=== PATIENT | male | born 1955 | race Caucasian/White ===

== ENCOUNTER 2023-04-11 20:49 | Outpatient (OUT) | payer MEDICARE, OTHER, SELFPAY | END 2023-04-11 20:50 | disposition home or self-care (01) | LOC: SLEEP 20:51 | PROVIDERS: PCP Internal Medicine; Visit Provider Internal Medicine | DX: G47.33 Obstructive sleep apnea (adult) (pediatric) (principal); I11.0 Hypertensive heart disease with 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; I25.10 Atherosclerotic heart disease of native coronary artery without angina pectoris; I50.20 Unspecified systolic (congestive) 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; F41.1 Generalized anxiety disorder; E78.00 Pure hypercholesterolemia, unspecified; N40.1 Benign prostatic hyperplasia with lower urinary tract symptoms | CPT/HCPCS: 95810 ==

== ENCOUNTER 2023-04-20 10:43 | Outpatient (OUT) | payer MEDICARE, OTHER, SELFPAY ==
[2023-04-20 12:23] LABS: Anion Gap 11.8; BUN Creatinine Ratio 27.2; Calcium 9.3 mg/dL (8.5-10.1); Carbon Dioxide 27.6 mmol/L (21.0-32.0); Chloride 103 mmol/L (98-107); Estimated GFR (African America >60 (>=60); Estimated GFR (Non-African Ame >60 (>=60); Glucose 103 mg/dL (74-106); Potassium 4.4 mmol/L (3.5-5.1)
[2023-04-20 13:20] LABS: Sodium 138 mmol/L (136-145)
== END 2023-04-20 10:44 | disposition home or self-care (01) ==
LOC: LAB 10:45
PROVIDERS: PCP Internal Medicine; Visit Provider Internal Medicine Cardiovascular Disease
DX: I50.9 Heart failure, unspecified (principal); I42.8 Other cardiomyopathies; R06.02 Shortness of breath
CPT/HCPCS: 36415; 80048; 83880

== ENCOUNTER 2023-05-04 22:43 | Outpatient (OUT) | payer MEDICARE, OTHER, SELFPAY | END 2023-05-04 22:44 | disposition home or self-care (01) | LOC: SLEEP 22:43 | PROVIDERS: PCP Internal Medicine; Visit Provider Internal Medicine | DX: G47.33 Obstructive sleep apnea (adult) (pediatric) (principal) | CPT/HCPCS: 95811 ==

== ENCOUNTER 2023-06-20 09:36 | Outpatient (OUT) | payer MEDICARE, OTHER, SELFPAY ==
[2023-06-20 11:02] LABS: Anion Gap 9.4; BUN Creatinine Ratio 23.7; Calcium 9.2 mg/dL (8.5-10.1); Carbon Dioxide 28.9 mmol/L (21.0-32.0); Chloride 101 mmol/L (98-107); Estimated GFR (African America >60 (>=60); Estimated GFR (Non-African Ame >60 (>=60); Glucose 126 mg/dL (74-106); Potassium 4.3 mmol/L (3.5-5.1); Sodium 135 mmol/L (136-145)
== END 2023-06-20 09:37 | disposition home or self-care (01) ==
PROVIDERS: PCP Internal Medicine; Visit Provider Nurse Practitioner
DX: I42.8 Other cardiomyopathies (principal)
CPT/HCPCS: 36415; 80048

== ENCOUNTER 2023-09-21 12:18 | Outpatient (RCR) | payer MEDICARE, OTHER, SELFPAY | END 2023-09-30 15:45 | disposition home or self-care (01) | LOC: MM 12:18 | PROVIDERS: PCP Internal Medicine; Visit Provider Internal Medicine | DX: Z51.81 Encounter for therapeutic drug level monitoring (principal); Z79.01 Long term (current) use of 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s; I48.91 Unspecified atrial fibrillation | CPT/HCPCS: 85610; G0463 ==

== ENCOUNTER 2023-10-03 00:38 | Outpatient (RCR) | payer MEDICARE, OTHER, SELFPAY | END 2023-11-02 15:45 | disposition home or self-care (01) | LOC: MM 00:38 | PROVIDERS: PCP Internal Medicine; Visit Provider Internal Medicine | DX: Z51.81 Encounter for therapeutic drug level monitoring (principal); Z79.01 Long term (current) use of 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s; I48.91 Unspecified atrial fibrillation | CPT/HCPCS: 85610; G0463; J3430 ==

== ENCOUNTER 2023-11-03 01:28 | Outpatient (RCR) | payer MEDICARE, OTHER, SELFPAY | END 2023-12-01 17:08 | disposition home or self-care (01) | LOC: MM 01:28 | PROVIDERS: PCP Internal Medicine; Visit Provider Internal Medicine | DX: Z51.81 Encounter for therapeutic drug level monitoring (principal); Z79.01 Long term (current) use of 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s; I48.91 Unspecified atrial fibrillation | CPT/HCPCS: 85610; G0463 ==

== ENCOUNTER 2023-12-02 01:03 | Outpatient (RCR) | payer MEDICARE, OTHER, SELFPAY | END 2023-12-30 13:00 | disposition home or self-care (01) | LOC: MM 01:03 | PROVIDERS: PCP Internal Medicine; Visit Provider Internal Medicine | DX: Z51.81 Encounter for therapeutic drug level monitoring (principal); Z79.01 Long term (current) use of 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s; I48.91 Unspecified atrial fibrillation | CPT/HCPCS: 85610; G0463 ==

== ENCOUNTER 2024-01-02 03:12 | Outpatient (RCR) | payer MEDICARE, OTHER, SELFPAY | END 2024-01-31 17:45 | disposition home or self-care (01) | LOC: MM 03:12 | PROVIDERS: PCP Internal Medicine; Visit Provider Internal Medicine | DX: Z51.81 Encounter for therapeutic drug level monitoring (principal); Z79.01 Long term (current) use of 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s; I48.91 Unspecified atrial fibrillation | CPT/HCPCS: 85610; G0463 ==

== ENCOUNTER 2024-01-31 16:50 | Outpatient (OUT) | payer MEDICARE, OTHER, SELFPAY ==
[2024-01-31 17:12] LABS: Basophils Absolute Auto 0.1 10^3/uL (0.0-0.1); Basophils Percent Auto 0.5 % (0.2-2.0); Eosinophils Absolute Auto 0.4 10^3/uL (0.0-0.7); Eosinophils Percent Auto 3.5 % (0.9-7.0); Hematocrit 36.5 % (42.0-54.0); Hemoglobin 12.5 g/dL (14.0-18.0); Immature Granulocytes Abs Auto 0.09 10^3/uL (0.00-0.03); Immature Granulocytes Pct Auto 0.7 % (0.0-0.5); Lymphocytes Percent Auto 23.8 % (20.5-60.0); Mean Corpuscular HGB Conc 34.2 g/dL (29.9-35.2); Mean Corpuscular Hemoglobin 31.4 pg (25.9-34.0); Mean Corpuscular Volume 91.7 fL (80.0-94.0); Mean Platelet Volume 9.8 fL (9.5-13.5); Monocytes Absolute Auto 1.2 10^3/uL (0.3-0.8); Monocytes Percent Auto 9.2 % (1.7-12.0); Neutrophils Absolute Auto 7.8 10^3/uL (1.4-6.5); Neutrophils Percent Auto 62.3 % (43.0-75.0); Platelet Count 236 10^3/uL (150-450); Red Blood Count 3.98 10^6/uL (4.70-6.10); Red Cell Distribution Width 13.3 % (11.0-15.0); White Blood Count 12.6 10^3/uL (4.0-11.0)
[2024-01-31 17:46] LABS: Percent Iron Saturation 24.4 %
== END 2024-01-31 16:51 | disposition home or self-care (01) ==
LOC: LAB 16:52
PROVIDERS: PCP Internal Medicine; Visit Provider Internal Medicine
DX: K92.1 Melena (principal); I10 Essential (primary) hypertension; I48.0 Paroxysmal atrial fibrillation
CPT/HCPCS: 36415; 82728; 83540; 83550; 85025

== ENCOUNTER 2024-02-01 00:14 | Outpatient (RCR) | payer MEDICARE, OTHER, SELFPAY | END 2024-03-02 11:07 | disposition home or self-care (01) | LOC: MM 00:14 | PROVIDERS: PCP Internal Medicine; Visit Provider Internal Medicine | DX: Z51.81 Encounter for therapeutic drug level monitoring (principal); Z79.01 Long term (current) use of 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s; I48.91 Unspecified atrial fibrillation | CPT/HCPCS: 85610; G0463 ==

== ENCOUNTER 2024-03-05 00:13 | Outpatient (RCR) | payer MEDICARE, OTHER, SELFPAY | END 2024-03-30 09:55 | disposition home or self-care (01) | LOC: MM 00:13 | PROVIDERS: PCP Internal Medicine; Visit Provider Internal Medicine | DX: Z51.81 Encounter for therapeutic drug level monitoring (principal); Z79.01 Long term (current) use of 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s; I48.91 Unspecified atrial fibrillation | CPT/HCPCS: 85610; G0463 ==

== ENCOUNTER 2024-03-23 17:05 | Outpatient (OUT) | payer MEDICARE, OTHER, SELFPAY ==
--- OUTSIDE RECORDS SUMMARY | 2024-03-23 17:12 | XMS_ITS | CCD ---
Author Organization [facility] Care Team Providers Care Batch Trucker Name Role Phone Jairo Corbin Unavailable DO Jairo Corbin Primary Care Provider DO Shalom Germain Emergency Provider DinamoMD Jair Solo Admit Provider DO Brad Livingston Attending Provider KRISTEN Chong Other Provider Unavailable DO Papo Lucio Other Provider MD Kings Banegas Other Provider [phone] MD Jorge Burger Other Provider [phone] MD John Pena Other Provider MD Dano Anderson Other Provider DIANA Ken Other Provider [phone] MD Mary Neal Other Provider MD Danny Teresa Other Provider MD Kerline Thompson Other Provider Tory [facility]- Sravani Julian Other Provider [phone] MD Sparkle Joseph Other Provider DO Papo Lucio Attending Provider DR JAIRO CORBIN Admitting Unavailable BALL, DR BARRETT Attending Unavailable BALL, DR BARRETT Consulting Unavailable BALL, DR BARRETT Primary Care Unavailable UNLU, ZARIA Consulting Unavailable SHAQUILLE, DR BARRETT Attending Unavailable BALL, DR BARRETT Consulting Unavailable BALL, DR BARRETT Primary Care Unavailable BALL, DR BARRETT Admitting Unavailable MECHELLE, DR IVÁN Carter Consulting Unavailable SHAQUILLE, DR BARRETT Attending Unavailable SHAQUILLE, DR BARRETT Consulting Unavailable SHAQUILLE, DR BARRETT Primary Care Unavailable SHAQUILLE, DR BARRETT Admitting Unavailable MECHELLE, DR IVÁN Carter Consulting Unavailable Jairo Corbin E Unavailable Unavailable Unavailable Shaquille, Dr. Jairo Lo Primary Care Alli Lucio, Dr. Jorge Crystal Referring Unava ilable Naveed, Dr. Jorge Crystal Attending Dinava deshaun Corbin, Dr. Jairo Lo Primary Care Alli Corbin, Dr. Jairo Lo Primary Care Alli Aldrigde, MsBrandon Chandler Referring Alli Aldridge, MsBrandon Chandler Attending Alli Corbin, Dr. Jairo Lo Primary Care Alli Lucio, Dr. Jorge Crystal Referring Unava ilable Naveed, Dr. Jorge Crystal Attending Dinava ilarianna Lucio, Dr. Jorge Crystal Attending Dinava ilDO Jairo Whyte Primary Care Provider [phone] DO Jairo Wild Attending Provider [phone] Jairo Corbin DO Primary Care Provider Jairo Wild DO Unavailable Unavailable Primary Care Provider Unavailabl Jairo Sr DO Primary Care Provider Brad Livingston Attending Unavailable Jairo Corbin Primary Care Unavailable Bing Chong Consulting Unavailable Jair Harp Admitting Unavailable Papo Lucio Consulting Unavailable Macie, Kings Consulting Unavailable Jorge Burger Consulting Unavail able John Pena Consulting Unavailable Dano Anderson Consulting Unavailab Karlo Parrish Consulting Unavailable Mary Neal Consulting Unavailable Danny Teresa Consulting Unavailab Kerline Oliver Consulting Unavailable Sravani Spears Consulting Unavailable Sparkle Joseph Consulting Unavailable Jairo Wild Attending Unavailable Jairo Corbin Primary Care Unavailable Jairo Wild Admitting Unavailable Papo Lucio Attending Unavailable Jairo Corbin Primary Care Unavailable Papo Lucio Admitting Unavailable Jairo Wild Attending Unavailable Jairo Corbin Primary Care Unavailable Jairo Wild Admitting Unavailable Ball, Jairo Primary Care Unavailable Bing Chong Consulting Unavailable Bon Harman Admitting UnavailBon Carbajal Attending UnavailPapo Mclain Consulting Unavailable Kings Banegas Consulting Unavailable Jorge Burger Consulting Unavail able John Pena Consulting Unavailable Justin, Dano Consulting Unavailab Karlo Parrish Consulting Unavailable Mary Neal Consulting Unavailable Danny Teresa Consulting Unavailab Kerline Oliver Consulting Unavailable Sravani Spears Consulting Unavailable Sparkle Joseph Consulting Unavailable Ball DO, Jairo E Primary Care Provider KENNETH NEALA Referring Unavailable BALL, JAIRO E Primary Care Unavailable ALDRIDGE, KARLO K Referring Unavailable BALL, JAIRO E Primary Care Unavailable ALDRIDGE, KARLO K Referring Unavailable BALL, JAIRO E Primary Care Unavailable ALDRIDGE, KARLO K Referring Unavailable BALL, JAIRO E Primary Care Unavailable ALDRIDGE, KARLO K Referring Unavailable BALL, JAIRO E Primary Care Unavailable ALDRIDGE, KARLO K Attending Unavailable BALL, JAIRO E Primary Care Unavailable NEAL, MARY Attending Unavailable BALL, JAIRO E Primary Care Unavailable ALDRIDGE, KARLO K Referring Unavailable NEAL, MARY Attending Unavailable NEAL, MARY Referring Unavailable BALL, JAIRO E Primary Care Unavailable NEAL, MARY Attending Unavailable NEAL, MARY Referring Unavailable BALL, JAIRO E Primary Care Unavailable ALDRIDGE, KARLO K Attending Unavailable NEAL, MARY Referring Unavailable BALL, JAIRO E Primary Care Unavailable Allergies Allergy Classification Reported Allergen(s) Allergy Type Date of Onset Reaction(s) Facility (20 sources) Corticosteroids Propensity to adverse reactions sensitivty Sefaira Other (5 sources) Usbzczf-GAJ-ArC Reductase Inhibitor; Translations: [Dccbgdj-LBJ-SeU Reductase Inhibitor] Propensity to adverse reactions 02-26-20 Hives, muscle aches [facility] (5 sources) Hmg-Coa Reductase Inhibitors (Statins); Translations: [Statins] Allergy to drug (finding) Other -[facility] DO Work Phone: (8 sources) HMG-CoA reductase inhibitor; Translations: [MQCLPEG-FUD-YRA REDUCTASE INHIBITORS] Drug Allergy 07-05-20 23 Unknown, Other (See Comments) [facility] (7 sources) Non-steroidal anti-inflammatory agent; Translations: [NSAIDS (NON-STEROIDAL ANTI-INFLAMMATORY DRUG)] Drug Intolerance 01-03-20 08 Unknown, Other (See Comments) [facility] (3 sources) Corticosteroids; Translations: [Corticosteroids (Glucocorticoids)] Allergy to substance 11-01-19 24 sensitivty [facility] Medications Current Medications Medication Drug Class(es) Dates Sig (Normalized) Sig (Original) ascorbic acid 1000 mg oral tablet (20 sources) Vitamin C Start: 01-31-2024 Ascorbic Acid (Vitamin C) (Vitamin C With Gabbi Hips) 1,000 mg tablet Active 500 MG PO Daily January 31, 2024 3:50pm Start: 09-01-2023 End: 01-31-2024 take 1 tablet by mouth once daily Ascorbic Acid (Vitamin C) (Vitamin C With Gabbi Hips) 1,000 mg Tablet Discontinued 1000 MG PO Daily September 01, 2023 1:00am January 31, 2024 3:54pm Start: 02-24-2023 End: 10-21-2023 take 1 tablet by mouth once daily Ascorbic Acid (Vitamin C) (Vitamin C) 500 mg Tablet,Chewable Discontinued 500 MG PO Daily February 24, 2023 12:00am October 21, 2023 5:11pm take 1 capsule by mo [facility] once daily ascorbic acid, vitamin C, 500 mg capsule Take 1 capsule by mouth once daily. Active take 2 tablets by mo [facility] every twenty-four hours Vitamin C 500 MG 2 tablets Orally Once a day Active aspirin 81 mg delayed release oral tablet (20 sources) Platelet Aggregation Inhibitor, Nonsteroidal Anti-inflammatory Drug Start: 02-27-2023 End: 09-05-2023 take 1 tablet by mouth every twenty-four hours Aspirin 81 81 MG 1 tablet Orally Once a day January, Active Start: 02-27-2023 take 1 tablet by mouth once da lissette Aspirin 81 81 MG 1 tablet Orally Once a day for 30 days January, Active Start: 02-25-2023 take 1 tablet by mouth once da lissette Aspirin (Children's Aspirin) 81 mg Tablet,Chewable Active 81 MG PO Daily 90 90 February 25, 2023 12:00am carvedilol 12.5 mg oral tablet (20 sources) alpha-Adrenergic Fannie, beta-Adrenergic Fannie Start: 02-27-2023 End: 01-31-2024 take 1 tablet by mouth twice daily at mealtime carvedilol (Coreg) 12.5 mg tablet Take 1 tablet (12.5 mg) by mouth 2 times a day with meals. 10/24/2023 Active Start: 02-25-2023 End: 11-10-2023 take 6.25 mg by mouth twice daily at mealtime Carvedilol Discontinued 6.25 MG PO Twice daily with meals 60 February 25, 2023 12:00am October 24, 2023 2:28pm cetirizine hydrochloride 10 mg oral tablet (12 sources) Histamine-1 Receptor Antagonist Start: 09-01-2023 take 10 mg by mouth at bedtime Cetirizine Active 10 MG PO Bedtime September 01, 2023 1:00am take 1 capsule by mo ut once daily at bedtime cetirizine (ZYRTEC) 10 mg capsule Take 1 capsule (10 mg) by mouth once daily at bedtime. Active digoxin 0.125 mg oral tablet (7 sources) Cardiac Glycoside Start: 10-24-2023 digoxin (Lanoxin) 125 MCG tablet 1 tablet (125 mcg) once daily. 10/24/2023 Active doxycycline hyclate 100 mg oral capsule (7 sources) Tetracycline-cla ss Drug Start: 12-10-2022 take 1 capsule by mouth twice daily Doxycycline Hyclate 100 MG 1 capsule Orally twice daily for 7 days Dec, Active Fish Oils (20 sources) furosemide 20 mg oral tablet (20 sources) Loop Diuretic Start: 11-10-2023 End: 11-09-2024 take 1 tablet by mouth twice daily furosemide (Lasix) 20 mg tablet Indications: 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 congestive 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, NYHA class 2 (Multi) , Persistent atrial fibrillation (Multi) Take 1 tablet (20 mg) by mouth 2 times a day. 180 tablet 3 11/10/2023 11/09/2024 Active Start: 10-24-2023 End: 01-31-2024 take 2 tablets by mouth once daily Furosemide (Lasix) 20 mg tablet Discontinued 40 MG PO Daily 60 October 24, 2023 12:22pm January 31, 2024 3:54pm Start: 10-21-2023 End: 10-24-2023 take 10 mg by mouth once daily Furosemide (Lasix) 20 m g tablet Discontinued 10 MG PO Daily October 21, 2023 1:00am October 24, 2023 12:22pm Start: 09-29-2023 End: 11-10-2023 take 0.5 tablet by mouth once daily furosemide (Lasix) 20 mg tablet Indications: Non-ischemic cardiomyopathy (CMS/HCC) , 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 congestive 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, NYHA class 2 (CMS/HCC) Take 0.5 tablets (10 mg) by mouth once daily. 90 tablet 0 09/29/2023 11/10/2023 Discontinued (Dose adjustment) Start: 02-27-2023 take 1 tablet by [facility] every twenty-four hours Furosemide 40 MG 1 tablet Orally Once a day January, Active Start: 02-25-2023 End: 10-21-2023 take 1 tablet by mouth once daily Furosemide (Lasix) 20 mg tablet Discontinued 20 MG PO Daily February 25, 2023 12:00am October 21, 2023 5:18pm gabapentin 100 mg oral capsule (7 sources) Anti-epileptic Agent Gabapentin 100 MG Orally Active inositol 100 mg / niacin 400 mg oral capsule (8 sources) Nicotinic Acid Start: 09-01-2023 niacin, inositol niacinate, 400 mg niacin (500 mg) capsule 1 capsule if needed. 09/01/2023 Active Start: 09-01-2023 take 1 capsule by [facility] once daily at bedtime Niacin (Inositol Niacinate) (Niacin Flush Free) 400 mg niacin (500 mg) Capsule Active 1 CAP PO Daily at bedtime September 01, 2023 1:00am Magnesium Oxide (16 sources) Start: 01-31-2024 take 300 mg by mouth once daily Magnesium Oxide Active 300 MG PO Daily January 31, 2024 12:00am Start: 02-25-2023 End: 01-31-2024 take 400 mg by mouth once daily Magnesium Oxide Discontinued 400 MG PO Daily February 25, 2023 12:00am January 31, 2024 8:43am magnesium oxide 300 mg magnesium tablet (2 sources) magnesium oxide 300 mg magnesium tablet Take by mouth. Active meloxicam 15 mg oral tablet (20 sources) Nonsteroidal Anti-inflammatory Drug Start: 11-09-2022 End: 01-31-2024 take 15 mg by mouth once daily Meloxicam Active 15 MG PO Daily January 31, 2024 12:00am niacin 500 mg oral tablet (6 sources) Nicotinic Acid take 1 tablet by mouth every twenty-four hours Niacin 500 MG 1 tablet with food Orally Once a day Active End: 09-29-2023 take 2 tablets by mouth once daily niacin 500 mg tablet Take 2 tablets (1,000 mg) by mouth once daily. 0 09/29/2023 Discontinued (Therapy completed) sacubitril 24 mg / valsartan 26 mg oral tablet (20 sources) Angiotensin 2 Receptor Fannie Start: 12-23-2023 End: 03-22-2024 sacubitriL-valsartan (Entresto) 24-26 mg tablet Indications: Non-ischemic cardiomyopathy (Multi) , 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 congestive 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, NYHA class 2 (Multi) Take 1 tablet by mouth 2 times a day. 180 tablet 12/23/2023 03/22/2024 Active Start: 09-01-2023 End: 01-31-2024 take 1 tablet by mouth once daily Sacubitril-Valsartan (Entresto) 24-26 mg tablet Discontinued 1 TAB PO Daily September 01, 2023 10:20am January 31, 2024 3:52pm Start: 03-02-2023 End: 09-29-2023 take 1 tablet by mouth twice daily Sacubitril-Valsartan (Entresto) 24-26 mg tablet Discontinued 1 TAB PO Twice daily 60 March 02, 2023 12:00am September 01, 2023 10:20am Selenium (1 source) Start: 01-31-2024 take 50 ug by mouth once daily Selenium Active 50 MCG PO Daily January 31, 2024 12:00am selenium 50 mcg tablet (2 sources) take 1 tablet by mouth once daily selenium 50 mcg tablet Take 1 tablet (50 mcg) by mouth once daily. Active spironolactone 25 mg oral tablet (20 sources) Aldosterone Antagonist Start: 02-27-2023 Spironolactone 25 MG 1 tablet Orally January, Active Start: 02-25-2023 take 0.5 tablet by m outh once daily Spironolactone 25 MG 1/2 tablet Orally daily January, Active Start: 02-25-2023 take 12.5 mg by mout h once daily Spironolactone Active 12.5 MG PO Daily February 25, 2023 12:00am warfarin sodium 1 mg oral tablet (11 sources) Vitamin K Antagonist Start: 10-19-2023 warfarin (Coumadin) 1 mg tablet Take as directed by [facility] 10/19/2023 Active Start: 09-23-2023 End: 10-23-2023 take 1 tablet by mouth once daily in the evening warfarin (Coumadin) 5 mg tablet Indications: Paroxysmal atrial fibrillation (Multi) Take 1 tablet (5 mg) by mouth once daily in the evening. Take as directed. 30 tablet 09/23/2023 Active XyliMelts 500 MG (1 source) XyliMelts 500 MG as directed Mouth/Throat Active Xylitol (Xylimelts) 500 mg Muco-Adhesive Buccal Tablet (5 sources) Start: 09-01-2023 Xylitol (Xylim elts) 500 mg Muco-Adhesive Buccal Tablet Active 500 MG MUCOUS MEM Bedtime September 01, 2023 1:00am Start: 09-01-2023 Xylitol (Xylim elts) 500 mg Muco-Adhesive Buccal Tablet Active 500 MG MUCOUS MEM Bedtime September 01, 2023 12:00am Zinc (13 sources) Start: 02-24-2023 take 25 mg by mouth at bedtime Zinc Active 25 MG PO Bedtime February 23, 2023 11:00pm Start: 02-24-2023 take 25 mg by mouth at bedtime Zinc Active 25 MG PO Bedtime February 24, 2023 12:00am Zinc 25 MG TABS TAKE 1 TABLET DAILY. Quantity: 0 Refills: 0 Ordered: 03-Mar-2023 DO Active zinc acetate 25 mg oral capsule (5 sources) take 1 capsule by mo uth once daily zinc acetate 25 mg (zinc) capsule Take 1 capsule by mouth once daily. Active zinc gluconate 50 mg oral tablet (1 source) take 0.5 tablet by m outh once daily Zinc 50 MG 1/2 tablet Orally Once a day Active Completed/Discontinued Medications Medication Drug Class(es) Dates Sig (Normalized) Sig (Original) ALPRAZolam 0.5 mg oral tablet (20 sources) Benzodiazepine Start: 12-07-2023 End: 01-31-2024 take 0.5 mg by mouth three times daily Alprazolam Discontinued 0.5 MG PO Three times daily December 07, 2023 10:56pm January 31, 2024 3:54pm Start: 02-23-2023 End: 12-07-2023 take 0.75 mg by mouth once daily at bedtime Alprazolam Discontinued 0.75 MG PO Daily at bedtime February 23, 2023 12:00am December 07, 2023 10:58pm Start: 02-23-2023 take 0.75 mg by mout h twice daily Alprazolam Active 0.75 MG PO Twice daily February 23, 2023 12:00am Start: 12-15-2022 take 1-1.5 tablets b y mouth twice daily as needed Alprazolam Active 0.5 MG PO .COMPLEX January 31, 2024 3:49pm 0.5 mg orally 1 - 1.5 tablets BID PRN; take 1 tablet by alfonso th every eight hours Xanax 0.5 MG 1 tablet Orally Three times a day Active amoxicillin 500 mg / clavulanate 125 mg oral tablet (12 sources) Penicillin-class Antibacterial Start: 10-21-2023 End: 01-31-2024 take 1 tablet by mouth three times daily Amoxicillin-Pot Clavulanate (Augmentin) 500-125 mg tablet Discontinued 1 TAB PO Three times daily October 21, 2023 1:00am January 31, 2024 8:41am Start: 02-23-2023 End: 02-25-2023 take 1 tablet by mouth every twelve hours Amoxicillin-Pot Clavulanate (Augmentin) 875-125 mg Tablet Discontinued 1 TAB PO Q12H February 23, 2023 12:00am February 25, 2023 12:47pm Start: 02-09-2023 take 1 tablet by alfonso th every twelve hours Amoxicillin-Pot Clavulanate 875-125 MG 1 tablet Orally every 12 hrs for 14 days January, Active take 1 tablet by alfonso th every twelve hours Augmentin 500-125 MG 1 tablet Orally every 12 hrs Active atorvastatin 40 mg oral tablet (14 sources) HMG-CoA Reductase Inhibitor Start: 02-25-2023 End: 03-02-2023 take 40 mg by mouth once daily in the evening Atorvastatin Discontinued 40 MG PO Every evening February 25, 2023 12:00am March 02, 2023 12:31pm benazepril hydrochloride 10 mg oral tablet (9 sources) Angiotensin Converting Enzyme Inhibitor Start: 02-23-2023 End: 02-25-2023 take 10 mg by mouth once daily Benazepril Discontinued 10 MG PO Daily February 23, 2023 12:00am February 25, 2023 12:47pm take 1 tablet by mouth once bay y Benazepril HCl 10 mg TAKE 1 TABLET BY MOUTH DAILY Active cholecalciferol 0.05 mg oral capsule (9 sources) Vitamin D Start: 02-24-2023 End: 01-31-2024 take 1 capsule by mouth once daily Cholecalciferol (Vitamin D3) (Vitamin D3) 50 mcg (2,000 unit) Capsule Discontinued 50 MCG PO Daily February 24, 2023 12:00am January 31, 2024 3:50pm take 1 tablet by mouth once bay y Vitamin D3 50 MCG (2000 UT) Oral Tablet Take 1 tablet daily Quantity: 0 Refills: 0 Ordered: 03-Mar-2023 DO Active empagliflozin 10 mg oral tablet (4 sources) Sodium-Glucose Cotransporter 2 Inhibitor Start: 04-15-2023 take 1 tablet by mouth once daily Jardiance 10 MG Oral Tablet TAKE 1 TABLET BY MOUTH ONCE DAILY Quantity: 90 Refills: 3 Ordered: 15-Apr-2023 Jorge Lucio DO Start : 15-Apr-2023 Active losartan potassium 25 mg oral tablet (14 sources) Angiotensin 2 Receptor Fannie Start: 02-25-2023 End: 03-02-2023 take 25 mg by mouth once daily in the morning Losartan Discontinued 25 MG PO Every morning February 25, 2023 12:00am March 02, 2023 3:16pm Magnesium (14 sources) Start: 02-27-2023 Magnesium 400 MG as directed Orally January, Not-Taking/PRN Start: 02-27-2023 Magnesium 400 MG as directed Orally January, Active Magnesium Carb,Citrate,Oxide (Magnesium Complex) 300 mg magnesium Tablet (6 sources) Start: 02-24-2023 End: 02-25-2023 take 1 tablet by mouth at bedtime Magnesium Carb,Citrate,Oxide (Magnesium Complex) 300 mg magnesium Tablet Discontinued 300 MG PO Bedtime February 23, 2023 11:00pm February 25, 2023 11:47am Start: 02-24-2023 End: 02-25-2023 take 1 tablet by mouth at bedtime Magnesium Carb,Citrate,Oxide (Magnesium Complex) 300 mg magnesium Tablet Discontinued 300 MG PO Bedtime February 24, 2023 12:00am February 25, 2023 12:47pm melatonin 5 mg oral tablet (15 sources) Start: 02-24-2023 End: 01-31-2024 take 5 mg by mouth at bedtime Melatonin Discontinued 5 MG PO Bedtime February 24, 2023 12:00am January 31, 2024 3:51pm take 1 tablet by mouth at bedtim e Melatonin 300 MCG Oral Tablet TAKE 1 TABLET Bedtime Quantity: 0 Refills: 0 Ordered: 03-Mar-2023 DO Active niacinamide 500 mg oral tablet (6 sources) End: 09-05-2023 take 1 tablet by mouth once daily niacinamide 500 mg tablet Take 1 tablet (500 mg) by mouth once daily. 0 09/05/2023 Discontinued (Therapy completed) 24 hr nitroglycerin 0.2 mg/hr transdermal system (6 sources) Nitrate Vasodilator Start: 02-25-2023 End: 03-02-2023 Nitroglycerin Discontinued 1 EACH TRANSDERML DAILY@0600 30 February 25, 2023 12:00am March 02, 2023 12:33pm [place] 9-Wsd-Eqh-Fish Oil (Fish Oil) 60-90-500 mg capsule (1 source) Start: 01-31-2024 End: 01-31-2024 take 1 capsule by mouth once daily [place] 7-Rvz-Oax-Fish Oil (Fish Oil) 60-90-500 mg capsule Discontinued 1 CAP PO Daily January 31, 2024 12:00am January 31, 2024 3:51pm microencapsulated potassium chloride 10 meq extended release oral tablet (20 sources) Start: 02-27-2023 take 1 tablet by mouth every twelve hours Klor-Con M10 10 MEQ 1 tablet with food Orally Twice a day for 30 days January, Not-Taking/PRN Start: 02-25-2023 Potassium Chlo ride (Klor-Con 10) 10 mEq Tablet Extended Release Active 20 MEQ PO Daily 60 February 24, 2023 11:00pm Start: 02-24-2023 End: 02-25-2023 take 10 mEq by mouth once daily Potassium Chloride Dis continued 10 MEQ PO Daily February 24, 2023 12:00am February 25, 2023 12:47pm take 1 tablet by alfonso th once daily Potassium Chloride ER 20 MEQ Oral Tablet Extended Release Take 1 tablet daily Quantity: 90 Refills: 3 Ordered: 03-Mar-2023 DO Active Potassium Iodide (6 sources) End: 09-05-2023 take 1 tablet by mouth once daily POTASSIUM IODIDE ORAL Take 1 tablet by mouth once daily. 0 09/05/2023 Discontinued (Therapy completed) Potassium Iodide TABS 1 daily Quantity: 0 Refills: 0 Ordered: 15-Apr-2023 DO Active rivaroxaban 20 mg oral tablet (4 sources) Factor Xa Inhibitor Start: 09-16-2023 End: 09-29-2023 take 1 tablet by mouth once daily at mealtime rivaroxaban (Xarelto) 20 mg tablet Indications: Dilated cardiomyopathy (CMS/HCC) Take 1 tablet (20 mg) by mouth once daily in the evening. Take with meals. Take with food. 14 tablet 0 09/16/2023 09/29/2023 Discontinued (Therapy completed) Start: 09-05-2023 take 1 tablet by alfonso th once daily at mealtime rivaroxaban (Xarelto) 20 mg tablet Indications: Dilated cardiomyopathy (CMS/HCC) Take 1 tablet (20 mg) by mouth once daily in the evening. Take with meals. Take with food. 14 tablet 0 09/05/2023 Active traMADol hydrochloride 50 mg oral tablet (20 sources) Opioid Agonist Start: 11-27-2022 End: 01-02-2024 take 50 mg by mouth every six hours Tramadol Discontinued 50 MG PO Q6H February 23, 2023 12:00am January 02, 2024 5:48pm Problems Active Problems Problem Classification Problem Date Documented Da te Episodic/Chronic Acute bronchitis (1 source) Acute bronchitis due to other specified organisms Episodic Anxiety disorders (20 sources) Generalized anxiety disorder; Translations: [Generalized anxiety disorder] Chronic Cardiac dysrhythmias (20 sources) Paroxysmal atrial fibrillation; Translations: [Paroxysmal atrial fibrillation] Onset: 09-05-2023 09-05-2023 Chronic Cardiac dysrhythmias (6 sources) Tachycardia, unspecified; Translations: [Sinus bradycardia] Onset: 01-30-2024 Episodic Chronic obstructive pulmonary disease and bronchiectasis (1 source) Bronchitis, not specified as acute or chronic Episodic Congestive 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; nonhypertensive (20 sources) Acute systolic (congestive) 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; Translations: [Congestive 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] Onset: 02-24-2023 Resolved: 09-05-2023 Chronic Coronary atherosclerosis and other heart disease (20 sources) Coronary arteriosclerosis; Translations: [Atherosclerotic heart disease of [place] coronary artery without angina pectoris] Onset: 06-22-2023 Chronic Disorders of lipid metabolism (18 sources) Hypercholesterolemia ; Translations: [Pure hypercholesterolemia , unspecified] Chronic Disorders of teeth and jaw (8 sources) Dental caries; Translations: [Dental caries, unspecified] Onset: 10-21-2023 10-21-2023 Episodic Essential hypertension (20 sources) Essential hypertension; Translations: [Essential (primary) hypertension] Onset: 03-01-2023 Chronic Gastrointestinal hemorrhage (1 source) Melena; Translations: [Melena] 01-31-2024 Episodic Genitourinary symptoms and ill-defined conditions (1 source) Nocturia Episodic Hyperplasia of prostate (15 sources) Nocturia due to benign prostatic hypertrophy; Translations: [Benign prostatic hyperplasia with lower urinary tract symptoms] Chronic Hypertension with complications and secondary hypertension (1 source) Hypertensive heart disease with 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; Translations: [Hypertensive heart disease with 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] Onset: 03-02-2023 Chronic Nonmalignant breast conditions (3 sources) Hypertrophy of breast; Translations: [HYPERTROPHY OF BREAST] Onset: 03-02-2023 Episodic Nonspecific chest pain (7 sources) Chest pain; Translations: [Chest pain, unspecified] Episodic Osteoarthritis (12 sources) Bilateral primary osteoarthritis of hip; Translations: [Osteoarthritis of knee] Onset: 11-17-2017 Chronic Other aftercare (2 sources) terminal gauger (current) use of opiate analgesic; Translations: [terminal gauger (current) use of opiate analgesic] Episodic Other aftercare (4 sources) High risk drug monitoring status; Translations: [USP (current) use of opiate analgesic] Episodic Other gastrointestinal disorders (15 sources) Dysphagia; Translations: [Dysphagia] Episodic Other lower respiratory disease (6 sources) Orthopnea; Translations: [Orthopnea] 02-24-2023 Episodic Other lower respiratory disease (5 sources) Paroxysmal nocturnal dyspnea; Translations: [Dyspnea, unspecified] 02-23-2023 Episodic Other lower respiratory disease (2 sources) Dyspnea, unspecified; Translations: [Other respiratory abnormalities] Onset: 10-21-2023 02-25-2023 Episodic Other nervous system disorders (2 sources) Impaired cognition; Translations: [Other symptoms and signs involving cognitive functions and awareness] 10-21-2023 Episodic Other nervous system disorders (3 sources) Other symptoms and signs involving cognitive functions and awareness; Translations: [Unspecified persistent mental disorders due to conditions classified elsewhere] Onset: 10-21-2023 10-21-2023 Episodic Other nutritional; endocrine; and metabolic disorders (15 sources) Body mass index 30+ - obesity; Translations: [Body mass index (BMI) 30.0-30.9, adult] Onset: 01-30-2024 01-30-2024 Chronic Other nutritional; endocrine; and metabolic disorders (5 sources) Other obesity due to excess calories; Translations: [Other obesity due to excess calories] Onset: 06-22-2023 Chronic Other nutritional; endocrine; and metabolic disorders (4 sources) Body mass index (BMI) 30.0-30.9, adult; Translations: [Body mass index (BMI) 30.0-30.9, adult] Onset: 06-22-2023 Chronic Other nutritional; endocrine; and metabolic disorders (3 sources) Obesity caused by energy imbalance; Translations: [Other obesity due to excess calories] 09-05-2023 Chronic Other nutritional; endocrine; and metabolic disorders (3 sources) Body mass index (BMI) 31.0-31.9, adult; Translations: [Body mass index (BMI) 31.0-31.9, adult] Onset: 01-30-2024 Chronic Other nutritional; endocrine; and metabolic disorders (2 sources) Obesity, unspecified; Translations: [Obesity, unspecified] Onset: 09-29-2023 Chronic Other screening for suspected conditions (not mental disorders or infectious disease) (18 sources) Liver enzymes abnormal; Translations: [Elevated liver enzymes] Onset: 03-02-2023 Episodic Other upper respiratory infections (20 sources) Chronic maxillary sinusitis; Translations: [Chronic maxillary sinusitis] Onset: 02-19-2023 Chronic Other upper respiratory infections (1 source) Acute maxillary sinusitis, unspecified Episodic Huma-; endo-; and myocarditis; cardiomyopathy (except that caused by tuberculosis or sexually transmitted disease) (20 sources) Cardiomyopathy; Translations: [Other cardiomyopathies] Onset: 05-05-2023 Chronic Residual codes; unclassified (20 sources) Obstructive sleep apnea syndrome; Translations: [Obstructive sleep apnea (adult) (pediatric)] Onset: 06-22-2023 09-05-2023 Chronic Residual codes; unclassified (11 sources) Obstructive sleep apnea (adult) (pediatric); Translations: [Obstructive sleep apnea (adult)(pediatric)] Onset: 09-05-2023 Chronic Residual codes; unclassified (5 sources) Sleep apnea; Translations: [Sleep apnea, unspecified] 02-24-2023 Chronic Residual codes; unclassified (5 sources) Sleep apnea, unspecified; Translations: [Unspecified sleep apnea] Onset: 02-24-2023 02-25-2023 Chronic Residual codes; unclassified (5 sources) Obstructive sleep apnea of adult; Translations: [Obstructive sleep apnea (adult)(pediatric)] Chronic Residual codes; unclassified (2 sources) Other specified health status; Translations: [Statin intolerance] Episodic Spondylosis; intervertebral disc disorders; other back problems (20 sources) Lumbar spondylosis; Translations: [Spondylosis without myelopathy or radiculopathy, lumbar region] Chronic Substance-related disorders (6 sources) Tobacco user; Translations: [Nicotine dependence, cigarettes, in remission] Chronic Unclassified (1 source) Encounter for preprocedural laboratory examination; Translations: [Encounter for preprocedural laboratory examination] Onset: 09-01-2023 Unclassified (6 sources) Other persistent atrial fibrillation; Translations: [Other persistent atrial fibrillation (Multi)] Onset: 09-29-2023 Unclassified (1 source) Personal history of COVID-19; Translations: [Personal history of COVID-19] Onset: 09-29-2023 Past or Other Problems Problem Classification Problem Date Documented Da te Episodic/Chronic Hepatitis (20 sources) Viral hepatitis C; Translations: [Hepatitis C] Onset: 09-30-2015 Episodic Other aftercare (5 sources) Other terminal gauger (current) drug therapy; Translations: [[facility] CURRENT DRUG THERAPY] Onset: 03-02-2023 Episodic Other aftercare (8 sources) Long-term current use of 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; Translations: [USP (current) use of 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s] Onset: 09-07-2023 09-07-2023 Episodic Other aftercare (5 sources) Treatment changed; Translations: [Other [facility] (current) drug therapy] Onset: 09-29-2023 09-29-2023 Episodic Other aftercare (4 sources) Post-discharge follow-up; Translations: [Encounter for follow-up examination after completed treatment for conditions other than malignant neoplasm] Onset: 11-10-2023 11-10-2023 Episodic Other aftercare (2 sources) Encounter for follow-up examination after completed treatment for conditions other than malignant neoplasm; Translations: [Encounter for follow-up examination after completed treatment for conditions other than malignant neoplasm] Onset: 11-10-2023 Episodic Other aftercare (2 sources) terminal gauger (current) use of 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s; Translations: [terminal gauger (current) use of 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s] Onset: 09-07-2023 Episodic Other infections; including parasitic (5 sources) Personal history of other infectious and parasitic diseases; Translations: [Personal history of COVID-19] Onset: 09-29-2023 09-29-2023 Episodic Other lower respiratory disease (5 sources) Orthopnea; Translations: [Orthopnea] Onset: 02-24-2023 02-25-2023 Episodic Other lower respiratory disease (13 sources) Dyspnea; Translations: [Shortness of breath] Onset: 06-22-2023 06-22-2023 Episodic Other lower respiratory disease (2 sources) Shortness of breath; Translations: [Shortness of breath] Onset: 06-22-2023 Episodic Other nutritional; endocrine; and metabolic disorders (17 sources) Obesity; Translations: [Other obesity due to excess calories] Onset: 06-22-2023 Resolved: 09-29-2023 06-22-2023 Chronic Other nutritional; endocrine; and metabolic disorders (5 sources) Obese class I; Translations: [Obesity, unspecified] Onset: 09-29-2023 Resolved: 11-10-2023 09-29-2023 Chronic Other nutritional; endocrine; and metabolic disorders (10 sources) Overweight in adulthood with body mass index of 25 or more but less than 30; Translations: [Overweight] Onset: 06-22-2023 Resolved: 09-29-2023 06-22-2023 Episodic Other upper respiratory disease (2 sources) Hypertrophy of nasal turbinates; Translations: [Hypertrophy of nasal turbinates] Onset: 04-04-2018 Episodic Other upper respiratory disease (4 sources) Hypertrophy of nasal turbinates; Translations: [Hypertrophy of nasal turbinates] Onset: 04-04-2018 Episodic Residual codes; unclassified (4 sources) Other amnesia; Translations: [OTHER AMNESIA] Onset: 06-01-2022 Episodic Screening and history of mental health and substance abuse codes (15 sources) Ex-smoker; Translations: [Personal history of tobacco use] Onset: 06-22-2023 06-22-2023 Episodic Comment on above: quit 2007; Unclassified (5 sources) Onset: 09-05-2023 Resolved: 11-10-2023 09-05-2023 Unclassified (1 source) Personal history of COVID-19; Translations: [Personal history of COVID-19] Onset: 09-29-2023 Viral infection (1 source) COVID-19 Results Test Name Value Interpretation Reference Range Facility TRANSTHORACIC ECHO (TTE) [facility] PLETEon 02-11-2024 TRANSTHORACIC ECHO (TTE) COMPLETE [address], [address] [place] [address] TRANSTHORACIC ECHOCARDIOGRAM REPORT Patient Name: VICK Hsu Physician: [id number] John Pena MD Study Date: 02/11/2024 Ordering Provider: [id number] MARY NEAL MRN/PID: [id number] Fellow: Nurse: Date of /Age: 6 1955 / 68 years Booth Supervisor: Francie Martin RDCS, RDMS, RVT Gender: M Additional Staff: Height: 177.80 cm Admit Date: Weight: 99.79 kg Admission Status: Outpatient BSA / BMI: 2.17 m2 / 31.57 Department Location: [address] Blood Pressure: 132 /64 mmHg Study Type: TRANSTHORACIC ECHO (TTE) COMPLETE Diagnosis/ICD: Paroxysmal atrial fibrillation-I48.0; 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 (congestive) 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 (CHF)-I50.22; Other cardiomyopathies-I42.8 Indication: Afib, NICM, CHF, HTN, JANETTE CPT Codes: Echo Complete w Full Doppler-[id number] Study Detail: The following Echo studies were performed: 2D, M-Mode, Doppler and color flow. PHYSICIAN INTERPRETATION: Left Ventricle: Left ventricular systolic function is low normal, with an estimated ejection fraction of 50-55%. There are no regional wall motion abnormalities. The left ventricular cavity size is normal. Spectral Doppler shows a normal pattern of left ventricular diastolic filling. Left Atrium: The left atrium is normal in size. Right Ventricle: The right ventricle is normal in size. There is normal right ventricular global systolic function. Right Atrium: The right atrium is normal in size. Aortic Valve: The aortic valve appears structurally normal. There is no evidence of aortic valve regurgitation. The peak instantaneous gradient of the aortic valve is 10.5 mmHg. The mean gradient of the aortic valve is 6.0 mmHg. Mitral Valve: The mitral valve is normal in structure. There is trace mitral valve regurgitation. Tricuspid Valve: The tricuspid valve is structurally normal. There is trace tricuspid regurgitation. Pulmonic Valve: The pulmonic valve is structurally normal. There is no indication of pulmonic valve regurgitation. Pericardium: There is no pericardial effusion noted. Aorta: The aortic root is normal. CONCLUSIONS: 1. Left ventricular systolic function is low normal with a 50-55% estimated ejection fraction. 2. Trace mitral valve regurgitation. 3. Trace tricuspid regurgitation is visualized. 4. No previous study available for comparison. QUANTITATIVE DATA SUMMARY: 2D MEASUREMENTS: Normal Ranges: Ao Root d: 3.40 cm (2.0-3.7cm) LAs: 4.70 cm (2.7-4.0cm) RVIDd: 2.94 cm (0.9-3.6cm) IVSd: 1.36 cm (0.6-1.1cm) LVPWd: 1.36 cm (0.6-1.1cm) LVIDd: 4.79 cm (3.9-5.9cm) LVIDs: 3.75 cm LV Mass Index: 120.3 g/m2 LV % FS 21.7 % AORTA MEASUREMENTS: Normal Ranges: Asc Ao, d: 3.40 cm (2.1-3.4cm) LV SYSTOLIC FUNCTION BY 2D PLANIMETRY (MOD): Normal Ranges: EF-A4C View: 46.3 % (>=55%) EF-A2C View: 48.4 % EF-Biplane: 48.9 % LV DIASTOLIC FUNCTION: Normal Ranges: MV Peak E: 0.74 m/s (0.7-1.2 m/s) MV Peak A: 0.48 m/s (0.42-0.7 m/s) E/A Ratio: 1.53 (1.0-2.2) MV lateral e' 0.09 m/s MV medial e' 0.07 m/s E/e' Ratio: 8.40 (<8.0) AORTIC VALVE: Normal Ranges: AoV Vmax: 1.62 m/s (<=1.7m/s) AoV Peak P.5 mmHg (<20mmHg) AoV Mean P.0 mmHg (1.7-11.5mmHg) LVOT Max Lucius: 0.54 m/s (<=1.1m/s) AoV VTI: 35.00 cm (18-25cm) LVOT VTI: 11.80 cm LVOT Diameter: 2.20 cm (1.8-2.4cm) AoV Area, VTI: 1.28 cm2 (2.5-5.5cm2) AoV Area,Vmax: 1.27 cm2 (2.5-4.5cm2) AoV Dimensionless Index: 0.34 PULMONIC VALVE: Normal Ranges: PV Max Lucius: 0.7 m/s (0.6-0.9m/s) PV Max P.9 mmHg [id number] John Pena MD Electronically signed on 02/13/2024 at 1:00:52 PM Final Normal [facility] ECG 12 Leadon 01-31-2024 [facility] Work Phone: Basic Metabolic Panelon 10-04 Anion gap [Moles/Vol] 10.2 mmol/L Normal 6.0-15.0 Th e [facility] Comment on above: Performed By: #### C EVAN NEWTON, PT ####[facility] [id number] [place] [address] [facility] Calcium [Mass/Vol] 9.4 mg/dL Normal 8.6-10.3 [facility] Comment on above: Performed By: #### C EVAN NEWTON, PT ####[place] [id number] [address] Chloride [Moles/Vol] 102 mmol/L Normal 98-107 [facility] Comment on above: Performed By: #### C EVAN NEWTON, PT ####[address] CO2 [Moles/Vol] 28.8 mmol/L Normal 21.0-31.0 [facility] Comment on above: Performed By: #### C EVAN NEWTON, PT ####[place] [id number] [facility] Creatinine [Mass/Vol] 0.80 mg/dL Normal 0.70-1.30 [facility] Comment on above: Performed By: #### C EVAN NEWTON, PT ####[place] [address] [place] Creatinine Clr Calc Pharmacy 100.39 Normal [facility] Comment on above: Result Comment: PERF ORMED BY: [facility] [address] [place] [address] PATHOLOGIST COMPOUNDING ASSISTANT ION THOMPSON M.D. Performed By: #### C EVAN NEWTON, PT ####[address] GFR/1.73 sq M.predicted MDRD (S/P/Bld) [Vol rate/Area] mL/min/{1.73_m2} Normal [facility] Comment on above: Performed By: #### C EVAN NEWTON, PT ####[place] [id number] [facility] Glucose [Mass/Vol] 104 mg/dL High 70-100 [facility] Comment on above: Result Comment: [place] om Glucose Reference Range is dependent on time and content of last meal. Glucose of more than 200 mg/dL in a nonstressed, ambulatory subject supports the diagnosis of Diabetes Mellitus. ADA recommended reference range Performed By: #### C EVAN NEWTON, PT ####[place] [id number] [facility] Potassium [Moles/Vol] 4.0 mmol/L Normal 3.5-5.1 [facility] Comment on above: Performed By: #### C EVAN NEWTON, PT ####[address] Sodium [Moles/Vol] 137 mmol/L Normal 136-145 [facility] Comment on above: Performed By: #### C EVAN NEWTON, PT ####[address] Urea nitrogen [Mass/Vol] 18 mg/dL Normal 7-25 [facility] Comment on above: Performed By: #### C EVAN NEWTON, PT ####[address] Complete Blood Count Auto Di ffon 10-24-2023 Basophils (Bld) [#/Vol] 0.1 10*3/uL Normal 0.0-0.2 [facility] Comment on above: Result Comment: PERF ORMED BY: [facility] [address] [facility] [place] [address] PATHOLOGIST COMPOUNDING ASSISTANT ION THOMPSON M.D. Performed By: #### C EVAN NEWTON, PT ####[address] Basophils/100 WBC (Bld) 0.6 % Normal . [facility] Comment on above: Performed By: #### C EVAN NEWTON, PT ####[address] Eosinophils (Bld) [#/Vol] 0.4 10*3/uL Normal 0.0-0.45 [facility] Comment on above: Performed By: #### C EVAN NEWTON, PT ####[address] Eosinophils/100 WBC (Bld) 3.9 % Normal . [facility] Comment on above: Performed By: #### C EVAN NEWTON, PT ####[address] Erythrocyte distribution width (RBC) [Ratio] 12.3 % Normal 12.0-14.8 [facility] Comment on above: Performed By: #### C EVAN NEWTON, PT ####[address] Hematocrit (Bld) [Volume fraction] 40.6 % Normal 38.8-50.0 [facility] Comment on above: Performed By: #### C EVAN NEWTON, PT ####[address] Hemoglobin (Bld) [Mass/Vol] 14.0 g/dL Normal 13.0-17.0 [facility] Comment on above: Performed By: #### C EVAN NEWTON, PT ####[address] Lymphocytes (Bld) [#/Vol] 2.2 10*3/uL Normal 1.00-4.8 [facility] Comment on above: Performed By: #### C EVAN NEWTON, PT ####[address] Lymphocytes/100 WBC (Bld) 22.2 % Normal . [facility] Comment on above: Performed By: #### C EVAN NEWTON, PT ####[address] MCH (RBC) [Entitic mass] 31.2 pg Normal 27.5-35.2 [facility] Comment on above: Performed By: #### C EVAN NEWTON, PT ####[address] MCV (RBC) [Entitic vol] 90.3 fL Normal 83.5-101 [facility] Comment on above: Performed By: #### C EVAN NEWTON, PT ####[address] Mean Corpuscular HGB Conc 34.5 g/dL Normal 32.5-35.6 [facility] Comment on above: Performed By: #### C EVAN NEWTON, PT ####[address] Monocytes (Bld) [#/Vol] 1.1 10*3/uL High 0.0-0.8 [facility] Comment on above: Performed By: #### C EVAN NEWTON, PT ####[address] Monocytes/100 WBC (Bld) 11.6 % Normal . [facility] Comment on above: Performed By: #### C EVAN NEWTON, PT ####[address] Neutrophils (Bld) [#/Vol] 6.0 10*3/uL Normal 1.8-7.7 [facility] Comment on above: Performed By: #### C EVAN NEWTON, PT ####[address] Neutrophils/100 WBC (Bld) 61.7 % Normal . [facility] Comment on above: Performed By: #### C EVAN NEWTON, PT ####[address] NRBC% 0.1 /100{WBC} Normal 0-0.5 [facility] Comment on above: Performed By: #### C EVAN NEWTON, PT ####[address] Platelet mean volume (Bld) [Entitic vol] 8.1 fL Normal 6.6-10.1 [facility] Comment on above: Performed By: #### C EVAN NEWTON, PT ####[address] Platelets (Bld) [#/Vol] 213 10*3/uL Normal 150-450 [facility] Comment on above: Performed By: #### C EVAN NEWTON, PT ####[address] RBC (Bld) [#/Vol] 4.49 10*6/uL Normal 3.90-5.60 [facility] Comment on above: Performed By: #### EVAN WALLS, PT ####[facility] [place] [id number] [facility] WBC (Bld) [#/Vol] 9.8 10*3/uL Normal 4.1-10.5 [facility] Comment on above: Performed By: #### C AMAN, EVAN, PT ####[facility] [place] [id number] [facility] ECG 12 lead ECGon 10-24-2023 ECG 12 lead ECG [facility] Main [place] [id number] Electrocardiograph Report Signed Patient: Vick Mercado MR#: [id number] : 1955 Acct:[id number] Age/Sex: 68 / M ADM Date: 10/21/23 Loc: Room: [address] [place] [address] Type: DIS IN Attending Dr: Bon Harman DO Ordering Provider: John Pena MD Date of Service: 10/24/23 ECG/ECG 12 lead ECG: [facility] check before DC Copies to: Test Reason : Blood Pressure : / mmHG Vent. Rate : 076 BPM Atrial Rate : 076 BPM P-R Int : 198 ms QRS Dur : 096 ms QT Int : 414 ms P-R-T Axes : 045 -17 097 degrees QTc Int : 465 ms Normal sinus rhythm Nonspecific T wave abnormality Prolonged QT Abnormal ECG When compared with ECG of 24-OCT-2023 10:37, Nonspecific T wave abnormality, worse in Lateral leads Confirmed by JOHN PENA MD ([id number]) on 10/25/2023 3:09:25 PM Referred By: Electronically Signed By:JOHN PENA MD Transcribed By: MUS Signed By John Pena MD 0 10/25/23 1509 Normal [facility] ECG 12 lead ECG [place] [id number] Electrocardiograph Report Signed Patient: Vick Mercado MR#: [id number] : 1955 Acct:[id number] Age/Sex: 68 / M ADM Date: 10/21/23 Loc: Room: [address] [place] [address] Type: ADM IN Attending Dr: Bon Harman DO Ordering Provider: John Pena MD Date of Service: 10/24/23 ECG/ECG 12 lead ECG: Pre-cardioversion rhythm assessment Copies to: Test Reason : Blood Pressure : / mmHG Vent. Rate : 083 BPM Atrial Rate : 083 BPM P-R Int : 214 ms QRS Dur : 094 ms QT Int : 388 ms P-R-T Axes : 050 024 052 degrees QTc Int : 455 ms Sinus rhythm with 1st degree AV block Otherwise normal ECG When compared with ECG of 24-OCT-2023 07:14, (Unconfirmed) Sinus rhythm has replaced Atrial fibrillation Nonspecific T wave abnormality, improved in Lateral leads Confirmed by JOHN PENA MD ([facility]) on 10/24/2023 12:19:53 PM Referred By: BECKY Electronically Signed By:JOHN PENA MD Transcribed By: MUS Signed By John Pena MD 0 10/24/23 1219 Normal [facility] ECG 12 lead ECG [facility] [place] [address] Electrocardiograph Report Signed Patient: Vick Mercado MR#: [id number] : 1955 Acct:[id number] Age/Sex: 68 / M ADM Date: 10/21/23 Loc: Room: [address] [place] [address] Type: ADM IN Attending Dr: Bon Harman DO Ordering Provider: John Pena MD Date of Service: 10/24/23 ECG/ECG 12 lead ECG: Pre-cardioversion rhythm assessment Copies to: Test Reason : Blood Pressure : / mmHG Vent. Rate : 087 BPM Atrial Rate : 078 BPM P-R Int : 000 ms QRS Dur : 096 ms QT Int : 398 ms P-R-T Axes : 000 -25 082 degrees QTc Int : 478 ms Atrial fibrillation Nonspecific T wave abnormality Prolonged QT Abnormal ECG When compared with ECG of 23-OCT-2023 07:35, Nonspecific T wave abnormality no longer evident in Inferior leads Confirmed by JOHN PENA MD ([id number]) on 10/24/2023 12:19:47 PM Referred By: Electronically Signed By:JOHN PENA MD Transcribed By: HEATHER Signed By John Pena MD 0 10/24/23 1219 Normal [facility] ECG post procedureon 024 ECG post procedure [facility] [place] [address] Electrocardiograph Report Signed Patient: Vick Mercado MR#: [id number] : 1955 Acct:[id number] Age/Sex: 68 / M ADM Date: 10/21/23 Loc: Room: [address] [place] [address] Type: DIS IN Attending Dr: Bon Harman DO Ordering Provider: John Pena MD Date of Service: 10/24/23/ ECG/ECG post procedure: post cardioversion Copies to: Test Reason : Blood Pressure : / mmHG Vent. Rate : 083 BPM Atrial Rate : 083 BPM P-R Int : 214 ms QRS Dur : 094 ms QT Int : 388 ms P-R-T Axes : 050 024 052 degrees QTc Int : 455 ms Sinus rhythm with 1st degree AV block Otherwise normal ECG When compared with ECG of 24-OCT-2023 07:14, (Unconfirmed) Sinus rhythm has replaced Atrial fibrillation Nonspecific T wave abnormality, improved in Lateral leads Confirmed by JOHN PENA MD ([id number]) on 10/24/2023 12:19:53 PM Referred By: BECKY Electronically Signed By:JOHN PENA MD REVISED DOCUMENT/10/25/2023/erika (corrected order number) Transcribed By: HEATHER Signed By John Pena MD 0 10/25/23 1313 Normal [facility] Prothrombin Time INRon 10-24 INR Coag (PPP) [Relative time] 2.2 {INR} Normal [facility] Comment on above: Result Comment: INR Therapeutic Range A) Pre- and Peroperative OAT started two weeks before surgery. NOT HIP SURGERY: 1.5 - 2.5 HIP SURGERY: 2 - 3 B) Primary and secondary prevention of venous THROMBOSIS: 2 - 3 C) Active venous thrombosis, pulmonary embolism and prevention of recurrent venous thrombosis: 2 - 3 D) Prevention of arterial thromboembolism including patients with mechanical heart valves: 3 - 4.5 PERFORMED BY: [facility] [address] [place] [id number] PATHOLOGIST COMPOUNDING ASSISTANT ION THOMPSON M.D. Performed By: #### C BC, BMP, PT ####[place] [id number] [place] [address] [facility] PT Coag (PPP) [Time] 25.3 s High 9.0-12.9 [facility] Comment on above: Result Comment: A he matocrit value greater than 55% may lead to inaccurate results in coagulation testing. Patients having hematocrit values >55% require a special collection tube for coagulation studies. Please contact the laboratory at [phone] for redraw instructions. Performed By: #### C BC, BMP, PT ####[place] [id number] [place] [address] [facility] Basic Metabolic Panelon 10-04 Anion gap [Moles/Vol] 10.1 mmol/L Normal 6.0-15.0 Th e [facility] Comment on above: Performed By: #### B MP, PT, CBC ####[address] [address] [facility] Calcium [Mass/Vol] 9.2 mg/dL Normal 8.6-10.3 [facility] Comment on above: Performed By: #### B MP, PT, CBC ####[address] [address] [place] Chloride [Moles/Vol] 103 mmol/L Normal 98-107 [facility] Comment on above: Performed By: #### B MP, PT, CBC ####[address] [address] [facility] CO2 [Moles/Vol] 26.2 mmol/L Normal 21.0-31.0 [facility] Comment on above: Performed By: #### B MP, PT, CBC ####[place] [id number] [facility] Creatinine [Mass/Vol] 0.76 mg/dL Normal 0.70-1.30 [facility] Comment on above: Performed By: #### B MP, PT, CBC ####[place] [id number] [place] Creatinine Clr Calc Pharmacy 101.72 Normal [facility] Comment on above: Result Comment: PERF ORMED BY: [facility] [address] [place] [address] PATHOLOGIST COMPOUNDING ASSISTANT ION THOMPSON M.D. Performed By: #### B MP, PT, CBC ####[address] GFR/1.73 sq M.predicted MDRD (S/P/Bld) [Vol rate/Area] mL/min/{1.73_m2} Normal [facility] Comment on above: Performed By: #### B MP, PT, CBC ####[place] [id number] [facility] Glucose [Mass/Vol] 105 mg/dL High 70-100 [facility] Comment on above: Result Comment: [facility] Glucose Reference Range is dependent on time and content of last meal. Glucose of more than 200 mg/dL in a nonstressed, ambulatory subject supports the diagnosis of Diabetes Mellitus. ADA recommended reference range Performed By: #### B MP, PT, CBC ####[place] [id number] [facility] Potassium [Moles/Vol] 4.3 mmol/L Normal 3.5-5.1 [facility] Comment on above: Performed By: #### B MP, PT, CBC ####[place] [id number] [facility] Sodium [Moles/Vol] 135 mmol/L Low 136-145 [facility] Comment on above: Performed By: #### B MP, PT, CBC ####[address] [place] [address] [place] Urea nitrogen [Mass/Vol] 16 mg/dL Normal 7-25 [facility] Comment on above: Performed By: #### B MP, PT, CBC ####[address] Complete Blood Count Auto Di ffon 10-23-2023 Basophils (Bld) [#/Vol] 0.0 10*3/uL Normal 0.0-0.2 [facility] Comment on above: Result Comment: PERF ORMED BY: [facility] [address] [place] [address] PATHOLOGIST COMPOUNDING ASSISTANT ION THOMPSON M.D. Performed By: #### B MP, PT, CBC ####[address] Basophils/100 WBC (Bld) 0.4 % Normal . [facility] Comment on above: Performed By: #### B MP, PT, CBC ####[address] Eosinophils (Bld) [#/Vol] 0.4 10*3/uL Normal 0.0-0.45 [facility] Comment on above: Performed By: #### B MP, PT, CBC ####[address] Eosinophils/100 WBC (Bld) 2.9 % Normal . [facility] Comment on above: Performed By: #### B MP, PT, CBC ####[address] Erythrocyte distribution width (RBC) [Ratio] 12.6 % Normal 12.0-14.8 [facility] Comment on above: Performed By: #### B MP, PT, CBC ####[address] Hematocrit (Bld) [Volume fraction] 39.5 % Normal 38.8-50.0 [facility] Comment on above: Performed By: #### B MP, PT, CBC ####[address] Hemoglobin (Bld) [Mass/Vol] 13.5 g/dL Normal 13.0-17.0 [facility] Comment on above: Performed By: #### B MP, PT, CBC ####[address] Lymphocytes (Bld) [#/Vol] 2.4 10*3/uL Normal 1.00-4.8 [facility] Comment on above: Performed By: #### B MP, PT, CBC ####[address] Lymphocytes/100 WBC (Bld) 19.5 % Normal . [facility] Comment on above: Performed By: #### B MP, PT, CBC ####[address] MCH (RBC) [Entitic mass] 31.0 pg Normal 27.5-35.2 [facility] Comment on above: Performed By: #### B MP, PT, CBC ####[address] MCV (RBC) [Entitic vol] 91.0 fL Normal 83.5-101 [facility] Comment on above: Performed By: #### B MP, PT, CBC ####[address] Mean Corpuscular HGB Conc 34.1 g/dL Normal 32.5-35.6 [facility] Comment on above: Performed By: #### B MP, PT, CBC ####[address] Monocytes (Bld) [#/Vol] 1.3 10*3/uL High 0.0-0.8 [facility] Comment on above: Performed By: #### B MP, PT, CBC ####[address] Monocytes/100 WBC (Bld) 10.6 % Normal . [facility] Comment on above: Performed By: #### B MP, PT, CBC ####[address] Neutrophils (Bld) [#/Vol] 8.1 10*3/uL High 1.8-7.7 [facility] Comment on above: Performed By: #### B MP, PT, CBC ####[address] Neutrophils/100 WBC (Bld) 66.6 % Normal . [facility] Comment on above: Performed By: #### B MP, PT, CBC ####[address] NRBC% 0.1 /100{WBC} Normal 0-0.5 [facility] Comment on above: Performed By: #### B MP, PT, CBC ####[address] Platelet mean volume (Bld) [Entitic vol] 8.2 fL Normal 6.6-10.1 [facility] Comment on above: Performed By: #### B MP, PT, CBC ####[address] Platelets (Bld) [#/Vol] 217 10*3/uL Normal 150-450 [facility] Comment on above: Performed By: #### B MP, PT, CBC ####[address] RBC (Bld) [#/Vol] 4.34 10*6/uL Normal 3.90-5.60 [facility] Comment on above: Performed By: #### B MP, PT, CBC ####[address] WBC (Bld) [#/Vol] 12.1 10*3/uL High 4.1-10.5 [facility] Comment on above: Performed By: #### B MP, PT, CBC ####[address] ECG 12 lead ECGon 10-23-2023 ECG 12 lead ECG [facility] Main [place] [address] [place] [address] Electrocardiograph Report Signed Patient: Vick Mercado MR#: [id number] : 1955 Acct:[id number] Age/Sex: 68 / M ADM Date: 10/21/23 Loc: Room: [address] [place] [address] Type: ADM IN Attending Dr: Bon Harman DO Ordering Provider: Bon Harman DO Date of Service: 10/23/23 ECG/ECG 12 lead ECG: Follow up A-Fib with RVR Copies to: Test Reason : Blood Pressure : / mmHG Vent. Rate : 084 BPM Atrial Rate : 098 BPM P-R Int : 000 ms QRS Dur : 096 ms QT Int : 396 ms P-R-T Axes : 000 -07 195 degrees QTc Int : 467 ms Atrial fibrillation Nonspecific T wave abnormality Abnormal ECG When compared with ECG of 22-OCT-2023 07:50, Nonspecific T wave abnormality, worse in Inferior leads Confirmed by BECKY MATA, JOHN ([id number]), editor newspaper Matthew Lei ([id number]) on 10/24/2023 8:19:52 AM Referred By: Electronically Signed By:JOHN PENA MD Transcribed By: MUS Signed By John Pena MD 0 10/24/23 0819 Normal [facility] Electrolyteson 10-23-2023 Anion gap [Moles/Vol] 11.8 mmol/L Normal 6.0-15.0 [facility] Comment on above: Result Comment: PERF ORMED BY: [facility] [address] [facility] [place] [address] PATHOLOGIST COMPOUNDING ASSISTANT ION THOMPSON M.D. Performed By: #### L YTES ####[facility] [place] [address] [facility] Chloride [Moles/Vol] 100 mmol/L Normal 98-107 [facility] Comment on above: Performed By: #### L YTES ####[place] [id number] [place] [address] [facility] CO2 [Moles/Vol] 28.3 mmol/L Normal 21.0-31.0 [facility] Comment on above: Performed By: #### L YTMARIANN ####[place] [id number] [facility] Potassium [Moles/Vol] 4.1 mmol/L Normal 3.5-5.1 [facility] Comment on above: Performed By: #### L YTES ####[place] [id number] [facility] Sodium [Moles/Vol] 136 mmol/L Normal 136-145 [facility] Comment on above: Performed By: #### L YTMARIANN ####[place] [id number] [facility] Prothrombin Time INRon 10-23 INR Coag (PPP) [Relative time] 2.5 {INR} Normal [facility] Comment on above: Result Comment: INR Therapeutic Range A) Pre- and Peroperative OAT started two weeks before surgery. NOT HIP SURGERY: 1.5 - 2.5 HIP SURGERY: 2 - 3 B) Primary and secondary prevention of venous THROMBOSIS: 2 - 3 C) Active venous thrombosis, pulmonary embolism and prevention of recurrent venous thrombosis: 2 - 3 D) Prevention of arterial thromboembolism including patients with mechanical heart valves: 3 - 4.5 PERFORMED BY: [place] [id number] PATHOLOGIST COMPOUNDING ASSISTANT ION THOMPSON M.D. Performed By: #### B MP, PT, CBC ####[place] [id number] [facility] PT Coag (PPP) [Time] 28.1 s High 9.0-12.9 [facility] Comment on above: Result Comment: A he matocrit value greater than 55% may lead to inaccurate results in coagulation testing. Patients having hematocrit values >55% require a special collection tube for coagulation studies. Please contact the laboratory at [phone] for redraw instructions. Performed By: #### B MP, PT, CBC ####[facility] [address] A1C with Estimated Average Mya campos 10-22-2023 Glucose [Mass/Vol] 137 mg/dL Normal [facility] Comment on above: Result Comment: PERF ORMED BY: [facility] [place] [address] PATHOLOGIST COMPOUNDING ASSISTANT ION THOMPSON M.D. Performed By: #### B MP, [id number], A1C WTH eA, PT, MG, CBC ####[address]#### VITB1 ####[facility] , HbA1c (Bld) [Mass fraction] 6.4 % High 4.3-5.6 [facility] Comment on above: Result Comment: Incr eased risk for diabetes: 5.7 - 6.4 diabetes: >6.4 glycemic control for adults with diabetes: <7.0 Performed By: #### B MP, [id number], A1C WTH eA, PT, MG, CBC ####[address]#### VITB1 ####[facility] , Basic Metabolic Panelon 10-04 Anion gap [Moles/Vol] 10.6 mmol/L Normal 6.0-15.0 [facility] Comment on above: Performed By: #### B MP, [id number], A1C WTH eA, PT, MG, CBC ####[address]#### VITB1 ####[facility] , Calcium [Mass/Vol] 9.1 mg/dL Normal 8.6-10.3 [facility] Comment on above: Performed By: #### B MP, [id number], A1C WTH eA, PT, MG, CBC ####[address]#### VITB1 ####[facility] , Chloride [Moles/Vol] 104 mmol/L Normal 98-107 [facility] Comment on above: Performed By: #### B MP, [id number], A1C WTH eA, PT, MG, CBC ####[address]#### VITB1 ####[facility] , CO2 [Moles/Vol] 24.6 mmol/L Normal 21.0-31.0 [facility] Comment on above: Performed By: #### B MP, [id number], A1C WTH eA, PT, MG, CBC ####[address]#### VITB1 ####[facility] , Creatinine [Mass/Vol] 0.84 mg/dL Normal 0.70-1.30 [facility] Comment on above: Performed By: #### B MP, [id number], A1C WTH eA, PT, MG, CBC ####[address]#### VITB1 ####[facility] , Creatinine Clr Calc Pharmacy 97.01 Normal [facility] Comment on above: Performed By: #### B MP, [id number], A1C WTH eA, PT, MG, CBC ####[place] [address] [place]#### VITB1 ####[facility] , GFR/1.73 sq M.predicted MDRD (S/P/Bld) [Vol rate/Area] mL/min/{1.73_m2} Normal [facility] Comment on above: Performed By: #### B MP, [id number], A1C WTH eA, PT, MG, CBC ####[place] [address] [place]#### VITB1 ####[facility] , Glucose [Mass/Vol] 129 mg/dL High 70-100 [facility] Comment on above: Result Comment: [facility] Glucose Reference Range is dependent on time and content of last meal. Glucose of more than 200 mg/dL in a nonstressed, ambulatory subject supports the diagnosis of Diabetes Mellitus. ADA recommended reference range Performed By: #### B MP, [id number], A1C WTH eA, PT, MG, CBC ####[address]#### VITB1 ####[facility] , Potassium [Moles/Vol] 4.2 mmol/L Normal 3.5-5.1 [facility] Comment on above: Performed By: #### B MP, [id number], A1C WTH eA, PT, MG, CBC ####[address]#### VITB1 ####[facility] , Sodium [Moles/Vol] 135 mmol/L Low 136-145 [facility] Comment on above: Performed By: #### B MP, [id number], A1C WTH eA, PT, MG, CBC ####[address]#### VITB1 ####[facility] , Urea nitrogen [Mass/Vol] 20 mg/dL Normal 7-25 [facility] Comment on above: Performed By: #### B MP, [id number], A1C WTH eA, PT, MG, CBC ####[address]#### VITB1 ####[facility] , Complete Blood Count Auto Di ffon 10-22-2023 Basophils (Bld) [#/Vol] 0.1 10*3/uL Normal 0.0-0.2 [facility] Comment on above: Result Comment: PERF ORMED BY: [address] [place] [address] PATHOLOGIST COMPOUNDING ASSISTANT ION THOMPSON M.D. Performed By: #### B MP, [id number], A1C WTH eA, PT, MG, CBC ####[address]#### VITB1 ####[facility] , Basophils/100 WBC (Bld) 0.6 % Normal . [facility] Comment on above: Performed By: #### B MP, [id number], A1C WTH eA, PT, MG, CBC ####[address]#### VITB1 ####[facility] , Eosinophils (Bld) [#/Vol] 0.3 10*3/uL Normal 0.0-0.45 [facility] Comment on above: Performed By: #### B MP, [id number], A1C WTH eA, PT, MG, CBC ####[address]#### VITB1 ####[facility] , Eosinophils/100 WBC (Bld) 2.1 % Normal . [facility] Comment on above: Performed By: #### B MP, [id number], A1C WTH eA, PT, MG, CBC ####[address]#### VITB1 ####[facility] , Erythrocyte distribution width (RBC) [Ratio] 12.5 % Normal 12.0-14.8 [facility] Comment on above: Performed By: #### B MP, [id number], A1C WTH eA, PT, MG, CBC ####[place] [address] [place]#### VITB1 ####[facility] , Hematocrit (Bld) [Volume fraction] 38.9 % Normal 38.8-50.0 [facility] Comment on above: Performed By: #### B MP, [id number], A1C WTH eA, PT, MG, CBC ####[address]#### VITB1 ####[facility] , Hemoglobin (Bld) [Mass/Vol] 13.1 g/dL Normal 13.0-17.0 [facility] Comment on above: Performed By: #### B MP, [id number], A1C WTH eA, PT, MG, CBC ####[address]#### VITB1 ####[facility] , Lymphocytes (Bld) [#/Vol] 1.9 10*3/uL Normal 1.00-4.8 [facility] Comment on above: Performed By: #### B MP, [id number], A1C WTH eA, PT, MG, CBC ####[address]#### VITB1 ####[facility] , Lymphocytes/100 WBC (Bld) 15.1 % Normal . [facility] Comment on above: Performed By: #### B MP, [id number], A1C WTH eA, PT, MG, CBC ####[address]#### VITB1 ####[facility] , MCH (RBC) [Entitic mass] 30.6 pg Normal 27.5-35.2 [facility] Comment on above: Performed By: #### B MP, [id number], A1C WTH eA, PT, MG, CBC ####[place] [address] [place]#### VITB1 ####[facility] , MCV (RBC) [Entitic vol] 90.7 fL Normal 83.5-101 [facility] Comment on above: Performed By: #### B MP, [id number], A1C WTH eA, PT, MG, CBC ####[address]#### VITB1 ####[facility] , Mean Corpuscular HGB Conc 33.7 g/dL Normal 32.5-35.6 [facility] Comment on above: Performed By: #### B MP, [id number], A1C WTH eA, PT, MG, CBC ####[address]#### VITB1 ####[facility] , Monocytes (Bld) [#/Vol] 1.2 10*3/uL High 0.0-0.8 [facility] Comment on above: Performed By: #### B MP, [id number], A1C WTH eA, PT, MG, CBC ####[address]#### VITB1 ####[facility] , Monocytes/100 WBC (Bld) 9.8 % Normal . [facility] Comment on above: Performed By: #### B MP, [id number], A1C WTH eA, PT, MG, CBC ####[address]#### VITB1 ####[facility] , Neutrophils (Bld) [#/Vol] 8.9 10*3/uL High 1.8-7.7 [facility] Comment on above: Performed By: #### B MP, [id number], A1C WTH eA, PT, MG, CBC ####[address]#### VITB1 ####[facility] , Neutrophils/100 WBC (Bld) 72.4 % Normal . [facility] Comment on above: Performed By: #### B MP, [id number], A1C WTH eA, PT, MG, CBC ####[place] [address] [place]#### VITB1 ####[facility] , NRBC% 0.0 /100{WBC} Normal 0-0.5 [facility] Comment on above: Performed By: #### B MP, [id number], A1C WTH eA, PT, MG, CBC ####[address]#### VITB1 ####[facility] , Platelet mean volume (Bld) [Entitic vol] 7.9 fL Normal 6.6-10.1 [facility] Comment on above: Performed By: #### B MP, [id number], A1C WTH eA, PT, MG, CBC ####[address]#### VITB1 ####[facility] , Platelets (Bld) [#/Vol] 217 10*3/uL Normal 150-450 [facility] Comment on above: Performed By: #### B MP, [id number], A1C WTH eA, PT, MG, CBC ####[address]#### VITB1 ####[facility] , RBC (Bld) [#/Vol] 4.28 10*6/uL Normal 3.90-5.60 [facility] Comment on above: Performed By: #### B MP, [id number], A1C WTH eA, PT, MG, CBC ####[address]#### VITB1 ####[facility] , WBC (Bld) [#/Vol] 12.3 10*3/uL High 4.1-10.5 [facility] Comment on above: Performed By: #### B MP, [id number], A1C WTH eA, PT, MG, CBC ####[place] [address] [place]#### VITB1 ####[facility] , ECG 12 lead ECGon 10-22-2023 ECG 12 lead ECG [facility] Main [place] [id number] Electrocardiograph Report Signed Patient: Vick Mercado MR#: [id number] : 1955 Acct:[id number] Age/Sex: 68 / M ADM Date: 10/21/23 Loc: 3T Room: [address] [place] [address] Type: ADM IN Attending Dr: Bon Harman DO Ordering Provider: Bon Harman DO Date of Service: 10/22/23 ECG/ECG 12 lead ECG: Follow up A-Fib with RVR Copies to: Test Reason : Blood Pressure : / mmHG Vent. Rate : 084 BPM Atrial Rate : 090 BPM P-R Int : 000 ms QRS Dur : 110 ms QT Int : 422 ms P-R-T Axes : 000 -22 062 degrees QTc Int : 498 ms Atrial fibrillation T wave abnormality, consider lateral ischemia Abnormal ECG When compared with ECG of 21-OCT-2023 14:35, Vent. rate has decreased BY 47 BPM T wave inversion now evident in Anterior leads Confirmed by JOHN PENA MD ([facility]) on 10/22/2023 2:40:02 PM Referred By: Electronically Signed By:JOHN PENA MD Transcribed By: MUS Signed By John Pena MD 0 10/22/23 1440 Normal [facility] echo transthoracicon E[facility] echo transthoracic [facility] Main [address] [address] Echocardiogram Signed Patient: Vick Mercado MR#: [id number] : 1955 Acct:[id number] Age/Sex: 68 / M ADM Date: 10/21/23 Loc: 3T Room: [address] [place] [address] Type: ADM IN Attending Dr: Bon Harman DO Ordering Provider: Bon Harman DO Date of Service: 01/ [facility] echo transthoracic: A-Fib with RVR, weight gain, dyspnea Copies to: DO John Coates MD Ordering Physician: Bon Harman Height: 70 in Weight: 214 lb Performed By: PAIGE Dean BSA: 2.1 m2 BP: 134/89 mmHg HR: 96 Reason For Study: A-Fib with RVR, weight gain, dyspnea History: Non-Ischemic Cardiomyopathy, CHF, JANETTE, Hepatitis C, HLD, A-Fib., HTN, Alcohol Use, Family History: Father - heart valve replaced Interpretation Summary The left ventricular wall motion is normal. Mild concentric left ventricular hypertrophy. Ejection Fraction = 30-35%. The LV ejection fraction is moderately to severly decreased . There is mild mitral regurgitation. There is mild tricuspid regurgitation. The right ventricular systolic pressure is 60-65 mmHg. Right ventricular systolic pressure is consistent with severe pulmonary hypertension. The inferior vena cava is moderately dilated with a decrease in inspiratory collapse The patient was in atrial fibrillation through out the study. Compared to prior study, changes are noted. LV systolic function has worsened. And the pulmonary pressure is higher. Procedure/Quality: A two-dimensional transthoracic echocardiogram with color flow, Doppler and injection of contrast agent Definity was performed. A two- dimensional transthoracic echocardiogram with color flow and Doppler was performed. The study was technically good in quality. Left Ventricle: The left ventricular size is normal. Mild concentric left ventricular hypertrophy. Ejection Fraction = 30-35%. The LV ejection fraction is moderately to severly decreased . The left ventricular wall motion is normal. Left Atrium: The left atrium appears normal in size. Right Atrium: The right atrium appears normal in size. Right Ventricle: The right ventricular size, thickness and function are normal. Aortic Valve: The aortic valve is normal in structure and function. No aortic regurgitation is present. Mitral Valve: The mitral valve is normal in structure and function. There is mild mitral regurgitation. Tricuspid Valve: The tricuspid valve is normal in structure and function. There is mild tricuspid regurgitation. The right ventricular systolic pressure is 60-65 mmHg. Right ventricular systolic pressure is consistent with severe pulmonary hypertension. Pulmonic Valve: The pulmonic valve is normal in structure and function. Arteries: The aortic root is normal size. Pericardium/Pleura: No pericardial effusion seen. There is no pleural effusion. IVC/Hepatic Veins: The inferior vena cava is moderately dilated with a decrease in inspiratory collapse. Miscellaneous: The patient was in atrial fibrillation through out the study. Measurements with Normals IVSd: 1.2 cm (0.7-1.1 cm)LVIDd: 5.4 cm (3.7-5.4 cm) LVPWd: 1.1 cm (0.7-1.1 cm)LVIDs: 4.5 cm (2.3-3.6 cm) LA dimension: 3.9 cm (2.3-4.0 cm)Ao root diam: 3.5 cm(2.0-3.6 cm) asc Aorta Diam: 3.2 cm(2.1-3.4cm) Doppler with Normals RVSP(TR): 69.2 mmHg (18-35mmHg) LV V1 max: 88.7 cm/sec (0.7-1.7m/s)MV E max lucius: 105.0 cm/sec(0.8-1.3m/s) MV A max lucius: 51.4 cm/sec(0.0-0.0m/s) MV E/A: 2.0 (<1.5) MMode/2D Measurements Calculations RVDd: 2.5 cm FS: 16.2 % Ao root area: LVOT diam: 2.2 cm TAPSE: 2.0 cm EDV(Teich): 142.7 ml 9.7 cm2 LVOT area: 3.9 cm2 RV S Lucius: ESV(Teich): 94.6 ml 17.4 cm/sec EF(Teich): 33.7 % __ LVLd ap4: 9.6 cm SV(MOD-sp4): 78.0 ml LAV(MOD-sp4): LA A2 area: 18.0 cm2 EDV(MOD-sp4): 51.8 ml 241.0 ml LAV(MOD-sp2): LA A4 area: 19.7 cm2 LVLs ap4: 8.3 cm 54.4 ml LA length (vol): ESV(MOD-sp4): 6.0 cm 163.0 ml LA vol: 50.0 ml EF(MOD-sp4): LA vol index: 32.4 % 23.3 ml/m2 __ RA Volume: 47.7 ml RA Volume Index: 22.2 ml/m2 Doppler Measurements Calculations MV dec time: MV max PG: E/E' lat: 8.0 MV dec slope: 0.26 sec 66.0 mmHg E/E' med: 13.2 410.5 cm/sec2 __ Ao V2 max: LV V1 max PG: MR max lucius: TV max P.0 mmHg 154.4 cm/sec 3.1 mmHg 405.1 cm/sec Ao max P.5 mmHgLV V1 mean PG: MR max PG: Ao mean P.7 mmHg 65.9 mmHg 6.5 mmHg LV V1 mean: Ao V2 mean: 62.6 cm/sec 124.6 cm/sec LV V1 VTI: 18.3 cm Ao V2 VTI: 28.0 cm SILVESTRE(I,D): 2.6 cm2 SILVESTRE(V,D): 2.3 cm2 __ TR max lucius: 384.8 cm/sec TR max P.2 mmHg RAP systole: 10.0 mmHg Transcribed (more content not included)... Normal [facility] Magnesiumon 10-22-2023 Magnesium [Mass/Vol] 2.1 mg/dL Normal 1.9-2.7 [facility] Comment on above: Performed By: #### B MP, [id number], A1C WTH eA, PT, MG, CBC ####[facility] [id number] [place] [address] [facility]#### VITB1 ####[facility] , Prothrombin Time INRon 10-22 INR Coag (PPP) [Relative time] 2.6 {INR} Normal [facility] Comment on above: Result Comment: INR Therapeutic Range A) Pre- and Peroperative OAT started two weeks before surgery. NOT HIP SURGERY: 1.5 - 2.5 HIP SURGERY: 2 - 3 B) Primary and secondary prevention of venous THROMBOSIS: 2 - 3 C) Active venous thrombosis, pulmonary embolism and prevention of recurrent venous thrombosis: 2 - 3 D) Prevention of arterial thromboembolism including patients with mechanical heart valves: 3 - 4.5 PERFORMED BY: [address] [place] [address] PATHOLOGIST COMPOUNDING ASSISTANT ION THOMPSON M.D. Performed By: #### B MP, [id number], A1C WTH eA, PT, MG, CBC ####[address]#### VITB1 ####[facility] , PT Coag (PPP) [Time] 29.1 s High 9.0-12.9 [facility] Comment on above: Result Comment: A he matocrit value greater than 55% may lead to inaccurate results in coagulation testing. Patients having hematocrit values >55% require a special collection tube for coagulation studies. Please contact the laboratory at [phone] for redraw instructions. Performed By: #### B MP, [id number], A1C WTH eA, PT, MG, CBC ####[address]#### VITB1 ####[facility] , Vit. B12/Folate Profileon Cobalamin (Vitamin B12) [Mass/Vol] 436 pg/mL Normal 180-914 [facility] Comment on above: Performed By: #### B MP, [id number], A1C WTH eA, PT, MG, CBC ####[address]#### VITB1 ####[facility] , Folate 33.0 ng/mL Normal >5.9 [facility] Comment on above: Result Comment: Toya te reference range: >5.9 ng/ml The WHO technical consultation on folate and vitamin b12 deficiencies has determined that folate concentrations less than 4 ng/ml are considered deficient. PERFORMED BY: [place] [address] PATHOLOGIST COMPOUNDING ASSISTANT ION THOMPSON M.D. Performed By: #### B MP, [id number], A1C WTH eA, PT, MG, CBC ####[address]#### VITB1 ####[facility] , Vitamin B1 (Thiamine) Bloodo n 10-22-2023 Vitamin B1 (Thiamine) Blood 173.4 Normal 66.5-200.0 [facility] Comment on above: Result Comment: This test was developed and its performance characteristics determined by [employer]. It has not been cleared or approved by the Food and Drug Administration. Performed at: [address] [id number] Collar Folder Operator: Johnson Rene MD, Phone: [phone] PERFORMED BY: [place] [address] PATHOLOGIST COMPOUNDING ASSISTANT ION THOMPSON M.D. Performed By: #### B MP, [id number], A1C WTH eA, PT, MG, CBC ####[address]#### VITB1 ####[facility] , B-Type Natriuretic Peptideon 10-21-2023 Natriuretic peptide B (Bld) [Mass/Vol] 954.0 pg/mL High 5-100 [facility] Comment on above: Result Comment: PERF ORMED BY: [place] [address] PATHOLOGIST COMPOUNDING ASSISTANT ION THOMPSON M.D. Performed By: #### B BUSINESS INTELLIGENCE DIRECTOR, CMP, MG, HS TROP, PTT, PT, CK, CBC ####[address] Complete Blood Count Auto Di ffon 10-21-2023 Basophils (Bld) [#/Vol] 0.1 10*3/uL Normal 0.0-0.2 [facility] Comment on above: Result Comment: PERF ORMED BY: [address] [place] [address] PATHOLOGIST COMPOUNDING ASSISTANT ION THOMPSON M.D. Performed By: #### B BUSINESS INTELLIGENCE DIRECTOR, CMP, MG, HS TROP, PTT, PT, CK, CBC ####[address] Basophils/100 WBC (Bld) 0.9 % Normal . [facility] Comment on above: Performed By: #### B BUSINESS INTELLIGENCE DIRECTOR, CMP, MG, HS TROP, PTT, PT, CK, CBC ####[address] Eosinophils (Bld) [#/Vol] 0.3 10*3/uL Normal 0.0-0.45 [facility] Comment on above: Performed By: #### B BUSINESS INTELLIGENCE DIRECTOR, CMP, MG, HS TROP, PTT, PT, CK, CBC ####[address] Eosinophils/100 WBC (Bld) 1.9 % Normal . [facility] Comment on above: Performed By: #### B BUSINESS INTELLIGENCE DIRECTOR, CMP, MG, HS TROP, PTT, PT, CK, CBC ####[address] Erythrocyte distribution width (RBC) [Ratio] 12.5 % Normal 12.0-14.8 [facility] Comment on above: Performed By: #### B BUSINESS INTELLIGENCE DIRECTOR, CMP, MG, HS TROP, PTT, PT, CK, CBC ####[address] Hematocrit (Bld) [Volume fraction] 42.0 % Normal 38.8-50.0 [facility] Comment on above: Performed By: #### B BUSINESS INTELLIGENCE DIRECTOR, CMP, MG, HS TROP, PTT, PT, CK, CBC ####[address] Hemoglobin (Bld) [Mass/Vol] 14.4 g/dL Normal 13.0-17.0 [facility] Comment on above: Performed By: #### B BUSINESS INTELLIGENCE DIRECTOR, CMP, MG, HS TROP, PTT, PT, CK, CBC ####[address] Lymphocytes (Bld) [#/Vol] 2.5 10*3/uL Normal 1.00-4.8 [facility] Comment on above: Performed By: #### B BUSINESS INTELLIGENCE DIRECTOR, CMP, MG, HS TROP, PTT, PT, CK, CBC ####[address] Lymphocytes/100 WBC (Bld) 18.7 % Normal . [facility] Comment on above: Performed By: #### B BUSINESS INTELLIGENCE DIRECTOR, CMP, MG, HS TROP, PTT, PT, CK, CBC ####[address] MCH (RBC) [Entitic mass] 30.9 pg Normal 27.5-35.2 [facility] Comment on above: Performed By: #### B BUSINESS INTELLIGENCE DIRECTOR, CMP, MG, HS TROP, PTT, PT, CK, CBC ####[address] MCV (RBC) [Entitic vol] 90.4 fL Normal 83.5-101 [facility] Comment on above: Performed By: #### B BUSINESS INTELLIGENCE DIRECTOR, CMP, MG, HS TROP, PTT, PT, CK, CBC ####[address] Mean Corpuscular HGB Conc 34.2 g/dL Normal 32.5-35.6 [facility] Comment on above: Performed By: #### B BUSINESS INTELLIGENCE DIRECTOR, CMP, MG, HS TROP, PTT, PT, CK, CBC ####[address] Monocytes (Bld) [#/Vol] 1.3 10*3/uL High 0.0-0.8 [facility] Comment on above: Performed By: #### B BUSINESS INTELLIGENCE DIRECTOR, CMP, MG, HS TROP, PTT, PT, CK, CBC ####[address] Monocytes/100 WBC (Bld) 18.03 % Normal 0.00-20.00 [facility] Comment on above: Performed By: #### B BUSINESS INTELLIGENCE DIRECTOR, CMP, MG, HS TROP, PTT, PT, CK, CBC ####[address] Monocytes/100 WBC (Bld) 9.6 % Normal . [facility] Comment on above: Performed By: #### B BUSINESS INTELLIGENCE DIRECTOR, CMP, MG, HS TROP, PTT, PT, CK, CBC ####[address] Neutrophils (Bld) [#/Vol] 9.2 10*3/uL High 1.8-7.7 [facility] Comment on above: Performed By: #### B BUSINESS INTELLIGENCE DIRECTOR, CMP, MG, HS TROP, PTT, PT, CK, CBC ####[address] Neutrophils/100 WBC (Bld) 68.9 % Normal . [facility] Comment on above: Performed By: #### B BUSINESS INTELLIGENCE DIRECTOR, CMP, MG, HS TROP, PTT, PT, CK, CBC ####[address] NRBC% 0.1 /100{WBC} Normal 0-0.5 [facility] Comment on above: Performed By: #### B BUSINESS INTELLIGENCE DIRECTOR, CMP, MG, HS TROP, PTT, PT, CK, CBC ####[address] Platelet mean volume (Bld) [Entitic vol] 8.2 fL Normal 6.6-10.1 [facility] Comment on above: Performed By: #### B BUSINESS INTELLIGENCE DIRECTOR, CMP, MG, HS TROP, PTT, PT, CK, CBC ####[address] Platelets (Bld) [#/Vol] 252 10*3/uL Normal 150-450 [facility] Comment on above: Performed By: #### B BUSINESS INTELLIGENCE DIRECTOR, CMP, MG, HS TROP, PTT, PT, CK, CBC ####[address] RBC (Bld) [#/Vol] 4.65 10*6/uL Normal 3.90-5.60 [facility] Comment on above: Performed By: #### B BUSINESS INTELLIGENCE DIRECTOR, CMP, MG, HS TROP, PTT, PT, CK, CBC ####[address] WBC (Bld) [#/Vol] 13.4 10*3/uL High 4.1-10.5 [facility] Comment on above: Performed By: #### B BUSINESS INTELLIGENCE DIRECTOR, CMP, MG, HS TROP, PTT, PT, CK, CBC ####[address] Comprehensive Metabolic Pane kyrie 10-21-2023 Albumin [Mass/Vol] 4.6 g/dL Normal 3.5-5.7 [facility] Comment on above: Performed By: #### B BUSINESS INTELLIGENCE DIRECTOR, CMP, MG, HS TROP, PTT, PT, CK, CBC ####[address] Albumin/Globulin [Mass ratio] 1.4 {ratio} Normal [facility] Comment on above: Performed By: #### B BUSINESS INTELLIGENCE DIRECTOR, CMP, MG, HS TROP, PTT, PT, CK, CBC ####[address] ALP [Catalytic activity/Vol] 58 U/L Normal 34-104 [facility] Comment on above: Performed By: #### B BUSINESS INTELLIGENCE DIRECTOR, CMP, MG, HS TROP, PTT, PT, CK, CBC ####[address] ALT [Catalytic activity/Vol] 18 U/L Normal 7-52 [facility] Comment on above: Performed By: #### B BUSINESS INTELLIGENCE DIRECTOR, CMP, MG, HS TROP, PTT, PT, CK, CBC ####[address] Anion gap [Moles/Vol] 12.4 mmol/L Normal 6.0-15.0 [facility] Comment on above: Performed By: #### B BUSINESS INTELLIGENCE DIRECTOR, CMP, MG, HS TROP, PTT, PT, CK, CBC ####[address] AST [Catalytic activity/Vol] 22 U/L Normal 13-39 [facility] Comment on above: Performed By: #### B BUSINESS INTELLIGENCE DIRECTOR, CMP, MG, HS TROP, PTT, PT, CK, CBC ####[address] Bilirubin [Mass/Vol] 1.0 mg/dL Normal 0.3-1.0 [facility] Comment on above: Performed By: #### B BUSINESS INTELLIGENCE DIRECTOR, CMP, MG, HS TROP, PTT, PT, CK, CBC ####[address] Calcium [Mass/Vol] 9.8 mg/dL Normal 8.6-10.3 [facility] Comment on above: Performed By: #### B BUSINESS INTELLIGENCE DIRECTOR, CMP, MG, HS TROP, PTT, PT, CK, CBC ####[address] Chloride [Moles/Vol] 103 mmol/L Normal 98-107 [facility] Comment on above: Performed By: #### B BUSINESS INTELLIGENCE DIRECTOR, CMP, MG, HS TROP, PTT, PT, CK, CBC ####[address] CO2 [Moles/Vol] 25.8 mmol/L Normal 21.0-31.0 [facility] Comment on above: Performed By: #### B BUSINESS INTELLIGENCE DIRECTOR, CMP, MG, HS TROP, PTT, PT, CK, CBC ####[address] Creatinine [Mass/Vol] 0.91 mg/dL Normal 0.70-1.30 [facility] Comment on above: Performed By: #### B BUSINESS INTELLIGENCE DIRECTOR, CMP, MG, HS TROP, PTT, PT, CK, CBC ####[address] Creatinine Clr Calc Pharmacy 90.42 Normal [facility] Comment on above: Performed By: #### B BUSINESS INTELLIGENCE DIRECTOR, CMP, MG, HS TROP, PTT, PT, CK, CBC ####[address] GFR/1.73 sq M.predicted MDRD (S/P/Bld) [Vol rate/Area] mL/min/{1.73_m2} Normal [facility] Comment on above: Performed By: #### B BUSINESS INTELLIGENCE DIRECTOR, CMP, MG, HS TROP, PTT, PT, CK, CBC ####[address] Globulin (S) [Mass/Vol] 3.3 g/dL Normal [facility] Comment on above: Performed By: #### B BUSINESS INTELLIGENCE DIRECTOR, CMP, MG, HS TROP, PTT, PT, CK, CBC ####[address] Glucose [Mass/Vol] 116 mg/dL High 70-100 [facility] Comment on above: Result Comment: [facility] Glucose Reference Range is dependent on time and content of last meal. Glucose of more than 200 mg/dL in a nonstressed, ambulatory subject supports the diagnosis of Diabetes Mellitus. ADA recommended reference range Performed By: #### B BUSINESS INTELLIGENCE DIRECTOR, CMP, MG, HS TROP, PTT, PT, CK, CBC ####[address] Potassium [Moles/Vol] 4.2 mmol/L Normal 3.5-5.1 [facility] Comment on above: Performed By: #### B BUSINESS INTELLIGENCE DIRECTOR, CMP, MG, HS TROP, PTT, PT, CK, CBC ####[address] Protein [Mass/Vol] 7.9 g/dL Normal 6.4-8.9 [facility] Comment on above: Performed By: #### B BUSINESS INTELLIGENCE DIRECTOR, CMP, MG, HS TROP, PTT, PT, CK, CBC ####[address] Sodium [Moles/Vol] 137 mmol/L Normal 136-145 [facility] Comment on above: Performed By: #### B BUSINESS INTELLIGENCE DIRECTOR, CMP, MG, HS TROP, PTT, PT, CK, CBC ####[place] [id number] [address] Urea nitrogen [Mass/Vol] 17 mg/dL Normal 7-25 [facility] Comment on above: Performed By: #### B BUSINESS INTELLIGENCE DIRECTOR, CMP, MG, HS TROP, PTT, PT, CK, CBC ####[facility] [place] [id number] [facility] Creatine Kinaseon 10-21-2023 CK [Catalytic activity/Vol] 67 U/L Normal 30-223 [facility] Comment on above: Performed By: #### B BUSINESS INTELLIGENCE DIRECTOR, CMP, MG, HS TROP, PTT, PT, CK, CBC ####[place] [address] [place] [id number] [facility] ECG 12 lead ECGon 10-21-2023 ECG 12 lead ECG [facility] [place] [address] Electrocardiograph Report Signed Patient: Vick Mercado MR#: [id number] : 1955 Acct:[id number] Age/Sex: 68 / M ADM Date: 10/21/23 Loc: Room: [address] [place] [address] Type: ADM IN Attending Dr: Bon Harman DO Ordering Provider: Steven Aldridge MD Date of Service: 10/21/23 ECG/ECG 12 lead ECG: Shortness of Breath/Dyspnea Copies to: Test Reason : Blood Pressure : 172/101 mmHG Vent. Rate : 131 BPM Atrial Rate : 258 BPM P-R Int : 000 ms QRS Dur : 094 ms QT Int : 334 ms P-R-T Axes : 000 022 074 degrees QTc Int : 493 ms Atrial fibrillation with rapid ventricular response Nonspecific T wave abnormality Abnormal ECG When compared with ECG of 01-SEP-2023 08:31, No significant change was found Confirmed by STEVEN ALDRIDGE MD ([id number]) on 10/21/2023 7:30:18 PM Referred By: Electronically Signed By:STEVEN ALDRIDGE MD Transcribed By: MUS Signed By Steven Aldridge MD 10/21/23 1930 Normal [facility] Magnesiumon 10-21-2023 Magnesium [Mass/Vol] 2.3 mg/dL Normal 1.9-2.7 [facility] Comment on above: Result Comment: PERF ORMED BY: [facility] [address] [place] [id number] PATHOLOGIST COMPOUNDING ASSISTANT ION THOMPSON M.D. Performed By: #### B BUSINESS INTELLIGENCE DIRECTOR, CMP, MG, HS TROP, PTT, PT, CK, CBC ####[place] [address] [place] [address] [facility] Partial Thromboplastin Timeo n 10-21-2023 aPTT Coag (Bld) [Time] 45.0 s High 25.1-36.5 [facility] Comment on above: Result Comment: A he matocrit value greater than 55% may lead to inaccurate results in coagulation testing. Patients having hematocrit values >55% require a special collection tube for coagulation studies. Please contact the laboratory at [phone] for redraw instructions. PERFORMED BY: [facility] [address] [place] [id number] PATHOLOGIST COMPOUNDING ASSISTANT ION THOMPSON M.D. Performed By: #### B BUSINESS INTELLIGENCE DIRECTOR, CMP, MG, HS TROP, PTT, PT, CK, CBC ####[place] [address] [place] [address] [place] Prothrombin Time INRon 10-21 INR Coag (PPP) [Relative time] 3.2 {INR} Normal [facility] Comment on above: Result Comment: INR Therapeutic Range A) Pre- and Peroperative OAT started two weeks before surgery. NOT HIP SURGERY: 1.5 - 2.5 HIP SURGERY: 2 - 3 B) Primary and secondary prevention of venous THROMBOSIS: 2 - 3 C) Active venous thrombosis, pulmonary embolism and prevention of recurrent venous thrombosis: 2 - 3 D) Prevention of arterial thromboembolism including patients with mechanical heart valves: 3 - 4.5 Performed By: #### B BUSINESS INTELLIGENCE DIRECTOR, CMP, MG, HS TROP, PTT, PT, CK, CBC ####[place] [id number] [facility] PT Coag (PPP) [Time] 35.4 s High 9.0-12.9 [facility] Comment on above: Result Comment: A he matocrit value greater than 55% may lead to inaccurate results in coagulation testing. Patients having hematocrit values >55% require a special collection tube for coagulation studies. Please contact the laboratory at [phone] for redraw instructions. Performed By: #### B BUSINESS INTELLIGENCE DIRECTOR, CMP, MG, HS TROP, PTT, PT, CK, CBC ####[place] [id number] [facility] Troponin I High Sensitivityo n 10-21-2023 Troponin I High Sensitivity 9.4 pg/mL Normal 0.0-20.0 [facility] Comment on above: Result Comment: PERF ORMED BY: [place] [address] PATHOLOGIST COMPOUNDING ASSISTANT ION THOMPSON M.D. Performed By: #### B BUSINESS INTELLIGENCE DIRECTOR, CMP, MG, HS TROP, PTT, PT, CK, CBC ####[place] [id number] [facility] XR chest 1V portableon 10-21 XR chest 1V portable [facility] [address] [place] [address] [place] [address] XRay Report Signed Patient: Vick Mercado MR#: [id number] : 1955 Acct:[id number] Age/Sex: 68 / M ADM Date: 10/21/23 Loc: ER Room: Type: [facility] ER Attending Dr: Copies to: Steven Aldridge MD Ordering Provider: Steven Aldridge MD Date of Service: 10/21/23 XR/XR chest 1V portable: Shortness of Breath/Dyspnea Plain film chest Single view HISTORY: Shortness of breath for 3 days COMPARISON: 02/23/2023 FINDINGS: SUPPORT DEVICES: None POSTSURGICAL CHANGES: Cervical spine fixation hardware. [place] screw in the left humeral head. HEART: Within normal limits PULMONARY HIWOT: Within normal limits MEDIASTINUM: Unremarkable LUNGS AND PLEURA: No acute lung process, pleural effusion or pneumothorax identified. BONY STRUCTURES: Thoracic spondylosis ADDITIONAL FINDINGS None XR/XR chest 1V portable IMPRESSION: No acute process. Impression dictated by: Antoni Pizano M.D.10/21/2023 3:35 PM Dictation Location: [place] [address] Transcribed By: [facility] 10/21/23 1535 Dictated By: Antoni Pizano DO 10/21/231533 Signed By: 10/21/23 1535 Normal [facility] Basic Metabolic Panelon 11-3 Anion gap [Moles/Vol] 12.2 mmol/L Normal 6.0-15.0 [facility] Comment on above: Performed By: #### B LUIZ, CBC ####[place] [id number] [facility] Calcium [Mass/Vol] 9.5 mg/dL Normal 8.6-10.3 [facility] Comment on above: Result Comment: PERF ORMED BY: [facility] [address] [facility] [place] [id number] PATHOLOGIST COMPOUNDING ASSISTANT ION THOMPSON M.D. Performed By: #### B MP, CBC ####[address] [address] [facility] Chloride [Moles/Vol] 103 mmol/L Normal 98-107 [facility] Comment on above: Performed By: #### B MP, CBC ####[address] [address] [place] CO2 [Moles/Vol] 25.9 mmol/L Normal 21.0-31.0 [facility] Comment on above: Performed By: #### B MP, CBC ####[address] [address] [place] Creatinine [Mass/Vol] 0.78 mg/dL Normal 0.70-1.30 [facility] Comment on above: Performed By: #### B MP, CBC ####[address] [address] [place] GFR/1.73 sq M.predicted MDRD (S/P/Bld) [Vol rate/Area] mL/min/{1.73_m2} Normal [facility] Comment on above: Performed By: #### B MP, CBC ####[place] [id number] [facility] Glucose [Mass/Vol] 133 mg/dL High 70-100 [facility] Comment on above: Result Comment: [place] Glucose Reference Range is dependent on time and content of last meal. Glucose of more than 200 mg/dL in a nonstressed, ambulatory subject supports the diagnosis of Diabetes Mellitus. ADA recommended reference range Performed By: #### B MP, CBC ####[place] [address] [place] [id number] [facility] Potassium [Moles/Vol] 4.1 mmol/L Normal 3.5-5.1 [facility] Comment on above: Performed By: #### B MP, CBC ####[place] [id number] [facility] Sodium [Moles/Vol] 137 mmol/L Normal 136-145 [facility] Comment on above: Performed By: #### B MP, CBC ####[place] [id number] [place] [phone] [facility] Urea nitrogen [Mass/Vol] 22 mg/dL Normal 7-25 [facility] Comment on above: Performed By: #### B MP, CBC ####[place] [id number] [facility] Basophils Auto (Bld) [#/Vol] Ordered By: Jairo Wild on 09-01-2023 Basophils (Bld) [#/Vol] 0.1 10*3/uL 0.0-0.2 [facility] Basophils/100 WBC Auto (Bld) Ordered By: Jairo iWld on 09-01-2023 Basophils/100 WBC (Bld) 0.6 % . [facility] Calcium [Mass/volume] in Ser um or PlasmaOrdered By: Jairo Wild on 09-01-2023 Calcium [Mass/Vol] 9.5 mg/dL 8.6-10.3 [facility] Carbon dioxide, total [Moles /volume] in Serum or PlasmaOrdered By: Jairo Wild on 09-01-2023 CO2 [Moles/Vol] 25.9 mmol/L 21.0-31.0 [facility] Chloride [Moles/volume] in S zina or PlasmaOrdered By: Jairo Wild on 09-01-2023 Chloride [Moles/Vol] 103 mmol/L 98-107 [facility] Complete Blood Count Auto Di ffon 09-01-2023 Basophils (Bld) [#/Vol] 0.1 10*3/uL Normal 0.0-0.2 [facility] Comment on above: Result Comment: PERF ORMED BY: [facility] [address] [place] [address] PATHOLOGIST COMPOUNDING ASSISTANT ION THOMPSON M.D. Performed By: #### B MP, CBC ####[address] Basophils/100 WBC (Bld) 0.6 % Normal . [facility] Comment on above: Performed By: #### B MP, CBC ####[address] Eosinophils (Bld) [#/Vol] 0.4 10*3/uL Normal 0.0-0.45 [facility] Comment on above: Performed By: #### B MP, CBC ####[address] Eosinophils/100 WBC (Bld) 4.0 % Normal . [facility] Comment on above: Performed By: #### B MP, CBC ####[address] Erythrocyte distribution width (RBC) [Ratio] 12.5 % Normal 12.0-14.8 [facility] Comment on above: Performed By: #### B MP, CBC ####[address] Hematocrit (Bld) [Volume fraction] 43.5 % Normal 38.8-50.0 [facility] Comment on above: Performed By: #### B MP, CBC ####[place] [address] [place] Hemoglobin (Bld) [Mass/Vol] 14.9 g/dL Normal 13.0-17.0 [facility] Comment on above: Performed By: #### B MP, CBC ####[address] Lymphocytes (Bld) [#/Vol] 2.5 10*3/uL Normal 1.00-4.8 [facility] Comment on above: Performed By: #### B MP, CBC ####[address] Lymphocytes/100 WBC (Bld) 24.6 % Normal . [facility] Comment on above: Performed By: #### B MP, CBC ####[address] MCH (RBC) [Entitic mass] 31.5 pg Normal 27.5-35.2 [facility] Comment on above: Performed By: #### B MP, CBC ####[address] MCV (RBC) [Entitic vol] 92.2 fL Normal 83.5-101 [facility] Comment on above: Performed By: #### B MP, CBC ####[address] Mean Corpuscular HGB Conc 34.2 g/dL Normal 32.5-35.6 [facility] Comment on above: Performed By: #### B MP, CBC ####[address] Monocytes (Bld) [#/Vol] 1.0 10*3/uL High 0.0-0.8 [facility] Comment on above: Performed By: #### B MP, CBC ####[address] Monocytes/100 WBC (Bld) 9.7 % Normal . [facility] Comment on above: Performed By: #### B MP, CBC ####[address] [address] [place] Neutrophils (Bld) [#/Vol] 6.3 10*3/uL Normal 1.8-7.7 [facility] Comment on above: Performed By: #### B MP, CBC ####[address] Neutrophils/100 WBC (Bld) 61.1 % Normal . [facility] Comment on above: Performed By: #### B MP, CBC ####[address] NRBC% 0.1 /100{WBC} Normal 0-0.5 [facility] Comment on above: Performed By: #### B MP, CBC ####[address] Platelet mean volume (Bld) [Entitic vol] 8.0 fL Normal 6.6-10.1 [facility] Comment on above: Performed By: #### B MP, CBC ####[address] Platelets (Bld) [#/Vol] 235 10*3/uL Normal 150-450 [facility] Comment on above: Performed By: #### B MP, CBC ####[address] RBC (Bld) [#/Vol] 4.72 10*6/uL Normal 3.90-5.60 [facility] Comment on above: Performed By: #### B MP, CBC ####[address] WBC (Bld) [#/Vol] 10.4 10*3/uL Normal 4.1-10.5 [facility] Comment on above: Performed By: #### B MP, CBC ####[address] Creatinine [Mass/volume] in Serum or PlasmaOrdered By: Jairo Wild on 09-01-2023 Creatinine [Mass/Vol] 0.78 mg/dL 0.70-1.30 [facility] ECG 12 lead ECGon 09-01-2023 ECG 12 lead ECG [facility] [address] Electrocardiograph Report Signed Patient: Vick Mercado MR#: [id number] : 1955 Acct:[id number] Age/Sex: 68 / M ADM Date: 09/01/23 Loc: Room: Type: [facility] Attending Dr: Jairo Wild DO Ordering Provider: Jairo Wild DO Date of Service: 09/01/23 ECG/ECG 12 lead ECG: surgery 09/13/23 Copies to: Test Reason : Blood Pressure : / mmHG Vent. Rate : 104 BPM Atrial Rate : 441 BPM P-R Int : 000 ms QRS Dur : 090 ms QT Int : 376 ms P-R-T Axes : 000 -21 077 degrees QTc Int : 494 ms Atrial fibrillation with rapid ventricular response Nonspecific ST and T wave abnormality , probably digitalis effect Abnormal ECG When compared with ECG of 24-FEB-2023 07:30, Atrial fibrillation has replaced Sinus rhythm Confirmed by SARAH MATA [id number] on 09/01/2023 2:23:20 PM Referred By: SHAQUILLE WILD Electronically Signed By:DONATO BURGER MD [facility] Transcribed By: MUS Signed By Jorge Burger MD 09/01/23 1423 Normal [facility] Eosinophils Auto (Bld) [#/Vo l]Ordered By: Jairo Wild on 09-01-2023 Eosinophils (Bld) [#/Vol] 0.4 10*3/uL 0.0-0.45 [facility] Eosinophils/100 WBC Auto (Bl d)Ordered By: Jairo Wild on 09-01-2023 Eosinophils/100 WBC (Bld) 4.0 % . [facility] Erythrocyte distribution wid th Auto (RBC) [Ratio]Ordered By: Jairo Wild on 09-01-2023 Erythrocyte distribution width (RBC) [Ratio] 12.5 % 12.0-14.8 [facility] Glucose [Mass/volume] in Ser um or PlasmaOrdered By: Jairo Wild on 09-01-2023 Glucose [Mass/Vol] 133 mg/dL 70-100 [facility] Comment on above: ADA recommended refe rence rangeRandom Glucose Reference Range is dependent on time and content of last meal. Glucose of more than 200 mg/dL in a nonstressed, ambulatory subject supports the diagnosis of Diabetes Mellitus. Hematocrit Auto (Bld) [Volum e fraction]Ordered By: Jairo Wild on 09-01-2023 Hematocrit (Bld) [Volume fraction] 43.5 % 38.8-50.0 [facility] Hemoglobin [Mass/volume] in BloodOrdered By: Jairo Wild on 09-01-2023 Hemoglobin (Bld) [Mass/Vol] 14.9 g/dL 13.0-17.0 [facility] Leukocytes [#/volume] correc rehna for nucleated erythrocytes in Blood by Automated counOrdered By: Jairo Wild on 09-01-2023 WBC corrected for nucl RBC Auto (Bld) [#/Vol] 10.4 10*3/uL 4.1-10.5 [facility] Lymphocytes Auto (Bld) [#/Vo l]Ordered By: Jairo Wild on 09-01-2023 Lymphocytes (Bld) [#/Vol] 2.5 10*3/uL 1.00-4.8 [facility] Lymphocytes/100 WBC Auto (Bl d)Ordered By: Jairo Wild on 09-01-2023 Lymphocytes/100 WBC (Bld) 24.6 % . [facility] MCH Auto (RBC) [Entitic mass ]Ordered By: Jairo Wild on 09-01-2023 MCH (RBC) [Entitic mass] 31.5 pg 27.5-35.2 [facility] MCHC Auto (RBC) [Mass/Vol]Or dered By: Jairo Wild on 09-01-2023 MCHC (RBC) [Mass/Vol] 34.2 g/dL 32.5-35.6 [facility] MCV Auto (RBC) [Entitic vol] Ordered By: Jairo Wild on 09-01-2023 MCV (RBC) [Entitic vol] 92.2 fL 83.5-101 [facility] Monocytes Auto (Bld) [#/Vol] Ordered By: Jairo Wild on 09-01-2023 Monocytes (Bld) [#/Vol] 1.0 10*3/uL 0.0-0.8 [facility] Monocytes/100 WBC Auto (Bld) Ordered By: Jairo Wild on 09-01-2023 Monocytes/100 WBC (Bld) 9.7 % . [facility] Neutrophils Auto (Bld) [#/Vo l]Ordered By: Jairo Wild on 09-01-2023 Neutrophils (Bld) [#/Vol] 6.3 10*3/uL 1.8-7.7 [facility] Neutrophils/100 WBC Auto (Bl d)Ordered By: Jairo Wild on 09-01-2023 Neutrophils/100 WBC (Bld) 61.1 % . [facility] No Panel InformationOrdered By: Jairo Wild on 09-01-2023 Estimated GFR (CKD-EPI) > 60.0 mL/Min [facility] Creatinine Clearance (Chem N/A [facility] Nucleated erythrocytes [Pres ence] in Blood by Automated countOrdered By: Jairo Wild on 09-01-2023 Nucleated RBC Auto Ql (Bld) 0.1 /100{WBC} 0-0.5 [facility] Platelet mean volume Auto (B ld) [Entitic vol]Ordered By: Jairo Wild on 09-01-2023 Platelet mean volume (Bld) [Entitic vol] 8.0 fL 6.6-10.1 [facility] Platelets Auto (Bld) [#/Vol] Ordered By: Jairo Wild on 09-01-2023 Platelets (Bld) [#/Vol] 235 10*3/uL 150-450 [facility] Potassium [Moles/volume] in Serum or PlasmaOrdered By: Jairo Wild on 09-01-2023 Potassium [Moles/Vol] 4.1 mmol/L 3.5-5.1 [facility] RBC Auto (Bld) [#/Vol]Ordere d By: Jairo Wild on 09-01-2023 RBC (Bld) [#/Vol] 4.72 10*6/uL 3.90-5.60 [facility] Serum or plasma anion gap de terminationOrdered By: Jairo Wild on 09-01-2023 Anion gap [Moles/Vol] 12.2 mmol/L 6.0-15.0 [facility] Sodium [Moles/volume] in Ser um or PlasmaOrdered By: Jairo Wild on 09-01-2023 Sodium [Moles/Vol] 137 mmol/L 136-145 [facility] Urea nitrogen [Mass/volume] in Serum or PlasmaOrdered By: Jairo Wild on 09-01-2023 Urea nitrogen [Mass/Vol] 22 mg/dL 7-25 [facility] WBC Auto (Bld) [#/Vol]Ordere d By: Jairo Wild on 09-01-2023 WBC (Bld) [#/Vol] 10.4 10*3/uL 4.1-10.5 [facility] NM HEART BLOOD POOL EJECTION FRACTION WALL MOTION (MUGA)on 08-24-2023 NM HEART BLOOD POOL EJECTION FRACTION WALL MOTION (MUGA) Interpreted By: John Pena and Giannuzzi Michael STUDY: MUGA Performing facility: [facility], [address] [place] [address], [address], [address] Provider: Karlo Aldridge RN, CRUSHER LOADER EQUIPMENT OPERATOR PCP: Dr. Gabino Joseph Supervising provider: John Pena MD INDICATION: NICM HISTORY: Gender: M; Age: 68 y/o ; Height: HT 177.8 cm cm; Weight: WT 94.802 kg kg. CAD; HTN; CHF Quit smoking 15 years ago. Cardiac catheterization on 2022. COMPARISON: Previous nuclear testing completed [id number] Muga EF=33% at [facility]. Previous echo testing completed [id number] EF=40-45% at [facility]. ACCESSION NUMBER(S): [id number] ORDERING CLINICIAN: KARLO ALDRIDGE TECHNIQUE: The patient received an IV injection of 3 ml of stannous pyrophosphate (PYP) using the in-vivo method of labeling red blood cells. After 30 minutes the patient received another IV injection of 25.7 mCi of Technetium 99m pertechnetate. Planar images of the left ventricle were obtained in the AZERI 45, Lt Lateral and anterior projections. FINDINGS: The right ventricle was mildly hypokinetic and mildly dilated. The left ventricle was mildly dilated in size. Regional wall motion was globally hypokinetic. Global resting LVEF was moderately to severely reduced- at 31%. IMPRESSION: Mildly dilated and mildly hypokinetic right ventricle. Abnormalresting left ventricular function. Left ventricular ejection fraction is 31%. No previous study available for comparison Signed by: John Pena 08/24/2023 5:04 PM Dictation workstation: [id number] [facility] Falls Screening (Age 18+)on 06-13-2023 Fall risk assessment a) No falls within the last year [employer] 250 DO Work Phone: Falls Screening (Age 18+) Adult [employer] 250 DO Work Phone: Office Visit (Cardiology)on 06-13-2023 Follow-up visit Diagnoses/Problems Assessed Nonischemic cardiomyopathy (425.4) (I42.8) CAD (coronary artery disease) (414.00) (I25.10) Hypertension, benign (401.1) (I10) Obstructive sleep apnea, adult (327.23) (G47.33) compliant with Bipap Statin intolerance (995.27) (Z78.9) Class 1 obesity with body mass index (BMI) of 30.0 to 30.9 in adult (278.00,V85.30) (E66.9,Z68.30) Orders Nonischemic cardiomyopathy Changed: From Entresto 24-26 MG Oral Tablet Take 1 tablet daily To Entresto 24-26 MG Oral Tablet TAKE 1 TABLET BY MOUTH TWICE A DAY Basic Metabolic Panel; Status:Active; Requested for:[id number]; IO EKG Electrocardiogram- 12 Lead; Status:Complete; Done: [id number] IO MUGA (Nuclear Testing); Status:Hold For - Scheduling; Requested for:[id number]; Radiologist to Determine Optimal Study : Y What are the patient's signs and symptoms? : ISLAS, fatigue Overweight with body mass index (BMI) of 29 to 29.9 in adult Healthy Weight Tips; Status:Complete; Done: [id number] Patient Instructions PLAN: Through informed decision making process incorporating patients unique circumstances, the following treatment plan will be initiated: 1. Prescription drug management of cardiovascular medication for efficacy, adherence to treatment, side effect assessment and polypharmacy. Current treatment clinically warranted and to continue with following modifications: - Increase Entresto to 24/26mg twice daily 2. Chem6 in one week 3. MUGA mid Sep 2023 to f/u EF with ECG 4. Return for follow-up; in the interim, contact the office if new symptoms arise. Dr. Lucio after testing Chief Complaint Routine f/u: 'doing good' VICK MERCADO is being seen for a 3 month follow-up of cardiomyopathy. Patient presents to the office ambulatory with steady gait, is accompanied by his . Last evaluated in clinic by Dr. Lucio April 2023. At that time, Jardiance was added to medical regimen. Unfortunately patient reports being unable to tolerate. It is also noted that he is only taking Entresto once daily. Entresto patient assistance forms have been completed, he currently has a 3-month supply. Patient presents today reportedly doing 'okay'. He continues to do yard work, works out in his garden and rides his tricycle approximately 15 miles a day. He is active on a [employer] league. He denies any dyspnea on exertion, no evidence orthopnea or PND, no edema. Denies dizziness or lightheadedness. Remains compliant with BiPAP treatment. May 05, 2023 MUGA EF 33%. GDMT: Entresto 24/26mg once daily January. Coreg 6.25 AND aldactone 12.5 Plan today will be to optimize GDMT with correct dose of Entresto and repeat MUGA in September (NICM 6 months on treatment) Most recent potassium 4.4, creatinine 0.07 Feb 2023: Cath normal coronaries, LVEF 20% January 2023 echo: EF 40 to 45% with hypokinesis inferior lateral and basal apical May 2023 MUGA EF 33% History of Present Illness The patient presents with non-ischemic 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 with reduced ejection fraction. The patient's last LV ejection fraction was 33%. The patient is NYHA functional Class II. This is stage C 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. Symptoms: denies lower extremity edema, denies dyspnea on exertion, stable fatigue, denies exercise intolerance, denies orthopnea and denies paroxysmal nocturnal dyspnea. Associated symptoms include recent 3 pounds weight gain. Home Monitoring: The patient checks his weight regularly. Weight control has been good. Medications: the patient is adherent with his medication regimen. He denies medication side effects. Active Problems Problems Chest pain (786.50) (R07.9) CHF (NYHA class II, ACC/AHA stage C) (428.0) (I50.9) Former smoker (V15.82) (Z87.891) quit 2007 Nonischemic cardiomyopathy (425.4) (I42.8) Obstructive sleep apnea, adult (327.23) (G47.33) Overweight with body mass index (BMI) of 29 to 29.9 in adult (278.02,V85.25) (E66.3,Z68.29) Shortness of breath (786.05) (R06.02) Surgical History Problems History of Cholecystectomy History of Complete colonoscopy unsure of date History of Finger amputation History of Liver surgery History of Neck surgery History of Renal lithotripsy History of Rotator cuff repair History of Shoulder surgery Current Meds Medication NameInstruction ALPRAZolam 0.5 MG Oral TabletTAKE 1-1AND1/2 TABLETS TWICE DAILY Aspirin 81 MG Oral Tablet Delayed ReleaseTAKE 1 TABLET DAILY. Carvedilol 6.25 MG Oral TabletTAKE 1 TABLET BY MOUTH TWICE DAILY WITH MEALS Entresto 24-26 MG Oral TabletTake 1 tablet daily Furosemide 20 MG Oral TabletTAKE 1 TABLET BY MOUTH DAILY Magnesium Oxide 400 MG Oral TabletTAKE 1 TABLET DAILY. Melatonin 5 MG Oral TabletTake 1 tablet daily Meloxicam 15 MG Oral TabletTAKE 1 TABLET BY MOUTH EVERY MORNING Niacin 500 MG Oral TabletTAKE 2 TABLETS DAILY. Niacinamide 500 MG Oral TabletTAKE 1 TABLET DAILY DIRECTED. Potassium Iodide TABS1 daily Spironolactone 25 MG Oral TabletTAKE 0.5 TABLET Sherin (more content not included)... Normal [employer] [facility] MUGA SCAN INJECTIONon [facility] MUGA SCAN INJECTION Patient Name: VICK MERCADO STUDY: MUGA Performing facility: [facility], [address] [place] [address], [address], [place] [address] [facility] Provider: Balbir Lucio DO, FACC PCP: Dr. Gabino Corbin Supervising provider: John Pena MD INDICATION: CHF Non ischemic cardiomyopathy HISTORY: Gender: M; Age: 68 y/o ; Height: 0 cm; Weight: 0 kg. HTN; CHF Quit smoking 15 years ago. Cardiac catheterization on 2022. COMPARISON: No comparison. Previous echo testing completed [id number] EF=40-45% at [facility]. ACCESSION NUMBER(S): [id number]; [id number] ORDERING CLINICIAN: JORGE LUCIO TECHNIQUE: The patient received an IV injection of 3 ml of stannous pyrophosphate (PYP) using the in-vivo method of labeling red blood cells. After 15 minutes the patient received another IV injection of 26.5 mCi of Technetium 99m pertechnetate. Planar images of the left ventricle were obtained in the AZERI 45, Lt Lateral and anterior projections. FINDINGS: The right ventricle was normal. The left ventricle was enlarged in size. Regional wall motion was abnormal. With moderate to severe global hypokinesis Global resting LVEF was abnormal- at 33%. IMPRESSION: Normal resting right ventricular function. Abnormalresting left ventricular function. Left ventricular ejection fraction is 33%. No previous studies are available for comparison Electronically signed by: KINGS BANEGAS MD Normal [facility] No Panel Informationon 05-05 Normal [facility] [employer] DO Work Phone: Office Visit (Cardiology)on 04-15-2023 Follow-up visit Diagnoses/Problems Assessed Nonischemic cardiomyopathy (425.4) (I42.8) CHF (NYHA class II, ACC/AHA stage C) (428.0) (I50.9) Obstructive sleep apnea, adult (327.23) (G47.33) Overweight with body mass index (BMI) of 29 to 29.9 in adult (278.02,V85.25) (E66.3,Z68.29) Orders CHF (NYHA class II, ACC/AHA stage C), Nonischemic cardiomyopathy Start: Jardiance 10 MG Oral Tablet; TAKE 1 TABLET BY MOUTH ONCE DAILY NM Muga (Gated Cardiac Blood Pool); Status:Hold For - Scheduling,Retrospective By Protocol Authorization; Requested for:[id number]; Radiologist to Determine Optimal Study : Y What are the patient's signs and symptoms? : chf, non-ischemic cardiomyopathy Basic Metabolic Panel; Status:Active - Retrospective Authorization; Requested for:[id number]; Renew: Carvedilol 6.25 MG Oral Tablet; TAKE 1 TABLET BY MOUTH TWICE DAILY WITH MEALS Renew: Spironolactone 25 MG Oral Tablet; TAKE 0.5 TABLET Daily CHF (NYHA class II, ACC/AHA stage C), Nonischemic cardiomyopathy, Shortness of breath Brain Natriuretic Peptide BNP; Status:Active - Retrospective Authorization; Requested for:[id number]; Overweight with body mass index (BMI) of 29 to 29.9 in adult Healthy Weight Tips; Status:Complete - Retrospective Authorization; Done: [id number] Some eating tips that can help you lose weight.; Status:Complete - Retrospective Authorization; Done: [id number] Patient Instructions Please bring all medicines, vitamins, and herbal supplements with you when you come to the office. Prescriptions will not be filled unless you are compliant with your follow up appointments or have a follow up appointment scheduled as per instruction of your physician. Refills should be requested at the time of your visit. Follow up in 2 months Chief Complaint VICK MERCADO is being seen for follow-up of a hospitalization for. Patient is a 68-year-old gentleman who returns for follow-up following recent diagnosis of severe nonischemic cardiomyopathy, initiating appropriate guideline directed medical therapies and is tolerating these therapies well. Ejection fraction is 20%. He is lost approximately 10 pounds since discharge, feeling much better clinically with no shortness of breath and now essentially asymptomatic. He does have underlying obstructive sleep apnea, moderate obesity, no evidence of substantial coronary disease NYHA classification currently is class II/C. Recommendations, initiate Jardiance 10 mg daily, obtain a MUGA scan in the next 8 to 12 weeks, obtain Chem-6 and BNP we will follow-up in 12 weeks Surgical History Problems History of Cholecystectomy History of Complete colonoscopy unsure of date History of Finger amputation History of Liver surgery History of Neck surgery History of Renal lithotripsy History of Rotator cuff repair History of Shoulder surgery Current Meds Medication NameInstruction ALPRAZolam 0.5 MG Oral TabletTAKE 1-1AND1/2 TABLETS TWICE DAILY Aspirin 81 MG Oral Tablet Delayed ReleaseTAKE 1 TABLET DAILY. Carvedilol 6.25 MG Oral TabletTAKE 1 TABLET BY MOUTH TWICE DAILY WITH MEALS Entresto 24-26 MG Oral TabletTake 1 tablet daily Furosemide 20 MG Oral TabletTAKE 1 TABLET BY MOUTH DAILY Magnesium Oxide 400 MG Oral TabletTAKE 1 TABLET DAILY. Melatonin 5 MG Oral TabletTake 1 tablet daily Meloxicam 15 MG Oral TabletTAKE 1 TABLET BY MOUTH EVERY MORNING Niacinamide 500 MG Oral TabletTAKE 1 TABLET DAILY DIRECTED. Potassium Iodide TABS1 daily Spironolactone 25 MG Oral TabletTAKE 0.5 TABLET Daily traMADol HCl - 50 MG Oral TabletTAKE 1 TABLET BY MOUTH EVERY 6 HOURS NEEDED Vitamin C 500 MG Oral CapsuleTAKE 1 CAPSULE Daily Zinc 25 MG TABSTAKE 1 TABLET DAILY. Allergies Medication Statins unknown; Recorded By: Monique Flores; 04/15/2023 11:49:10 AM Social History Problems Alcohol ingestion (V69.8) (Z78.9) 10oz wine daily Daily caffeine consumption coffee 1 mug daily Former smoker (V15.82) (Z87.891) quit 2007 No illicit drug use Review of Systems Constitutional: not feeling tired. Cardiovascular: no intermittent leg claudication and as noted in HPI. Respiratory: no cough and no shortness of breath. Gastrointestinal: no change in bowel habits and no blood in stools. Integumentary: no skin rashes. Neurological: dizziness, but no seizures and no frequent falls. All other systems have been reviewed and are negative for complaint. Vitals Vital Signs Recorded: [id number] 11:53AM Heart Rate60, L Radial Fgxxreip950, LUE, Sitting Dbdqnxgut19, LUE, Sitting Height5 ft 10 in Zyvkzn838 lb BMI Ggkirefnaw88.99 kg/m2 BSA Calculated2.13 Tobacco Useb) No PHQ-2 #1. Over the last 2 weeks have you felt down, depressed or hopeless? (If yes, answer PHQ-9 below)No PHQ-2 #2. Over the last 2 weeks have you felt little interest or pleasure in doing things? (If yes, answer PHQ-9 below)No Falls Screening (Age 18+)a) No falls within the last year Physical Exam Constituti (more content not included)... Normal [employer] Tobacco Screening.on 023 Adult depression screening assessment [facility] 250 DO Work Phone: Fall risk assessment a) No falls within the last year [facility] [employer] 250 DO Work Phone: Tobacco use status [facility] b) No [facility] 250 DO Work Phone: Activated partial thrombopla stin time (aPTT) in platelet poor plasma by coagulation aOrdered By: Papo Lucio on 03-02-2023 aPTT Coag (PPP) [Time] 30.5 s 25.1-36.5 [facility] Cholesterol [Mass/volume] in Serum or PlasmaOrdered By: Papo Lucio on 03-02-2023 Cholesterol [Mass/Vol] 225 mg/dL 140-200 [facility] Comment on above: Chol less than 200 m g/dl low riskChol 201-239 mg/dl borderline riskChol 240 mg/dl and greater high risk Cholesterol in LDL Calc [Mas s/Vol]Ordered By: Papo Lucio on 03-02-2023 Cholesterol in LDL [Mass/Vol] 148 mg/dL 0-100 [facility] Comment on above: LDL ATP III CLASSIFI CATIONLDL less than 100 mg/dL OptimalLDL 100-129 mg/dL Near or above optimalLDL 130-159 mg/dL Borderline highLDL 160-189 mg/dL HighLDL greater than 189 mg/dL Very high Cholesterol in VLDL Calc [Ma ss/Vol]Ordered By: Papo Lucio on 03-02-2023 Cholesterol in VLDL [Mass/Vol] 34 mg/dL [facility] Coagulation Profileon 2022 aPTT Coag (Bld) [Time] 30.5 s Normal 25.1-36.5 [facility] Comment on above: Result Comment: PERF ORMED BY: [facility] [address] [place] [address] PATHOLOGIST COMPOUNDING ASSISTANT ION THOMPSON M.D. Performed By: #### P P, LIPID ####[facility] [id number] [place] [address] [facility] INR Coag (PPP) [Relative time] 1.0 {INR} Normal [facility] Comment on above: Result Comment: INR Therapeutic Range A) Pre- and Peroperative OAT started two weeks before surgery. NOT HIP SURGERY: 1.5 - 2.5 HIP SURGERY: 2 - 3 B) Primary and secondary prevention of venous THROMBOSIS: 2 - 3 C) Active venous thrombosis, pulmonary embolism and prevention of recurrent venous thrombosis: 2 - 3 D) Prevention of arterial thromboembolism including patients with mechanical heart valves: 3 - 4.5 Performed By: #### P P, LIPID ####[facility] [id number] [place] [address] [facility] PT Coag (PPP) [Time] 12.0 s Normal 9.0-12.9 [facility] Comment on above: Performed By: #### P P, LIPID ####[facility] [id number] [place] [id number] [facility] Laboratory - Chemistry and C hemistry - challengeon 03-02-2023 Cholesterol [Mass/Vol] 225\S\225 above hig h threshold 140-200 [facility] 250 DO Work Phone: Comment on above: Chol less than 200 m g/dl low risk Chol 201-239 mg/dl borderline risk Chol 240 mg/dl and greater high risk Cholesterol in LDL [Mass/Vol] 148\S\148 above high threshold 0-100 [facility] 250 DO Work Phone: Comment on above: LDL ATP III CLASSIFI CATION LDL less than 100 mg/dL Optimal LDL 100-129 mg/dL Near or above optimal LDL 130-159 mg/dL Borderline high LDL 160-189 mg/dL High LDL greater than 189 mg/dL Very high Laboratory - CoagulationOrde red By: Papo Lucio on 03-02-2023 PT Coag (PPP) [Time] 12.0 s 9.0-12.9 [facility] Lipid Panelon 03-02-2023 Cholesterol [Mass/Vol] 225 mg/dL High 140-200 [facility] Comment on above: Result Comment: Chol less than 200 mg/dl low risk Chol 201-239 mg/dl borderline risk Chol 240 mg/dl and greater high risk Performed By: #### P P, LIPID ####[facility] [id number] [place] [id number] [facility] Cholesterol in HDL [Mass/Vol] 43 mg/dL Normal 29-71 [facility] Comment on above: Result Comment: HDL CHOL ATP-III CLASSIFICATION Cardiovascular Risk HDL > or equal to 60 mg/dL LOW HDL < 40 mg/dL HIGH Performed By: #### P P, LIPID ####[address] Cholesterol.total/Chol esterol in HDL [Mass ratio] 5.2 {ratio} Normal <5.0 [facility] Comment on above: Result Comment: PERF ORMED BY: [facility] [address] [place] [id number] PATHOLOGIST COMPOUNDING ASSISTANT ION THOMPSON M.D. Performed By: #### P P, LIPID ####[place] [id number] [facility] LDL Cholesterol,Calculated 148 mg/dL High 0-100 [facility] Comment on above: Result Comment: LDL ATP III CLASSIFICATION LDL less than 100 mg/dL Optimal LDL 100-129 mg/dL Near or above optimal LDL 130-159 mg/dL Borderline high LDL 160-189 mg/dL High LDL greater than 189 mg/dL Very high Performed By: #### P P, LIPID ####[place] [id number] [facility] Triglyceride w/Reflex 171 mg/dL High 0-149 [facility] Comment on above: Result Comment: TRIG ATP III CLASSIFICATION TRIG less than 150 mg/dL Normal TRIG 150-199 mg/dL Borderline high TRIG 200-500 mg/dL High TRIG greater than 500 mg/dL Very high Standard traceable to the Center for Disease Conrtrol and Prevention (CDC) test method. Performed By: #### P P, LIPID ####[place] [id number] [facility] VLDL CHOLESTEROL 34 mg/dL Normal [facility] Comment on above: Performed By: #### P P, LIPID ####[place] [id number] [facility] No Panel Informationon 03-02 30.5\S\30.5 Normal 25.1-36.5 -[facility] 250 DO Work Phone: Comment on above: PERFORMED BY:[place] [id number] [place], [place] [phone] MEDICAL DIRECTORION THOMPSON M.D. 1.0\S\1.0 Normal [facility] 250 DO Work Phone: Comment on above: INR Therapeutic Rang e A) Pre- and Peroperative OAT started two weeks before surgery. NOT HIP SURGERY: 1.5 - 2.5 HIP SURGERY: 2 - 3 B) Primary and secondary prevention of venous THROMBOSIS: 2 - 3 C) Active venous thrombosis, pulmonary embolism and prevention of recurrent venous thrombosis: 2 - 3 D) Prevention of arterial thromboembolism including patients with mechanical heart valves: 3 - 4.5 12.0\S\12.0 Normal 9.0-12.9 [facility] 250 DO Work Phone: 5.2\S\5.2 Normal <5.0 [facility] erick 250 DO Work Phone: Comment on above: PERFORMED BY:[place] [address] [place] [place], [place] [phone] MEDICAL DIRECTORION THOMPSON M.D. 34\S\34 Normal [facility] DO Work Phone: 171\S\171 above high threshold 0-149 [facility] erick 250 DO Work Phone: Comment on above: TRIG ATP III CLASSIF ICATION TRIG less than 150 mg/dL Normal TRIG 150-199 mg/dL Borderline high TRIG 200-500 mg/dL High TRIG greater than 500 mg/dL Very high Standard traceable to the Center for Disease Conrtrol and Prevention (CDC) test method. 43\S\43 Normal 29-[address] [facility] [address] erick 250 DO Work Phone: Comment on above: HDL CHOL ATP-III CLA SSIFICATION Cardiovascular Risk HDL > or equal to 60 mg/dL LOW HDL < 40 mg/dL HIGH Platelet poor plasma interna tional normalized ratio (INR) by coagulation assay (relatOrdered By: Papo Lucio on 03-02-2023 INR Coag (PPP) [Relative time] 1.0 {INR} [facility] Comment on above: INR Therapeutic Rang e A) Pre- and Peroperative OAT started two weeks before surgery. NOT HIP SURGERY: 1.5 - 2.5 HIP SURGERY: 2 - 3B) Primary and secondary prevention of venous THROMBOSIS: 2 - 3C) Active venous thrombosis, pulmonary embolismand prevention of recurrent venous thrombosis: 2 - 3D) Prevention of arterial thromboembolismincluding patients with mechanical heart valves: 3 - 4.5 Serum or plasma high density lipoprotein (HDL) cholesterol measurementOrdered By: Papo Lucio on 03-02-2023 Cholesterol in HDL [Mass/Vol] 43 mg/dL 29- [facility] Comment on above: HDL CHOL ATP-III CLA SSIFICATION Cardiovascular RiskHDL > or equal to 60 mg/dL LOWHDL < 40 mg/dL HIGH Serum or plasma total choles terol/high density lipoprotein (HDL) cholesterol mass ratOrdered By: Papo Lucio on 03-02-2023 Cholesterol.total/Chol esterol in HDL [Mass ratio] 5.2 {ratio} <5.0 [facility] Triglyceride [Mass/volume] i n Serum or PlasmaOrdered By: Papo Lucio on 03-02-2023 Triglyceride [Mass/Vol] 171 mg/dL 0-149 [facility] Comment on above: TRIG ATP III CLASSIF ICATIONTRIG less than 150 mg/dL NormalTRIG 150-199 mg/dL Borderline highTRIG 200-500 mg/dL High TRIG greater than 500 mg/dL Very highStandard traceable to the Center for Disease Conrtrol and Prevention (CDC) test method. CBC AUTO DIFFon 03-01-2023 BASO # 0.1 103/ul Normal 0.0-0.1 [facility] Comment on above: Performed By: #### C BC #### [facility] [address] [address] [address] Will Bain Basophils/100 WBC (Bld) 0.6 % Normal 0.2-2.0 [facility] Comment on above: Performed By: #### C BC #### [facility] [address], [place] [address] Dr. Will Bain EO # 0.3 103/ul Normal 0.0-0.7 [facility] Comment on above: Performed By: #### C BC #### [facility] [address] [place] [address] Dr. Will Bain Eosinophils/100 WBC (Bld) 3.5 % Normal 0.9-7.0 [facility] Comment on above: Performed By: #### C BC #### [facility] [address] [place] [address] Dr. Will Bain Erythrocyte distribution width (RBC) [Ratio] 12.9 % Normal 11.0-15.0 [facility] Comment on above: Performed By: #### C BC #### [facility] [address] [place] [address] Dr. Will Bain Hematocrit (Bld) [Volume fraction] 40.4 % Critically low 42.0-54.0 [facility] Comment on above: Performed By: #### C BC #### [facility] [address] [place] [address] Dr. Will Bain Hemoglobin (Bld) [Mass/Vol] 13.5 g/dL Critically low 14.0-18.0 [facility] Comment on above: Performed By: #### C BC #### [facility] [address] [place] [address] Dr. Will Bain IG # 0.02 10e3/ul Normal 0.00-0.03 [facility] Comment on above: Performed By: #### C BC #### [facility] [address] [place] [address] Dr. Will Bain IG % 0.2 % Normal 0.0-0.5 [facility] Comment on above: Performed By: #### C BC #### [facility] [address] [place] [address] Dr. Will Bain LYMPH # 2.3 103/ul Normal 1.2-3.8 [facility] Comment on above: Performed By: #### C BC #### [facility] [address] [place] [address] Dr. Will Bain Lymphocytes/100 WBC (Bld) 27.8 % Normal 20.5-60.0 [facility] Comment on above: Performed By: #### C BC #### [facility] [address] [place] [address] Dr. Will Bain MANUAL DIFF REQ NO Normal [facility] Comment on above: Performed By: #### C BC #### [facility] [address] [place] [address] Dr. Will Bain MCH (RBC) [Entitic mass] 29.9 pg Normal 25.9-34.0 [facility] Comment on above: Performed By: #### C BC #### [facility] [address] [place] [address] Dr. Will Bain MCHC (RBC) [Mass/Vol] 33.4 g/dL Normal 29.9-35.2 [facility] Comment on above: Performed By: #### C BC #### [facility] [address] [place] [address] Dr. Will Bain MCV (RBC) [Entitic vol] 89.6 fL Normal 80.0-94.0 [facility] Comment on above: Performed By: #### C BC #### [facility] [address] [place] [address] Dr. Will Bain MONO # 0.9 103/ul Critically high 0.3-0.8 [facility] Comment on above: Performed By: #### C BC #### [facility] [address] [place] [address] Dr. Will Bain Monocytes/100 WBC (Bld) 10.3 % Normal 1.7-12.0 [facility] Comment on above: Performed By: #### C BC #### [facility] [address] [place] [address] Dr. iWll Bain NEUT # 4.7 103/ul Normal 1.4-6.5 [facility] Comment on above: Performed By: #### C BC #### [facility] [address] [place] [address] Dr. Will Bain Neutrophils/100 WBC (Bld) 57.6 % Normal 43.0-75.0 [facility] Comment on above: Performed By: #### C BC #### [facility] [address], [place] [address] Dr. Will Bain Platelet mean volume (Bld) [Entitic vol] 9.3 fL Critically low 9.5-13.5 [facility] Comment on above: Performed By: #### C BC #### [facility] [address], [place] [address] Dr. Will Bain PLT 273 103/ul Normal 150-450 [facility] Comment on above: Performed By: #### C BC #### [facility] [address], [place] [address] Dr. Will Bain RBC 4.51 106/ul Critically low 4.70-6.10 [facility] Comment on above: Performed By: #### C BC #### [facility] [address] [address] [address] Will Bain WBC 8.2 103/ul Normal 4.0-11.0 [facility] Comment on above: Performed By: #### C BC #### [facility] [address] [address] [address] Will Bain MG MAMM DIAGNOSTIC 3D RO CA Don 03-01-2023 MG MAMM DIAGNOSTIC 3D RO CAD Patient: VICK MERCADO Exam Date: 03/01/2023 : 1955 Gender:M Ordering : DR JAIRO CORBIN D.O. Admission #: [id number] Family : Order #: [id number] CLICK HERE TO VIEW EXAM RADIOLOGY REPORT PROCEDURE: MAMMOGRAM DIAGNOSTIC 3D BILATERAL CAD, 03/01/2023, 10:22 ULTRASOUND BREAST LEFT LIMITED, 03/01/2023, 11:05 COMPARISON: None. INDICATIONS: Hypertrophy of breast Calculator Name NCI Breast Cancer Risk Assessment Tool 5 Year Breast Cancer Risk Not Applicable. Lifetime Breast Cancer Risk Not Applicable. Personal Breast Cancer No Personal Ovarian Cancer No Treatments None Family Cancers None LOCATION: [facility] BREAST COMPOSITION: Almost entirely fatty. FINDINGS: DIAGNOSTIC CATEGORY 2--BENIGN FINDING: RIGHT BREAST: No significant suspicious finding. LEFT BREAST: Asymmetrically increased left retroareolar density having the appearance of normal fibroglandular tissue. Similar appearance identified ultrasound. No focal mass is observed. RECOMMENDATIONS: Findings consistent with unilateral left gynecomastia CLINICAL EVALUATION. PLEASE NOTE: A NORMAL MAMMOGRAM DOES NOT EXCLUDE THE POSSIBILITY OF BREAST CANCER. A CLINICALLY SUSPICIOUS PALPABLE LUMP SHOULD BE BIOPSIED. Dictated by: Iván Barba MD on 03/01/2023 at 12:11 Approved by: Iván Barba MD on 03/01/2023 at 12:13 Normal [facility] PROF CHEM 8 (BAS METB)on Anion gap [Moles/Vol] 13.8 mmol/L Normal [facility] Comment on above: Performed By: #### A LT, AST, BMP #### [facility] [address] [place] [address] Dr. Will Bain Calcium [Mass/Vol] 9.0 mg/dL Normal 8.5-10.1 [facility] Comment on above: Performed By: #### A LT, AST, BMP #### [facility] [address] [place] [address] Dr. Will Bain Chloride [Moles/Vol] 101 mmol/L Normal 98-107 [facility] Comment on above: Performed By: #### A LT, AST, BMP #### [facility] [address] [place] [address] Dr. Will Bain CO2 [Moles/Vol] 26.6 mmol/L Normal 21.0-32.0 [facility] Comment on above: Performed By: #### A LT, AST, BMP #### [facility] [address] [place] [address] Dr. Will Bain Creatinine [Mass/Vol] 0.92 mg/dL Normal 0.70-1.30 [facility] Comment on above: Performed By: #### A LT, AST, BMP #### [facility] [address] [place] [address] Dr. Will Bain EGFR-AF ERITREAN >60 Normal >=60 [facility] Comment on above: Performed By: #### A LT, AST, BMP #### [facility] [address] [place] [address] Dr. Will Bain EGFR-NON AF ERITREAN >60 Normal >=60 [facility] Comment on above: Performed By: #### A LT, AST, BMP #### [facility] [address] [address] [address] Will Bain Glucose [Mass/Vol] 121 mg/dL Critically high 74-106 [facility] Comment on above: Performed By: #### A LT, AST, BMP #### [facility] [address] [place] [address] Dr. Will Bain Potassium [Moles/Vol] 4.4 mmol/L Normal 3.5-5.1 [facility] Comment on above: Performed By: #### A LT, AST, BMP #### [facility] [address] [place] [address] Dr. Will Bain Sodium [Moles/Vol] 137 mmol/L Normal 136-145 [facility] Comment on above: Performed By: #### A LT, AST, BMP #### [facility] [address] [place] [address] Dr. Will Bain Urea nitrogen [Mass/Vol] 21.0 mg/dL Critically high 7.0-18.0 [facility] Comment on above: Performed By: #### A LT, AST, BMP #### [facility] [address] [place] [address] Dr. Will Bain Urea nitrogen/Creatinine [Mass ratio] 22.8 mg/mg Normal [facility] Comment on above: Performed By: #### A LT, AST, BMP #### [facility] [address] [place] [address] Dr. Will Bain SGOTon 03-01-2023 AST [Catalytic activity/Vol] 24 U/L Normal 15-37 [facility] Comment on above: Performed By: #### A LT, AST, BMP ####[facility] [address] [address]Dr[address] Will ALONSOPTon 03-01-2023 ALT [Catalytic activity/Vol] 31 U/L Normal 16-63 [facility] Comment on above: Performed By: #### A LT, AST, BMP #### [facility] [address] [place] [address] Dr. Will Bain US BREAST LEFT LIMITEDon US BREAST LEFT LIMITED Patient: VICK OLIVEIRA AM Exam Date: 03/01/2023 : 1955 Gender:M Ordering : DR JAIRO CORBIN D.O. Admission #: [id number] Family : Order #: [id number] CLICK HERE TO VIEW EXAM RADIOLOGY REPORT PROCEDURE: MAMMOGRAM DIAGNOSTIC 3D BILATERAL CAD, 03/01/2023, 10:22 ULTRASOUND BREAST LEFT LIMITED, 03/01/2023, 11:05 COMPARISON: None. INDICATIONS: Hypertrophy of breast Calculator Name NCI Breast Cancer Risk Assessment Tool 5 Year Breast Cancer Risk Not Applicable. Lifetime Breast Cancer Risk Not Applicable. Personal Breast Cancer No Personal Ovarian Cancer No Treatments None Family Cancers None LOCATION: [facility] BREAST COMPOSITION: Almost entirely fatty. FINDINGS: DIAGNOSTIC CATEGORY 2--BENIGN FINDING: RIGHT BREAST: No significant suspicious finding. LEFT BREAST: Asymmetrically increased left retroareolar density having the appearance of normal fibroglandular tissue. Similar appearance identified ultrasound. No focal mass is observed. RECOMMENDATIONS: Findings consistent with unilateral left gynecomastia CLINICAL EVALUATION. PLEASE NOTE: A NORMAL MAMMOGRAM DOES NOT EXCLUDE THE POSSIBILITY OF BREAST CANCER. A CLINICALLY SUSPICIOUS PALPABLE LUMP SHOULD BE BIOPSIED. Dictated by: Iván Barba MD on 03/01/2023 at 12:11 Approved by: Iván Barba MD on 03/01/2023 at 12:13 Normal [facility] Basic Metabolic Panelon 05-2 Anion gap [Moles/Vol] Not performed Normal 6.0-15.0 [facility] Comment on above: Performed By: #### B MP, MG ####[facility] Calcium [Mass/Vol] 9.3 mg/dL Normal 8.6-10.3 [facility] Comment on above: Performed By: #### B MP, MG ####[facility] [place] [id number] [facility] Chloride [Moles/Vol] 100 mmol/L Normal 98-107 [facility] Comment on above: Performed By: #### B MP, MG ####[facility] [id number] [facility] CO2 [Moles/Vol] 28.4 mmol/L Normal 21.0-31.0 [facility] Comment on above: Performed By: #### B MP, MG ####[address] Creatinine [Mass/Vol] 0.81 mg/dL Normal 0.70-1.30 [facility] Comment on above: Performed By: #### B MP, MG ####[address] Creatinine Clr Calc Pharmacy 90.12 Normal [facility] Comment on above: Performed By: #### B MP, MG ####[place] [id number] GFR/1.73 sq M.predicted MDRD (S/P/Bld) [Vol rate/Area] mL/min/{1.73_m2} Normal [facility] Comment on above: Performed By: #### B MP, MG ####[address] Glucose [Mass/Vol] 110 mg/dL High 70-100 [facility] Comment on above: Result Comment: [facility] Glucose Reference Range is dependent on time and content of last meal. Glucose of more than 200 mg/dL in a nonstressed, ambulatory subject supports the diagnosis of Diabetes Mellitus. ADA recommended reference range Performed By: #### B MP, MG ####[address] Potassium Normal 3.5-5.1 [facility] Comment on above: Result Comment: Spec imen hemolyzed, redraw requested Performed By: #### B MP, MG ####[address] Sodium Normal 136-145 [facility] Comment on above: Result Comment: Spec imen hemolyzed, redraw requested Performed By: #### B MP, MG ####[address] Urea nitrogen [Mass/Vol] 25 mg/dL Normal 7-25 [facility] Comment on above: Performed By: #### B MP, MG ####[facility] [place] [id number] [facility] Calcium [Mass/volume] in Ser um or PlasmaOrdered By: Brad Livingston on 02-25-2023 Calcium [Mass/Vol] 9.3 mg/dL 8.6-10.3 [facility] Carbon dioxide, total [Moles /volume] in Serum or PlasmaOrdered By: Brad Livingston on 02-25-2023 CO2 [Moles/Vol] 28.4 mmol/L 21.0-31.0 [facility] Chloride [Moles/volume] in S zina or PlasmaOrdered By: Brad Livingston on 02-25-2023 Chloride [Moles/Vol] 100 mmol/L 98-107 [facility] Creatinine [Mass/volume] in Serum or PlasmaOrdered By: Brad Livingston on 02-25-2023 Creatinine [Mass/Vol] 0.81 mg/dL 0.70-1.30 [facility] Glucose [Mass/volume] in Ser um or PlasmaOrdered By: Brad Livingston on 02-25-2023 Glucose [Mass/Vol] 110 mg/dL 70-100 [facility] Comment on above: ADA recommended refe rence rangeRandom Glucose Reference Range is dependent on time and content of last meal. Glucose of more than 200 mg/dL in a nonstressed, ambulatory subject supports the diagnosis of Diabetes Mellitus. Magnesiumon 02-25-2023 Magnesium Normal 1.9-2.7 [facility] Comment on above: Result Comment: Spec imen hemolyzed, redraw requested PERFORMED BY: [facility] [address] [place] [id number] PATHOLOGIST COMPOUNDING ASSISTANT ION THOMPSON M.D. Performed By: #### B MP, MG ####[facility] [address] [id number] [facility] Magnesium [Mass/volume] in S zina or PlasmaOrdered By: Brad Livingston on 02-25-2023 Magnesium [Mass/Vol] 2.3 mg/dL 1.9-2.7 [facility] No Panel InformationOrdered By: Brad Livingston on 02-25-2023 Estimated GFR (CKD-EPI) > 60.0 mL/Min [facility] Creatinine Clearance (Chem 90.12 [facility] Potassium [Moles/volume] in Serum or PlasmaOrdered By: Brad Livingston on 02-25-2023 Potassium [Moles/Vol] 4.3 mmol/L 3.5-5.1 [facility] Redraw Magnesiumon 3 Magnesium [Mass/Vol] 2.3 mg/dL Normal 1.9-2.7 [facility] Comment on above: Result Comment: PERF ORMED BY: [facility] [address] [place] [address] PATHOLOGIST COMPOUNDING ASSISTANT ION THOMPSON M.D. Performed By: #### R EDRAW MG, REDRAW K, REDRAW NA ####[address] Redraw Potassiumon 3 Potassium [Moles/Vol] 4.3 mmol/L Normal 3.5-5.1 [facility] Comment on above: Performed By: #### R EDRAW MG, REDRAW K, REDRAW NA ####[address] Redraw Sodiumon 02-25-2023 Sodium [Moles/Vol] 137 mmol/L Normal 136-145 [facility] Comment on above: Performed By: #### R EDRAW MG, REDRAW K, REDRAW NA ####[address] Serum or plasma anion gap de terminationOrdered By: Brad Livingston on 02-25-2023 Anion gap [Moles/Vol] TNP [facility] Comment on above: Test not performed Sodium [Moles/volume] in Ser um or PlasmaOrdered By: Brad Livingston on 02-25-2023 Sodium [Moles/Vol] 137 mmol/L 136-145 [facility] Urea nitrogen [Mass/volume] in Serum or PlasmaOrdered By: Brad Livingston on 02-25-2023 Urea nitrogen [Mass/Vol] 25 mg/dL 7 [facility] Basic Metabolic Panelon 02-01 Anion gap [Moles/Vol] 13.2 mmol/L Normal 6.0-15.0 [facility] Comment on above: Performed By: #### M G, CBC, HS TROP, BMP ####[address] Calcium [Mass/Vol] 9.5 mg/dL Normal 8.6-10.3 [facility] Comment on above: Performed By: #### M G, CBC, HS TROP, BMP ####[address] Chloride [Moles/Vol] 103 mmol/L Normal 98-107 [facility] Comment on above: Performed By: #### M G, CBC, HS TROP, BMP ####[address] CO2 [Moles/Vol] 27.5 mmol/L Normal 21.0-31.0 [facility] Comment on above: Performed By: #### M G, CBC, HS TROP, BMP ####[address] Creatinine [Mass/Vol] 0.79 mg/dL Normal 0.70-1.30 [facility] Comment on above: Performed By: #### M G, CBC, HS TROP, BMP ####[address] Creatinine Clr Calc Pharmacy 101.40 Normal [facility] Comment on above: Performed By: #### M G, CBC, HS TROP, BMP ####[place] [id number] [facility] GFR/1.73 sq M.predicted MDRD (S/P/Bld) [Vol rate/Area] mL/min/{1.73_m2} Normal [facility] Comment on above: Performed By: #### M G, CBC, HS TROP, BMP ####[place] [id number] Glucose [Mass/Vol] 117 mg/dL High 70-100 [facility] Comment on above: Result Comment: [place] Glucose Reference Range is dependent on time and content of last meal. Glucose of more than 200 mg/dL in a nonstressed, ambulatory subject supports the diagnosis of Diabetes Mellitus. ADA recommended reference range Performed By: #### M G, CBC, HS TROP, BMP ####[address] Potassium [Moles/Vol] 3.7 mmol/L Normal 3.5-5.1 [facility] Comment on above: Performed By: #### M G, CBC, HS TROP, BMP ####[place] [id number] Sodium [Moles/Vol] 140 mmol/L Normal 136-145 [facility] Comment on above: Performed By: #### M G, CBC, HS TROP, BMP ####[address] Urea nitrogen [Mass/Vol] 14 mg/dL Normal 7-25 [facility] Comment on above: Performed By: #### M G, CBC, HS TROP, BMP ####[address] Basophils Auto (Bld) [#/Vol] Ordered By: Mirna Aldridge on 02-24-2023 Basophils (Bld) [#/Vol] 0.1 10*3/uL 0.0-0.2 [facility] Basophils/100 WBC Auto (Bld) Ordered By: Mirna Aldridge on 02-24-2023 Basophils/100 WBC (Bld) 0.6 % . [facility] Complete Blood Count Auto Di ffon 02-24-2023 Basophils (Bld) [#/Vol] 0.1 10*3/uL Normal 0.0-0.2 [facility] Comment on above: Result Comment: PERF ORMED BY: [facility] [address] [place] [address] PATHOLOGIST COMPOUNDING ASSISTANT ION THOMPSON M.D. Performed By: #### M G, CBC, HS TROP, BMP ####[address] Basophils/100 WBC (Bld) 0.6 % Normal . [facility] Comment on above: Performed By: #### M G, CBC, HS TROP, BMP ####[address] Eosinophils (Bld) [#/Vol] 0.3 10*3/uL Normal 0.0-0.45 [facility] Comment on above: Performed By: #### M G, CBC, HS TROP, BMP ####[address] Eosinophils/100 WBC (Bld) 3.0 % Normal . [facility] Comment on above: Performed By: #### M G, CBC, HS TROP, BMP ####[address] Erythrocyte distribution width (RBC) [Ratio] 13.3 % Normal 12.0-14.8 [facility] Comment on above: Performed By: #### M G, CBC, HS TROP, BMP ####[address] Hematocrit (Bld) [Volume fraction] 39.3 % Normal 38.8-50.0 [facility] Comment on above: Performed By: #### M G, CBC, HS TROP, BMP ####[address] Hemoglobin (Bld) [Mass/Vol] 13.4 g/dL Normal 13.0-17.0 [facility] Comment on above: Performed By: #### M G, CBC, HS TROP, BMP ####[address] Lymphocytes (Bld) [#/Vol] 2.4 10*3/uL Normal 1.00-4.8 [facility] Comment on above: Performed By: #### M G, CBC, HS TROP, BMP ####[address] Lymphocytes/100 WBC (Bld) 20.9 % Normal . [facility] Comment on above: Performed By: #### M G, CBC, HS TROP, BMP ####[address] MCH (RBC) [Entitic mass] 30.2 pg Normal 27.5-35.2 [facility] Comment on above: Performed By: #### M G, CBC, HS TROP, BMP ####[address] MCV (RBC) [Entitic vol] 88.4 fL Normal 83.5-101 [facility] Comment on above: Performed By: #### M G, CBC, HS TROP, BMP ####[address] Mean Corpuscular HGB Conc 34.2 g/dL Normal 32.5-35.6 [facility] Comment on above: Performed By: #### M G, CBC, HS TROP, BMP ####[address] Monocytes (Bld) [#/Vol] 1.0 10*3/uL High 0.0-0.8 [facility] Comment on above: Performed By: #### M G, CBC, HS TROP, BMP ####[address] Monocytes/100 WBC (Bld) 9.1 % Normal . [facility] Comment on above: Performed By: #### M G, CBC, HS TROP, BMP ####[address] Neutrophils (Bld) [#/Vol] 7.6 10*3/uL Normal 1.8-7.7 [facility] Comment on above: Performed By: #### M G, CBC, HS TROP, BMP ####[place] [id number] [facility] Neutrophils/100 WBC (Bld) 66.4 % Normal . [facility] Comment on above: Performed By: #### M G, CBC, HS TROP, BMP ####[address] NRBC% 0.1 /100{WBC} Normal 0-0.5 [facility] Comment on above: Performed By: #### M G, CBC, HS TROP, BMP ####[place] [id number] [facility] Platelet mean volume (Bld) [Entitic vol] 7.7 fL Normal 6.6-10.1 [facility] Comment on above: Performed By: #### M G, CBC, HS TROP, BMP ####[place] [id number] [facility] Platelets (Bld) [#/Vol] 267 10*3/uL Normal 150-450 [facility] Comment on above: Performed By: #### M G, CBC, HS TROP, BMP ####[address] RBC (Bld) [#/Vol] 4.44 10*6/uL Normal 3.90-5.60 [facility] Comment on above: Performed By: #### M G, CBC, HS TROP, BMP ####[place] [id number] [facility] WBC (Bld) [#/Vol] 11.5 10*3/uL High 4.1-10.5 [facility] Comment on above: Performed By: #### M G, CBC, HS TROP, BMP ####[place] [id number] [facility] ECG 12 lead ECGon 02-24-2023 ECG 12 lead ECG [facility] [address] [place] [address] [place] [address] Electrocardiograph Report Signed Patient: Vick Mercado MR#: [id number] : 1955 Acct:[id number] Age/Sex: 67 / M ADM Date: 02/23/23 Loc: Room: [address] [place] [address] Type: ADM IN Attending Dr: Brad Livingston DO Ordering Provider: Mirna Aldridge APRN Date of Service: 02/24/23 ECG/ECG 12 lead ECG: congestive 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 Copies to: Test Reason : Blood Pressure : / mmHG Vent. Rate : 082 BPM Atrial Rate : 082 BPM P-R Int : 174 ms QRS Dur : 092 ms QT Int : 456 ms P-R-T Axes : 045 -13 085 degrees QTc Int : 532 ms Sinus rhythm with frequent premature ventricular complexes Nonspecific T wave abnormality Prolonged QT Abnormal ECG When compared with ECG of 23-FEB-2023 20:09, premature ventricular complexes are now present premature atrial complexes are no longer present QT remains prolonged Confirmed by MAIA DAVIS MD ([id number]) on 02/24/2023 8:42:39 AM Referred By: Electronically Signed By:MAIA DAVIS MD Transcribed By: MUS Signed By Maia Davis MD 0842 Normal [facility] echo transthoracicon [facility] echo transthoracic [facility] [place] [address] Echocardiogram Signed Patient: Vick Mercado MR#: [id number] : 1955 Acct:[id number] Age/Sex: 67 / M ADM Date: 02/23/23 Loc: Room: [address] [place] [address] Type: ADM IN Attending Dr: Brad Livingston DO Ordering Provider: Mirna Aldridge APRN Date of Service: 02/24/23 [facility] echo transthoracic: congestive 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 Copies to: Kings Banegas MD, FACC Mirna Aldridge, PEDIATRIC PHYSICIAN ASSISTANT Height: 70 in Weight: 206 lb Performed By: PAIGE Dean BSA: 2.1 m2 BP: 137/89 mmHg HR: 70 Reason For Study: congestive 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 History: Hypertension Interpretation Summary The left ventricular size and thickness are normal. There are regional wall motion abnormalities as specified. Moderate to severe hypokinesis involving the inferolateral and basal septal villar suggestive of coronary disease in the territory of the left circumflex and/or RCA Ejection Fraction = 40-45%. The left atrium appears mildly dilated. There is no prior echocardiogram noted for this patient. Procedure/Quality: A two-dimensional transthoracic echocardiogram with color flow, Doppler and injection of contrast agent Definity was performed. The study was technically good in quality. There is no prior echocardiogram noted for this patient. Left Ventricle: The left ventricular size and thickness are normal. Ejection Fraction = 40-45%. There are regional wall motion abnormalities as specified. Moderate to severe hypokinesis involving the inferolateral and basal septal villar suggestive of coronary disease in the territory of the left circumflex and/or RCA. Left Atrium: The left atrium appears mildly dilated. The atrial septum appears normal. Right Atrium: The right atrium appears normal in size. Right Ventricle: The right ventricular size, thickness and function are normal. Aortic Valve: The aortic valve is mildly sclerotic. Mitral Valve: The mitral valve is mildly sclerotic. Tricuspid Valve: The tricuspid valve is normal. There is trace tricuspid regurgitation. Pulmonic Valve: The pulmonic valve is not well seen, but is grossly normal. Arteries: The aortic root is normal size. Pericardium/Pleura: No pericardial effusion seen. There is no pleural effusion. IVC/Hepatic Viens: The inferior vena cava is normal in size, with a normal collapsibility index. Miscellaneous: No thrombus, vegetation or mass is seen. Measurements with Normals IVSd: 1.0 cm (0.7-1.1 cm)LVIDd: 4.9 cm (3.7-5.4 cm) LVPWd: 1.1 cm (0.7-1.1 cm)LVIDs: 4.0 cm (2.3-3.6 cm) LA dimension: 4.1 cm (2.3-4.0 cm)Ao root diam: 3.3 cm(2.0-3.6 cm) asc Aorta Diam: 3.2 cm(2.1-3.4cm) Doppler with Normals RVSP(TR): 26.8 mmHg (18-35mmHg) MV E max lucius: 122.0 cm/sec(0.8-1.3m/s) MV A max lucius: 27.6 cm/sec (0.0-0.0m/s) MV E/A: 4.4 (<1.5) MMode/2D Measurements Calculations RVDd: 2.7 cm FS: 18.1 % Ao root area: LVOT diam: 2.1 cm RV S Lucius: EDV(Teich): 8.4 cm2 LVOT area: 3.6 cm2 16.2 cm/sec 113.8 ml ESV(Teich): 71.2 ml EF(Teich): 37.4 % __ LVLd ap4: 9.4 cm SV(MOD-sp4): LAV(MOD-sp4): LA A2 area: 23.7 cm2 EDV(MOD-sp4): 100.0 ml 71.6 ml 250.0 ml LAV(MOD-sp2): LA A4 area: 26.3 cm2 LVLs ap4: 8.2 cm 66.7 ml LA length (vol): ESV(MOD-sp4): 7.7 cm 150.0 ml LA vol: 68.6 ml EF(MOD-sp4): 40.0 % LA vol index: 32.5 ml/m2 Doppler Measurements Calculations MV max P.0 mmHg E/E' lat: MR max lucius: TV max P.4 297.4 cm/sec 24.0 mmHg E/E' med: MR max P.8 mmHg 16.0 __ TR max lucius: 243.7 cm/sec TR max P.8 mmHg RAP systole: 3.0 mmHg Transcribed By: SCV Performed At: 02/24/23 1046 Signed By: Kings Banegas MD, [facility] 02/24/23 1546 Normal [facility] Eosinophils Auto (Bld) [#/Vo l]Ordered By: Mirna Aldridge on 02-24-2023 Eosinophils (Bld) [#/Vol] 0.3 10*3/uL 0.0-0.45 [facility] Eosinophils/100 WBC Auto (Bl d)Ordered By: Mirna Aldridge on 02-24-2023 Eosinophils/100 WBC (Bld) 3.0 % . [facility] Erythrocyte distribution wid th Auto (RBC) [Ratio]Ordered By: Mirna Aldirdge on 02-24-2023 Erythrocyte distribution width (RBC) [Ratio] 13.3 % 12.0-14.8 [facility] Hematocrit Auto (Bld) [Volum e fraction]Ordered By: Mirna Aldridge on 02-24-2023 Hematocrit (Bld) [Volume fraction] 39.3 % 38.8-50.0 [facility] Hemoglobin [Mass/volume] in BloodOrdered By: Mirna Aldridge on 02-24-2023 Hemoglobin (Bld) [Mass/Vol] 13.4 g/dL 13.0-17.0 [facility] Leukocytes [#/volume] correc rehan for nucleated erythrocytes in Blood by Automated counOrdered By: Mirna Aldridge on 02-24-2023 WBC corrected for nucl RBC Auto (Bld) [#/Vol] 11.5 10*3/uL 4.1-10.5 [facility] Lymphocytes Auto (Bld) [#/Vo l]Ordered By: Mirna Aldridge on 02-24-2023 Lymphocytes (Bld) [#/Vol] 2.4 10*3/uL 1.00-4.8 [facility] Lymphocytes/100 WBC Auto (Bl d)Ordered By: Mirna Aldridge on 02-24-2023 Lymphocytes/100 WBC (Bld) 20.9 % . [facility] MCH Auto (RBC) [Entitic mass ]Ordered By: Mirna Aldridge on 02-24-2023 MCH (RBC) [Entitic mass] 30.2 pg 27.5-35.2 [facility] MCHC Auto (RBC) [Mass/Vol]Or dered By: Mirna Aldridge on 02-24-2023 MCHC (RBC) [Mass/Vol] 34.2 g/dL 32.5-35.6 [facility] MCV Auto (RBC) [Entitic vol] Ordered By: Mirna Aldridge on 02-24-2023 MCV (RBC) [Entitic vol] 88.4 fL 83.5-101 [facility] Magnesiumon 02-24-2023 Magnesium [Mass/Vol] 2.2 mg/dL Normal 1.9-2.7 [facility] Comment on above: Result Comment: PERF ORMED BY: [facility] [address] [place] [id number] PATHOLOGIST COMPOUNDING ASSISTANT ION THOMPSON M.D. Performed By: #### M G, CBC, HS TROP, BMP ####[facility] [id number] [place] [address] [facility] Monocytes Auto (Bld) [#/Vol] Ordered By: Mirna Aldridge on 02-24-2023 Monocytes (Bld) [#/Vol] 1.0 10*3/uL 0.0-0.8 [facility] Monocytes/100 WBC Auto (Bld) Ordered By: Mirna Aldridge on 02-24-2023 Monocytes/100 WBC (Bld) 9.1 % . [facility] Neutrophils Auto (Bld) [#/Vo l]Ordered By: Mirna Aldridge on 02-24-2023 Neutrophils (Bld) [#/Vol] 7.6 10*3/uL 1.8-7.7 [facility] Neutrophils/100 WBC Auto (Bl d)Ordered By: Mirna Aldridge on 02-24-2023 Neutrophils/100 WBC (Bld) 66.4 % . [facility] Nucleated erythrocytes [Pres ence] in Blood by Automated countOrdered By: Mirna Aldridge on 02-24-2023 Nucleated RBC Auto Ql (Bld) 0.1 /100{WBC} 0-0.5 [facility] Platelet mean volume Auto (B ld) [Entitic vol]Ordered By: Mirna Aldridge on 02-24-2023 Platelet mean volume (Bld) [Entitic vol] 7.7 fL 6.6-10.1 [facility] Platelets Auto (Bld) [#/Vol] Ordered By: Mirna Aldridge on 02-24-2023 Platelets (Bld) [#/Vol] 267 10*3/uL 150-450 [facility] RBC Auto (Bld) [#/Vol]Ordere d By: Mirna Aldridge on 02-24-2023 RBC (Bld) [#/Vol] 4.44 10*6/uL 3.90-5.60 [facility] Troponin I High Sensitivityo n 02-24-2023 Troponin I High Sensitivity 27.8 pg/mL High 0.0-20.0 [facility] Comment on above: Result Comment: PERF ORMED BY: [facility] [address] [place] [address] PATHOLOGIST COMPOUNDING ASSISTANT ION THOMPSON M.D. Performed By: #### M G, CBC, HS TROP, BMP ####[facility] [id number] [place] [address] Troponin I High Sensitivity 25.9 pg/mL High 0.0-20.0 [facility] Comment on above: Result Comment: PERF ORMED BY: [facility] [address] [place] [address] PATHOLOGIST COMPOUNDING ASSISTANT ION THOMPSON M.D. Performed By: #### H S TROP #### [facility] [address] [place] [address] Troponin I High Sensitivity 27.4 pg/mL High 0.0-20.0 [facility] Comment on above: Result Comment: PERF ORMED BY: [facility] [address] [place] [address] PATHOLOGIST COMPOUNDING ASSISTANT ION THOMPSON M.D. Performed By: #### H S TROP ####[facility] [id number] [place] [address] Troponin I.cardiac [Mass/vol ume] in Serum or Plasma by Detection limit <= 0.01 ng/Ordered By: Mirna Aldridge on 02-24-2023 Troponin I.cardiac DL <= 0.01 ng/mL [Mass/Vol] 27.8 pg/mL 0.0-20.0 [facility] WBC Auto (Bld) [#/Vol]Ordere d By: Mirna Aldridge on 02-24-2023 WBC (Bld) [#/Vol] 11.5 10*3/uL 4.1-10.5 [facility] B-Type Natriuretic Peptideon 02-23-2023 Natriuretic peptide B (Bld) [Mass/Vol] 532.0 pg/mL High 5-100 [facility] Comment on above: Result Comment: PERF ORMED BY: [facility] [place] [address] PATHOLOGIST COMPOUNDING ASSISTANT ION THOMPSON M.D. Performed By: #### B MP, HS TROP, BNP ####[place] [id number] [facility] Basic Metabolic Panelon 052 Anion gap [Moles/Vol] 14.5 mmol/L Normal 6.0-15.0 [facility] Comment on above: Performed By: #### B MP, HS TROP, BNP ####[place] [id number] [facility] Calcium [Mass/Vol] 9.8 mg/dL Normal 8.6-10.3 [facility] Comment on above: Performed By: #### B MP, HS TROP, BNP ####[place] [id number] [facility] Chloride [Moles/Vol] 103 mmol/L Normal 98-107 [facility] Comment on above: Performed By: #### B MP, HS TROP, BNP ####[place] [id number] [facility] CO2 [Moles/Vol] 25.5 mmol/L Normal 21.0-31.0 [facility] Comment on above: Performed By: #### B MP, HS TROP, BNP ####[place] [id number] [facility] Creatinine [Mass/Vol] 0.78 mg/dL Normal 0.70-1.30 [facility] Comment on above: Performed By: #### B MP, HS TROP, BNP ####[place] [phone] [place] Creatinine Clr Cal[facility] 101.40 Normal [facility] Comment on above: Result Comment: PERF ORMED BY: [facility] [address] [place] [address] PATHOLOGIST COMPOUNDING ASSISTANT ION THOMPSON M.D. Performed By: #### B MP, HS TROP, BNP ####[place] [id number] [place] [phone] [facility] GFR/1.73 sq M.predicted MDRD (S/P/Bld) [Vol rate/Area] mL/min/{1.73_m2} Normal [facility] Comment on above: Performed By: #### B MP, HS TROP, BNP ####[place] [id number] [place] [phone] [facility] Glucose [Mass/Vol] 127 mg/dL High 70-100 [facility] Comment on above: Result Comment: [facility] Glucose Reference Range is dependent on time and content of last meal. Glucose of more than 200 mg/dL in a nonstressed, ambulatory subject supports the diagnosis of Diabetes Mellitus. ADA recommended reference range Performed By: #### B MP, HS TROP, BNP ####[place] [id number] [place] [phone] [facility] Potassium [Moles/Vol] 4.0 mmol/L Normal 3.5-5.1 [facility] Comment on above: Performed By: #### B MP, HS TROP, BNP ####[place] [phone] [facility] Sodium [Moles/Vol] 139 mmol/L Normal 136-145 [facility] Comment on above: Performed By: #### B MP, HS TROP, BNP ####[place] [id number] [facility] Urea nitrogen [Mass/Vol] 15 mg/dL Normal 7-25 [facility] Comment on above: Performed By: #### B MP, HS TROP, BNP ####[place] [id number] [facility] Complete Blood Count Auto Di ffon 02-23-2023 Basophils (Bld) [#/Vol] 0.1 10*3/uL Normal 0.0-0.2 [facility] Comment on above: Order Comment: Unacc eptable specimen due to CLOTTING. Redraw reordered. Result Comment: PERF ORMED BY: [facility] [address] [place] [id number] PATHOLOGIST COMPOUNDING ASSISTANT ION THOMPSON M.D. Performed By: #### C BC ####[address] Basophils/100 WBC (Bld) 0.6 % Normal . [facility] Comment on above: Order Comment: Unacc eptable specimen due to CLOTTING. Redraw reordered. Performed By: #### C BC ####[address] Eosinophils (Bld) [#/Vol] 0.2 10*3/uL Normal 0.0-0.45 [facility] Comment on above: Order Comment: Unacc eptable specimen due to CLOTTING. Redraw reordered. Performed By: #### C BC ####[address] Eosinophils/100 WBC (Bld) 1.6 % Normal . [facility] Comment on above: Order Comment: Unacc eptable specimen due to CLOTTING. Redraw reordered. Performed By: #### C BC ####[address] Erythrocyte distribution width (RBC) [Ratio] 13.5 % Normal 12.0-14.8 [facility] Comment on above: Order Comment: Unacc eptable specimen due to CLOTTING. Redraw reordered. Performed By: #### C BC ####[address] Hematocrit (Bld) [Volume fraction] 39.1 % Normal 38.8-50.0 [facility] Comment on above: Order Comment: Unacc eptable specimen due to CLOTTING. Redraw reordered. Performed By: #### C BC ####[address] Hemoglobin (Bld) [Mass/Vol] 13.3 g/dL Normal 13.0-17.0 [facility] Comment on above: Order Comment: Unacc eptable specimen due to CLOTTING. Redraw reordered. Performed By: #### C BC ####[address] [address] [place] Lymphocytes (Bld) [#/Vol] 1.8 10*3/uL Normal 1.00-4.8 [facility] Comment on above: Order Comment: Unacc eptable specimen due to CLOTTING. Redraw reordered. Performed By: #### C BC ####[address] Lymphocytes/100 WBC (Bld) 15.3 % Normal . [facility] Comment on above: Order Comment: Unacc eptable specimen due to CLOTTING. Redraw reordered. Performed By: #### C BC ####[address] MCH (RBC) [Entitic mass] 29.9 pg Normal 27.5-35.2 [facility] Comment on above: Order Comment: Unacc eptable specimen due to CLOTTING. Redraw reordered. Performed By: #### C BC ####[address] MCV (RBC) [Entitic vol] 87.9 fL Normal 83.5-101 [facility] Comment on above: Order Comment: Unacc eptable specimen due to CLOTTING. Redraw reordered. Performed By: #### C BC ####[address] Mean Corpuscular HGB Conc 34.0 g/dL Normal 32.5-35.6 [facility] Comment on above: Order Comment: Unacc eptable specimen due to CLOTTING. Redraw reordered. Performed By: #### C BC ####[address] Monocytes (Bld) [#/Vol] 0.9 10*3/uL High 0.0-0.8 [facility] Comment on above: Order Comment: Unacc eptable specimen due to CLOTTING. Redraw reordered. Performed By: #### C BC ####[address] Monocytes/100 WBC (Bld) 17.08 % Normal 0.00-20.00 [facility] Comment on above: Order Comment: Unacc eptable specimen due to CLOTTING. Redraw reordered. Performed By: #### C BC ####[address] Monocytes/100 WBC (Bld) 7.5 % Normal . [facility] Comment on above: Order Comment: Unacc eptable specimen due to CLOTTING. Redraw reordered. Performed By: #### C BC ####[address] Neutrophils (Bld) [#/Vol] 8.9 10*3/uL High 1.8-7.7 [facility] Comment on above: Order Comment: Unacc eptable specimen due to CLOTTING. Redraw reordered. Performed By: #### C BC ####[address] Neutrophils/100 WBC (Bld) 75.0 % Normal . [facility] Comment on above: Order Comment: Unacc eptable specimen due to CLOTTING. Redraw reordered. Performed By: #### C BC ####[address] NRBC% 0.1 /100{WBC} Normal 0-0.5 [facility] Comment on above: Order Comment: Unacc eptable specimen due to CLOTTING. Redraw reordered. Performed By: #### C BC ####[address] Platelet mean volume (Bld) [Entitic vol] 7.7 fL Normal 6.6-10.1 [facility] Comment on above: Order Comment: Unacc eptable specimen due to CLOTTING. Redraw reordered. Performed By: #### C BC ####[address] Platelets (Bld) [#/Vol] 277 10*3/uL Normal 150-450 [facility] Comment on above: Order Comment: Unacc eptable specimen due to CLOTTING. Redraw reordered. Performed By: #### C BC ####[address] RBC (Bld) [#/Vol] 4.46 10*6/uL Normal 3.90-5.60 [facility] Comment on above: Order Comment: Unacc eptable specimen due to CLOTTING. Redraw reordered. Performed By: #### C BC ####[place] [id number] [facility] WBC (Bld) [#/Vol] 11.8 10*3/uL High 4.1-10.5 [facility] Comment on above: Order Comment: Unacc eptable specimen due to CLOTTING. Redraw reordered. Performed By: #### C BC ####[address] ECG 12 lead ECGon 02-23-2023 ECG 12 lead ECG [facility] [place] [address] Electrocardiograph Report Signed Patient: Vick Mercado MR#: [id number] : 1955 Acct:[id number] Age/Sex: 67 / M ADM Date: 02/23/23 Loc: Room: [address] [place] [address] Type: ADM IN Attending Dr: Jair Harp MD Ordering Provider: Shalom Germain DO Date of Service: 02/23/23 ECG/ECG 12 lead ECG: Shortness of Breath/Dyspnea Copies to: Test Reason : Blood Pressure : / mmHG Vent. Rate : 107 BPM Atrial Rate : 107 BPM P-R Int : 170 ms QRS Dur : 092 ms QT Int : 366 ms P-R-T Axes : 061 -02 078 degrees QTc Int : 488 ms Sinus tachycardia with premature atrial complexes Confirmed by Shalom Germain DO ([id number]) on 02/24/2023 12:56:42 AM Referred By: Electronically Signed By:Shalom Germain DO Transcribed By: MUS Signed By Shalom Germain DO 0056 Normal [facility] Monocyte distribution width [Entitic volume] in Blood by AutomatedOrdered By: Shalom Germain on 02-23-2023 Monocyte distribution width Auto (Bld) [Entitic vol] 17.08 % 0.00-20.00 [facility] Natriuretic peptide B [Mass/ Vol]Ordered By: Shalom Germain on 02-23-2023 Natriuretic peptide B (Bld) [Mass/Vol] 532.0 pg/mL 5-100 [facility] Troponin I High Sensitivityo n 02-23-2023 Troponin I High Sensitivity 23.7 pg/mL High 0.0-20.0 [facility] Comment on above: Result Comment: PERF ORMED BY: [place] [address] PATHOLOGIST COMPOUNDING ASSISTANT ION THOMPSON M.D. Performed By: #### B MP, HS TROP, BNP ####[address] XR chest 1V portableon 02-23 XR chest 1V portable [facility] Main [place] [address] [place] [address] XRay Report Signed Patient: Vick Mercado MR#: [id number] : 1955 Acct:[id number] Age/Sex: 67 / M ADM Date: 02/23/23 Loc: ER Room: Type: [facility] ER Attending Dr: Copies to: Shalom Germain DO Ordering Provider: Shalom Germain DO Date of Service: 02/23/23 XR/XR chest 1V portable: Shortness of Breath/Dyspnea Plain film chest single view HISTORY: Shortness of breath COMPARISON: None FINDINGS: SUPPORT DEVICES: None POSTSURGICAL CHANGES: Lower cervical spine fixation and bilateral shoulder anchor screws in HEART: Within normal limits PULMONARY HIWOT: Hilar prominence present. MEDIASTINUM: Unremarkable LUNGS AND PLEURA: Perihilar predominant groundglass parenchymal densities. No large pleural effusion or pneumothorax. BONY STRUCTURES: Intact ADDITIONAL FINDINGS None XR/XR chest 1V portable IMPRESSION: Findings suggesting failure. Impression dictated by: Antoni Pizano M.D.02/23/2023 8:57 PM Dictation Location: [place] [address] Transcribed By: [facility] 02/23/232056 Dictated By: Antoni Pizano DO 02/23/232055 Signed By: 02/23/232056 Normal [facility] CT SINUSES WO CONon 02-20-20 CT SINUSES WO CON EXAMINATION: CT SINU SES WO CON HISTORY: Chronic sphenoidal sinusitis COMPARISON: MRI brain 05/22/2022. TECHNIQUE: Contiguous axial CT images of the sinuses obtained without contrast. Coronal and sagittal reconstructions performed. Dose reduction techniques were achieved by using automated exposure control and/or adjustment of mA and/or kV according to patient size and/or use of iterative reconstruction technique. FINDINGS: There is mild mucosal thickening and a 4 mm mucous retention cyst in the left maxillary sinus. Otherwise, the paranasal sinuses are well-aerated without mucosal thickening or air-fluid level There is mild rightward bony nasal septal deviation. There are no acute fracture, destructive lesion or sclerosis of bony structures. The visualized mastoid air cells are well aerated. There is no proptosis. The extraocular muscles are intact. IMPRESSION: No evidence of acute sinusitis. Mild mucoperiosteal thickening and a 4 mm mucous retention cyst in the left maxillary sinus. Otherwise, the paranasal sinuses are clear and well-aerated. Electronically authenticated by: ZARIA BRITT Date: 2023-02-19 18:32 Normal [facility] MRI BRAIN WO CONon 2 MRI BRAIN WO CON EXAMINATION: MRI BRA IN WO CON, 06/01/2022 10:41 AM EDT HISTORY: Amnesia COMPARISON: None. TECHNIQUE: MRI of the brain was performed without IV contrast. FINDINGS: CEREBRUM: No edema, hemorrhage, mass, acute infarction, or inappropriate atrophy. CEREBELLUM: No edema, hemorrhage, mass, acute infarction, or inappropriate atrophy. BRAINSTEM: No edema, hemorrhage, mass, acute infarction, or inappropriate atrophy. CSF SPACES: Ventricles, cisterns, and sulci are appropriate for age. No hydrocephalus, subarachnoid hemorrhage, or mass. SKULL: No mass or other significant visible lesion. SINUSES: Left maxillary mucoperiosteal thickening and 1 cm mucous retention cyst ORBITS: Limited views are unremarkable. OTHER: Negative. IMPRESSION: No acute abnormality. Electronically authenticated by: IVÁN BARBA Date: 2022-06-01 11:35 Normal [facility] TSHon 06-01-2022 TSH 2.078 uIU/mL Normal 0.358-3.74 0 [facility] Comment on above: Performed By: #### T SH #### [facility] [address] [address] [address] Will Bain VITAMIN B12on 06-01-2022 Cobalamin (Vitamin B12) [Mass/Vol] 514.0 pg/mL Normal 193.0-986. 0 [facility] Comment on above: Performed By: #### V ITB12 #### [facility] [address] [address] [address] Will Bain Vital Signs Date Time Vital Sign Value Performing Clinician Facility 01-31-2024 15:43-0400 Body height 177.8 cm [facility] 01-31-2024 15:43-0400 Body mass index (BMI) [Ratio] 31.1 kg/m2 [facility] 01-31-2024 15:43-0400 Body weight 98.48 kg [facility] 01-31-2024 15:43-0400 Diastolic blood pressure 91 mm[Hg] [facility] 01-31-2024 15:43-0400 Heart rate 73 /min [facility] 01-31-2024 15:43-0400 Respiratory rate 12 /min [facility] 01-31-2024 15:43-0400 Systolic blood pressure 161 mm[Hg] [facility] 01-30-2024 14:09-0400 Body height 177.8 cm Mary Neal MD Work Phone: [facility] 01-30-2024 14:09-0400 Body mass index (BMI) [Ratio] 31.57 kg/m2 Mary Neal MD Work Phone: [facility] 01-30-2024 14:09-0400 Body weight 99.79 kg Mary Neal MD Work Phone: [facility] 01-30-2024 14:09-0400 Diastolic blood pressure 62 mm[Hg] Mary Neal MD Work Phone: [facility] 01-30-2024 14:09-0400 Heart rate 58 /min Mary Neal MD Work Phone: [facility] 01-30-2024 14:09-0400 Systolic blood pressure 130 mm[Hg] Mary Neal MD Work Phone: [facility] 11-10-2023 13:53-0500 Body height 179.1 cm Mary Neal MD Work Phone: [facility] 11-10-2023 13:53-0500 Body mass index (BMI) [Ratio] 30.98 kg/m2 Mary Neal MD Work Phone: [facility] 11-10-2023 13:53-0500 Body weight 99.34 kg Mary Neal MD Work Phone: [facility] 11-10-2023 13:53-0500 Diastolic blood pressure 82 mm[Hg] Mary Neal MD Work Phone: [facility] 11-10-2023 13:53-0500 Heart rate 72 /min Mary Neal MD Work Phone: [facility] 11-10-2023 13:53-0500 Systolic blood pressure 120 mm[Hg] Mary Neal MD Work Phone: [facility] 11-01-2023 15:30-0500 Body height 177.8 cm DO Jairo Ball Work Phone: [facility] 11-01-2023 15:30-0500 Body weight 98.88 kg DO Jairo Ball Work Phone: [facility] 11-01-2023 15:30-0500 Diastolic blood pressure 77 mm[Hg] DO Jairo Ball Work Phone: [facility] 11-01-2023 15:30-0500 Systolic blood pressure 117 mm[Hg] DO Jairo Ball Work Phone: [facility] 10-24-2023 15:40-0500 Body temperature 97.6 [degF] DO Jairo Ball Work Phone: [facility] 10-24-2023 15:40-0500 Diastolic blood pressure 76 mm[Hg] DO Jairo Ball Work Phone: [facility] 10-24-2023 15:40-0500 Heart rate 65 /min DO Jairo Ball Work Phone: [facility] 10-24-2023 15:40-0500 Respiratory rate 18 /min DO Jairo Ball Work Phone: [facility] 10-24-2023 15:40-0500 SaO2% (BldA) [Mass fraction] 100 % DO Jairo Ball Work Phone: [facility] 10-24-2023 15:40-0500 Systolic blood pressure 135 mm[Hg] DO Jairo Ball Work Phone: [facility] 10-24-2023 06:00-0500 Body weight 94.1 kg DO Jairo Ball Work Phone: [facility] 10-24-2023 04:00-0500 Inhaled oxygen flow rate 2 L/min DO Jairo Ball Work Phone: [facility] 10-21-2023 18:32-0500 Body height 177.8 cm DO Jairo Ball Work Phone: [facility] 10-21-2023 17:16-0500 Diastolic blood pressure 98 mm[Hg] DO Jairo Ball Work Phone: [facility] 10-21-2023 17:16-0500 Heart rate 96 /min DO Jairo Ball Work Phone: [facility] 10-21-2023 17:16-0500 Respiratory rate 16 /min DO Jairo Ball Work Phone: [facility] 10-21-2023 17:16-0500 SaO2% (BldA) [Mass fraction] 94 % DO Jairo Ball Work Phone: [facility] 10-21-2023 17:16-0500 Systolic blood pressure 146 mm[Hg] DO Jairo Ball Work Phone: [facility] 10-21-2023 14:35-0500 Body temperature 98.6 [degF] DO Jairo Ball Work Phone: [facility] 10-21-2023 14:32-0500 Body height 177.8 cm DO Jairo Ball Work Phone: [facility] 10-21-2023 14:32-0500 Body weight 99.1 kg DO Jairo Ball Work Phone: [facility] 09-29-2023 14:04-0500 Body height 179.1 cm Mary Neal MD Work Phone: [facility] 09-29-2023 14:04-0500 Body mass index (BMI) [Ratio] 31.12 kg/m2 Mary Neal MD Work Phone: [facility] 09-29-2023 14:04-0500 Body weight 99.79 kg Mary Neal MD Work Phone: [facility] 09-29-2023 14:04-0500 Diastolic blood pressure 70 mm[Hg] Mary Neal MD Work Phone: [facility] 09-29-2023 14:04-0500 Heart rate 80 /min Mary Neal MD Work Phone: [facility] 09-29-2023 14:04-0500 Systolic blood pressure 120 mm[Hg] Mary Neal MD Work Phone: [facility] 09-13-2023 15:30-0500 Body height 177.8 cm Jairo Ball Other [facility] 09-13-2023 15:30-0500 Body mass index (BMI) [Ratio] 31.53 kg/m2 Jairo Ball Other [employer] Other 09-13-2023 15:30-0500 Body weight 99.7 kg Jairo Ball Other [facility] [employer] Other 09-13-2023 15:30-0500 Body weight 99.69 kg DO Jairo Ball Work Phone: [facility] 09-13-2023 15:30-0500 Diastolic blood pressure 84 mm[Hg] Jairo Ball Other [facility] 09-13-2023 15:30-0500 Respiratory rate 12 /min Jairo Ball Other [facility] [employer] Other 09-13-2023 15:30-0500 Systolic blood pressure 126 mm[Hg] Jairo Ball Other [facility] 09-05-2023 14:30-0500 Body height 177.8 cm Karlo Aldridge PEDIATRIC PHYSICIAN ASSISTANT-CRUSHER LOADER EQUIPMENT OPERATOR Work Phone: [facility] 09-05-2023 14:30-0500 Body mass index (BMI) [Ratio] 31.42 kg/m2 Karlo Aldridge PEDIATRIC PHYSICIAN ASSISTANT-CRUSHER LOADER EQUIPMENT OPERATOR Work Phone: [facility] 09-05-2023 14:30-0500 Body weight 99.34 kg Karlo Aldridge PEDIATRIC PHYSICIAN ASSISTANT-CRUSHER LOADER EQUIPMENT OPERATOR Work Phone: [facility] 09-05-2023 14:30-0500 Diastolic blood pressure 76 mm[Hg] Karlo Aldridge PEDIATRIC PHYSICIAN ASSISTANT-CRUSHER LOADER EQUIPMENT OPERATOR Work Phone: [facility] 09-05-2023 14:30-0500 Heart rate 97 /min Karlo Aldridge PEDIATRIC PHYSICIAN ASSISTANT-CRUSHER LOADER EQUIPMENT OPERATOR Work Phone: [facility] 09-05-2023 14:30-0500 Systolic blood pressure 124 mm[Hg] Karlo Aldridge PEDIATRIC PHYSICIAN ASSISTANT-CRUSHER LOADER EQUIPMENT OPERATOR Work Phone: [facility] 09-01-2023 08:17-0500 Body height 179.07 cm DO Jairo Ball Work Phone: [facility] 09-01-2023 08:17-0500 Body temperature 97.7 [degF] DO Jairo Ball Work Phone: [facility] 09-01-2023 08:17-0500 Body weight 100 kg DO Jairo Ball Work Phone: [facility] 09-01-2023 08:17-0500 Diastolic blood pressure 66 mm[Hg] DO Jairo Ball Work Phone: [facility] 09-01-2023 08:17-0500 Heart rate 109 /min DO Jairo Ball Work Phone: [facility] 09-01-2023 08:17-0500 SaO2% (BldA) [Mass fraction] 96 % DO Jairo Ball Work Phone: [facility] 09-01-2023 08:17-0500 Systolic blood pressure 114 mm[Hg] DO Jairo Ball Work Phone: [facility] 06-13-2023 14:47-0400 Body height 177.8 cm Jairo E Ball Work Phone: [facility]Oeeyultcoi-Dhiuazd y 250 DO Work Phone: 06-13-2023 14:47-0400 Body mass index (BMI) [Ratio] 30.44 kg/m2 Jairo E Ball Work Phone: YS-Eknrwclcyz-Abwtxmj y 250 DO Work Phone: 06-13-2023 14:47-0400 Body surface area Derived from formula 2.14 m2 Jairo E Ball Work Phone: DP-Iorhdlzopz-Jgirsan y 250 DO Work Phone: 06-13-2023 14:47-0400 Body weight 96.22 kg Jairo E Ball Work Phone: RG-Vstgguldim-Jbqjjvz y 250 DO Work Phone: 06-13-2023 14:47-0400 Diastolic blood pressure 78 mm[Hg] Jairo E Ball Work Phone: HI-Wrtswmkrjn-Trqbbib y 250 DO Work Phone: 06-13-2023 14:47-0400 Heart rate 56 /min Jairo E Ball Work Phone: OP-Iqyraicvva-Njebstu y 250 DO Work Phone: 06-13-2023 14:47-0400 Systolic blood pressure 138 mm[Hg] Jairo E Ball Work Phone: QA-Hitgffjmuw-Dvsaypi y 250 DO Work Phone: 05-11-2023 15:00-0400 Body height 177.8 cm Jairo Ball Other [employer] [facility] [employer] Other 05-11-2023 15:00-0400 Body mass index (BMI) [Ratio] 29.84 kg/m2 Jairo Ball Other [employer] [facility] [employer] Other 05-11-2023 15:00-0400 Body weight 94.35 kg Jairo Ball Other [employer] Other 05-11-2023 15:00-0400 Diastolic blood pressure 74 mm[Hg] Jairo Ball Other [facility] [employer] Other 05-11-2023 15:00-0400 Systolic blood pressure 136 mm[Hg] Jairo Ball Other [facility] [employer] Other 04-15-2023 11:53-0400 Body height 177.8 cm Jairo E Ball Work Phone: [facility] 250 DO Work Phone: 04-15-2023 11:53-0400 Body mass index (BMI) [Ratio] 29.99 kg/m2 Jairo E Ball Work Phone: [facility] 250 DO Work Phone: 04-15-2023 11:53-0400 Body surface area Derived from formula 2.13 m2 Jairo E Ball Work Phone: [facility] 250 DO Work Phone: 04-15-2023 11:53-0400 Body weight 94.8 kg Jairo E Ball Work Phone: [facility] 250 DO Work Phone: 04-15-2023 11:53-0400 Diastolic blood pressure 72 mm[Hg] Jairo E Ball Work Phone: [facility] 250 DO Work Phone: 04-15-2023 11:53-0400 Heart rate 60 /min Jairo E Ball Work Phone: [facility] 250 DO Work Phone: 04-15-2023 11:53-0400 Systolic blood pressure 124 mm[Hg] Jairo E Ball Work Phone: [facility] 250 DO Work Phone: 03-02-2023 18:36-0400 Body temperature 98.6 [degF] DO Jairo Ball Work Phone: [facility] 03-02-2023 18:36-0400 Diastolic blood pressure 72 mm[Hg] DO Jairo Ball Work Phone: [facility] 03-02-2023 18:36-0400 Heart rate 74 /min DO Jairo Ball Work Phone: [facility] 03-02-2023 18:36-0400 Respiratory rate 18 /min DO Jairo Ball Work Phone: [facility] 03-02-2023 18:36-0400 SaO2% (BldA) [Mass fraction] 96 % DO Jairo Ball Work Phone: [facility] 03-02-2023 18:36-0400 Systolic blood pressure 120 mm[Hg] DO Jairo Ball Work Phone: [facility] 03-02-2023 12:17-0400 Body height 177.8 cm DO Jairo Ball Work Phone: [facility] 03-02-2023 12:17-0400 Body weight 87.4 kg DO Jairo Ball Work Phone: [facility] 03-01-2023 15:15-0400 Body height 177.8 cm Jairo Ball Other [employer] [facility] [employer] Other 03-01-2023 15:15-0400 Body mass index (BMI) [Ratio] 29.21 kg/m2 Jairo Ball Other [facility] [employer] Other 03-01-2023 15:15-0400 Body weight 92.35 kg Jairo Ball Other [facility] [employer] Other 03-01-2023 15:15-0400 Diastolic blood pressure 67 mm[Hg] Jairo Ball Other [facility] [employer] Other 03-01-2023 15:15-0400 Respiratory rate 12 /min Jairo Ball Other [facility] [employer] Other 03-01-2023 15:15-0400 Systolic blood pressure 106 mm[Hg] Jairo Ball Other [facility] [employer] Other 02-25-2023 12:01-0400 Diastolic blood pressure 74 mm[Hg] DO Jairo Ball Work Phone: [facility] 02-25-2023 12:01-0400 Heart rate 80 /min DO Jairo Ball Work Phone: [facility] 02-25-2023 12:01-0400 Systolic blood pressure 125 mm[Hg] DO Jairo Ball Work Phone: [facility] 02-25-2023 12:00-0400 Respiratory rate 16 /min DO Jairo Ball Work Phone: [facility] 02-25-2023 12:00-0400 SaO2% (BldA) [Mass fraction] 96 % DO Jairo Ball Work Phone: [facility] 02-25-2023 08:00-0400 Body temperature 97.7 [degF] DO Jairo Ball Work Phone: [facility] 02-25-2023 06:10-0400 Body weight 87.4 kg DO Jairo Ball Work Phone: [facility] 02-25-2023 06:07-0400 Inhaled oxygen flow rate 2 L/min DO Jairo Ball Work Phone: [facility] 02-24-2023 13:01-0400 Body height 177.8 cm DO Jairo Ball Work Phone: [facility] 02-08-2023 16:30-0400 Body height 177.8 cm Jairo Ball Other [facility] [employer] Other 02-08-2023 16:30-0400 Body mass index (BMI) [Ratio] 30.19 kg/m2 Jairo Ball Other [facility] [employer] Other 02-08-2023 16:30-0400 Body weight 95.44 kg Jairo Ball Other [employer] Other 02-08-2023 16:30-0400 Diastolic blood pressure 75 mm[Hg] Jairo Ball Other [employer] Other 02-08-2023 16:30-0400 Respiratory rate 12 /min Jairo Ball Other [employer] Other 02-08-2023 16:30-0400 Systolic blood pressure 126 mm[Hg] Jairo Ball Other [employer] Other 02-08-2023 15:30-0400 Body height 177.8 cm Jairo Ball Other [employer] Other 02-08-2023 15:30-0400 Body mass index (BMI) [Ratio] 30.19 kg/m2 Jairo [employer] Other [employer] Other 02-08-2023 15:30-0400 Body weight 95.44 kg Jairo [employer] Other [employer] Other 02-08-2023 15:30-0400 Diastolic blood pressure 75 mm[Hg] Jairo [employer] Other [employer] Other 02-08-2023 15:30-0400 Respiratory rate 12 /min Jairo [employer] Other [employer] Other 02-08-2023 15:30-0400 Systolic blood pressure 126 mm[Hg] Jairo [employer] Other [employer] Other Encounters Encounter Date Encounter Type Care Provider Facility Start: 03-21-2024 End: 03-21-2024 ambulatory [facility] Ambulatory Start: 02-11-2024 End: 02-12-2024 ambulatory [facility] Start: 02-11-2024 End: 02-11-2024 Subsequent hospital visit by physician Ashli Castaneda Echo/Vasc Room 2 [facility] Comment on above: 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 con gestive 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, NYHA class 2 (Multi); Persistent atrial fibrillation (Multi); Non-ischemic cardiomyopathy (Multi) Start: 01-31-2024 End: 01-31-2024 ambulatory [facility] Work Phone: Start: 01-31-2024 End: 01-31-2024 Patient encounter procedure [facility] Work Phone: Start: 01-30-2024 Encounter for other preprocedural examination [facility] Ambulatory Start: 01-30-2024 End: 01-30-2024 Office outpatient visit 25 minutes Mary Neal MD Work Phone: [facility] Comment on above: 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 con gestive 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, NYHA class 2 (Multi); Persistent atrial fibrillation (Multi); Pre-operative examination; Former smoker; BMI 31.0-31.9,adult; Coronary artery disease involving prairie band coronary artery of prairie band heart without angina pectoris; Sinus bradycardia; Non-ischemic cardiomyopathy (Multi); Hypertension, benign Start: 01-30-2024 End: 01-30-2024 Preprocedural examination done Mary Neal MD Work Phone: [facility] Start: 01-30-2024 End: 01-30-2024 ambulatory [facility] Ambulatory Start: 01-30-2024 End: 01-30-2024 Encounter for other preprocedural examination 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 Amb[facility] Start: 11-01-2023 End: 11-01-2023 Patient encounter procedure DO Jairo Corbin Work Phone: [facility]- Start: 10-26-2023 End: 10-26-2023 ambulatory Jairo Corbin Other [employer] Other Start: 10-26-2023 Telephone encounter [facility] Start: 10-21-2023 End: 10-24-2023 Evaluation and management of inpatient Jairo Corbin Facility:[facility] Start: 10-21-2023 Non-patient / Non-visit DO Armaan Corbin Work Phone: [facility] Work Phone: Start: 10-12-2023 Chart abstracting Scanning Pro vider External [facility] Start: 09-29-2023 End: 09-29-2023 Office outpatient visit 25 minutes Mary Neal MD Work Phone: [facility] Comment on above: Persistent atrial fi brillation (CMS/HCC); Paroxysmal atrial fibrillation (CMS/HCC); Non-ischemic cardiomyopathy (CMS/HCC); 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 congestive 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, NYHA class 2 (CMS/HCC); Coronary artery disease involving prairie band coronary artery of prairie band heart without angina pectoris; SOB (shortness of breath); Hypertension, benign; 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; Obstructive sleep apnea syndrome; Former smoker; Obesity (BMI 30.0-34.9); Personal history of COVID-19; Dilated cardiomyopathy (CMS/HCC); Medication course changed Start: 09-29-2023 End: 09-29-2023 ambulatory [facility] Ambulatory Start: 09-13-2023 Office outpatient vi sit 25 minutes Jairo Corbin [facility] Start: 09-13-2023 End: 09-13-2023 ambulatory DO Jairo Corbin Work Phone: [employer] Other Start: 09-13-2023 End: 09-13-2023 Departed Referred DO Jairo Corbin Work Phone: [facility] [place] Start: 09-13-2023 End: 09-13-2023 Patient encounter procedure DO Jairo Corbin Work Phone: [facility] Work Phone: Start: 09-10-2023 End: 09-10-2023 ambulatory Jairo Corbin Other [employer] Other Start: 09-10-2023 Telephone encounter Jairo PATRICIA [facility] Start: 09-07-2023 End: 09-07-2023 ambulatory Jairo Shaquille Other [employer] Other Start: 09-07-2023 Telephone encounter Jairo PATRICIA [facility] Start: 09-05-2023 End: 09-05-2023 ambulatory [facility] Ambulatory Start: 09-05-2023 End: 09-05-2023 Office outpatient visit 25 minutes Karlo Aldridge PEDIATRIC PHYSICIAN ASSISTANT-CRUSHER LOADER EQUIPMENT OPERATOR Work Phone: [facility] Comment on above: Dilated cardiomyopat hy (CMS/HCC) (Primary Dx); Paroxysmal atrial fibrillation (CMS/HCC); Hypertension, benign; Obstructive sleep apnea syndrome; Class 1 obesity due to excess calories with serious comorbidity and body mass index (BMI) of 30.0 to 30.9 in adult; 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 Start: 09-01-2023 End: 09-01-2023 ambulatory Jairo Wild Facility:[facility] Start: 09-01-2023 End: 09-01-2023 ambulatory DO Jairo Corbin Work Phone: [facility] Work Phone: Start: 09-01-2023 End: 09-01-2023 Patient encounter procedure DO Jairo Corbin Work Phone: [facility] Work Phone: Start: 08-24-2023 End: 08-25-2023 ambulatory [facility] Start: 07-22-2023 End: 08-19-2023 ambulatory [facility] Ambulatory Start: 06-16-2023 End: 06-16-2023 ambulatory Jairo Corbin Other [facility] [employer] Other Start: 06-16-2023 Telephone encounter [facility] Start: 06-13-[address] Jairo Corbin Facility: Start: 06-13-2023 Office outpatient vi sit 15 minutes Jairo Corbin Work Phone: -[facility] 600 DO Work Phone: Start: 06-13-2023 Patient encounter procedure Jairo Corbin Work Phone: [facility] 250 DO Work Phone: Start: 05-12-2023 Chart Update Jairo julian Work Phone: [facility] 250 DO Work Phone: Start: 05-11-2023 End: 05-11-2023 ambulatory Jairo Corbin Other [facility] [employer] Other Start: 05-11-2023 Office outpatient vi sit 25 minutes Jairo VALADEZ [facility] Start: 05-05-[address] Jairo Corbin Facility:[id number] Start: 04-20-2023 Image Encounter Jairo julian Work Phone: [facility] 250 DO Work Phone: Start: 04-15-2023 Telephone encounter Jairo Roque [facility] Start: 04-15-2023 Office outpatient vi sit 40 minutes Jairo Corbin Work Phone: [facility] 250 DO Work Phone: Start: 04-15-2023 End: 04-15-[address] Jairo Corbin [facility] [employer] Other Start: 04-12-2023 End: 04-12-2023 ambulatory Jairo Corbin Other [facility] [employer] Other Start: 04-12-2023 Telephone encounter Jairo PATRICIA G [facility] Start: 03-22-2023 Telephone encounter Jorge jiménez DO Work Phone: [facility] 250 DO Work Phone: Start: 03-06-2023 End: 03-06-2023 ambulatory Jairo Corbin Other [facility] [employer] Other Start: 03-06-2023 Telephone encounter Jairo Roque [facility] Start: 03-02-2023 End: 03-02-2023 ambulatory Papo Lucio Facility:[facility] Start: 03-02-2023 Telephone encounter Jairo PATRICIA [facility] Start: 03-02-2023 End: 03-02-2023 Admission to same day surgery center DO Jairo Corbin Work Phone: [facility]-Drilling Superintendent Work Phone: Start: 03-02-2023 End: 03-02-2023 ambulatory DO Jairo Shaquille Work Phone: [facility] Work Phone: Start: 03-02-[address] Jorge Lucio Facility:[id number] Start: 03-01-2023 Transitional care tanisha díaz srvc 14 day discharge Jairo Corbin [facility] Start: 03-01-2023 End: 03-02-[address] JAIRO CORBIN [facility] [employer] Other Start: 02-25-2023 Message Jorge Lees n DO Work Phone: [facility] 250 DO Work Phone: Start: 02-25-[address] Jairo Corbin Facil ity:[facility] Start: 02-25-[address] Jairo Corbin Facil ity:[id number] Start: 02-24-[address] Jairo [place] Facility:[id number] Start: 02-24-2023 End: 02-25-2023 Evaluation and management of inpatient Brad Magallaneschagochristoph Facility:[facility] Start: 02-23-2023 End: 02-25-2023 Evaluation and management of inpatient DO Jairo Shaquille Work Phone: [facility] [place] [facility] Work Phone: Start: 02-19-2023 End: 02-20-[address] JAIRO CORBIN Facility:[id number] Start: 02-09-2023 End: 02-09-2023 ambulatory Jairo Corbin Other [employer] Other Start: 02-09-2023 Telephone encounter Jairo PATRICIA G [facility] Start: 02-08-2023 End: 02-08-2023 ambulatory Jairo Corbin Other [employer] Other Start: 02-08-2023 Patient encounter procedure Jairo Corbin [facility] Start: 02-01-2023 End: 02-01-2023 ambulatory Jairo Corbin Other [employer] Other Start: 02-01-2023 Telephone encounter Jairo Corbin BELEM G [facility] Start: 12-15-2022 End: 12-15-2022 ambulatory Jairo Corbin Other [employer] Other Start: 12-15-2022 Office outpatient vi sit 15 minutes Jairo Corbin [facility] Start: 12-15-2022 Telephone encounter Jairo Corbin BELEM [facility] Start: 12-10-2022 End: 12-10-2022 ambulatory Jairo Corbin Other [employer] Other Start: 12-10-2022 Office outpatient vi sit 15 minutes Jairo Corbin [facility] Start: 11-27-2022 End: 11-27-2022 ambulatory Jairo Corbin Other [employer] Other Start: 11-27-2022 Telephone encounter Jairo Corbin FP G [facility] Start: 06-01-2022 End: 06-02-[address] JAIRO CORBIN Facility: Procedures Date Procedure Procedure Detail Performing Clinician Start: 02-11-2024 TRANSTHORACIC ECHO ( TTE) CHRISTIANO NEAL Start: 01-30-2024 ECG 12-LEAD KARLO Sifuentes Start: 01-30-2024 FOLLOW UP IN CARDIOLOGY KARLO ALDRIDGE Start: 01-30-2024 Ecg routine ecg w/le ast 12 lds w/i&r Mary Neal MD Work Phone: Start: 11-10-2023 Basic metabolic 2000 panel - Serum or Plasma KARLO ALDRIDGE Start: 11-10-2023 FOLLOW UP IN CARDIOLOGY KARLO ALDRIDGE Start: 09-29-2023 FOLLOW UP IN CARDIOLOGY KARLO ALDRIDGE Start: 09-07-2023 Ecg routine ecg w/le ast 12 lds w/i&r Karlo Aldridge PEDIATRIC PHYSICIAN ASSISTANT-CRUSHER LOADER EQUIPMENT OPERATOR Work Phone: Start: 08-24-2023 NM HEART BLOOD POOL EJECTION FRACTION WALL MOTION (MUGA) MARY NEAL Start: 08-24-2023 NM HEART BLOOD POOL EJECTION FRACTION WALL MOTION (MUGA) MARY NEAL Start: 03-02-2023 CL [facility] Angio DO B enjamin Ball Work Phone: Start: 02-23-2023 Plain chest X-ray DO Be njamin Ball Work Phone: Amputation and disarticulation of finger Jairo E Ball Work Phone: Cholecystectomy Jairo E B all Work Phone: Operation on liver Jairo E Ball Work Phone: Procedure on neck Jairo E Ball Work Phone: Renal lithotripsy Jairo E Ball Work Phone: Repair of musculoten dinous cuff of shoulder Jairo E Ball Work Phone: Repair of shoulder Jairo E Ball Work Phone: Total colonoscopy Jairo E Ball Work Phone: Comment on above: unsure of date; Plan of Treatment Date Care Activity Detail Author Start: 06-27-2025 DTaP,Tdap and Td Vaccines (2 - Td or Tdap) DTaP,Tdap and Td Vaccines (2 - Td or Tdap) [facility] [employer] Start: 06-27-2025 DTaP/Tdap/Td Vaccines (2 - Td or Tdap) DTaP/Tdap/Td Vaccines (2 - Td or Tdap) [facility] Start: 10-21-2024 Echocardiography Echocardiogram [facility] Start: 06-03-2024 Influenza vaccination Influenza Vaccine (Season Ended) [facility] Start: 03-26-2024 End: 03-26-2024 Patient encounter procedure 03/26/2024 1:15 PM EDT Office Visit [facility] [address] [facility] [address] [place] [address] Mary Neal MD [address] [place] [address] [address] [place] [address] [facility] Start: 02-25-2024 Echocardiography Echocardiogram [facility] Start: 02-11-2024 End: 02-11-2024 Patient encounter procedure 02/11/2024 1:30 PM EDT Appointment [address] [place] [phone] [facility] Start: 02-02-2024 End: 02-02-2024 Patient encounter procedure 02/02/2024 12:30 PM EDT Office Visit [place] [address] [address] [place] [phone] Mary Neal MD [address] [place] [address] [facility] Start: 01-30-2024 End: 01-29-2026 [facility] Transthoracic Transthoracic Echo Complete Echocardiography Routine 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 congestive 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, NYHA class 2 (Multi) Persistent atrial fibrillation (Multi) Non-ischemic cardiomyopathy (Multi) Expected: 01/30/2024 (Approximate), Expires: 01/29/2026 [facility] Service Area Work Phone: Comment on above: Expected: 01/30/2024 (Approximate), Expi res: 01/29/2026 Start: 11-17-2023 End: 11-10-2024 Basic metabolic 2000 panel - Serum or Plasma Basic Metabolic Panel Lab Routine 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 congestive 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, NYHA class 2 (CMS/HCC) Persistent atrial fibrillation (CMS/HCC) Hypertension, benign Expected: 11/17/2023 (Approximate), Expires: 11/10/2024 [facility] Area Work Phone: Comment on above: Expected: 11/17/2023 (Approximate), Expi res: 11/10/2024 Start: 11-10-2023 End: 11-10-2023 Patient encounter procedure 11/10/2023 1:45 PM EST Office Visit [facility] [address] [place] [id number] Mary Neal MD [address] [place] [address] [facility] Start: 10-24-2023 End: 10-24-2023 [facility] Start: 10-23-2023 [facility] Start: 10-22-2023 Thiamine [Moles/volume] in Blood [facility] Start: 10-22-2023 [facility] Start: 10-21-2023 Hospital admission [facility] Start: 10-21-2023 Referral to radiotelegraph operator [facility] Start: 10-21-2023 [facility] Start: 10-19-2023 End: 10-19-2023 Patient encounter procedure 10/19/2023 9:00 AM EST Office Visit [facility] [address] [place] [address] Ceci Fuller MD [address] [place] [address] [facility] Start: 09-29-2023 End: 09-29-2023 Patient encounter procedure 09/29/2023 1:45 PM EST Office Visit [facility] [address] [facility] [address] [place] [address] Mary Neal MD [address] [place] [address] [facility] Start: 09-15-2023 MUGA, Provider: CAREN HHVI NUCLEAR 01,[id number], Status: Pen, Time: 2:30 PM MUGA, Provider: CAREN HHVI NUCLEAR 01,[id number], Status: Pen, Time: 2:30 PM EL-Hgjxgbjqoe-Zwhtr erick 250 DO Work Phone: Start: 09-15-2023 EKG, Provider: SARI SANTANA BLUEPRINT CLERK 1,[id number], Status: Pen, Time: 2:15 PM EKG, Provider: SARI SANTANA BLUEPRINT CLERK 1,[id number], Status: Pen, Time: 2:15 PM SH-Lbhuijzlwh-Hktoi erick 250 DO Work Phone: Start: 09-13-2023 Nasal septoplasty OR Nasal Septoplasty/Poss Turbinates (Bilateral) [facility] Start: 07-21-2023 FUV, Provider: Jorge Lucio, Status: Pen, Time: 11:10 AM FUV, Provider: Jorge Lucio, Status: Pen, Time: 11:10 AM -[facility] 250 DO Work Phone: Start: 06-03-2023 COVID-19 Vaccine ( season) COVID-19 Vaccine ( season) [facility] Start: 06-03-2023 Influenza vaccination [facility] Start: 05-05-2023 MUGA, Provider: CAREN HHVI NUCLEAR 01,[id number], Status: Pen, Time: 2:30 PM MUGA, Provider: CAREN HHVI NUCLEAR 01,[id number], Status: Pen, Time: 2:30 PM -[facility] 250 DO Work Phone: Start: 04-15-2023 FUV, Provider: Jorge Lucio, Status: Pen, Time: 11:00 AM FUV, Provider: Jorge Lucio, Status: Pen, Time: 11:00 AM -[facility] 250 DO Work Phone: Start: 03-02-2023 [facility] Start: 02-25-2023 [facility] Start: 02-24-2023 Referral to radiotelegraph operator [facility] Start: 02-24-2023 Sleep disorder assessment [facility] Start: 02-23-2023 Hospital admission [facility] Start: 03-03-2022 Pneumococcal Vaccine: 65+ Years (3 - PPSV23 or PCV20) Pneumococcal Vaccine: 65+ Years (3 - PPSV23 or PCV20) [facility] Start: 03-03-2022 Pneumococcal Vaccine: 65+ Years (3 of 3 - PPSV23 or PCV20) Pneumococcal Vaccine: 65+ Years (3 of 3 - PPSV23 or PCV20) [facility] Start: 2019 Abdominal aortic aneurysm screening Abdominal Aortic Aneurysm (AAA) Screening [facility] Start: 2019 Fall Risk Screening Fall Risk Screening [facility] Start: 2014 RSV patients and/or patients aged 60+ years (1 - 1-dose 60+ series) RSV patients and/or patients aged 60+ years (1 - 1-dose 60+ series) [facility] Start: 10-05-2013 Administration of varicella zoster vaccine Zoster (Shingles) Vaccine (2 of 3) [facility] Start: 10-05-2013 Zoster Vaccines (2 of 3) Zoster Vaccines (2 of 3) [facility] Start: 1972 Adult BMI Screening Adult BMI Screening [facility] Start: 1972 Diabetes mellitus screening Diabetes Screening [facility] Start: 1972 Hepatitis C screening Hepatitis C Screening [facility] Start: 1966 Depression Screening Depression Screening [facility] Start: 1966 Tobacco Screening Tobacco Screening [facility] Start: 1954 COVID-19 Vaccine (#1) COVID-19 Vaccine (#1) [facility] Start: 1954 Creatinine measurement Creatinine Level [facility] Start: 1954 Lipid panel Lipid Panel [facility] Start: 1954 Medicare Annual Wellness Visit [facility] Start: 1954 Potassium measurement Potassium Level [facility] Start: 1954 Screening for malignant neoplasm of colon [facility] ECG 12 Lead ECG 12 Lead ECG Routine Paroxysmal atrial fibrillation (CMS/HCC) 09/07/2023 10:29 AM EST [facility] Service Area Work Phone: Patient Education Carvedilol [place] Nitroglycerin Spironolactone [facility] Work Phone: Patient referral [facility] Work Phone: End: 02-11-2024 US Heart Transthoracic [facility] Service Area Work Phone: Comment on above: Once for 1 Occurrences starting 02/11/20 24 until 02/11/2024 [facility] Immunizations Immunization Date Immunization Notes Care Provider Neha cervantes 07-06-2019 Seasonal trivalent influenza vaccine, adjuvanted, preservative free Jorge Lucio DO Work Phone: [facility] [employer] 250 DO Work Phone: 07-06-2019 influenza virus vaccine, unspecified formulation Karlo Aldridge PEDIATRIC PHYSICIAN ASSISTANT-CRUSHER LOADER EQUIPMENT OPERATOR Work Phone: [facility] Work Phone: 08-09-2018 influenza, live, intranasal, quadrivalent Jorge Lucio DO Work Phone: [facility] [employer] 250 DO Work Phone: 09-01-2017 influenza, seasonal, injectable, preservative free Jorge Lucio DO Work Phone: [facility] [employer] 250 DO Work Phone: 03-03-2017 pneumococcal polysaccharide vaccine, 23 valent [employer] Other [employer] Other 06-27-2015 influenza, seasonal, injectable, preservative free Jorge Lucio DO Work Phone: [facility] [employer] 250 DO Work Phone: 06-27-2015 pneumococcal conjuga te vaccine, 13 valent Jorge Lucio DO Work Phone: [facility] 250 DO Work Phone: 06-27-2015 tetanus toxoid, redu parth diphtheria toxoid, and acellular pertussis vaccine, adsorbed Jorge Lucio DO Work Phone: [facility] [employer] 250 DO Work Phone: 08-10-2013 zoster vaccine, live Jorge Lucio DO Work Phone: [facility] 250 DO Work Phone: 08-10-2013 zoster vaccine, unspecified formulation [facility] 08-08-2013 influenza, seasonal, injectable Jorge Lucio DO Work Phone: [facility] 250 DO Work Phone: 01-21-2009 hepatitis A and hepatitis B vaccine Jorge Lucio DO Work Phone: [facility] 05-21-2008 hepatitis A and hepatitis B vaccine Jorge Lucio DO Work Phone: [facility] 04-03-2008 hepatitis A and hepatitis B vaccine Jorge Lucio DO Work Phone: [facility] Payers Date Payer Category Payer Self-pay [id number] 2020 Unknown [id number] 2020 Unknown [id number] 2020 Medicare MEDICARE MEDICAR E PART A AND B [id number] 2020-Present [address] [place] [address] [id number] 1959 Medicare [id number] 1959 Unknown [id number] 2.16.840.1.998851.19 1954 Unknown [id number] 2.16.840.1.889014.3.579.2.59 3 1954 Unknown [id number] 2.16.840.1.739362.3.579.2.59 3 1954 Unknown [id number] 2.16.840.1.426994.3.579.2.59 3 1954 Unknown [id number] 2.16.840.1.689499.3.579.2.10 68 1954 Unknown [id number] 2.16.840.1.743352.3.579.2.35 6 1954 Unknown [id number] 2.16.840.1.112575.3.579.2.35 6 1954 Unknown [id number] 2.16.840.1.728095.3.579.2.35 6 1954 Unknown [id number] 2.16.840.1.855393.3.579.2.35 6 1954 Unknown [id number] 2.16.840.1.271453.3.579.2.35 6 1954 Unknown [id number] 2.16.840.1.066780.3.579.2.12 46 1954 Unknown [id number] 2.16.840.1.588006.3.579.2.12 46 1954 Unknown [id number] 2.16.840.1.326481.3.579.2.12 46 1954 Unknown [id number] 2.16.840.1.745507.3.579.2.12 46 1954 Unknown [id number] 2.16.840.1.510218.3.579.2.12 46 1954 Unknown [id number] 2.16.840.1.044226.3.579.2.12 44 1954 Unknown [id number] 2.16.840.1.496335.3.579.2.12 44 1954 Unknown [id number] 2.16.840.1.356332.3.579.2.12 44 1954 Unknown [id number] 2.16.840.1.516155.3.579.2.12 44 1954 Unknown [id number] 2.16.840.1.349958.3.579.2.12 44 1954 Unknown [id number] 2.16.840.1.517745.3.579.2.12 44 Unknown [facility] [id number] Unknown [id number] 2.16.840.1.371917.3.579.2.53 1 Unknown [id number] 2.16.840.1.060781.3.579.2.53 1 Unknown [id number] 2.16.840.1.969500.3.579.2.53 1 Unknown [id number] 2.16.840.1.712291.3.579.2.53 1 Unknown [id number] 2.16.840.1.439414.3.579.2.53 1 Social History Date Type Detail Facility Start: 09-05-2023 End: 01-30-2024 Sex Assigned At [facility] [employer] Other Start: 03-02-2023 End: 01-30-2024 Tobacco smoking status NHIS Ex-smoker (finding) [facility] Start: 1955 Sex Assigned At Male F [facility] Start: 09-05-2023 End: 01-30-2024 Alcohol ingestion Alcohol ingestion -[facility] 250 DO Work Phone: Comment on above: 10oz wine daily; coffee 1 mug daily; quit 2007; Start: 11-01-2023 End: 11-01-2023 History of tobacco use Current smoker [facility] Work Phone: End: 10-03-1999 History of tobacco use Cigarette Smoker [facility] Work Phone: Start: 09-05-2023 End: 01-30-2024 Tobacco use and exposure Smokeless tobacco non-user [facility] Work Phone: Start: 09-05-2023 End: 01-30-2024 Alcohol intake Current drinker of alcohol (finding) [facility] Work Phone: Start: 1955 Sex Assigned At Not on file [facility] Work Phone: Start: 08-26-2023 End: 02-11-2024 Exposure to SARS-CoV-2 (event) Not sure [facility] Tobacco smoking stat [facility] Tobacco smoking consumption unknown [facility] Housing Instability Unknown [facility] Start: 10-22-2023 Tobacco smoking stat [facility] Never smoked tobacco (finding) [facility] Goals Date Patient Goal Desired Activity /State Functional Status Date Assessment Result Facility 03-02-2023 Functional status Patient at Baseline [facility] Work Phone: 02-25-2023 Functional status Patient at Baseline [facility] Work Phone: 02-24-2023 Functional status Disability Sta tus Patient at Baseline [facility] Work Phone: Mental Status Date Assessment Result Facility 03-02-2023 Cognitive function Cognitive Sta tus Patient at Baseline [facility] Work Phone: 02-25-2023 Cognitive function Cognitive Sta tus Patient at Baseline [facility] Work Phone: Clinical Notes 11-27-2022 to 01-30-2024 Mary Neal MD - 01/30/2024 2:00 PM EDTPatient InstructionsMary Neal MD - 11/10/2023 1:45 PM ESTPatient InstructionsMary Neal MD - 09/29/2023 1:45 PM ESTPatient Instructions Note Date & Type Note Facility 01-30-2024 History of Present illness Narrative This is a follow-up from November 2023.Patient was most recently seen by me in September 2023 for shortness of breath, was noted to be in atrial fibrillation, this patient has history of dilated nonischemic cardiomyopathy with LVEF as low as 20% in 2022, subsequently 31% by MUGA scan August 2023 in the setting of atrial fibrillation. He was off anticoagulation because of prohibitive cost, and was started on warfarin. Does not report any bleeding diathesis. We were planning outpatient electrical cardioversion, however he became progressively more short of breath, was evaluated in the emergency department, he was in decompensated 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 and atrial fibrillation with rapid ventricular rate, was placed on IV diltiazem, subsequently electrically cardioverted. Did not see a NABOR was done. At the time of discharge his Lasix dose was increased from 20 mg daily to 40 mg daily. Echo during hospital stay suggested severe pulmonary hypertension. Subjective : Accompanied by to the office Did not bring in medication bottles or list Tells me that he takes furosemide 20 mg daily 20 mg p.o. twice daily Does not report shortness of breath with routine activities orthopnea PND or lower extremity edema denies palpitations or bleeding diathesis. Wants full mouth dental extraction. Other surgical procedures also planned. Wants POC. NOACs are prohibitively expensive, hence on warfarin. Reviewed PT/INR results, not always therapeutic probably therapeutic 65% of the time. This is not inconsistent with therapeutic levels on warfarin therapy in general History so Far : COVID infection with respiratory symptoms December 2022 Systolic congestive 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 January 2023 class IV January 2023 presented to [facility] Cardiac cath: LVEF 20% LVEDP was 25, minimal coronary artery disease January 2023 TTE LVEF 40 to 45% with hypokinesis of inferior lateral and basal apical MUGA scan August 2023 LVEF 31%, in the setting of atrial fibrillation As of 09/29/2023 visit functional class II, not volume overloaded Echocardiogram October 2023-LVEF 30 to 35% mild tricuspid regurgitation RVSP 60 to 65 mmHg, left atrial diameter 3.9 cm, RVSP 69 mmHg, LV end-systolic diameter 4.5 cm Primary hypertension optimal in office No orthostatic symptoms Dilated cardiomyopathy (CMS/HCC), nonischemic Initial diagnosis January 2023 NICM HFrEF 31% Aug 2023 MUGA (January 2023 cath EF 20%: January 2023 TTE EF 40-45%: May 2023 MUGA EF 33%) ? Viral FC II Stage C Narrow QRS of 94 ms based on EKG of 09/05/2023 Paroxysmal atrial fibrillation (CMS/HCC) Reports Apple[employer] reporting afib starting Jun 29, 2023. Jul 22, 2023 holter afib through out. He was instructed to start Eliquis, reports that cost was prohibitive, currently on warfarin, also likes to see the effects of his medications being measured enrolled in Coumadin clinic at [place]. Most recent INR 3.0, warfarin dose will be reduced slightly. Echocardiogram January 2023-LVEF 40 to 45% moderate to severe hypokinesis inferolateral and basal septal villar aortic sclerosis trace tricuspid regurgitation left atrial diameter 4.1 cm LV end-systolic diameter 4 cm RV systolic pressure 27 mmHg left atrial volume index 32.5 mL/m Class 1 obesity with body mass index (BMI) of 30.0 to 30.9 in adult Reviewed the merits of healthy lifestyle choices on overall cardiovascular health. USP current use of 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 therapy CHADS VASc 3 Understands importance of anticoagulation, currently on warfarin DOACs are prohibitively expensive for him Acute on chronic systolic left 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, precipitated by atrial fibrillation with rapid ventricular rate, hospitalized October 2023, electrically cardioverted to sinus rhythm. Currently functional class II Obstructive sleep apnea syndrome Remains compliant with BiPAP Objective Wt Readings from Last 3 Encounters: 01/30/24 99.8 kg (220 lb) 11/10/23 99.3 kg (219 lb) 09/29/23 99.8 kg (220 lb) Vitals: 01/30/24 1409 BP: 130/62 BP Location: Left arm Patient Position: Sitting Pulse: 58 Weight: 99.8 kg (220 lb) Height: 1.778 m (5' 10 ) Physical Exam: GENERAL APPEARANCE: in no acute distress. CHEST: Symmetric and non-tender. INTEGUMENT: Skin warm and dry HEENT: No gross abnormalities identified.No pallor or scleral icterus. NECK: Supple, no JVD, no bruit. NEURO/PSHCY: Alert and oriented x3; appropriate behavior and responses and responses LUNGS: Clear to auscultation bilaterally; normal respiratory effort. HEART: Rate and rhythm regular with no evident murmur; no gallop appreciated. ABDOMEN: Soft, non tender. MUSCULOSKELETAL: No gross deformities. EXTREMITIES: Warm There is no edema noted. Meds: Current Outpatient Medications Medication Instructions ALPRAZolam (Xanax) 0.5 mg tablet oral, 2 times daily, Take 1 - 1.5 tablets ascorbic acid, vitamin C, 500 mg capsule 1 capsule, oral, Daily aspirin 81 mg, oral, Daily carvedilol (COREG) 12.5 mg, oral, 2 times daily with meals cetirizine (ZYRTEC) 10 mg, oral, Nightly digoxin (LANOXIN) 125 mcg, Daily furosemide (LASIX) 20 mg, oral, 2 times daily magnesium oxide 300 mg magnesium tablet oral meloxicam (MOBIC) 15 mg, oral, As needed niacin, inositol niacinate, 400 mg niacin (500 mg) capsule 1 capsule, As needed sacubitriL-valsartan (Entresto) 24-26 mg tablet 1 tablet, oral, 2 times daily selenium 50 mcg, oral, Daily spironolactone (Aldactone) 25 mg tablet 0.5 tablets, oral, Daily traMADol (Ultram) 50 mg tablet 1 tablet, oral, Every 6 hours PRN warfarin (Coumadin) 1 mg tablet Take as directed by [facility] warfarin (COUMADIN) 5 mg, oral, Every evening, Take as directed. zinc acetate 25 mg (zinc) capsule 1 capsule, oral, Daily Allergies Allergen Reactions Nsaids (Non-Steroidal Anti-Inflammatory Drug) Unknown Gfqcmhs-Lqv-Fwa Reductase Inhibitors Unknown LABS: Reviewed PT and INR results CBC from October 2023. INR results have been labile. Patient Active Problem List Diagnosis Date Noted Pre-operative examination 01/30/2024 BMI 31.0-31.9,adult 01/30/2024 Sinus bradycardia 01/30/2024 Hospital discharge follow-up 11/10/2023 Personal history of COVID-19 09/29/2023 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 congestive 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, NYHA class 2 (Multi) 09/29/2023 Medication course changed 09/29/2023 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 congestive 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, NYHA class 2 (Multi) Follow Up In Cardiology Transthoracic Echo Complete 2. Persistent atrial fibrillation (Multi) Follow Up In Cardiology ECG 12 Lead Follow Up In Cardiology Transthoracic Echo Complete 3. Pre-operative examination 4. Former smoker 5. BMI 31.0-31.9,adult 6. Coronary artery disease involving prairie band coronary artery of prairie band heart without angina pectoris 7. Sinus bradycardia 8. Non-ischemic cardiomyopathy (Multi) Transthoracic Echo Complete 9. Hypertension, benign Clinical decision making: Patient with left 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 in the setting of atrial fibrillation, underwent electrical cardioversion more than 6 weeks ago, and is maintained on anticoagulation with levels that are not consistently therapeutic. We have not maximized his 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 therapy. Patient would like full mouth dental extraction. His functional class is 2. Farxiga and Jardiance are prohibitively expensive, otherwise they would be on his medical regimen I recommended increasing Entresto, but patient is suggesting that we reevaluate his LV function and then make the recommendation. I am okay with this. He has been in sinus rhythm now for over 6 weeks, and we will order an echocardiogram Cardiac risk for upcoming procedure is considered acceptable, may proceed as planned, risk-benefit favors holding warfarin for 5 days prior to procedure and please resume as soon as feasible after procedure. Follow up : after testing Provider Attestation - Scribe documentation All medical record entries made by the Scribe were at my direction and personally dictated by me. I have reviewed the chart and agree that the record accurately reflects my personal performance of the history, physical exam, discussion and plan. Scribe Attestation By signing my name below, I, Marlo Bedolla LPN attest that this documentation has been prepared under the direction and in the presence of Mary Neal MD. documented in this encounter [facility] Work Phone: 01-30-2024 Instructions Chioma Sewell LPN - 01/30/2024 2:00 PM EDT Please bring all medicines, vitamins, and herbal supplements with you when you come to the office. Prescriptions will not be filled unless you are compliant with your follow up appointments or have a follow up appointment scheduled as per instruction of your physician. Refills should be requested at the time of your visit. Patient is cleared from a cardiac standpoint for dental procedure. documented in this encounter [facility] Work Phone: 11-10-2023 History of Present illness Narrative Patient was most recently seen by me in September 2023 for shortness of breath, was noted to be in atrial fibrillation, this patient has history of dilated nonischemic cardiomyopathy with LVEF as low as 20% in 2022, subsequently 31% by MUGA scan August 2023 in the setting of atrial fibrillation. He was off anticoagulation because of prohibitive cost, and was started on warfarin. Does not report any bleeding diathesis. We were planning outpatient electrical cardioversion, however he became progressively more short of breath, was evaluated in the emergency department, he was in decompensated 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 and atrial fibrillation with rapid ventricular rate, was placed on IV diltiazem, subsequently electrically cardioverted. Did not see a ANBOR was done. At the time of discharge his Lasix dose was increased from 20 mg daily to 40 mg daily. Echo during hospital stay suggested severe pulmonary hypertension. Subjective : Since last visit patient was hospitalized with discharge diagnosis of acute on chronic systolic congestive 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, atrial fibrillation with rapid ventricular rate, dental caries, cognitive decline, sleep apnea treated with nocturnal bilevel positive airway pressure or BPAP and hypertension. His LVEF was reported to be 30 to 35% with severe pulmonary hypertension. Carvedilol dose was increased, and electrical cardioversion was performed on 10/24/2023. Since discharge the has felt better overall, but is tired, on several occasions in the morning he is lightheaded and his blood pressures are in the 80s and low 90s systolic. He has not felt any palpitations, he was totally asymptomatic with respect to atrial fibrillation. His 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 symptoms that cardiac. History so Far : COVID infection with respiratory symptoms December 2022 Systolic congestive 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 January 2023 class IV January 2023 presented to [facility] Cardiac cath: LVEF 20% LVEDP was 25, minimal coronary artery disease January 2023 TTE LVEF 40 to 45% with hypokinesis of inferior lateral and basal apical MUGA scan August 2023 LVEF 31%, in the setting of atrial fibrillation As of 09/29/2023 visit functional class II, not volume overloaded Primary hypertension optimal in office No orthostatic symptoms Dilated cardiomyopathy (CMS/HCC), nonischemic Initial diagnosis January 2023 NICM HFrEF 31% Aug 2023 MUGA (January 2023 cath EF 20%: January 2023 TTE EF 40-45%: May 2023 MUGA EF 33%) ? Viral FC II Stage C Narrow QRS of 94 ms based on EKG of 09/05/2023 Paroxysmal atrial fibrillation (CMS/HCC) Reports [facility] Power[employer] reporting afib starting Jun 29, 2023. Jul 22, 2023 holter afib through out. He was instructed to start Eliquis, reports that cost was prohibitive, currently on warfarin, also likes to see the effects of his medications being measured enrolled in Coumadin clinic at [place]. Most recent INR 3.0, warfarin dose will be reduced slightly. Echocardiogram January 2023-LVEF 40 to 45% moderate to severe hypokinesis inferolateral and basal septal villar aortic sclerosis trace tricuspid regurgitation left atrial diameter 4.1 cm LV end-systolic diameter 4 cm RV systolic pressure 27 mmHg left atrial volume index 32.5 mL/m Class 1 obesity with body mass index (BMI) of 30.0 to 30.9 in adult Reviewed the merits of healthy lifestyle choices on overall cardiovascular health. USP current use of 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 therapy CHADS VASc 3 Understands importance of anticoagulation, currently on warfarin DOACs are prohibitively expensive for him Acute on chronic systolic left 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, precipitated by atrial fibrillation with rapid ventricular rate, hospitalized October 2023, electrically cardioverted to sinus rhythm. Currently functional class II Obstructive sleep apnea syndrome Remains compliant with BiPAP Objective Failed to redirect to the Timeline version of the [employer] SmartLink. Wt Readings from Last 3 Encounters: 11/10/23 99.3 kg (219 lb) 09/29/23 99.8 kg (220 lb) 09/05/23 99.3 kg (219 lb) Visit Vitals BP 120/82 (BP Location: Left arm, Patient Position: Sitting) Pulse 72 Ht 1.791 m (5' 10.5 ) Wt 99.3 kg (219 lb) BMI 30.98 kg/m Smoking Status Former BSA 2.22 m Physical Exam: GENERAL APPEARANCE: in no acute distress. CHEST: Symmetric and non-tender. INTEGUMENT: Skin warm and dry HEENT: No gross abnormalities identified.No pallor or scleral icterus. NECK: Supple, no JVD, no bruit. NEURO/PSHCY: Alert and oriented x3; appropriate behavior and responses and responses LUNGS: Clear to auscultation bilaterally; normal respiratory effort. HEART: Rate and rhythm regular with no evident murmur; no gallop appreciated. ABDOMEN: Soft, non tender. MUSCULOSKELETAL: No gross deformities. EXTREMITIES: Warm There is no edema noted. Meds: Current Outpatient Medications Medication Instructions ALPRAZolam (Xanax) 0.5 mg tablet oral, 2 times daily, Take 1 - 1.5 tablets ascorbic acid, vitamin C, 500 mg capsule 1 capsule, oral, Daily aspirin 81 mg, oral, Daily carvedilol (COREG) 12.5 mg, oral, 2 times daily with meals cetirizine (ZYRTEC) 10 mg, oral, Nightly digoxin (LANOXIN) 125 mcg, Daily meloxicam (MOBIC) 15 mg, oral, As needed niacin, inositol niacinate, 400 mg niacin (500 mg) capsule 1 capsule, As needed sacubitriL-valsartan (Entresto) 24-26 mg tablet 1 tablet, oral, 2 times daily spironolactone (Aldactone) 25 mg tablet 0.5 tablets, oral, Daily traMADol (Ultram) 50 mg tablet 1 tablet, oral, Every 6 hours PRN warfarin (Coumadin) 1 mg tablet Take as directed by [place] [facility] warfarin (COUMADIN) 5 mg, oral, Every evening, Take as directed. zinc acetate 25 mg (zinc) capsule 1 capsule, oral, Daily Allergies Allergen Reactions Nsaids (Non-Steroidal Anti-Inflammatory Drug) Unknown Qjxgman-Ipk-Caq Reductase Inhibitors Unknown LABS: Reviewed comprehensive profile and CBC pertaining to hospital stay. 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 Hospital discharge follow-up 2. Persistent atrial fibrillation (CMS/HCC) 3. USP current use of 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 therapy 4. Non-ischemic cardiomyopathy (CMS/HCC) Follow Up In Cardiology 5. 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 congestive 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, NYHA class 2 (CMS/HCC) Follow Up In Cardiology 6. Coronary artery disease involving prairie band coronary artery of prairie band heart without angina pectoris 7. Hypertension, benign 8. Former smoker 9. First-degree AV block Clinical discussion: Patient developed acute on chronic systolic left 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 and hypoxemic respiratory failure related to that, due to atrial fibrillation with rapid ventricular rate. Sustaining normal sinus rhythm and first-degree AV block IA interval today 226 ms Abnormal R wave progression possibly due to lead placement Arterial hypotension and dizziness with up titration of medications during hospital stay Recommendations: 1. Decrease Lasix to 20 mg daily- 2. Basic metabolic profile next week 3. Titration of Lasix may allow better blood pressure to continue 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 therapy 4. If systolic blood pressure is at or below 95-100, patient may skip an occasional Entresto dose. 5. Follow-up in 3 months or sooner if interval issues arise. If patient develops recurrence of atrial fibrillation, will need antiarrhythmic therapy Follow up : 3 months Scribe Attestation By signing my name below, Monique Dorman LPN, Scribjourdan attest that this documentation has been prepared under the direction and in the presence of Mary Neal MD. Provider Attestation - Scribe documentation All medical record entries made by the Scribe were at my direction and personally dictated by me. I have reviewed the chart and agree that the record accurately reflects my personal performance of the history, physical exam, discussion and plan. documented in this encounter [facility] Work Phone: 11-10-2023 Instructions Nunu Graves CMA - 11/10/2023 1:45 PM EST Please bring all medicines, vitamins, and herbal supplements with you when you come to the office. Prescriptions will not be filled unless you are compliant with your follow up appointments or have a follow up appointment scheduled as per instruction of your physician. Refills should be requested at the time of your visit. EKG done in office today documented in this encounter [facility] Work Phone: 09-29-2023 History of Present illness Narrative Patient is new to this provider. Previously seen by Dr. Lucio subsequently by Karlo Aldridge. Accompanied by to the office. is very helpful in coordination of care. Hard of hearing, however I was able to communicate quite well. 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 Previously had some perceived medication noncompliance issues, but patient says the medications were prohibitively expensive for him. His Entresto has just been approved. He is currently taking half a tablet of twice a day so that he can have the medications last longer. Entresto was just approved today. Previously was prescribed Farxiga, which was prohibitively expensive newer anticoagulation agents were also prohibitively expensive. Now on warfarin, and PT/INR today with Coumadin clinic in [place]. Denies any bleeding diathesis. Subjective : Patient has class II symptoms of shortness of breath tries to stay quite active no orthopnea PND, remains on Lasix 20 mg daily, does not report any lower extremity edema. Home blood pressure readings reviewed frequently in the low 100s systolic no lightheadedness presyncope or syncope. No palpitations Compliant with CPAP therapy Objective Wt Readings from Last 3 Encounters: 09/05/23 99.3 kg (219 lb) 06/13/23 96.2 kg (212 lb 2 oz) 04/15/23 94.8 kg (209 lb) Physical Exam: GENERAL APPEARANCE: in no acute distress. CHEST: Symmetric and non-tender. INTEGUMENT: Skin warm and dry HEENT: No gross abnormalities identified.No pallor or scleral icterus. NECK: Supple, no JVD, no bruit. NEURO/PSHCY: Alert and oriented x3; appropriate behavior and responses and responses LUNGS: Clear to auscultation bilaterally; normal respiratory effort. HEART: Rate and rhythm irregular with no evident murmur; no gallop appreciated. ABDOMEN: Soft, non tender. MUSCULOSKELETAL: No gross deformities. EXTREMITIES: Warm There is no edema noted. Meds: Current Outpatient Medications Medication Instructions ALPRAZolam (Xanax) 0.5 mg tablet oral, 2 times daily, Take 1 - 1.5 tablets ascorbic acid, vitamin C, 500 mg capsule 1 capsule, oral, Daily carvedilol (Coreg) 6.25 mg tablet 1 tablet, oral, 2 times daily with meals cetirizine (ZYRTEC) 10 mg, oral, Nightly furosemide (Lasix) 20 mg tablet 1 tablet, oral, Daily niacin 500 mg tablet 2 tablets, oral, Daily rivaroxaban (XARELTO) 20 mg, oral, Daily with evening meal, Take with food. sacubitriL-valsartan (Entresto) 24-26 mg tablet 1 tablet, oral, 2 times daily spironolactone (Aldactone) 25 mg tablet 0.5 tablets, oral, Daily traMADol (Ultram) 50 mg tablet 1 tablet, oral, Every 6 hours PRN warfarin (COUMADIN) 5 mg, oral, Every evening, Take as directed. zinc acetate 25 mg (zinc) capsule 1 capsule, oral, Daily Allergies Allergen Reactions Nsaids (Non-Steroidal Anti-Inflammatory Drug) Unknown Hmvofvg-Jqv-Apv Reductase Inhibitors Unknown LABS: Sodium 137 potassium 4.1 creatinine 0.78 GFR greater than 60 glucose 133 hemoglobin 14.4 hematocrit 44 platelets 235 Problem List: Patient Active Problem List Diagnosis Date Noted USP current use of 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 therapy 09/07/2023 Paroxysmal atrial fibrillation (CMS/HCC) 09/05/2023 CAD (coronary artery disease) 06/22/2023 Class 1 obesity with body mass index (BMI) of 30.0 to 30.9 in adult 06/22/2023 Former smoker 06/22/2023 Hypertension, benign 06/22/2023 Dilated cardiomyopathy (CMS/HCC) 06/22/2023 Obstructive sleep apnea syndrome 06/22/2023 Overweight with body mass index (BMI) of 29 to 29.9 in adult 06/22/2023 SOB (shortness of breath) 06/22/2023 Assessment: COVID infection with respiratory symptoms December 2022 Systolic congestive 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 January 2023 class IV January 2023 presented to [facility] Cardiac cath: LVEF 20% LVEDP was 25, minimal coronary artery disease January 2023 TTE LVEF 40 to 45% with hypokinesis of inferior lateral and basal apical MUGA scan August 2023 LVEF 31%, in the setting of atrial fibrillation As of 09/29/2023 visit functional class II, not volume overloaded Primary hypertension optimal in office No orthostatic symptoms Dilated cardiomyopathy (CMS/HCC), nonischemic Initial diagnosis January 2023 NICM HFrEF 31% Aug 2023 MUGA (January 2023 cath EF 20%: January 2023 TTE EF 40-45%: May 2023 MUGA EF 33%) ? Viral FC II Stage C Narrow QRS of 94 ms based on EKG of 09/05/2023 Paroxysmal atrial fibrillation ([facility]) Reports Applewatch reporting afib starting Jun 29, 2023. Jul 22, 2023 holter afib through out. He was instructed to start Eliquis, reports that cost was prohibitive, currently on warfarin, also likes to see the effects of his medications being measured enrolled in Coumadin clinic at [place]. Most recent INR 3.0, warfarin dose will be reduced slightly. Echocardiogram January 2023-LVEF 40 to 45% moderate to severe hypokinesis inferolateral and basal septal villar aortic sclerosis trace tricuspid regurgitation left atrial diameter 4.1 cm LV end-systolic diameter 4 cm RV systolic pressure 27 mmHg left atrial volume index 32.5 mL/m Class 1 obesity with body mass index (BMI) of 30.0 to 30.9 in adult Reviewed the merits of healthy lifestyle choices on overall cardiovascular health. 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 Patient was informed that the patient has an irregularly irregular heart rate, and it is called atrial fibrillation. The pathophysiology of atrial fibrillation, some of the precipitating factors, and the risk of stroke with atrial fibrillation was discussed. Patient was informed that there are different modalities for creaking atrial fibrillation, and the plan of treatment would be individualized to the patient's needs and response. The downside of warfarin is in need for frequent blood draws, the interaction of food with INR level, and variability of INR level based on other medications such as antibiotic usage. The downside of warfarin also include erratic anticoagulation and the need for frequent blood monitoring. Patient was also told that if there is any evidence of bleeding such as black stool or blood in the stool or traumatic falls, prompt medical attention should be sought. Also discussed the fact that atrial fibrillation management includes controlling the rate and establishing normal rhythm. Different medications will be trialed based on patient's characteristics for either approach. Patient may need electrical cardioversion with or without transesophageal echocardiogram, and further discussion will ensue if either procedure needs to be done. Fall risk was also assessed. There was discussion about fall prevention, and in the event of a fall, patient the need to be evaluated to assess injuries, particularly bleeding issues. Patient shouldl report promptly in the event of any noticeable bleeding such as blood in the stool or black stool bleeding from the nose etc. 2. Guideline directed medical therapy for nonischemic cardiomyopathy and systolic congestive 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 class II-Entresto has been approved, so he will start Entresto, we will change dose to 24/ p.o. twice daily unable to increase dose further because of borderline blood pressure I will decrease his Lasix from 20 mg daily to 10 mg daily. If no evidence of fluid retention with this down titration we will discontinue Lasix altogether. Farxiga remains prohibitively expensive. At next visit we will see if Jardiance is an option. Hesitate to start Jardiance now given up titration of Entresto, I am concerned that blood pressure will drop too much. 3. As far as electrical cardioversion of atrial fibrillation-I think he should be given a chance, it might help his cardiomyopathy. Talked about NABOR guided electrical cardioversion and electrical cardioversion after 4 to 6 weeks of anticoagulation-patient at that time expresses concern for intermittent dysphagia, food gets stuck in the center of his chest, and sometimes he throws up. He also has had cervical spine fusion, however his neck movements are not limited. Given that he is clinically doing well, we will continue anticoagulation guided electrical cardioversion. 4. Patient is recommended to have PT and INR drawn every week for the next 6 weeks, follow-up after that, and if INRs have been consistently within range, we will plan electrical cardioversion. Follow up : 6 weeks 1. Persistent atrial fibrillation (CMS/HCC) 2. Paroxysmal atrial fibrillation (CMS/HCC) Follow Up In Cardiology 3. Non-ischemic cardiomyopathy (CMS/HCC) 4. 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 congestive 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, NYHA class 2 (CMS/HCC) 5. Coronary artery disease involving prairie band coronary artery of prairie band heart without angina pectoris 6. SOB (shortness of breath) 7. Hypertension, benign 8. 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 Obstructive sleep apnea syndrome 10. Former smoker 11. Obesity (BMI 30.0-34.9) 12. Personal history of COVID-19 13. Dilated cardiomyopathy (CMS/HCC) 14. Medication course changed I spent close to 45 minutes in coordinating care for this patient. This has included chart review, patient discussion addressing high risk medications and coordinating future care. Scribe Attestation By signing my name below, I, Katty Linda KEENE , Scribe attest that this documentation has been prepared under the direction and in the presence of Mary Neal MD. Provider Attestation - Scribe documentation All medical record entries made by the Scribe were at my direction and personally dictated by me. I have reviewed the chart and agree that the record accurately reflects my personal performance of the history, physical exam, discussion and plan. Mary Neal MD FACC documented in this encounter [facility] Work Phone: 09-29-2023 Instructions Katty Best LPN - 09/29/2023 1:45 PM EST Please bring all medicines, vitamins, and herbal supplements with you when you come to the office. Prescriptions will not be filled unless you are compliant with your follow up appointments or have a follow up appointment scheduled as per instruction of your physician. Refills should be requested at the time of your visit. glass of red wine daily Patient will need weekly INR's for possible DCC, notify [facility] documented in this encounter [facility] Work Phone: 09-13-2023 Evaluation note Encounter Date Diagnosis Assessment Notes Sep, Chronic HFrEF (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 with reduced ejection fraction) (ICD-10 - I50.22) [facility]: LVEF 20%, mild CAD - 01/2023 Instructed on low salt diet, exercise and daily weights. Instructed to notify office for any unexpected weight gain > 3lbs and/or increased dyspnea, difficulty breathing during sleep, worsening lower extremity swelling, chest pain or lightheadedness. Reviewed GDMT w/ beta blockers, MATT/ARB/ARNI, MRA and SGLT-2 Spent a great deal of time explaining the rationale for GDMT and improved mortality benefits. Sep, Nonischemic cardiomyopathy (ICD-10 - I42.8) Healthy, low salt diet. Low level exercise as tolerated. Maintain ideal BMI. f/u Cardiology appt scheduled Sep, Paroxysmal atrial fibrillation (ICD-10 - I48.0) This patient is rate controlled. This patient is anticoagulated to prevent thromboembolic events. 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 Discussed cardioversion following 4 wks of AC therapy to prevent thromboembolic events. Discussed repeat Echo/MUGA to assess LVEF Sep, JANETTE (obstructive sleep apnea) (ICD-10 - G47.33) AHI 39, Psat 83% This patient is aware of the benefits associated with JANETTE: With continued use, the patient reduces the risk for [place], CVA, HTN, cardiac dysrhythmias and sudden cardiac deaths.The patient is also aware of the association between JANETTE and morning headaches, daytime somnolence, fatigue and obesity, which also has been improved with continued use.The patient is compliant with treatment, wearing the equipment every night for greater than 4 hours.The patient is instructed to continue use of the CPAP for JANETTE treatment. Sep, Lumbar spondylosis (ICD-10 - M47.816) The patient is instructed to avoid bending, twisting or lifting. They are to use intermittent heat and ice as needed. They may schedule a massage or gentle manipulation. They may safely use Tylenol as needed. Sep, Other obesity due to excess calories (ICD-10 - E66.09) This patient has been instructed on a low-fat, high-fiber diet. They are instructed to reduce calories, portion sizes and snacks. It is recommended that they exercise for 30 minutes, 3-5 times weekly. Sep, Body mass index [BMI] 31.0-31.9, adult (ICD-10 - Z68.31) [facility] Other 12-09-2023 Evaluation note* Encounter Date Diagnosis Assessment Notes Treatment Notes Treatment Clinical Notes Sep, Lumbar spondylosis (ICD-10 - M47.816) [facility] Other 12-06-2023 Evaluation note* Encounter Date Diagnosis Assessment Notes Treatment Notes Treatment Clinical Notes Sep, Paroxysmal atrial fibrillation (ICD-10 - I48.0) [facility] Other 12-06-2023 Evaluation + Plan note* Assessment & Plan Note - FREDIS Flowers - 09/07/2023 9:51 AM ESTAssociated Problem(s): Obstructive sleep apnea syndrome Remains compliant with BiPAP [facility] [facility] Work Phone: 1([phone]) 471-601912-06-2023 Miscellaneous Notes* Assessment & Plan Note - FREDIS Flowers - 09/07/2023 9:51 AM ESTAssociated Problem(s): Obstructive sleep apnea syndrome Remains compliant with BiPAP * Assessment & Plan Note - FREDIS Flowers - 09/07/2023 9:50 AM EST Associated Problem(s): USP current use of 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 therapy CHADS VASc 3 After lengthy discussion regarding the importance of cardioembolic protection he agrees to begin treatment with Xarelto 20 mg daily. CRCL: 116 Provided with samples today and patient assistance forms * Assessment & Plan Note - FREDIS Flowers - 09/07/2023 9:47 AM EST Associated Problem(s): Class 1 obesity with body mass index (BMI) of 30.0 to 30.9 in adult Reviewed the merits of healthy lifestyle choices on overall cardiovascular health. * Assessment & Plan Note - FREDIS Flowers - 09/07/2023 9:47 AM EST Associated Problem(s): Paroxysmal atrial fibrillation (CMS/HCC) Reports Applewatch reporting afib starting Jun 29, 2023. Jul 22, 2023 holter afib through out. He was instructed to start Eliquis but 'did not like what was seeing on TV' so did not start. Cost concerns. ECG in office today afib at 97 bpm * Assessment & Plan Note - FREDIS Flowers - 09/07/2023 9:45 AM EST Associated Problem(s): Dilated cardiomyopathy (CMS/HCC) Initial diagnosis January 2023 NICM HFrEF 31% Aug 2023 MUGA (January 2023 cath EF 20%: January 2023 TTE EF 40-45%: May 2023 MUGA EF 33%) FC II Stage C GDMT: Coreg 6.25 BID: March 02, 2023 Aldactone 12.5mg: March 02, 2023 Entresto 24/26mg (patient only taking once daily): March 02, 2023. At Jun 2023 OV I increased Entresto to BID dosing but patient reduced back to once daily Jardiance: added April 2023 but reports intolerance Narrow QRS * Assessment & Plan Note - FREDIS Flowers - 09/07/2023 9:26 AM EST Associated Problem(s): Hypertension, benign optimal in office * Assessment & Plan Note - FREDIS Flowers - 09/07/2023 9:26 AM EST Associated Problem(s): Cardiac and Vasculature January 2023 presented to [facility] Cardiac cath: Normal coronaries, LVEF 20% January 2023 TTE LVEF 40 to 45% with hypokinesis of inferior lateral and basal apical documented in this [facility] Work Phone: [phone] 102-227712-06-2023 Evaluation + Plan note* Assessment & Plan Note - FREDIS Flowers - 09/07/2023 9:50 AM ESTAssociated Problem(s): 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 CHADS VASc 3 After lengthy discussion regarding the importance of cardioembolic protection he agrees to begin treatment with Xarelto 20 mg daily. CRCL: 116 Provided with samples today and patient assistance forms [facility] Work Phone: [phone]) 569-899812-06-2023 Evaluation + Plan note* Assessment & Plan Note - FREDIS Flowers - 09/07/2023 9:47 AM ESTAssociated Problem(s): Class 1 obesity with body mass index (BMI) of 30.0 to 30.9 in adult Reviewed the merits of healthy lifestyle choices on overall cardiovascular health. [facility] Work Phone: [phone]) 504-996012-06-2023 Evaluation + Plan note* Assessment & Plan Note - FREDIS Flowers - 09/07/2023 9:47 AM ESTAssociated Problem(s): Paroxysmal atrial fibrillation (CMS/HCC) Reports Applewatch reporting afib starting Jun 29, 2023. Jul 22, 2023 holter afib through out. He was instructed to start Eliquis but 'did not like what was seeing on TV' so did not start. Cost concerns. ECG in office today afib at 97 bpm [facility] Work Phone: [phone] Evaluation + Plan note* Assessment & Plan Note - FREDIS Flowers - 09/07/2023 9:45 AM ESTAssociated Problem(s): Dilated cardiomyopathy (CMS/HCC) Initial diagnosis January 2023 NICM HFrEF 31% Aug 2023 MUGA (January 2023 cath EF 20%: January 2023 TTE EF 40-45%: May 2023 MUGA EF 33%) FC II Stage C GDMT: Coreg 6.25 BID: March 02, 2023 Aldactone 12.5mg: March 02, 2023 Entresto 24/26mg (patient only taking once daily): March 02, 2023. At Jun 2023 OV I increased Entresto to BID dosing but patient reduced back to once daily Jardiance: added April 2023 but reports intolerance Narrow QRS [facility] Work Phone: [phone] Evaluation + Plan note* Assessment & Plan Note - FREDIS Flowers - 09/07/2023 9:26 AM ESTAssociated Problem(s): Hypertension, benign optimal in office [facility] Work Phone: [phone] Evaluation + Plan note* Assessment & Plan Note - FREDIS Flowers - 09/07/2023 9:26 AM ESTAssociated Problem(s): Cardiac and Vasculature January 2023 presented to [facility] Cardiac cath: Normal coronaries, LVEF 20% January 2023 TTE LVEF 40 to 45% with hypokinesis of inferior lateral and basal apical [facility] Work Phone: [phone] 533-988212-04-2023 History of Present illness Narrative* FREDIS Flowers - 09/05/2023 2:00 PM EST Chief Complaint I am good Reason for Visit 8 week follow up: medication change and testing results. Patient presents to the office today for outpatient follow-up for NICM. Last evaluated in clinic by myself Jun 2023. At time, Entresto was increased to twice daily dosing. Repeat MUGA was scheduled after 6 weeks of highest tolerated GDMT. Patient reports that after a couple days of twice daily dosing his Apple Watch notified him of irregular heart rate. He subsequently reduced Entresto to once daily. He called into the office reporting irregularity noted on Apple Watch, a subsequent 24-hour Holter showed A-fib throughout. He was instructed to begin Eliquis 5 mg twice daily. For a multitude of reasons including being afraid of what I see on TV and also cost he did not start Eliquis. There is multiple communications between Dr. Lucio regarding need for anticoagulation and GDMT. Continue to request for cardiac risk stratification and clearance for deviated septum repair was denied by Dr. Lucio until appropriate treatment of atrial fibrillation. Presents today ambulatory with steady gait. Accompanied by spouse Patient denies any hospitalizations or significant changes to interval medical history since last office follow-up. History of Present Illness Patient presents to the office with no voiced cardiovascular complaints. Ambulated in from the parking lot without complaints. Reportedly remains active installing a faucet, up and down ladder to fixhis TV antenna and polishing the floor. He denies any type of palpitations, no dyspnea on exertion.Denies any orthopnea or PND. Today his primary focus is deviated septum surgical procedure and obtaining cardiovascular clearance. In layman's terms, discussed cardiomyopathy and atrial fibrillation, need for cardioembolic protection to reduce stroke risk. Patient & spouse remains with tangential conversation. At this time, no cardiac clearance for deviated septum repair as per Dr. Lucio's recommendation. After approximately 30 minutes, there is agreement to begin Xarelto 20 mg daily and reinstitute appropriate dosing of Entresto. We reviewed MUGA scan showing continued decline in LVEF. EKG in office atrial fibrillation at 97 bpm. Lifestyle modifications for PAF reviewed includin. Limit alcohol intake: 1 glass of wine 2. Limit caffeine intake: limited 3. Discussed importance of optimal weight control and impact on PAF. Encourage to obtain optimal BMI. 4. Obstructive Sleep Apnea: compliant with Bipap Patient reports that overall has no complaint(s) of chest pain, dyspnea, exertional chest pressure/discomfort, fatigue, near-syncope, orthopnea, and syncope At this time: Atrial fib: needs to start xarelto, will change coreg to toprol for better rate control. Prior NSR 60's on coreg 6.25mg BID. NICM: GDMT needs optimized - Entresto to BID dosing. Recent MUGA does not document rhythm at time of testing. Will repeat once duration of normal sinus rhythm and correct Entresto dosing -determination regarding ICD at that time. Transfer Cardiology management to Dr. Neal for afib management Review of Systems Cardiovascular: Negative for chest pain, dyspnea on exertion, irregular heartbeat, leg swelling, near-syncope, orthopnea, palpitations, paroxysmal nocturnal dyspnea and syncope. Visit Vitals BP 124/76 (BP Location: Left arm, Patient Position: Sitting) Pulse 97 Ht 1.778 m (5' 10 ) Wt 99.3 kg (219 lb) BMI 31.42 kg/m Smoking Status Former BSA 2.21 m Physical Exam Vitals and nursing note reviewed. Constitutional: Appearance: Normal appearance. Cardiovascular: Rate and Rhythm: Normal rate. Rhythm irregularly irregular. Heart sounds: Normal heart sounds. Pulmonary: Effort: Pulmonary effort is normal. Breath sounds: Normal breath sounds. Musculoskeletal: Cervical back: Full passive range of motion without pain. Right lower leg: No edema. Left lower leg: No edema. Skin: General: Skin is cool. Neurological: Mental Status: He is alert and oriented to person, place, and time. Psychiatric: Attention and Perception: Attention normal. Mood and Affect: Mood normal. Behavior: Behavior is cooperative. Allergies Allergen Reactions Nuluwbh-Ltf-Lhm Reductase Inhibitors Unknown Current Outpatient Medications Medication Instructions ALPRAZolam (Xanax) 0.5 mg tablet oral, 2 times daily, Take 1 - 1.5 tablets ascorbic acid, vitamin C, 500 mg capsule 1 capsule, oral, Daily carvedilol (Coreg) 6.25 mg tablet 1 tablet, oral, 2 times daily with meals cetirizine (ZYRTEC) 10 mg, oral, Nightly furosemide (Lasix) 20 mg tablet 1 tablet, oral, Daily niacin 500 mg tablet 2 tablets, oral, Daily rivaroxaban (XARELTO) 20 mg, oral, Daily with evening meal, Take with food. sacubitriL-valsartan (Entresto) 24-26 mg tablet 1 tablet, oral, 2 times daily spironolactone (Aldactone) 25 mg tablet 0.5 tablets, oral, Daily traMADol (Ultram) 50 mg tablet 1 tablet, oral, Every 6 hours PRN zinc acetate 25 mg (zinc) capsule 1 capsule, oral, Daily Assessment: Cardiac and Vasculature January 2023 presented to [facility] Cardiac cath: Normal coronaries, LVEF 20% January 2023 TTE LVEF 40 to 45% with hypokinesis of inferior lateral and basal apical Hypertension, benign optimal in office Dilated cardiomyopathy (CMS/HCC) Initial diagnosis January 2023 NICM HFrEF 31% Aug 2023 MUGA (January 2023 cath EF 20%: January 2023 TTE EF 40-45%: May 2023 MUGA EF 33%) FC II Stage C GDMT: Coreg 6.25 BID: March 02, 2023 Aldactone 12.5mg: March 02, 2023 Entresto 24/26mg (patient only taking once daily): March 02, 2023. At Jun 2023 OV I increased Entresto to BID dosing but patient reduced back to once daily Jardiance: added April 2023 but reports intolerance Narrow QRS Paroxysmal atrial fibrillation (CMS/HCC) Reports Applewatch reporting afib starting Jun 29, 2023. Jul 22, 2023 holter afib through out. He was instructed to start Eliquis but 'did not like what was seeing on TV' so did not start. Cost concerns. ECG in office today afib at 97 bpm Class 1 obesity with body mass index (BMI) of 30.0 to 30.9 in adult Reviewed the merits of healthy lifestyle choices on overall cardiovascular health. USP current use of 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 therapy CHADS VASc 3 After lengthy discussion regarding the importance of cardioembolic protection he agrees to begin treatment with Xarelto 20 mg daily. CRCL: 116 Provided with samples today and patient assistance forms Obstructive sleep apnea syndrome Remains compliant with BiPAP Plan: Through informed decision making process incorporating patients unique circumstances, the followingtreatment plan will be initiated: 1. Prescription drug management of cardiovascular medication for efficacy, adherence to treatment, side effect assessment and polypharmacy. Current treatment clinically warranted and to continue withfollowing modifications: - Begin Xarelto 20mg daily to reduce risk of stroke - Entresto needs to be taken twice daily 2. Please complete patient assistance forms for xarelto and entresto 3. Return for follow-up; in the interim, contact the office if new symptoms arise. Dr. Neal in 3 weeks (make sure you have been taking Xarelto daily, Dr. Neal may consider cardioversion) Karlo Aldridge MSN, PEDIATRIC PHYSICIAN ASSISTANT-CRUSHER LOADER EQUIPMENT OPERATOR, [facility] Please excuse any errors in grammar or translation related to this dictation. Voice recognition software was utilized to prepare this document. [facility] Work Phone: [phone]) 807-273612-04-2023 Instructions* Patient Instructions* FREDIS Flowers - 09/05/2023 2:00 PM EST Please bring all medicines, vitamins, and herbal supplements with you when you come to the office. Prescriptions will not be filled unless you are compliant with your follow up appointments or have a follow up appointment scheduled as per instruction of your physician. Refills should be requested at the time of your visit. EKG done in office today PLAN: Through informed decision making process incorporating patients unique circumstances, the followingtreatment plan will be initiated: 1. Prescription drug management of cardiovascular medication for efficacy, adherence to treatment, side effect assessment and polypharmacy. Current treatment clinically warranted and to continue withfollowing modifications: - Begin Xarelto 20mg daily to reduce risk of stroke - Entresto needs to be taken twice daily 2. Please complete patient assistance forms for xarelto and entresto 3. Return for follow-up; in the interim, contact the office if new symptoms arise. Dr. Neal in 3 weeks [facility] Work Phone: 1(112) [phone] Evaluation note* Encounter Date Diagnosis Assessment Notes Treatment Notes Treatment Clinical Notes May, ASHD (arteriosclerot ic heart disease) (ICD-10 - I25.10) This patient is stable without activity related CP, dyspnea or lightheadedness. They are instructed to continue exercise and AHA diet plan. May, Chronic HFrEF (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 with reduced ejection fraction) (ICD-10 - I50.22) [facility]: LVEF 20%, mild CAD - 01/2023 Instructed on low salt diet, exercise and daily weights. Instructed to notify office for any unexpected weight gain > 3lbs and/or increased dyspnea, difficulty breathing during sleep, worsening lower extremity swelling, chest pain or lightheadedness. Reviewed GDMT w/ beta blockers, MATT/ARB/ARNI, MRA and SGLT-2 May, JANETTE (obstructive sle ep apnea) (ICD-10 - G47.33) AHI 39, Psat 83% This patient is aware of the benefits associated with JANETTE: With continued use, the patient reduces the risk for [place], CVA, HTN, cardiac dysrhythmias and sudden cardiac deaths.The patient is also aware of the association between JANETTE and morning headaches, daytime somnolence, fatigue and obesity, which also has been improved with continued use.The patient is compliant with treatment, wearing the equipment every night for greater than 4 hours.The patient is instructed to continue use of the CPAP for JANETTE treatment. May, Primary hypertension (ICD-10 - I10) This patient is instructed to consume a healthy, low-fat, low-salt diet. They are also encouraged to continue exercise to achieve/maintain a normal BMI. May, Hypercholesterolemia (ICD-10 - E78.00) Instructed on diet and exercise with continued statin therapy.Discussed the beneficial effects of lowering cholesterol in reducing the risk for cerebrovascular and cardiovascular disease. May, HALEY (generalized anx iety disorder) (ICD-10 - F41.1) Healthy diet, exercise and keep active May, Cervical spondylosis (ICD-10 - M47.812) ROM exercises, heat/ice and massage. Tramadol for severe pain. May, Lumbar spondylosis (ICD-10 - M47.816) The patient is instructed to avoid bending, twisting or lifting. They are to use intermittent heat and ice as needed. They may schedule a massage or gentle manipulation. They may safely use Tylenol as needed. [facility] Other 07-14-2023 Evaluation note* Encounter Date Diagnosis Assessment Notes Treatment Notes Treatment Clinical Notes Apr, Chronic HFrEF (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 with reduced ejection fraction) (ICD-10 - I50.22) LHC: LVEF 20%, mild CAD - 01/2023 [facility] Other 07-11-2023 Evaluation note* Encounter Date Diagnosis Assessment Notes Treatment Notes Treatment Clinical Notes Apr, JANETTE (obstructive sleep apnea) (ICD-10 - G47.33) AHI 39, Psat 83% [facility] Other 06-04-2023 Evaluation note* Encounter Date Diagnosis Assessment Notes Treatment Notes Treatment Clinical Notes Mar, Primary hypertension (ICD-10 - I10) Mar, Cervical spondylosis (ICD-10 - M47.812) [facility] Other 06-04-2023 Evaluation note* Encounter Date Diagnosis Assessment Notes Treatment Notes Treatment Clinical Notes Mar, Cervical spondylosis (ICD-10 - M47.812) [facility] Other 05-31-2023 Discharge summary Author Papo Lucio [facility] March 02, 2023 3:18pm Note Date/Time March 02, 2023 3:16p m [facility] [address] [place] [address] Discharge Summary Signed Patient: Vick Mercado MR#: [id number] : 1955 Acct:[id number] Age/Sex: 67 / M Adm Date: 3 Loc: Room: Attending Dr: Papo Lucio DO Copies to: DO Papo Crandall DO~ Providers Date of Discharge: 03/02/23 Discharging Provider: Papo Lucio Primary Care Provider: Jairo Corbin Discharge Diagnosis (1) CHF (congestive 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): (2) Hypertension: (3) Sleep apnea treated with nocturnal bilevel positive airway pressure (BPAP): Final Diagnosis Final Discharge Diagnosis: 1. Severe nonischemic cardiomyopathy 2. Minimal coronary artery disease 3. Essential hypertension 4. Sleep apnea Summary Hospital Course Hospital course: 67-year-old gentleman recently hospitalized for new onset left ventricular systolic 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 (no evidence of acute coronary syndrome), and here today for outpatient evaluation for coronary artery disease. Left heart catheterization revealed mild CAD, severe LV dysfunction, with ejection fraction of 20% Medical therapy is warranted, Entresto will be initiated in addition to other GDMT which is already on board, eventual LV functional assessment will be reassessed for consideration of AICD or advanced therapies Condition Condition at Discharge: Stable Status at Discharge Functional status at discharge: independent ambulation Overall status at discharge: patient is back to baseline Time Spent with Patient Time spent providing/coordinating discharge services (# min): 15 Surgeries and Procedures Operation Date: 03/02/23 14:15 Actual Procedures p CL LHC & COR Angio - W Bonilla Lucio DO Complications Complications: None Diagnostic Studies Completed and Pending Studies Labs on day of discharge: 03/02/23 12:25: Triglycerides 171 H, Cholesterol 225 H, LDL Cholesterol, Calc 148 H, VLDL Cholesterol 34, HDL Cholesterol 43, Cholesterol/HDL Ratio 5.2 03/02/23 12:25: PT 12.0, INR 1.0, APTT 30.5 Exam Physical Exam Vital Signs: Temp Pulse Resp BP Pulse Ox O2 Del Method 97.1 F L 84 14 141/95 H 100 Room Air 03/02/23 12:17 03/02/23 12:17 03/02/23 12:17 03/02/23 12:17 03/02/23 12:17 03/02/23 12:17 Discharge Plan Discharge Plan Patient Disposition: Home Diet: Low-Sodium and Low-Cholesterol Additional Instructions: DISCHARGE INSTRUCTIONS FOR CARDIAC PERMIT AGENT PHONE NUMBER OF YOUR PHYSICIAN: [phone] PROCEDURE: Heart Cath The following instructions have been prepared to help you care for yourself, or be cared for upon your return home. 1. You were given conscious sedation. Do not operate a vehicle, power tools, make important decisions, or drink alcohol for 24 hours. You might be drowsy orlight headed. Return to the Emergency Room if you have trouble breathing, walking or nausea and vomiting. 2. FOR BLEEDING: Apply continuous pressure to the site and call 911. 3. Operative Site Care: Keep the dressing clean and dry. You may change the dressing only if soiled or wet. You may remove the dressing the following morning. You may wash over the puncture site in the shower. If the puncture site is at the wrist no soaking for 3 days. Some bruising or slight swelling may be present. -Signs of infection are redness, warmth, swelling, getting more sore, colored drainage, fever or chills. -Should the arm or leg become cold, numb, blue or white, call the radiotelegraph operator immediately. 4. ACTIVITY: You are advised to go directly home from the hospital. Restrict your activities for the rest of the day. Resume light or normal activities tomorrow. Do not engage in any activity that will stress the puncture site. Avoid heavy lifting (over 15 lbs.), straining or bending at the catheter site for 48 hours after discharge. If the puncture site is at the wrist do not manipulate wrist for 24 hours and no lifting more than 3 lbs for 3 days. 5. DIET:You may eat your regular diet when you desire. 6. MEDICATIONS: Resume your daily prescription schedule. Prescriptions may be sent with you if needed. Use as directed. When taking pain medications, you may experience dizziness or drowsiness. Do not drink alcohol or drive when taking pain medications. 7. If you should experience episodes of angina e.g. chest discomfort, heaviness, tightness, pressure, burning, with or without radiation to the neck, jaws, arms, or back- Use 1 Nitrostat under your tongue every 5-10 minutes, and up to 3 tablets. If no relief- Call 911 and go to the nearest Emergency Room. -Notify the office for recurrent angina, chest pain or other concerns. You may NOT drive yourself home! Follow the medication instructions provided on your discharge. If the dosages and instructions on this sheet differ from the dosage and instructions on the bottle, follow the instructions on the bottle. [facility] is not responsible for incorrect prescription information provided by thepatient during their visit. Do not stop your medications without consulting your health care provider. Please take the list with you to your next doctor's appointment. Prescriptions: New Entresto 24-26 mg tablet 1 tab PO BID Qty: 60 3RF Continued tramadol 50 mg Tablet 50 mg PO Q6H PRN (Reason: Pain) alprazolam 0.5 mg Tablet 0.75 mg PO BID melatonin 5 mg Tablet 5 mg PO HS PRN (Reason: Sleep) zinc 25 mg Tablet 25 mg PO HS ascorbic acid (vitamin C) [Vitamin C] 500 mg Tablet,Chewable 500 mg PO DAILY cholecalciferol (vitamin D3) [Vitamin D3] 50 mcg (2,000 unit) Capsule 50 mcg PO DAILY carvedilol 6.25 mg Tablet 6.25 mg PO BID.WITH.MEALS 30 Days Qty: 60 12RF potassium chloride [Klor-Con 10] 10 mEq Tablet Extended Release 20 meq PO DAILY 30 Days Qty: 60 12RF spironolactone 25 mg Tablet 12.5 mg PO DAILY 30 Days Qty: 15 12RF magnesium oxide 400 mg (241.3 mg magnesium) Tablet 400 mg PO DAILY 30 Days Qty: 30 12RF aspirin [Children's Aspirin] 81 mg Tablet,Chewable 81 mg PO DAILY 90 Days Qty: 90 3RF furosemide [Lasix] 20 mg tablet 20 mg PO DAILY 30 Days Qty: 30 12RF Discontinued losartan 25 mg Tablet 25 mg PO QAM 30 Days Qty: 30 12RF Follow Up: Papo Lucio DO [Active Staff - D.O.] - Jairo Corbin DO [Primary Care Provider] - Documented By: Papo Lucio DO 03/02/231513 Signed By: <Electronically signed by Papo Lucio DO> 03/02/231517 [facility] Work Phone: 1(253) 184-307105-31-2023 [facility] Evaluation note* Encounter Date Diagnosis Assessment Notes Treatment Notes Treatment Clinical Notes January, Nonischemic cardiomyopathy (ICD-10 - I42.8) January, Chronic HFrEF (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 with reduced ejection fraction) (ICD-10 - I50.22) [facility]: LVEF 20%, mild CAD - 01/2023 [facility] Other 05-30-2023 Evaluation note* Encounter Date Diagnosis Assessment Notes Treatment Notes Treatment Clinical Notes January, ASHD (arteriosclerot ic heart disease) (ICD-10 - I25.10) This patient is stable without activity related CP, dyspnea or lightheadedness. They are instructed to continue exercise and AHA diet plan. January, Acute HFrEF (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 with reduced ejection fraction) (ICD-10 - I50.21) Instructed on low salt diet, exercise and daily weights. Instructed to notify office for any unexpected weight gain > 3lbs and/or increased dyspnea, difficulty breathing during sleep, worsening lower extremity swelling, chest pain or lightheadedness. Reviewed GDMT w/ beta blockers, MTAT/ARB/ARNI, MRA and SGLT-2 January, JANETTE (obstructive sle ep apnea) (ICD-10 - G47.33) This patient is aware of the benefits associated with JANETTE: With continued use, the patient reduces the risk for [place], CVA, HTN, cardiac dysrhythmias and sudden cardiac deaths.The patient is also aware of the association between JANETTE and morning headaches, daytime somnolence, fatigue and obesity, which also has been improved with continued use.The patient is compliant with treatment, wearing the equipment every night for greater than 4 hours.The patient is instructed to continue use of the CPAP for JANETTE treatment. Requesting re titration study January, Primary hypertension (ICD-10 - I10) This patient is instructed to consume a healthy, low-fat, low-salt diet. They are also encouraged to continue exercise to achieve/maintain a normal BMI. January, HALEY (generalized anx iety disorder) (ICD-10 - F41.1) Healthy diet, keep active w/o change in medications. January, Hypercholesterolemia (ICD-10 - E78.00) Instructed on diet and exercise with continued statin therapy.Discussed the beneficial effects of lowering cholesterol in reducing the risk for cerebrovascular and cardiovascular disease. January, Nocturia (ICD-10 - R35.1) January, Benign prostatic hyperplasia with lower urinary tract symptoms (ICD-10 - N40.1) Hydrate, avoid decongestants. Trial of Flonase has failed to improve symptoms. Unfortunately, he has several more pressing medical condtions. His symptoms should be tolerable No dysuria, hematuria, abdominal pain or fever. Call if any of these develop Sefaira Other 05-10-2023 Evaluation note* Encounter Date Diagnosis Assessment Notes Treatment Notes Treatment Clinical Notes January, Subacute maxillary sinusitis (ICD-10 - J01.00) Sefaira Other 05-09-2023 Evaluation note* Encounter Date Diagnosis Assessment Notes Treatment Notes Treatment Clinical Notes January, Medicare annual wellness visit, subsequent (ICD-10 - Z00.00) Personalized health advice was given to the beneficiary including a written plan for screenings discussed and provided. Advanced care planning reviewed and/or information given as requested. Additional counseling was provided here today in regards to, [ ]. The above visit was performed by [ ], under direct supervision of [ ]. Document reviewed and amended by provider signed below. Healthy diet and exercise. Reviewed age-appropriate preventive testing recommended. January, Primary hypertension (ICD-10 - I10) This patient is instructed to consume a healthy, low-fat, low-salt diet. They are also encouraged to continue exercise to achieve/maintain a normal BMI. January, JANETTE (obstructive sleep apnea) (ICD-10 - G47.33) This patient is aware of the benefits associated with JANETTE: With continued use, the patient reduces the risk for [place], CVA, HTN, cardiac dysrhythmias and sudden cardiac deaths.The patient is also aware of the association between JANETTE and morning headaches, daytime somnolence, fatigue and obesity, which also has been improved with continued use.The patient is compliant with treatment, wearing the equipment every night for greater than 4 hours.The patient is instructed to continue use of the CPAP for JANETTE treatment. January, Gynecomastia, male (ICD-10 - N62) Recommend dx mammogram January, HALEY (generalized anxiety disorder) (ICD-10 - F41.1) Healthy diet, exercise and keep active January, Chronic maxillary sinusitis (ICD-10 - J32.0) Saline lavage, Flonase, Jazmyne and broad spectrum antibiotics. No improvement, CT sinus and ENT referral January, Cervical spondylosis (ICD-10 - M47.812) ROM exercises, heat/ice and Tylenol. Tramadol for severe pain January, Lumbar spondylosis (ICD-10 - M47.816) The patient is instructed to avoid bending, twisting or lifting. They are to use intermittent heat and ice as needed. They may schedule a massage or gentle manipulation. They may safely use Tylenol as needed. January, Other obesity due to excess calories (ICD-10 - E66.09) January, Body mass index [BMI] 30.0-30.9, adult (ICD-10 - Z68.30) This patient has been instructed on a low-fat, high-fiber diet. They are instructed to reduce calories, portion sizes and snacks. It is recommended that they exercise for 30 minutes, 3-5 times weekly. January, High risk medication use (ICD-10 - Z79.899) January, Screening PSA (prostate specific antigen) (ICD-10 - Z12.5) Sefaira Other 03-15-2023 Evaluation note* Encounter Date Diagnosis Assessment Notes Treatment Notes Treatment Clinical Notes Dec, COVID-19 (ICD-10 - U07.1) Continue rest, Tylenol and finish antibiotics. Monitor for secondary infection. Self isolate at home. - Cannot work - avoid contact with others - avoid pets - wipe counters, door knobs if touched - if can't avoid leaving home, must wear mask to protect others - need to stay isolated for 10 days from onset of symptoms or contact with COVID positive individual - to discontinue isolation must be 10 days AND must be without fever for 24 hours AND symptoms must be improving. Always wear a mask in public places. Dec, Bronchitis, not specified as acute or chronic (ICD-10 - J40) Instructed to use Robitussin or Mucinex for cough, saline or Flonase NS for congestion, Tylenol for pain and fever. Sefaira Other 03-10-2023 Evaluation note* Encounter Date Diagnosis Assessment Notes Treatment Notes Treatment Clinical Notes Dec, Acute bronchitis due to other specified organisms (ICD-10 - J20.8) Instructed to use Robitussin or Mucinex for cough, saline or Flonase NS for congestion, Tylenol for pain and fever. Dec, Tachycardia (ICD-10 - R00.0) Avoid stimulants, caffiene and sudafed/ Hydrate Recommend ER evaluation w/ sustained tachycardia Sefaira Other 02-25-2023 Evaluation note* Encounter Date Diagnosis Assessment Notes Treatment Notes Treatment Clinical Notes Nov, Lumbar spondylosis (ICD-10 - M47.816) Sefaira Other chief complaint+Reason for visit Narrative* Chief Complaint Deviated Septum, Sle ep Apnea New Referral sob Reason for Visit Acute on chronic sys tolic (congestive) 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 Atrial fibrillation with rapid ventricular response CHF (congestive 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) Cognitive decline Dental caries Hypertension Orthopnea Sleep apnea treated with nocturnal bilevel positive airway pressure (BPAP) [facility] Work Phone: Chirc complaint+Reason for visit Narrative* Chief Complaint Deviated Septum, Sle ep Apnea New Referral Deviated Septum, Sleep Apnea sob [facility] Reason for Visit CHF (congestive hear t failure) Dental caries Hypertension Sleep apnea treated with nocturnal bilevel positive airway pressure (BPAP) Acute on chronic systolic (congestive) 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 Atrial fibrillation with rapid ventricular response Orthopnea [facility] Work Phone: Evaluation noteNo Information[employer] Other Evaluation note* Diagnosis Onset Date Resolution Status CHF (congestive 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) acute Dyspnea, paroxysmal nocturnal acute Orthopnea acute Sleep apnea treated with noc turnal bilevel positive airway pressure (BPAP) acute [facility] Work Phone: Evaluation noteNo assessment information available [facility] Work Phone: Evaluation note* Diagnosis Dilated cardiomyopathy (CMS/HCC)- Primary Other primary cardiomyopathies Paroxysmal atrial fibrillation (CMS/HCC) Atrial fibrillation Hypertension, benign Essential hypertension, benign Obstructive sleep apnea syndrome Obstructive sleep apnea (adult) (pediatric) Class 1 obesity due to excess calories with serious comorbidity and body mass index (BMI) of 30.0 to 30.9 in adult USP current use of 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 therapy documented in this encounter [facility] Work Phone: Evaluation note* Diagnosis Persistent atrial fibrillation (CMS/HCC) Atrial fibrillation Paroxysmal atrial fibrillation (CMS/HCC) Atrial fibrillation Non-ischemic cardiomyopathy (CMS/HCC) Other primary cardiomyopathies 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 congestive 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, NYHA class 2 (CMS/HCC) Coronary artery disease involving prairie band coronary artery of prairie band heart without angina pectoris SOB (shortness of breath) Shortness of breath Hypertension, benign Essential hypertension, benign 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 Obstructive sleep apnea syndrome Obstructive sleep apnea (adult) (pediatric) Former smoker Personal history of tobacco use, presenting hazards to health Obesity (BMI 30.0-34.9) Personal history of COVID-19 Dilated cardiomyopathy (CMS/HCC) Other primary cardiomyopathies Medication course changed documented in this encounter [facility] Work Phone: Evaluation note* Diagnosis Onset Date Resolution Status Acute on chronic systolic (congestive) 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 acute Atrial fibrillation with rapid ventricular response acute CHF (congestive 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) acute Cognitive decline acute Dental caries acute Hypertension acute Orthopnea acute Sleep apnea treated with noc turnal bilevel positive airway pressure (BPAP) acute 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 Non-ischemic cardiomyopathy (CMS/HCC) Other primary cardiomyopathies 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 congestive 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, NYHA class 2 (CMS/HCC) Coronary artery disease involving prairie band coronary artery of prairie band heart without angina pectoris Hypertension, benign Essential hypertension, benign Former smoker Personal history of tobacco use, presenting hazards to health documented in this encounter [facility] Work Phone: Evaluation note* Diagnosis Onset Date Resolution Status CHF (congestive 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) acute Dental caries acute Hypertension acute Sleep apnea treated with noc turnal bilevel positive airway pressure (BPAP) acute Acute on chronic systolic (congestive) 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 resolved Atrial fibrillation with rapid ventricular response resolved Orthopnea resolved [facility] Work Phone: Evaluation note* Diagnosis 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 congestive 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, NYHA class 2 (Multi) Persistent atrial fibrillation (Multi) Atrial fibrillation Pre-operative examination Unspecified pre-operative examination Former smoker Personal history of tobacco use, presenting hazards to health BMI 31.0-31.9,adult Coronary artery disease involving prairie band coronary artery of prairie band heart without angina pectoris Sinus bradycardia Other specified cardiac dysrhythmias Non-ischemic cardiomyopathy (Multi) Other primary cardiomyopathies Hypertension, benign Essential hypertension, benign documented in this encounter [facility] Work Phone: Evaluation note* Diagnosis Onset Date Resolution Status ASHD (arteriosclerotic heart disease) acute Atrial fibrillation acute Chronic HFrEF (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 with reduced ejection fraction) acute Elevated cholesterol acute Hypertension acute Nonischemic cardiomyopathy a cute JANETTE (obstructive sleep apnea) acute [facility] Work Phone: Evaluation note* Diagnosis 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 congestive 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, NYHA class 2 (Multi) Persistent atrial fibrillation (Multi) Atrial fibrillation Non-ischemic cardiomyopathy (Multi) Other primary cardiomyopathies documented in this encounter [facility] Work Phone: History general Narrative - Reported* Type Description Date Medical History fusion c4 5 6 7 Medical History ruptured liver/ hep c Medical History gall bladder Medical History kidney stones Surgical History rotator cuff repair Surgical History broken jaw Surgical History amputated fingers Hospitalization History see above Sefaira Other Hisrdvn general Narrative - Reported* Type Description Date Medical History fusion c4 5 6 7 Medical History ruptured liver/ hep c Medical History gall bladder Medical History kidney stones Medical History Nonischemic Cardiomyopathy Medical History HFrEF Surgical History rotator cuff repair Surgical History broken jaw Surgical History amputated fingers Surgical History [facility] 01/2023 Hospitalization History see above Sefaira Other Hisrhhw general Narrative - Reported* Type Description Date Medical History fusion c4 5 6 7 Medical History ruptured liver/ hep c Medical History gall bladder Medical History kidney stones Medical History Nonischemic Cardiomyopathy Medical History HFrEF Medical History JANETTE Surgical History rotator cuff repair Surgical History broken jaw Surgical History amputated fingers Surgical History [facility] 01/2023 Hospitalization History see above Sefaira Other Hisfexw general Narrative - Reported* Type Description Date Medical History fusion c4 5 6 7 Medical History ruptured liver/ hep c Medical History gall bladder Medical History kidney stones Medical History Nonischemic Cardiomyopathy Medical History HFrEF Medical History JANETTE Surgical History rotator cuff repair Surgical History broken jaw Surgical History amputated fingers Surgical History [facility] 01/2023 Surgical History CHF 01/2023 Hospitalization History see above Sefaira Other Hismrqc general Narrative - Reported* Type Description Date Medical History fusion c4 5 6 7 Medical History ruptured liver/ hep c Medical History gall bladder Medical History kidney stones Medical History Nonischemic Cardiomyopathy Medical History HFrEF Medical History JANETTE Medical History Atrial fibrillation Surgical History rotator cuff repair Surgical History broken jaw Surgical History amputated fingers Surgical History [facility] 01/2023 Surgical History CHF 01/2023 Hospitalization History see above Sefaira Other History of Present illness Narrative* The patient presents with non-ischemic 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 with reduced ejection fraction. The patient's last LV ejection fraction was 33%. The patient is NYHA functional Class II. This is stage C 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. * Symptoms: denies lower extremity edema, denies dyspnea on exertion, stable fatigue, denies exerciseintolerance, denies orthopnea and denies paroxysmal nocturnal dyspnea. Associated symptoms include recent 3 pounds weight gain. * Home Monitoring: The patient checks his weight regularly. Weight control has been good. * Medications: the patient is adherent with his medication regimen. He denies medication side effects. [id number] DO Work Phone: History of Present illness Narrative* The patient presents with non-ischemic 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 with reduced ejection fraction. The patient's last LV ejection fraction was 33%. The patient is NYHA functional Class II. This is stage C 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. * Symptoms: denies lower extremity edema, denies dyspnea on exertion, stable fatigue, denies exerciseintolerance, denies orthopnea and denies paroxysmal nocturnal dyspnea. Associated symptoms include recent 3 pounds weight gain. * Home Monitoring: The patient checks his weight regularly. Weight control has been good. * Medications: the patient is adherent with his medication regimen. He denies medication side effects. -[facility] 600 DO Work Phone: Hospital Discharge instructions Additional Instructions DISCHARGE INSTRUCTIONS FOR CARDIAC PERMIT AGENT PHONE NUMBER OF YOUR PHYSICIAN: [phone] PROCEDURE: Heart Cath The following instructions have been prepared to help you care for yourself, or be cared for upon your return home. 1. You were given conscious sedation. Do not operate a vehicle, power tools, make important decisions, or drink alcohol for 24 hours. You might be drowsy or light headed. Return to the Emergency Room if you have trouble breathing, walking or nausea and vomiting. 2. FOR BLEEDING: Apply continuous pressure to the site and call 911. 3. Operative Site Care: Keep the dressing clean and dry. You may change the dressing only if soiled or wet. You may remove the dressing the following morning. You may wash over the puncture site in the shower. If the puncture site is at the wrist no soaking for 3 days. Some bruising or slight swelling may be present. -Signs of infection are redness, warmth, swelling, getting more sore, colored drainage, fever or chills. -Should the arm or leg become cold, numb, blue or white, call the radiotelegraph operator immediately. 4. ACTIVITY: You are advised to go directly home from the hospital. Restrict your activities for the rest of the day. Resume light or normal activities tomorrow. Do not engage in any activity that will stress the puncture site. Avoid heavy lifting (over 15 lbs.), straining or bending at the catheter site for 48 hours after discharge. If the puncture site is at the wrist do not manipulate wrist for 24 hours and no lifting more than 3 lbs for 3 days. 5. DIET:You may eat your regular diet when you desire. 6. MEDICATIONS: Resume your daily prescription schedule. Prescriptions may be sent with you if needed. Use as directed. When taking pain medications, you may experience dizziness or drowsiness. Do not drink alcohol or drive when taking pain medications. 7. If you should experience episodes of angina e.g. chest discomfort, heaviness, tightness, pressure, burning, with or without radiation to the neck, jaws, arms, or back- Use 1 Nitrostat under your tongue every 5-10 minutes, and up to 3 tablets. If no relief- Call 911 and go to the nearest Emergency Room. -Notify the office for recurrent angina, chest pain or other concerns. You may NOT drive yourself home! Follow the medication instructions provided on your discharge. If the dosages and instructions on this sheet differ from the dosage and instructions on the bottle, follow the instructions on the bottle. [facility] is not responsible for incorrect prescription information provided by the patient during their visit. Do not stop your medications without consulting your health care provider. Please take the list with you to your next doctor's appointment.[facility] Work Phone: InstructionsNot on filedocumented in this encounter [facility] for [facility] Consultation (Routine) - Authorized Specialty Diagnoses / Procedures Referred By Contac t Referred To Contact Cardiology Diagnoses Non-ischemic cardiomyopathy (CMS/HCC) 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 congestive 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, NYHA class 2 (CMS/HCC) Procedures Follow Up In Cardiology Mary Neal MD [address] [facility] [address] [place] [id number] Mary Neal MD [address] [employer] [address] [place] [address] Referral ID Status Reason Start Date Expiration Date V isits Requested Visits Authorized [id number] Authorized 09/29/2023 09/28/2024 1 1 [facility] Work Phone: Reason for referral (narrative)* Consultation (Routine) - Authorized Specialty Diagnoses / Procedures Referred By Contac t Referred To Contact Cardiology Diagnoses 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 congestive 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, NYHA class 2 (CMS/HCC) Persistent atrial fibrillation (CMS/HCC) Procedures Follow Up In Cardiology Mary Neal MD [address] [place] [address] Mary Neal MD [address] [place] [address] Referral ID Status Reason Start Date Expiration Date V isits Requested Visits Authorized [id number] Authorized 11/10/2023 11/09/2024 1 1 [facility] Work Phone: Chief Complaint and Reason for Visit Chief Complaint Trouble Breathing Congestive Heart Failure Reason for Visit CHF (congestive hear t failure) Dyspnea, paroxysmal nocturnal Orthopnea Sleep apnea treated with nocturnal bilevel positive airway pressure (BPAP) Chief Complaint Deviated Septum, Sle ep Apnea Chief Complaint 3 MONTH CHECK UP Reason for Visit ASHD (arteriosclerot ic heart disease) Atrial fibrillation Chronic HFrEF (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 with reduced ejection fraction) Elevated cholesterol Hypertension Nonischemic cardiomyopathy JANETTE (obstructive sleep apnea) Family History No Family History Records Found Relationship Condition Age at Onset Recorded Date/T marielena father History of heart brad ve replacement with porcine valve Unknown Diabetes mellitus Unknown Not Specified Multiple myeloma Unknown grandparent Myocardial infarction Unknown Unknown Family Member Name Dates Details Family history of malignant melanoma: Mother(V16.8, Z80.8) Status:Active Heart valve replaced: Father (V43.3, Z95.2) Status:Active Unknown Family Member Name Dates Details Family history of malignant melanoma: Mother(V16.8, Z80.8) Status:Active Heart valve replaced: Father (V43.3, Z95.2) Status:Active Unknown Family Member Name Dates Details Family history of malignant melanoma: Mother(V16.8, Z80.8) Status:Active Heart valve replaced: Father (V43.3, Z95.2) Status:Active Unknown Family Member Name Dates Details Family history of malignant melanoma: Mother(V16.8, Z80.8) Status:Active Heart valve replaced: Father (V43.3, Z95.2) Status:Active Unknown Family Member Name Dates Details Family history of malignant melanoma: Mother(V16.8, Z80.8) Status:Active Heart valve replaced: Father (V43.3, Z95.2) Status:Active Relationship Condition Age at Onset Recorded Date/T marielena father History of heart brad ve replacement with porcine valve Unknown Diabetes mellitus Unknown Not Specified Multiple myeloma Unknown grandparent Myocardial infarction Unknown grandparent Leukemia Unknown Relationship Condition Age at Onset Recorded Date/T marielena father History of heart brad ve replacement with porcine valve Unknown Diabetes mellitus Unknown Not Specified Multiple myeloma Unknown grandparent Myocardial infarction Unknown grandparent Leukemia Unknown father Diabetes mellitus Unknown Not Specified Unknown Malignant neoplasm Unknown Advance Directives No Advanced Directives Records Found Advance Directive Response Recorded Date/ Time Advance Directives No June 12:53pm Advance Directive Response Recorded Date/ Time Advance Directives No June 11:53am Summary Purpose Chief Complaint * VICK MERCADO is being seen for follow-up of a hospitalization for. * Patient is a 68-year-old gentleman who returns for follow-up following recent diagnosis of severe nonischemic cardiomyopathy, initiating appropriate guideline directed medical therapies and is tolerating these therapies well. Ejection fraction is 20%. He is lost approximately 10 pounds since discharge, feeling much better clinically with no shortness of breath and now essentially asymptomatic. * He does have underlying obstructive sleep apnea, moderate obesity, no evidence of substantial coronary disease * NYHA classification currently is class II/C. * Recommendations, initiate Jardiance 10 mg daily, obtain a MUGA scan in the next 8 to 12 weeks, obtain Chem-6 and BNP we will follow-up in 12 weeks * Routine f/u: 'doing good' * VICK MERCADO is being seen for a 3 month follow-up of cardiomyopathy. * Routine f/u: 'doing good' * VICK MERCADO is being seen for a 3 month follow-up of cardiomyopathy. * Patient presents to the office ambulatory with steady gait, is accompanied by his . Last evaluated in clinic by Dr. Lucio April 2023. At that time, Jardiance was added to medical regimen. Unfortunately patient reports being unable to tolerate. It is also noted that he is only taking Entresto once daily. * Entresto patient assistance forms have been completed, he currently has a 3- month supply. * Patient presents today reportedly doing 'okay'. He continues to do yard work, works out in his garden and rides his tricycle approximately 15 miles a day. 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 He denies any dyspnea on exertion, no evidence orthopnea or PND, no edema. Denies dizziness or lightheadedness. Remains compliant with BiPAP treatment. * May 05, 2023 MUGA EF 33%. * GDMT: Entresto 24/26mg once daily January. * Coreg 6.25 & aldactone 12.5 * Plan today will be to optimize GDMT with correct dose of Entresto and repeat MUGA in September (NICM6 months on treatment) * Most recent potassium 4.4, creatinine 0.8 * January 2023: * Cath normal coronaries, LVEF 20% * January 2023 echo: * EF 40 to 45% with hypokinesis inferior lateral and basal apical * May 2023 MUGA * EF 33% Reason for Referral Specialty Diagnoses / Procedures Referred By Brandee silver Referred To Contact Cardiology Diagnoses 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 congestive 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, NYHA class 2 (Multi) Persistent atrial fibrillation (Multi) Non-ischemic cardiomyopathy (Multi) Procedures Transthoracic Echo Complete IA ECHO TTHRC R-T 2D W/WOM-MODE COMPL SPEC&COLR D Mary Neal MD [address] [place] [id number] Referral ID Status Reason Start Date Expiration Date Visits Requested Visits Authorized [id number] Pending Review Perform Procedure 01/30/2024 01/29/2025 1 1 Specialty Diagnoses / Procedures Referred By Brandee silver Referred To Contact Cardiology Diagnoses Persistent atrial fibrillation (Multi) Procedures Follow Up In Cardiology Mary Neal MD [address] [place] [id number] Mary Neal MD [address] [place] [id number] Referral ID Status Reason Start Date Expiration Date V isits Requested Visits Authorized [id number] Authorized 01/30/2024 01/29/2025 1 1 Specialty Diagnoses / Procedures Referred By Contac t Referred To Contact Diagnoses Persistent atrial fibrillation (Multi) Procedures ECG 12 Lead Mary Neal MD [address] [place] [address] Referral ID Status Reason Start Date Expiration Date V isits Requested Visits Authorized [id number] Authorized 01/30/2024 01/29/2025 1 1 Specialty Diagnoses / Procedures Referred By Contac t Referred To Contact Diagnoses Paroxysmal atrial fibrillation (CMS/HCC) Procedures ECG 12 Lead Karlo Aldridge, PEDIATRIC PHYSICIAN ASSISTANT-CRUSHER LOADER EQUIPMENT OPERATOR [address] [place] [address] Referral ID Status Reason Start Date Expiration Date V isits Requested Visits Authorized [id number] Pending Review 09/07/2023 09/06/2024 1 1 Specialty Diagnoses / Procedures Referred By Contac t Referred To Contact Cardiology Diagnoses Paroxysmal atrial fibrillation (CMS/HCC) Procedures Follow Up In Cardiology Karlo Aldridge PEDIATRIC PHYSICIAN ASSISTANT-CRUSHER LOADER EQUIPMENT OPERATOR [address] [place] [address] Mary Neal MD [address] [facility] [address] [place] [address] Referral ID Status Reason Start Date Expiration Date V isits Requested Visits Authorized [id number] Authorized 09/05/2023 09/04/2024 1 1 Additional Source Comments REASON FOR VISIT (unrecogniz ed section and content) Reason Comments Pre-op Clearance Dental Work 02/03 Specialty Diagnoses / Procedures Referred By Contac t Referred To Contact Cardiology Diagnoses 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 congestive 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, NYHA class 2 (Multi) Persistent atrial fibrillation (Multi) Procedures Follow Up In Cardiology Mary Neal MD [address] [facility] [address] [place] [address] Mary Neal MD [address] [facility] [address] [place] [address] Referral ID Status Reason Start Date Expiration Date V isits Requested Visits Authorized [id number] Authorized 11/10/2023 11/09/2024 1 1 Reason Comments Follow-up 6 weeks [facility] dischar ge 1-22 inpatient [facility] Specialty Diagnoses / Procedures Referred By Contac t Referred To Contact Cardiology Diagnoses Non-ischemic cardiomyopathy (CMS/HCC) 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 congestive 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, NYHA class 2 (CMS/HCC) Procedures Follow Up In Cardiology Mary Neal MD [address] [facility] [address] [place] [address] Mary Neal MD [address] [facility] [address] [place] [address] Referral ID Status Reason Start Date Expiration Date V isits Requested Visits Authorized [id number] Authorized 09/29/2023 09/28/2024 1 1 TCM Reason Comments Follow-up 2wk Specialty Diagnoses / Procedures Referred By Contac t Referred To Contact Cardiology Diagnoses Paroxysmal atrial fibrillation (CMS/HCC) Procedures Follow Up In Cardiology Karlo Aldridge, PEDIATRIC PHYSICIAN ASSISTANT-CRUSHER LOADER EQUIPMENT OPERATOR [address] [facility] [address] [place] [address] Mary Neal MD [address] [facility] [address] [place] [address] Referral ID Status Reason Start Date Expiration Date V isits Requested Visits Authorized [id number] Authorized 09/05/2023 09/04/2024 1 1 new referral Reason Comments Pre-op Clearance Follow-up Test results 3 month Follow upWellnessFRMCsinusesEye Issues/ Swelling on [id number] COVID +COVIDSick- [phone] Care Teams (unrecognized sec tion and content) Team Status: Active Member Role Status Dates Jairo Corbin , DO Primary Care Provider Active Team Status: Inactive Member Role Status Dates Jairo Corbin , DO Primary Care Provider Active Shalom Germain , DO Emergency Provider Active Jair Harp MD Admit Provider Active Brad Livingston , DO Attending Provider Active Bing Chong RN Other Provider Active W Bonilla Lucio , DO Other Provider Active Kings Banegas MD Other Provider Active Jorge Burger MD Other Provider Active John Pena MD Other Provider Active Dano Anderson MD Other Provider Active Karlo Aldridge , PEDIATRIC PHYSICIAN ASSISTANT Other Provider Active Mary Neal MD Other Provider Active Danny Teresa MD Other Provider Active Kerline Thompson MD Other Provider Active Sravani Spears , [facility] Other Provider Active Sparkle Joseph MD Other Provider Active Team Status: Inactive Member Role Status Dates Jairo Corbin , DO Primary Care Provider Active W Bonilla Lucio , DO Attending Provider Active Team Status: Inactive Member Role Status Dates Jairo Corbin , DO Primary Care Provider Active Jairo Wild , DO Attending Provider Active Batch Trucker Relationship Specialty Start Date End Date ShaquilleJairo Wally, DO [address] [facility] [place] [address] PCP - General Internal Medicine 08/23/23 Jairo Wild DO [address] [place] [address] Referring Physician Otolaryngology 09/05/23 Batch Trucker Relationship Specialty Start Date End Date ShaquilleJaior Edmarly, DO [address] [facility] [place] [address] PCP - General Internal Medicine 08/23/23 Jairo Wild DO [address] [place] [place] [address] Referring Physician Otolaryngology 09/05/23 Team Status: Inactive Member Role Status Dates Jairo Corbin DO Primary Care Provider Active Start: September 01, 2023 End: September 01, 2023 Jairo Wild DO Attending Provider Active S tart: September 01, 2023 End: September 01, 2023 Team Status: Inactive Member Role Status Dates Jairo Corbin DO Attending Provider Active Sta rt: September 13, 2023 End: September 13, 2023 Team Status: Active Member Role Status Dates Jairo Corbin DO Primary Care Provider Active Start: October 21, 2023 Marco A Salinas DO RES Active Start: October 21, 2023 Steven Aldridge MD Emergency Provider Active Star t: October 21, 2023 Bon Harman DO Admit Provider , Attending Provider, Other Provider Active Start: October 21, 2023 Batch Trucker Relationship Specialty Start Date End Date Jairo Corbin DO [address] [facility] [place] [address] [place] [address] PCP - General Internal Medicine 08/23/23 Jairo Wild DO [address] [place] [address] Referring Physician Otolaryngology 09/05/23 Team Status: Inactive Member Role Status Dates Jairo Corbin DO Primary Care Provider Active Start: September 13, 2023 End: September 13, 2023 Jairo Wild DO Attending Provider Active S tart: September 13, 2023 End: September 13, 2023 Team Status: Inactive Member Role Status Dates Jairo Corbin DO Attending Provider Active Sta rt: November 01, 2023 End: November 01, 2023 Batch Trucker Relationship Specialty Start Date End Date Jairo Corbin DO [address] [place] [address] PCP - General Internal Medicine 01/30/24 Jairo Wild DO [address] [place] [address] Referring Physician Otolaryngology 09/05/23 Team Status: Inactive Member Role Status Dates Jairo Corbin DO Primary Care Provide r, Attending Provider Active Start: January 31, 2024 End: January 31, 2024 Batch Trucker Relationship Specialty Start Date End Date Jairo Corbin DO [address] [place] [address] PCP - General Internal Medicine 01/30/24 Jairo Wild DO [address] [place] [address] Referring Physician Otolaryngology 09/05/23 (unrecognized sect ion and content) No Status Records FoundNo Status Records FoundNo Status Records FoundNo Status Records FoundNo Status Records FoundNo Status Records FoundNo Status Records Found INFORMATION SOURCE (unrecogn ized section and content) DATE CREATED AUTHOR 03/14/2023 [facility] DATE CREATED AUTHOR AUTHOR'S ORGANIZ ATION 05/11/2023 [facility] DATE CREATED AUTHOR AUTHOR'S ORGANIZ ATION 06/18/2023 [employer] DATE CREATED AUTHOR AUTHOR'S ORGANIZ ATION 07/13/2023 [facility] DATE CREATED AUTHOR AUTHOR'S ORGANIZ ATION 01/14/[address] [facility] DATE CREATED AUTHOR AUTHOR'S ORGANIZ ATION 02/17/2024 [facility] DATE CREATED AUTHOR AUTHOR'S ORGANIZ ATION 03/23/2024 [facility] Ambulatory Goals (unrecognized section and content) Goals may be documented in a n alternate section FOR RECORDS PERTAINING TO PATIENTS WHO ARE OR HAVE BEEN ENROLLED IN A CHEMICAL DEPENDENCY/SUBSTANCEABUSE PROGRAM, SOME INFORMATION MAY BE OMITTED. This clinical summary was aggregated from multiple sources. Caution should be exercised in using it in the provision of clinical care. This summary normalizes information from multiple sources, and as a consequence, information in this document may materially change the coding, format and clinical context of patient data. In addition, data may be omitted in some cases. CLINICAL DECISIONS SHOULD BE BASED ON THE PRIMARY CLINICAL RECORDS. [facility] [employer] provides no warranty or guarantee of the accuracy or completeness of information in this document.
[2024-03-23 20:17] LABS: Anion Gap 10.8; BUN Creatinine Ratio 22.9; Calcium 8.9 mg/dL (8.5-10.1); Carbon Dioxide 27.6 mmol/L (21.0-32.0); Chloride 102 mmol/L (98-107); Estimated GFR (African America >60 (>=60); Estimated GFR (Non-African Ame >60 (>=60); Glucose 143 mg/dL (74-106); Potassium 4.4 mmol/L (3.5-5.1); Sodium 136 mmol/L (136-145)
== END 2024-03-23 17:06 | disposition home or self-care (01) ==
LOC: LAB 17:08
PROVIDERS: PCP Internal Medicine; Visit Provider Nurse Practitioner
DX: I42.8 Other cardiomyopathies (principal)
CPT/HCPCS: 36415; 80048

== ENCOUNTER 2024-04-02 00:34 | Outpatient (RCR) | payer MEDICARE, OTHER, SELFPAY | END 2024-05-02 09:34 | disposition home or self-care (01) | LOC: MM 00:34 | PROVIDERS: PCP Internal Medicine; Visit Provider Internal Medicine | DX: Z51.81 Encounter for therapeutic drug level monitoring (principal); Z79.01 Long term (current) use of 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s; I48.91 Unspecified atrial fibrillation | CPT/HCPCS: 85610; G0463 ==

== ENCOUNTER 2024-05-03 00:15 | Outpatient (RCR) | payer MEDICARE, OTHER, SELFPAY | END 2024-06-01 09:14 | disposition home or self-care (01) | LOC: MM 00:15 | PROVIDERS: PCP Internal Medicine; Visit Provider Internal Medicine | DX: Z51.81 Encounter for therapeutic drug level monitoring (principal); Z79.01 Long term (current) use of 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s; I48.91 Unspecified atrial fibrillation | CPT/HCPCS: 85610; G0463 ==

== ENCOUNTER 2024-05-10 09:25 | Outpatient (OUT) | payer MEDICARE, OTHER, SELFPAY ==
--- OUTSIDE RECORDS SUMMARY | 2024-05-10 09:32 | XMS_ITS | CCD ---
Author Organization [facility] Care Team Providers Care Uniform Designer Name Role Phone Jairo Corbin Unavailable DO Jairo Corbin Primary Care Provider DO Shalom Germain Emergency Provider [facility] MD Jair Fuller Admit Provider DO Brad Livingston Attending Provider KRISTEN Chong Other Provider Unavailable DO Papo Lucio Other Provider [phone] MD Kings Banegas Other Provider [phone] MD Jorge Burger Other Provider [phone] MD John Pena Other Provider [phone] MD Dano Anderson Other Provider DIANA Ken Other Provider [phone] MD Mary Neal Other Provider MD Danny Teresa Other Provider MD Kerline Thompson Other Provider Tory [facility]- Sravani Julian Other Provider [phone] MD Sparkle Joseph Other Provider [phone] DO Papo Lucio Attending Provider DR JAIRO CORBIN Admitting Unavailable BALL, DR BARRETT Attending Unavailable BALL, DR BARRETT Consulting Unavailable BALL, DR BARRETT Primary Care Unavailable UNLU, ZARIA Consulting Unavailable BALL, DR BARRETT Attending Unavailable BALL, DR BARRETT Consulting Unavailable SHAQUILLE, DR BARRETT Primary Care Unavailable BALL, DR BARRETT Admitting Unavailable WOODGATE, DR IVÁN Carter Consulting Unavailable BALL, DR BARRETT Attending Unavailable BALL, DR BARRETT Consulting Unavailable SHAQUILLE, DR BARRETT Primary Care Unavailable SHAQUILLE, DR BARRETT Admitting Unavailable WEST, DR IVÁN Carter Consulting Unavailable Jairo Corbin E Unavailable Unavailable Unavailable Shaquille, Dr. Jairo Lo Primary Care Alli Lucio, Dr. Jorge Crystal Referring Unava ilarianna Lucio, Dr. Jorge Crystal Attending Gage Corbin, Dr. Jairo Lo Primary Care Alli Corbin, Dr. Jairo Lo Primary Care Alli Aldridge, . Karlo Arabella Chandler Referring Alli Aldridge, Brandon Chandler Attending Alli Corbin, Dr. Jairo Lo Primary Care Alli Lucio, Dr. Jorge Crystal Referring Unava ilable Naveed, Dr. Jorge Crystal Attending Dinava ilarianna Lucio, Dr. Jorge Crystal Attending Dinava ilDO Jairo Whyte Primary Care Provider [phone] DO Jairo Wild Attending Provider Jairo Corbin DO Primary Care Provider Jairo Wild DO Unavailable [phone] Unavailable Primary Care Provider Unavailabl Jairo Sr DO Primary Care Provider Brad Livingston Attending Unavailable Jairo Corbin Primary Care Unavailable Bing Chong Consulting Unavailable Jair Harp Admitting Unavailable Papo Lucio Consulting Unavailable Kings Banegas Consulting Unavailable Jorge Burger Consulting Unavail able John Pena Consulting Unavailable Dano Anderson Consulting Unavailab Karlo Parrish Consulting Unavailable Mary Neal Consulting Unavailable Malick, Danny Citlalyjeeb Consulting Unavailab ramona Thompson, Tarek Consulting Unavailable Sravani Spears Consulting Unavailable Sparkle Joseph Consulting Unavailable Jairo Wild Attending Unavailable Jairo Corbin Primary Care Unavailable Jairo Wild Admitting Unavailable Papo Lucio Attending Unavailable Jairo Corbin Primary Care Unavailable Papo Lucio Admitting Unavailable Jairo Wild Attending Unavailable Jairo Corbin Primary Care Unavailable Jairo Wild Admitting Unavailable Jairo Corbin Primary Care Unavailable Bing Chong Consulting Unavailable Bon Harman Admitting Unavailabl Bon Tolbert Attending Unavailabl e Papo Lucio Consulting Unavailable Kings Banegas Consulting Unavailable Jorge Burger Consulting Unavail able John Pena Consulting Unavailable Dano Anderson Consulting Unavailab Karlo Parrish Consulting Unavailable Mary Neal Consulting Unavailable Danny Teresa Consulting Unavailab Kerline Oliver Consulting Unavailable Sravani Spears Consulting Unavailable Sparkle Joseph Consulting Unavailable Ball DO, Jairo E Primary Care Provider ANDRÉS MARY Referring Unavailable BALL, JAIRO E Primary Care Unavailable ALDRIDGE, KARLO K Referring Unavailable BALL, JAIRO E Primary Care Unavailable ALDRIDGE, KARLO K Referring Unavailable BALL, JAIRO E Primary Care Unavailable ALDRIDGE, KARLO K Referring Unavailable BALL, JAIRO E Primary Care Unavailable ALDRIDGE, KARLO K Referring Unavailable BALL, JAIRO E Primary Care Unavailable RAMSEY, KARLO K Attending Unavailable BALL, JAIRO E Primary Care Unavailable ANDRÉS, MARY Attending Unavailable BALL, JAIRO E Primary Care Unavailable RAMSEY, KARLO K Referring Unavailable NEAL, MARY Attending Unavailable NEAL, MARY Referring Unavailable BALL, JAIRO E Primary Care Unavailable ANDRÉS, MARY Attending Unavailable NEAL, MARY Referring Unavailable BALL, JAIRO E Primary Care Unavailable RAMSEY, KARLO K Attending Unavailable NEAL, MARY Referring Unavailable BALL, JAIRO E Primary Care Unavailable Allergies Allergy Classification Reported Allergen(s) Allergy Type Date of Onset Reaction(s) Facility (20 sources) Corticosteroids Propensity to adverse reactions sensitivty [employer] | 3pay [facility] [employer] Other (6 sources) Fscmndy-JXW-TiX Reductase Inhibitor; Translations: [Lubwuoh-XCA-WmX Reductase Inhibitor] Propensity to adverse reactions 02-26-20 Hives, muscle aches [facility] (5 sources) Hmg-Coa Reductase Inhibitors (Statins); Translations: [Statins] Allergy to drug (finding) Other -[facility] [facility] DO Work Phone: (8 sources) HMG-CoA reductase inhibitor; Translations: [KQURIMV-NIX-UPU REDUCTASE INHIBITORS] Drug Allergy 04-06-20 Unknown, Other (See Comments) [facility] (7 sources) Non-steroidal anti-inflammatory agent; Translations: [NSAIDS (NON-STEROIDAL ANTI-INFLAMMATORY DRUG)] Drug Intolerance 01-03-20 08 Unknown, Other (See Comments) [facility] (4 sources) Corticosteroids; Translations: [Corticosteroids (Glucocorticoids)] Allergy to substance 11-01-19 24 sensitivty [facility] Medications Current Medications Medication Drug Class(es) Dates [...] 2023 5:11pm take 1 capsule by mo ut once daily ascorbic acid, vitamin C, 500 mg capsule Take 1 capsule by mouth once daily. Active take 2 tablets by mo uth every twenty-four hours Vitamin C 500 MG [...] Tablet,Chewable Active 81 MG PO Daily 90 February 25, 2023 12:00am cetirizine hydrochloride 10 mg oral tablet (13 sources) Histamine-1 Receptor Antagonist Start: 09-01-2023 take 10 mg by mouth at bedtime Cetirizine Active 10 MG PO Bedtime September 01, 2023 1:00am take 1 capsule by mo uth once daily at bedtime cetirizine (ZYRTEC) 10 mg capsule Take 1 capsule (10 mg) by mouth once daily at bedtime. Active digoxin 0.125 mg oral tablet (8 sources) Cardiac Glycoside Start: 10-24-2023 take 1 tablet by mouth once daily Digoxin (Digox) 125 mcg (0.125 mg) tablet Active 125 MCG PO Daily October 24, 2023 1:00am doxycycline hyclate 100 mg oral capsule (7 sources) Tetracycline-clas s Drug Start: 12-10-2022 take 1 capsule by mouth twice daily Doxycycline Hyclate 100 MG 1 capsule Orally twice daily for 7 days Dec, Active Fish Oils (20 sources) furosemide 20 mg oral tablet (20 sources) Loop Diuretic Start: 11-10-2023 End: 11-09-2024 take 1 tablet by mouth twice daily Furosemide (Lasix) 20 mg tablet Active 20 MG PO Twice daily January 31, 2024 3:51pm Start: 10-24-2023 End: 01-31-2024 take 2 tablets [...] adjustment) Start: 02-27-2023 take 1 tablet by alfonso th every twenty-four hours Furosemide 40 MG 1 tablet Orally Once a day January, Active Start: 02-25-2023 End: 01-19-2024 take 1 tablet by mouth once daily Furosemide (Lasix) 20 mg tablet Discontinued 20 MG PO Daily February 25, 2023 12:00am October 21, 2023 5:18pm gabapentin 100 mg oral capsule (7 sources) Anti-epileptic Agent Gabapentin 100 MG Orally Active inositol 100 mg / niacin 400 mg oral capsule (9 sources) Nicotinic Acid Start: 09-01-2023 niacin, inositol niacinate, 400 mg niacin (500 mg) capsule 1 capsule if needed. 09/01/2023 Active Start: 09-01-2023 take 1 capsule by [facility] once daily at bedtime Niacin (Inositol Niacinate) (Niacin Flush Free) 400 mg niacin (500 mg) Capsule Active 1 CAP PO Daily at bedtime September 01, 2023 1:00am Magnesium Oxide (18 sources) Start: 01-31-2024 take 300 mg by [...] mg magnesium tablet Take by mouth. Active niacin 500 mg oral tablet (6 sources) Nicotinic Acid take 1 tablet by mouth every twenty-four hours Niacin 500 MG 1 tablet with food Orally Once a day Active End: 09-29-2023 take 2 tablets by mouth once daily niacin 500 mg tablet Take 2 tablets (1,000 mg) by mouth once daily. 0 09/29/2023 Discontinued (Therapy completed) pantoprazole 40 mg delayed release oral tablet (1 source) Proton Pump Inhibitor Start: 01-31-2024 take 40 mg by mouth once daily Pantoprazole Active 40 MG PO Daily January 31, 2024 12:00am sacubitril 24 mg / valsartan 26 mg oral tablet (20 sources) Angiotensin 2 Receptor Fannie Start: 12-23-2023 End: 03-22-2024 take 1 tablet by mouth twice daily Sacubitril-Valsart an (Entresto) 24-26 mg tablet Active 1 TAB PO Twice daily January 31, 2024 12:00am Start: 09-01-2023 End: 01-31-2024 take 1 tablet by mouth once daily Sacubitril-Valsartan (Entresto) 24-26 mg tablet Discontinued 1 TAB PO Daily September 01, 2023 10:20am January 31, 2024 3:52pm Start: 03-02-2023 End: 09-29-2023 take 1 tablet by mouth twice daily Sacubitril-Valsartan (Entresto) 24-26 mg tablet Discontinued 1 TAB PO Twice daily March 02, 2023 12:00am September 01, 2023 10:20am Selenium (2 sources) Start: 01-31-2024 take 50 ug by mouth [...] 12:00am warfarin sodium 1 mg oral tablet (12 sources) Vitamin K Antagonist Start: 10-19-2023 take 1 mg by mouth once daily Warfarin Active 1 MG PO Daily October 21, 2023 1:00am Start: 09-23-2023 End: 10-23-2023 take 1 tablet by mouth once daily in the evening warfarin (Coumadin) 5 mg tablet Indications: Paroxysmal atrial fibrillation (Multi) Take 1 tablet (5 mg) by mouth once daily in the evening. Take as directed. 30 tablet 09/23/2023 Active XyliMelts 500 MG (1 source) XyliMelts 500 MG as directed Mouth/Throat Active Xylitol (Xylimelts) 500 mg Muco-Adhesive Buccal Tablet (6 sources) Start: 09-01-2023 Xylitol (Xylim elts) 500 mg Muco-Adhesive Buccal Tablet Active 500 MG MUCOUS MEM Bedtime September 01, 2023 1:00am Start: 09-01-2023 Xylitol (Xylim elts) 500 mg Muco-Adhesive Buccal Tablet Active 500 MG MUCOUS MEM Bedtime September 01, 2023 12:00am Zinc (14 sources) Start: 02-24-2023 take 25 mg by [...] mg / clavulanate 125 mg oral tablet (14 sources) Penicillin-class Antibacterial Start: 10-21-2023 End: 01-31-2024 [...] hrs Active atorvastatin 40 mg oral tablet (15 sources) HMG-CoA Reductase Inhibitor Start: 02-25-2023 End: 03-02-2023 take 40 mg by mouth once daily in the evening Atorvastatin Discontinued 40 MG PO Every evening February 25, 2023 12:00am March 02, 2023 12:31pm benazepril hydrochloride 10 mg oral tablet (10 sources) Angiotensin Converting Enzyme Inhibitor Start: 02-23-2023 End: 02-25-2023 take 10 mg by mouth once daily Benazepril Discontinued 10 MG PO Daily February 23, 2023 12:00am February 25, 2023 12:47pm take 1 tablet by mouth once bay y Benazepril HCl 10 mg TAKE 1 TABLET BY MOUTH DAILY Active carvedilol 12.5 mg oral tablet (20 sources) alpha-Adrenergic Fannie, beta-Adrenergic Fannie Start: 02-27-2023 End: 01-31-2024 take 12.5 mg by mouth twice daily at mealtime Carvedilol Discontinued 12.5 MG PO Twice daily with meals 60 October 24, 2023 1:00am January 31, 2024 3:54pm Start: 02-25-2023 End: 11-10-2023 take 6.25 mg by mouth twice daily at mealtime Carvedilol Discontinued 6.25 MG PO Twice daily with meals 60 February 25, 2023 12:00am October 24, 2023 2:28pm cholecalciferol 0.05 mg oral capsule (10 sources) Vitamin D Start: 02-24-2023 End: 01-31-2024 [...] Active losartan potassium 25 mg oral tablet (15 sources) Angiotensin 2 Receptor Fannie Start: 02-25-2023 [...] Carb,Citrate,Oxide (Magnesium Complex) 300 mg magnesium Tablet (7 sources) Start: 02-24-2023 End: 02-25-2023 take 1 [...] 2023 12:47pm melatonin 5 mg oral tablet (16 sources) Start: 02-24-2023 End: 01-31-2024 take 5 mg by mouth at bedtime Melatonin Discontinued 5 MG PO Bedtime February 24, 2023 12:00am January 31, 2024 3:51pm take 1 tablet by mouth at bedtim e Melatonin 300 MCG Oral Tablet TAKE 1 TABLET Bedtime Quantity: 0 Refills: 0 Ordered: 03-Mar-2023 DO Active meloxicam 15 mg oral tablet (20 sources) Nonsteroidal Anti-inflammatory Drug Start: 11-09-2022 End: 01-31-2024 take 15 mg by mouth once daily Meloxicam Discontinued 15 MG PO Daily September 01, 2023 1:00am January 31, 2024 8:44am niacinamide 500 mg oral tablet (6 sources) End: 09-05-2023 take 1 tablet by mouth once daily niacinamide 500 mg tablet Take 1 tablet (500 mg) by mouth once daily. 0 09/05/2023 Discontinued (Therapy completed) 24 hr nitroglycerin 0.2 mg/hr transdermal system (7 sources) Nitrate Vasodilator Start: 02-25-2023 End: 03-02-2023 Nitroglycerin Discontinued 1 EACH TRANSDERML DAILY@0600 30 February 25, 2023 12:00am March 02, 2023 12:33pm [place] 1-Iyb-Ejq-Fish Oil (Fish Oil) 60-90-500 mg capsule (2 sources) Start: 01-31-2024 End: 01-31-2024 take 1 capsule by mouth once daily [place] 2-Vzb-Sgi-Fish Oil (Fish Oil) 60-90-500 mg capsule Discontinued [...] (20 sources) Opioid Agonist Start: 11-27-2022 End: 04-06-2024 take 50 mg by mouth every six [...] Coronary arteriosclerosis; Translations: [Atherosclerotic heart disease of [place] coronary artery without angina pectoris] Onset: 06-22-2023 Chronic Disorders of lipid metabolism (20 sources) Hypercholesterolemia ; Translations: [Pure hypercholesterolemia , unspecified] Chronic Disorders of teeth and jaw (9 sources) Dental caries; Translations: [Dental caries, unspecified] Onset: 10-21-2023 10-21-2023 Episodic Essential hypertension (20 sources) Essential hypertension; Translations: [Essential (primary) hypertension] Onset: 03-01-2023 Chronic Gastrointestinal hemorrhage (2 sources) Melena; Translations: [Melena] 01-31-2024 Episodic Genitourinary symptoms [...] Onset: 11-17-2017 Chronic Other aftercare (2 sources) senior care (current) use of opiate analgesic; Translations: [superintendent terminal (current) use of opiate analgesic] Episodic Other aftercare (4 sources) High risk drug monitoring status; Translations: [senior care (current) use of opiate analgesic] Episodic Other gastrointestinal disorders (15 sources) Dysphagia; Translations: [Dysphagia] Episodic Other lower respiratory disease (7 sources) Orthopnea; Translations: [Orthopnea] 02-24-2023 Episodic Other lower respiratory disease (5 sources) Paroxysmal nocturnal dyspnea; Translations: [Dyspnea, unspecified] 05-24-2023 Episodic Other lower respiratory disease (2 sources) [...] conditions (not mental disorders or infectious disease) (20 sources) Liver enzymes abnormal; Translations: [Elevated liver [...] Onset: 06-22-2023 09-05-2023 Chronic Residual codes; unclassified (12 sources) Obstructive sleep apnea (adult) (pediatric); Translations: [...] 09-30-2015 Episodic Other aftercare (5 sources) Other nursing home (current) drug therapy; Translations: [OTH PHYSICIAN CODER CURRENT DRUG THERAPY] Onset: 03-02-2023 Episodic Other aftercare (8 sources) Long-term current use of 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; Translations: [superintendent terminal (current) use of 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s] Onset: 09-07-2023 3 Episodic Other aftercare (5 sources) Treatment changed; Translations: [Other nursing home (current) drug therapy] Onset: 09-29-2023 09-29-2023 Episodic [...] Onset: 11-10-2023 Episodic Other aftercare (2 sources) superintendent terminal (current) use of 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s; Translations: [superintendent terminal (current) use of 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s] Onset: 09-07-2023 Episodic [...] Test Name Value Interpretation Reference Range Facility Estimated glomerular filtrat ion rate (GFR) non- Americanon 03-23-2024 GFR/1.73 sq M.predicted among non-blacks MDRD (S/P/Bld) [Vol rate/Area] mL/min/{1.73_m2} >=60 [facility] Laboratory - Chemistry and C hemistry - challengeon 03-23-2024 Calcium [Mass/Vol] 8.9 mg/dL 8.5-10.1 [facility] Chloride [Moles/Vol] 102 mmol/L 98-107 [facility] CO2 [Moles/Vol] 27.6 mmol/L 21.0-32.0 [facility] Creatinine [Mass/Vol] 0.96 mg/dL 0.70-1.30 [facility] GFR/1.73 sq M.predicted MDRD (S/P/Bld) [Vol rate/Area] mL/min/{1.73_m2} >=60 [facility] Glucose [Mass/Vol] 143 mg/dL High 74-106 [facility] Potassium [Moles/Vol] 4.4 mmol/L 3.5-5.1 [facility] Sodium [Moles/Vol] 136 mmol/L 136-145 [facility] Urea nitrogen [Mass/Vol] 22.0 mg/dL High 7.0-18.0 [facility] Urea nitrogen/Creatinine [Mass ratio] 22.9 mg/mg [facility] Serum or plasma anion gap de terminationon 03-23-2024 Anion gap [Moles/Vol] 10.8 mmol/L [facility] TRANSTHORACIC ECHO (TTE) COM PLETEon 02-11-2024 TRANSTHORACIC ECHO (TTE) COMPLETE [address], [address], [place] [address] TRANSTHORACIC ECHOCARDIOGRAM REPORT Patient Name: VICK MERCADO Reading Physician: [id number] John Pena MD Study Date: 02/11/2024 Ordering Provider: [id number] MARY NEAL MRN/PID: [id number] Fellow: Nurse: Date of /Age: 6 1955 / 68 years Soap Mixer: Francie Martin RDCS, RDMS, RVT Gender: M Additional Staff: Height: 177.80 cm Admit Date: Weight: 99.79 kg Admission Status: Outpatient BSA / BMI: 2.17 m2 / 31.57 Department Location: [address] Blood Pressure: 132 /64 mmHg Study Type: TRANSTHORACIC ECHO (TTE) COMPLETE Diagnosis/ICD: Paroxysmal atrial fibrillation-I48.0; 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 (congestive) 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 (CHF)-I50.22; Other cardiomyopathies-I42.8 Indication: Afib, NICM, CHF, HTN, JANETTE CPT Codes: Echo Complete w Full Doppler-[id number] Study Detail: The following Echo studies were [...] 0.7 m/s (0.6-0.9m/s) PV Max P.9 mmHg [id number] John Pena MD Electronically signed on 02/13/2024 at 1:00:52 PM Final Normal [facility] ECG 12 Leadon 01-31-2024 [facility] Work Phone: Basic Metabolic Panelon 10-04 Anion gap [Moles/Vol] 10.2 mmol/L Normal 6.0-15.0 [facility] Comment on above: Performed By: #### C EVAN NEWTON, PT ####[facility] [place] [id number] [facility] Calcium [Mass/Vol] 9.4 mg/dL Normal 8.6-10.3 [facility] Comment on above: Performed By: #### C EVAN NEWTON, PT ####[facility] [place] [address] [facility] Chloride [Moles/Vol] 102 mmol/L Normal 98-107 [facility] Comment on above: Performed By: #### C EVAN NEWTON, PT ####[facility] [place] [address] [facility] CO2 [Moles/Vol] 28.8 mmol/L Normal 21.0-31.0 [facility] Comment on above: Performed By: #### C EVAN NEWTON, PT ####[address] Creatinine [Mass/Vol] 0.80 mg/dL Normal 0.70-1.30 [facility] Comment on above: Performed By: #### C EVAN NEWTON, PT ####[address] Creatinine Clr Calc Pharmacy 100.39 Normal [facility] Comment on above: Result Comment: PERF ORMED BY: [facility] [address] [place] [address] PATHOLOGIST INFORMATION SYSTEMS TECHNICIAN ION THOMPSON M.D. Performed By: #### C EVAN NEWTON, PT ####[address] GFR/1.73 sq M.predicted MDRD (S/P/Bld) [Vol rate/Area] mL/min/{1.73_m2} Normal [facility] Comment on above: Performed By: #### C EVAN NEWTON, PT ####[address] Glucose [Mass/Vol] 104 mg/dL High 70-100 [facility] Comment on above: Result Comment: [facility] Glucose Reference Range is dependent on time and content of last meal. Glucose of more than 200 mg/dL in a nonstressed, ambulatory subject supports the diagnosis of Diabetes Mellitus. ADA recommended reference range Performed By: #### C EVAN NEWTON, PT ####[address] Potassium [Moles/Vol] 4.0 mmol/L Normal 3.5-5.1 [facility] Comment on above: Performed By: #### C EVAN NEWTON, PT ####[address] Sodium [Moles/Vol] 137 mmol/L Normal 136-145 [facility] Comment on above: Performed By: #### C EVAN NEWTON, PT ####[address] Urea nitrogen [Mass/Vol] 18 mg/dL Normal 7-25 [facility] Comment on above: Performed By: #### C EVAN NEWTON, PT ####[address] Complete Blood Count Auto Di ffon 10-24-2023 Basophils (Bld) [#/Vol] 0.1 10*3/uL Normal 0.0-0.2 [facility] Comment on above: Result Comment: PERF ORMED BY: [facility] [address] [place] [address] PATHOLOGIST INFORMATION SYSTEMS TECHNICIAN ION THOMPSON M.D. Performed By: #### C EVAN NEWTON, PT ####[address] Basophils/100 WBC (Bld) 0.6 % Normal . [facility] Comment on above: Performed By: #### C EVAN NEWTON, PT ####[address] Eosinophils (Bld) [#/Vol] 0.4 10*3/uL Normal 0.0-0.45 [facility] Comment on above: Performed By: #### C EVAN NEWTON, PT ####[address] Eosinophils/100 WBC (Bld) 3.9 % Normal . [facility] Comment on above: Performed By: #### C EVAN NEWTON, PT ####[address] Erythrocyte distribution width (RBC) [Ratio] 12.3 % Normal 12.0-14.8 [facility] Comment on above: Performed By: #### C EVAN NEWTON, PT ####[address] Hematocrit (Bld) [Volume fraction] 40.6 % Normal 38.8-50.0 [facility] Comment on above: Performed By: #### C EVAN NEWTON, PT ####[address] Hemoglobin (Bld) [Mass/Vol] 14.0 g/dL Normal 13.0-17.0 [facility] Comment on above: Performed By: #### C EVAN NEWTON, PT ####[address] Lymphocytes (Bld) [#/Vol] 2.2 10*3/uL Normal 1.00-4.8 [facility] Comment on above: Performed By: #### C EVAN NEWTON, PT ####[address] Lymphocytes/100 WBC (Bld) 22.2 % Normal . [facility] Comment on above: Performed By: #### C EVAN NEWTON, PT ####[address] MCH (RBC) [Entitic mass] 31.2 pg Normal 27.5-35.2 [facility] Comment on above: Performed By: #### C EVAN NEWTON, PT ####[address] MCV (RBC) [Entitic vol] 90.3 fL Normal 83.5-101 [facility] Comment on above: Performed By: #### C EVAN NEWTON, PT ####[address] Mean Corpuscular HGB Conc 34.5 g/dL Normal 32.5-35.6 [facility] Comment on above: Performed By: #### C EVAN NEWTON, PT ####[address] Monocytes (Bld) [#/Vol] 1.1 10*3/uL High 0.0-0.8 [facility] Comment on above: Performed By: #### C EVAN NEWTON, PT ####[address] Monocytes/100 WBC (Bld) 11.6 % Normal . [facility] Comment on above: Performed By: #### C EVAN NEWTON, PT ####[address] Neutrophils (Bld) [#/Vol] 6.0 10*3/uL Normal 1.8-7.7 [facility] Comment on above: Performed By: #### C EVAN NEWTON, PT ####[address] Neutrophils/100 WBC (Bld) 61.7 % Normal . [facility] Comment on above: Performed By: #### C EVAN NEWTON, PT ####[address] NRBC% 0.1 /100{WBC} Normal 0-0.5 [facility] Comment on above: Performed By: #### C EVAN NEWTON, PT ####[address] Platelet mean volume (Bld) [Entitic vol] 8.1 fL Normal 6.6-10.1 [facility] Comment on above: Performed By: #### C EVAN NEWTON, PT ####[address] Platelets (Bld) [#/Vol] 213 10*3/uL Normal 150-450 [facility] Comment on above: Performed By: #### C EVAN NEWTON, PT ####[address] RBC (Bld) [#/Vol] 4.49 10*6/uL Normal 3.90-5.60 [facility] Comment on above: Performed By: #### C EVAN NEWTON, PT ####[address] WBC (Bld) [#/Vol] 9.8 10*3/uL Normal 4.1-10.5 The [facility] Comment on above: Performed By: #### EVAN WALLS, PT ####[address] ECG 12 lead ECGon 10-24-[address] [facility] Main [place] [address] [place] [address] Electrocardiograph Report Signed Patient: Vick Mercado MR#: [id number] : 1955 Acct:[id number] Age/Sex: 68 / M ADM Date: 10/21/23 Loc: 3T Room: [address] [place] [address] Type: DIS IN Attending Dr: Bon Harman DO Ordering Provider: John Pena MD Date of Service: 10/24/23 ECG/ECG 12 lead ECG: Rym check before DC Copies to: Test Reason [...] Pena MD 0 10/25/23 1509 Normal [facility] ECG [address] [facility] Main [address] [address] Electrocardiograph Report Signed Patient: Vick Mercado MR#: [id number] : 1955 Acct:[id number] Age/Sex: 68 / M ADM Date: 10/21/23 Loc: Room: [address] [place] [address] Type: ADM IN Attending Dr: Bon Harman [...] John Pena MD 0 10/24/23 1219 Normal [facility] ECG 12 [place] [address] Electrocardiograph Report Signed Patient: Vick Mercado MR#: [id number] : 1955 Acct:[id number] Age/Sex: 68 / M ADM Date: 10/21/23 Loc: Room: [address] [place] [address] Type: ADM IN Attending Dr: Bon Harman [...] Pena MD 0 10/24/23 1219 Normal [facility] ECG post procedureon 024 ECG post procedure [facility] [place] [id number] Electrocardiograph Report Signed Patient: Vick Mercado MR#: [id number] : 1955 Acct:[id number] Age/Sex: 68 / M ADM Date: 10/21/23 Loc: Room: [address] [place] [address] Type: DIS IN Attending Dr: Bon Harman [...] BECKY Electronically Signed By:JOHN PENA MD REVISED DOCUMENT/10/25/2023/ (corrected order number) Transcribed By: MUS Signed By John Pena MD 0 10/25/23 1313 Normal [facility] Prothrombin Time INRon 10-24 INR Coag (PPP) [Relative time] 2.2 {INR} Normal The [facility] Comment on above: Result Comment: [...] heart valves: 3 - 4.5 PERFORMED BY: [place] [id number] PATHOLOGIST INFORMATION SYSTEMS TECHNICIAN JIANLAN SUN M.D. Performed By: #### C BC, BMP, PT ####[address] [address] [facility] PT Coag (PPP) [Time] 25.3 s High 9.0-12.9 [facility] Comment on above: Result Comment: A he matocrit value greater than 55% may lead to inaccurate results in coagulation testing. Patients having hematocrit values >55% require a special collection tube for coagulation studies. Please contact the laboratory at [phone] for redraw instructions. Performed By: #### C BC, BMP, PT ####[place] [id number] [facility] Basic Metabolic Panelon 10-04 Anion gap [Moles/Vol] 10.1 mmol/L Normal 6.0-15.0 e [facility] Comment on above: Performed By: #### B MP, PT, CBC ####[address] Calcium [Mass/Vol] 9.2 mg/dL Normal 8.6-10.3 The [facility] Comment on above: Performed By: #### B MP, PT, CBC ####[place] [id number] [facility] Chloride [Moles/Vol] 103 mmol/L Normal 98-107 The [facility] Comment on above: Performed By: #### B MP, PT, CBC ####[place] [id number] [facility] CO2 [Moles/Vol] 26.2 mmol/L Normal 21.0-31.0 The [facility] Comment on above: Performed By: #### B MP, PT, CBC ####[place] [id number] [facility] Creatinine [Mass/Vol] 0.76 mg/dL Normal 0.70-1.30 The [facility] Comment on above: Performed By: #### B MP, PT, CBC ####[place] [id number] [facility] Creatinine Clr Calc Pharmacy 101.72 Normal The [facility] Comment on above: Result Comment: PERF ORMED BY: [facility] [address] [place] [id number] PATHOLOGIST INFORMATION SYSTEMS TECHNICIAN ION THOMPSON M.D. Performed By: #### B MP, PT, CBC ####[place] [id number] [place] GFR/1.73 sq M.predicted MDRD (S/P/Bld) [Vol rate/Area] mL/min/{1.73_m2} Normal The [facility] Comment on above: Performed By: #### B MP, PT, CBC ####[address] Glucose [Mass/Vol] 105 mg/dL High 70-100 The [facility] Comment on above: Result Comment: [place] Glucose Reference Range is dependent on time and content of last meal. Glucose of more than 200 mg/dL in a nonstressed, ambulatory subject supports the diagnosis of Diabetes Mellitus. ADA recommended reference range Performed By: #### B MP, PT, CBC ####[place] [id number] [facility] Potassium [Moles/Vol] 4.3 mmol/L Normal 3.5-5.1 The [facility] Comment on above: Performed By: #### B MP, PT, CBC ####[address] Sodium [Moles/Vol] 135 mmol/L Low 136-145 The [facility] Comment on above: Performed By: #### B MP, PT, CBC ####[place] [id number] [facility] Urea nitrogen [Mass/Vol] 16 mg/dL Normal 7-25 The [facility] Comment on above: Performed By: #### B MP, PT, CBC ####[place] [id number] [facility] Complete Blood Count Auto Di ffon 10-23-2023 Basophils (Bld) [#/Vol] 0.0 10*3/uL Normal 0.0-0.2 The [facility] Comment on above: Result Comment: PERF ORMED BY: [facility] [place] [place] [address] PATHOLOGIST INFORMATION SYSTEMS TECHNICIAN ION THOMPSON M.D. Performed By: #### B MP, PT, CBC ####[address] Basophils/100 WBC (Bld) 0.4 % Normal . [facility] Comment on above: Performed By: #### B MP, PT, CBC ####[address] Eosinophils (Bld) [#/Vol] 0.4 10*3/uL Normal 0.0-0.45 The [facility] Comment on above: Performed By: #### B MP, PT, CBC ####[address] Eosinophils/100 WBC (Bld) 2.9 % Normal . [facility] Comment on above: Performed By: #### B MP, PT, CBC ####[address] Erythrocyte distribution width (RBC) [Ratio] 12.6 % Normal 12.0-14.8 The [facility] Comment on above: Performed By: #### B MP, PT, CBC ####[address] Hematocrit (Bld) [Volume fraction] 39.5 % Normal 38.8-50.0 The [facility] Comment on above: Performed By: #### B MP, PT, CBC ####[address] Hemoglobin (Bld) [Mass/Vol] 13.5 g/dL Normal 13.0-17.0 The [facility] Comment on above: Performed By: #### B MP, PT, CBC ####[address] Lymphocytes (Bld) [#/Vol] 2.4 10*3/uL Normal 1.00-4.8 The [facility] Comment on above: Performed By: #### B MP, PT, CBC ####[address] Lymphocytes/100 WBC (Bld) 19.5 % Normal . [facility] Comment on above: Performed By: #### B MP, PT, CBC ####[address] MCH (RBC) [Entitic mass] 31.0 pg Normal 27.5-35.2 The [facility] Comment on above: Performed By: #### B MP, PT, CBC ####[address] MCV (RBC) [Entitic vol] 91.0 fL Normal 83.5-101 The [facility] Comment on above: Performed By: #### B MP, PT, CBC ####[address] Mean Corpuscular HGB Conc 34.1 g/dL Normal 32.5-35.6 The [facility] Comment on above: Performed By: #### B MP, PT, CBC ####[address] Monocytes (Bld) [#/Vol] 1.3 10*3/uL High 0.0-0.8 The [facility] Comment on above: Performed By: #### B MP, PT, CBC ####[address] Monocytes/100 WBC (Bld) 10.6 % Normal . The [facility] Comment on above: Performed By: #### B MP, PT, CBC ####[address] Neutrophils (Bld) [#/Vol] 8.1 10*3/uL High 1.8-7.7 The [facility] Comment on above: Performed By: #### B MP, PT, CBC ####[address] Neutrophils/100 WBC (Bld) 66.6 % Normal . The [facility] Comment on above: Performed By: #### B MP, PT, CBC ####[place] [id number] [facility] NRBC% 0.1 /100{WBC} Normal 0-0.5 The [facility] Comment on above: Performed By: #### B MP, PT, CBC ####[place] [id number] [facility] Platelet mean volume (Bld) [Entitic vol] 8.2 fL Normal 6.6-10.1 The [facility] Comment on above: Performed By: #### B MP, PT, CBC ####[address] [address] [facility] Platelets (Bld) [#/Vol] 217 10*3/uL Normal 150-450 The [facility] Comment on above: Performed By: #### B MP, PT, CBC ####[place] [id number] [facility] RBC (Bld) [#/Vol] 4.34 10*6/uL Normal 3.90-5.60 The [facility] Comment on above: Performed By: #### B MP, PT, CBC ####[place] [id number] [facility] WBC (Bld) [#/Vol] 12.1 10*3/uL High 4.1-10.5 The [facility] Comment on above: Performed By: #### B MP, PT, CBC ####[place] [id number] [facility] ECG 12 lead ECGon 10-23-2023 [address] [facility] Main [place] [address] [place] [address] Electrocardiograph Report Signed Patient: Vick Mercado MR#: [id number] : 1955 Acct:[id number] Age/Sex: 68 / M ADM Date: 10/21/23 Loc: Room: [address] [place] [address] Type: ADM IN Attending Dr: Bon Harman [...] leads Confirmed by BECKY MATA, JOHN ([id number]), assistant film editor Matthew Lei ([id number]) on 10/24/2023 8:19:52 AM Referred By: Electronically Signed By:JOHN PENA MD Transcribed By: MUS Signed By John Pena MD 0 10/24/23 0819 Normal [facility] Electrolyteson 10-23-2023 Anion gap [Moles/Vol] 11.8 mmol/L Normal 6.0-15.0 Th e [facility] Comment on above: Result Comment: PERF ORMED BY: [facility] [address] [place] [address] PATHOLOGIST INFORMATION SYSTEMS TECHNICIAN ION THOMPSON M.D. Performed By: #### L YTES ####[place] [id number] [facility] Chloride [Moles/Vol] 100 mmol/L Normal 98-107 [facility] Comment on above: Performed By: #### L YTES ####[place] [id number] [facility] CO2 [Moles/Vol] 28.3 mmol/L Normal 21.0-31.0 The [facility] Comment on above: Performed By: #### L YTES ####[place] [id number] [facility] Potassium [Moles/Vol] 4.1 mmol/L Normal 3.5-5.1 The [facility] Comment on above: Performed By: #### L YTES ####[address] [place] [address] [facility] Sodium [Moles/Vol] 136 mmol/L Normal 136-145 The [facility] Comment on above: Performed By: #### L ORA ####[place] [id number] [facility] Prothrombin Time INRon 10-23 INR Coag (PPP) [Relative time] 2.5 {INR} Normal The [facility] Comment on above: Result Comment: [...] heart valves: 3 - 4.5 PERFORMED BY: [place] [address] PATHOLOGIST INFORMATION SYSTEMS TECHNICIAN ION THOMPSON M.D. Performed By: #### B MP, PT, CBC ####[place] [id number] [facility] PT Coag (PPP) [Time] 28.1 s High 9.0-12.9 The [facility] Comment on above: Result Comment: A he matocrit value greater than 55% may lead to inaccurate results in coagulation testing. Patients having hematocrit values >55% require a special collection tube for coagulation studies. Please contact the laboratory at [phone] for redraw instructions. Performed By: #### B MP, PT, CBC ####[place] [id number] [facility] A1C with Estimated Average G luon 10-22-2023 Glucose [Mass/Vol] 137 mg/dL Normal The [facility] Comment on above: Result Comment: PERF ORMED BY: [address] [place] [id number] PATHOLOGIST INFORMATION SYSTEMS TECHNICIAN ION THOMPSON M.D. Performed By: #### B MP, [id number], A1C WTH eA, PT, MG, CBC ####[address] [address] [place]#### VITB1 ####[facility] , HbA1c (Bld) [Mass fraction] 6.4 % High 4.3-5.6 The [facility] Comment on above: Result Comment: Incr eased risk for diabetes: 5.7 - 6.4 diabetes: >6.4 glycemic control for adults with diabetes: <7.0 Performed By: #### B MP, [id number], A1C WTH eA, PT, MG, CBC ####[address]#### VITB1 ####[facility] , Basic Metabolic Panelon 10-04 Anion gap [Moles/Vol] 10.6 mmol/L Normal 6.0-15.0 e [facility] Comment on above: Performed By: #### B MP, [id number], A1C WTH eA, PT, MG, CBC ####[address]#### VITB1 ####[facility] , Calcium [Mass/Vol] 9.1 mg/dL Normal 8.6-10.3 The [facility] Comment on above: Performed By: #### B MP, [id number], A1C WTH eA, PT, MG, CBC ####[address]#### VITB1 ####[facility] , Chloride [Moles/Vol] 104 mmol/L Normal 98-107 The [facility] Comment on above: Performed By: #### B MP, [id number], A1C WTH eA, PT, MG, CBC ####[address]#### VITB1 ####[facility] , CO2 [Moles/Vol] 24.6 mmol/L Normal 21.0-31.0 The [facility] Comment on above: Performed By: #### B MP, [id number], A1C WTH eA, PT, MG, CBC ####[address]#### VITB1 ####[facility] , Creatinine [Mass/Vol] 0.84 mg/dL Normal 0.70-1.30 The [facility] Comment on above: Performed By: #### B MP, [id number], A1C WTH eA, PT, MG, CBC ####[address]#### VITB1 ####[facility] , Creatinine Clr Calc Pharmacy 97.01 Normal The [facility] Comment on above: Performed By: #### B MP, [id number], A1C WTH eA, PT, MG, CBC ####[address]#### VITB1 ####[facility] , GFR/1.73 sq M.predicted MDRD (S/P/Bld) [Vol rate/Area] mL/min/{1.73_m2} Normal The [facility] Comment on above: Performed By: #### B MP, [id number], A1C WTH eA, PT, MG, CBC ####[address]#### VITB1 ####[facility] , Glucose [Mass/Vol] 129 mg/dL High 70-100 The [facility] Comment on above: Result Comment: [place] Glucose Reference Range is dependent on time and content of last meal. Glucose of more than 200 mg/dL in a nonstressed, ambulatory subject supports the diagnosis of Diabetes Mellitus. ADA recommended reference range Performed By: #### B MP, [id number], A1C WTH eA, PT, MG, CBC ####[place] [address] [place]#### VITB1 ####[facility] , Potassium [Moles/Vol] 4.2 mmol/L Normal 3.5-5.1 [facility] Comment on above: Performed By: #### B MP, [id number], A1C WTH eA, PT, MG, CBC ####[address]#### VITB1 ####[facility] , Sodium [Moles/Vol] 135 mmol/L Low 136-145 [facility] Comment on above: Performed By: #### B MP, [id number], A1C WTH eA, PT, MG, CBC ####[address]#### VITB1 ####[facility] , Urea nitrogen [Mass/Vol] 20 mg/dL Normal 7-25 [facility] Comment on above: Performed By: #### B MP, [id number], A1C WTH eA, PT, MG, CBC ####[address]#### VITB1 ####[facility] , Complete Blood Count Auto Di ffon 10-22-2023 Basophils (Bld) [#/Vol] 0.1 10*3/uL Normal 0.0-0.2 [facility] Comment on above: Result Comment: PERF ORMED BY: [facility] [address] [place] [address] PATHOLOGIST INFORMATION SYSTEMS TECHNICIAN ION THOMPSON M.D. Performed By: #### B MP, [id number], A1C WTH eA, PT, MG, CBC ####[address]#### VITB1 ####[facility] , Basophils/100 WBC (Bld) 0.6 % Normal . The [facility] Comment on above: Performed By: #### B MP, [id number], A1C WTH eA, PT, MG, CBC ####[address]#### VITB1 ####[facility] , Eosinophils (Bld) [#/Vol] 0.3 10*3/uL Normal 0.0-0.45 [facility] Comment on above: Performed By: #### B MP, [id number], A1C WTH eA, PT, MG, CBC ####[address]#### VITB1 ####[facility] , Eosinophils/100 WBC (Bld) 2.1 % Normal . [facility] Comment on above: Performed By: #### B MP, [id number], A1C WTH eA, PT, MG, CBC ####[address]#### VITB1 ####[facility] , Erythrocyte distribution width (RBC) [Ratio] 12.5 % Normal 12.0-14.8 The [facility] Comment on above: Performed By: #### B MP, [id number], A1C WTH eA, PT, MG, CBC ####[address]#### VITB1 ####[facility] , Hematocrit (Bld) [Volume fraction] 38.9 % Normal 38.8-50.0 [facility] Comment on above: Performed By: #### B MP, [id number], A1C WTH eA, PT, MG, CBC ####[address]#### VITB1 ####[facility] , Hemoglobin (Bld) [Mass/Vol] 13.1 g/dL Normal 13.0-17.0 [facility] Comment on above: Performed By: #### B MP, [id number], A1C WTH eA, PT, MG, CBC ####[place] [address] [place]#### VITB1 ####[facility] , Lymphocytes (Bld) [#/Vol] 1.9 10*3/uL Normal 1.00-4.8 [facility] Comment on above: Performed By: #### B MP, [id number], A1C WTH eA, PT, MG, CBC ####[address]#### VITB1 ####[facility] , Lymphocytes/100 WBC (Bld) 15.1 % Normal . [facility] Comment on above: Performed By: #### B MP, [id number], A1C WTH eA, PT, MG, CBC ####[address]#### VITB1 ####[facility] , MCH (RBC) [Entitic mass] 30.6 pg Normal 27.5-35.2 [facility] Comment on above: Performed By: #### B MP, [id number], A1C WTH eA, PT, MG, CBC ####[address]#### VITB1 ####[facility] , MCV (RBC) [Entitic vol] 90.7 fL Normal 83.5-101 [facility] Comment on above: Performed By: #### B MP, [id number], A1C WTH eA, PT, MG, CBC ####[address]#### VITB1 ####[facility] , Mean Corpuscular HGB Conc 33.7 g/dL Normal 32.5-35.6 [facility] Comment on above: Performed By: #### B MP, [id number], A1C WTH eA, PT, MG, CBC ####[place] [address] [place]#### VITB1 ####[facility] , Monocytes (Bld) [#/Vol] 1.2 10*3/uL High 0.0-0.8 [facility] Comment on above: Performed By: #### B MP, [id number], A1C WTH eA, PT, MG, CBC ####[address]#### VITB1 ####[facility] , Monocytes/100 WBC (Bld) 9.8 % Normal . [facility] Comment on above: Performed By: #### B MP, [id number], A1C WTH eA, PT, MG, CBC ####[address]#### VITB1 ####[facility] , Neutrophils (Bld) [#/Vol] 8.9 10*3/uL High 1.8-7.7 [facility] Comment on above: Performed By: #### B MP, [id number], A1C WTH eA, PT, MG, CBC ####[address]#### VITB1 ####[facility] , Neutrophils/100 WBC (Bld) 72.4 % Normal . [facility] Comment on above: Performed By: #### B MP, [id number], A1C WTH eA, PT, MG, CBC ####[address]#### VITB1 ####[facility] , NRBC% 0.0 /100{WBC} Normal 0-0.5 [facility] Comment on above: Performed By: #### B MP, [id number], A1C WTH eA, PT, MG, CBC ####[address]#### VITB1 ####[facility] , Platelet mean volume (Bld) [Entitic vol] 7.9 fL Normal 6.6-10.1 [facility] Comment on above: Performed By: #### B MP, [id number], A1C WTH eA, PT, MG, CBC ####[address]#### VITB1 ####[facility] , Platelets (Bld) [#/Vol] 217 10*3/uL Normal 150-450 [facility] Comment on above: Performed By: #### B MP, [id number], A1C WTH eA, PT, MG, CBC ####[address]#### VITB1 ####[facility] , RBC (Bld) [#/Vol] 4.28 10*6/uL Normal 3.90-5.60 [facility] Comment on above: Performed By: #### B MP, [id number], A1C WTH eA, PT, MG, CBC ####[address]#### VITB1 ####[facility] , WBC (Bld) [#/Vol] 12.3 10*3/uL High 4.1-10.5 [facility] Comment on above: Performed By: #### B MP, [id number], A1C WTH eA, PT, MG, CBC ####[address]#### VITB1 ####[facility] , ECG 12 lead ECGon 10-22-[address] [facility] Main [place] [address] [place] [address] Electrocardiograph Report Signed Patient: Vick Mercado MR#: [id number] : 1955 Acct:[id number] Age/Sex: 68 / M ADM Date: 10/21/23 Loc: Room: [address] [place] [address] Type: ADM IN Attending Dr: Bonalia Harman DO Ordering Provider: Bon Harman DO [...] Anterior leads Confirmed by JOHN PENA MD ([id number]) on 10/22/2023 2:40:02 PM Referred By: Electronically Signed By:JOHN PENA MD Transcribed By: MUS Signed By John Pena MD 0 10/22/23 1440 Normal [facility] ECH echo transthoracicon [facility] echo transthoracic [facility] Main [place] [address] [place] [address] Echocardiogram Signed Patient: Vick Mercado MR#: [id number] : 1955 Acct:[id number] Age/Sex: 68 / M ADM Date: 10/21/23 Loc: Room: [address] [place] [address] Type: ADM IN Attending Dr: Bon Harman DO Ordering Provider: Bon Harman DO Date of Service: 10/21/23 [facility] echo transthoracic: A-Fib with RVR, weight [...] Transcribed (more content not included)... Normal [facility] Magnesiumon 10-22-2023 Magnesium [Mass/Vol] 2.1 mg/dL Normal 1.9-2.7 [facility] Comment on above: Performed By: #### B MP, [id number], A1C WTH eA, PT, MG, CBC ####[facility]#### VITB1 ####[facility] , Prothrombin Time INRon 10-22 INR Coag (PPP) [Relative time] 2.6 {INR} Normal [facility] Comment on above: Result Comment: [...] heart valves: 3 - 4.5 PERFORMED BY: [facility] [address] [place] [address] PATHOLOGIST INFORMATION SYSTEMS TECHNICIAN ION THOMPSON M.D. Performed By: #### B MP, [id number], A1C WTH eA, PT, MG, CBC ####[address]#### VITB1 ####[facility] , PT Coag (PPP) [Time] 29.1 s High 9.0-12.9 [facility] Comment on above: Result Comment: A he matocrit value greater than 55% may lead to inaccurate results in coagulation testing. Patients having hematocrit values >55% require a special collection tube for coagulation studies. Please contact the laboratory at [phone] for redraw instructions. Performed By: #### B MP, [id number], A1C WTH eA, PT, MG, CBC ####[address]#### VITB1 ####[facility] , Vit. B12/Folate Profileon Cobalamin (Vitamin B12) [Mass/Vol] 436 pg/mL Normal 180-914 [facility] Comment on above: Performed By: #### B MP, [id number], A1C WTH eA, PT, MG, CBC ####[address]#### VITB1 ####[facility] , Folate 33.0 ng/mL Normal >5.9 [facility] Comment on above: Result Comment: Toya te reference range: >5.9 ng/ml The WHO technical consultation on folate and vitamin b12 deficiencies has determined that folate concentrations less than 4 ng/ml are considered deficient. PERFORMED BY: [facility] [address] [place] [address] PATHOLOGIST INFORMATION SYSTEMS TECHNICIAN ION THOMPSON M.D. Performed By: #### B MP, [id number], A1C WTH eA, PT, MG, CBC ####[address]#### VITB1 ####[facility] , Vitamin B1 (Thiamine) Bloodo n 10-22-2023 Vitamin B1 (Thiamine) Blood 173.4 Normal 66.5-200.0 [facility] Comment on above: Result Comment: This test was developed and its performance characteristics determined by [facility]. It has not been cleared or approved by the Food and Drug Administration. Performed at: - [facility] [id number] Dental Ceramist Helper: Johnson Rene MD, Phone: [phone] PERFORMED BY: [address] [address] PATHOLOGIST INFORMATION SYSTEMS TECHNICIAN ION THOMPSON M.D. Performed By: #### B MP, [id number], A1C WTH eA, PT, MG, CBC ####[address]#### VITB1 ####[facility] , B-Type Natriuretic Peptideon 10-21-2023 Natriuretic peptide B (Bld) [Mass/Vol] 954.0 pg/mL High 5-100 [facility] Comment on above: Result Comment: PERF ORMED BY: [place] [address] PATHOLOGIST INFORMATION SYSTEMS TECHNICIAN ION THOMPSON M.D. Performed By: #### B [employer]OUSING [employer] ANALYST, CMP, MG, HS TROP, PTT, PT, CK, CBC ####[address] Complete Blood Count Auto Di ffon 10-21-2023 Basophils (Bld) [#/Vol] 0.1 10*3/uL Normal 0.0-0.2 [facility] Comment on above: Result Comment: PERF ORMED BY: [place] [address] PATHOLOGIST INFORMATION SYSTEMS TECHNICIAN ION THOMPSON M.D. Performed By: #### B HOUSING [employer] ANALYST, CMP, MG, HS TROP, PTT, PT, CK, CBC ####[address] Basophils/100 WBC (Bld) 0.9 % Normal . [facility] Comment on above: Performed By: #### B [employer] ANALYST, CMP, MG, HS TROP, PTT, PT, CK, CBC ####[address] Eosinophils (Bld) [#/Vol] 0.3 10*3/uL Normal 0.0-0.45 [facility] Comment on above: Performed By: #### B [employer] ANALYST, CMP, MG, HS TROP, PTT, PT, CK, CBC ####[address] Eosinophils/100 WBC (Bld) 1.9 % Normal . [facility] Comment on above: Performed By: #### B [employer] ANALYST, CMP, MG, HS TROP, PTT, PT, CK, CBC ####[address] Erythrocyte distribution width (RBC) [Ratio] 12.5 % Normal 12.0-14.8 [facility] Comment on above: Performed By: #### B [employer] ANALYST, CMP, MG, HS TROP, PTT, PT, CK, CBC ####[address] Hematocrit (Bld) [Volume fraction] 42.0 % Normal 38.8-50.0 [facility] Comment on above: Performed By: #### B [employer] ANALYST, CMP, MG, HS TROP, PTT, PT, CK, CBC ####[address] Hemoglobin (Bld) [Mass/Vol] 14.4 g/dL Normal 13.0-17.0 [facility] Comment on above: Performed By: #### B [employer] ANALYST, CMP, MG, HS TROP, PTT, PT, CK, CBC ####[address] Lymphocytes (Bld) [#/Vol] 2.5 10*3/uL Normal 1.00-4.8 [facility] Comment on above: Performed By: #### B [employer]ING [employer] ANALYST, CMP, MG, HS TROP, PTT, PT, CK, CBC ####[address] Lymphocytes/100 WBC (Bld) 18.7 % Normal . [facility] Comment on above: Performed By: #### B [employer]ING [employer] ANALYST, CMP, MG, HS TROP, PTT, PT, CK, CBC ####[address] MCH (RBC) [Entitic mass] 30.9 pg Normal 27.5-35.2 [facility] Comment on above: Performed By: #### B [employer] ANALYST, CMP, MG, HS TROP, PTT, PT, CK, CBC ####[address] MCV (RBC) [Entitic vol] 90.4 fL Normal 83.5-101 [facility] Comment on above: Performed By: #### B [employer] ANALYST, CMP, MG, HS TROP, PTT, PT, CK, CBC ####[address] Mean Corpuscular HGB Conc 34.2 g/dL Normal 32.5-35.6 [facility] Comment on above: Performed By: #### B [employer] ANALYST, CMP, MG, HS TROP, PTT, PT, CK, CBC ####[address] Monocytes (Bld) [#/Vol] 1.3 10*3/uL High 0.0-0.8 [facility] Comment on above: Performed By: #### B [employer] ANALYST, CMP, MG, HS TROP, PTT, PT, CK, CBC ####[address] Monocytes/100 WBC (Bld) 18.03 % Normal 0.00-20.00 [facility] Comment on above: Performed By: #### B [employer] ANALYST, CMP, MG, HS TROP, PTT, PT, CK, CBC ####[address] Monocytes/100 WBC (Bld) 9.6 % Normal . [facility] Comment on above: Performed By: #### B [employer] ANALYST, CMP, MG, HS TROP, PTT, PT, CK, CBC ####[address] Neutrophils (Bld) [#/Vol] 9.2 10*3/uL High 1.8-7.7 [facility] Comment on above: Performed By: #### B [employer] ANALYST, CMP, MG, HS TROP, PTT, PT, CK, CBC ####[address] Neutrophils/100 WBC (Bld) 68.9 % Normal . [facility] Comment on above: Performed By: #### B [employer] ANALYST, CMP, MG, HS TROP, PTT, PT, CK, CBC ####[address] NRBC% 0.1 /100{WBC} Normal 0-0.5 [facility] Comment on above: Performed By: #### B H[employer]ING [employer] ANALYST, CMP, MG, HS TROP, PTT, PT, CK, CBC ####[address] Platelet mean volume (Bld) [Entitic vol] 8.2 fL Normal 6.6-10.1 [facility] Comment on above: Performed By: #### B H[employer]ING [employer] ANALYST, CMP, MG, HS TROP, PTT, PT, CK, CBC ####[address] Platelets (Bld) [#/Vol] 252 10*3/uL Normal 150-450 [facility] Comment on above: Performed By: #### B H[employer]ING [employer] ANALYST, CMP, MG, HS TROP, PTT, PT, CK, CBC ####[address] RBC (Bld) [#/Vol] 4.65 10*6/uL Normal 3.90-5.60 [facility] Comment on above: Performed By: #### B [employer] ANALYST, CMP, MG, HS TROP, PTT, PT, CK, CBC ####[address] WBC (Bld) [#/Vol] 13.4 10*3/uL High 4.1-10.5 [facility] Comment on above: Performed By: #### B H[employer]ING [employer] ANALYST, CMP, MG, HS TROP, PTT, PT, CK, CBC ####[address] Comprehensive Metabolic Pane kyrie 10-21-2023 Albumin [Mass/Vol] 4.6 g/dL Normal 3.5-5.7 [facility] Comment on above: Performed By: #### B H[employer]ING [employer] ANALYST, CMP, MG, HS TROP, PTT, PT, CK, CBC ####[address] Albumin/Globulin [Mass ratio] 1.4 {ratio} Normal [facility] Comment on above: Performed By: #### B [employer] ANALYST, CMP, MG, HS TROP, PTT, PT, CK, CBC ####[address] ALP [Catalytic activity/Vol] 58 U/L Normal 34-104 [facility] Comment on above: Performed By: #### B H[employer]ING [employer] ANALYST, CMP, MG, HS TROP, PTT, PT, CK, CBC ####[address] ALT [Catalytic activity/Vol] 18 U/L Normal 7-52 [facility] Comment on above: Performed By: #### B [employer]ING [employer] ANALYST, CMP, MG, HS TROP, PTT, PT, CK, CBC ####[address] Anion gap [Moles/Vol] 12.4 mmol/L Normal 6.0-15.0 [facility] Comment on above: Performed By: #### B H[employer]ING [employer] ANALYST, CMP, MG, HS TROP, PTT, PT, CK, CBC ####[address] AST [Catalytic activity/Vol] 22 U/L Normal 13-39 [facility] Comment on above: Performed By: #### B [employer] ANALYST, CMP, MG, HS TROP, PTT, PT, CK, CBC ####[address] Bilirubin [Mass/Vol] 1.0 mg/dL Normal 0.3-1.0 [facility] Comment on above: Performed By: #### B [employer]ING [employer] ANALYST, CMP, MG, HS TROP, PTT, PT, CK, CBC ####[address] Calcium [Mass/Vol] 9.8 mg/dL Normal 8.6-10.3 [facility] Comment on above: Performed By: #### B H[employer]ING [employer] ANALYST, CMP, MG, HS TROP, PTT, PT, CK, CBC ####[address] Chloride [Moles/Vol] 103 mmol/L Normal 98-107 [facility] Comment on above: Performed By: #### B [employer] ANALYST, CMP, MG, HS TROP, PTT, PT, CK, CBC ####[address] CO2 [Moles/Vol] 25.8 mmol/L Normal 21.0-31.0 [facility] Comment on above: Performed By: #### B [employer]ING [employer] ANALYST, CMP, MG, HS TROP, PTT, PT, CK, CBC ####[address] Creatinine [Mass/Vol] 0.91 mg/dL Normal 0.70-1.30 [facility] Comment on above: Performed By: #### B HOUSING [employer] ANALYST, CMP, MG, HS TROP, PTT, PT, CK, CBC ####[address] Creatinine Clr Calc Pharmacy 90.42 Normal [facility] Comment on above: Performed By: #### B [employer]ING [employer] ANALYST, CMP, MG, HS TROP, PTT, PT, CK, CBC ####[address] GFR/1.73 sq M.predicted MDRD (S/P/Bld) [Vol rate/Area] mL/min/{1.73_m2} Normal [facility] Comment on above: Performed By: #### B [employer] ANALYST, CMP, MG, HS TROP, PTT, PT, CK, CBC ####[address] Globulin (S) [Mass/Vol] 3.3 g/dL Normal [facility] Comment on above: Performed By: #### B [employer]ING [employer] ANALYST, CMP, MG, HS TROP, PTT, PT, CK, CBC ####[address] Glucose [Mass/Vol] 116 mg/dL High 70-100 [facility] Comment on above: Result Comment: [facility] Glucose Reference Range is dependent on time and content of last meal. Glucose of more than 200 mg/dL in a nonstressed, ambulatory subject supports the diagnosis of Diabetes Mellitus. ADA recommended reference range Performed By: #### B H[employer]ING [employer] ANALYST, CMP, MG, HS TROP, PTT, PT, CK, CBC ####[address] Potassium [Moles/Vol] 4.2 mmol/L Normal 3.5-5.1 [facility] Comment on above: Performed By: #### B H[employer]ING [employer] ANALYST, CMP, MG, HS TROP, PTT, PT, CK, CBC ####[address] Protein [Mass/Vol] 7.9 g/dL Normal 6.4-8.9 [facility] Comment on above: Performed By: #### B H[employer]ING [employer] ANALYST, CMP, MG, HS TROP, PTT, PT, CK, CBC ####[address] Sodium [Moles/Vol] 137 mmol/L Normal 136-145 [facility] Comment on above: Performed By: #### B H[employer]ING [employer] ANALYST, CMP, MG, HS TROP, PTT, PT, CK, CBC ####[address] Urea nitrogen [Mass/Vol] 17 mg/dL Normal 7-25 [facility] Comment on above: Performed By: #### B H[employer]ING GRANT ANALYST, CMP, MG, HS TROP, PTT, PT, CK, CBC ####[place] [id number] [place] [id number] [facility] Creatine Kinaseon 10-21-2023 CK [Catalytic activity/Vol] 67 U/L Normal 30-223 [facility] Comment on above: Performed By: #### B HOUSING [employer] ANALYST, CMP, MG, HS TROP, PTT, PT, CK, CBC ####[place] [address] [place] [address] [facility] ECG 12 lead ECGon 10-21-2023 [address] [place] [address] Electrocardiograph Report Signed Patient: Vick Mercado MR#: [id number] : 1955 Acct:[id number] Age/Sex: 68 / M ADM Date: 10/21/23 Loc: Room: [address] [place] [address] Type: ADM IN Attending Dr: Bon Harman [...] Steven Aldridge MD 10/21/23 1930 Normal [facility] Magnesiumon 10-21-2023 Magnesium [Mass/Vol] 2.3 mg/dL Normal 1.9-2.7 [facility] Comment on above: Result Comment: PERF ORMED BY: [place] [address] PATHOLOGIST INFORMATION SYSTEMS TECHNICIAN ION THOMPSON M.D. Performed By: #### B HOUSING [employer] ANALYST, CMP, MG, HS TROP, PTT, PT, CK, CBC ####[facility] [place] [address] [facility] Partial Thromboplastin Timeo n 10-21-2023 aPTT Coag (Bld) [Time] 45.0 s High 25.1-36.5 Th e [facility] Comment on above: Result Comment: A he matocrit value greater than 55% may lead to inaccurate results in coagulation testing. Patients having hematocrit values >55% require a special collection tube for coagulation studies. Please contact the laboratory at [phone] for redraw instructions. PERFORMED BY: [facility] [address] [place] [address] PATHOLOGIST INFORMATION SYSTEMS TECHNICIAN ION THOMPSON M.D. Performed By: #### B H[employer]ING [employer] ANALYST, CMP, MG, HS TROP, PTT, PT, CK, CBC ####[place] [address] [place] [address] [facility] Prothrombin Time INRon 10-21 INR Coag (PPP) [Relative time] 3.2 {INR} Normal [facility] Comment on above: Result Comment: [...] 3 - 4.5 Performed By: #### B H[employer]ING [employer] ANALYST, CMP, MG, HS TROP, PTT, PT, CK, CBC ####[place] [address] [place] [address] [facility] PT Coag (PPP) [Time] 35.4 s High 9.0-12.9 [facility] Comment on above: Result Comment: A he matocrit value greater than 55% may lead to inaccurate results in coagulation testing. Patients having hematocrit values >55% require a special collection tube for coagulation studies. Please contact the laboratory at [phone] for redraw instructions. Performed By: #### B HOUSING GRANT ANALYST, CMP, MG, HS TROP, PTT, PT, CK, CBC ####[address] [place] [address] [facility] Troponin I High Sensitivityo n 10-21-2023 Troponin I High Sensitivity 9.4 pg/mL Normal 0.0-20.0 [facility] Comment on above: Result Comment: PERF ORMED BY: [place] [id number] PATHOLOGIST INFORMATION SYSTEMS TECHNICIAN ION THOMPSON M.D. Performed By: #### B HOUSING GRANT ANALYST, CMP, MG, HS TROP, PTT, PT, CK, CBC ####[facility] [address] [place] [address] [facility] XR chest 1V portableon 10-21 XR chest 1V portable [facility] [address] [place] [address] [place] [address] XRay Report Signed Patient: Vick Mercado MR#: [id number] : 1955 Acct:[id number] Age/Sex: 68 / M ADM Date: 10/21/23 Loc: ER Room: Type: [facility] ER Attending Dr: Copies to: Steven Aldridge MD Ordering Provider: Steven Aldridge MD Date of Service: 10/21/23 XR/XR chest 1V portable: Shortness of Breath/Dyspnea Plain film chest Single view HISTORY: Shortness of breath for 3 days COMPARISON: 02/23/2023 FINDINGS: SUPPORT DEVICES: None POSTSURGICAL CHANGES: Cervical spine fixation hardware. Eek screw in the left humeral head. HEART: Within normal limits PULMONARY HIWOT: Within normal limits MEDIASTINUM: Unremarkable LUNGS AND PLEURA: No acute lung process, pleural effusion or pneumothorax identified. BONY STRUCTURES: Thoracic spondylosis ADDITIONAL FINDINGS None XR/XR chest 1V portable IMPRESSION: No acute process. Impression dictated by: Antoni Pizano M.D.10/21/2023 3:35 PM Dictation Location: [place] [address] Transcribed By: [facility] 10/21/23 153 Dictated By: Antoni Pizano DO 10/21/231533 Signed By: 10/21/23 153 Normal [facility] Basic Metabolic Panelon 11-3 Anion gap [Moles/Vol] 12.2 mmol/L Normal 6.0-15.0 [facility] e [facility] Comment on above: Performed By: #### B MP, CBC ####[place] [id number] [facility] Calcium [Mass/Vol] 9.5 mg/dL Normal 8.6-10.3 [facility] Comment on above: Result Comment: PERF ORMED BY: [facility] [address] [place] [address] PATHOLOGIST INFORMATION SYSTEMS TECHNICIAN ION THOMPSON M.D. Performed By: #### B MP, CBC ####[place] [id number] [place] Chloride [Moles/Vol] 103 mmol/L Normal 98-107 [facility] Comment on above: Performed By: #### B MP, CBC ####[place] [id number] [facility] CO2 [Moles/Vol] 25.9 mmol/L Normal 21.0-31.0 [facility] Comment on above: Performed By: #### B MP, CBC ####[place] [id number] [facility] Creatinine [Mass/Vol] 0.78 mg/dL Normal 0.70-1.30 [facility] Comment on above: Performed By: #### B MP, CBC ####[place] [id number] [place] GFR/1.73 sq M.predicted MDRD (S/P/Bld) [Vol rate/Area] mL/min/{1.73_m2} Normal [facility] Comment on above: Performed By: #### B MP, CBC ####[place] [id number] [facility] Glucose [Mass/Vol] 133 mg/dL High 70-100 [facility] Comment on above: Result Comment: [place] Glucose Reference Range is dependent on time and content of last meal. Glucose of more than 200 mg/dL in a nonstressed, ambulatory subject supports the diagnosis of Diabetes Mellitus. ADA recommended reference range Performed By: #### B MP, CBC ####[facility] [address] Potassium [Moles/Vol] 4.1 mmol/L Normal 3.5-5.1 [facility] Comment on above: Performed By: #### B MP, CBC ####[facility] Sodium [Moles/Vol] 137 mmol/L Normal 136-145 [facility] Comment on above: Performed By: #### B MP, CBC ####[facility] [place] [id number] [facility] Urea nitrogen [Mass/Vol] 22 mg/dL Normal 7-25 [facility] Comment on above: Performed By: #### B MP, CBC ####[facility] Basophils Auto (Bld) [#/Vol] Ordered By: Jairo Wild on 09-01-2023 Basophils (Bld) [#/Vol] 0.1 10*3/uL 0.0-0.2 [facility] Basophils/100 WBC Auto (Bld) Ordered By: Jairo Wild on 09-01-2023 Basophils/100 WBC (Bld) 0.6 % . [facility] Calcium [Mass/volume] in Ser um or PlasmaOrdered By: Jairo Wild on 09-01-2023 Calcium [Mass/Vol] 9.5 mg/dL 8.6-10.3 [facility] Carbon dioxide, total [Moles /volume] in Serum or PlasmaOrdered By: Jairo Wild on 09-01-2023 CO2 [Moles/Vol] 25.9 mmol/L 21.0-31.0 [facility] Chloride [Moles/volume] in S zina or PlasmaOrdered By: Jairo Wild on 09-01-2023 Chloride [Moles/Vol] 103 mmol/L 98-107 [facility] Complete Blood Count Auto Di ffon 09-01-2023 Basophils (Bld) [#/Vol] 0.1 10*3/uL Normal 0.0-0.2 [facility] Comment on above: Result Comment: PERF ORMED BY: [facility] [place] [address] PATHOLOGIST INFORMATION SYSTEMS TECHNICIAN ION THOMPSON M.D. Performed By: #### B MP, CBC ####[address] Basophils/100 WBC (Bld) 0.6 % Normal . [facility] Comment on above: Performed By: #### B MP, CBC ####[address] Eosinophils (Bld) [#/Vol] 0.4 10*3/uL Normal 0.0-0.45 [facility] Comment on above: Performed By: #### B MP, CBC ####[address] Eosinophils/100 WBC (Bld) 4.0 % Normal . [facility] Comment on above: Performed By: #### B MP, CBC ####[address] Erythrocyte distribution width (RBC) [Ratio] 12.5 % Normal 12.0-14.8 [facility] Comment on above: Performed By: #### B MP, CBC ####[address] Hematocrit (Bld) [Volume fraction] 43.5 % Normal 38.8-50.0 [facility] Comment on above: Performed By: #### B MP, CBC ####[address] Hemoglobin (Bld) [Mass/Vol] 14.9 g/dL Normal 13.0-17.0 [facility] Comment on above: Performed By: #### B MP, CBC ####[address] Lymphocytes (Bld) [#/Vol] 2.5 10*3/uL Normal 1.00-4.8 [facility] Comment on above: Performed By: #### B MP, CBC ####[address] Lymphocytes/100 WBC (Bld) 24.6 % Normal . [facility] Comment on above: Performed By: #### B MP, CBC ####[address] MCH (RBC) [Entitic mass] 31.5 pg Normal 27.5-35.2 [facility] Comment on above: Performed By: #### B MP, CBC ####[address] MCV (RBC) [Entitic vol] 92.2 fL Normal 83.5-101 [facility] Comment on above: Performed By: #### B MP, CBC ####[address] Mean Corpuscular HGB Conc 34.2 g/dL Normal 32.5-35.6 [facility] Comment on above: Performed By: #### B MP, CBC ####[address] Monocytes (Bld) [#/Vol] 1.0 10*3/uL High 0.0-0.8 [facility] Comment on above: Performed By: #### B MP, CBC ####[address] Monocytes/100 WBC (Bld) 9.7 % Normal . [facility] Comment on above: Performed By: #### B MP, CBC ####[address] Neutrophils (Bld) [#/Vol] 6.3 10*3/uL Normal 1.8-7.7 [facility] Comment on above: Performed By: #### B MP, CBC ####[address] Neutrophils/100 WBC (Bld) 61.1 % Normal . [facility] Comment on above: Performed By: #### B MP, CBC ####[address] NRBC% 0.1 /100{WBC} Normal 0-0.5 [facility] Comment on above: Performed By: #### B MP, CBC ####[address] Platelet mean volume (Bld) [Entitic vol] 8.0 fL Normal 6.6-10.1 [facility] Comment on above: Performed By: #### B MP, CBC ####[address] Platelets (Bld) [#/Vol] 235 10*3/uL Normal 150-450 [facility] Comment on above: Performed By: #### B MP, CBC ####[address] RBC (Bld) [#/Vol] 4.72 10*6/uL Normal 3.90-5.60 [facility] Comment on above: Performed By: #### B MP, CBC ####[address] WBC (Bld) [#/Vol] 10.4 10*3/uL Normal 4.1-10.5 [facility] Comment on above: Performed By: #### B LUIZ, CBC ####[address] Creatinine [Mass/volume] in Serum or PlasmaOrdered By: Jairo Wild on 09-01-2023 Creatinine [Mass/Vol] 0.78 mg/dL 0.70-1.30 [facility] ECG 12 lead ECGon 09-01-[address]23 [address] [facility] Main [place] [address] [place] [address] Electrocardiograph Report Signed Patient: Vick Mercado MR#: [id number] : 1955 Acct:[id number] Age/Sex: 68 / M ADM Date: 09/01/23 Loc: Room: Type: [facility] Attending Dr: Jairo Wild DO Ordering Provider: [...] replaced Sinus rhythm Confirmed by SARAH MATA [facility] ([id number][facility] on 09/01/2023 2:23:20 PM Referred By: SHAQUILLE WILD Electronically Signed By:DONATO BURGER MD [facility] Transcribed By: MUS Signed By Jorge Burger MD 09/01/23 1423 Normal [facility] Eosinophils Auto (Bld) [#/Vo l]Ordered By: Jairo Wild on 09-01-2023 Eosinophils (Bld) [#/Vol] 0.4 10*3/uL 0.0-0.45 [facility] Eosinophils/100 WBC Auto (Bl d)Ordered By: Jairo Wild on 09-01-2023 Eosinophils/100 WBC (Bld) 4.0 % . [facility] Erythrocyte distribution wid th Auto (RBC) [Ratio]Ordered By: Jairo Wild on 09-01-2023 Erythrocyte distribution width (RBC) [Ratio] 12.5 % 12.0-14.8 [facility] Glucose [Mass/volume] in Ser um or PlasmaOrdered By: Jairo Wild on 09-01-2023 Glucose [Mass/Vol] 133 mg/dL 70-100 [facility] Comment on above: ADA recommended refe rence rangeRandom Glucose Reference Range is dependent on time and content of last meal. Glucose of more than 200 mg/dL in a nonstressed, ambulatory subject supports the diagnosis of Diabetes Mellitus. Hematocrit Auto (Bld) [Volum e fraction]Ordered By: Jairo Wild on 09-01-2023 Hematocrit (Bld) [Volume fraction] 43.5 % 38.8-50.0 [facility] Hemoglobin [Mass/volume] in BloodOrdered By: Jairo Wild on 09-01-2023 Hemoglobin (Bld) [Mass/Vol] 14.9 g/dL 13.0-17.0 [facility] Leukocytes [#/volume] correc rehan for nucleated erythrocytes in Blood by Automated counOrdered By: Jairo Wild on 09-01-2023 WBC corrected for nucl RBC Auto (Bld) [#/Vol] 10.4 10*3/uL 4.1-10.5 [facility] Lymphocytes Auto (Bld) [#/Vo l]Ordered By: Jairo Wild on 09-01-2023 Lymphocytes (Bld) [#/Vol] 2.5 10*3/uL 1.00-4.8 [facility] Lymphocytes/100 WBC Auto (Bl d)Ordered By: Jairo Wild on 09-01-2023 Lymphocytes/100 WBC (Bld) 24.6 % . [facility] MCH Auto (RBC) [Entitic mass ]Ordered By: Jairo Wild on 09-01-2023 MCH (RBC) [Entitic mass] 31.5 pg 27.5-35.2 [facility] MCHC Auto (RBC) [Mass/Vol]Or dered By: Jairo Wild on 09-01-2023 MCHC (RBC) [Mass/Vol] 34.2 g/dL 32.5-35.6 [facility] MCV Auto (RBC) [Entitic vol] Ordered By: Jairo Wild on 09-01-2023 MCV (RBC) [Entitic vol] 92.2 fL 83.5-101 [facility] Monocytes Auto (Bld) [#/Vol] Ordered By: Jairo Wild on 09-01-2023 Monocytes (Bld) [#/Vol] 1.0 10*3/uL 0.0-0.8 [facility] Monocytes/100 WBC Auto (Bld) Ordered By: Jairo Wild on 09-01-2023 Monocytes/100 WBC (Bld) 9.7 % . [facility] Neutrophils Auto (Bld) [#/Vo l]Ordered By: Jairo Wild on 09-01-2023 Neutrophils (Bld) [#/Vol] 6.3 10*3/uL 1.8-7.7 [facility] Neutrophils/100 WBC Auto (Bl d)Ordered By: Jairo Wild on 09-01-2023 Neutrophils/100 WBC (Bld) 61.1 % . [facility] No Panel InformationOrdered By: Jairo Wild on 09-01-2023 Estimated GFR (CKD-EPI) > 60.0 mL/Min [facility] Creatinine Clearance (Chem N/A [facility] Nucleated erythrocytes [Pres ence] in Blood by Automated countOrdered By: Jairo Wild on 09-01-2023 Nucleated RBC Auto Ql (Bld) 0.1 /100{WBC} 0-0.5 [facility] Platelet mean volume Auto (B ld) [Entitic vol]Ordered By: Jairo Wild on 09-01-2023 Platelet mean volume (Bld) [Entitic vol] 8.0 fL 6.6-10.1 [facility] Platelets Auto (Bld) [#/Vol] Ordered By: Jairo Wild on 09-01-2023 Platelets (Bld) [#/Vol] 235 10*3/uL 150-450 [facility] Potassium [Moles/volume] in Serum or PlasmaOrdered By: Jairo Wild on 09-01-2023 Potassium [Moles/Vol] 4.1 mmol/L 3.5-5.1 [facility] RBC Auto (Bld) [#/Vol]Ordere d By: Jairo Wild on 09-01-2023 RBC (Bld) [#/Vol] 4.72 10*6/uL 3.90-5.60 [facility] Serum or plasma anion gap de terminationOrdered By: Jairo Wild on 09-01-2023 Anion gap [Moles/Vol] 12.2 mmol/L 6.0-15.0 [facility] Sodium [Moles/volume] in Ser um or PlasmaOrdered By: Jairo Wild on 09-01-2023 Sodium [Moles/Vol] 137 mmol/L 136-145 [facility] Urea nitrogen [Mass/volume] in Serum or PlasmaOrdered By: Jairo Wild on 09-01-2023 Urea nitrogen [Mass/Vol] 22 mg/dL 7-25 [facility] WBC Auto (Bld) [#/Vol]Ordere d By: Jairo Wild on 09-01-2023 WBC (Bld) [#/Vol] 10.4 10*3/uL 4.1-10.5 [facility] NM HEART BLOOD POOL EJECTION FRACTION WALL MOTION (MUGA)on 08-24-2023 NM HEART BLOOD POOL EJECTION FRACTION WALL MOTION (MUGA) Interpreted By: John Pena and Giannuzzi Michael STUDY: MUGA Performing facility: [facility], [address] [place] [address], [address], [address] Provider: Karlo Aldridge RN, TOPPER PRESS OPERATOR PCP: Dr. Gabino Joseph Supervising provider: John Pena MD INDICATION: NICM HISTORY: Gender: M; Age: 68 y/o ; Height: HT 177.8 cm cm; Weight: WT 94.802 kg kg. CAD; HTN; CHF Quit smoking 15 years ago. Cardiac catheterization on 2022. COMPARISON: Previous nuclear testing completed [id number] Muga EF=33% at [facility]. Previous echo testing completed [id number] EF=40-45% at [facility]. ACCESSION NUMBER(S): [id number] ORDERING CLINICIAN: KARLO ALDRIDGE TECHNIQUE: The patient received an IV injection of 3 ml of stannous pyrophosphate (PYP) using the in-vivo method of labeling red blood cells. After 30 minutes the patient received another IV injection of 25.7 mCi of Technetium 99m pertechnetate. Planar images of the left ventricle were obtained in the RWANDAN 45, Lt Lateral and anterior projections. FINDINGS: [...] John Pena 08/24/2023 5:04 PM Dictation workstation: [id number] [facility] Falls Screening (Age 18+)on 06-13-2023 Fall risk assessment a) No falls within the last year Michael Hardwick DO Work Phone: Falls Screening (Age 18+) Adult Michael Sutherland 250 DO Work Phone: Office Visit (Cardiology)on [...] A DAY Basic Metabolic Panel; Status:Active; Requested for:[id number]; IO EKG Electrocardiogram- 12 Lead; Status:Complete; Done: [id number] IO MUGA (Nuclear Testing); Status:Hold For - Scheduling; Requested for:[id number]; Radiologist to Determine Optimal Study : Y What are the patient's signs and symptoms? : ISLAS, fatigue Overweight with body mass index (BMI) of 29 to 29.9 in adult Healthy Weight Tips; Status:Complete; Done: [id number] Patient Instructions PLAN: Through informed decision making [...] a day. 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 He denies any dyspnea on exertion, [...] Sherin (more content not included)... Normal [employer] [facility] MUGA SCAN INJECTIONon [facility] MUGA SCAN INJECTION Patient Name: VICK MERCADO STUDY: MUGA Performing facility: [facility], [address] [place] [address], [address], [address] Provider: Balbir Lucio DO, [facility] PCP: Dr. Gabino Corbin Supervising provider: John Pena MD INDICATION: CHF Non ischemic cardiomyopathy HISTORY: Gender: M; Age: 68 y/o ; Height: 0 cm; Weight: 0 kg. HTN; CHF Quit smoking 15 years ago. Cardiac catheterization on 2022. COMPARISON: No comparison. Previous echo testing completed [id number] EF=40-45% [place] [facility] ACCESSION NUMBER(S): [id number]; [id number] ORDERING CLINICIAN: JORGE LUCIO TECHNIQUE: The patient received an IV injection of 3 ml of stannous pyrophosphate (PYP) using the in-vivo method of labeling red blood cells. After 15 minutes the patient received another IV injection of 26.5 mCi of Technetium 99m pertechnetate. Planar images of the left ventricle were obtained in the RWANDAN 45, Lt Lateral and anterior projections. FINDINGS: [...] Electronically signed by: KINGS BANEGAS MD Normal [facility] No Panel Informationon 05-05 Normal [facility] Heart-Sand[facility] erick 250 DO Work Phone: Office Visit (Cardiology)on 04-15-2023 [...] For - Scheduling,Retrospective By Protocol Authorization; Requested for:[id number]; Radiologist to Determine Optimal Study : Y What are the patient's signs and symptoms? : chf, non-ischemic cardiomyopathy Basic Metabolic Panel; Status:Active - Retrospective Authorization; Requested for:[id number]; Renew: Carvedilol 6.25 MG Oral Tablet; TAKE 1 TABLET BY MOUTH TWICE DAILY WITH MEALS Renew: Spironolactone 25 MG Oral Tablet; TAKE 0.5 TABLET Daily CHF (NYHA class II, ACC/AHA stage C), Nonischemic cardiomyopathy, Shortness of breath Brain Natriuretic Peptide BNP; Status:Active - Retrospective Authorization; Requested for:[id number]; Overweight with body mass index (BMI) of 29 to 29.9 in adult Healthy Weight Tips; Status:Complete - Retrospective Authorization; Done: [id number] Some eating tips that can help you lose weight.; Status:Complete - Retrospective Authorization; Done: [id number] Patient Instructions Please bring all medicines, vitamins, [...] negative for complaint. Vitals Vital Signs Recorded: [id number] 11:53AM Heart Rate60, L Radial Hfuzbdeq592, LUE, Sitting Ggexrtvtr82, LUE, Sitting Height5 ft 10 in Jbfzaz227 lb BMI Lpzueevzmt52.99 kg/m2 BSA Calculated2.13 Tobacco Useb) No PHQ-2 [...] Exam Constituti (more content not included)... Normal [employer] Tobacco Screening.on 023 Adult depression screening assessment No [facility] 250 DO Work Phone: Fall risk assessment a) No falls within the last year [facility] 250 DO Work Phone: Tobacco use status CPHS b) No [facility] 250 DO Work Phone: Activated partial thrombopla stin time (aPTT) in platelet poor plasma by coagulation aOrdered By: Papo Lucio on 03-02-2023 aPTT Coag (PPP) [Time] 30.5 s 25.1-36.5 [facility] Cholesterol [Mass/volume] in Serum or PlasmaOrdered By: Papo Lucio on 03-02-2023 Cholesterol [Mass/Vol] 225 mg/dL 140-200 [facility] Comment on above: Chol less than 200 m g/dl low riskChol 201-239 mg/dl borderline riskChol 240 mg/dl and greater high risk Cholesterol in LDL Calc [Mas s/Vol]Ordered By: Papo Lucio on 03-02-2023 Cholesterol in LDL [Mass/Vol] 148 mg/dL 0-100 [facility] Comment on above: LDL ATP III CLASSIFI CATIONLDL less than 100 mg/dL OptimalLDL 100-129 mg/dL Near or above optimalLDL 130-159 mg/dL Borderline highLDL 160-189 mg/dL HighLDL greater than 189 mg/dL Very high Cholesterol in VLDL Calc [Ma ss/Vol]Ordered By: Papo Lucio on 03-02-2023 Cholesterol in VLDL [Mass/Vol] 34 mg/dL [facility] Coagulation Profileon 2022 aPTT Coag (Bld) [Time] 30.5 s Normal 25.1-36.5 Th e [facility] Comment on above: Result Comment: PERF ORMED BY: [facility] [address] [place] [id number] PATHOLOGIST INFORMATION SYSTEMS TECHNICIAN ION THOMPSON M.D. Performed By: #### P P, LIPID ####[place] [id number] [facility] INR Coag (PPP) [Relative time] 1.0 {INR} Normal [facility] Comment on above: Result Comment: [...] 4.5 Performed By: #### P P, LIPID ####[place] [id number] [facility] PT Coag (PPP) [Time] 12.0 s Normal 9.0-12.9 [facility] Comment on above: Performed By: #### P P, LIPID ####[place] [id number] [facility] Laboratory - Chemistry and C hemistry - challengeon 03-02-2023 Cholesterol [Mass/Vol] 225\\S\\225 above hig h threshold 140-200 [facility] 250 DO Work Phone: Comment on above: Chol less than 200 m g/dl low risk Chol 201-239 mg/dl borderline risk Chol 240 mg/dl and greater high risk Cholesterol in LDL [Mass/Vol] 148\\S\\148 above high threshold 0-100 [facility] 250 DO Work Phone: Comment on above: LDL ATP III CLASSIFI CATION LDL less than 100 mg/dL Optimal LDL 100-129 mg/dL Near or above optimal LDL 130-159 mg/dL Borderline high LDL 160-189 mg/dL High LDL greater than 189 mg/dL Very high Laboratory - CoagulationOrde red By: Papo Lucio on 03-02-2023 PT Coag (PPP) [Time] 12.0 s 9.0-12.9 [facility] Lipid Panelon 03-02-2023 Cholesterol [Mass/Vol] 225 mg/dL High 140-200 Th e [facility] Comment on above: Result Comment: Chol less than 200 mg/dl low risk Chol 201-239 mg/dl borderline risk Chol 240 mg/dl and greater high risk Performed By: #### P P, LIPID ####[facility] [address] [place] [address] [facility] Cholesterol in HDL [Mass/Vol] 43 mg/dL Normal 29-71 [facility] Comment on above: Result Comment: HDL CHOL ATP-III CLASSIFICATION Cardiovascular Risk HDL > or equal to 60 mg/dL LOW HDL < 40 mg/dL HIGH Performed By: #### P P, LIPID ####[facility] [address] [place] [address] [facility] Cholesterol.total/Chol esterol in HDL [Mass ratio] 5.2 {ratio} Normal <5.0 [facility] Comment on above: Result Comment: PERF ORMED BY: [facility] [address] [facility] [place] [id number] PATHOLOGIST INFORMATION SYSTEMS TECHNICIAN ION THOMPSON M.D. Performed By: #### P P, LIPID ####[address] LDL Cholesterol,Calculated 148 mg/dL High 0-100 [facility] Comment on above: Result Comment: LDL ATP III CLASSIFICATION LDL less than 100 mg/dL Optimal LDL 100-129 mg/dL Near or above optimal LDL 130-159 mg/dL Borderline high LDL 160-189 mg/dL High LDL greater than 189 mg/dL Very high Performed By: #### P P, LIPID ####[address] Triglyceride w/Reflex 171 mg/dL High 0-149 [facility] Comment on above: Result Comment: TRIG ATP III CLASSIFICATION TRIG less than 150 mg/dL Normal TRIG 150-199 mg/dL Borderline high TRIG 200-500 mg/dL High TRIG greater than 500 mg/dL Very high Standard traceable to the Center for Disease Conrtrol and Prevention (CDC) test method. Performed By: #### P P, LIPID ####[address] VLDL CHOLESTEROL 34 mg/dL Normal [facility] Comment on above: Performed By: #### P P, LIPID ####[address] No Panel Informationon 03-02 30.5\\S\\30.5 Normal 25.1-36.[address] [facility] STACK MediaCavalier County Memorial HospitalFoodzai 250 DO Work Phone: Comment on above: PERFORMED BY:[address] [place], [place] [phone] MEDICAL DIRECTORION THOMPSON M.D. 1.0\\S\\1.[address] [facility] ClinicRedstone LogisticsCavalier County Memorial HospitalFoodzai 250 DO Work Phone: Comment on above: [...] with mechanical heart valves: 3 - 4.5 12.0\\S\\12.0 Normal 9.0-12.[address] [facility] [employer] erick 250 DO Work Phone: 5.2\\S\\5.2 Normal <5.0 [facility] erick 250 DO Work Phone: Comment on above: PERFORMED BY:[facility] [place], [place] [phone] MEDICAL DIRECTORION THOMPSON M.D. 34\\S\\[address] [facility] STACK MediaSan[facility] erick 250 DO Work Phone: 171\\S\\171 above high threshold 0-149 [facility] 250 DO Work Phone: Comment on above: TRIG ATP III CLASSIF ICATION TRIG less than 150 mg/dL Normal TRIG 150-199 mg/dL Borderline high TRIG 200-500 mg/dL High TRIG greater than 500 mg/dL Very high Standard traceable to the Center for Disease Conrtrol and Prevention (CDC) test method. 43\\S\\43 Normal 29-71 [facility] 250 DO Work Phone: Comment on above: HDL CHOL ATP-III CLA SSIFICATION Cardiovascular Risk HDL > or equal to 60 mg/dL LOW HDL < 40 mg/dL HIGH Platelet poor plasma interna tional normalized ratio (INR) by coagulation assay (relatOrdered By: Papo Lucio on 03-02-2023 INR Coag (PPP) [Relative time] 1.0 {INR} [facility] Comment on above: INR Therapeutic Rang e [...] 03-02-2023 Cholesterol in HDL [Mass/Vol] 43 mg/dL 29-71 [facility] Comment on above: HDL CHOL ATP-III CLA SSIFICATION Cardiovascular RiskHDL > or equal to 60 mg/dL LOWHDL < 40 mg/dL HIGH Serum or plasma total choles terol/high density lipoprotein (HDL) cholesterol mass ratOrdered By: Papo Lucio on 03-02-2023 Cholesterol.total/Chol esterol in HDL [Mass ratio] 5.2 {ratio} <5.0 [facility] Triglyceride [Mass/volume] i n Serum or PlasmaOrdered By: Papo Lucio on 03-02-2023 Triglyceride [Mass/Vol] 171 mg/dL 0-149 [facility] Comment on above: TRIG ATP III CLASSIF ICATIONTRIG less than 150 mg/dL NormalTRIG 150-199 mg/dL Borderline highTRIG 200-500 mg/dL High TRIG greater than 500 mg/dL Very highStandard traceable to the Center for Disease Conrtrol and Prevention (CDC) test method. CBC AUTO DIFFon 03-01-2023 BASO # 0.1 103/ul Normal 0.0-0.1 [facility] Comment on above: Performed By: #### C BC #### [facility] [address] [address] [address] Will Bain Basophils/100 WBC (Bld) 0.6 % Normal 0.2-2.0 [facility] Comment on above: Performed By: #### C BC #### [facility] [address] [address] [address] Will Bain EO # 0.3 103/ul Normal 0.0-0.7 [facility] Comment on above: Performed By: #### C BC #### [facility] [address] [address] [address] Will Bain Eosinophils/100 WBC (Bld) 3.5 % Normal 0.9-7.0 [facility] Comment on above: Performed By: #### C BC #### [facility] [address] [address] [address] Will Bain Erythrocyte distribution width (RBC) [Ratio] 12.9 % Normal 11.0-15.0 [facility] Comment on above: Performed By: #### C BC #### [facility] [address] [address] [address] Will Bain Hematocrit (Bld) [Volume fraction] 40.4 % Critically low 42.0-54.0 [facility] Comment on above: Performed By: #### C BC #### [facility] [address] [place] [address] Dr. Will Bain Hemoglobin (Bld) [Mass/Vol] 13.5 g/dL Critically low 14.0-18.0 [facility] Comment on above: Performed By: #### C BC #### [facility] [address] [place] [address] Dr. Will Bain IG # 0.02 10e3/ul Normal 0.00-0.03 [facility] Comment on above: Performed By: #### C BC #### [facility] [address] [place] [address] Dr. Will Bain IG % 0.2 % Normal 0.0-0.5 [facility] Comment on above: Performed By: #### C BC #### [facility] [address] [place] [address] Dr. Will Bain LYMPH # 2.3 103/ul Normal 1.2-3.8 [facility] Comment on above: Performed By: #### C BC #### [facility] [address] [place] [address] Dr. Will Bain Lymphocytes/100 WBC (Bld) 27.8 % Normal 20.5-60.0 [facility] Comment on above: Performed By: #### C BC #### [facility] [address] [place] [address] Dr. Will Bain MANUAL DIFF REQ NO Normal [facility] Comment on above: Performed By: #### C BC #### [facility] [address] [place] [address] Dr. Will Bain MCH (RBC) [Entitic mass] 29.9 pg Normal 25.9-34.0 [facility] Comment on above: Performed By: #### C BC #### [facility] [address] [address] [address] Will Bain MCHC (RBC) [Mass/Vol] 33.4 g/dL Normal 29.9-35.2 [facility] Comment on above: Performed By: #### C BC #### [facility] [address] [address] [address] Will Bain MCV (RBC) [Entitic vol] 89.6 fL Normal 80.0-94.0 [facility] Comment on above: Performed By: #### C BC #### [facility] [address] [address] [address] Will Bain MONO # 0.9 103/ul Critically high 0.3-0.8 [facility] Comment on above: Performed By: #### C BC #### [facility] [address] [place] [address] Dr. Will Bain Monocytes/100 WBC (Bld) 10.3 % Normal 1.7-12.0 [facility] Comment on above: Performed By: #### C BC #### [facility] [address] [address] [address] Will Bain NEUT # 4.7 103/ul Normal 1.4-6.5 [facility] Comment on above: Performed By: #### C BC #### [facility] [address] [place] [address] Dr. Will Bain Neutrophils/100 WBC (Bld) 57.6 % Normal 43.0-75.0 [facility] Comment on above: Performed By: #### C BC #### [facility] [address] [address] [address] Will Bain Platelet mean volume (Bld) [Entitic vol] 9.3 fL Critically low 9.5-13.5 [facility] Comment on above: Performed By: #### C BC #### [facility] [address] [address] [address] Will Bain PLT 273 103/ul Normal 150-450 [facility] Comment on above: Performed By: #### C BC #### [facility] [address] [address] [address] Will Bain RBC 4.51 106/ul Critically low 4.70-6.10 [facility] Comment on above: Performed By: #### C BC #### [facility] [id number] Will Bain WBC 8.2 103/ul Normal 4.0-11.0 [facility] Comment on above: Performed By: #### C BC #### [facility] [id number] Will Bain MG MAMM DIAGNOSTIC 3D RO CA Don 03-01-2023 MG MAMM DIAGNOSTIC 3D RO CAD Patient: VICK MERCADO Exam Date: 03/01/2023 : 1955 Gender:M Ordering : DR JAIRO CORBIN D.O. Admission #: [id number] Family : Order #: [id number] CLICK HERE TO VIEW EXAM RADIOLOGY REPORT PROCEDURE: MAMMOGRAM DIAGNOSTIC 3D BILATERAL CAD, 03/01/2023, 10:22 ULTRASOUND BREAST LEFT LIMITED, 03/01/2023, 11:05 COMPARISON: None. INDICATIONS: Hypertrophy of breast Calculator Name NCI Breast Cancer Risk Assessment Tool 5 Year Breast Cancer Risk Not Applicable. Lifetime Breast Cancer Risk Not Applicable. Personal Breast Cancer No Personal Ovarian Cancer No Treatments None Family Cancers None LOCATION: [facility] BREAST COMPOSITION: Almost entirely fatty. FINDINGS: DIAGNOSTIC [...] Barba MD on 03/01/2023 at 12:13 Normal [facility] PROF CHEM 8 (BAS METB)on Anion gap [Moles/Vol] 13.8 mmol/L Normal [facility] Comment on above: Performed By: #### A LT, AST, BMP #### [facility] [address] [address] [address] Will Bain Calcium [Mass/Vol] 9.0 mg/dL Normal 8.5-10.1 [facility] Comment on above: Performed By: #### A LT, AST, BMP #### [facility] [address] [place] [address] Dr. Will Bain Chloride [Moles/Vol] 101 mmol/L Normal 98-107 [facility] Comment on above: Performed By: #### A LT, AST, BMP #### [facility] [address] [place] [address] Dr. Will Bain CO2 [Moles/Vol] 26.6 mmol/L Normal 21.0-32.0 [facility] Comment on above: Performed By: #### A LT, AST, BMP #### [facility] [address] [place] [address] Dr. Will Bain Creatinine [Mass/Vol] 0.92 mg/dL Normal 0.70-1.30 [facility] Comment on above: Performed By: #### A LT, AST, BMP #### [facility] [address] [place] [address] Dr. Will Bain EGFR-AF GREENLANDIC >60 Normal >=60 [facility] Comment on above: Performed By: #### A LT, AST, BMP #### [facility] [address] [place] [address] Dr. Will Bain EGFR-NON AF GREENLANDIC >60 Normal >=60 [facility] Comment on above: Performed By: #### A LT, AST, BMP #### [facility] [address] [place] [address] Dr. Will Bain Glucose [Mass/Vol] 121 mg/dL Critically high 74-[address] [facility] Comment on above: Performed By: #### A LT, AST, BMP #### [facility] [address] [place] [address] Dr. Will Bain Potassium [Moles/Vol] 4.4 mmol/L Normal 3.5-5.1 [facility] Comment on above: Performed By: #### A LT, AST, BMP #### [facility] [address] [address] [address] Will Bain Sodium [Moles/Vol] 137 mmol/L Normal 136-145 [facility] Comment on above: Performed By: #### A LT, AST, BMP #### [facility] [address] [address] [address] Will Bain Urea nitrogen [Mass/Vol] 21.0 mg/dL Critically high 7.0-18.0 [facility] Comment on above: Performed By: #### A LT, AST, BMP #### [facility] [address] [address] [address] Will Bain Urea nitrogen/Creatinine [Mass ratio] 22.8 mg/mg Normal [facility] Comment on above: Performed By: #### A LT, AST, BMP #### [facility] [address] [address] [address] Will Bain SGOTon 03-01-2023 AST [Catalytic activity/Vol] 24 U/L Normal 15-37 [facility] Comment on above: Performed By: #### A LT, AST, BMP ####[facility] [id number] [address]Dr. Will Bain [facility] 03-01-2023 ALT [Catalytic activity/Vol] 31 U/L Normal 16-63 [facility] Comment on above: Performed By: #### A LT, AST, BMP #### [facility] [address] [address] [address] Will Bain US BREAST LEFT LIMITEDon US BREAST LEFT LIMITED Patient: VICK OLIVEIRA AM Exam Date: 03/01/2023 : 1955 Gender:M Ordering : DR JAIRO CORBIN D.O. Admission #: [id number] Family : Order #: [id number] CLICK HERE TO VIEW EXAM RADIOLOGY REPORT PROCEDURE: MAMMOGRAM DIAGNOSTIC 3D BILATERAL CAD, 03/01/2023, 10:22 ULTRASOUND BREAST LEFT LIMITED, 03/01/2023, 11:05 COMPARISON: None. INDICATIONS: Hypertrophy of breast Calculator Name NCI Breast Cancer Risk Assessment Tool 5 Year Breast Cancer Risk Not Applicable. Lifetime Breast Cancer Risk Not Applicable. Personal Breast Cancer No Personal Ovarian Cancer No Treatments None Family Cancers None LOCATION: [facility] BREAST COMPOSITION: Almost entirely fatty. FINDINGS: DIAGNOSTIC [...] MD on 03/01/2023 at 12:13 Normal [facility] [facility] Basic Metabolic Panelon 05-2 Anion gap [Moles/Vol] Not performed Normal 6.0-15.0 [facility] Comment on above: Performed By: #### B MP, MG ####[address] Calcium [Mass/Vol] 9.3 mg/dL Normal 8.6-10.3 [facility] Comment on above: Performed By: #### B MP, MG ####[place] [id number] [facility] Chloride [Moles/Vol] 100 mmol/L Normal 98-107 [facility] Comment on above: Performed By: #### B MP, MG ####[place] [id number] [facility] CO2 [Moles/Vol] 28.4 mmol/L Normal 21.0-31.0 [facility] Comment on above: Performed By: #### B MP, MG ####[place] [id number] [facility] Creatinine [Mass/Vol] 0.81 mg/dL Normal 0.70-1.30 [facility] Comment on above: Performed By: #### B MP, MG ####[place] [id number] [facility] Creatinine Clr Calc Pharmacy 90.12 Normal [facility] Comment on above: Performed By: #### B MP, MG ####[place] [id number] GFR/1.73 sq M.predicted MDRD (S/P/Bld) [Vol rate/Area] mL/min/{1.73_m2} Normal [facility] Comment on above: Performed By: #### B MP, MG ####[address] Glucose [Mass/Vol] 110 mg/dL High 70-100 [facility] Comment on above: Result Comment: [facility] Glucose Reference Range is dependent on time and content of last meal. Glucose of more than 200 mg/dL in a nonstressed, ambulatory subject supports the diagnosis of Diabetes Mellitus. ADA recommended reference range Performed By: #### B MP, MG ####[address] Potassium Normal 3.5-5.1 [facility] Comment on above: Result Comment: Spec imen hemolyzed, redraw requested Performed By: #### B MP, MG ####[address] Sodium Normal 136-145 [facility] Comment on above: Result Comment: Spec imen hemolyzed, redraw requested Performed By: #### B MP, MG ####[address] Urea nitrogen [Mass/Vol] 25 mg/dL Normal 7-25 [facility] Comment on above: Performed By: #### B MP, MG ####[address] Calcium [Mass/volume] in Ser um or PlasmaOrdered By: Brad Livingston on 02-25-2023 Calcium [Mass/Vol] 9.3 mg/dL 8.6-10.3 [facility] Carbon dioxide, total [Moles /volume] in Serum or PlasmaOrdered By: Brad Livingston on 02-25-2023 CO2 [Moles/Vol] 28.4 mmol/L 21.0-31.0 [facility] Chloride [Moles/volume] in S zina or PlasmaOrdered By: Brad Livingston on 02-25-2023 Chloride [Moles/Vol] 100 mmol/L 98-107 [facility] Creatinine [Mass/volume] in Serum or PlasmaOrdered By: Brad Livingston on 02-25-2023 Creatinine [Mass/Vol] 0.81 mg/dL 0.70-1.30 [facility] Glucose [Mass/volume] in Ser um or PlasmaOrdered By: Brad Livingston on 02-25-2023 Glucose [Mass/Vol] 110 mg/dL 70-100 [facility] Comment on above: ADA recommended refe rence rangeRandom Glucose Reference Range is dependent on time and content of last meal. Glucose of more than 200 mg/dL in a nonstressed, ambulatory subject supports the diagnosis of Diabetes Mellitus. Magnesiumon 02-25-2023 Magnesium Normal 1.9-2.7 [facility] Comment on above: Result Comment: Spec imen hemolyzed, redraw requested PERFORMED BY: [facility] [address] [facility] [place] [address] PATHOLOGIST INFORMATION SYSTEMS TECHNICIAN ION THOMPSON M.D. Performed By: #### B MP MG ####[facility] [address] [place] [address] [facility] Magnesium [Mass/volume] in S zina or PlasmaOrdered By: Brad Livingston on 02-25-2023 Magnesium [Mass/Vol] 2.3 mg/dL 1.9-2.7 [facility] No Panel InformationOrdered By: Brad Livingston on 02-25-2023 Estimated GFR (CKD-EPI) > 60.0 mL/Min [facility] Creatinine Clearance (Chem 90.12 [facility] Potassium [Moles/volume] in Serum or PlasmaOrdered By: Brad Livingston on 02-25-2023 Potassium [Moles/Vol] 4.3 mmol/L 3.5-5.1 [facility] Redraw Magnesiumon Magnesium [Mass/Vol] 2.3 mg/dL Normal 1.9-2.7 [facility] Comment on above: Result Comment: PERF ORMED BY: [facility] [address] [address] PATHOLOGIST INFORMATION SYSTEMS TECHNICIAN ION THOMPSON M.D. Performed By: #### R EDRAW MG, REDRAW K, REDRAW NA ####[place] [id number] Redraw Potassiumon 3 Potassium [Moles/Vol] 4.3 mmol/L Normal 3.5-5.1 [facility] Comment on above: Performed By: #### R EDRAW MG, REDRAW K, REDRAW NA ####[place] [id number] Redraw Sodiumon 02-25-2023 Sodium [Moles/Vol] 137 mmol/L Normal 136-145 [facility] Comment on above: Performed By: #### R EDRAW MG, REDRAW K, REDRAW NA ####[address] Serum or plasma anion gap de terminationOrdered By: Brad Livingston on 02-25-2023 Anion gap [Moles/Vol] TNP [facility] Comment on above: Test not performed Sodium [Moles/volume] in Ser um or PlasmaOrdered By: Brad Livingston on 02-25-2023 Sodium [Moles/Vol] 137 mmol/L 136-145 [facility] Urea nitrogen [Mass/volume] in Serum or PlasmaOrdered By: Brad Livingston on 02-25-2023 Urea nitrogen [Mass/Vol] 25 mg/dL 7-25 [facility] Basic Metabolic Panelon 02-01 Anion gap [Moles/Vol] 13.2 mmol/L Normal 6.0-15.0 Th e [facility] Comment on above: Performed By: #### M G, CBC, HS TROP, BMP ####[address] Calcium [Mass/Vol] 9.5 mg/dL Normal 8.6-10.3 [facility] Comment on above: Performed By: #### M G, CBC, HS TROP, BMP ####[address] Chloride [Moles/Vol] 103 mmol/L Normal 98-107 [facility] Comment on above: Performed By: #### M G, CBC, HS TROP, BMP ####[address] CO2 [Moles/Vol] 27.5 mmol/L Normal 21.0-31.0 [facility] Comment on above: Performed By: #### M G, CBC, HS TROP, BMP ####[address] Creatinine [Mass/Vol] 0.79 mg/dL Normal 0.70-1.30 [facility] Comment on above: Performed By: #### M G, CBC, HS TROP, BMP ####[address] Creatinine Clr Calc Pharmacy 101.40 Normal [facility] Comment on above: Performed By: #### M G, CBC, HS TROP, BMP ####[address] GFR/1.73 sq M.predicted MDRD (S/P/Bld) [Vol rate/Area] mL/min/{1.73_m2} Normal [facility] Comment on above: Performed By: #### M G, CBC, HS TROP, BMP ####[address] Glucose [Mass/Vol] 117 mg/dL High 70-100 [facility] Comment on above: Result Comment: [place] Glucose Reference Range is dependent on time and content of last meal. Glucose of more than 200 mg/dL in a nonstressed, ambulatory subject supports the diagnosis of Diabetes Mellitus. ADA recommended reference range Performed By: #### M G, CBC, HS TROP, BMP ####[place] [id number] [facility] Potassium [Moles/Vol] 3.7 mmol/L Normal 3.5-5.1 [facility] Comment on above: Performed By: #### M G, CBC, HS TROP, BMP ####[address] Sodium [Moles/Vol] 140 mmol/L Normal 136-145 [facility] Comment on above: Performed By: #### M G, CBC, HS TROP, BMP ####[address] Urea nitrogen [Mass/Vol] 14 mg/dL Normal 7-25 [facility] Comment on above: Performed By: #### M G, CBC, HS TROP, BMP ####[address] Basophils Auto (Bld) [#/Vol] Ordered By: Mirna Aldridge on 02-24-2023 Basophils (Bld) [#/Vol] 0.1 10*3/uL 0.0-0.2 [facility] Basophils/100 WBC Auto (Bld) Ordered By: Mirna Aldridge on 02-24-2023 Basophils/100 WBC (Bld) 0.6 % . [facility] Complete Blood Count Auto Di ffon 02-24-2023 Basophils (Bld) [#/Vol] 0.1 10*3/uL Normal 0.0-0.2 [facility] Comment on above: Result Comment: PERF ORMED BY: [facility] [address] [place] [address] PATHOLOGIST INFORMATION SYSTEMS TECHNICIAN ION THOMPSON M.D. Performed By: #### M G, CBC, HS TROP, BMP ####[address] Basophils/100 WBC (Bld) 0.6 % Normal . [facility] Comment on above: Performed By: #### M G, CBC, HS TROP, BMP ####[address] Eosinophils (Bld) [#/Vol] 0.3 10*3/uL Normal 0.0-0.45 [facility] Comment on above: Performed By: #### M G, CBC, HS TROP, BMP ####[address] Eosinophils/100 WBC (Bld) 3.0 % Normal . [facility] Comment on above: Performed By: #### M G, CBC, HS TROP, BMP ####[address] Erythrocyte distribution width (RBC) [Ratio] 13.3 % Normal 12.0-14.8 [facility] Comment on above: Performed By: #### M G, CBC, HS TROP, BMP ####[address] Hematocrit (Bld) [Volume fraction] 39.3 % Normal 38.8-50.0 [facility] Comment on above: Performed By: #### M G, CBC, HS TROP, BMP ####[address] Hemoglobin (Bld) [Mass/Vol] 13.4 g/dL Normal 13.0-17.0 [facility] Comment on above: Performed By: #### M G, CBC, HS TROP, BMP ####[address] Lymphocytes (Bld) [#/Vol] 2.4 10*3/uL Normal 1.00-4.8 [facility] Comment on above: Performed By: #### M G, CBC, HS TROP, BMP ####[address] Lymphocytes/100 WBC (Bld) 20.9 % Normal . [facility] Comment on above: Performed By: #### M G, CBC, HS TROP, BMP ####[address] MCH (RBC) [Entitic mass] 30.2 pg Normal 27.5-35.2 [facility] Comment on above: Performed By: #### M G, CBC, HS TROP, BMP ####[address] MCV (RBC) [Entitic vol] 88.4 fL Normal 83.5-101 [facility] Comment on above: Performed By: #### M G, CBC, HS TROP, BMP ####[address] Mean Corpuscular HGB Conc 34.2 g/dL Normal 32.5-35.6 [facility] Comment on above: Performed By: #### M G, CBC, HS TROP, BMP ####[address] Monocytes (Bld) [#/Vol] 1.0 10*3/uL High 0.0-0.8 [facility] Comment on above: Performed By: #### M G, CBC, HS TROP, BMP ####[address] Monocytes/100 WBC (Bld) 9.1 % Normal . [facility] Comment on above: Performed By: #### M G, CBC, HS TROP, BMP ####[address] Neutrophils (Bld) [#/Vol] 7.6 10*3/uL Normal 1.8-7.7 [facility] Comment on above: Performed By: #### M G, CBC, HS TROP, BMP ####[address] Neutrophils/100 WBC (Bld) 66.4 % Normal . [facility] Comment on above: Performed By: #### M G, CBC, HS TROP, BMP ####[address] NRBC% 0.1 /100{WBC} Normal 0-0.5 [facility] Comment on above: Performed By: #### M G, CBC, HS TROP, BMP ####[address] Platelet mean volume (Bld) [Entitic vol] 7.7 fL Normal 6.6-10.1 [facility] Comment on above: Performed By: #### M G, CBC, HS TROP, BMP ####[place] [id number] [place] [id number] [facility] Platelets (Bld) [#/Vol] 267 10*3/uL Normal 150-450 [facility] Comment on above: Performed By: #### M G, CBC, HS TROP, BMP ####[place] [id number] [place] [id number] [facility] RBC (Bld) [#/Vol] 4.44 10*6/uL Normal 3.90-5.60 [facility] Comment on above: Performed By: #### M G, CBC, HS TROP, BMP ####[place] [id number] [place] [id number] [facility] WBC (Bld) [#/Vol] 11.5 10*3/uL High 4.1-10.5 [facility] Comment on above: Performed By: #### M G, CBC, HS TROP, BMP ####[place] [id number] [facility] ECG 12 lead ECGon 02-24-2023 [address] [place] [address] Electrocardiograph Report Signed Patient: Vick Mercado MR#: [id number] : 1955 Acct:[id number] Age/Sex: 67 / M ADM Date: 02/23/23 Loc: Room: [address] [place] [address] Type: ADM IN Attending Dr: Brad Livingston [...] By Maia Davis MD 0842 Normal [facility] echo transthoracicon [facility] echo transthoracic [facility] Main [place] [address] [place] [address] Echocardiogram Signed Patient: Vick Mercado MR#: [id number] : 1955 Acct:[id number] Age/Sex: 67 / M ADM Date: 02/23/23 Loc: Room: [address] [place] [address] Type: ADM IN Attending Dr: Brad Livingston DO Ordering Provider: Mirna Aldridge APRN Date of Service: 02/24/23 [facility] echo transthoracic: congestive 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 Copies to: Kings Banegas MD, FACC Mirna Aldridge, POULTRY SCIENTIST Height: 70 in Weight: 206 lb Performed [...] 02/24/23 1046 Signed By: Kings Banegas MD, [facility] 02/24/23 1546 Normal [facility] Eosinophils Auto (Bld) [#/Vo l]Ordered By: Mirna Aldridge on 02-24-2023 Eosinophils (Bld) [#/Vol] 0.3 10*3/uL 0.0-0.45 [facility] Eosinophils/100 WBC Auto (Bl d)Ordered By: Mirna Aldridge on 02-24-2023 Eosinophils/100 WBC (Bld) 3.0 % . [facility] Erythrocyte distribution wid th Auto (RBC) [Ratio]Ordered By: Mirna Aldridge on 02-24-2023 Erythrocyte distribution width (RBC) [Ratio] 13.3 % 12.0-14.8 [facility] Hematocrit Auto (Bld) [Volum e fraction]Ordered By: Mirna Aldridge on 02-24-2023 Hematocrit (Bld) [Volume fraction] 39.3 % 38.8-50.0 [facility] Hemoglobin [Mass/volume] in BloodOrdered By: Mirna Aldridge on 02-24-2023 Hemoglobin (Bld) [Mass/Vol] 13.4 g/dL 13.0-17.0 [facility] Leukocytes [#/volume] correc rehan for nucleated erythrocytes in Blood by Automated counOrdered By: Mirna Aldridge on 02-24-2023 WBC corrected for nucl RBC Auto (Bld) [#/Vol] 11.5 10*3/uL 4.1-10.5 [facility] Lymphocytes Auto (Bld) [#/Vo l]Ordered By: Mirna Aldridge on 02-24-2023 Lymphocytes (Bld) [#/Vol] 2.4 10*3/uL 1.00-4.8 [facility] Lymphocytes/100 WBC Auto (Bl d)Ordered By: Mirna Aldridge on 02-24-2023 Lymphocytes/100 WBC (Bld) 20.9 % . [facility] MCH Auto (RBC) [Entitic mass ]Ordered By: Mirna Aldridge on 02-24-2023 MCH (RBC) [Entitic mass] 30.2 pg 27.5-35.2 [facility] MCHC Auto (RBC) [Mass/Vol]Or dered By: Mirna Aldridge on 02-24-2023 MCHC (RBC) [Mass/Vol] 34.2 g/dL 32.5-35.6 [facility] MCV Auto (RBC) [Entitic vol] Ordered By: Mirna Aldridge on 02-24-2023 MCV (RBC) [Entitic vol] 88.4 fL 83.5-101 [facility] Magnesiumon 02-24-2023 Magnesium [Mass/Vol] 2.2 mg/dL Normal 1.9-2.7 [facility] Comment on above: Result Comment: PERF ORMED BY: [facility] [address] [place] [address] PATHOLOGIST INFORMATION SYSTEMS TECHNICIAN ION THOMPSON M.D. Performed By: #### M G, CBC, HS TROP, BMP ####[facility] [place] [address] [facility] Monocytes Auto (Bld) [#/Vol] Ordered By: Mirna Aldridge on 02-24-2023 Monocytes (Bld) [#/Vol] 1.0 10*3/uL 0.0-0.8 [facility] Monocytes/100 WBC Auto (Bld) Ordered By: Mirna Aldridge on 02-24-2023 Monocytes/100 WBC (Bld) 9.1 % . [facility] Neutrophils Auto (Bld) [#/Vo l]Ordered By: Mirna Aldridge on 02-24-2023 Neutrophils (Bld) [#/Vol] 7.6 10*3/uL 1.8-7.7 [facility] Neutrophils/100 WBC Auto (Bl d)Ordered By: Mirna Aldridge on 02-24-2023 Neutrophils/100 WBC (Bld) 66.4 % . [facility] Nucleated erythrocytes [Pres ence] in Blood by Automated countOrdered By: Mirna Aldridge on 02-24-2023 Nucleated RBC Auto Ql (Bld) 0.1 /100{WBC} 0-0.5 [facility] Platelet mean volume Auto (B ld) [Entitic vol]Ordered By: Mirna Aldridge on 02-24-2023 Platelet mean volume (Bld) [Entitic vol] 7.7 fL 6.6-10.1 [facility] Platelets Auto (Bld) [#/Vol] Ordered By: Mirna Aldridge on 02-24-2023 Platelets (Bld) [#/Vol] 267 10*3/uL 150-450 [facility] RBC Auto (Bld) [#/Vol]Ordere d By: Mirna Aldridge on 02-24-2023 RBC (Bld) [#/Vol] 4.44 10*6/uL 3.90-5.60 [facility] Troponin I High Sensitivityo n 02-24-2023 Troponin I High Sensitivity 27.8 pg/mL High 0.0-20.0 [facility] Comment on above: Result Comment: PERF ORMED BY: [facility] [address] [place] [address] PATHOLOGIST INFORMATION SYSTEMS TECHNICIAN ION THOMPSON M.D. Performed By: #### M G, CBC, HS TROP, BMP ####[facility] [address] [place] [address] [facility] Troponin I High Sensitivity 25.9 pg/mL High 0.0-20.0 [facility] Comment on above: Result Comment: PERF ORMED BY: [facility] [address] [facility] [place] [address] PATHOLOGIST INFORMATION SYSTEMS TECHNICIAN ION THOMPSON M.D. Performed By: #### H S TROP #### [facility] [address] Troponin I High Sensitivity 27.4 pg/mL High 0.0-20.0 [facility] Comment on above: Result Comment: PERF ORMED BY: [facility] [address] [place] [address] PATHOLOGIST INFORMATION SYSTEMS TECHNICIAN ION THMOPSON M.D. Performed By: #### H S TROP ####[facility] [address] [place] [address] [facility] Troponin I.cardiac [Mass/vol ume] in Serum or Plasma by Detection limit <= 0.01 ng/Ordered By: Mirna Aldridge on 02-24-2023 Troponin I.cardiac DL <= 0.01 ng/mL [Mass/Vol] 27.8 pg/mL 0.0-20.0 [facility] WBC Auto (Bld) [#/Vol]Ordere d By: Mirna Aldridge on 02-24-2023 WBC (Bld) [#/Vol] 11.5 10*3/uL 4.1-10.5 [facility] B-Type Natriuretic Peptideon 02-23-2023 Natriuretic peptide B (Bld) [Mass/Vol] 532.0 pg/mL High 5-100 [facility] Comment on above: Result Comment: PERF ORMED BY: [facility] [address] [place] [address] PATHOLOGIST INFORMATION SYSTEMS TECHNICIAN ION THOMPSON M.D. Performed By: #### B MP, HS TROP, BNP ####[facility] [address] [place] [address] [facility] Basic Metabolic Panelon 02-01 Anion gap [Moles/Vol] 14.5 mmol/L Normal 6.0-15.0 Th e [facility] Comment on above: Performed By: #### B MP, HS TROP, BNP ####[address] [address] [place] Calcium [Mass/Vol] 9.8 mg/dL Normal 8.6-10.3 [facility] Comment on above: Performed By: #### B MP, HS TROP, BNP ####[place] [address] [place] [id number] [place] Chloride [Moles/Vol] 103 mmol/L Normal 98-107 [facility] Comment on above: Performed By: #### B MP, HS TROP, BNP ####[place] [id number] [place] CO2 [Moles/Vol] 25.5 mmol/L Normal 21.0-31.0 [facility] Comment on above: Performed By: #### B MP, HS TROP, BNP ####[place] [id number] [place] Creatinine [Mass/Vol] 0.78 mg/dL Normal 0.70-1.30 [facility] Comment on above: Performed By: #### B MP, HS TROP, BNP ####[place] [phone] [place] Creatinine Clr Calc Pharmacy 101.40 Normal [facility] Comment on above: Result Comment: PERF ORMED BY: [facility] [address] [place] [address] PATHOLOGIST INFORMATION SYSTEMS TECHNICIAN ION THOMPSON M.D. Performed By: #### B MP, HS TROP, BNP ####[place] [id number] [place] GFR/1.73 sq M.predicted MDRD (S/P/Bld) [Vol rate/Area] mL/min/{1.73_m2} Normal [facility] Comment on above: Performed By: #### B MP, HS TROP, BNP ####[address] [address] [facility] Glucose [Mass/Vol] 127 mg/dL High 70-100 [facility] Comment on above: Result Comment: [place] Glucose Reference Range is dependent on time and content of last meal. Glucose of more than 200 mg/dL in a nonstressed, ambulatory subject supports the diagnosis of Diabetes Mellitus. ADA recommended reference range Performed By: #### B MP, HS TROP, BNP ####[place] [id number] [place] [id number] [facility] Potassium [Moles/Vol] 4.0 mmol/L Normal 3.5-5.1 [facility] Comment on above: Performed By: #### B MP, HS TROP, BNP ####[address] Sodium [Moles/Vol] 139 mmol/L Normal 136-145 [facility] Comment on above: Performed By: #### B MP, HS TROP, BNP ####[address] Urea nitrogen [Mass/Vol] 15 mg/dL Normal 7-25 [facility] Comment on above: Performed By: #### B MP, HS TROP, BNP ####[place] [id number] [facility] Complete Blood Count Auto Di ffon 02-23-2023 Basophils (Bld) [#/Vol] 0.1 10*3/uL Normal 0.0-0.2 [facility] Comment on above: Order Comment: Unacc eptable specimen due to CLOTTING. Redraw reordered. Result Comment: PERF ORMED BY: [facility] [address] [place] [id number] PATHOLOGIST INFORMATION SYSTEMS TECHNICIAN ION THOMPSON M.D. Performed By: #### C BC ####[address] Basophils/100 WBC (Bld) 0.6 % Normal . [facility] Comment on above: Order Comment: Unacc eptable specimen due to CLOTTING. Redraw reordered. Performed By: #### C BC ####[address] Eosinophils (Bld) [#/Vol] 0.2 10*3/uL Normal 0.0-0.45 [facility] Comment on above: Order Comment: Unacc eptable specimen due to CLOTTING. Redraw reordered. Performed By: #### C BC ####[address] Eosinophils/100 WBC (Bld) 1.6 % Normal . [facility] Comment on above: Order Comment: Unacc eptable specimen due to CLOTTING. Redraw reordered. Performed By: #### C BC ####[address] Erythrocyte distribution width (RBC) [Ratio] 13.5 % Normal 12.0-14.8 [facility] Comment on above: Order Comment: Unacc eptable specimen due to CLOTTING. Redraw reordered. Performed By: #### C BC ####[address] Hematocrit (Bld) [Volume fraction] 39.1 % Normal 38.8-50.0 [facility] Comment on above: Order Comment: Unacc eptable specimen due to CLOTTING. Redraw reordered. Performed By: #### C BC ####[address] Hemoglobin (Bld) [Mass/Vol] 13.3 g/dL Normal 13.0-17.0 [facility] Comment on above: Order Comment: Unacc eptable specimen due to CLOTTING. Redraw reordered. Performed By: #### C BC ####[address] Lymphocytes (Bld) [#/Vol] 1.8 10*3/uL Normal 1.00-4.8 [facility] Comment on above: Order Comment: Unacc eptable specimen due to CLOTTING. Redraw reordered. Performed By: #### C BC ####[address] Lymphocytes/100 WBC (Bld) 15.3 % Normal . [facility] [facility] Comment on above: Order Comment: Unacc eptable specimen due to CLOTTING. Redraw reordered. Performed By: #### C BC ####[address] MCH (RBC) [Entitic mass] 29.9 pg Normal 27.5-35.2 [facility] Comment on above: Order Comment: Unacc eptable specimen due to CLOTTING. Redraw reordered. Performed By: #### C BC ####[address] MCV (RBC) [Entitic vol] 87.9 fL Normal 83.5-101 [facility] Comment on above: Order Comment: Unacc eptable specimen due to CLOTTING. Redraw reordered. Performed By: #### C BC ####[address] Mean Corpuscular HGB Conc 34.0 g/dL Normal 32.5-35.6 [facility] Comment on above: Order Comment: Unacc eptable specimen due to CLOTTING. Redraw reordered. Performed By: #### C BC ####[address] Monocytes (Bld) [#/Vol] 0.9 10*3/uL High 0.0-0.8 [facility] Comment on above: Order Comment: Unacc eptable specimen due to CLOTTING. Redraw reordered. Performed By: #### C BC ####[address] Monocytes/100 WBC (Bld) 17.08 % Normal 0.00-20.00 [facility] Comment on above: Order Comment: Unacc eptable specimen due to CLOTTING. Redraw reordered. Performed By: #### C BC ####[address] Monocytes/100 WBC (Bld) 7.5 % Normal . [facility] Comment on above: Order Comment: Unacc eptable specimen due to CLOTTING. Redraw reordered. Performed By: #### C BC ####[address] Neutrophils (Bld) [#/Vol] 8.9 10*3/uL High 1.8-7.7 [facility] Comment on above: Order Comment: Unacc eptable specimen due to CLOTTING. Redraw reordered. Performed By: #### C BC ####[address] Neutrophils/100 WBC (Bld) 75.0 % Normal . [facility] Comment on above: Order Comment: Unacc eptable specimen due to CLOTTING. Redraw reordered. Performed By: #### C BC ####[address] NRBC% 0.1 /100{WBC} Normal 0-0.5 [facility] Comment on above: Order Comment: Unacc eptable specimen due to CLOTTING. Redraw reordered. Performed By: #### C BC ####[address] Platelet mean volume (Bld) [Entitic vol] 7.7 fL Normal 6.6-10.1 [facility] Comment on above: Order Comment: Unacc eptable specimen due to CLOTTING. Redraw reordered. Performed By: #### C BC ####[address] Platelets (Bld) [#/Vol] 277 10*3/uL Normal 150-450 [facility] Comment on above: Order Comment: Unacc eptable specimen due to CLOTTING. Redraw reordered. Performed By: #### C BC ####[address] RBC (Bld) [#/Vol] 4.46 10*6/uL Normal 3.90-5.60 [facility] Comment on above: Order Comment: Unacc eptable specimen due to CLOTTING. Redraw reordered. Performed By: #### C BC ####[place] [address] [place] WBC (Bld) [#/Vol] 11.8 10*3/uL High 4.1-10.5 [facility] Comment on above: Order Comment: Unacc eptable specimen due to CLOTTING. Redraw reordered. Performed By: #### C BC ####[facility] [id number] [place] [id number] [facility] ECG 12 lead ECGon 02-23-[address] [facility] [address] [place] [address] [place] [address] Electrocardiograph Report Signed Patient: Vick Mercado MR#: [id number] : 1955 Acct:[id number] Age/Sex: 67 / M ADM Date: 02/23/23 Loc: Room: [address] [place] [address] Type: ADM IN Attending Dr: Jair Harp [...] atrial complexes Confirmed by Shalom Germain DO ([id number]) on 02/24/2023 12:56:42 AM Referred By: Electronically Signed By:Shalom Germain DO Transcribed By: MUS Signed By Shalom Germain DO [id number] Normal [facility] Monocyte distribution width [Entitic volume] in Blood by AutomatedOrdered By: Shalom Germain on 02-23-2023 Monocyte distribution width Auto (Bld) [Entitic vol] 17.08 % 0.00-20.00 [facility] Natriuretic peptide B [Mass/ Vol]Ordered By: Shalom Germain on 02-23-2023 Natriuretic peptide B (Bld) [Mass/Vol] 532.0 pg/mL 5-100 [facility] Troponin I High Sensitivityo n 02-23-2023 Troponin I High Sensitivity 23.7 pg/mL High 0.0-20.0 [facility] Comment on above: Result Comment: PERF ORMED BY: [place] [address] PATHOLOGIST INFORMATION SYSTEMS TECHNICIAN ION THOMPSON M.D. Performed By: #### B MP, HS TROP, BNP ####[facility] [id number] [id number] [facility] XR chest 1V portableon 02-23 XR chest 1V portable [facility] [address] [place] [address] XRay Report Signed Patient: Vick Mercado MR#: [id number] : 1955 Acct:[id number] Age/Sex: 67 / M ADM Date: 02/23/23 Loc: ER Room: Type: [facility] ER Attending Dr: Copies to: Shalom Germain [...] Antoni Pizano M.D.02/23/2023 8:57 PM Dictation Location: [place] [address] Transcribed By: [facility] 02/23/232056 Dictated By: Antoni Pizano DO 02/23/232055 Signed By: 02/23/232056 Normal [facility] CT SINUSES WO CONon 02-20-20 [...] clear and well-aerated. Electronically authenticated by: ZARIA [facility] Date: 2023-02-19 18:32 Normal [facility] MRI BRAIN WO CONon 2 MRI BRAIN [...] by: IVÁN BARBA Date: 2022-06-01 11:35 Normal [facility] TSHon 06-01-2022 TSH 2.078 uIU/mL Normal 0.358-3.74 0 [facility] Comment on above: Performed By: #### T SH #### [facility] [address] [place] [address] Dr. Will Bain VITAMIN B12on 06-01-2022 Cobalamin (Vitamin B12) [Mass/Vol] 514.0 pg/mL Normal 193.0-986. 0 [facility] Comment on above: Performed By: #### V ITB12 #### [facility] [address] [address] [address] Will Bain Vital Signs Date Time Vital Sign Value Performing Clinician Facility 05-01-2024 14:20-0400 Body height 177.8 cm [facility] 05-01-2024 14:20-0400 Body mass index (BMI) [Ratio] 31.7 kg/m2 [facility] 05-01-2024 14:20-0400 Body weight 100.35 kg [facility] 05-01-2024 14:20-0400 Diastolic blood pressure 81 mm[Hg] [facility] 05-01-2024 14:20-0400 Heart rate 68 /min [facility] 05-01-2024 14:20-0400 Respiratory rate 12 /min [facility] 05-01-2024 14:20-0400 Systolic blood pressure 144 mm[Hg] [facility] 01-31-2024 15:43-0400 Body height 177.8 cm [facility] 01-31-2024 15:43-0400 Body mass index (BMI) [Ratio] 31.1 kg/m2 [facility] 01-31-2024 15:43-0400 Body weight 98.48 kg [facility] 01-31-2024 15:43-0400 Diastolic blood pressure 91 mm[Hg] [facility] 01-31-2024 15:43-0400 Heart rate 73 /min [facility] 01-31-2024 15:43-0400 Respiratory rate 12 /min [facility] 01-31-2024 15:43-0400 Systolic blood pressure 161 mm[Hg] [facility] 01-30-2024 14:09-0400 Body height 177.8 cm Mary Neal MD Work Phone: [facility] 01-30-2024 14:09-0400 Body mass index (BMI) [Ratio] 31.57 kg/m2 Mary Neal MD Work Phone: [facility] 01-30-2024 14:09-0400 Body weight 99.79 kg Mary Neal MD Work Phone: [facility] 01-30-2024 14:09-0400 Diastolic blood pressure 62 mm[Hg] Mary Neal MD Work Phone: [facility] 01-30-2024 14:09-0400 Heart rate 58 /min Mary Neal MD Work Phone: [facility] 01-30-2024 14:09-0400 Systolic blood pressure 130 mm[Hg] Mary Neal MD Work Phone: [facility] 11-10-2023 13:53-0500 Body height 179.1 cm Mary Neal MD Work Phone: [facility] 11-10-2023 13:53-0500 Body mass index (BMI) [Ratio] 30.98 kg/m2 Mary Neal MD Work Phone: [facility] 11-10-2023 13:53-0500 Body weight 99.34 kg Mary Neal MD Work Phone: [facility] 11-10-2023 13:53-0500 Diastolic blood pressure 82 mm[Hg] Mary Neal MD Work Phone: [facility] 11-10-2023 13:53-0500 Heart rate 72 /min Mary Neal MD Work Phone: [facility] 11-10-2023 13:53-0500 Systolic blood pressure 120 mm[Hg] Mary Neal MD Work Phone: [facility] 11-01-2023 15:30-0500 Body height 177.8 cm DO Jairo Ball Work Phone: [facility] 11-01-2023 15:30-0500 Body weight 98.88 kg DO Jairo Ball Work Phone: [facility] 11-01-2023 15:30-0500 Diastolic blood pressure 77 mm[Hg] DO Jairo Ball Work Phone: [facility] 11-01-2023 15:30-0500 Systolic blood pressure 117 mm[Hg] DO Jairo Ball Work Phone: [facility] 10-24-2023 15:40-0500 Body temperature 97.6 [degF] DO Jairo Ball Work Phone: [facility] 10-24-2023 15:40-0500 Diastolic blood pressure 76 mm[Hg] DO Jairo Ball Work Phone: [facility] 10-24-2023 15:40-0500 Heart rate 65 /min DO Jairo Ball Work Phone: [facility] 10-24-2023 15:40-0500 Respiratory rate 18 /min DO Jairo Ball Work Phone: [facility] 10-24-2023 15:40-0500 SaO2% (BldA) [Mass fraction] 100 % DO Jairo Ball Work Phone: [facility] 10-24-2023 15:40-0500 Systolic blood pressure 135 mm[Hg] DO Jairo Ball Work Phone: [facility] 10-24-2023 06:00-0500 Body weight 94.1 kg DO Jairo Ball Work Phone: [facility] 10-24-2023 04:00-0500 Inhaled oxygen flow rate 2 L/min DO Jairo Ball Work Phone: [facility] 10-21-2023 18:32-0500 Body height 177.8 cm DO Jairo Ball Work Phone: [facility] 10-21-2023 17:16-0500 Diastolic blood pressure 98 mm[Hg] DO Jairo Ball Work Phone: [facility] 10-21-2023 17:16-0500 Heart rate 96 /min DO Jairo Ball Work Phone: [facility] 10-21-2023 17:16-0500 Respiratory rate 16 /min DO Jairo Ball Work Phone: [facility] 10-21-2023 17:16-0500 SaO2% (BldA) [Mass fraction] 94 % DO Jairo Ball Work Phone: [facility] 10-21-2023 17:16-0500 Systolic blood pressure 146 mm[Hg] DO Jairo Ball Work Phone: [facility] 10-21-2023 14:35-0500 Body temperature 98.6 [degF] DO Jairo Ball Work Phone: [facility] 10-21-2023 14:32-0500 Body height 177.8 cm DO Jairo Ball Work Phone: [facility] 10-21-2023 14:32-0500 Body weight 99.1 kg DO Jairo Ball Work Phone: [facility] 09-29-2023 14:04-0500 Body height 179.1 cm Mary Neal MD Work Phone: [facility] 09-29-2023 14:04-0500 Body mass index (BMI) [Ratio] 31.12 kg/m2 Mary Neal MD Work Phone: [facility] 09-29-2023 14:04-0500 Body weight 99.79 kg Mary Neal MD Work Phone: [facility] 09-29-2023 14:04-0500 Diastolic blood pressure 70 mm[Hg] Mary Neal MD Work Phone: [facility] 09-29-2023 14:04-0500 Heart rate 80 /min Mary Neal MD Work Phone: [facility] 09-29-2023 14:04-0500 Systolic blood pressure 120 mm[Hg] Mary Neal MD Work Phone: [facility] 09-13-2023 15:30-0500 Body height 177.8 cm Jairo Ball Other [facility] 09-13-2023 15:30-0500 Body mass index (BMI) [Ratio] 31.53 kg/m2 Jairo Ball Other [facility] [employer] Other 09-13-2023 15:30-0500 Body weight 99.7 kg Jairo Ball Other [facility] [employer] Other 09-13-2023 15:30-0500 Body weight 99.69 kg DO Jairo Ball Work Phone: [facility] 09-13-2023 15:30-0500 Diastolic blood pressure 84 mm[Hg] Jairo Ball Other [facility] 09-13-2023 15:30-0500 Respiratory rate 12 /min Jairo Ball Other [facility] [employer] Other 09-13-2023 15:30-0500 Systolic blood pressure 126 mm[Hg] Jairo Ball Other [facility] 09-05-2023 14:30-0500 Body height 177.8 cm Karlo Aldridge POULTRY SCIENTIST-TOPPER PRESS OPERATOR Work Phone: [facility] 09-05-2023 14:30-0500 Body mass index (BMI) [Ratio] 31.42 kg/m2 Karlo Aldridge POULTRY SCIENTIST-TOPPER PRESS OPERATOR Work Phone: [facility] 09-05-2023 14:30-0500 Body weight 99.34 kg Karlo Aldridge POULTRY SCIENTIST-TOPPER PRESS OPERATOR Work Phone: [facility] 09-05-2023 14:30-0500 Diastolic blood pressure 76 mm[Hg] Karlo Aldridge POULTRY SCIENTIST-TOPPER PRESS OPERATOR Work Phone: [facility] 09-05-2023 14:30-0500 Heart rate 97 /min Karlo Aldridge POULTRY SCIENTIST-TOPPER PRESS OPERATOR Work Phone: [facility] 09-05-2023 14:30-0500 Systolic blood pressure 124 mm[Hg] Karlo Aldridge POULTRY SCIENTIST-TOPPER PRESS OPERATOR Work Phone: [facility] 09-01-2023 08:17-0500 Body height 179.07 cm DO Jairo Ball Work Phone: [facility] 09-01-2023 08:17-0500 Body temperature 97.7 [degF] DO Jairo Ball Work Phone: [facility] 09-01-2023 08:17-0500 Body weight 100 kg DO Jairo Ball Work Phone: [facility] 09-01-2023 08:17-0500 Diastolic blood pressure 66 mm[Hg] DO Jairo Ball Work Phone: [facility] 09-01-2023 08:17-0500 Heart rate 109 /min DO Jairo Ball Work Phone: [facility] 09-01-2023 08:17-0500 SaO2% (BldA) [Mass fraction] 96 % DO Jairo Ball Work Phone: [facility] 09-01-2023 08:17-0500 Systolic blood pressure 114 mm[Hg] DO Jairo Ball Work Phone: [facility] 06-13-2023 14:47-0400 Body height 177.8 cm Jairo E Ball Work Phone: RQ-Iavdbvusud-Jybyfii y 250 DO Work Phone: 06-13-2023 14:47-0400 Body mass index (BMI) [Ratio] 30.44 kg/m2 Jairo E Ball Work Phone: IX-Wfpfyptagk-Qrlndwk y 250 DO Work Phone: 06-13-2023 14:47-0400 Body surface area Derived from formula 2.14 m2 Jairo E Ball Work Phone: FK-Rfeavsarnx-Valkraq y 250 DO Work Phone: 06-13-2023 14:47-0400 Body weight 96.22 kg Jairo E Ball Work Phone: OP-Qismyvhkww-Zmdaguf y 250 DO Work Phone: 06-13-2023 14:47-0400 Diastolic blood pressure 78 mm[Hg] Jairo E Ball Work Phone: PX-Zhjhvljryn-Osjjyyr y 250 DO Work Phone: 06-13-2023 14:47-0400 Heart rate 56 /min Jairo E Ball Work Phone: VY-Dzgqvgzjnx-Evuujhe y 250 DO Work Phone: 06-13-2023 14:47-0400 Systolic blood pressure 138 mm[Hg] Jairo E Ball Work Phone: GA-Ywkazjzoau-Xuttlmi y 250 DO Work Phone: 05-11-2023 15:00-0400 Body height 177.8 cm Jairo Ball Other [employer] Other 05-11-2023 15:00-0400 Body mass index (BMI) [Ratio] 29.84 kg/m2 Jairo Ball Other [employer] Other 05-11-2023 15:00-0400 Body weight 94.35 kg Jairo Ball Other [employer] Other 05-11-2023 15:00-0400 Diastolic blood pressure 74 mm[Hg] Jairo Ball Other [employer] Other 05-11-2023 15:00-0400 Systolic blood pressure 136 mm[Hg] Jairo Ball Other [employer] Other 04-15-2023 11:53-0400 Body height 177.8 cm Jairo E Ball Work Phone: [facility] 250 DO Work Phone: 04-15-2023 11:53-0400 Body mass index (BMI) [Ratio] 29.99 kg/m2 Jairo E Ball Work Phone: [facility] 250 DO Work Phone: 04-15-2023 11:53-0400 Body surface area Derived from formula 2.13 m2 Jairo E Ball Work Phone: [facility] 250 DO Work Phone: 04-15-2023 11:53-0400 Body weight 94.8 kg Jairo E Ball Work Phone: [facility] 250 DO Work Phone: 04-15-2023 11:53-0400 Diastolic blood pressure 72 mm[Hg] Jairo E Ball Work Phone: [facility] 250 DO Work Phone: 04-15-2023 11:53-0400 Heart rate 60 /min Jairo E Ball Work Phone: [facility] 250 DO Work Phone: 04-15-2023 11:53-0400 Systolic blood pressure 124 mm[Hg] Jairo E Ball Work Phone: [facility] 250 DO Work Phone: 03-02-2023 18:36-0400 Body temperature 98.6 [degF] DO Jairo Ball Work Phone: [facility] 03-02-2023 18:36-0400 Diastolic blood pressure 72 mm[Hg] DO Jairo Ball Work Phone: [facility] 03-02-2023 18:36-0400 Heart rate 74 /min DO Jairo Ball Work Phone: [facility] 03-02-2023 18:36-0400 Respiratory rate 18 /min DO Jairo Ball Work Phone: [facility] 03-02-2023 18:36-0400 SaO2% (BldA) [Mass fraction] 96 % DO Jairo Ball Work Phone: [facility] 03-02-2023 18:36-0400 Systolic blood pressure 120 mm[Hg] DO Jairo Ball Work Phone: [facility] 03-02-2023 12:17-0400 Body height 177.8 cm DO Jairo Ball Work Phone: [facility] 03-02-2023 12:17-0400 Body weight 87.4 kg DO Jairo Ball Work Phone: [facility] 03-01-2023 15:15-0400 Body height 177.8 cm Jairo Ball Other [facility] [employer] Other 03-01-2023 15:15-0400 Body mass index (BMI) [Ratio] 29.21 kg/m2 Jairo Ball Other [facility] [employer] Other 03-01-2023 15:15-0400 Body weight 92.35 kg Jairo Ball Other [facility] [employer] Other 03-01-2023 15:15-0400 Diastolic blood pressure 67 mm[Hg] Jairo Ball Other [facility] [employer] Other 03-01-2023 15:15-0400 Respiratory rate 12 /min Jairo Ball Other [facility] [employer] Other 03-01-2023 15:15-0400 Systolic blood pressure 106 mm[Hg] Jairo Ball Other [facility] [employer] Other 02-25-2023 12:01-0400 Diastolic blood pressure 74 mm[Hg] DO Jairo Ball Work Phone: [facility] 02-25-2023 12:01-0400 Heart rate 80 /min DO Jairo Ball Work Phone: [facility] 02-25-2023 12:01-0400 Systolic blood pressure 125 mm[Hg] DO Jairo Ball Work Phone: [facility] 05-26-2023 12:00-0400 Respiratory rate 16 /min DO Jairo Ball Work Phone: [facility] 02-25-2023 12:00-0400 SaO2% (BldA) [Mass fraction] 96 % DO Jairo Ball Work Phone: [facility] 02-25-2023 08:00-0400 Body temperature 97.7 [degF] DO Jairo Ball Work Phone: [facility] 02-25-2023 06:10-0400 Body weight 87.4 kg DO Jairo Ball Work Phone: [facility] 02-25-2023 06:07-0400 Inhaled oxygen flow rate 2 L/min DO Jairo Ball Work Phone: [facility] 02-24-2023 13:01-0400 Body height 177.8 cm DO Jairo Ball Work Phone: [facility] 02-08-2023 16:30-0400 Body height 177.8 cm Jairo Ball Other [facility] [employer] Other 02-08-2023 16:30-0400 Body mass index (BMI) [Ratio] 30.19 kg/m2 Jairo Ball Other [employer] Other 02-08-2023 16:30-0400 Body weight 95.44 kg Jairo Ball Other [employer] Other 02-08-2023 16:30-0400 Diastolic blood pressure 75 mm[Hg] Jairo Ball Other [employer] Other 02-08-2023 16:30-0400 Respiratory rate 12 /min Jairo Ball Other [employer] Other 02-08-2023 16:30-0400 Systolic blood pressure 126 mm[Hg] Jairo Ball Other [employer] Other 02-08-2023 15:30-0400 Body height 177.8 cm Jairo [employer] Other [employer] Other 02-08-2023 15:30-0400 Body mass index (BMI) [Ratio] 30.19 kg/m2 Jairo [employer] Other [employer] Other 02-08-2023 15:30-0400 Body weight 95.44 kg Jairo [employer] Other [employer] Other 02-08-2023 15:30-0400 Diastolic blood pressure 75 mm[Hg] [employer] Other [employer] Other 02-08-2023 15:30-0400 Respiratory rate 12 /min [employer] Other [employer] Other 02-08-2023 15:30-0400 Systolic blood pressure 126 mm[Hg] [employer] Other [employer] Other Encounters Encounter Date Encounter Type Care Provider Facility Start: 05-01-2024 End: 05-01-2024 ambulatory [facility] Work Phone: Start: 05-01-2024 End: 05-01-2024 Patient encounter procedure [facility] Work Phone: Start: 03-23-2024 Non-patient / Non-visit [facility] [employer] Work Phone: Start: 03-21-2024 End: 03-21-2024 ambulatory [facility] Start: 02-11-2024 End: 02-12-2024 ambulatory [facility] Start: 02-11-2024 End: 02-11-2024 Subsequent hospital visit by physician Ashli Fabian Echo/Vasc [facility] Comment on above: 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 con gestive 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, NYHA class 2 (Multi); Persistent atrial fibrillation (Multi); Non-ischemic cardiomyopathy (Multi) Start: 01-31-2024 End: 01-31-2024 ambulatory [facility] Work Phone: Start: 01-31-2024 End: 01-31-2024 Patient encounter procedure [facility] Work Phone: Start: 01-30-2024 Encounter for other preprocedural examination [facility] Start: 01-30-2024 End: 01-30-2024 Office outpatient visit 25 minutes Mary Neal MD Work Phone: [facility] Comment on above: 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 con gestive 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, NYHA class 2 (Multi); Persistent atrial fibrillation (Multi); Pre-operative examination; Former smoker; BMI 31.0-31.9,adult; Coronary artery disease involving [place] coronary artery of [place] heart without angina pectoris; Sinus bradycardia; Non-ischemic cardiomyopathy (Multi); Hypertension, benign Start: 01-30-2024 End: 01-30-2024 Preprocedural examination done Mary Neal MD Work Phone: [facility] Start: 01-30-2024 End: 01-30-2024 ambulatory [facility] Start: 01-30-2024 End: 01-30-2024 Encounter for other preprocedural examination [facility] Start: 11-10-2023 End: 11-10-2023 Office outpatient visit 25 minutes Mary Neal MD Work Phone: [facility] Comment on above: Hospital discharge f ollow-up; Persistent atrial fibrillation (CMS/HCC); senior care current use of 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 therapy; Non-ischemic cardiomyopathy (CMS/HCC); 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 congestive 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, NYHA class 2 (CMS/HCC); Coronary artery disease involving [place] coronary artery of [place] heart without angina pectoris; Hypertension, benign; Former smoker Start: 11-10-2023 End: 11-10-2023 ambulatory [facility] Start: 11-01-2023 End: 11-01-2023 Patient encounter procedure DO Jairo Corbin Work Phone: [facility]- Start: 10-26-2023 End: 10-26-2023 ambulatory Jairo Corbin Other [employer] Other Start: 10-26-2023 Telephone encounter Jairo Corbin BELEM [facility] Start: 10-21-2023 End: 10-24-2023 Evaluation and management of inpatient Jairo Corbin Facility:[facility] Start: 10-21-2023 Non-patient / Non-visit DO Armaan Corbin Work Phone: [facility] Med OutPt Work Phone: Start: 10-12-2023 Chart abstracting Scanning Pro vider External [facility] Start: 09-29-2023 End: 09-29-2023 Office outpatient visit 25 minutes Mary Neal MD Work Phone: [facility] Comment on above: Persistent atrial fi brillation (CMS/HCC); Paroxysmal atrial fibrillation (CMS/HCC); Non-ischemic cardiomyopathy (CMS/HCC); 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 congestive 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, NYHA class 2 (CMS/HCC); Coronary artery disease involving [place] coronary artery of [place] heart without angina pectoris; SOB (shortness of breath); Hypertension, benign; senior care current use of 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 therapy; Obstructive sleep apnea syndrome; Former smoker; Obesity (BMI 30.0-34.9); Personal history of COVID-19; Dilated cardiomyopathy (CMS/HCC); Medication course changed Start: 09-29-2023 End: 09-29-2023 ambulatory [facility] Ambulatory Start: 09-13-2023 Office outpatient vi sit 25 minutes Jairo Corbin ALLYSON [facility] Start: 09-13-2023 End: 09-13-2023 ambulatory DO Jairo Corbin Work Phone: [employer] Other Start: 09-13-2023 End: 09-13-2023 Departed Referred DO Jairo Corbin Work Phone: [facility] [place] Start: 09-13-2023 End: 09-13-2023 Patient encounter procedure DO Jairo Corbin Work Phone: [facility] Work Phone: Start: 09-10-2023 End: 09-10-2023 ambulatory Jairo Corbin Other [employer] Other Start: 09-10-2023 Telephone encounter Jairo Corbin FP [facility] Start: 09-07-2023 End: 09-07-2023 ambulatory Jairo Corbin Other [employer] Other Start: 09-07-2023 Telephone encounter Jairo PATRICIA [facility] Start: 09-05-2023 End: 09-05-2023 ambulatory [facility] Ambulatory Start: 09-05-2023 End: 09-05-2023 Office outpatient visit 25 minutes Karlo [facility] POULTRY SCIENTIST-TOPPER PRESS OPERATOR Work Phone: [facility] Comment on above: Dilated cardiomyopat hy (CMS/HCC) (Primary Dx); Paroxysmal atrial fibrillation (CMS/HCC); Hypertension, benign; Obstructive sleep apnea syndrome; Class 1 obesity due to excess calories with serious comorbidity and body mass index (BMI) of 30.0 to 30.9 in adult; senior care current use of 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 therapy Start: 09-01-2023 End: 09-01-2023 ambulatory Jairo Wild Facility:[facility] Start: 09-01-2023 End: 09-01-2023 ambulatory DO Jairo Corbin Work Phone: [facility] Work Phone: Start: 09-01-2023 End: 09-01-2023 Patient encounter procedure DO Jairo Corbin Work Phone: [facility] [employer] Work Phone: Start: 08-24-2023 End: 08-25-2023 ambulatory [facility] Start: 07-22-2023 End: 08-19-2023 ambulatory [facility] Ambulatory Start: 06-16-2023 End: 06-16-2023 ambulatory Jairo Corbin Other [facility] [employer] Other Start: 06-16-2023 Telephone encounter [facility] Start: 06-13-[address] Jairo Corbin Facility:[id number] Start: 06-13-2023 Office outpatient vi sit 15 minutes Jairo Corbin Work Phone: [facility] 600 DO Work Phone: Start: 06-13-2023 Patient encounter procedure Jairo Corbin Work Phone: [facility]J-Rfnqqnrzsh-Ccxjjsgk 250 DO Work Phone: Start: 05-12-2023 Chart Update Jairo julian Work Phone: [facility]-[place] 250 DO Work Phone: Start: 05-11-2023 End: 05-11-2023 ambulatory Jairo Corbin Other [facility] [employer] Other Start: 05-11-2023 Office outpatient vi sit 25 minutes Jairo VALADEZ [facility] Start: 05-05-[address] Jairo Corbin Facility:[id number] Start: 04-20-2023 Image Encounter Jairo julian Work Phone: [facility] 250 DO Work Phone: Start: 04-15-2023 Telephone encounter Jairo Roque [facility] Start: 04-15-2023 Office outpatient vi sit 40 minutes Jairo Corbin Work Phone: [facility] 250 DO Work Phone: Start: 04-15-2023 End: 04-15-[address] Jairo Corbin [facility] [employer] Other Start: 04-12-2023 End: 04-12-2023 ambulatory Jairo Corbin Other [facility] [employer] Other Start: 04-12-2023 Telephone encounter Jairo Roque [facility] Start: 03-22-2023 Telephone encounter Jorge jiménez DO Work Phone: [facility] 250 DO Work Phone: Start: 03-06-2023 End: 03-06-2023 ambulatory Jairo Corbin Other [facility] [employer] Other Start: 03-06-2023 Telephone encounter Jairo PATRICIA [facility] Start: 03-02-2023 End: 03-02-2023 ambulatory Papo Lucio Facility:[facility] Start: 03-02-2023 Telephone encounter Jairo PATRICIA [facility] Start: 03-02-2023 End: 03-02-2023 Admission to same day surgery center DO Jairo Corbin Work Phone: [facility] Human Resources Manager Work Phone: Start: 03-02-2023 End: 03-02-2023 ambulatory DO Jairo Corbin Work Phone: [facility] Work Phone: Start: 03-02-[address] Jorge Lucio Facility:[id number] Start: 03-01-2023 Transitional care tanisha díaz srvc 14 day discharge Jairo Corbin [facility] Start: 03-01-2023 End: 03-02-[address] JAIRO CORBIN [facility] [employer] Other Start: 02-25-2023 Message Jorge mcadams DO Work Phone: [facility] 250 DO Work Phone: Start: 02-25-[address] Jairo Corbin Facil ity:[facility] Start: 02-25-[address] Jairo Corbin Facil ity:[id number] Start: 02-24-[address] Jario Corbin Facility:[id number] Start: 02-24-2023 End: 02-25-2023 Evaluation and management of inpatient Brad Livingston Facility:[facility] Start: 02-23-2023 End: 02-25-2023 Evaluation and management of inpatient DO Jairo Corbin Work Phone: [facility] Work Phone: Start: 02-19-2023 End: 02-20-[address] JAIRO CORBIN Facility:[id number] Start: 02-09-2023 End: 02-09-2023 ambulatory Jairo Corbin Other [employer] Other Start: 02-09-2023 Telephone encounter Jairo Corbin FP [facility] Start: 02-08-2023 End: 02-08-2023 ambulatory Jairo [place] Other [employer] Other Start: 02-08-2023 Patient encounter procedure Jairo Corbin [facility] Start: 02-01-2023 End: 02-01-2023 ambulatory Jairo Corbin Other [employer] Other Start: 02-01-2023 Telephone encounter Jairo Corbin FP [facility] Start: 12-15-2022 End: 12-15-2022 ambulatory Jairo [place]qu[place] Other [employer] Other Start: 12-15-2022 Office outpatient vi sit 15 minutes Jairo Corbin [facility] Start: 12-15-2022 Telephone encounter Jairo Corbin FP [facility] Start: 12-10-2022 End: 12-10-2022 ambulatory Jairo Corbin Other [employer] Other Start: 12-10-2022 Office outpatient vi sit 15 minutes Jairo Corbin [facility] Start: 11-27-2022 End: 11-27-2022 ambulatory Jairo Corbin Other [employer] Other Start: 11-27-2022 Telephone encounter Jairo [facility]qu[place] [facility] Start: 06-01-2022 End: 06-02-[address] JAIRO CORBIN Facility:H1 Procedures Date Procedure Procedure Detail Performing Clinician Start: 02-11-2024 TRANSTHORACIC ECHO ( TTE) COMPLETE MARY NEAL Start: 01-30-2024 ECG 12-LEAD KARLO Sifuentes [...] w/le ast 12 lds w/i&r Karlo Aldridge POULTRY SCIENTIST-TOPPER PRESS OPERATOR Work Phone: Start: 08-24-2023 NM HEART [...] Td Vaccines (2 - Td or Tdap) [facility] [email or web address] [facility] Start: 06-27-2025 DTaP/Tdap/Td Vaccines (2 - Td or Tdap) DTaP/Tdap/Td Vaccines (2 - Td or Tdap) [facility] Start: 10-21-2024 Echocardiography Echocardiogram [facility] Start: 06-03-2024 Influenza vaccination Influenza Vaccine (Season Ended) [facility] Start: 03-26-2024 End: 03-26-2024 Patient encounter procedure 03/26/2024 1:15 PM EDT Office Visit [place] [id number] [place] [address] Mary Neal MD [address] [place] [address] [facility] Start: 02-25-2024 Echocardiography Echocardiogram [facility] Start: 02-11-2024 End: 02-11-2024 Patient encounter procedure 02/11/2024 1:30 PM EDT Appointment [place] [address] [place] [address] [facility] Start: 02-02-2024 End: 02-02-2024 Patient encounter procedure 02/02/2024 12:30 PM EDT Office Visit [address] [place] [address] Mary Neal MD [address] [facility] [address] [place] [address] [facility] Start: 01-30-2024 End: 01-29-2026 [facility] Transthoracic Transthoracic Echo Complete Echocardiography Routine 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 congestive 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, NYHA class 2 (Multi) Persistent atrial fibrillation (Multi) Non-ischemic cardiomyopathy (Multi) Expected: 01/30/2024 (Approximate), Expires: 01/29/2026 [facility] Service Area Work Phone: Comment on above: Expected: 01/30/2024 (Approximate), Expi res: 01/29/2026 Start: 11-17-2023 End: 11-10-2024 Basic metabolic 2000 panel - Serum or Plasma Basic Metabolic Panel Lab Routine 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 congestive 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, NYHA class 2 (CMS/HCC) Persistent atrial fibrillation (CMS/HCC) Hypertension, benign Expected: 11/17/2023 (Approximate), Expires: 11/10/2024 [facility] Service Area Work Phone: Comment on above: Expected: 11/17/2023 (Approximate), Expi res: 11/10/2024 Start: 11-10-2023 End: 11-10-2023 Patient encounter procedure 11/10/2023 1:45 PM EST Office Visit [address] [place] [address] Mary Neal MD [address] [facility] [address] [place] [address] [facility] Start: 10-24-2023 End: 10-24-2023 [facility] Start: 10-23-2023 [facility] Start: 10-22-2023 Thiamine [Moles/volume] in Blood [facility] Start: 10-22-2023 [facility] Start: 10-21-2023 Hospital admission [facility] Start: 10-21-2023 Referral to social contact worker [facility] Start: 10-21-2023 [facility] Start: 10-19-2023 End: 10-19-2023 Patient encounter procedure 10/19/2023 9:00 AM EST Office Visit [facility] [address] [facility] [address] [place] [address] Ceci Fuller MD [address] [place] [address] [facility] Start: 09-29-2023 End: 09-29-2023 Patient encounter procedure 09/29/2023 1:45 PM EST Office Visit [address] [place] [address] Mary Neal MD [address] [facility] [address] [place] [address] [facility] Start: 09-15-2023 FERN, Provider: [facility] 01,[id number], Status: Pen, Time: 2:30 PM MUGA, Provider: CAREN HHVI NUCLEAR 01,[id number], Status: Pen, Time: 2:30 PM LQ-Jtvhriiwkw-Yvolx erick 250 DO Work Phone: Start: 09-15-2023 EKG, Provider: SARI SANTANA BUTADIENE COMPRESSOR OPERATOR 1,[id number], Status: Pen, Time: 2:15 PM EKG, Provider: SARI SANTANA BUTADIENE COMPRESSOR OPERATOR 1,[id number], Status: Pen, Time: 2:15 PM IR-Rhiasuprac-Cpdxb erick 250 DO Work Phone: Start: 09-13-2023 Nasal septoplasty OR Nasal Septoplasty/Poss Turbinates (Bilateral) [facility] Start: 07-21-2023 FUV, Provider: Jorge Lucio, Status: Pen, Time: 11:10 AM FUV, Provider: Jorge Lucio, Status: Pen, Time: 11:[address] [facility] 250 DO Work Phone: Start: 06-03-2023 COVID-19 Vaccine ( season) COVID-19 Vaccine ( season) [facility] Start: 06-03-2023 Influenza vaccination [facility] Start: 05-05-2023 MUGA, Provider: CAREN LALOI NUCLEAR 01,[id number], Status: Pen, Time: 2:30 PM MUGA, Provider: CAREN HHVI NUCLEAR 01,[id number], Status: Pen, Time: 2:30 PM -[facility] 250 DO Work Phone: Start: 04-15-2023 FUV, Provider: Jorge Lucio, Status: Pen, Time: 11:00 AM FUV, Provider: Jorge Lucio, Status: Pen, Time: 11:00 AM -[facility] 250 DO Work Phone: Start: 03-02-2023 [facility] Start: 02-25-2023 [facility] Start: 02-24-2023 Referral to social contact worker [facility] Start: 02-24-2023 Sleep disorder assessment [facility] Start: 02-23-2023 Hospital admission [facility] Start: 03-03-2022 Pneumococcal Vaccine: 65+ Years (3 - PPSV23 or PCV20) Pneumococcal Vaccine: 65+ Years (3 - PPSV23 or PCV20) [facility] Start: 03-03-2022 Pneumococcal Vaccine: 65+ Years (3 of 3 - PPSV23 or PCV20) Pneumococcal Vaccine: 65+ Years (3 of 3 - PPSV23 or PCV20) [facility] Start: 2019 Abdominal aortic aneurysm screening Abdominal Aortic Aneurysm (AAA) Screening [facility] Start: 2019 Fall Risk Screening Fall Risk Screening [facility] Start: 2014 RSV patients and/or patients aged 60+ years (1 - 1-dose 60+ series) RSV patients and/or patients aged 60+ years (1 - 1-dose 60+ series) [facility] Start: 10-05-2013 Administration of varicella zoster vaccine Zoster (Shingles) Vaccine (2 of 3) [facility] Start: 10-05-2013 Zoster Vaccines (2 of 3) Zoster Vaccines (2 of 3) [facility] Start: 1972 Adult BMI Screening Adult BMI Screening [facility] Start: 1972 Diabetes mellitus screening Diabetes Screening [facility] Start: 1972 Hepatitis C screening Hepatitis C Screening [facility] Start: 1966 Depression Screening Depression Screening [facility] Start: 1966 Tobacco Screening Tobacco Screening [facility] Start: 1954 COVID-19 Vaccine (#1) COVID-19 Vaccine (#1) [facility] Start: 1954 Creatinine measurement Creatinine Level [facility] Start: 1954 Lipid panel Lipid Panel [facility] Start: 1954 Medicare Annual Wellness Visit [facility] Start: 1954 Potassium measurement Potassium Level [facility] Start: 1954 Screening for malignant neoplasm of colon [facility] Comprehensive metabo lic 2000 panel - Serum or Plasma [facility] ECG 12 Lead ECG 12 Lead ECG Routine Paroxysmal atrial fibrillation (CMS/HCC) 09/07/2023 10:29 AM EST [facility] Service Area Work Phone: Patient Education Carvedilol Alex fenton Nitroglycerin Spironolactone [facility] Work Phone: Patient referral [facility] Work Phone: End: 02-11-2024 US Heart Transthoracic [facility] Service Area Work Phone: Comment on above: Once for 1 Occurrences starting 02/11/20 24 until 02/11/2024 [facility] Immunizations Immunization Date Immunization Notes Care Provider Neha cervantes 07-06-2019 Seasonal trivalent influenza vaccine, adjuvanted, preservative free Jorge Lucio DO Work Phone: [facility] Chef Surfing DO Work Phone: 07-06-2019 influenza virus vaccine, unspecified formulation Karlo Aldridge POULTRY SCIENTIST-TOPPER PRESS OPERATOR Work Phone: [facility] Work Phone: 08-09-2018 influenza, live, intranasal, quadrivalent Jorge [facility] DO [facility] Work Phone: 09-01-2017 influenza, seasonal, injectable, preservative free Jorge [facility] DO Work Phone: [facility] Work Phone: 03-03-2017 pneumococcal polysaccharide vaccine, 23 valent Jairo Corbin Other [employer] Other 06-27-2015 influenza, seasonal, injectable, preservative free Jorge Lucio DO Work Phone: [facility] Work Phone: 06-27-2015 pneumococcal conjuga te vaccine, 13 valent Jorge Lucio DO Work Phone: [facility] Work Phone: 06-27-2015 tetanus toxoid, redu parth diphtheria toxoid, and acellular pertussis vaccine, adsorbed Jorge Lucio DO Work Phone[facility] Work Phone: 08-10-2013 zoster vaccine, live Jorge Lucio DO Work Phone: [facility] 250 DO Work Phone: 08-10-2013 zoster vaccine, unspecified formulation [facility] 08-08-2013 influenza, seasonal, injectable Jorge Lucio DO Work Phone: [facility] 250 DO Work Phone: 01-21-2009 hepatitis A and hepatitis B vaccine Jorge Lucio DO Work Phone: [facility] 05-21-2008 hepatitis A and hepatitis B vaccine Jorge Lucio DO Work Phone: [facility] 04-03-2008 hepatitis A and hepatitis B vaccine Jorge Lucio DO Work Phone: [facility] Payers Date Payer Category Payer Self-pay [id number] 2020 Unknown [id number] 2020 Unknown [id number] 2020 Medicare MEDICARE MEDICAR E PART A AND B [id number] 2020-Present [address] [place] [address] [id number] 1959 Medicare [id number] [id number] 1959 Unknown [id number] 2.16.840.1.251131.19 1954 Unknown [id number] 2.16.840.1.268985.3.579.2.59 3 1954 Unknown [id number] 2.16.840.1.072603.3.579.2.59 3 1954 Unknown [id number] 2.16.840.1.463613.3.579.2.59 3 1954 Unknown [id number] 2.16.840.1.995394.3.579.2.10 68 1954 Unknown [id number] 2.16.840.1.989448.3.579.2.35 6 1954 Unknown [id number] 2.16.840.1.701723.3.579.2.35 6 1954 Unknown [id number] 2.16.840.1.012381.3.579.2.35 6 1954 Unknown [id number] 2.16.840.1.051236.3.579.2.35 6 1954 Unknown [id number] 2.16.840.1.199119.3.579.2.35 6 1954 Unknown [id number] 2.16.840.1.384919.3.579.2.12 46 1954 Unknown [id number] 2.16.840.1.639494.3.579.2.12 46 1954 Unknown [id number] 2.16.840.1.542923.3.579.2.12 46 1954 Unknown [id number] 2.16.840.1.794663.3.579.2.12 46 1954 Unknown [id number] 2.16.840.1.027096.3.579.2.12 46 1954 Unknown [id number] 2.16.840.1.225361.3.579.2.12 44 1954 Unknown [id number] 2.16.840.1.817636.3.579.2.12 44 1954 Unknown [id number] 2.16.840.1.440264.3.579.2.12 44 1954 Unknown [id number] 2.16.840.1.389290.3.579.2.12 44 1954 Unknown [id number] 2.16.840.1.062173.3.579.2.12 44 1954 Unknown [id number] 2.16.840.1.578920.3.579.2.12 44 Unknown [facility] [id number] Unknown [id number] 2.16.840.1.120537.3.579.2.53 1 Unknown [id number] 2.16.840.1.309362.3.579.2.53 1 Unknown [id number] 2.16.840.1.709677.3.579.2.53 1 Unknown [id number] 2.16.840.1.935638.3.579.2.53 1 Unknown [id number] 2.16.840.1.727788.3.579.2.53 1 Social History Date Type Detail Facility Start: 09-05-2023 End: 01-30-2024 Sex Assigned At [employer] Other Start: 03-02-2023 End: 01-30-2024 Tobacco smoking status NDIS Ex-smoker (finding) [facility] Start: 1955 Sex Assigned At Male [facility] Start: 09-05-2023 End: 01-30-2024 Alcohol ingestion Alcohol ingestion -[facility] 250 DO Work Phone: Comment on above: 10oz wine daily; coffee 1 mug daily; quit 2007; Start: 11-01-2023 End: 11-01-2023 History of tobacco use Current smoker [facility] Work Phone: End: 10-03-1999 History of tobacco use Cigarette Smoker [facility] Work Phone: Start: 09-05-2023 End: 01-30-2024 Tobacco use and exposure Smokeless tobacco non-user [facility] Work Phone: Start: 09-05-2023 End: 01-30-2024 Alcohol intake Current drinker of alcohol (finding) [facility] Work Phone: Start: 1955 Sex Assigned At Not on file [facility] Work Phone: Start: 08-26-2023 End: 02-11-2024 Exposure to SARS-CoV-2 (event) Not sure [facility] Tobacco smoking stat [facility] Tobacco smoking consumption unknown [facility] Housing Instability Unknown [facility] Start: 10-22-2023 Tobacco smoking stat [facility] Never smoked tobacco (finding) [facility] Goals Date Patient Goal Desired Activity /State Functional Status Date Assessment Result Facility 03-02-2023 Functional status Patient at Baseline [facility] Work Phone: 02-25-2023 Functional status Patient at Baseline [facility] Work Phone: 02-24-2023 Functional status Disability Sta tus Patient at Baseline [facility] Work Phone: Mental Status Date Assessment Result Facility 03-02-2023 Cognitive function Cognitive Sta tus Patient at Baseline [facility] Work Phone: 02-25-2023 Cognitive function Cognitive Sta tus Patient at Baseline [facility] Work Phone: Clinical Notes 11-27-2022 to 01-30-2024 Mary Neal MD - 01/30/2024 2:00 PM EDTPatient Francesca Neal MD - 11/10/2023 1:45 PM ESTPatient Francesca Neal MD - 09/29/2023 1:45 PM ESTPatient [...] 2023 class IV January 2023 presented to [facility] Cardiac cath: LVEF 20% LVEDP was [...] being measured enrolled in Coumadin clinic at [place]. Most recent INR 3.0, warfarin dose will [...] healthy lifestyle choices on overall cardiovascular health. 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 zinc acetate 25 mg (zinc) capsule 1 capsule, oral, Daily Allergies Allergen Reactions Nsaids (Non-Steroidal Anti-Inflammatory Drug) Unknown Zyvfios-Xgw-Wex Reductase Inhibitors Unknown LABS: Reviewed PT and INR results CBC from October 2023. INR results have been labile. Patient Active Problem List Diagnosis Date Noted Pre-operative examination 01/30/2024 BMI 31.0-31.9,adult 01/30/2024 Sinus bradycardia 01/30/2024 Hospital discharge follow-up 11/10/2023 Personal history of COVID-19 09/29/2023 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 congestive 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, NYHA class 2 (Multi) 09/29/2023 Medication course changed 09/29/2023 senior care current use of 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 therapy 09/07/2023 Persistent [...] BMI 31.0-31.9,adult 6. Coronary artery disease involving [place] coronary artery of [place] heart without angina pectoris 7. Sinus bradycardia [...] Mary Neal MD. documented in this encounter [facility] Work Phone: 01-30-2024 Instructions Chioma Sewell [...] for dental procedure. documented in this encounter [facility] Work Phone: 11-10-2023 History of Present [...] 2023 class IV January 2023 presented to [facility] Cardiac cath: LVEF 20% LVEDP was [...] being measured enrolled in Coumadin clinic at [place]. Most recent INR 3.0, warfarin dose will [...] healthy lifestyle choices on overall cardiovascular health. senior care current use of 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 therapy CHADS VASc [...] redirect to the Timeline version of the REVFS SmartLink. Wt Readings from Last 3 Encounters: [...] 1 mg tablet Take as directed by [facility] warfarin (COUMADIN) 5 mg, oral, Every evening, Take as directed. zinc acetate 25 mg (zinc) capsule 1 capsule, oral, Daily Allergies Allergen Reactions Nsaids (Non-Steroidal Anti-Inflammatory Drug) Unknown Pijpsxa-Fgo-Yve Reductase Inhibitors Unknown LABS: Reviewed comprehensive profile and CBC pertaining to hospital stay. Patient Active Problem List Diagnosis Date Noted Hospital discharge follow-up 11/10/2023 Personal history of COVID-19 09/29/2023 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 congestive 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, NYHA class 2 (CMS/HCC) 09/29/2023 Medication course changed 09/29/2023 senior care current use of 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 therapy 09/07/2023 Persistent atrial fibrillation (CMS/HCC) 09/05/2023 CAD (coronary artery disease) 06/22/2023 Former smoker 06/22/2023 Hypertension, benign 06/22/2023 Non-ischemic cardiomyopathy (CMS/HCC) 06/22/2023 Obstructive sleep apnea syndrome 06/22/2023 SOB (shortness of breath) 06/22/2023 Assessment: 1. Hospital discharge follow-up 2. Persistent atrial fibrillation (CMS/HCC) 3. 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 Non-ischemic cardiomyopathy (CMS/HCC) Follow Up In Cardiology 5. 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 congestive 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, NYHA class 2 (CMS/HCC) Follow Up In Cardiology 6. Coronary artery disease involving [place] coronary artery of [place] heart without angina pectoris 7. Hypertension, benign 8. Former smoker 9. First-degree AV block Clinical discussion: Patient developed acute on chronic systolic left 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 and hypoxemic respiratory failure related to that, due to atrial fibrillation with rapid ventricular rate. Sustaining normal sinus rhythm and first-degree AV block AR interval today 226 ms Abnormal R wave [...] signing my name below, Monique Dorman LPN, Scribe attest that this documentation has been [...] discussion and plan. documented in this encounter [facility] Work Phone: 11-10-2023 Instructions Nunu Graves [...] in office today documented in this encounter [facility] Work Phone: 09-29-2023 History of Present illness Narrative Patient is new to this provider. Previously seen by Dr. Lucio subsequently by Karlo Aldridge. Accompanied by to the office. is very helpful in coordination of care. Hard of hearing, however I was able to communicate quite well. 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 Previously had some perceived medication [...] and PT/INR today with Coumadin clinic in [place]. Denies any bleeding diathesis. Subjective : Patient [...] Allergen Reactions Nsaids (Non-Steroidal Anti-Inflammatory Drug) Unknown Qpnzqlb-Ssw-Blk Reductase Inhibitors Unknown LABS: Sodium 137 potassium 4.1 creatinine 0.78 GFR greater than 60 glucose 133 hemoglobin 14.4 hematocrit 44 platelets 235 Problem List: Patient Active Problem List Diagnosis Date Noted senior care current use of 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 therapy 09/07/2023 Paroxysmal [...] 2023 class IV January 2023 presented to [facility] Cardiac cath: LVEF 20% LVEDP was [...] being measured enrolled in Coumadin clinic at [place]. Most recent INR 3.0, warfarin dose will [...] healthy lifestyle choices on overall cardiovascular health. 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 twice daily unable to increase dose [...] 2 (CMS/HCC) 5. Coronary artery disease involving [place] coronary artery of [place] heart without angina pectoris 6. SOB (shortness of breath) 7. Hypertension, benign 8. 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 Obstructive [...] By signing my name below, I, Katty Mckeon LPN , Marlo attest that this documentation has been prepared [...] exam, discussion and plan. Mary Neal MD [facility] documented in this encounter [facility] Work Phone: 09-29-2023 Instructions Katty Best [...] need weekly INR's for possible DCC, notify [place] [facility] documented in this encounter [facility] Work Phone: 09-13-2023 Evaluation note Encounter Date Diagnosis Assessment Notes Sep, Chronic HFrEF (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 with reduced ejection fraction) (ICD-10 - I50.22) [facility]: LVEF 20%, mild CAD - 01/2023 [...] are maintaining regular scheduled appts with their social contact worker. Discussed cardioversion following 4 wks of AC therapy to prevent thromboembolic events. Discussed repeat Echo/MUGA to assess LVEF Sep, JANETTE (obstructive sleep apnea) (ICD-10 - G47.33) AHI 39, Psat 83% This patient is aware of the benefits associated with JANETTE: With continued use, the patient reduces the risk for AL, CVA, HTN, cardiac dysrhythmias and sudden cardiac [...] index [BMI] 31.0-31.9, adult (ICD-10 - Z68.31) [employer] Other 12-09-2023 Evaluation note* Encounter Date Diagnosis Assessment Notes Treatment Notes Treatment Clinical Notes Sep, Lumbar spondylosis (ICD-10 - M47.816) [employer] Other 12-06-2023 Evaluation note* Encounter Date Diagnosis Assessment Notes Treatment Notes Treatment Clinical Notes Sep, Paroxysmal atrial fibrillation (ICD-10 - I48.0) [employer] Other 12-06-2023 Evaluation + Plan note* Assessment & Plan Note - FREDIS Flowers - 09/07/2023 9:51 AM ESTAssociated Problem(s): Obstructive sleep apnea syndrome Remains compliant with BiPAP [facility] Work Phone: [phone] 753-286212-06-2023 Miscellaneous Notes* Assessment & Plan Note - FREDIS Flowers - 09/07/2023 9:51 AM ESTAssociated Problem(s): Obstructive sleep apnea syndrome Remains compliant with BiPAP * Assessment & Plan Note - FREDIS Flowers - 09/07/2023 9:50 AM EST 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: Normal coronaries, LVEF 20% January 2023 TTE LVEF 40 to 45% with hypokinesis of inferior lateral and basal apical [facility]: [phone] 443-650912-06-2023 Evaluation + Plan note* Assessment & Plan Note - FREDIS Flowers - 09/07/2023 9:50 AM ESTAssociated Problem(s): senior care current use of 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 therapy CHADS VASc 3 After lengthy discussion regarding the importance of cardioembolic protection he agrees to begin treatment with Xarelto 20 mg daily. CRCL: 116 Provided with samples today and patient assistance forms [facility] Work Phone: [phone] Evaluation + Plan note* Assessment & Plan Note - FREDIS Flowers - 09/07/2023 9:47 AM ESTAssociated Problem(s): Class 1 obesity with body mass index (BMI) of 30.0 to 30.9 in adult Reviewed the merits of healthy lifestyle choices on overall cardiovascular health. [facility] Work Phone: [phone]) 791-524112-06-2023 Evaluation + Plan note* Assessment & Plan [...] in office today afib at 97 bpm [facility] Work Phone: [phone]) 616-958712-06-2023 Evaluation + Plan note* Assessment & Plan [...] April 2023 but reports intolerance Narrow QRS [facility] Work Phone: [phone]) 775-266612-06-2023 Evaluation + Plan note* Assessment & Plan Note - FREDIS Flowers - 09/07/2023 9:26 AM ESTAssociated Problem(s): Hypertension, benign optimal in office [facility] Work Phone: [phone] 454-213712-06-2023 Evaluation + Plan note* Assessment & Plan Note - FREDIS Flowers - 09/07/2023 9:26 AM ESTAssociated Problem(s): Cardiac and Vasculature January [address] [facility]: Normal coronaries, LVEF 20% January 2023 TTE LVEF 40 to 45% with hypokinesis of inferior lateral and basal apical [facility] Work Phone: [phone] 309-179012-04-2023 History of Present illness Narrative* FREDIS Flowers [...] Behavior: Behavior is cooperative. Allergies Allergen Reactions Lmilfad-Ghq-Gqa Reductase Inhibitors Unknown Current Outpatient Medications Medication [...] Cardiac and Vasculature January 2023 presented to [facility] Cardiac cath: Normal coronaries, LVEF 20% [...] healthy lifestyle choices on overall cardiovascular health. senior care current use of 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 therapy CHADS VASc [...] Neal may consider cardioversion) Karlo Aldridge MSN, POULTRY SCIENTIST-KELLIE, PMHNP-[facility] Please excuse any errors in grammar or translation related to this dictation. Voice recognition software was utilized to prepare this document. documented in this [facility] Work Phone: [phone] Instructions* Patient Instructions* FREDIS Flowers - 09/05/2023 [...] Neal in 3 weeks [facility]: [phone] Evaluation note* Encounter Date Diagnosis Assessment Notes Treatment Notes Treatment Clinical Notes May, ASHD (arteriosclerot ic heart disease) (ICD-10 - I25.10) This patient is stable without activity related CP, dyspnea or lightheadedness. They are instructed to continue exercise and AHA diet plan. May, Chronic HFrEF (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 with reduced ejection fraction) (ICD-10 - I50.22) [facility]: LVEF 20%, mild CAD - 01/2023 [...] use, the patient reduces the risk for AL, CVA, HTN, cardiac dysrhythmias and sudden cardiac [...] They may safely use Tylenol as needed. [employer] Other 07-14-2023 Evaluation note* Encounter Date Diagnosis Assessment Notes Treatment Notes Treatment Clinical Notes Apr, Chronic HFrEF (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 with reduced ejection fraction) (ICD-10 - I50.22) [facility]: LVEF 20%, mild CAD - 01/2023 [employer] Other 07-11-2023 Evaluation note* Encounter Date Diagnosis Assessment Notes Treatment Notes Treatment Clinical Notes Apr, JANETTE (obstructive sleep apnea) (ICD-10 - G47.33) AHI 39, Psat 83% [employer] Other 06-04-2023 Evaluation note* Encounter Date Diagnosis Assessment Notes Treatment Notes Treatment Clinical Notes Mar, Primary hypertension (ICD-10 - I10) Mar, Cervical spondylosis (ICD-10 - M47.812) [employer] Other 06-04-2023 Evaluation note* Encounter Date Diagnosis Assessment Notes Treatment Notes Treatment Clinical Notes Mar, Cervical spondylosis (ICD-10 - M47.812) [employer] Other 05-31-2023 Discharge summary Author Papo Lucio [facility] March 02, 2023 3:18pm Note Date/Time March 02, 2023 3:16p m [facility] [address] [place] [address] Discharge Summary Signed Patient: Vick Mercado MR#: [id number] : 1955 Acct:[id number] Age/Sex: 67 / M Adm Date: 3 [...] Low-Cholesterol Additional Instructions: DISCHARGE INSTRUCTIONS FOR CARDIAC FARM EQUIPMENT ENGINE MECHANIC PHONE NUMBER OF YOUR PHYSICIAN: [phone] PROCEDURE: Heart Cath The following instructions have [...] cold, numb, blue or white, call the social contact worker immediately. 4. ACTIVITY: You are advised to [...] bottle, follow the instructions on the bottle. [facility] is not responsible for incorrect prescription information [...] <Electronically signed by Papo Lucio DO> 03/02/231517 [facility] Work Phone: [phone]) [phone] [facility]-31-[facility] Evaluation note* Encounter Date Diagnosis Assessment Notes Treatment Notes Treatment Clinical Notes January, Nonischemic cardiomyopathy (ICD-10 - I42.8) January, Chronic HFrEF (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 with reduced ejection fraction) (ICD-10 - I50.22) [facility]: LVEF 20%, mild CAD - 01/2023 [employer] Other 05-30-2023 Evaluation note* Encounter Date Diagnosis [...] w/ beta blockers, MATT/ARB/ARNI, MRA and SGLT-2 January, JANETTE (obstructive sle ep apnea) (ICD-10 - G47.33) This patient is aware of the benefits associated with JANETTE: With continued use, the patient reduces the risk for AL, CVA, HTN, cardiac dysrhythmias and sudden cardiac [...] fever. Call if any of these develop [employer] Other 05-10-2023 Evaluation note* Encounter Date Diagnosis Assessment Notes Treatment Notes Treatment Clinical Notes January, Subacute maxillary sinusitis (ICD-10 - J01.00) [facility] [employer] Other 05-09-2023 Evaluation note* Encounter Date Diagnosis [...] use, the patient reduces the risk for AL, CVA, HTN, cardiac dysrhythmias and sudden cardiac [...] PSA (prostate specific antigen) (ICD-10 - Z12.5) [employer] Other 03-15-2023 Evaluation note* Encounter Date Diagnosis [...] for congestion, Tylenol for pain and fever. [employer] Other 03-10-2023 Evaluation note* Encounter Date Diagnosis Assessment Notes Treatment Notes Treatment Clinical Notes Dec, Acute bronchitis due to other specified organisms (ICD-10 - J20.8) Instructed to use Robitussin or Mucinex for cough, saline or Flonase NS for congestion, Tylenol for pain and fever. Dec, Tachycardia (ICD-10 - R00.0) Avoid stimulants, caffiene and sudafed/ Hydrate Recommend ER evaluation w/ sustained tachycardia [employer] [facility] [employer] Other 02-25-2023 Evaluation note* Encounter Date Diagnosis Assessment Notes Treatment Notes Treatment Clinical Notes Nov, Lumbar spondylosis (ICD-10 - M47.816) [employer] Other chief complaint+Reason for visit Narrative* Chief Complaint Deviated Septum, Sle ep Apnea New Referral sob Reason for Visit Acute on chronic sys tolic (congestive) 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 Atrial fibrillation with rapid ventricular response CHF (congestive 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) Cognitive decline Dental caries Hypertension Orthopnea Sleep apnea treated with nocturnal bilevel positive airway pressure (BPAP) [facility] Work Phone: Chiux complaint+Reason for visit Narrative* Chief Complaint Deviated Septum, Sle ep Apnea New Referral Deviated Septum, Sleep Apnea sob [facility] Reason for Visit CHF (congestive hear t failure) Dental caries Hypertension Sleep apnea treated with nocturnal bilevel positive airway pressure (BPAP) Acute on chronic systolic (congestive) 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 Atrial fibrillation with rapid ventricular response Orthopnea [facility] Work Phone: Evaluation noteNo InformationNortEncompass Health [facility] [employer] Other Evaluation note* Diagnosis Onset Date Resolution Status CHF (congestive 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) acute Dyspnea, paroxysmal nocturnal acute Orthopnea acute Sleep apnea treated with noc turnal bilevel positive airway pressure (BPAP) acute [facility] Work Phone: Evaluation noteNo assessment information available [facility] Work Phone: Evaluation note* Diagnosis Dilated cardiomyopathy (CMS/HCC)- Primary Other primary cardiomyopathies Paroxysmal atrial fibrillation (CMS/HCC) Atrial fibrillation Hypertension, benign Essential hypertension, benign Obstructive sleep apnea syndrome Obstructive sleep apnea (adult) (pediatric) Class 1 obesity due to excess calories with serious comorbidity and body mass index (BMI) of 30.0 to 30.9 in adult 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 documented in this encounter [facility] Work Phone: Evaluation note* Diagnosis Persistent atrial fibrillation (CMS/HCC) Atrial fibrillation Paroxysmal atrial fibrillation (CMS/HCC) Atrial fibrillation Non-ischemic cardiomyopathy (CMS/HCC) Other primary cardiomyopathies 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 congestive 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, NYHA class 2 (CMS/HCC) Coronary artery disease involving [place] coronary artery of [place] heart without angina pectoris SOB (shortness of breath) Shortness of breath Hypertension, benign Essential hypertension, benign senior care current use of 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 therapy Obstructive sleep apnea syndrome Obstructive sleep apnea (adult) (pediatric) Former smoker Personal history of tobacco use, presenting hazards to health Obesity (BMI 30.0-34.9) Personal history of COVID-19 Dilated cardiomyopathy (CMS/HCC) Other primary cardiomyopathies Medication course changed documented in this encounter [facility] Work Phone: Evaluation note* Diagnosis Onset Date Resolution Status Acute on chronic systolic (congestive) 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 acute Atrial fibrillation with rapid ventricular response acute CHF (congestive 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) acute Cognitive decline acute Dental caries acute Hypertension acute Orthopnea acute Sleep apnea treated with noc turnal bilevel positive airway pressure (BPAP) acute [facility] Work Phone: Evaluation note* Diagnosis Hospital discharge follow-up Other follow-up examination Persistent atrial fibrillation (CMS/HCC) Atrial fibrillation 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 Non-ischemic cardiomyopathy (CMS/HCC) Other primary cardiomyopathies 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 congestive 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, NYHA class 2 (CMS/HCC) Coronary artery disease involving [place] coronary artery of [place] heart without angina pectoris Hypertension, benign Essential hypertension, benign Former smoker Personal history of tobacco use, presenting hazards to health documented in this encounter [facility] Work Phone: Evaluation note* Diagnosis Onset Date Resolution Status CHF (congestive 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) acute Dental caries acute Hypertension acute Sleep apnea treated with noc turnal bilevel positive airway pressure (BPAP) acute Acute on chronic systolic (congestive) 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 resolved Atrial fibrillation with rapid ventricular response resolved Orthopnea resolved [facility] Work Phone: Evaluation note* Diagnosis 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 congestive 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, NYHA class 2 (Multi) Persistent atrial fibrillation (Multi) Atrial fibrillation Pre-operative examination Unspecified pre-operative examination Former smoker Personal history of tobacco use, presenting hazards to health BMI 31.0-31.9,adult Coronary artery disease involving [place] coronary artery of [place] heart without angina pectoris Sinus bradycardia Other specified cardiac dysrhythmias Non-ischemic cardiomyopathy (Multi) Other primary cardiomyopathies Hypertension, benign Essential hypertension, benign documented in this encounter [facility] Work Phone: Evaluation note* Diagnosis Onset Date Resolution Status ASHD (arteriosclerotic heart disease) acute Atrial fibrillation acute Chronic HFrEF (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 with reduced ejection fraction) acute Elevated cholesterol acute Hypertension acute Nonischemic cardiomyopathy a cute JANETTE (obstructive sleep apnea) acute [facility] Work Phone: Evaluation note* Diagnosis 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 congestive 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, NYHA class 2 (Multi) Persistent atrial fibrillation (Multi) Atrial fibrillation Non-ischemic cardiomyopathy (Multi) Other primary cardiomyopathies documented in this encounter [facility] Work Phone: Evaluation note* Diagnosis Onset Date Resolution Status Atrial fibrillation acute Elevated cholesterol acute HALEY (generalized anxiety disorder) acute Heart failure with improved ejection fraction (HFimpEF) acute Hypertension acute Nonischemic cardiomyopathy a cute JANETTE (obstructive sleep apnea) acute Medicare annual wellness visit, subsequent noneactive Screening PSA (prostate specific antigen) noneactive Screening for colon cancer n oneactive [facility] Work Phone: History general Narrative - Reported* Type Description Date Medical History fusion c4 5 6 7 Medical History ruptured liver/ hep c Medical History gall bladder Medical History kidney stones Surgical History rotator cuff repair Surgical History broken jaw Surgical History amputated fingers Hospitalization History see above [employer] Other Histhxr general Narrative - Reported* Type Description Date Medical History fusion c4 5 6 7 Medical History ruptured liver/ hep c Medical History gall bladder Medical History kidney stones Medical History Nonischemic Cardiomyopathy Medical History HFrEF Surgical History rotator cuff repair Surgical History broken jaw Surgical History amputated fingers Surgical History [facility] 01/2023 Hospitalization History see above [employer] Other Hiszwpb general Narrative - Reported* Type Description Date Medical History fusion c4 5 6 7 Medical History ruptured liver/ hep c Medical History gall bladder Medical History kidney stones Medical History Nonischemic Cardiomyopathy Medical History HFrEF Medical History JANETTE Surgical History rotator cuff repair Surgical History broken jaw Surgical History amputated fingers Surgical History [facility] 01/2023 Hospitalization History see above [employer] Other History general Narrative - Reported* Type Description Date Medical History fusion c4 5 6 7 Medical History ruptured liver/ hep c Medical History gall bladder Medical History kidney stones Medical History Nonischemic Cardiomyopathy Medical History HFrEF Medical History JANETTE Surgical History rotator cuff repair Surgical History broken jaw Surgical History amputated fingers Surgical History C 01/2023 Surgical History CHF 01/2023 Hospitalization History see above [employer] Other Hisngcs general Narrative - Reported* Type Description Date Medical History fusion c4 5 6 7 Medical History ruptured liver/ hep c Medical History gall bladder Medical History kidney stones Medical History Nonischemic Cardiomyopathy Medical History HFrEF Medical History JANETTE Medical History Atrial fibrillation Surgical History rotator cuff repair Surgical History broken jaw Surgical History amputated fingers Surgical History C 01/2023 Surgical History CHF 01/2023 Hospitalization History see above [employer] Other History of Present illness Narrative* The [...] medication regimen. He denies medication side effects. [facility]Itgrp[facility] 250 DO Work Phone: History of Present [...] medication regimen. He denies medication side effects. [facility] 600 DO Work Phone: Hospital Discharge instructions Additional Instructions DISCHARGE INSTRUCTIONS FOR CARDIAC FARM EQUIPMENT ENGINE MECHANIC PHONE NUMBER OF YOUR PHYSICIAN: [phone] PROCEDURE: Heart Cath The following instructions have [...] cold, numb, blue or white, call the social contact worker immediately. 4. ACTIVITY: You are advised to [...] bottle, follow the instructions on the bottle. [facility] is not responsible for incorrect prescription information provided by the patient during their visit. Do not stop your medications without consulting your health care provider. Please take the list with you to your next doctor's appointment.[facility] Work Phone: InstructionsNot on filedocumented in this encounter [facility] SystemReason for referral (narrative)* Consultation (Routine) - Authorized Specialty Diagnoses / Procedures Referred By Contac t Referred To Contact Cardiology Diagnoses Non-ischemic cardiomyopathy (CMS/HCC) 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 congestive 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, NYHA class 2 (CMS/HCC) Procedures Follow Up In Cardiology Mary Neal MD [address] [address] Mary Neal MD [address] [address] Referral ID Status Reason Start Date Expiration Date V isits Requested Visits Authorized [id number] Authorized 09/29/2023 09/28/2024 1 1 [facility] Work Phone: Reason for referral (narrative)* Consultation (Routine) - Authorized Specialty Diagnoses / Procedures Referred By Contac t Referred To Contact Cardiology Diagnoses 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 congestive 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, NYHA class 2 (CMS/HCC) Persistent atrial fibrillation (CMS/HCC) Procedures Follow Up In Cardiology Mary Neal MD [address] [address] Mary Neal MD [address] [address] Referral ID Status Reason Start Date Expiration Date V isits Requested Visits Authorized [id number] Authorized 11/10/2023 11/09/2024 1 1 [facility] Work Phone: Chief Complaint and Reason for [...] Hypertension Nonischemic cardiomyopathy JANETTE (obstructive sleep apnea) Chief Complaint 3 month follow up Reason for Visit Atrial fibrillation Elevated cholesterol HALEY (generalized anxiety disorder) Heart failure with improved ejection fraction (HFimpEF) Hypertension Nonischemic cardiomyopathy JANETTE (obstructive sleep apnea) Medicare annual wellness visit, subsequent Screening PSA (prostate specific antigen) Screening for colon cancer Family History Relationship Condition Age at Onset Recorded Date/T [...] Unknown Not Specified Unknown Malignant neoplasm Unknown Relationship Condition Age at Onset Recorded Date/T marielena father History of heart brad ve replacement with porcine valve Unknown Diabetes mellitus Unknown mother Multiple myeloma Unknown grandparent Myocardial infarction Unknown grandparent Leukemia Unknown father Diabetes mellitus Unknown mother Unknown Malignant neoplasm Unknown Advance Directives Advance Directive Response Recorded Date/ Time Advance [...] Referral Specialty Diagnoses / Procedures Referred By Contac t Referred To Contact Cardiology Diagnoses 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 congestive 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, NYHA class 2 (Multi) Persistent atrial fibrillation (Multi) Non-ischemic cardiomyopathy (Multi) Procedures Transthoracic Echo Complete AR ECHO TTHRC R-T 2D W/WOM-MODE COMPL SPEC&COLR D Mary Neal MD [address] [address] Referral ID Status Reason Start Date Expiration Date Visits Requested Visits Authorized [id number] Pending Review Perform Procedure 01/30/2024 01/29/2025 1 1 Specialty Diagnoses / Procedures Referred By Contac t Referred To Contact Cardiology Diagnoses Persistent atrial fibrillation (Multi) Procedures Follow Up In Cardiology Mary Neal MD [address] [address] Mary Neal MD [address] [place], [place] [address] [address] [address] Referral ID Status Reason Start Date Expiration Date V isits Requested Visits Authorized [id number] Authorized 01/30/2024 01/29/2025 1 1 Specialty Diagnoses / Procedures Referred By Contac t Referred To Contact Diagnoses Persistent atrial fibrillation (Multi) Procedures ECG 12 Lead Mary Neal MD [address] [place], [place] [address] [facility] [address] [place] [address] Referral ID Status Reason Start Date Expiration Date V isits Requested Visits Authorized [id number] Authorized 01/30/2024 01/29/2025 1 1 Specialty Diagnoses / Procedures Referred By Contac t Referred To Contact Diagnoses Paroxysmal atrial fibrillation (CMS/HCC) Procedures ECG 12 Lead Karlo Aldridge, POULTRY SCIENTIST-TOPPER PRESS OPERATOR [address] [facility] [address] [place] [address] Referral ID Status Reason Start Date Expiration Date V isits Requested Visits Authorized [id number] Pending Review 09/07/2023 09/06/2024 1 1 Specialty Diagnoses / Procedures Referred By Contac t Referred To Contact Cardiology Diagnoses Paroxysmal atrial fibrillation (CMS/HCC) Procedures Follow Up In Cardiology Karlo Aldridge, POULTRY SCIENTIST-TOPPER PRESS OPERATOR [address] [place] [address] Mary Neal MD [address] [place] [address] Referral ID Status Reason Start Date Expiration Date V isits Requested Visits Authorized [id number] Authorized 09/05/2023 09/04/2024 1 1 Additional Source Comments REASON FOR VISIT (unrecogniz ed section and content) Reason Comments Pre-op Clearance Dental Work 02/03 Specialty Diagnoses / Procedures Referred By Contac t Referred To Contact Cardiology Diagnoses 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 congestive 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, NYHA class 2 (Multi) Persistent atrial fibrillation (Multi) Procedures Follow Up In Cardiology Mary eNal MD [address] [place] [address] Mary Neal MD [address] [place] [address] Referral ID Status Reason Start Date Expiration Date V isits Requested Visits Authorized [id number] Authorized 11/10/2023 11/09/2024 1 1 Reason Comments Follow-[place] 6 [place] [facility] [place] [place] [facility] Specialty Diagnoses / Procedures Referred By Contac t Referred To Contact Cardiology Diagnoses Non-ischemic cardiomyopathy (CMS/HCC) 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 congestive 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, NYHA class 2 (CMS/HCC) Procedures Follow Up In Cardiology Mary Neal MD [address] [place] [address] Mary Neal MD 254 [facility] [address] [place] [address] Referral ID Status Reason Start Date Expiration Date V isits Requested Visits Authorized [id number] Authorized 09/29/2023 09/28/2024 1 1 TCM Reason Comments Follow-up 2wk Specialty Diagnoses / Procedures Referred By Contac t Referred To Contact Cardiology Diagnoses Paroxysmal atrial fibrillation (CMS/HCC) Procedures Follow Up In Cardiology Karlo Aldridge APRN-TOPPER PRESS OPERATOR [address] [facility] [address], [address] [place] [address] Mary Neal MD 254 [facility] [address] [place] [address] Referral ID Status Reason Start Date Expiration Date V isits Requested Visits Authorized [id number] Authorized 09/05/2023 09/04/2024 1 1 new referral Reason Comments Pre-op Clearance Follow-up Test results 3 month Follow upWellnessFRMCsinusesEye Issues/ Swelling on [id number] COVID +COVIDSick- [phone] Care Teams (unrecognized sec tion and content) Team Status: Active Member Role Status Dates Jairo Corbin DO Primary Care Provider Active Team Status: Active Member Role Status Dates Jairo Corbin DO Primary Care Provider Active Start: March 23, 2024 Karlo Aldridge APRN Attending Provider Active S tart: March 23, 2024 Team Status: Inactive Member Role Status Dates Jairo Corbin DO Primary Care Provide r, Attending Provider Active Start: May 01, 2024 End: May 01, 2024 Team Status: Active Member Role Status Dates Jairo Corbin DO Primary Care Provider Active Team Status: Inactive Member Role Status Dates Jairo Corbin DO Primary Care Provider Active Shalom Germain , DO Emergency Provider Active Jair Harp MD Admit Provider Active Brad Livingston , DO Attending Provider Active Bing Chong RN Other Provider Active Papo Lucio , DO Other Provider Active Kings Banegas MD Other Provider Active Jorge Burger MD Other Provider Active John Pena MD Other Provider Active Dano Anderson MD Other Provider Active Karlo Aldridge APRN Other Provider Active Mary Neal MD Other Provider Active Danny Teresa MD Other Provider Active Kerline Thompson MD Other Provider Active Sravani Spears , [facility] Other Provider Active Sparkle Joseph MD Other Provider Active Team Status: Inactive Member Role Status Dates Jairo Corbin , Primary Care Provider Active Papo Lucio , Attending Provider Active Team Status: Inactive Member Role Status Dates Jairo Corbin , DO Primary Care Provider Active Jairo Wild , Attending Provider Active Uniform Designer Relationship Specialty Start Date End Date Jairo Corbin DO [address] [place] [address] [place] [address] PCP - General Internal Medicine 08/23/23 Jairo Wild DO [address] [place] [address] Referring Physician Otolaryngology 09/05/23 Uniform Designer Relationship Specialty Start Date End Date Jairo Corbin, [address] [place] [address] [facility] [place] [address] PCP - General Internal Medicine 08/23/23 Jairo Wild DO [address] [place] [address] Referring Physician Otolaryngology 09/05/23 Team Status: Inactive [...] Other Provider Active Start: October 21, 2023 Uniform Designer Relationship Specialty [place] [address] [place] [address] [place] [address] PCP - General Internal Medicine 08/23/23 Jario Wild DO [address] [place] [address] Referring Physician Otolaryngology 09/05/23 Team Status: Inactive Member Role Status Dates Jairo Corbin DO Primary Care Provider Active Start: September 13, 2023 End: September 13, 2023 Jairo Wild DO Attending Provider Active S tart: September 13, 2023 End: September 13, 2023 Team Status: Inactive Member Role Status Dates Jairo Corbin DO Attending Provider Active Sta rt: November 01, 2023 End: November 01, 2023 Uniform Designer Relationship Specialty Start Date End Date Jairo Corbin DO [address] [place] [address] PCP - General Internal Medicine 01/30/24 Jairo Wild DO [address] [place] [address] Referring Physician Otolaryngology 09/05/23 Team Status: Inactive Member Role Status Dates Jairo Corbin DO Primary Care Provide r, Attending Provider Active Start: January 31, 2024 End: January 31, 2024 Uniform Designer Relationship Specialty Start Date End Date Jairo Corbin DO [address] [place] [address] PCP - General Internal Medicine 01/30/24 Jairo Wild DO [address] [place] [address] Referring Physician Otolaryngology 09/05/23 Team Status: Active Member Role Status Dates Jairo Corbin DO Primary Care Provider Active Start: March 23, 2024 Karlo Aldridge APRN Attending Provider Active S tart: March 23, 2024 Team Status: Inactive Member Role Status Dates Jairo Corbin DO Primary Care Provide r, Attending Provider Active Start: May 01, 2024 End: May 01, 2024 (unrecognized sect ion and content) No Status Records FoundNo Status Records FoundNo Status Records FoundNo Status Records FoundNo Status Records FoundNo Status Records FoundNo Status Records Found INFORMATION SOURCE (unrecogn ized section and content) DATE CREATED AUTHOR 03/14/2023 [facility] DATE CREATED AUTHOR AUTHOR'S ORGANIZ ATION 05/11/2023 [facility] DATE CREATED AUTHOR AUTHOR'S ORGANIZ ATION 06/18/2023 [employer] DATE CREATED AUTHOR AUTHOR'S ORGANIZ ATION 07/13/2023 [facility] DATE CREATED AUTHOR AUTHOR'S ORGANIZ ATION 01/14/2024 [facility] DATE CREATED AUTHOR AUTHOR'S ORGANIZ ATION 02/17/2024 [facility] DATE CREATED AUTHOR AUTHOR'S ORGANIZ ATION 03/23/2024 [facility] Ambulatory Goals (unrecognized section and content) Goals [...] BE BASED ON THE PRIMARY CLINICAL RECORDS. [facility] [employer] [facility]. provides no warranty or guarantee of the accuracy or completeness of information in this document."
[2024-05-10 09:47] LABS: Basophils Absolute Auto 0.1 10^3/uL (0.0-0.1); Basophils Percent Auto 0.8 % (0.2-2.0); Eosinophils Absolute Auto 0.3 10^3/uL (0.0-0.7); Eosinophils Percent Auto 3.3 % (0.9-7.0); Hematocrit 39.7 % (42.0-54.0); Hemoglobin 13.4 g/dL (14.0-18.0); Immature Granulocytes Abs Auto 0.07 10^3/uL (0.00-0.03); Immature Granulocytes Pct Auto 0.7 % (0.0-0.5); Lymphocytes Absolute Auto 2.5 10^3/uL (1.2-3.8); Lymphocytes Percent Auto 25.5 % (20.5-60.0); Mean Corpuscular HGB Conc 33.8 g/dL (29.9-35.2); Mean Corpuscular Hemoglobin 31.6 pg (25.9-34.0); Mean Corpuscular Volume 93.6 fL (80.0-94.0); Mean Platelet Volume 9.5 fL (9.5-13.5); Monocytes Absolute Auto 0.9 10^3/uL (0.3-0.8); Monocytes Percent Auto 9.6 % (1.7-12.0); Neutrophils Absolute Auto 5.9 10^3/uL (1.4-6.5); Neutrophils Percent Auto 60.1 % (43.0-75.0); Platelet Count 206 10^3/uL (150-450); Red Blood Count 4.24 10^6/uL (4.70-6.10); Red Cell Distribution Width 12.1 % (11.0-15.0); White Blood Count 9.8 10^3/uL (4.0-11.0)
[2024-05-10 10:53] LABS: Alanine Aminotransferase 44 U/L (16-63); Albumin Globulin Ratio 1.1; Albumin Level 3.8 g/dL (3.4-5.0); Alkaline Phosphatase 53 U/L (46-116); Anion Gap 12.4; Aspartate Amino Transferase 28 U/L (15-37); BUN Creatinine Ratio 16.3; Bilirubin Total 0.4 mg/dL (0.2-1.0); Calcium 8.9 mg/dL (8.5-10.1); Carbon Dioxide 28.9 mmol/L (21.0-32.0); Chloride 99 mmol/L (98-107); Chol HDL Ratio 7.7; Cholesterol 306 mg/dL (<=200); Estimated GFR (African America >60 (>=60); Estimated GFR (Non-African Ame >60 (>=60); Globulin 3.6 g/dL; Glucose 154 mg/dL (74-106); HDL Cholesterol 40 mg/dL (40-60); Potassium 4.3 mmol/L (3.5-5.1); Sodium 136 mmol/L (136-145); Total Protein 7.4 g/dL (6.4-8.2); Triglycerides 439 mg/dL (<=150); VLDL CHOLESTEROL 87.8 mg/dL
[2024-05-10 11:03] LABS: Prostate Specific Antigen Scrn 2.47 ng/mL (<=4.00)
[2024-05-11 14:35] LABS: LDL Cholesterol Direct 180 mg/dL
== END 2024-05-10 09:26 | disposition home or self-care (01) ==
LOC: LAB 09:25
PROVIDERS: PCP Internal Medicine; Visit Provider Internal Medicine
DX: E78.00 Pure hypercholesterolemia, unspecified (principal); I48.91 Unspecified atrial fibrillation; I50.32 Chronic diastolic (congestive) 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; Z12.5 Encounter for screening for malignant neoplasm of prostate; I11.0 Hypertensive heart disease with 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
CPT/HCPCS: 36415; 80053; 80061; 83721; 85025; G0103

== ENCOUNTER 2024-06-04 00:49 | Outpatient (RCR) | payer MEDICARE, OTHER, SELFPAY | END 2024-07-02 23:50 | disposition home or self-care (01) | LOC: MM 00:49 | PROVIDERS: Visit Provider Internal Medicine | DX: Z51.81 Encounter for therapeutic drug level monitoring (principal); Z79.01 Long term (current) use of 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s; I48.91 Unspecified atrial fibrillation | CPT/HCPCS: 85610; G0463 ==

== ENCOUNTER 2024-07-03 01:21 | Outpatient (RCR) | payer MEDICARE, OTHER, SELFPAY | END 2024-08-02 23:28 | disposition home or self-care (01) | LOC: MM 01:21 | PROVIDERS: Visit Provider Internal Medicine | DX: Z51.81 Encounter for therapeutic drug level monitoring (principal); Z79.01 Long term (current) use of 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s; I48.91 Unspecified atrial fibrillation ==

== ENCOUNTER 2024-08-03 10:21 | Outpatient (RCR) | payer MEDICARE, OTHER, SELFPAY | END 2024-09-01 23:59 | disposition home or self-care (01) | LOC: MM 10:21 | PROVIDERS: Visit Provider Internal Medicine | DX: Z51.81 Encounter for therapeutic drug level monitoring (principal); Z79.01 Long term (current) use of 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s; I48.91 Unspecified atrial fibrillation ==

== ENCOUNTER 2024-09-02 10:37 | Outpatient (RCR) | payer MEDICARE, OTHER, SELFPAY | END 2024-10-02 09:56 | disposition home or self-care (01) | LOC: MM 10:37 | PROVIDERS: Visit Provider Internal Medicine | DX: Z51.81 Encounter for therapeutic drug level monitoring (principal); Z79.01 Long term (current) use of 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s; I48.91 Unspecified atrial fibrillation ==

== ENCOUNTER 2024-10-04 00:14 | Outpatient (RCR) | payer MEDICARE, OTHER, SELFPAY | END 2024-11-02 15:03 | disposition home or self-care (01) | LOC: MM 00:14 | PROVIDERS: Visit Provider Internal Medicine | DX: Z51.81 Encounter for therapeutic drug level monitoring (principal); Z79.01 Long term (current) use of 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s; I48.91 Unspecified atrial fibrillation ==

== ENCOUNTER 2024-11-05 00:47 | Outpatient (RCR) | payer MEDICARE, OTHER, SELFPAY | END 2024-11-30 10:37 | disposition home or self-care (01) | LOC: MM 00:47 | PROVIDERS: Visit Provider Internal Medicine | DX: Z51.81 Encounter for therapeutic drug level monitoring (principal); Z79.01 Long term (current) use of 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s; I48.91 Unspecified atrial fibrillation ==

== ENCOUNTER 2024-12-01 07:19 | Outpatient (RCR) | payer MEDICARE, OTHER, SELFPAY | END 2024-12-28 10:09 | disposition home or self-care (01) | LOC: MM 07:19 | PROVIDERS: Visit Provider Internal Medicine | DX: Z51.81 Encounter for therapeutic drug level monitoring (principal); Z79.01 Long term (current) use of 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s; I48.91 Unspecified atrial fibrillation ==

== ENCOUNTER 2024-12-24 16:46 | Emergency (ER) | payer MEDICARE, OTHER, SELFPAY ==
[2024-12-24] VITALS (29 sets, daily range): BP systolic 148–181; BP diastolic 89–97; PULSE 79–103; TEMP 36.8; O2SAT 95–97; BMI 32.3
--- NOTE | 2024-12-24 17:12 | ECG_ITS ---
[facility] Test Date: 2024-12-24 Pat Name: VICK MERCADO Department: Room: - Gender: Male [employer]: : 1955 Requested By: [id number] Order Number: [id number] Reading MD: KENDRA TIERNEY M.D. Measurements Intervals [place] Rate: 88 P: 48 PA: 182 QRS: 43 QRSD: 110 T: -6 QT: 390 QTc: 435 Interpretive Statements 1100 Sinus rhythm 1570 with occasional ventricular premature complexes Nonspecific T wave changes Abnormal ECG Compared to ECG 04/26/2019 10:16:04 Ventricular premature complex(es) now present Left-axis deviation no longer present Nonspecific T wave changes are now present Electronically Signed On 12-24-2024 19:47:11 EDT by KENDRA TIERNEY M.D.
--- OUTSIDE RECORDS SUMMARY | 2024-12-24 17:13 | XMS_ITS | CCD ---
Author Organization [facility] Care Team Providers Care Family Independence Case Manager Name Role Phone Jairo Corbin Unavailable DO Jairo Corbin Primary Care Provider DO Shalom Azar Emergency Provider [facility] MD Jair Fuller Admit Provider DO Brad Livingston Attending Provider [phone] KRISTEN Chong Other Provider Unavailable DO Papo Lucio Other Provider MD Kings Banegas Other Provider MD Jorge Burger Other Provider MD John Pena Other Provider MD Dano Anderson Other Provider DIANA Ken Other Provider MD Mary Neal Other Provider MD Danny Teresa Other Provider MD Kerline Thompson Other Provider Tory [facility] Srvaani Julian Other Provider MD Sparkle Joseph Other Provider DO Papo Lucio Attending Provider [phone] JAIRO CORBIN Admitting Unavailable SHAQUILLE, DR BARRETT Attending Unavailable SHAQUILLE, DR BARRETT Consulting Unavailable SHAQUILLE, DR BARRETT Primary Care Unavailable UNLU, ZARIA Consulting Unavailable SHAQUILLE, DR BARRETT Attending Unavailable BALL, DR BARRETT Consulting Unavailable SHAQUILLE, DR BARRETT Primary Care Unavailable BALL, DR BARRETT Admitting Unavailable WEST, DR IVÁN Carter Consulting Unavailable SHAQUILLE, DR BARRETT Attending Unavailable SHAQUILLE, DR BARRETT Consulting Unavailable BALL, DR BARRETT Primary Care Unavailable BALL, DR BARRETT Admitting Unavailable WEST, DR IVÁN Carter Consulting Unavailable Jairo Corbin E Unavailable Unavailable Unavailable Shaquille, Dr. Jairo Lo Primary Care Alli Lucio, Dr. Jorge Crystal Referring Unava ilable Naveed, Dr. Jorge Crystal Attending Unava ilable Shaquille, Dr. Jairo Lo Primary Care Dinavai sabiha Corbin, Dr. Jairo Lo Primary Care Alli Aldridge, MsBrandon Chandler Referring Unavai sabiha Aldridge, MsBrandon Chandler Attending Unavai sabiha Corbin, Dr. Jairo oL Primary Care Dinavamaria m Lucio, Dr. Jorge Crystal Referring Unava ilable Naveed, Dr. Jorge Crystal Attending Unava ilable Naveed, Dr. Jorge Crystal Attending Unava ilable DO Jairo Corbin Primary Care Provider DO Jairo Wild Attending Provider [phone] Jairo Corbin DO Primary Care Provider Jairo Wild DO Unavailable [phone] Jairo Corbin DO Primary Care Provider Jairo Corbin DO Primary Care Provider MARY NEAL Referring Unavailable JAIRO CORBIN Primary Care Unavailable RAMSEY KARLO K Referring Unavailable JAIRO CORBIN Primary Care Unavailable ALDRIDGE, KARLO K Referring Unavailable BALL, JAIRO Soliman Primary Care Unavailable ALDRIDGE, KARLO K Referring Unavailable SHAQUILLE, JAIRO Soliman Primary Care Unavailable Shaquille, DO Jairo Primary Care Provider [phone] MD Praveen Song Attending Provider Jairo Corbin MD Primary Care Provider Praveen Song Admitting Unavailable Praveen Song Attending Unavailable Jairo Corbin Primary Care Unavailable Mary Neal Attending Unavailable Jairo Corbin Primary Care Unavailable Mary Neal Admitting Unavailable Bing Chong Consulting Unavailable Lindbloom, Bon Admitting Unavailabl e Mileym, Bon Attending Unavailabl e Ball, Jairo Primary Care Unavailable Papo Lucio Consulting Unavailable Kings Banegas Consulting Unavailable Jorge Burger Consulting Unavail able John Pena Consulting Unavailable Justin, Dano Consulting Unavailab ramona Aldridge, Karlo Travis Consulting Unavailable Mary Neal Consulting Unavailable Danny Teresa Consulting Unavailab Kerline Oliver Consulting Unavailable Sravani Spears Consulting Unavailable Fidone, Sparkle Linares Consulting Unavailable Unavailable Primary Care Provider Unavailabl e NEAL, MARY Attending Unavailable NEAL, MARY Referring Unavailable BALL, JAIRO E Primary Care Unavailable KARLO ALDRIDGE Attending Unavailable NEAL, MARY Referring Unavailable BALL, JAIRO E Primary Care Unavailable NELA MARY Attending Unavailable KARLO ALDRIDGE Referring Unavailable BALL, JAIRO E Primary Care Unavailable NEAL, MARY Referring Unavailable BALL, JAIRO E Primary Care Unavailable NEAL MARY Attending Unavailable BALL, JAIRO E Primary Care Unavailable BLACKSTON, MAO T Attending Unavailable BALL, JAIRO E Referring Unavailable BLACKSTON, MAO T Attending Unavailable BALL, JAIRO E Referring Unavailable BLACKSTON, MAO T Attending Unavailable BALL, JAIRO E Referring Unavailable BRINK, EDWIN Attending Unavailable BALL, JAIRO E Referring Unavailable BRINK, EDWIN Attending Unavailable BALL, JAIRO E Referring Unavailable BLACKSTON, MAO T Attending Unavailable BALL, JAIRO E Referring Unavailable BRINK, EDWIN Attending Unavailable BALL, JAIRO E Referring Unavailable BRINK, EDWIN Attending Unavailable BALL, JAIRO E Referring Unavailable BLACKSTON, MAO T Attending Unavailable BALL, JAIRO E Referring Unavailable BRINK, EDWIN Attending Unavailable BALL, JAIRO E Referring Unavailable BRINK, EDWIN Attending Unavailable BALL, JAIRO E Referring Unavailable BLACKSTON, MAO T Attending Unavailable BALL, JAIRO E Referring Unavailable BRINK, EDWIN Attending Unavailable BALL, JAIRO E Referring Unavailable BLACKSTON, MAO T Attending Unavailable BALL, JAIRO E Referring Unavailable BRINK, EDWIN Attending Unavailable BALL, JAIRO E Referring Unavailable BRINK, EDWIN Attending Unavailable BALL, JAIRO E Referring Unavailable BLACKSTON, MAO T Attending Unavailable BALL, JAIRO E Referring Unavailable ALIA BACK Attending Unavailable BALL, JAIRO E Referring Unavailable BRINK, EDWIN Attending Unavailable BALL, JAIRO E Referring Unavailable BRINK, EDWIN Attending Unavailable BALL, JAIRO E Referring Unavailable Allergies Allergy Classification Reported Allergen(s) Allergy Type Date of Onset Reaction(s) Facility (20 sources) Corticosteroids [facility] adverse [facility] Other (9 sources) Hvvtorr-FRO-AeY Reductase Inhibitor; Translations: [Ohpochi-KJB-LqX Reductase Inhibitor] Propensity to adverse reactions 02-26-20 23 Hives, muscle aches [facility] (5 sources) Hmg-Coa Reductase Inhibitors (Statins); Translations: [Statins] Allergy to drug (finding) Other -[facility] [facility] DO Work Phone: (10 sources) HMG-CoA reductase inhibitor; Translations: [IIMEDXU-ESY-CGT REDUCTASE INHIBITORS] Drug Allergy 04-06-20 23 Unknown, Other (See Comments) [facility] (9 sources) Non-steroidal anti-inflammatory agent; Translations: [NSAIDS (NON-STEROIDAL ANTI-INFLAMMATORY DRUG)] Drug Intolerance 01-03-20 08 Unknown, Other (See Comments) [facility] (7 sources) Corticosteroids; Translations: [Corticosteroids (Glucocorticoids)] Allergy to substance 11-01-19 24 sensitivty [facility] (20 sources) HMG-CoA reductase inhibitor Drug Allergy 04-06-20 23 Unknown [facility] (20 sources) Other Propensity to adverse reactions 01-03-20 08 [facility] Work Phone: (2 sources) Spironolactone; Translations: [SPIRONOLACTONE] Drug Allergy 11-30-19 25 Other [facility] Work Phone: Medications Current Medications Medication Drug Class(es) Dates Sig (Normalized) Sig (Original) ALPRAZolam 0.5 mg oral tablet (20 sources) Benzodiazepine Start: 06-18-2024 take 0.5 mg by mouth three times daily Alprazolam Active 0.5 MG PO Three times daily 270 June 18, 2024 1:28pm Start: 12-07-2023 End: 01-31-2024 take 0.5 mg [...] daily February 23, 2023 12:00am Start: 12-15-2022 End: 06-18-2024 take 1-1.5 tablets by mouth twice daily as needed Alprazolam Discontinued 0.5 MG PO .COMPLEX January 31, 2024 3:49pm June 18, 2024 1:29pm 0.5 mg orally 1 - 1.5 tablets BID PRN; ALPRAZolam (Xana x) 0.5 MG tablet every 12 (twelve) hours. Active take 1 tablet by [facility] every eight hours Xanax 0.5 MG 1 tablet Orally Three times a day Active ascorbic acid 1000 mg oral tablet (20 [...] 21, 2023 5:11pm take 1 capsule by [facility] once daily ascorbic acid, vitamin C, 500 mg capsule Take 1 capsule by mouth once daily. Active take 2 tablets by [facility] every twenty-four hours Vitamin C 500 MG [...] 90 90 February 25, 2023 12:00am carvedilol 6.25 mg oral tablet (20 sources) alpha-Adrenergic Fannie, beta-Adrenergic Fannie Start: 02-27-2023 End: 07-30-2025 take 1 tablet by mouth twice daily carvedilol (Coreg) 12.5 mg tablet Indications: Hypertension, benign , 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 congestive 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, NYHA class 2 Take 1 tablet (12.5 mg) by mouth 2 times daily (morning and late afternoon). 180 tablet 3 07/30/2024 11/30/2024 Discontinued (Dose adjustment) Start: 02-25-2023 End: 11-30-2025 take 1 tablet by mouth twice daily carvedilol (Coreg) 6.25 mg tablet Indications: Non-ischemic cardiomyopathy (Multi) Take 1 tablet (6.25 mg) by mouth 2 times daily (morning and late afternoon). 180 tablet 3 11/30/2024 11/30/2025 Active cetirizine hydrochloride 10 mg oral tablet (17 sources) Histamine-1 Receptor Antagonist Start: 09-01-2023 take 10 mg by mouth at bedtime Cetirizine Active 10 MG PO Bedtime September 01, 2023 1:00am take 1 capsule by [facility] once daily at bedtime cetirizine (ZYRTEC) 10 mg capsule Take 1 capsule (10 mg) by mouth once daily at bedtime. Active doxycycline hyclate 100 mg oral capsule (7 sources) Tetracycline-class Drug Start: 12-10-2022 take 1 capsule by mouth twice daily Doxycycline Hyclate 100 MG 1 capsule Orally twice daily for 7 days Dec, Active Fish Oils (20 sources) gabapentin 100 mg oral capsule (7 sources) Anti-epileptic Agent Gabapentin 100 MG Orally Active losartan potassium 25 mg oral tablet (20 sources) Angiotensin 2 Receptor Fannie Start: 02-25-2023 End: 03-02-2023 take 1 tablet by mouth in the morning losartan (Cozaar) 25 MG tablet Take 25 mg by mouth in the morning. 02/25/2023 Active Magnesium Oxide (20 sources) Start: 01-31-2024 take 300 mg by mouth at bedtime Magnesium Oxide Active 300 MG PO Bedtime January 31, 2024 12:00am Start: 01-31-2024 take 300 mg by mouth once daily Magnesium Oxide Active 300 MG PO Daily January 31, 2024 12:00am Start: 02-25-2023 End: 01-31-2024 take 400 mg by mouth once daily Magnesium Oxide Discontinued 400 MG PO Daily February 25, 2023 12:00am January 31, 2024 8:43am magnesium oxide 300 mg magnesium tablet (4 sources) take 1 tablet by alfonso th once daily at bedtime magnesium oxide 300 mg magnesium tablet Take 1 tablet by mouth once daily at bedtime. Active magnesium oxide 300 mg magnesium tablet Take by mouth. Active niacin 500 mg oral tablet (20 sources) Nicotinic Acid niacin 500 MG ta blet 1 (one) time each day at the same time. Active End: 09-29-2023 take 2 tablets by mouth once daily niacin 500 mg tablet Take 2 tablets (1,000 mg) by mouth once daily. 0 09/29/2023 Discontinued (Therapy completed) pantoprazole 40 mg delayed release oral tablet (6 sources) Proton Pump Inhibitor Start: 06-22-2024 pantoprazole (ProtoNix) 40 mg EC tablet Take 1 tablet (40 mg) by mouth if needed. 06/22/2024 Active Start: 01-31-2024 End: 06-08-2024 take 40 mg by mouth once daily Pantoprazole Discontinu ed 40 MG PO Daily January 31, 2024 12:00am June 08, 2024 10:06am Selenium (4 sources) Start: 01-31-2024 take 50 ug by mouth once daily Selenium Active 50 MCG PO Daily January 31, 2024 12:00am selenium 50 mcg tablet (4 sources) take 1 tablet by mouth once daily selenium 50 mcg tablet Take 1 tablet (50 mcg) by mouth once daily. Active Sod Picosulf-Mag Ox-Citric Ac (2 sources) Start: 05-10-2024 take 1 mL by mouth once daily Sod Picosulf-Mag Ox-Citric Ac (Clenpiq) 10 mg-3.5 gram- 12 gram/175 mL solution Active 175 ML PO Daily 10 03May 10, 2024 12:00am please follow instructions provided by Dr. Song's office. traMADol hydrochloride 50 mg oral tablet (20 sources) Opioid Agonist Start: 11-27-2022 End: 04-06-2024 take 1 tablet by mouth every six hours as needed traMADol (Ultram) 50 MG tablet Take 50 mg by mouth every 6 (six) hours if needed. 11/28/2022 Active TRAMADOL & DIETARY MANAGE PROD PO (20 sources) TRAMADOL & DIETA RY MANAGE PROD PO as directed Orally Active valsartan 80 mg oral tablet (1 source) Angiotensin 2 Receptor Fannie Start: 11-30-2024 End: 11-30-2025 take 1 tablet by mouth once daily valsartan (Diovan) 80 mg tablet Indications: Non-ischemic cardiomyopathy (Multi) Take 1 tablet (80 mg) by mouth once daily. 90 tablet 3 11/30/2024 11/30/2025 Active warfarin sodium 1 mg oral tablet (16 sources) Vitamin K Antagonist Start: 10-19-2023 warfarin (Coumadin) 1 mg tablet Take as directed by [facility] 10/19/2023 Active Start: 09-23-2023 End: [...] Xylitol (Xylimelts) 500 mg Muco-Adhesive Buccal Tablet (8 sources) Start: 09-01-2023 Xylitol (Xylim elts) 500 mg Muco-Adhesive Buccal Tablet Active 500 MG MUCOUS MEM Bedtime September 01, 2023 1:00am Start: 09-01-2023 Xylitol (Xylim elts) 500 mg Muco-Adhesive Buccal Tablet Active 500 MG MUCOUS MEM Bedtime September 01, 2023 12:00am Zinc (16 sources) Start: 02-24-2023 take 25 mg by mouth at bedtime Zinc Active 25 MG PO Bedtime February 23, 2023 11:00pm Start: 02-24-2023 take 25 mg by mouth at bedtime Zinc Active 25 MG PO Bedtime February 24, 2023 12:00am Zinc 25 MG TABS TAKE 1 TABLET DAILY. Quantity: 0 Refills: 0 Ordered: 03-Mar-2023 DO Active zinc acetate 25 mg oral capsule (7 sources) take 1 capsule by mouth once daily zinc acetate 25 mg (zinc) capsule Take 1 capsule by mouth once daily. Active zinc gluconate 50 mg oral tablet (1 source) take 0.5 tablet by mouth once daily Zinc 50 MG 1/2 tablet Orally Once a day Active zolpidem tartrate 5 mg oral tablet (20 sources) gamma-Aminobutyric Acid-ergic Agonist Start: 04-21-2023 zolpidem (Ambien) 5 MG tablet Take 5 mg by mouth as needed at bedtime. 04/21/2023 Active Completed/Discontinued Medications Medication Drug Class(es) Dates Sig (Normalized) Sig (Original) amoxicillin 500 mg / clavulanate 125 mg oral tablet (20 sources) Penicillin-class Antibacterial Start: 10-21-2023 End: 01-31-2024 [...] 2023 12:00am February 25, 2023 12:47pm Start: 02-10-2023 take 1 tablet by alfonso th every twelve hours amoxicillin-clavulanate (Augmentin) 875-125 MG tablet Take 1 tablet by mouth every 12 (twelve) hours. 02/10/2023 Active Start: 02-09-2023 take 1 tablet by alfonso th every twelve hours Amoxicillin-Pot Clavulanate 875-125 MG 1 tablet Orally every 12 hrs for 14 days January, Active take 1 tablet by alfonso th every twelve hours Augmentin 500-125 MG 1 tablet Orally every 12 hrs Active atorvastatin 40 mg oral tablet (17 sources) HMG-CoA Reductase Inhibitor Start: 02-25-2023 End: 03-02-2023 take 40 mg by mouth once daily in the evening Atorvastatin Discontinued 40 MG PO Every evening February 25, 2023 12:00am March 02, 2023 12:31pm benazepril hydrochloride 10 mg oral tablet (12 sources) Angiotensin Converting Enzyme Inhibitor Start: 02-23-2023 End: 02-25-2023 take 10 mg by mouth once daily Benazepril Discontinued 10 MG PO Daily February 23, 2023 12:00am February 25, 2023 12:47pm take 1 tablet by mouth once bay y Benazepril HCl 10 mg TAKE 1 TABLET BY MOUTH DAILY Active cholecalciferol 0.05 mg oral capsule (12 sources) Vitamin D Start: 02-24-2023 End: 01-31-2024 [...] 0 Refills: 0 Ordered: 03-Mar-2023 DO Active digoxin 0.125 mg oral tablet (13 sources) Cardiac Glycoside Start: 10-24-2023 End: 07-30-2025 take 1 tablet by mouth once daily digoxin (Lanoxin) 125 MCG tablet Indications: Persistent atrial fibrillation (Multi) Take 1 tablet (125 mcg) by mouth once daily. 90 tablet 3 07/30/2024 11/30/2024 Discontinued (Side effects) empagliflozin 10 mg oral tablet (4 sources) Sodium-Glucose Cotransporter 2 Inhibitor Start: 04-15-2023 take 1 tablet by mouth once daily Jardiance 10 MG Oral Tablet TAKE 1 TABLET BY MOUTH ONCE DAILY Quantity: 90 Refills: 3 Ordered: 15-Apr-2023 Jorge Lucio DO Start : 15-Apr-2023 Active furosemide 20 mg oral tablet (20 sources) Loop Diuretic Start: 10-24-2023 End: 01-31-2024 take 2 tablets by mouth once daily Furosemide (Lasix) 20 mg tablet Discontinued 40 MG PO Daily October 24, 2023 12:22pm January 31, 2024 [...] a day January, Active Start: 02-25-2023 End: 11-09-2024 take 1 tablet by mouth in the morning furosemide (Lasix) 20 MG tablet Take 20 mg by mouth in the morning. 02/25/2023 Active Start: 02-25-2023 End: 10-21-2023 take 1 tablet by mouth once daily Furosemide (Lasix) 20 mg tablet Discontinued 20 MG PO Daily February 25, 2023 12:00am October 21, 2023 5:18pm inositol 100 mg / niacin 400 mg oral capsule (12 sources) Nicotinic Acid Start: 09-01-2023 niacin, inosit ol niacinate, 400 mg niacin (500 mg) capsule 1 capsule if needed. 09/01/2023 Active Start: 09-01-2023 End: 07-30-2024 niacin, inositol niacinate, 400 mg niacin (500 mg) capsule 1 capsule once daily at bedtime. 09/01/2023 07/30/2024 Discontinued (Therapy completed) Magnesium (14 sources) Start: 02-27-2023 Magnesium 400 MG as directed Orally January, Not-Taking/PRN Start: 02-27-2023 Magnesium 400 MG as directed Orally January, Active Magnesium Carb,Citrate,Oxide (Magnesium Complex) 300 mg magnesium Tablet (9 sources) Start: 02-24-2023 End: 02-25-2023 take 1 [...] 2023 12:47pm melatonin 5 mg oral tablet (18 sources) Start: 02-24-2023 End: 01-31-2024 take 5 [...] sources) Nonsteroidal Anti-inflammatory Drug Start: 11-09-2022 End: 07-30-2024 take 15 mg by mouth once daily Meloxicam Discontinued 15 MG PO Daily January 31, 2024 12:00am May 15, 2024 4:59pm niacinamide 500 mg oral tablet (6 sources) End: 09-05-2023 take 1 tablet by mouth once daily niacinamide 500 mg tablet Take 1 tablet (500 mg) by mouth once daily. 0 09/05/2023 Discontinued (Therapy completed) 24 hr nitroglycerin 0.2 mg/hr transdermal system (9 sources) Nitrate Vasodilator Start: 02-25-2023 End: 03-02-2023 Nitroglycerin Discontinued 1 EACH TRANSDERML DAILY@0600 30 February 25, 2023 12:00am March 02, 2023 12:33pm [place] 4-Ocv-Peb-Fish Oil (Fish Oil) 60-90-500 mg capsule (4 sources) Start: 01-31-2024 End: 01-31-2024 take 1 capsule by mouth once daily [place] 5-Vof-Pcw-Fish Oil (Fish Oil) 60-90-500 mg capsule Discontinued [...] with food. 14 tablet 0 09/05/2023 Active rosuvastatin calcium 5 mg oral tablet (2 sources) HMG-CoA Reductase Inhibitor Start: 05-15-2024 End: 06-08-2024 take 5 mg by mouth once daily Rosuvastatin Discontinued 5 MG PO Daily May 15, 2024 12:00am June 08, 2024 10:07am sacubitril 24 mg / valsartan 26 mg oral tablet (20 sources) Angiotensin 2 Receptor Fannie Start: 12-23-2023 End: 11-30-2025 sacubitriL-valsartan (Entresto) 24-26 mg tablet Indications: Non-ischemic cardiomyopathy (Multi) , 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 congestive 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, NYHA class 2 Take 1 tablet by mouth 2 times a day. 180 tablet 11/07/2024 11/30/2024 Discontinued (Duplicate order) Start: 09-01-2023 End: 01-31-2024 take 1 tablet by mouth once daily Sacubitril-Valsartan (Entresto) 24-26 mg tablet Discontinued 1 TAB PO Daily September 01, 2023 10:20am January 31, 2024 3:52pm Start: 03-02-2023 End: 09-29-2023 take 1 tablet by mouth twice daily Sacubitril-Valsartan (Entresto) 24-26 mg tablet Discontinued 1 TAB PO Twice daily March 02, 2023 12:00am September 01, 2023 10:20am Sacubitril-Valsa rtan (ENTRESTO PO) Take by mouth. Active spironolactone 25 mg oral tablet (20 sources) Aldosterone Antagonist Start: 02-27-2023 Spironolactone 25 MG 1 tablet Orally January, Active Start: 02-25-2023 End: 07-30-2025 take 0.5 tablet by mouth once daily spironolactone (Aldactone) 25 MG tablet TAKE 1/2 (ONE-HALF) OF A TABLET BY MOUTH DAILY 02/25/2023 Active Start: 02-25-2023 take 12.5 mg by mout h once daily Spironolactone Active 12.5 MG PO Daily February 25, 2023 12:00am Problems Active Problems Problem Classification Problem Date Documented Da te Episodic/Chronic Acute bronchitis (1 source) Acute bronchitis due to other specified organisms Episodic Anxiety disorders (20 sources) Generalized anxiety disorder; Translations: [Generalized anxiety disorder] Chronic Cardiac dysrhythmias (20 sources) Paroxysmal atrial fibrillation; Translations: [Paroxysmal atrial fibrillation] Onset: 09-05-2023 09-05-2023 Chronic Chronic obstructive pulmonary disease and bronchiectasis (1 source) Bronchitis, not specified as acute or chronic Episodic Congestive 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; nonhypertensive (20 sources) Acute systolic (congestive) 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; Translations: [Congestive 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] Onset: 05-05-2023 Resolved: 09-05-2023 Chronic Coronary atherosclerosis and other heart disease (20 sources) Coronary arteriosclerosis; Translations: [Atherosclerotic heart disease of [place] coronary artery without angina pectoris] Onset: 06-22-2023 Chronic Deficiency and other anemia (1 source) Anemia; Translations: [Anemia, unspecified] 05-30-2024 Episodic Disorders of lipid metabolism (20 sources) Hypercholesterolemia ; Translations: [Pure hypercholesterolemia , unspecified] Chronic Essential hypertension (20 sources) Essential hypertension; Translations: [Essential (primary) hypertension] Onset: 03-01-2023 Chronic Gastrointestinal hemorrhage (4 sources) Melena; Translations: [Melena] 01-31-2024 Episodic Genitourinary symptoms and ill-defined conditions (1 source) Nocturia Episodic Hyperplasia of prostate (15 sources) Nocturia due to benign prostatic hypertrophy; Translations: [Benign prostatic hyperplasia with lower urinary tract symptoms] Chronic Nonmalignant breast conditions (3 sources) Hypertrophy of breast; Translations: [HYPERTROPHY OF BREAST] Onset: 03-02-2023 Episodic Nonspecific chest pain (7 sources) Chest pain; Translations: [Chest pain, unspecified] Episodic Osteoarthritis (20 sources) Bilateral primary osteoarthritis of hip; Translations: [Osteoarthritis of knee] Onset: 11-17-2017 04-05-2023 Chronic Other aftercare (5 sources) Other parts counterman (current) drug therapy; Translations: [OTH RESIDENTIAL CURRENT DRUG THERAPY] Onset: 03-02-2023 Episodic Other aftercare (2 sources) longterm (current) use of opiate analgesic; Translations: [longterm (current) use of opiate analgesic] Episodic Other aftercare (4 sources) High risk drug monitoring status; Translations: [longterm (current) use of opiate analgesic] Episodic Other aftercare (12 sources) Long-term current use of 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; Translations: [longterm (current) use of 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s] Onset: 09-07-2023 09-07-2023 Episodic Other aftercare (8 sources) Treatment changed; Translations: [Other parts counterman (current) drug therapy] Onset: 09-29-2023 09-29-2023 Episodic Other circulatory disease (2 sources) H/O: atrial fibrillation; Translations: [Personal history of other diseases of the circulatory system] Onset: 11-30-2024 11-30-2024 Episodic Other circulatory disease (2 sources) Personal history of other diseases of the circulatory system; Translations: [Personal history of other diseases of the circulatory system] Onset: 11-30-2024 Episodic Other connective tissue disease (19 sources) Spasm of cervical paraspinous muscle; Translations: [Other muscle spasm] 09-11-2024 Episodic Other gastrointestinal disorders (15 sources) Dysphagia; Translations: [Dysphagia] Episodic Other lower respiratory disease (9 sources) Orthopnea; Translations: [Orthopnea] 02-24-2023 Episodic Other lower respiratory disease (5 sources) Paroxysmal nocturnal dyspnea; Translations: [Dyspnea, unspecified] 02-23-2023 Episodic Other nervous system disorders (2 sources) Impaired cognition; Translations: [Other symptoms and signs involving cognitive functions and awareness] 10-21-2023 Episodic Other non-traumatic joint disorders (20 sources) Derangement of left shoulder joint; Translations: [Other specific joint derangements of left shoulder, not elsewhere classified] Onset: 04-05-2023 04-05-2023 Chronic Other nutritional; endocrine; and metabolic disorders (19 sources) Body mass index 30+ - obesity; Translations: [Body mass index (BMI) 30.0-30.9, adult] Onset: 01-30-2024 01-30-2024 Chronic Other nutritional; endocrine; and metabolic disorders (3 sources) Other obesity due to excess calories Chronic Other nutritional; endocrine; and metabolic disorders (4 sources) Body mass index (BMI) 30.0-30.9, adult; Translations: [Body mass index (BMI) 30.0-30.9, adult] Onset: 11-30-2024 Chronic Other nutritional; endocrine; and metabolic disorders (3 sources) Obesity caused by energy imbalance; Translations: [Other obesity due to excess calories] 09-05-2023 Chronic Other nutritional; endocrine; and metabolic disorders (3 sources) Body mass index (BMI) 31.0-31.9, adult; Translations: [Body mass index (BMI) 31.0-31.9, adult] Onset: 01-30-2024 Chronic Other screening for suspected conditions (not [...] Translations: [Obstructive sleep apnea (adult) (pediatric)] Onset: 04-05-2023 09-05-2023 Chronic Residual codes; unclassified (14 sources) Obstructive sleep apnea (adult) (pediatric); Translations: [Obstructive sleep apnea (adult)(pediatric)] Onset: 09-05-2023 Chronic Residual codes; unclassified (5 sources) Sleep apnea; Translations: [Sleep apnea, unspecified] 02-24-2023 Chronic Residual codes; unclassified (5 sources) Sleep apnea, unspecified; Translations: [Unspecified sleep apnea] Onset: 10-21-2023 02-25-2023 Chronic Residual codes; unclassified (5 sources) Obstructive sleep apnea of adult; Translations: [Obstructive sleep apnea (adult)(pediatric)] Chronic Residual codes; unclassified (2 sources) Other specified health status; Translations: [Statin intolerance] Episodic Residual codes; unclassified (2 sources) Patient noncompliance - general; Translations: [Medically noncompliant] Onset: 11-30-2024 11-30-2024 Episodic Spondylosis; intervertebral disc disorders; other back problems (20 sources) Lumbar spondylosis; Translations: [Spondylosis without myelopathy or radiculopathy, lumbar region] Chronic Substance-related disorders (6 sources) Tobacco user; Translations: [Nicotine dependence, cigarettes, in remission] Chronic Unclassified (6 sources) Other persistent atrial fibrillation; Translations: [Other persistent atrial fibrillation (Multi)] Onset: 09-29-2023 Unclassified (1 source) Preprocedural examination done 11-30-2024 Unclassified (1 source) Patient's noncompliance with other medical treatment and regimen due to unspecified reason; Translations: [Patient's noncompliance with other medical treatment and regimen due to unspecified reason] Onset: 11-30-2024 Past or Other Problems Problem Classification Problem Date Documented Date Episodic/Chronic Cardiac dysrhythmias (8 sources) Tachycardia, unspecified; Translations: [Sinus bradycardia] Onset: 01-30-2024 Episodic Deficiency and other anemia (2 sources) Anemia, unspecified; Translations: [Anemia, unspecified] Onset: 06-22-2024 05-30-2024 Episodic Disorders of teeth and jaw (11 sources) Dental caries; Translations: [Dental caries, unspecified] Onset: 10-21-2023 10-21-2023 Episodic Hepatitis (20 sources) Viral hepatitis C; Translations: [Hepatitis C] Onset: 09-30-2015 Episodic Other aftercare (6 sources) Post-discharge follow-up; Translations: [Encounter for follow-up examination after completed treatment for conditions other than malignant neoplasm] Onset: 11-10-2023 11-10-2023 Episodic Other aftercare (2 sources) 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; Translations: [longterm (current) use of 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s] Onset: 09-07-2023 Episodic Other connective tissue disease (20 sources) Non-traumatic partial tear of left rotator cuff; Translations: [Incomplete rotator cuff tear or rupture of left shoulder, not specified as traumatic] Onset: 04-05-2023 04-05-2023 Episodic Other infections; including parasitic (7 sources) Personal history of other infectious and parasitic diseases; Translations: [Personal history of COVID-19] Onset: 09-29-2023 09-29-2023 Episodic Other lower respiratory disease (2 sources) Dyspnea, unspecified; Translations: [Other respiratory abnormalities] Onset: 10-21-2023 02-25-2023 Episodic Other lower respiratory disease (5 sources) Orthopnea; Translations: [Orthopnea] Onset: 10-21-2023 02-25-2023 Episodic Other lower respiratory disease (14 sources) Dyspnea; Translations: [Shortness of breath] Onset: 06-22-2023 06-22-2023 Episodic Other lower respiratory disease (1 source) Shortness of breath; Translations: [Shortness of breath] Onset: 06-22-2023 Episodic Other nervous system disorders (3 sources) Other symptoms and signs involving cognitive functions and awareness; Translations: [Unspecified persistent mental disorders due to conditions classified elsewhere] Onset: 10-21-2023 10-21-2023 Episodic Other nutritional; endocrine; and metabolic disorders (19 sources) Obesity; Translations: [Other obesity due to excess calories] Onset: 06-22-2023 Resolved: 09-29-2023 06-22-2023 Chronic Other nutritional; endocrine; and metabolic disorders (7 sources) Obese class I; Translations: [Obesity, unspecified] Onset: 09-29-2023 Resolved: 11-10-2023 09-29-2023 Chronic Other nutritional; endocrine; and metabolic disorders (12 sources) Overweight in adulthood with body mass [...] of mental health and substance abuse codes (19 sources) Ex-smoker; Translations: [Personal history of tobacco use] Onset: 06-22-2023 06-22-2023 Episodic Comment on above: quit 2007; Unclassified (7 sources) Onset: 09-05-2023 Resolved: 03-21-2024 09-05-2023 Unclassified (1 source) Patient's noncompliance with other medical treatment and regimen due to unspecified reason; Translations: [Patient's noncompliance with other medical treatment and regimen due to unspecified reason] Onset: 11-30-2024 Viral infection (1 source) COVID-19 Results Test Name Value Interpretation Reference Range Facility ECG 12 Leadon 11-30-2024 Normal sinus rhythm at 66 bpm, first-degree AV block WV interval 206 ms, inferior lateral ST-T abnormality cannot exclude inferior myocardial infarction compared to the EKG from January 31, 2024, heart rate has increased from 58 bpm to 66 bpm otherwise there are no new findings . [facility] Work Phone: Basic Metabolic Panelon 12-2 Anion gap [Moles/Vol] Not performed Normal 6.0-15.0 [facility] Comment on above: Performed By: #### B MP ####[place] [id number] [facility] Calcium [Mass/Vol] 9.5 mg/dL Normal 8.6-10.3 [facility] Comment on above: Result Comment: PERF ORMED BY: [facility] [address] [place] [id number] PATHOLOGIST SUGAR MIXER TAMICA SÁNCHEZ M.D. Performed By: #### B MP ####[address] Chloride [Moles/Vol] 97 mmol/L Low 98-107 [facility] Comment on above: Performed By: #### B MP ####[place] [id number] [facility] CO2 [Moles/Vol] 30.4 mmol/L Normal 21.0-31.0 [facility] Comment on above: Performed By: #### B MP ####[place] [id number] [facility] Creatinine [Mass/Vol] 0.78 mg/dL Normal 0.70-1.30 [facility] Comment on above: Performed By: #### B MP ####[place] [id number] [facility] GFR/1.73 sq M.predicted MDRD (S/P/Bld) [Vol rate/Area] mL/min/{1.73_m2} Normal [facility] Comment on above: Performed By: #### B MP ####[place] [id number] [facility] Glucose [Mass/Vol] 157 mg/dL High 70-100 [facility] Comment on above: Result Comment: [place] Glucose Reference Range is dependent on time and content of last meal. Glucose of more than 200 mg/dL in a nonstressed, ambulatory subject supports the diagnosis of Diabetes Mellitus. ADA recommended reference range Performed By: #### B MP ####[address] Potassium Normal 3.5-5.1 [facility] Comment on above: Result Comment: Hemo lysis is present at a level that could interfere with the result. --- 09/21/24 1400 --- K previously reported as: 5.5 H mmol/L Hemolysis is present at a level that could interfere with the result. Performed By: #### B MP ####[address] Sodium Normal 136-145 [facility] Comment on above: Result Comment: Spec imen hemolyzed, redraw requested Performed By: #### B MP ####[address] Urea nitrogen [Mass/Vol] 13 mg/dL Normal 7-25 [facility] Comment on above: Performed By: #### B MP ####[address] Activated partial thrombopla stin time (aPTT) in platelet poor plasma by coagulation aOrdered By: Praveen Song on 06-22-2024 aPTT Coag (PPP) [Time] 31.3 s 25.1-36.5 [facility] Comment on above: A hematocrit value g reater than 55% may lead to inaccurate results in coagulation testing. Patients having hematocrit values >55% require a special collection tube for coagulation studies. Please contact the laboratory at [phone] for redraw instructions. Automated basophil %Ordered By: Praveen Song on 06-22-2024 Basophils/100 WBC (Bld) 0.6 % Normal . [facility] Comment on above: Performed By: #### P T, CBC, PTT ####[address] Automated basophil countOrde red By: Praveen Song on 06-22-2024 Basophils (Bld) [#/Vol] 0.1 10*3/uL Normal 0.0-0.2 [facility] Comment on above: Result Comment: PERF ORMED BY: [facility] [address] [place] [address] PATHOLOGIST SUGAR MIXER ION THOMPSON M.D. Performed By: #### P T, CBC, PTT ####[address] Automated blood monocyte cou ntOrdered By: Praveen Song on 06-22-2024 Monocytes (Bld) [#/Vol] 1.3 10*3/uL High 0.0-0.8 [facility] Comment on above: Performed By: #### P T, CBC, PTT ####[address] Automated eosinophil %Ordere d By: Praveen Song on 06-22-2024 Eosinophils/100 WBC (Bld) 2.4 % Normal . [facility] Comment on above: Performed By: #### P T, CBC, PTT ####[address] Automated eosinophil countOr dered By: Praveen Song on 06-22-2024 Eosinophils (Bld) [#/Vol] 0.3 10*3/uL Normal 0.0-0.45 [facility] Comment on above: Performed By: #### P T, CBC, PTT ####[address] Automated monocyte %Ordered By: Praveen Song on 06-22-2024 Monocytes/100 WBC (Bld) 9.8 % Normal . [facility] Comment on above: Performed By: #### P T, CBC, PTT ####[place] [id number] [facility] Automated neutrophil %Ordere d By: Praveen Song on 06-22-2024 Neutrophils/100 WBC (Bld) 68.2 % Normal . [facility] Comment on above: Performed By: #### P T, CBC, PTT ####[address] Complete Blood Count Auto Di ffon 06-22-2024 Mean Corpuscular HGB Conc 34.3 g/dL Normal 32.5-35.6 [facility] Comment on above: Performed By: #### P T, CBC, PTT ####[address] NRBC% 0.0 /100{WBC} Normal 0-0.5 [facility] Comment on above: Performed By: #### P T, CBC, PTT ####[address] Erythrocyte distribution wid th [Ratio] by Automated countOrdered By: Praveen Song on 06-22-2024 Erythrocyte distribution width (RBC) [Ratio] 12.7 % Normal 12.0-14.8 [facility] Comment on above: Performed By: #### P T, CBC, PTT ####[address] Erythrocytes [#/volume] in B lood by Automated countOrdered By: Praveen Song on 06-22-2024 RBC (Bld) [#/Vol] 4.52 10*6/uL Normal 3.90-5.60 [facility] Comment on above: Performed By: #### P T, CBC, PTT ####[address] Hematocrit [Volume Fraction] of Blood by Automated countOrdered By: Praveen Song on 06-22-2024 Hematocrit (Bld) [Volume fraction] 41.1 % Normal 38.8-50.0 [facility] Comment on above: Performed By: #### P T, CBC, PTT ####[address] Hemoglobin [Mass/volume] in BloodOrdered By: Praveen Song on 06-22-2024 Hemoglobin (Bld) [Mass/Vol] 14.1 g/dL Normal 13.0-17.0 [facility] Comment on above: Performed By: #### P T, CBC, PTT ####[address] INR in Platelet poor plasma by Coagulation assayOrdered By: Praveen Song on 06-22-2024 INR Coag (PPP) [Relative time] 1.2 {INR} Normal [facility] Comment on above: INR Therapeutic Rang [...] with mechanical heart valves: 3 - 4.5 Result Comment: INR Therapeutic Range A) Pre- [...] 3 - 4.5 Performed By: #### P T, CBC, PTT ####[facility] [id number] [place] [address] [facility] 06-22-2024 L Specimen: [id number] Received: 06/22/24 Status: JENIFER Rosado Num: [id number] Spec Type: Surgical Subm Dr: Praveen Song MD Tissues: A Small Intestine - Biopsy/Polyp (SMALL BOWEL R/O CELIAC) B GASTRIC FOR HP (GASTRIC R/O H PYLORI) C Colon Biopsy (DESCENDING POLYP) Procedures: HE/6, Gross/Micro L4/3, H PYLORI Age/ Patient Sex Location Account Attending Physician Vick Mercado 69/M [id number] Praveen Song MD SPEC NUM: [id number] RECD: 06/22/24 STATUS: JENIFER ROSADO NUM: [id number] MISSAEL: 06/22/24- SUBM DR: Praveen Song MD ENTERED: 06/22/[address] [facility] DR: SPEC TYPE: Surgical DEPT: S ENTERED BY: [id number] RECV BY: [id number] ORDERED: HE/6, Gross/Micro L4/3, H PYLORI ORDERED: HE/6, Gross/Micro L4/3, H PYLORI Pathological Diagnosis A. Biopsy of small bowel. Chronic inflammation, mild with the lamina propria with vascular congestion and focal edema. B. 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 IHC stains are negative for Helicobacter pylori. Appropriate reactive controls on reviewed. C. Polyp from descending colon: Hyperplastic polyp. Clinical Information Screen anemia Gross Description Part a received in formalin with the patient's name and small bowel and consists of 2 sanders portions of soft tissue both measuring 0.3 cm in greatest dimension. The specimen is entirely submitted in cassette A1. Part B received in formalin with the patient's name and gastric and consists of 2 sanders portions of soft tissue measuring 0.2 cm each. Specimen is entirely submitted cassette B1. Part C received in formalin with the patient's name and descending polyp and consists of 2 Specimen: [id number] Received: 06/22/24 Status: JENIFER Judgeabhi Num: [id number] Spec Type: Surgical Subm Dr: Praveen Song MD Tissues: A Small Intestine - Biopsy/Polyp (SMALL BOWEL R/O CELIAC) B GASTRIC FOR HP (GASTRIC R/O H PYLORI) C Colon Biopsy (DESCENDING POLYP) Procedures: HE/6, Gross/Micro L4/3, H PYLORI Patient: Vick Mercado [id number] ([facility]ly [facility]) Specimen: [id number] Received: 06/22/24 (Continued) Gross Description (Continued) Signed (signature on file) Niko Lopez MD 06/27/24 1503 Specimen: [id number] Received: 06/22/24 Status: JENIFER Rosado Num: [id number] Spec Type: Surgical Subm Dr: Praveen Song MD Tissues: A Small Intestine - Biopsy/Polyp (SMALL BOWEL R/O CELIAC) B GASTRIC FOR HP (GASTRIC R/O H PYLORI) C Colon Biopsy (DESCENDING POLYP) Procedures: HE/6, Gross/Micro L4/3, H PYLORI Patient: Vick Mercado [id number] (Continued) Specimen: [id number] Received: 06/22/24 (Continued) Gross Description (Continued) sanders portions of soft tissue measuring 0.2 and 0.3 cm in greatest dimension. The specimen is entirely submitted in cassette C1. CPT Codes 88 305 x [phone] x 1 Specimen: [id number] Received: 06/22/24 Status: JENIFER Rosado Num: [id number] Spec Type: Surgical Subm Dr: Praveen Song MD Tissues: A Small Intestine - Biopsy/Polyp (SMALL BOWEL R/O CELIAC) B GASTRIC FOR HP (GASTRIC R/O H PYLORI) C Colon Biopsy (DESCENDING POLYP) Procedures: HE/6, Gross/Micro L4/3, H PYLORI Patient: Vick Mercado [id number] (Continued) Signed (signature on file) Niko Lopez MD 06/27/24 1503 Normal [facility] Leukocytes [#/volume] correc rehan for nucleated erythrocytes in Blood by Automated counOrdered By: Praveen Song on 06-22-2024 WBC corrected for nucl RBC Auto (Bld) [#/Vol] 12.9 10*3/uL High 4.1-10.5 [facility] Leukocytes [#/volume] in Blo od by Automated countOrdered By: Praveen Song on 06-22-2024 WBC (Bld) [#/Vol] 12.9 10*3/uL High 4.1-10.5 [facility] Comment on above: Performed By: #### P T, CBC, PTT ####[address] Lymphocytes [#/volume] in Bl ood by Automated countOrdered By: Praveen Song on 06-22-2024 Lymphocytes (Bld) [#/Vol] 2.4 10*3/uL Normal 1.00-4.8 [facility] Comment on above: Performed By: #### P T, CBC, PTT ####[place] [id number] [facility] Lymphocytes/100 leukocytes i n Blood by Automated countOrdered By: Praveen Song on 06-22-2024 Lymphocytes/100 WBC (Bld) 19.0 % Normal . [facility] Comment on above: Performed By: #### P T, CBC, PTT ####[place] [id number] [place] MCH [Entitic mass] by Automa rehan countOrdered By: Praveen Song on 06-22-2024 MCH (RBC) [Entitic mass] 31.2 pg Normal 27.5-35.2 [facility] Comment on above: Performed By: #### P T, CBC, PTT ####[place] [id number] [place] [id number] [facility] MCHC Auto (RBC) [Mass/Vol]Or dered By: Praveen Song on 06-22-2024 MCHC (RBC) [Mass/Vol] 34.3 g/dL 32.5-35.6 [facility] MCV [Entitic volume] by Auto mated countOrdered By: Praveen Song on 06-22-2024 MCV (RBC) [Entitic vol] 90.9 fL Normal 83.5-101 [facility] Comment on above: Performed By: #### P T, CBC, PTT ####[place] [id number] [address] Neutrophils [#/volume] in Bl ood by Automated countOrdered By: Praveen Song on 06-22-2024 Neutrophils (Bld) [#/Vol] 8.8 10*3/uL High 1.8-7.7 [facility] Comment on above: Performed By: #### P T, CBC, PTT ####[address] Nucleated erythrocytes [Pres ence] in Blood by Automated countOrdered By: Praveen Song on 06-22-2024 Nucleated RBC Auto Ql (Bld) 0.0 /100{WBC} 0-0.5 [facility] Partial Thromboplastin Timeo n 06-22-2024 aPTT Coag (Bld) [Time] 31.3 s Normal 25.1-36.5 [facility] Comment on above: Result Comment: A he matocrit value greater than 55% may lead to inaccurate results in coagulation testing. Patients having hematocrit values >55% require a special collection tube for coagulation studies. Please contact the laboratory at [phone] for redraw instructions. PERFORMED BY: [facility] [address] [place] [address] PATHOLOGIST SUGAR MIXER ION THOMPSON M.D. Performed By: #### P T, CBC, PTT ####[place] [id number] [place] [id number] [facility] Platelet mean volume [Entiti c volume] in Blood by Automated countOrdered By: Praveen Song on 06-22-2024 Platelet mean volume (Bld) [Entitic vol] 7.6 fL Normal 6.6-10.1 [facility] Comment on above: Performed By: #### P T, CBC, PTT ####[address] Platelets [#/volume] in Bloo d by Automated countOrdered By: Praveen Song on 06-22-2024 Platelets (Bld) [#/Vol] 290 10*3/uL Normal 150-450 [facility] Comment on above: Performed By: #### P T, CBC, PTT ####[address] Prothrombin time (PT)Ordered By: Praveen Song on 06-22-2024 PT Coag (PPP) [Time] 13.7 s High 9.0-12.9 [facility] Comment on above: A hematocrit value g reater than 55% may lead to inaccurate results in coagulation testing. Patients having hematocrit values >55% require a special collection tube for coagulation studies. Please contact the laboratory at [phone] for redraw instructions. Result Comment: A he matocrit value greater than 55% may lead to inaccurate results in coagulation testing. Patients having hematocrit values >55% require a special collection tube for coagulation studies. Please contact the laboratory at [phone] for redraw instructions. Performed By: #### P T, CBC, PTT ####[place] [id number] [facility] Basophils Auto (Bld) [#/Vol] on 05-10-2024 Basophils (Bld) [#/Vol] 0.1 10 3/uL 0.0-0.1 [facility] Basophils/100 WBC Auto (Bld) on 05-10-2024 Basophils/100 WBC (Bld) 0.8 % 0.2-2.0 [facility] Cholesterol in VLDL Calc [Ma ss/Vol]on 05-10-2024 Cholesterol in VLDL [Mass/Vol] 87.8 mg/dL [facility] Eosinophils/100 WBC Auto (Bl d)on 05-10-2024 Eosinophils/100 WBC (Bld) 3.3 % 0.9-7.0 [facility] Erythrocyte distribution wid th Auto (RBC) [Ratio]on 05-10-2024 Erythrocyte distribution width (RBC) [Ratio] 12.1 % 11.0-15.0 [facility] Estimated glomerular filtrat ion rate (GFR) non- Americanon 05-10-2024 GFR/1.73 sq M.predicted among non-blacks MDRD (S/P/Bld) [Vol rate/Area] mL/min/{1.73_m2} >=60 [facility] Globulin Calc (S) [Mass/Vol] on 05-10-2024 Globulin (S) [Mass/Vol] 3.6 g/dL [facility] Hematocrit Auto (Bld) [Volum e fraction]on 05-10-2024 Hematocrit (Bld) [Volume fraction] 39.7 % Low 42.0-54.0 [facility] Hemoglobin [Mass/volume] in Bloodon 05-10-2024 Hemoglobin (Bld) [Mass/Vol] 13.4 g/dL Low 14.0-18.0 [facility] Laboratory - Chemistry and C hemistry - challengeon 05-10-2024 Albumin [Mass/Vol] 3.8 g/dL 3.4-5.0 [facility] ALP [Catalytic activity/Vol] 53 U/L 46-116 [facility] ALT [Catalytic activity/Vol] 44 U/L 16-63 [facility] AST [Catalytic activity/Vol] 28 U/L 15-37 [facility] Bilirubin [Mass/Vol] 0.4 mg/dL 0.2-1.0 [facility] Calcium [Mass/Vol] 8.9 mg/dL 8.5-10.1 [facility] Chloride [Moles/Vol] 99 mmol/L 98-107 [facility] Cholesterol [Mass/Vol] 306 mg/dL High <=200 [facility] Cholesterol in HDL [Mass/Vol] 40 mg/dL 40-60 [facility] Comment on above: > or =60 mg/dl - LOW CARDIOVASCULAR RISK<40 mg/dl - HIGH CARDIOVASCULAR RISK Cholesterol in LDL [Mass/Vol] 180 mg/dL [facility] Comment on above: <100 mg/dl [id number] 0-129 mg/dl NEAR OR ABOVE [id number] mg/dl BORDERLINE [id number] mg/dl HIGH>190 mg/dl VERY HIGH CO2 [Moles/Vol] 28.9 mmol/L 21.0-32.0 [facility] Creatinine [Mass/Vol] 0.86 mg/dL 0.70-1.30 [facility] GFR/1.73 sq M.predicted MDRD (S/P/Bld) [Vol rate/Area] mL/min/{1.73_m2} >=60 [facility] Glucose [Mass/Vol] 154 mg/dL High 74-106 [facility] Potassium [Moles/Vol] 4.3 mmol/L 3.5-5.1 [facility] Protein [Mass/Vol] 7.4 g/dL 6.4-8.2 [facility] Sodium [Moles/Vol] 136 mmol/L 136-145 [facility] Triglyceride [Mass/Vol] 439 mg/dL High <=150 [facility] Urea nitrogen [Mass/Vol] 14.0 mg/dL 7.0-18.0 [facility] Urea nitrogen/Creatinine [Mass ratio] 16.3 mg/mg [facility] Laboratory - Hematology and Cell countson 05-10-2024 Immature granulocytes/100 WBC (Bld) 0.7 % High 0.0-0.5 [facility] Leukocytes [#/volume] correc rehan for nucleated erythrocytes in Blood by Automated counon 05-10-2024 WBC corrected for nucl RBC Auto (Bld) [#/Vol] 9.8 10 3/uL 4.0-11.0 [facility] Lymphocytes Auto (Bld) [#/Vo l]on 05-10-2024 Lymphocytes (Bld) [#/Vol] 2.5 10 3/uL 1.2-3.8 [facility] Lymphocytes/100 WBC Auto (Bl d)on 05-10-2024 Lymphocytes/100 WBC (Bld) 25.5 % 20.5-60.0 [facility] MCH Auto (RBC) [Entitic mass ]on 05-10-2024 MCH (RBC) [Entitic mass] 31.6 pg 25.9-34.0 [facility] MCHC Auto (RBC) [Mass/Vol]on 05-10-2024 MCHC (RBC) [Mass/Vol] 33.8 g/dL 29.9-35.2 [facility] MCV Auto (RBC) [Entitic vol] on 05-10-2024 MCV (RBC) [Entitic vol] 93.6 fL 80.0-94.0 [facility] Monocytes Auto (Bld) [#/Vol] on 05-10-2024 Monocytes (Bld) [#/Vol] 0.9 10 3/uL High 0.3-0.8 [facility] Monocytes/100 WBC Auto (Bld) on 05-10-2024 Monocytes/100 WBC (Bld) 9.6 % 1.7-12.0 [facility] Neutrophils Auto (Bld) [#/Vo l]on 05-10-2024 Neutrophils (Bld) [#/Vol] 5.9 10 3/uL 1.4-6.5 [facility] Neutrophils/100 WBC Auto (Bl d)on 05-10-2024 Neutrophils/100 WBC (Bld) 60.1 % 43.0-75.0 [facility] No Panel Informationon 05-10 Eosinophils # (Auto) 0.3 10 3/uL 0.0-0.7 [facility] Immature Granulocyte # (Auto) 0.07 10 3/uL High 0.00-0.03 [facility] Prostate Specific Antigen Screen 2.47 ng/mL <=4.00 [facility] Platelet mean volume Auto (B ld) [Entitic vol]on 05-10-2024 Platelet mean volume (Bld) [Entitic vol] 9.5 fL 9.5-13.5 [facility] Platelets Auto (Bld) [#/Vol] on 05-10-2024 Platelets (Bld) [#/Vol] 206 10 3/uL 150-450 [facility] RBC Auto (Bld) [#/Vol]on RBC (Bld) [#/Vol] 4.24 10 6/uL Low 4.70-6.10 [facility] Serum or plasma albumin/glob ulin mass ratioon 05-10-2024 Albumin/Globulin [Mass ratio] 1.1 {ratio} [facility] Serum or plasma anion gap de terminationon 05-10-2024 Anion gap [Moles/Vol] 12.4 mmol/L [facility] Serum or plasma total choles terol/high density lipoprotein (HDL) cholesterol mass meliton 05-10-2024 Cholesterol.total/Chol esterol in HDL [Mass ratio] 7.7 {ratio} [facility] Comment on above: 3.3 - 4.4 LOW RISK4. 4 - 7.1 AVERAGE RISK7.1 - 11.0 MODERATE RISK>11.0 HIGH RISK Estimated glomerular filtrat ion rate (GFR) non- Americanon 03-23-2024 GFR/1.73 sq M.predicted among non-blacks MDRD (S/P/Bld) [Vol rate/Area] mL/min/{1.73_m2} >=60 [facility] Laboratory - Chemistry and C hemistry - challengeon 03-23-2024 Calcium [Mass/Vol] 8.9 mg/dL 8.5-10.1 [facility] Chloride [Moles/Vol] 102 mmol/L 98-107 [facility] CO2 [Moles/Vol] 27.6 mmol/L 21.0-32.0 [facility] Creatinine [Mass/Vol] 0.96 mg/dL 0.70-1.30 [facility] GFR/1.73 sq M.predicted MDRD (S/P/Bld) [Vol rate/Area] mL/min/{1.73_m2} >=60 [facility] Glucose [Mass/Vol] 143 mg/dL High 74-106 [facility] Potassium [Moles/Vol] 4.4 mmol/L 3.5-5.1 [facility] Sodium [Moles/Vol] 136 mmol/L 136-145 [facility] Urea nitrogen [Mass/Vol] 22.0 mg/dL High 7.0-18.0 [facility] Urea nitrogen/Creatinine [Mass ratio] 22.9 mg/mg [facility] Serum or plasma anion gap de terminationon 03-23-2024 Anion gap [Moles/Vol] 10.8 mmol/L [facility] TRANSTHORACIC ECHO (TTE) COM PLETEon 02-11-2024 TRANSTHORACIC ECHO (TTE) COMPLETE [address], [address], [place] [address] TRANSTHORACIC ECHOCARDIOGRAM REPORT Patient Name: VICK JESS Hsu Physician: [id number] John Pena MD Study Date: 02/11/2024 Ordering Provider: [id number] MARY NEAL MRN/PID: [id number] Fellow: Nurse: Date of /Age: 6 1955 / 68 years 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 Evaporation Operator: Francie Martin RDCS, RDMS, RVT Gender: M Additional Staff: Height: 177.80 cm Admit Date: Weight: 99.79 kg Admission Status: Outpatient BSA / BMI: 2.17 m2 / 31.57 Department Location: [facility] kg/m2 [place] Blood Pressure: 132 /64 mmHg Study Type: TRANSTHORACIC ECHO (TTE) COMPLETE Diagnosis/ICD: Paroxysmal atrial fibrillation-I48.0; 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 (congestive) 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 (CHF)-I50.22; Other cardiomyopathies-I42.8 Indication: Afib, NICM, CHF, HTN, JANETTE CPT Codes: Echo Complete w Full Doppler-[id number] Study Detail: The following Echo studies were [...] 0.7 m/s (0.6-0.9m/s) PV Max P.9 mmHg [id number] John Pena MD Electronically signed on 02/13/2024 at 1:00:52 PM Final Normal [facility] ECG 12 Leadon 01-31-2024 [facility] Work Phone: Basic Metabolic Panelon 10-04 Anion gap [Moles/Vol] 10.2 mmol/L Normal 6.0-15.0 [facility] Comment on above: Performed By: #### B MP, CBC, PT ####[place] [address] [place] [address] [facility] Calcium [Mass/Vol] 9.4 mg/dL Normal 8.6-10.3 [facility] Comment on above: Performed By: #### B MP, CBC, PT ####[facility] [place] [address] [place] Chloride [Moles/Vol] 102 mmol/L Normal 98-107 [facility] Comment on above: Performed By: #### B MP, CBC, PT ####[facility] [place] [address] [facility] CO2 [Moles/Vol] 28.8 mmol/L Normal 21.0-31.0 [facility] Comment on above: Performed By: #### B MP, CBC, PT ####[place] [id number] [facility] Creatinine [Mass/Vol] 0.80 mg/dL Normal 0.70-1.30 [facility] Comment on above: Performed By: #### B MP, CBC, PT ####[place] [address] [facility] Creatinine Clr Calc Pharmacy 100.39 Normal [facility] Comment on above: Result Comment: PERF ORMED BY: [facility] [address] [place] [address] PATHOLOGIST SUGAR MIXER ION THOMPSON M.D. Performed By: #### B MP, CBC, PT ####[address] GFR/1.73 sq M.predicted MDRD (S/P/Bld) [Vol rate/Area] mL/min/{1.73_m2} Normal [facility] Comment on above: Performed By: #### B MP, CBC, PT ####[place] [id number] [facility] Glucose [Mass/Vol] 104 mg/dL High 70-100 [facility] Comment on above: Result Comment: [place] Glucose Reference Range is dependent on time and content of last meal. Glucose of more than 200 mg/dL in a nonstressed, ambulatory subject supports the diagnosis of Diabetes Mellitus. ADA recommended reference range Performed By: #### B MP, CBC, PT ####[place] [id number] [facility] Potassium [Moles/Vol] 4.0 mmol/L Normal 3.5-5.1 [facility] Comment on above: Performed By: #### B MP, CBC, PT ####[address] Sodium [Moles/Vol] 137 mmol/L Normal 136-145 [facility] Comment on above: Performed By: #### B MP, CBC, PT ####[place] [id number] [facility] Urea nitrogen [Mass/Vol] 18 mg/dL Normal 7-25 [facility] Comment on above: Performed By: #### B MP, CBC, PT ####[address] Complete Blood Count Auto Di ffon 10-24-2023 Basophils (Bld) [#/Vol] 0.1 10*3/uL Normal 0.0-0.2 [facility] Comment on above: Result Comment: PERF ORMED BY: [facility] [address] [place] [address] PATHOLOGIST SUGAR MIXER ION THOMPSON M.D. Performed By: #### B MP, CBC, PT ####[address] Basophils/100 WBC (Bld) 0.6 % Normal . [facility] Comment on above: Performed By: #### B MP, CBC, PT ####[address] Eosinophils (Bld) [#/Vol] 0.4 10*3/uL Normal 0.0-0.45 [facility] Comment on above: Performed By: #### B MP, CBC, PT ####[address] Eosinophils/100 WBC (Bld) 3.9 % Normal . [facility] Comment on above: Performed By: #### B MP, CBC, PT ####[address] Erythrocyte distribution width (RBC) [Ratio] 12.3 % Normal 12.0-14.8 [facility] Comment on above: Performed By: #### B MP, CBC, PT ####[address] Hematocrit (Bld) [Volume fraction] 40.6 % Normal 38.8-50.0 [facility] Comment on above: Performed By: #### B MP, CBC, PT ####[place] [address] [place] Hemoglobin (Bld) [Mass/Vol] 14.0 g/dL Normal 13.0-17.0 [facility] Comment on above: Performed By: #### B MP, CBC, PT ####[address] Lymphocytes (Bld) [#/Vol] 2.2 10*3/uL Normal 1.00-4.8 [facility] Comment on above: Performed By: #### B MP, CBC, PT ####[address] Lymphocytes/100 WBC (Bld) 22.2 % Normal . [facility] Comment on above: Performed By: #### B MP, CBC, PT ####[address] MCH (RBC) [Entitic mass] 31.2 pg Normal 27.5-35.2 [facility] Comment on above: Performed By: #### B MP, CBC, PT ####[address] MCV (RBC) [Entitic vol] 90.3 fL Normal 83.5-101 [facility] Comment on above: Performed By: #### B MP, CBC, PT ####[address] Mean Corpuscular HGB Conc 34.5 g/dL Normal 32.5-35.6 [facility] Comment on above: Performed By: #### B MP, CBC, PT ####[address] Monocytes (Bld) [#/Vol] 1.1 10*3/uL High 0.0-0.8 [facility] Comment on above: Performed By: #### B MP, CBC, PT ####[address] Monocytes/100 WBC (Bld) 11.6 % Normal . [facility] Comment on above: Performed By: #### B MP, CBC, PT ####[address] Neutrophils (Bld) [#/Vol] 6.0 10*3/uL Normal 1.8-7.7 [facility] Comment on above: Performed By: #### B MP, CBC, PT ####[place] [id number] [facility] Neutrophils/100 WBC (Bld) 61.7 % Normal . [facility] Comment on above: Performed By: #### B MP, CBC, PT ####[address] NRBC% 0.1 /100{WBC} Normal 0-0.5 [facility] Comment on above: Performed By: #### B MP, CBC, PT ####[address] Platelet mean volume (Bld) [Entitic vol] 8.1 fL Normal 6.6-10.1 [facility] Comment on above: Performed By: #### B MP, CBC, PT ####[place] [id number] [facility] Platelets (Bld) [#/Vol] 213 10*3/uL Normal 150-450 [facility] Comment on above: Performed By: #### B MP, CBC, PT ####[place] [id number] [facility] RBC (Bld) [#/Vol] 4.49 10*6/uL Normal 3.90-5.60 [facility] Comment on above: Performed By: #### B MP, CBC, PT ####[place] [address] [facility] WBC (Bld) [#/Vol] 9.8 10*3/uL Normal 4.1-10.5 [facility] Comment on above: Performed By: #### B MP, CBC, PT ####[place] [id number] [facility] ECG 12 lead ECGon 10-24-2023 ECG 12 lead ECG [facility] Main [address] [address] Electrocardiograph Report Signed Patient: Vick Mercado MR#: [id number] : 1955 Acct:[id number] Age/Sex: 68 / M ADM Date: 10/21/23 Loc: 3T Room: [address] [place] [address] Type: DIS IN Attending Dr: Bon Harman DO Ordering Provider: John Pena MD Date of Service: 10/24/23 ECG/ECG 12 lead ECG: Rythm check before DC Copies to: Test Reason [...] Pena MD 0 10/25/23 1509 Normal [facility] ECG 12 lead ECG [facility] Main [address] [address] Electrocardiograph Report Signed Patient: Vick Mercado MR#: [id number] : 1955 Acct:[id number] Age/Sex: 68 / M ADM Date: 10/21/23 Loc: Room: [address] [place] [address] Type: ADM IN Attending Dr: Bon Harman [...] Pena MD 0 10/24/23 1219 Normal [facility] ECG 12 lead ECG [facility] [place] [address] Electrocardiograph Report Signed Patient: Vick Mercado MR#: [id number] : 1955 Acct:[id number] Age/Sex: 68 / M ADM Date: 10/21/23 Loc: Room: [address] [place] [address] Type: ADM IN Attending Dr: Bon Harman [...] Pena MD 0 10/24/23 1219 Normal [facility] ECG post procedureon 024 ECG post procedure [facility] Main [place] [address] [place] [address] Electrocardiograph Report Signed Patient: Vick Mercado MR#: [id number] : 1955 Acct:[id number] Age/Sex: 68 / M ADM Date: 10/21/23 Loc: Room: [address] [place] [address] Type: DIS IN Attending Dr: Bon Harman [...] Pena MD 0 10/25/23 1313 Normal [facility] Prothrombin Time INRon 10-24 INR Coag (PPP) [Relative time] 2.2 {INR} Normal [facility] Comment on above: Result Comment: [...] heart valves: 3 - 4.5 PERFORMED BY: [address] [address] PATHOLOGIST SUGAR MIXER ION THOMPSON M.D. Performed By: #### B MP, CBC, PT ####[address] PT Coag (PPP) [Time] 25.3 s High 9.0-12.9 [facility] Comment on above: Result Comment: A he matocrit value greater than 55% may lead to inaccurate results in coagulation testing. Patients having hematocrit values >55% require a special collection tube for coagulation studies. Please contact the laboratory at [phone] for redraw instructions. Performed By: #### B MP, CBC, PT ####[address] Basic Metabolic Panelon 10-04 Anion gap [Moles/Vol] 10.1 mmol/L Normal 6.0-15.0 [facility] Comment on above: Performed By: #### P T, BMP, CBC ####[address] Calcium [Mass/Vol] 9.2 mg/dL Normal 8.6-10.3 [facility] Comment on above: Performed By: #### P T, BMP, CBC ####[address] Chloride [Moles/Vol] 103 mmol/L Normal 98-107 [facility] Comment on above: Performed By: #### P T, BMP, CBC ####[address] CO2 [Moles/Vol] 26.2 mmol/L Normal 21.0-31.0 [facility] Comment on above: Performed By: #### P T, BMP, CBC ####[address] Creatinine [Mass/Vol] 0.76 mg/dL Normal 0.70-1.30 [facility] Comment on above: Performed By: #### P T, BMP, CBC ####[address] Creatinine Clr Calc Pharmacy 101.72 Normal [facility] Comment on above: Result Comment: PERF ORMED BY: [facility] [address] [place] [address] PATHOLOGIST SUGAR MIXER ION THOMPSON M.D. Performed By: #### P T, BMP, CBC ####[place] [address] GFR/1.73 sq M.predicted MDRD (S/P/Bld) [Vol rate/Area] mL/min/{1.73_m2} Normal [facility] Comment on above: Performed By: #### P T, BMP, CBC ####[place] [address] Glucose [Mass/Vol] 105 mg/dL High 70-100 [facility] Comment on above: Result Comment: [place] Glucose Reference Range is dependent on time and content of last meal. Glucose of more than 200 mg/dL in a nonstressed, ambulatory subject supports the diagnosis of Diabetes Mellitus. ADA recommended reference range Performed By: #### P T, BMP, CBC ####[address] Potassium [Moles/Vol] 4.3 mmol/L Normal 3.5-5.1 [facility] Comment on above: Performed By: #### P T, BMP, CBC ####[address] Sodium [Moles/Vol] 135 mmol/L Low 136-145 [facility] Comment on above: Performed By: #### P T, BMP, CBC ####[place] [id number] [facility] Urea nitrogen [Mass/Vol] 16 mg/dL Normal 7-25 [facility] Comment on above: Performed By: #### P T, BMP, CBC ####[address] Complete Blood Count Auto Di ffon 10-23-2023 Basophils (Bld) [#/Vol] 0.0 10*3/uL Normal 0.0-0.2 [facility] Comment on above: Result Comment: PERF ORMED BY: [facility] [place] [address] PATHOLOGIST SUGAR MIXER ION THOMPSON M.D. Performed By: #### P T, BMP, CBC ####[address] Basophils/100 WBC (Bld) 0.4 % Normal . [facility] Comment on above: Performed By: #### P T, BMP, CBC ####[address] Eosinophils (Bld) [#/Vol] 0.4 10*3/uL Normal 0.0-0.45 [facility] Comment on above: Performed By: #### P T, BMP, CBC ####[address] Eosinophils/100 WBC (Bld) 2.9 % Normal . [facility] Comment on above: Performed By: #### P T, BMP, CBC ####[address] Erythrocyte distribution width (RBC) [Ratio] 12.6 % Normal 12.0-14.8 [facility] Comment on above: Performed By: #### P T, BMP, CBC ####[address] Hematocrit (Bld) [Volume fraction] 39.5 % Normal 38.8-50.0 [facility] Comment on above: Performed By: #### P T, BMP, CBC ####[address] Hemoglobin (Bld) [Mass/Vol] 13.5 g/dL Normal 13.0-17.0 [facility] Comment on above: Performed By: #### P T, BMP, CBC ####[address] Lymphocytes (Bld) [#/Vol] 2.4 10*3/uL Normal 1.00-4.8 [facility] Comment on above: Performed By: #### P T, BMP, CBC ####[address] Lymphocytes/100 WBC (Bld) 19.5 % Normal . [facility] Comment on above: Performed By: #### P T, BMP, CBC ####[address] MCH (RBC) [Entitic mass] 31.0 pg Normal 27.5-35.2 [facility] Comment on above: Performed By: #### P T, BMP, CBC ####[address] MCV (RBC) [Entitic vol] 91.0 fL Normal 83.5-101 [facility] Comment on above: Performed By: #### P T, BMP, CBC ####[address] Mean Corpuscular HGB Conc 34.1 g/dL Normal 32.5-35.6 [facility] Comment on above: Performed By: #### P T, BMP, CBC ####[address] Monocytes (Bld) [#/Vol] 1.3 10*3/uL High 0.0-0.8 [facility] Comment on above: Performed By: #### P T, BMP, CBC ####[address] Monocytes/100 WBC (Bld) 10.6 % Normal . [facility] Comment on above: Performed By: #### P T, BMP, CBC ####[address] Neutrophils (Bld) [#/Vol] 8.1 10*3/uL High 1.8-7.7 [facility] Comment on above: Performed By: #### P T, BMP, CBC ####[address] Neutrophils/100 WBC (Bld) 66.6 % Normal . [facility] Comment on above: Performed By: #### P T, BMP, CBC ####[address] NRBC% 0.1 /100{WBC} Normal 0-0.5 [facility] Comment on above: Performed By: #### P T, BMP, CBC ####[address] Platelet mean volume (Bld) [Entitic vol] 8.2 fL Normal 6.6-10.1 [facility] Comment on above: Performed By: #### P T, BMP, CBC ####[address] Platelets (Bld) [#/Vol] 217 10*3/uL Normal 150-450 [facility] Comment on above: Performed By: #### P T, BMP, CBC ####[address] RBC (Bld) [#/Vol] 4.34 10*6/uL Normal 3.90-5.60 [facility] Comment on above: Performed By: #### P T, BMP, CBC ####[address] WBC (Bld) [#/Vol] 12.1 10*3/uL High 4.1-10.5 [facility] Comment on above: Performed By: #### P T, BMP, CBC ####[address] ECG 12 lead ECGon 10-23-2023 ECG 12 lead ECG [facility] Main [place] [address] [place] [address] Electrocardiograph Report Signed Patient: Vick Mercado MR#: [id number] : 1955 Acct:[id number] Age/Sex: 68 / M ADM Date: 10/21/23 Loc: Room: [address] [place] [address] Type: ADM IN Attending Dr: Bon Harman [...] leads Confirmed by BECKY MATA, JOHN ([id number]), offline editor Matthew Lei ([id number]) on 10/24/2023 8:19:52 AM Referred By: Electronically Signed By:JOHN PENA MD Transcribed By: MUS Signed By John Pena MD 0 10/24/23 0819 Normal [facility] Electrolyteson 10-23-2023 Anion gap [Moles/Vol] 11.8 mmol/L Normal 6.0-15.0 [facility] Comment on above: Result Comment: PERF ORMED BY: [facility] [address] [place] [id number] PATHOLOGIST SUGAR MIXER ION THOMPSON M.D. Performed By: #### L YTES ####[place] [address] [place] [id number] [facility] Chloride [Moles/Vol] 100 mmol/L Normal 98-107 [facility] Comment on above: Performed By: #### L YTES ####[place] [address] [place] [id number] [facility] CO2 [Moles/Vol] 28.3 mmol/L Normal 21.0-31.0 [facility] Comment on above: Performed By: #### L YTES ####[place] [address] [place] [id number] [facility] Potassium [Moles/Vol] 4.1 mmol/L Normal 3.5-5.1 [facility] Comment on above: Performed By: #### L YTES ####[place] [id number] [facility] Sodium [Moles/Vol] 136 mmol/L Normal 136-145 [facility] Comment on above: Performed By: #### L YTES ####[place] [id number] [facility] Prothrombin Time INRon 10-23 INR Coag (PPP) [Relative time] 2.5 {INR} Normal [facility] Comment on above: Result Comment: [...] heart valves: 3 - 4.5 PERFORMED BY: [address] [place] [address] PATHOLOGIST SUGAR MIXER ION THOMPSON M.D. Performed By: #### P T, BMP, CBC ####[place] [id number] [facility] PT Coag (PPP) [Time] 28.1 s High 9.0-12.9 [facility] Comment on above: Result Comment: A he matocrit value greater than 55% may lead to inaccurate results in coagulation testing. Patients having hematocrit values >55% require a special collection tube for coagulation studies. Please contact the laboratory at [phone] for redraw instructions. Performed By: #### P T, BMP, CBC ####[place] [id number] [facility] A1C with Estimated Average G luon 10-22-2023 Glucose [Mass/Vol] 137 mg/dL Normal [facility] Comment on above: Result Comment: PERF ORMED BY: [address] [place] [id number] PATHOLOGIST SUGAR MIXER ION THOMPSON M.D. Performed By: #### M G, PT, A1C WTH eA, BMP, CBC, [id number] ####[address]#### VITB1 ####[facility] , HbA1c (Bld) [Mass fraction] 6.4 % High 4.3-5.6 [facility] Comment on above: Result Comment: Incr eased risk for diabetes: 5.7 - 6.4 diabetes: >6.4 glycemic control for adults with diabetes: <7.0 Performed By: #### M G, PT, A1C WTH eA, BMP, CBC, [id number] ####[address]#### VITB1 ####[facility] , Basic Metabolic Panelon 10-04 Anion gap [Moles/Vol] 10.6 mmol/L Normal 6.0-15.0 [facility] Comment on above: Performed By: #### M G, PT, A1C WTH eA, BMP, CBC, [id number] ####[address]#### VITB1 ####[facility] , Calcium [Mass/Vol] 9.1 mg/dL Normal 8.6-10.3 [facility] Comment on above: Performed By: #### M G, PT, A1C WTH eA, BMP, CBC, [id number] ####[address]#### VITB1 ####[facility] , Chloride [Moles/Vol] 104 mmol/L Normal 98-107 [facility] Comment on above: Performed By: #### M G, PT, A1C WTH eA, BMP, CBC, [id number] ####[address]#### VITB1 ####[facility] , CO2 [Moles/Vol] 24.6 mmol/L Normal 21.0-31.0 [facility] Comment on above: Performed By: #### M G, PT, A1C WTH eA, BMP, CBC, [id number] ####[address]#### VITB1 ####[facility] , Creatinine [Mass/Vol] 0.84 mg/dL Normal 0.70-1.30 [facility] Comment on above: Performed By: #### M G, PT, A1C WTH eA, BMP, CBC, [id number] ####[address]#### VITB1 ####[facility] , Creatinine Clr Calc Pharmacy 97.01 Normal [facility] Comment on above: Performed By: #### M G, PT, A1C WTH eA, BMP, CBC, [id number] ####[address]#### VITB1 ####[facility] , GFR/1.73 sq M.predicted MDRD (S/P/Bld) [Vol rate/Area] mL/min/{1.73_m2} Normal [facility] Comment on above: Performed By: #### M G, PT, A1C WTH eA, BMP, CBC, [id number] ####[address]#### VITB1 ####[facility] , Glucose [Mass/Vol] 129 mg/dL High 70-100 [facility] Comment on above: Result Comment: [place] om Glucose Reference Range is dependent on time and content of last meal. Glucose of more than 200 mg/dL in a nonstressed, ambulatory subject supports the diagnosis of Diabetes Mellitus. ADA recommended reference range Performed By: #### M G, PT, A1C WTH eA, BMP, CBC, [id number] ####[place] [address] [place]#### VITB1 ####[facility] , Potassium [Moles/Vol] 4.2 mmol/L Normal 3.5-5.1 [facility] Comment on above: Performed By: #### M G, PT, A1C WTH eA, BMP, CBC, [id number] ####[address]#### VITB1 ####[facility] , Sodium [Moles/Vol] 135 mmol/L Low 136-145 [facility] Comment on above: Performed By: #### M G, PT, A1C WTH eA, BMP, CBC, [id number] ####[address]#### VITB1 ####[facility] , Urea nitrogen [Mass/Vol] 20 mg/dL Normal 7-25 [facility] Comment on above: Performed By: #### M G, PT, A1C WTH eA, BMP, CBC, [id number] ####[address]#### VITB1 ####[facility] , Complete Blood Count Auto Di ffon 10-22-2023 Basophils (Bld) [#/Vol] 0.1 10*3/uL Normal 0.0-0.2 [facility] Comment on above: Result Comment: PERF ORMED BY: [facility] [address] [place] [address] PATHOLOGIST SUGAR MIXER ION THOMPSON M.D. Performed By: #### M G, PT, A1C WTH eA, BMP, CBC, [id number] ####[address]#### VITB1 ####[facility] , Basophils/100 WBC (Bld) 0.6 % Normal . [facility] Comment on above: Performed By: #### M G, PT, A1C WTH eA, BMP, CBC, [id number] ####[address]#### VITB1 ####[facility] , Eosinophils (Bld) [#/Vol] 0.3 10*3/uL Normal 0.0-0.45 [facility] Comment on above: Performed By: #### M G, PT, A1C WTH eA, BMP, CBC, [id number] ####[address]#### VITB1 ####[facility] , Eosinophils/100 WBC (Bld) 2.1 % Normal . [facility] Comment on above: Performed By: #### M G, PT, A1C WTH eA, BMP, CBC, [id number] ####[address]#### VITB1 ####[facility] , Erythrocyte distribution width (RBC) [Ratio] 12.5 % Normal 12.0-14.8 [facility] Comment on above: Performed By: #### M G, PT, A1C WTH eA, BMP, CBC, [id number] ####[address]#### VITB1 ####[facility] , Hematocrit (Bld) [Volume fraction] 38.9 % Normal 38.8-50.0 [facility] Comment on above: Performed By: #### M G, PT, A1C WTH eA, BMP, CBC, [id number] ####[place] [address] [place]#### VITB1 ####[facility] , Hemoglobin (Bld) [Mass/Vol] 13.1 g/dL Normal 13.0-17.0 [facility] Comment on above: Performed By: #### M G, PT, A1C WTH eA, BMP, CBC, [id number] ####[address]#### VITB1 ####[facility] , Lymphocytes (Bld) [#/Vol] 1.9 10*3/uL Normal 1.00-4.8 [facility] Comment on above: Performed By: #### M G, PT, A1C WTH eA, BMP, CBC, [id number] ####[address]#### VITB1 ####[facility] , Lymphocytes/100 WBC (Bld) 15.1 % Normal . [facility] Comment on above: Performed By: #### M G, PT, A1C WTH eA, BMP, CBC, [id number] ####[address]#### VITB1 ####[facility] , MCH (RBC) [Entitic mass] 30.6 pg Normal 27.5-35.2 [facility] Comment on above: Performed By: #### M G, PT, A1C WTH eA, BMP, CBC, [id number] ####[address]#### VITB1 ####[facility] , MCV (RBC) [Entitic vol] 90.7 fL Normal 83.5-101 [facility] Comment on above: Performed By: #### M G, PT, A1C WTH eA, BMP, CBC, [id number] ####[address]#### VITB1 ####[facility] , Mean Corpuscular HGB Conc 33.7 g/dL Normal 32.5-35.6 [facility] Comment on above: Performed By: #### M G, PT, A1C WTH eA, BMP, CBC, [id number] ####[place] [id number] [place]#### VITB1 ####[facility] , Monocytes (Bld) [#/Vol] 1.2 10*3/uL High 0.0-0.8 [facility] Comment on above: Performed By: #### M G, PT, A1C WTH eA, BMP, CBC, [id number] ####[place] [address] [place]#### VITB1 ####[facility] , Monocytes/100 WBC (Bld) 9.8 % Normal . [facility] Comment on above: Performed By: #### M G, PT, A1C WTH eA, BMP, CBC, [id number] ####[address]#### VITB1 ####[facility] , Neutrophils (Bld) [#/Vol] 8.9 10*3/uL High 1.8-7.7 [facility] Comment on above: Performed By: #### M G, PT, A1C WTH eA, BMP, CBC, [id number] ####[address]#### VITB1 ####[facility] , Neutrophils/100 WBC (Bld) 72.4 % Normal . [facility] Comment on above: Performed By: #### M G, PT, A1C WTH eA, BMP, CBC, [id number] ####[address]#### VITB1 ####[facility] , NRBC% 0.0 /100{WBC} Normal 0-0.5 [facility] Comment on above: Performed By: #### M G, PT, A1C WTH eA, BMP, CBC, [id number] ####[place] [address] [place]#### VITB1 ####[facility] , Platelet mean volume (Bld) [Entitic vol] 7.9 fL Normal 6.6-10.1 [facility] Comment on above: Performed By: #### M G, PT, A1C WTH eA, BMP, CBC, [id number] ####[address]#### VITB1 ####[facility] , Platelets (Bld) [#/Vol] 217 10*3/uL Normal 150-450 [facility] Comment on above: Performed By: #### M G, PT, A1C WTH eA, BMP, CBC, [id number] ####[address]#### VITB1 ####[facility] , RBC (Bld) [#/Vol] 4.28 10*6/uL Normal 3.90-5.60 [facility] Comment on above: Performed By: #### M G, PT, A1C WTH eA, BMP, CBC, [id number] ####[address]#### VITB1 ####[facility] , WBC (Bld) [#/Vol] 12.3 10*3/uL High 4.1-10.5 [facility] Comment on above: Performed By: #### M G, PT, A1C WTH eA, BMP, CBC, [id number] ####[address]#### VITB1 ####[facility] , ECG 12 lead ECGon 10-22-2023 ECG 12 lead [address] [facility] [place] [address] Electrocardiograph Report Signed Patient: Vick Mercado MR#: [id number] : 1955 Acct:[id number] Age/Sex: 68 / M ADM Date: 10/21/23 Loc: 3T Room: [address] [place] [address] Type: ADM IN Attending Dr: Bon Harman [...] Pena MD 0 10/22/23 1440 Normal [facility] ECH echo transthoracicon ECH echo transthoracic [facility] [address] Echocardiogram Signed Patient: Vick Mercado MR#: [id number] : 1955 Acct:[id number] Age/Sex: 68 / M ADM Date: 10/21/23 Loc: Room: [address] [place] [address] Type: ADM IN Attending Dr: Bon Harman DO Ordering Provider: Bon Harman DO Date of Service: 10/21/23 ECH/ECH echo transthoracic: A-Fib with RVR, weight gain, [...] Transcribed (more content not included)... Normal [facility] Magnesiumon 10-22-2023 Magnesium [Mass/Vol] 2.1 mg/dL Normal 1.9-2.7 [facility] Comment on above: Performed By: #### M G, PT, A1C WTH eA, BMP, CBC, [id number] ####[facility]#### VITB1 ####[facility] , Prothrombin Time INRon 10-22 INR Coag (PPP) [Relative time] 2.6 {INR} Normal [facility] Comment on above: Result Comment: [...] heart valves: 3 - 4.5 PERFORMED BY: [facility] [address] [place] [address] PATHOLOGIST SUGAR MIXER ION THOMPSON M.D. Performed By: #### M G, PT, A1C WTH eA, BMP, CBC, [id number] ####[address]#### VITB1 ####[facility] , PT Coag (PPP) [Time] 29.1 s High 9.0-12.9 [facility] Comment on above: Result Comment: A he matocrit value greater than 55% may lead to inaccurate results in coagulation testing. Patients having hematocrit values >55% require a special collection tube for coagulation studies. Please contact the laboratory at [phone] for redraw instructions. Performed By: #### M G, PT, A1C WTH eA, BMP, CBC, [id number] ####[address]#### VITB1 ####[facility] , Vit. B12/Folate Profileon Cobalamin (Vitamin B12) [Mass/Vol] 436 pg/mL Normal 180-914 [facility] Comment on above: Performed By: #### M G, PT, A1C WTH eA, BMP, CBC, [id number] ####[address]#### VITB1 ####[facility] , Folate 33.0 ng/mL Normal >5.9 [facility] Comment on above: Result Comment: Toya te reference range: >5.9 ng/ml The WHO technical consultation on folate and vitamin b12 deficiencies has determined that folate concentrations less than 4 ng/ml are considered deficient. PERFORMED BY: [address] [place] [id number] PATHOLOGIST SUGAR MIXER ION THOMPSON M.D. Performed By: #### M G, PT, A1C WTH eA, BMP, CBC, [id number] ####[address]#### VITB1 ####[facility] , Vitamin B1 (Thiamine) Bloodo n 10-22-2023 Vitamin B1 (Thiamine) Blood 173.4 Normal 66.5-200.0 [facility] Comment on above: Result Comment: This test was developed and its performance characteristics determined by [facility]. It has not been cleared or approved by the Food and Drug Administration. Performed at: [facility] Lab[address] [id number] Junior Oracle Dba: Johnson Rene MD, Phone: [phone] PERFORMED BY: [place] [address] PATHOLOGIST SUGAR MIXER ION THOMPSON M.D. Performed By: #### M G, PT, A1C WTH eA, BMP, CBC, [id number] ####[address]#### VITB1 ####[facility] , B-Type Natriuretic Peptideon 10-21-2023 Natriuretic peptide B (Bld) [Mass/Vol] 954.0 pg/mL High 5-100 [facility] Comment on above: Result Comment: PERF ORMED BY: [place] [address] PATHOLOGIST SUGAR MIXER ION THOMPSON M.D. Performed By: #### P T, HS TROP, CBC, CK, MG, CMP, BNP, PTT ####[address] Complete Blood Count Auto Di ffon 10-21-2023 Basophils (Bld) [#/Vol] 0.1 10*3/uL Normal 0.0-0.2 [facility] Comment on above: Result Comment: PERF ORMED BY: [place] [address] PATHOLOGIST SUGAR MIXER ION THOMPSON M.D. Performed By: #### P T, HS TROP, CBC, CK, MG, CMP, BNP, PTT #### [address] Basophils/100 WBC (Bld) 0.9 % Normal . [facility] Comment on above: Performed By: #### P T, HS TROP, CBC, CK, MG, CMP, BNP, PTT #### [address] Eosinophils (Bld) [#/Vol] 0.3 10*3/uL Normal 0.0-0.45 [facility] Comment on above: Performed By: #### P T, HS TROP, CBC, CK, MG, CMP, BNP, PTT #### [address] Eosinophils/100 WBC (Bld) 1.9 % Normal . [facility] Comment on above: Performed By: #### P T, HS TROP, CBC, CK, MG, CMP, BNP, PTT #### [address] Erythrocyte distribution width (RBC) [Ratio] 12.5 % Normal 12.0-14.8 [facility] Comment on above: Performed By: #### P T, HS TROP, CBC, CK, MG, CMP, BNP, PTT #### [address] Hematocrit (Bld) [Volume fraction] 42.0 % Normal 38.8-50.0 [facility] Comment on above: Performed By: #### P T, HS TROP, CBC, CK, MG, CMP, BNP, PTT #### [address] Hemoglobin (Bld) [Mass/Vol] 14.4 g/dL Normal 13.0-17.0 [facility] Comment on above: Performed By: #### P T, HS TROP, CBC, CK, MG, CMP, BNP, PTT #### [address] Lymphocytes (Bld) [#/Vol] 2.5 10*3/uL Normal 1.00-4.8 [facility] Comment on above: Performed By: #### P T, HS TROP, CBC, CK, MG, CMP, BNP, PTT #### [address] Lymphocytes/100 WBC (Bld) 18.7 % Normal . [facility] Comment on above: Performed By: #### P T, HS TROP, CBC, CK, MG, CMP, BNP, PTT #### [address] MCH (RBC) [Entitic mass] 30.9 pg Normal 27.5-35.2 [facility] Comment on above: Performed By: #### P T, HS TROP, CBC, CK, MG, CMP, BNP, PTT #### [address] MCV (RBC) [Entitic vol] 90.4 fL Normal 83.5-101 [facility] Comment on above: Performed By: #### P T, HS TROP, CBC, CK, MG, CMP, BNP, PTT #### [address] Mean Corpuscular HGB Conc 34.2 g/dL Normal 32.5-35.6 [facility] Comment on above: Performed By: #### P T, HS TROP, CBC, CK, MG, CMP, BNP, PTT #### [address] Monocytes (Bld) [#/Vol] 1.3 10*3/uL High 0.0-0.8 [facility] Comment on above: Performed By: #### P T, HS TROP, CBC, CK, MG, CMP, BNP, PTT #### [address] Monocytes/100 WBC (Bld) 18.03 % Normal 0.00-20.00 [facility] Comment on above: Performed By: #### P T, HS TROP, CBC, CK, MG, CMP, BNP, PTT #### [address] Monocytes/100 WBC (Bld) 9.6 % Normal . [facility] Comment on above: Performed By: #### P T, HS TROP, CBC, CK, MG, CMP, BNP, PTT #### [address] Neutrophils (Bld) [#/Vol] 9.2 10*3/uL High 1.8-7.7 [facility] Comment on above: Performed By: #### P T, HS TROP, CBC, CK, MG, CMP, BNP, PTT #### [address] Neutrophils/100 WBC (Bld) 68.9 % Normal . [facility] Comment on above: Performed By: #### P T, HS TROP, CBC, CK, MG, CMP, BNP, PTT #### [address] NRBC% 0.1 /100{WBC} Normal 0-0.5 [facility] Comment on above: Performed By: #### P T, HS TROP, CBC, CK, MG, CMP, BNP, PTT #### [address] Platelet mean volume (Bld) [Entitic vol] 8.2 fL Normal 6.6-10.1 [facility] Comment on above: Performed By: #### P T, HS TROP, CBC, CK, MG, CMP, BNP, PTT #### [address] Platelets (Bld) [#/Vol] 252 10*3/uL Normal 150-450 [facility] Comment on above: Performed By: #### P T, HS TROP, CBC, CK, MG, CMP, BNP, PTT #### [address] RBC (Bld) [#/Vol] 4.65 10*6/uL Normal 3.90-5.60 [facility] Comment on above: Performed By: #### P T, HS TROP, CBC, CK, MG, CMP, BNP, PTT #### [address] WBC (Bld) [#/Vol] 13.4 10*3/uL High 4.1-10.5 [facility] Comment on above: Performed By: #### P T, HS TROP, CBC, CK, MG, CMP, BNP, PTT #### [address] Comprehensive Metabolic Pane kyrie 10-21-2023 Albumin [Mass/Vol] 4.6 g/dL Normal 3.5-5.7 [facility] Comment on above: Performed By: #### P T, HS TROP, CBC, CK, MG, CMP, BNP, PTT #### [address] Albumin/Globulin [Mass ratio] 1.4 {ratio} Normal [facility] Comment on above: Performed By: #### P T, HS TROP, CBC, CK, MG, CMP, BNP, PTT #### [address] ALP [Catalytic activity/Vol] 58 U/L Normal 34-104 [facility] Comment on above: Performed By: #### P T, HS TROP, CBC, CK, MG, CMP, BNP, PTT #### [address] ALT [Catalytic activity/Vol] 18 U/L Normal 7-52 [facility] Comment on above: Performed By: #### P T, HS TROP, CBC, CK, MG, CMP, BNP, PTT #### [address] Anion gap [Moles/Vol] 12.4 mmol/L Normal 6.0-15.0 [facility] Comment on above: Performed By: #### P T, HS TROP, CBC, CK, MG, CMP, BNP, PTT #### [address] AST [Catalytic activity/Vol] 22 U/L Normal 13-39 [facility] Comment on above: Performed By: #### P T, HS TROP, CBC, CK, MG, CMP, BNP, PTT #### [place] [address] Bilirubin [Mass/Vol] 1.0 mg/dL Normal 0.3-1.0 [facility] Comment on above: Performed By: #### P T, HS TROP, CBC, CK, MG, CMP, BNP, PTT #### [address] Calcium [Mass/Vol] 9.8 mg/dL Normal 8.6-10.3 [facility] Comment on above: Performed By: #### P T, HS TROP, CBC, CK, MG, CMP, BNP, PTT #### [address] Chloride [Moles/Vol] 103 mmol/L Normal 98-107 [facility] Comment on above: Performed By: #### P T, HS TROP, CBC, CK, MG, CMP, BNP, PTT #### [address] CO2 [Moles/Vol] 25.8 mmol/L Normal 21.0-31.0 [facility] Comment on above: Performed By: #### P T, HS TROP, CBC, CK, MG, CMP, BNP, PTT #### [address] Creatinine [Mass/Vol] 0.91 mg/dL Normal 0.70-1.30 [facility] Comment on above: Performed By: #### P T, HS TROP, CBC, CK, MG, CMP, BNP, PTT #### [address] Creatinine Clr Calc Pharmacy 90.42 Normal [facility] Comment on above: Performed By: #### P T, HS TROP, CBC, CK, MG, CMP, BNP, PTT #### [address] GFR/1.73 sq M.predicted MDRD (S/P/Bld) [Vol rate/Area] mL/min/{1.73_m2} Normal [facility] Comment on above: Performed By: #### P T, HS TROP, CBC, CK, MG, CMP, BNP, PTT #### [address] Globulin (S) [Mass/Vol] 3.3 g/dL Normal [facility] Comment on above: Performed By: #### P T, HS TROP, CBC, CK, MG, CMP, BNP, PTT #### [address] Glucose [Mass/Vol] 116 mg/dL High 70-100 [facility] Comment on above: Result Comment: [facility][note 3] Glucose Reference Range is dependent on time and content of last meal. Glucose of more than 200 mg/dL in a nonstressed, ambulatory subject supports the diagnosis of Diabetes Mellitus. ADA recommended reference range Performed By: #### P T, HS TROP, CBC, CK, MG, CMP, BNP, PTT #### [address] Potassium [Moles/Vol] 4.2 mmol/L Normal 3.5-5.1 [facility] Comment on above: Performed By: #### P T, HS TROP, CBC, CK, MG, CMP, BNP, PTT #### [address] Protein [Mass/Vol] 7.9 g/dL Normal 6.4-8.9 [facility] Comment on above: Performed By: #### P T, HS TROP, CBC, CK, MG, CMP, BNP, PTT #### [address] Sodium [Moles/Vol] 137 mmol/L Normal 136-145 [facility] Comment on above: Performed By: #### P T, HS TROP, CBC, CK, MG, CMP, BNP, PTT #### [address] Urea nitrogen [Mass/Vol] 17 mg/dL Normal 7-25 [facility] Comment on above: Performed By: #### P T, HS TROP, CBC, CK, MG, CMP, BNP, PTT #### [place] [address] [place] Creatine Kinaseon 01-19-2024 CK [Catalytic activity/Vol] 67 U/L Normal 30-223 [facility] Comment on above: Performed By: #### P T, HS TROP, CBC, CK, MG, CMP, BNP, PTT ####[facility] [place] [id number] [facility] ECG 12 lead ECGon 10-21-2023 ECG 12 lead ECG [facility] [place] [address] Electrocardiograph Report Signed Patient: Vick Mercado MR#: [id number] : 1955 Acct:[id number] Age/Sex: 68 / M ADM Date: 10/21/23 Loc: Room: [address] [place] [address] Type: ADM IN Attending Dr: Bon Harman [...] Steven Aldridge MD 10/21/23 1930 Normal [facility] Magnesiumon 10-21-2023 Magnesium [Mass/Vol] 2.3 mg/dL Normal 1.9-2.7 [facility] Comment on above: Result Comment: PERF ORMED BY: [place] [address] PATHOLOGIST SUGAR MIXER ION THOMPSON M.D. Performed By: #### P T, HS TROP, CBC, CK, MG, CMP, BNP, PTT ####[facility] [place] [id number] [place] Partial Thromboplastin Timeo n 10-21-2023 aPTT Coag (Bld) [Time] 45.0 s High 25.1-36.5 [facility] Comment on above: Result Comment: A he matocrit value greater than 55% may lead to inaccurate results in coagulation testing. Patients having hematocrit values >55% require a special collection tube for coagulation studies. Please contact the laboratory at [phone] for redraw instructions. PERFORMED BY: [place] [id number] PATHOLOGIST SUGAR MIXER ION THOMPSON M.D. Performed By: #### P T, HS TROP, CBC, CK, MG, CMP, BNP, PTT #### [place] [id number] [facility] Prothrombin Time INRon 10-21 INR Coag (PPP) [Relative time] 3.2 {INR} Normal [facility] Comment on above: Result Comment: [...] 3 - 4.5 Performed By: #### P T, HS TROP, CBC, CK, MG, CMP, BNP, PTT #### [place] [id number] [facility] PT Coag (PPP) [Time] 35.4 s High 9.0-12.9 [facility] Comment on above: Result Comment: A he matocrit value greater than 55% may lead to inaccurate results in coagulation testing. Patients having hematocrit values >55% require a special collection tube for coagulation studies. Please contact the laboratory at [phone] for redraw instructions. Performed By: #### P T, HS TROP, CBC, CK, MG, CMP, BNP, PTT #### [place] [id number] [facility] Troponin I High Sensitivityo n 10-21-2023 Troponin I High Sensitivity 9.4 pg/mL Normal 0.0-20.0 [facility] Comment on above: Result Comment: PERF ORMED BY: [place] [id number] PATHOLOGIST SUGAR MIXER ION THOMPSON M.D. Performed By: #### P T, HS TROP, CBC, CK, MG, CMP, BNP, PTT ####[facility] [id number] [place] [id number] [facility] XR chest 1V portableon 10-21 XR chest 1V portable [facility] Main [place] [address] [place] [address] XRay Report Signed Patient: Vick Mercado MR#: [id number] : 1955 Acct:[id number] Age/Sex: 68 / M ADM Date: 10/21/23 Loc: ER Room: Type: [facility] ER Attending Dr: Copies to: Steven Aldridge MD Ordering Provider: Steven Aldridge MD Date of Service: 10/21/23 XR/XR chest 1V portable: Shortness of Breath/Dyspnea Plain film chest Single view HISTORY: Shortness of breath for 3 days COMPARISON: 02/23/2023 FINDINGS: SUPPORT DEVICES: None POSTSURGICAL CHANGES: Cervical spine fixation hardware. Wayne screw in the left humeral head. HEART: Within normal limits PULMONARY HIWOT: Within normal limits MEDIASTINUM: Unremarkable LUNGS AND PLEURA: No acute lung process, pleural effusion or pneumothorax identified. BONY STRUCTURES: Thoracic spondylosis ADDITIONAL FINDINGS None XR/XR chest 1V portable IMPRESSION: No acute process. Impression dictated by: Antoni Pizano M.D.10/21/2023 3:35 PM Dictation Location: [place] [address] Transcribed By: [facility] 10/21/231534 Dictated By: Antoni Pizano DO 10/21/231533 Signed By: 10/21/23 153 Normal [facility] Basophils Auto (Bld) [#/Vol] Ordered By: Jairo Wild on 09-01-2023 Basophils (Bld) [#/Vol] 0.1 10*3/uL 0.0-0.2 [facility] Basophils/100 WBC Auto (Bld) Ordered By: Jairo Wild on 09-01-2023 Basophils/100 WBC (Bld) 0.6 % . [facility] Calcium [Mass/volume] in Ser um or PlasmaOrdered By: Jairo Wild on 09-01-2023 Calcium [Mass/Vol] 9.5 mg/dL 8.6-10.3 [facility] Carbon dioxide, total [Moles /volume] in Serum or PlasmaOrdered By: Jairo Wild on 09-01-2023 CO2 [Moles/Vol] 25.9 mmol/L 21.0-31.0 [facility] Chloride [Moles/volume] in S zina or PlasmaOrdered By: Jairo Wild on 09-01-2023 Chloride [Moles/Vol] 103 mmol/L 98-107 [facility] Creatinine [Mass/volume] in Serum or PlasmaOrdered By: Jairo Wild on 09-01-2023 Creatinine [Mass/Vol] 0.78 mg/dL 0.70-1.30 [facility] Eosinophils Auto (Bld) [#/Vo l]Ordered By: Jairo Wild on 09-01-2023 Eosinophils (Bld) [#/Vol] 0.4 10*3/uL 0.0-0.45 [facility] Eosinophils/100 WBC Auto (Bl d)Ordered By: Jairo Wild on 09-01-2023 Eosinophils/100 WBC (Bld) 4.0 % . [facility] Erythrocyte distribution wid th Auto (RBC) [Ratio]Ordered By: Jairo Wild on 09-01-2023 Erythrocyte distribution width (RBC) [Ratio] 12.5 % 12.0-14.8 [facility] Glucose [Mass/volume] in Ser um or PlasmaOrdered By: Jairo Wild on 09-01-2023 Glucose [Mass/Vol] 133 mg/dL 70-100 [facility] Comment on above: ADA recommended refe rence rangeRandom Glucose Reference Range is dependent on time and content of last meal. Glucose of more than 200 mg/dL in a nonstressed, ambulatory subject supports the diagnosis of Diabetes Mellitus. Hematocrit Auto (Bld) [Volum e fraction]Ordered By: Jairo Wild on 09-01-2023 Hematocrit (Bld) [Volume fraction] 43.5 % 38.8-50.0 [facility] Hemoglobin [Mass/volume] in BloodOrdered By: Jairo Wild on 09-01-2023 Hemoglobin (Bld) [Mass/Vol] 14.9 g/dL 13.0-17.0 [facility] Leukocytes [#/volume] correc rehan for nucleated erythrocytes in Blood by Automated counOrdered By: Jairo Wild on 09-01-2023 WBC corrected for nucl RBC Auto (Bld) [#/Vol] 10.4 10*3/uL 4.1-10.5 [facility] Lymphocytes Auto (Bld) [#/Vo l]Ordered By: Jairo Wild on 09-01-2023 Lymphocytes (Bld) [#/Vol] 2.5 10*3/uL 1.00-4.8 [facility] Lymphocytes/100 WBC Auto (Bl d)Ordered By: Jairo Wild on 09-01-2023 Lymphocytes/100 WBC (Bld) 24.6 % . [facility] MCH Auto (RBC) [Entitic mass ]Ordered By: Jairo Wild on 09-01-2023 MCH (RBC) [Entitic mass] 31.5 pg 27.5-35.2 [facility] MCHC Auto (RBC) [Mass/Vol]Or dered By: Jairo Wild on 09-01-2023 MCHC (RBC) [Mass/Vol] 34.2 g/dL 32.5-35.6 [facility] MCV Auto (RBC) [Entitic vol] Ordered By: Jairo Wild on 09-01-2023 MCV (RBC) [Entitic vol] 92.2 fL 83.5-101 [facility] Monocytes Auto (Bld) [#/Vol] Ordered By: Jairo Wild on 09-01-2023 Monocytes (Bld) [#/Vol] 1.0 10*3/uL 0.0-0.8 [facility] Monocytes/100 WBC Auto (Bld) Ordered By: Jairo Wild on 09-01-2023 Monocytes/100 WBC (Bld) 9.7 % . [facility] Neutrophils Auto (Bld) [#/Vo l]Ordered By: Jairo Wild on 09-01-2023 Neutrophils (Bld) [#/Vol] 6.3 10*3/uL 1.8-7.7 [facility] Neutrophils/100 WBC Auto (Bl d)Ordered By: Jairo Wild on 09-01-2023 Neutrophils/100 WBC (Bld) 61.1 % . [facility] No Panel InformationOrdered By: Jairo Wild on 09-01-2023 Estimated GFR (CKD-EPI) > 60.0 mL/Min [facility] Creatinine Clearance (Chem N/A [facility] Nucleated erythrocytes [Pres ence] in Blood by Automated countOrdered By: Jairo Wild on 09-01-2023 Nucleated RBC Auto Ql (Bld) 0.1 /100{WBC} 0-0.5 [facility] Platelet mean volume Auto (B ld) [Entitic vol]Ordered By: Jairo Wild on 09-01-2023 Platelet mean volume (Bld) [Entitic vol] 8.0 fL 6.6-10.1 [facility] Platelets Auto (Bld) [#/Vol] Ordered By: Jairo Wild on 09-01-2023 Platelets (Bld) [#/Vol] 235 10*3/uL 150-450 [facility] Potassium [Moles/volume] in Serum or PlasmaOrdered By: Jairo Wild on 09-01-2023 Potassium [Moles/Vol] 4.1 mmol/L 3.5-5.1 [facility] RBC Auto (Bld) [#/Vol]Ordere d By: Jairo Wild on 09-01-2023 RBC (Bld) [#/Vol] 4.72 10*6/uL 3.90-5.60 [facility] Serum or plasma anion gap de terminationOrdered By: Jairo Wild on 09-01-2023 Anion gap [Moles/Vol] 12.2 mmol/L 6.0-15.0 [facility] Sodium [Moles/volume] in Ser um or PlasmaOrdered By: Jairo Wild on 09-01-2023 Sodium [Moles/Vol] 137 mmol/L 136-145 [facility] Urea nitrogen [Mass/volume] in Serum or PlasmaOrdered By: Jairo Ordazcarlos on 09-01-2023 Urea nitrogen [Mass/Vol] 22 mg/dL 7-25 [facility] WBC Auto (Bld) [#/Vol]Ordere d By: Jairo Robbinsjake on 09-01-2023 WBC (Bld) [#/Vol] 10.4 10*3/uL 4.1-10.5 [facility] HEART BLOOD POOL EJECTION FRACTION WALL MOTION (MUGA)on 08-24-2023 [place] HEART BLOOD POOL EJECTION FRACTION WALL MOTION (MUGA) Interpreted By: John Pena and Giannuzzi Michael STUDY: MUGA Performing facility: [facility], [address] [place] [address], [address], [address] Provider: Karlo Aldridge RN, MANAGER DEVELOPMENT PCP: Dr. Gabino Joseph Supervising provider: John Pena MD INDICATION: NICM HISTORY: Gender: M; Age: 68 y/o ; Height: HT 177.8 cm cm; Weight: WT 94.802 kg kg. CAD; HTN; CHF Quit smoking 15 years ago. Cardiac catheterization on 2022. COMPARISON: Previous nuclear testing completed [id number] Muga EF=33% at [facility]. Previous echo testing completed [id number] EF=40-45% at [facility]. ACCESSION NUMBER(S): [id number] ORDERING CLINICIAN: KARLO ALDRIDGE TECHNIQUE: The patient received an IV injection of 3 ml of stannous pyrophosphate (PYP) using the in-vivo method of labeling red blood cells. After 30 minutes the patient received another IV injection of 25.7 mCi of Technetium 99m pertechnetate. Planar images of the left ventricle were obtained in the MAORI 45, Lt Lateral and anterior projections. FINDINGS: [...] John Pena 08/24/2023 5:04 PM Dictation workstation: [id number] [facility] Falls Screening (Age 18+)on 06-13-2023 Fall risk assessment a) No falls within the last year LUIZ-Mariza Sutherland 250 DO Work Phone: Falls Screening (Age 18+) Adult LUIZ-Mariza Sutherland 250 DO Work Phone: Office Visit [...] A DAY Basic Metabolic Panel; Status:Active; Requested for:[id number]; IO EKG Electrocardiogram- 12 Lead; Status:Complete; Done: [id number] IO MUGA (Nuclear Testing); Status:Hold For - Scheduling; Requested for:[id number]; Radiologist to Determine Optimal Study : Y What are the patient's signs and symptoms? : ISLAS, fatigue Overweight with body mass index (BMI) of 29 to 29.9 in adult Healthy Weight Tips; Status:Complete; Done: [id number] Patient Instructions PLAN: Through informed decision making [...] a day. 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 He denies any dyspnea on exertion, [...] TABLET Sherin (more content not included)... Normal [facility] MUGA SCAN INJECTIONon [facility] MUGA SCAN INJECTION Patient Name: VICK MERCADO STUDY: MUGA Performing facility: [facility], [address] [place] [address], [address], [place] [address] [facility] Provider: Balbir Lucio DO, [facility] PCP: Dr. Gabino Corbin Supervising provider: John Pena MD INDICATION: CHF Non ischemic cardiomyopathy HISTORY: Gender: M; Age: 68 y/o ; Height: 0 cm; Weight: 0 kg. HTN; CHF Quit smoking 15 years ago. Cardiac catheterization on 2022. COMPARISON: No comparison. Previous echo testing [place] [id number] [place]40-45[place] [facility] ACCESSION NUMBER(S): [id number]; [id number] ORDERING CLINICIAN: JORGE LUCIO TECHNIQUE: The patient received an IV injection of 3 ml of stannous pyrophosphate (PYP) using the in-vivo method of labeling red blood cells. After 15 minutes the patient received another IV injection of 26.5 mCi of Technetium 99m pertechnetate. Planar images of the left ventricle were obtained in the MAORI 45, Lt Lateral and anterior projections. FINDINGS: [...] Electronically signed by: KINGS BANEGAS MD Normal [facility] No Panel Informationon 05-05 Normal -[facility] erick 250 DO Work Phone: Office Visit [...] For - Scheduling,Retrospective By Protocol Authorization; Requested for:[id number]; Radiologist to Determine Optimal Study : Y What are the patient's signs and symptoms? : chf, non-ischemic cardiomyopathy Basic Metabolic Panel; Status:Active - Retrospective Authorization; Requested for:[id number]; Renew: Carvedilol 6.25 MG Oral Tablet; TAKE 1 TABLET BY MOUTH TWICE DAILY WITH MEALS Renew: Spironolactone 25 MG Oral Tablet; TAKE 0.5 TABLET Daily CHF (NYHA class II, ACC/AHA stage C), Nonischemic cardiomyopathy, Shortness of breath Brain Natriuretic Peptide BNP; Status:Active - Retrospective Authorization; Requested for:[id number]; Overweight with body mass index (BMI) of 29 to 29.9 in adult Healthy Weight Tips; Status:Complete - Retrospective Authorization; Done: [id number] Some eating tips that can help you lose weight.; Status:Complete - Retrospective Authorization; Done: [id number] Patient Instructions Please bring all medicines, vitamins, [...] negative for complaint. Vitals Vital Signs Recorded: 15Apr2023 11:53AM Heart Rate60, L Radial Dlkvioyb434, LUE, Sitting Lpzkwxvlj73, LUE, Sitting Height5 ft 10 in Kvcpna206 lb BMI Qfadgrpzrh17.99 kg/m2 BSA Calculated2.13 Tobacco Useb) No PHQ-2 [...] Exam Constituti (more content not included)... Normal [facility].on 023 Adult depression screening assessment No [facility] [employer] 250 DO Work Phone: Fall risk assessment a) No falls within the last year [facility] [employer] 250 DO Work Phone: Tobacco use status CP b) No [facility] [employer] 250 DO Work Phone: Activated partial thrombopla stin time (aPTT) in platelet poor plasma by coagulation aOrdered By: Papo Lucio on 03-02-2023 aPTT Coag (PPP) [Time] 30.5 s 25.1-36.5 [facility] Cholesterol [Mass/volume] in Serum or PlasmaOrdered By: Papo Lucio on 03-02-2023 Cholesterol [Mass/Vol] 225 mg/dL 140-200 [facility] Comment on above: Chol less than 200 m g/dl low riskChol 201-239 mg/dl borderline riskChol 240 mg/dl and greater high risk Cholesterol in LDL Calc [Mas s/Vol]Ordered By: Papo Lucio on 03-02-2023 Cholesterol in LDL [Mass/Vol] 148 mg/dL 0-100 [facility] Comment on above: LDL ATP III CLASSIFI CATIONLDL less than 100 mg/dL OptimalLDL 100-129 mg/dL Near or above optimalLDL 130-159 mg/dL Borderline highLDL 160-189 mg/dL HighLDL greater than 189 mg/dL Very high Cholesterol in VLDL Calc [Ma ss/Vol]Ordered By: Papo Lucio on 03-02-2023 Cholesterol in VLDL [Mass/Vol] 34 mg/dL [facility] Laboratory - Chemistry and C hemistry - challengeon 03-02-2023 Cholesterol [Mass/Vol] 225\S\225 above hig h threshold 140-200 [facility] [employer] 250 DO Work Phone: Comment on above: Chol less than 200 m g/dl low risk Chol 201-239 mg/dl borderline risk Chol 240 mg/dl and greater high risk Cholesterol in LDL [Mass/Vol] 148\S\148 above high threshold 0-100 [facility] [employer] 250 DO Work Phone: Comment on above: LDL ATP III CLASSIFI CATION LDL less than 100 mg/dL Optimal LDL 100-129 mg/dL Near or above optimal LDL 130-159 mg/dL Borderline high LDL 160-189 mg/dL High LDL greater than 189 mg/dL Very high Laboratory - CoagulationOrde red By: Papo Lucio on 03-02-2023 PT Coag (PPP) [Time] 12.0 s 9.0-12.9 [facility] No Panel Informationon 03-02 30.5\S\30.5 Normal 25.1-36.5 [facility] [employer] 250 DO Work Phone: Comment on above: PERFORMED BY:[facility] [place] [id number] MEDICAL DIRECTORION THOMPSON M.D. 1.0\S\1.0 Normal [facility] erick 250 DO Work Phone: Comment on [...] valves: 3 - 4.5 12.0\S\12.0 Normal 9.0-12.9 [facility] erick 250 DO Work Phone: 5.2\S\5.2 Normal <5.0 [facility] 250 DO Work Phone: Comment on above: PERFORMED BY:[facility] [place], [place] [phone] MEDICAL DIRECTORION THOMPSON M.D. 34\S\[address] [facility] 250 DO Work Phone: 171\S\171 above high threshold 0-149 [facility] 250 DO Work Phone: Comment on above: TRIG ATP III CLASSIF ICATION TRIG less than 150 mg/dL Normal TRIG 150-199 mg/dL Borderline high TRIG 200-500 mg/dL High TRIG greater than 500 mg/dL Very high Standard traceable to the Center for Disease Conrtrol and Prevention (CDC) test method. 43\S\43 Normal 29-71 [facility] erick 250 DO Work Phone: Comment on above: HDL CHOL ATP-III CLA SSIFICATION Cardiovascular Risk HDL > or equal to 60 mg/dL LOW HDL < 40 mg/dL HIGH Platelet poor plasma interna tional normalized ratio (INR) by coagulation assay (relatOrdered By: Papo Lucio on 03-02-2023 INR Coag (PPP) [Relative time] 1.0 {INR} [facility] Comment on above: INR Therapeutic Rang [...] Cholesterol in HDL [Mass/Vol] 43 mg/dL 29-71 [facility] Comment on above: HDL CHOL ATP-III CLA SSIFICATION Cardiovascular RiskHDL > or equal to 60 mg/dL LOWHDL < 40 mg/dL HIGH Serum or plasma total choles terol/high density lipoprotein (HDL) cholesterol mass ratOrdered By: Papo Lucio on 03-02-2023 Cholesterol.total/Chol esterol in HDL [Mass ratio] 5.2 {ratio} <5.0 [facility] Triglyceride [Mass/volume] i n Serum or PlasmaOrdered By: Papo Lucio on 03-02-2023 Triglyceride [Mass/Vol] 171 mg/dL 0-149 [facility] Comment on above: TRIG ATP III CLASSIF ICATIONTRIG less than 150 mg/dL NormalTRIG 150-199 mg/dL Borderline highTRIG 200-500 mg/dL High TRIG greater than 500 mg/dL Very highStandard traceable to the Center for Disease Conrtrol and Prevention (CDC) test method. CBC AUTO DIFFon 03-01-2023 BASO # 0.1 103/ul Normal 0.0-0.1 [facility] Comment on above: Performed By: #### C BC #### [facility] [address] [address] [address] Will Bain Basophils/100 WBC (Bld) 0.6 % Normal 0.2-2.0 [facility] Comment on above: Performed By: #### C BC #### [facility] [address] [address] [address] Will Bain EO # 0.3 103/ul Normal 0.0-0.7 [facility] Comment on above: Performed By: #### C BC #### [facility] [address] [place] [address] Dr. Will Bain Eosinophils/100 WBC (Bld) 3.5 % Normal 0.9-7.0 [facility] Comment on above: Performed By: #### C BC #### [facility] [address] [place] [address] Dr. Will Bain Erythrocyte distribution width (RBC) [Ratio] 12.9 % Normal 11.0-15.0 [facility] Comment on above: Performed By: #### C BC #### [facility] [address] [place] [address] Dr. Will Bain Hematocrit (Bld) [Volume fraction] 40.4 % Critically low 42.0-54.0 [facility] Comment on above: Performed By: #### C BC #### [facility] [address] [place] [address] Dr. Will Bain Hemoglobin (Bld) [Mass/Vol] 13.5 g/dL Critically low 14.0-18.0 [facility] Comment on above: Performed By: #### C BC #### [facility] [address] [place] [address] Dr. Will Bain IG # 0.02 10e3/ul Normal 0.00-0.03 [facility] Comment on above: Performed By: #### C BC #### [facility] [address] [place] [address] Dr. Will Bain IG % 0.2 % Normal 0.0-0.5 [facility] Comment on above: Performed By: #### C BC #### [facility] [address] [place] [address] Dr. Will Bain LYMPH # 2.3 103/ul Normal 1.2-3.8 [facility] Comment on above: Performed By: #### C BC #### [facility] [address] [place] [address] Dr. Will Bain Lymphocytes/100 WBC (Bld) 27.8 % Normal 20.5-60.0 [facility] Comment on above: Performed By: #### C BC #### [facility] [address] [place] [address] Dr. Will Bain MANUAL DIFF REQ NO Normal [facility] Comment on above: Performed By: #### C BC #### [facility] [address] [place] [address] Dr. Will Bain MCH (RBC) [Entitic mass] 29.9 pg Normal 25.9-34.0 [facility] Comment on above: Performed By: #### C BC #### [facility] [address] [place] [address] Dr. Will Bain MCHC (RBC) [Mass/Vol] 33.4 g/dL Normal 29.9-35.2 [facility] Comment on above: Performed By: #### C BC #### [facility] [address] [place] [address] Dr. Will Bain MCV (RBC) [Entitic vol] 89.6 fL Normal 80.0-94.0 [facility] Comment on above: Performed By: #### C BC #### [facility] [address] [place] [address] Dr. Will Bain MONO # 0.9 103/ul Critically high 0.3-0.8 [facility] Comment on above: Performed By: #### C BC #### [facility] [address] [place] [address] Dr. Will Bain Monocytes/100 WBC (Bld) 10.3 % Normal 1.7-12.0 [facility] Comment on above: Performed By: #### C BC #### [facility] [address] [place] [address] Dr. Will Bain NEUT # 4.7 103/ul Normal 1.4-6.5 [facility] Comment on above: Performed By: #### C BC #### [facility] [address] [place] [address] Dr. Will Bain Neutrophils/100 WBC (Bld) 57.6 % Normal 43.0-75.0 [facility] Comment on above: Performed By: #### C BC #### [facility] [address] [address] [address] Will Bain Platelet mean volume (Bld) [Entitic vol] 9.3 fL Critically low 9.5-13.5 [facility] Comment on above: Performed By: #### C BC #### [facility] [address] [address] [address] Will Bain PLT 273 103/ul Normal 150-450 [facility] Comment on above: Performed By: #### C BC #### [facility] [address] [address] [address] Will Bain RBC 4.51 106/ul Critically low 4.70-6.10 [facility] Comment on above: Performed By: #### C BC #### [facility] [address] [place] [address] Dr. Will Bain WBC 8.2 103/ul Normal 4.0-11.0 [facility] Comment on above: Performed By: #### C BC #### [facility] [address] [place] [address] Dr. Will Bain MG MAMM DIAGNOSTIC 3D RO CA Don 03-01-2023 MG MAMM DIAGNOSTIC 3D RO CAD Patient: VICK MERCADO Exam Date: 03/01/2023 : 1955 Gender:M Ordering : DR JAIRO CORBIN D.O. Admission #: [id number] Family : Order #: [id number] CLICK HERE TO VIEW EXAM RADIOLOGY REPORT PROCEDURE: MAMMOGRAM DIAGNOSTIC 3D BILATERAL CAD, 03/01/2023, 10:22 ULTRASOUND BREAST LEFT LIMITED, 03/01/2023, 11:05 COMPARISON: None. INDICATIONS: Hypertrophy of breast Calculator Name NCI Breast Cancer Risk Assessment Tool 5 Year Breast Cancer Risk Not Applicable. Lifetime Breast Cancer Risk Not Applicable. Personal Breast Cancer No Personal Ovarian Cancer No Treatments None Family Cancers None LOCATION: [facility] BREAST COMPOSITION: Almost entirely fatty. FINDINGS: DIAGNOSTIC [...] MD on 03/01/2023 at 12:13 Normal [facility] PROF CHEM 8 (BAS METB)on Anion gap [Moles/Vol] 13.8 mmol/L Normal [facility] Comment on above: Performed By: #### A LT, AST, BMP #### [facility] [address] [place] [address] Dr. Will Bain Calcium [Mass/Vol] 9.0 mg/dL Normal 8.5-10.1 [facility] Comment on above: Performed By: #### A LT, AST, BMP #### [facility] [address] [place] [address] Dr. Will Bain Chloride [Moles/Vol] 101 mmol/L Normal 98-107 [facility] Comment on above: Performed By: #### A LT, AST, BMP #### [facility] [address] [place] [address] Dr. Will Bain CO2 [Moles/Vol] 26.6 mmol/L Normal 21.0-32.0 [facility] Comment on above: Performed By: #### A LT, AST, BMP #### [facility] [address] [place] [address] Dr. Will Bain Creatinine [Mass/Vol] 0.92 mg/dL Normal 0.70-1.30 [facility] Comment on above: Performed By: #### A LT, AST, BMP #### [facility] [address] [place] [address] Dr. Will Bain EGFR-AF COMORAN >60 Normal >=60 [facility] Comment on above: Performed By: #### A LT, AST, BMP #### [facility] [address] [place] [address] Dr. Will Bain EGFR-NON AF COMORAN >60 Normal >=60 [facility] Comment on above: Performed By: #### A LT, AST, BMP #### [facility] [address] [address] [address] Will Bain Glucose [Mass/Vol] 121 mg/dL Critically high 74-106 T [facility] Comment on above: Performed By: #### A LT, AST, BMP #### [facility] [address] [address] [address] Will Bain Potassium [Moles/Vol] 4.4 mmol/L Normal 3.5-5.1 [facility] Comment on above: Performed By: #### A LT, AST, BMP #### [facility] [address] [place] [address] Dr. Will Bain Sodium [Moles/Vol] 137 mmol/L Normal 136-145 [facility] Comment on above: Performed By: #### A LT, AST, BMP #### [facility] [address] [place] [address] Dr. Will Bain Urea nitrogen [Mass/Vol] 21.0 mg/dL Critically high 7.0-18.0 [facility] Comment on above: Performed By: #### A LT, AST, BMP #### [facility] [address] [place] [address] Dr. Will Bain Urea nitrogen/Creatinine [Mass ratio] 22.8 mg/mg Normal [facility] Comment on above: Performed By: #### A LT, AST, BMP #### [facility] [address] [place] [address] Dr. Will Bain SGOTon 03-01-2023 AST [Catalytic activity/Vol] 24 U/L Normal 15-37 [facility] Comment on above: Performed By: #### A LT, AST, BMP ####[facility] [id number] [address]Dr. Will Bain SGPTon 03-01-2023 ALT [Catalytic activity/Vol] 31 U/L Normal 16-63 [facility] Comment on above: Performed By: #### A LT, AST, BMP #### [facility] [address] [place], [place] [address] Dr. Will Bain US BREAST LEFT LIMITEDon US BREAST LEFT LIMITED Patient: VICK OLIVEIRA AM Exam Date: 03/01/2023 : 1955 Gender:M Ordering : DR JAIRO CORBIN D.O. Admission #: [id number] Family : Order #: [id number] CLICK HERE TO VIEW EXAM RADIOLOGY REPORT PROCEDURE: MAMMOGRAM DIAGNOSTIC 3D BILATERAL CAD, 03/01/2023, 10:22 ULTRASOUND BREAST LEFT LIMITED, 03/01/2023, 11:05 COMPARISON: None. INDICATIONS: Hypertrophy of breast Calculator Name NCI Breast Cancer Risk Assessment Tool 5 Year Breast Cancer Risk Not Applicable. Lifetime Breast Cancer Risk Not Applicable. Personal Breast Cancer No Personal Ovarian Cancer No Treatments None Family Cancers None LOCATION: [facility] BREAST COMPOSITION: Almost entirely fatty. FINDINGS: DIAGNOSTIC [...] MD on 03/01/2023 at 12:13 Normal [facility] Calcium [Mass/volume] in Ser um or PlasmaOrdered By: Brad Livingston on 02-25-2023 Calcium [Mass/Vol] 9.3 mg/dL 8.6-10.3 [facility] Carbon dioxide, total [Moles /volume] in Serum or PlasmaOrdered By: Brad Livingston on 02-25-2023 CO2 [Moles/Vol] 28.4 mmol/L 21.0-31.0 [facility] Chloride [Moles/volume] in S zina or PlasmaOrdered By: Brad Livingston on 02-25-2023 Chloride [Moles/Vol] 100 mmol/L 98-107 [facility] Creatinine [Mass/volume] in Serum or PlasmaOrdered By: Brad Livingston on 02-25-2023 Creatinine [Mass/Vol] 0.81 mg/dL 0.70-1.30 [facility] Glucose [Mass/volume] in Ser um or PlasmaOrdered By: Brad Livingston on 02-25-2023 Glucose [Mass/Vol] 110 mg/dL 70-100 [facility] Comment on above: ADA recommended refe rence rangeRandom Glucose Reference Range is dependent on time and content of last meal. Glucose of more than 200 mg/dL in a nonstressed, ambulatory subject supports the diagnosis of Diabetes Mellitus. Magnesium [Mass/volume] in S zina or PlasmaOrdered By: Brad Livingston on 02-25-2023 Magnesium [Mass/Vol] 2.3 mg/dL 1.9-2.7 [facility] No Panel InformationOrdered By: Brad Livingston on 02-25-2023 Estimated GFR (CKD-EPI) > 60.0 mL/Min [facility] Creatinine Clearance (Chem 90.12 [facility] Potassium [Moles/volume] in Serum or PlasmaOrdered By: Brad Livingston on 02-25-2023 Potassium [Moles/Vol] 4.3 mmol/L 3.5-5.1 [facility] Serum or plasma anion gap de terminationOrdered By: Brad Livingston on 02-25-2023 Anion gap [Moles/Vol] TNP [facility] Comment on above: Test not performed Sodium [Moles/volume] in Ser um or PlasmaOrdered By: Brad Livingston on 02-25-2023 Sodium [Moles/Vol] 137 mmol/L 136-145 [facility] Urea nitrogen [Mass/volume] in Serum or PlasmaOrdered By: Brad Livingston on 02-25-2023 Urea nitrogen [Mass/Vol] 25 mg/dL 7-25 [facility] Basophils Auto (Bld) [#/Vol] Ordered By: Mirna Aldridge on 02-24-2023 Basophils (Bld) [#/Vol] 0.1 10*3/uL 0.0-0.2 [facility] Basophils/100 WBC Auto (Bld) Ordered By: Mirna Aldridge on 02-24-2023 Basophils/100 WBC (Bld) 0.6 % . [facility] Eosinophils Auto (Bld) [#/Vo l]Ordered By: Mirna Aldridge on 02-24-2023 Eosinophils (Bld) [#/Vol] 0.3 10*3/uL 0.0-0.45 [facility] Eosinophils/100 WBC Auto (Bl d)Ordered By: Mirna Aldridge on 02-24-2023 Eosinophils/100 WBC (Bld) 3.0 % . [facility] Erythrocyte distribution wid th Auto (RBC) [Ratio]Ordered By: Mirna Aldridge on 02-24-2023 Erythrocyte distribution width (RBC) [Ratio] 13.3 % 12.0-14.8 [facility] Hematocrit Auto (Bld) [Volum e fraction]Ordered By: Mirna Aldridge on 02-24-2023 Hematocrit (Bld) [Volume fraction] 39.3 % 38.8-50.0 [facility] Hemoglobin [Mass/volume] in BloodOrdered By: Mirna Aldridge on 02-24-2023 Hemoglobin (Bld) [Mass/Vol] 13.4 g/dL 13.0-17.0 [facility] Leukocytes [#/volume] correc rehan for nucleated erythrocytes in Blood by Automated counOrdered By: Mirna Aldridge on 02-24-2023 WBC corrected for nucl RBC Auto (Bld) [#/Vol] 11.5 10*3/uL 4.1-10.5 [facility] Lymphocytes Auto (Bld) [#/Vo l]Ordered By: Mirna Aldridge on 02-24-2023 Lymphocytes (Bld) [#/Vol] 2.4 10*3/uL 1.00-4.8 [facility] Lymphocytes/100 WBC Auto (Bl d)Ordered By: Mirna Aldridge on 02-24-2023 Lymphocytes/100 WBC (Bld) 20.9 % . [facility] MCH Auto (RBC) [Entitic mass ]Ordered By: Mirna Aldridge on 02-24-2023 MCH (RBC) [Entitic mass] 30.2 pg 27.5-35.2 [facility] MCHC Auto (RBC) [Mass/Vol]Or dered By: Mirna Aldridge on 02-24-2023 MCHC (RBC) [Mass/Vol] 34.2 g/dL 32.5-35.6 [facility] MCV Auto (RBC) [Entitic vol] Ordered By: Mirna Aldridge on 02-24-2023 MCV (RBC) [Entitic vol] 88.4 fL 83.5-101 [facility] Monocytes Auto (Bld) [#/Vol] Ordered By: Mirna Aldridge on 02-24-2023 Monocytes (Bld) [#/Vol] 1.0 10*3/uL 0.0-0.8 [facility] Monocytes/100 WBC Auto (Bld) Ordered By: Mirna Aldridge on 02-24-2023 Monocytes/100 WBC (Bld) 9.1 % . [facility] Neutrophils Auto (Bld) [#/Vo l]Ordered By: Mirna Aldridge on 02-24-2023 Neutrophils (Bld) [#/Vol] 7.6 10*3/uL 1.8-7.7 [facility] Neutrophils/100 WBC Auto (Bl d)Ordered By: Mirna Aldridge on 02-24-2023 Neutrophils/100 WBC (Bld) 66.4 % . [facility] Nucleated erythrocytes [Pres ence] in Blood by Automated countOrdered By: Mirna Aldridge on 02-24-2023 Nucleated RBC Auto Ql (Bld) 0.1 /100{WBC} 0-0.5 [facility] Platelet mean volume Auto (B ld) [Entitic vol]Ordered By: Mirna Aldridge on 02-24-2023 Platelet mean volume (Bld) [Entitic vol] 7.7 fL 6.6-10.1 [facility] Platelets Auto (Bld) [#/Vol] Ordered By: Mirna Aldridge on 02-24-2023 Platelets (Bld) [#/Vol] 267 10*3/uL 150-450 [facility] RBC Auto (Bld) [#/Vol]Ordere d By: Mirna Aldridge on 02-24-2023 RBC (Bld) [#/Vol] 4.44 10*6/uL 3.90-5.60 [facility] Troponin I.cardiac [Mass/vol ume] in Serum or Plasma by Detection limit <= 0.01 ng/Ordered By: Mirna Aldridge on 02-24-2023 Troponin I.cardiac DL <= 0.01 ng/mL [Mass/Vol] 27.8 pg/mL 0.0-20.0 [facility] WBC Auto (Bld) [#/Vol]Ordere d By: Mirna Aldridge on 02-24-2023 WBC (Bld) [#/Vol] 11.5 10*3/uL 4.1-10.5 [facility] Monocyte distribution width [Entitic volume] in Blood by AutomatedOrdered By: Shalom Azar on 02-23-2023 Monocyte distribution width Auto (Bld) [Entitic vol] 17.08 % 0.00-20.00 [facility] Natriuretic peptide B [Mass/ Vol]Ordered By: Shalom Azar on 02-23-2023 Natriuretic peptide B (Bld) [Mass/Vol] 532.0 pg/mL 5-[address] [facility] [address] SINUSES WO CONon 02-20-[address] SINUSES WO CON EXAMINATION: CT SINU [...] clear and well-aerated. Electronically authenticated by: ZARIA UNLU Date: 2023-02-19 18:32 Normal [facility] MRI BRAIN WO CONon MRI BRAIN WO CON EXAMINATION: MRI BRA [...] by: IVÁN BARBA Date: 2022-06-01 11:35 Normal [facility] TSHon 06-01-2022 TSH 2.078 uIU/mL Normal 0.358-3.74 0 [facility] Comment on above: Performed By: #### T SH #### [facility] [address] [place] [address] Dr. Will Bain VITAMIN B12on 06-01-2022 Cobalamin (Vitamin B12) [Mass/Vol] 514.0 pg/mL Normal 193.0-986. 0 [facility] Comment on above: Performed By: #### V ITB12 #### [facility] [address] [place] [address] Dr. Will Bain Vital Signs Date Time Vital Sign Value Performing Clinician Facility 11-30-2024 [id number] Body height 179.1 cm Mary Neal MD Work Phone: [facility] 11-30-2024 10:22-0500 Body mass index (BMI) [Ratio] 30.67 kg/m2 Mary Neal MD Work Phone: [facility] 11-30-2024 10:22-050 Body weight 98.34 kg Mary Neal MD Work Phone: [facility] 11-30-2024 10:22-0500 Diastolic blood pressure 90 mm[Hg] Mary Neal MD Work Phone: [facility] 11-30-2024 10:22-0500 Heart rate 66 /min Mary Neal MD Work Phone: [facility] 11-30-2024 10:22-0500 Systolic blood pressure 148 mm[Hg] Mary Neal MD Work Phone: [facility] 07-30-2024 11:51-0400 Body height 179.1 cm Mary Neal MD Work Phone: [facility] 07-30-2024 11:51-0400 Body mass index (BMI) [Ratio] 31.32 kg/m2 Mary Neal MD Work Phone: [facility] 07-30-2024 11:51-0400 Body weight 100.43 kg Mary Neal MD Work Phone: [facility] 07-30-2024 11:51-0400 Diastolic blood pressure 70 mm[Hg] Mary Neal MD Work Phone: [facility] 07-30-2024 11:51-0400 Heart rate 78 /min Mary Neal MD Work Phone: [facility] 07-30-2024 11:51-0400 Systolic blood pressure 126 mm[Hg] Mary Neal MD Work Phone: [facility] 06-22-2024 11:45-0400 Diastolic blood pressure 81 mm[Hg] DO Jairo Ball Work Phone: [facility] 06-22-2024 11:45-0400 Heart rate 62 /min DO Jairo Ball Work Phone: [facility] 06-22-2024 11:45-0400 Respiratory rate 16 /min DO Jairo Ball Work Phone: [facility] 06-22-2024 11:45-0400 SaO2% (BldA) [Mass fraction] 97 % DO Jairo Ball Work Phone: [facility] 06-22-2024 11:45-0400 Systolic blood pressure 120 mm[Hg] DO Jairo Ball Work Phone: [facility] 06-22-2024 10:10-0400 Body height 177.8 cm DO Jairo Ball Work Phone: [facility] 06-22-2024 10:10-0400 Body weight 97.97 kg DO Jairo Ball Work Phone: [facility] 05-30-2024 09:07-0400 Body height 177.8 cm [facility] 05-30-2024 09:07-0400 Body mass index (BMI) [Ratio] 31.4 kg/m2 [facility] 05-30-2024 09:07-0400 Body weight 99.5 kg [facility] 05-30-2024 09:07-0400 Diastolic blood pressure 83 mm[Hg] [facility] 05-30-2024 09:07-0400 Heart rate 60 /min [facility] 05-30-2024 09:07-0400 Respiratory rate 12 /min [facility] 05-30-2024 09:07-0400 Systolic blood pressure 169 mm[Hg] [facility] 05-01-2024 14:20-0400 Body height 177.8 cm [facility] 05-01-2024 14:20-0400 Body mass index (BMI) [Ratio] 31.7 kg/m2 [facility] 05-01-2024 14:20-0400 Body weight 100.35 kg [facility] 05-01-2024 14:20-0400 Diastolic blood pressure 81 mm[Hg] [facility] 05-01-2024 14:20-0400 Heart rate 68 /min [facility] 05-01-2024 14:20-0400 Respiratory rate 12 /min [facility] 05-01-2024 14:20-0400 Systolic blood pressure 144 mm[Hg] [facility] 01-31-2024 15:43-0400 Body height 177.8 cm [facility] 01-31-2024 15:43-0400 Body mass index (BMI) [Ratio] 31.1 kg/m2 [facility] 01-31-2024 15:43-0400 Body weight 98.48 kg [facility] 01-31-2024 15:43-0400 Diastolic blood pressure 91 mm[Hg] [facility] 01-31-2024 15:43-0400 Heart rate 73 /min [facility] 01-31-2024 15:43-0400 Respiratory rate 12 /min [facility] 01-31-2024 15:43-0400 Systolic blood pressure 161 mm[Hg] [facility] 01-30-2024 14:09-0400 Body height 177.8 cm Mary Neal MD Work Phone: [facility] 01-30-2024 14:09-0400 Body mass index (BMI) [Ratio] 31.57 kg/m2 Mary Neal MD Work Phone: [facility] 01-30-2024 14:09-0400 Body weight 99.79 kg Mary Neal MD Work Phone: [facility] 01-30-2024 14:09-0400 Diastolic blood pressure 62 mm[Hg] Mary Neal MD Work Phone: [facility] 01-30-2024 14:09-0400 Heart rate 58 /min Mary eNal MD Work Phone: [facility] 01-30-2024 14:09-0400 Systolic blood pressure 130 mm[Hg] Mary Neal MD Work Phone: [facility] 11-10-2023 13:53-0500 Body height 179.1 cm Mary Neal MD Work Phone: [facility] 11-10-2023 13:53-0500 Body mass index (BMI) [Ratio] 30.98 kg/m2 Mary Neal MD Work Phone: [facility] 11-10-2023 13:53-0500 Body weight 99.34 kg Mary Neal MD Work Phone: [facility] 11-10-2023 13:53-0500 Diastolic blood pressure 82 mm[Hg] Mary Neal MD Work Phone: [facility] 11-10-2023 13:53-0500 Heart rate 72 /min Mary Neal MD Work Phone: [facility] 11-10-2023 13:53-0500 Systolic blood pressure 120 mm[Hg] Mary Neal MD Work Phone: [facility] 11-01-2023 15:30-0500 Body height 177.8 cm DO Jairo Ball Work Phone: [facility] 11-01-2023 15:30-0500 Body weight 98.88 kg DO Jairo Ball Work Phone: [facility] 11-01-2023 15:30-0500 Diastolic blood pressure 77 mm[Hg] DO Jairo Ball Work Phone: [facility] 11-01-2023 15:30-0500 Systolic blood pressure 117 mm[Hg] DO Jairo Ball Work Phone: [facility] 10-24-2023 15:40-0500 Body temperature 97.6 [degF] DO Jairo Ball Work Phone: [facility] 10-24-2023 15:40-0500 Diastolic blood pressure 76 mm[Hg] DO Jairo Ball Work Phone: [facility] 10-24-2023 15:40-0500 Heart rate 65 /min DO Jairo Ball Work Phone: [facility] 10-24-2023 15:40-0500 Respiratory rate 18 /min DO Jairo Ball Work Phone: [facility] 10-24-2023 15:40-0500 SaO2% (BldA) [Mass fraction] 100 % DO Jairo Ball Work Phone: [facility] 10-24-2023 15:40-0500 Systolic blood pressure 135 mm[Hg] DO Jairo Ball Work Phone: [facility] 10-24-2023 06:00-0500 Body weight 94.1 kg DO Jairo Ball Work Phone: [facility] 10-24-2023 04:00-0500 Inhaled oxygen flow rate 2 L/min DO Jairo Ball Work Phone: [facility] 10-21-2023 18:32-0500 Body height 177.8 cm DO Jairo Ball Work Phone: [facility] 10-21-2023 17:16-0500 Diastolic blood pressure 98 mm[Hg] DO Jairo Ball Work Phone: [facility] 10-21-2023 17:16-0500 Heart rate 96 /min DO Jairo Ball Work Phone: [facility] 10-21-2023 17:16-0500 Respiratory rate 16 /min DO Jairo Ball Work Phone: [facility] 10-21-2023 17:16-0500 SaO2% (BldA) [Mass fraction] 94 % DO Jairo Ball Work Phone: [facility] 10-21-2023 17:16-0500 Systolic blood pressure 146 mm[Hg] DO Jairo Ball Work Phone: [facility] 10-21-2023 14:35-0500 Body temperature 98.6 [degF] DO Jairo Ball Work Phone: [facility] 10-21-2023 14:32-0500 Body height 177.8 cm DO Jairo Ball Work Phone: [facility] 10-21-2023 14:32-0500 Body weight 99.1 kg DO Jairo Ball Work Phone: [facility] 09-29-2023 14:04-0500 Body height 179.1 cm Mary Neal MD Work Phone: [facility] 09-29-2023 14:04-0500 Body mass index (BMI) [Ratio] 31.12 kg/m2 Mary Neal MD Work Phone: [facility] 09-29-2023 14:04-0500 Body weight 99.79 kg Mary Neal MD Work Phone: [facility] 09-29-2023 14:04-0500 Diastolic blood pressure 70 mm[Hg] Mary Neal MD Work Phone: [facility] 09-29-2023 14:04-0500 Heart rate 80 /min Mary Neal MD Work Phone: [facility] 09-29-2023 14:04-0500 Systolic blood pressure 120 mm[Hg] Mary Neal MD Work Phone: [facility] 09-13-2023 15:30-0500 Body height 177.8 cm Jairo Ball Other [facility] 09-13-2023 15:30-0500 Body mass index (BMI) [Ratio] 31.53 kg/m2 Jairo Ball Other [facility] [employer] Other 09-13-2023 15:30-0500 Body weight 99.7 kg Jairo Ball Other [facility] [employer] Other 09-13-2023 15:30-0500 Body weight 99.69 kg DO Jairo Ball Work Phone: [facility] 09-13-2023 15:30-0500 Diastolic blood pressure 84 mm[Hg] Jairo Ball Other [facility] 09-13-2023 15:30-0500 Respiratory rate 12 /min Jairo Ball Other [facility] [employer] [facility] Other 09-13-2023 15:30-0500 Systolic blood pressure 126 mm[Hg] Jairo Ball Other [facility] 09-05-2023 14:30-0500 Body height 177.8 cm Karlo Aldridge APRN-MANAGER DEVELOPMENT Work Phone: [facility] 09-05-2023 14:30-0500 Body mass index (BMI) [Ratio] 31.42 kg/m2 Karlo Aldridge [employer]IDENTIAL [employer]LECTIONS-MANAGER DEVELOPMENT Work Phone: [facility] 09-05-2023 14:30-0500 Body weight 99.34 kg Karlo Aldridge RESIDENTIAL [employer]LECTIONS-MANAGER DEVELOPMENT Work Phone: [facility] 09-05-2023 14:30-0500 Diastolic blood pressure 76 mm[Hg] Karlo Aldridge RESIDENTIAL COLLECTIONS-MANAGER DEVELOPMENT Work Phone: [facility] 09-05-2023 14:30-0500 Heart rate 97 /min Karlo Aldridge RESIDENTIAL COLLECTIONS-MANAGER DEVELOPMENT Work Phone: [facility] 09-05-2023 14:30-0500 Systolic blood pressure 124 mm[Hg] Karlo Aldridge RESIDENTIAL COLLECTIONS-MANAGER DEVELOPMENT Work Phone: [facility] 09-01-2023 08:17-0500 Body height 179.07 cm DO Jairo Ball Work Phone: [facility] 09-01-2023 08:17-0500 Body temperature 97.7 [degF] DO Jairo Ball Work Phone: [facility] 09-01-2023 08:17-0500 Body weight 100 kg DO Jairo Ball Work Phone: [facility] 09-01-2023 08:17-0500 Diastolic blood pressure 66 mm[Hg] DO Jairo Ball Work Phone: [facility] 09-01-2023 08:17-0500 Heart rate 109 /min DO Jairo Ball Work Phone: [facility] 09-01-2023 08:17-0500 SaO2% (BldA) [Mass fraction] 96 % DO Jairo Ball Work Phone: [facility] 09-01-2023 08:17-0500 Systolic blood pressure 114 mm[Hg] DO Jairo Ball Work Phone: [facility] 06-13-2023 14:47-0400 Body height 177.8 cm Jairo E Ball Work Phone: MR-Yvxlcyczoc-Znpqlth y 250 DO Work Phone: 06-13-2023 14:47-0400 Body mass index (BMI) [Ratio] 30.44 kg/m2 Jairo E Ball Work Phone: SP-Cwmjybaqgm-Hyjdjkv y 250 DO Work Phone: 06-13-2023 14:47-0400 Body surface area Derived from formula 2.14 m2 Jairo E Ball Work Phone: RN-Mmtxearqis-Srzhlos y 250 DO Work Phone: 06-13-2023 14:47-0400 Body weight 96.22 kg Jairo E Ball Work Phone: EN-Tjnpkwuxqa-Zsyzpgy y 250 DO Work Phone: 06-13-2023 14:47-0400 Diastolic blood pressure 78 mm[Hg] Jairo E Ball Work Phone: XE-Lgqwagmpkw-Wpdlpzu y 250 DO Work Phone: 06-13-2023 14:47-0400 Heart rate 56 /min Jairo E Ball Work Phone: KI-Utkdjkrmxn-Zwputum y 250 DO Work Phone: 06-13-2023 14:47-0400 Systolic blood pressure 138 mm[Hg] Jairo E Ball Work Phone: EW-Lgrqfwiisw-Fgptyeh y 250 DO Work Phone: 05-11-2023 15:00-0400 Body height 177.8 cm Jairo Ball Other [employer] Other 05-11-2023 15:00-0400 Body mass index (BMI) [Ratio] 29.84 kg/m2 Jairo Ball Other [employer] Other 05-11-2023 15:00-0400 Body weight 94.35 kg Jairo Ball Other [facility] [employer] [facility] Other 05-11-2023 15:00-0400 Diastolic blood pressure 74 mm[Hg] Jairo Ball Other [facility] Other 05-11-2023 15:00-0400 Systolic blood pressure 136 mm[Hg] Jairo Ball Other [facility] Other 04-15-2023 11:53-0400 Body height 177.8 cm Jairo E Ball Work Phone: [facility] [employer] 250 DO Work Phone: 04-15-2023 11:53-0400 Body mass index (BMI) [Ratio] 29.99 kg/m2 Jairo E Ball Work Phone: [facility] [employer] 250 DO Work Phone: 04-15-2023 11:53-0400 Body surface area Derived from formula 2.13 m2 Jairo E Ball Work Phone: [facility] [employer] 250 DO Work Phone: 04-15-2023 11:53-0400 Body weight 94.8 kg Jairo E Ball Work Phone: [facility] [employer] 250 DO Work Phone: 04-15-2023 11:53-0400 Diastolic blood pressure 72 mm[Hg] Jairo E Ball Work Phone: [facility] [employer] 250 DO Work Phone: 04-15-2023 11:53-0400 Heart rate 60 /min Jairo E Ball Work Phone: [facility] [employer] 250 DO Work Phone: 04-15-2023 11:53-0400 Systolic blood pressure 124 mm[Hg] Jairo E Ball Work Phone: [facility] [employer] 250 DO Work Phone: 03-02-2023 18:36-0400 Body temperature 98.6 [degF] DO Jairo Ball Work Phone: [facility] 03-02-2023 18:36-0400 Diastolic blood pressure 72 mm[Hg] DO Ajiro Ball Work Phone: [facility] 03-02-2023 18:36-0400 Heart rate 74 /min DO Jairo Ball Work Phone: [facility] 03-02-2023 18:36-0400 Respiratory rate 18 /min DO Jairo Ball Work Phone: [facility] 03-02-2023 18:36-0400 SaO2% (BldA) [Mass fraction] 96 % DO Jairo Ball Work Phone: [facility] 03-02-2023 18:36-0400 Systolic blood pressure 120 mm[Hg] DO Jairo Ball Work Phone: [facility] 03-02-2023 12:17-0400 Body height 177.8 cm DO Jairo Ball Work Phone: [facility] 03-02-2023 12:17-0400 Body weight 87.4 kg DO Jairo Ball Work Phone: [facility] 03-01-2023 15:15-0400 Body height 177.8 cm Jairo Ball Other [facility] [employer] [facility] Other 03-01-2023 15:15-0400 Body mass index (BMI) [Ratio] 29.21 kg/m2 Jairo Ball Other [facility] Other 03-01-2023 15:15-0400 Body weight 92.35 kg Jairo Ball Other [facility] [employer] [facility] Other 03-01-2023 15:15-0400 Diastolic blood pressure 67 mm[Hg] Jairo Ball Other [facility] [employer] Other 03-01-2023 15:15-0400 Respiratory rate 12 /min Jairo Ball Other [facility] [employer] [facility] Other 03-01-2023 15:15-0400 Systolic blood pressure 106 mm[Hg] Jairo Ball Other [facility] [employer] [facility] Other 02-25-2023 12:01-0400 Diastolic blood pressure 74 mm[Hg] DO Jairo Ball Work Phone: [facility] 02-25-2023 12:01-0400 Heart rate 80 /min DO Jairo Ball Work Phone: [facility] 02-25-2023 12:01-0400 Systolic blood pressure 125 mm[Hg] DO Jairo Ball Work Phone: [facility] 02-25-2023 12:00-0400 Respiratory rate 16 /min DO Jairo Ball Work Phone: [facility] 02-25-2023 12:00-0400 SaO2% (BldA) [Mass fraction] 96 % DO Jairo Ball Work Phone: [facility] 02-25-2023 08:00-0400 Body temperature 97.7 [degF] DO Jairo Ball Work Phone: [facility] 02-25-2023 06:10-0400 Body weight 87.4 kg DO Jairo Ball Work Phone: [facility] 02-25-2023 06:07-0400 Inhaled oxygen flow rate 2 L/min DO Jairo Ball Work Phone: [facility] 02-24-2023 13:01-0400 Body height 177.8 cm DO Jairo Ball Work Phone: [facility] 02-08-2023 16:30-0400 Body height 177.8 cm Jairo Ball Other [facility] [employer] Other 02-08-2023 16:30-0400 Body mass index (BMI) [Ratio] 30.19 kg/m2 Jairo Ball Other [employer] Other 02-08-2023 16:30-0400 Body weight 95.44 kg Jairo Ball Other [employer] Other 02-08-2023 16:30-0400 Diastolic blood pressure 75 mm[Hg] Jairo Ball Other [employer] Other 02-08-2023 16:30-0400 Respiratory rate 12 /min Jairo Ball Other [employer] Other 02-08-2023 16:30-0400 Systolic blood pressure 126 mm[Hg] Jairo Ball Other [employer] Other 02-08-2023 15:30-0400 Body height 177.8 cm Jairo Ball Other [employer] Other 02-08-2023 15:30-0400 Body mass index (BMI) [Ratio] 30.19 kg/m2 Jairo Ball Other [employer] Other 02-08-2023 15:30-0400 Body weight 95.44 kg Jairo Ball Other [employer] Other 02-08-2023 15:30-0400 Diastolic blood pressure 75 mm[Hg] Jairo Ball Other [employer] Other 02-08-2023 15:30-0400 Respiratory rate 12 /min Jairo Ball Other [employer] Other 02-08-2023 15:30-0400 Systolic blood pressure 126 mm[Hg] Jairo Ball Other [employer] Other Encounters Encounter Date Encounter Type Care Provider Facility Start: 12-10-2024 End: 12-10-2024 ambulatory EDWIN SY Not Available Start: 11-30-2024 End: 11-30-2024 Office outpatient visit 25 minutes Mary Neal MD Work Phone: [facility] Comment on above: Pre-operative examin ation; Medically noncompliant; Medication course changed; 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 congestive 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, NYHA class 2; Atrial fibrillation, currently in sinus rhythm; Abnormal EKG; White coat syndrome with diagnosis of hypertension; longterm current use of 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 therapy; Obstructive sleep apnea syndrome; Non-ischemic cardiomyopathy (Multi); Former smoker; Body mass index (BMI) 30.0-30.9, adult Start: 11-30-2024 End: 11-30-2024 Preprocedural examination done Mary Neal MD Work Phone: [facility] Start: 11-30-2024 End: 11-30-2024 ambulatory [facility] Start: 11-28-2024 End: 12-03-2024 Telephone encounter Edwin Sy [facility] Comment on above: Missed PT; FU Start: 11-22-2024 End: 11-22-2024 Bamboo flowsheet Edwin Alivia [facility] Start: 11-22-2024 End: 11-22-2024 Bamboo flowsheet Edwin Sy [facility] Start: 11-22-2024 End: 11-22-2024 ambulatory Edwin Alivia [facility] Comment on above: Cervical paraspinal muscle spasm (Primary Dx) Start: 11-20-2024 End: 11-20-2024 Bamboo flowsheet Mao Jesus PT Work Phone: [facility] Start: 11-20-2024 End: 11-20-2024 Bamboo flowsheet Mao Jesus PT Work Phone: [facility] Start: 11-20-2024 End: 11-20-2024 ambulatory Mao Jesus PT Work Phone: [facility] Comment on above: Cervical paraspinal muscle spasm (Primary Dx) Start: 11-15-2024 End: 11-15-2024 Bamboo flowsheet Edwin Brink [facility] Start: 11-15-2024 End: 11-15-2024 Bamboo flowsheet Edwin Brink [facility] Start: 11-15-2024 End: 11-15-2024 ambulatory Edwin Brink [facility] Comment on above: Cervical paraspinal muscle spasm (Primary Dx) Start: 11-13-2024 End: 11-13-2024 Bamboo flowsheet Edwin Brink [facility] Start: 11-13-2024 End: 11-13-2024 Bamboo flowsheet Edwin Brink [facility] Start: 11-13-2024 End: 11-13-2024 ambulatory Edwin Brink [facility] Comment on above: Cervical paraspinal muscle spasm (Primary Dx) Start: 11-08-2024 End: 11-08-2024 Bamboo flowsheet Mao Jesus PT Work Phone: [facility] Start: 11-08-2024 End: 11-08-2024 Bamboo flowsheet Mao Jesus PT Work Phone: [facility] Start: 11-08-2024 End: 11-08-2024 ambulatory Mao Jesus PT Work Phone: [facility] Comment on above: Cervical paraspinal muscle spasm (Primary Dx) Start: 11-06-2024 End: 11-06-2024 Bamboo flowsheet Edwin Brink [facility] Start: 11-06-2024 End: 11-06-2024 Bamboo flowsheet Edwin Brink [facility] Start: 11-06-2024 End: 11-06-2024 ambulatory Edwin Brink [facility] Comment on above: Cervical paraspinal muscle spasm (Primary Dx) Start: 11-01-2024 End: 11-01-2024 Bamboo flowsheet Edwin Brink [facility] Start: 11-01-2024 End: 11-01-2024 Bamboo flowsheet Edwin Sy [facility] Start: 11-01-2024 End: 11-01-2024 ambulatory Edwin Sy [facility] Comment on above: Cervical paraspinal muscle spasm (Primary Dx) Start: 10-30-2024 End: 10-30-2024 Bamboo flowsheet Mao Krupa Blackston PT Work Phone: [facility] Start: 10-30-2024 End: 10-30-2024 Bamboo flowsheet Mao T Blackston PT Work Phone: [facility] Start: 10-30-2024 End: 10-30-2024 ambulatory Mao Krupa Blackston PT Work Phone: [facility] Comment on above: Cervical paraspinal muscle spasm (Primary Dx) Start: 10-25-2024 End: 10-25-2024 Bamboo flowsheet Mao Krupa Blackston PT Work Phone: [facility] Start: 10-25-2024 End: 10-25-2024 Bamboo flowsheet Mao T Blackston PT Work Phone: [facility] Start: 10-25-2024 End: 10-25-2024 ambulatory Mao Krupa Blackston PT Work Phone: [facility] Comment on above: Cervical paraspinal muscle spasm (Primary Dx) Start: 10-23-2024 End: 10-23-2024 Bamboo flowsheet Mao T Blackston PT Work Phone: [facility] Start: 10-23-2024 End: 10-23-2024 Bamboo flowsheet Mao T Blackston PT Work Phone: [facility] Start: 10-23-2024 End: 10-23-2024 ambulatory Mao Krupa Blackston PT Work Phone: [facility] Comment on above: Cervical paraspinal muscle spasm (Primary Dx) Start: 10-18-2024 End: 10-18-2024 Bamboo flowsheet Edwin Brink [facility] Start: 10-18-2024 End: 10-18-2024 Bamboo flowsheet Edwin Brink [facility] Start: 10-18-2024 End: 10-18-2024 ambulatory Edwin Brink [facility] Comment on above: Cervical paraspinal muscle spasm (Primary Dx) Start: 10-15-2024 End: 10-15-2024 Bamboo flowsheet Edwin Brink [facility] Start: 10-15-2024 End: 10-15-2024 Bamboo flowsheet Edwin Brink [facility] Start: 10-15-2024 End: 10-15-2024 ambulatory Edwin Brink [facility] Comment on above: Cervical paraspinal muscle spasm (Primary Dx) Start: 10-09-2024 End: 10-09-2024 Bamboo flowsheet Alia Back [facility] Start: 10-09-2024 End: 10-09-2024 Bamboo flowsheet Alia Back [facility] Start: 10-09-2024 End: 10-09-2024 ambulatory Alia Back [facility] Comment on above: Cervical paraspinal muscle spasm (Primary Dx) Start: 10-01-2024 End: 10-01-2024 Bamboo flowsheet Mao Jesus PT Work Phone: [facility] Start: 10-01-2024 End: 10-01-2024 Bamboo flowsheet Mao Jesus PT Work Phone: [facility] Start: 10-01-2024 End: 10-01-2024 ambulatory Mao Jesus PT Work Phone: [facility] Comment on above: Cervical paraspinal muscle spasm (Primary Dx) Start: 09-27-2024 End: 09-27-2024 Bamboo flowsheet Edwin Brink [facility] Start: 09-27-2024 End: 09-27-2024 Bamboo flowsheet Edwin Brink [facility] Start: 09-27-2024 End: 09-27-2024 ambulatory Edwin Brink [facility] Comment on above: Cervical paraspinal muscle spasm (Primary Dx) Start: 09-21-2024 End: 09-21-2024 ambulatory Mary Neal Facility:[facility] Start: 09-20-2024 End: 09-20-2024 Bamboo flowsheet Edwin Brink [facility] Start: 09-20-2024 End: 09-20-2024 Bamboo flowsheet Edwin Brink [facility] Start: 09-20-2024 End: 09-20-2024 ambulatory Edwin Orozcoink [facility] Comment on above: Cervical paraspinal muscle spasm (Primary Dx) Start: 09-17-2024 End: 09-17-2024 Bamboo flowsheet Mao Jesus PT Work Phone: [facility] Start: 09-17-2024 End: 09-17-2024 Bamboo flowsheet Mao Matoston PT Work Phone: [facility] Start: 09-17-2024 End: 09-17-2024 ambulatory Mao Jesus PT Work Phone: [facility] Comment on above: Cervical paraspinal muscle spasm (Primary Dx) Start: 09-13-2024 End: 09-13-2024 Bamboo flowsheet Edwin Brink [facility] Start: 09-13-2024 End: 09-13-2024 Bamboo flowsheet Edwin Brink [facility] Start: 09-13-2024 End: 09-13-2024 ambulatory Edwin Orozcoink [facility] Comment on above: Cervical paraspinal muscle spasm (Primary Dx) Start: 09-11-2024 End: 09-11-2024 Bamboo flowsheet Mao Matoston PT Work Phone: [facility] Start: 09-11-2024 End: 09-11-2024 Bamboo flowsheet Mao Matoston PT Work Phone: [facility] Start: 09-11-2024 End: 09-11-2024 ambulatory Mao Krupa Edin PT Work Phone: [facility] Comment on above: Cervical paraspinal muscle spasm (Primary Dx) Start: 08-08-2024 End: 08-08-2024 ambulatory [facility] Start: 07-30-2024 End: 07-30-2024 Office outpatient visit 25 minutes Mary Neal MD Work Phone: [facility] Comment on above: Non-ischemic cardiom yopathy (Multi); Persistent atrial fibrillation (Multi); Hypertension, benign; 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 congestive 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, NYHA class 2; 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; BMI 31.0-31.9,adult; Former smoker; Lipid screening Start: 07-30-2024 End: 07-30-2024 ambulatory [facility] Start: 06-22-2024 Non-patient / Non-visit DO Armaan Corbin Work Phone: [facility] Gastroenterology Work Phone: Start: 06-22-2024 End: 06-22-2024 Admission to same day surgery center DO Jairo Shaquille Work Phone: [facility] Work Phone: Start: 06-22-2024 End: 06-22-2024 ambulatory DO Jairo Shaquille Work Phone: [facility] Work Phone: Start: 05-30-2024 End: 05-30-2024 ambulatory [facility] Work Phone: Start: 05-30-2024 End: 05-30-2024 Patient encounter procedure [facility] Work Phone: Start: 05-10-2024 Non-patient / Non-visit [facility] Work Phone: Start: 05-01-2024 End: 05-01-2024 ambulatory [facility] Work Phone: Start: 05-01-2024 End: 05-01-2024 Patient encounter procedure [facility] Work Phone: Start: 03-23-2024 Non-patient / Non-visit [facility] Work Phone: Start: 03-21-2024 End: 03-21-2024 ambulatory [facility] Start: 02-11-2024 End: 02-12-2024 ambulatory [facility] Start: 02-11-2024 End: 02-11-2024 Subsequent hospital visit by physician Ashli Fabian Echo/Vasc Room 2 [facility] Comment on above: 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 con gestive 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, NYHA class 2 (Multi); Persistent atrial fibrillation (Multi); Non-ischemic cardiomyopathy (Multi) Start: 01-31-2024 End: 01-31-2024 ambulatory [facility] Work Phone: Start: 01-31-2024 End: 01-31-2024 Patient encounter procedure [facility] Work Phone: Start: 01-30-2024 Encounter for other preprocedural examination [facility] Start: 01-30-2024 End: 01-30-2024 Office outpatient visit 25 minutes Mary Neal MD Work Phone: [facility] Comment on above: 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 con gestive 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, NYHA class 2 (Multi); Persistent atrial fibrillation (Multi); Pre-operative examination; Former smoker; BMI 31.0-31.9,adult; Coronary artery disease involving assiniboine and gros ventre tribes coronary artery of assiniboine and gros ventre tribes heart without angina pectoris; Sinus bradycardia; Non-ischemic cardiomyopathy (Multi); Hypertension, benign Start: 01-30-2024 End: 01-30-2024 Preprocedural examination done Mary Neal MD Work Phone: [facility] Start: 01-30-2024 End: 01-30-2024 ambulatory [facility] Start: 01-30-2024 End: 01-30-2024 Encounter for other preprocedural examination [facility] Start: 11-10-2023 End: 11-10-2023 Office outpatient visit 25 minutes Mary Neal MD Work Phone: [facility] Comment on above: Hospital discharge f ollow-up; Persistent atrial fibrillation (CMS/HCC); longterm current use of 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 therapy; Non-ischemic cardiomyopathy (CMS/HCC); 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 congestive 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, NYHA class 2 (CMS/HCC); Coronary artery disease involving assiniboine and gros [place]re tribes coronary artery of assiniboine and gros ventre tribes heart without angina pectoris; Hypertension, benign; Former smoker Start: 11-01-2023 End: 11-01-2023 Patient encounter procedure DO Jairo Corbin Work Phone: [facility]- Start: 10-26-2023 End: 10-26-2023 ambulatory Jairo Corbin Other [employer] Other Start: 10-26-2023 Telephone encounter [facility] Start: 10-21-2023 End: 10-24-2023 Evaluation and management of inpatient [facility] Facility:[facility] Start: 10-21-2023 Non-patient / Non-visit DO Armaan Corbin Work Phone: [facility] Work Phone: Start: 10-12-2023 Chart abstracting Scanning Pro vider External [facility] Start: 09-29-2023 End: 09-29-2023 Office outpatient visit 25 minutes Mary Neal MD Work Phone: [facility] Comment on above: Persistent atrial fi brillation (CMS/HCC); Paroxysmal atrial fibrillation (CMS/HCC); Non-ischemic cardiomyopathy (CMS/HCC); 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 congestive 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, NYHA class 2 (CMS/HCC); Coronary artery disease involving assiniboine and gros ventre tribes coronary artery of assiniboine and gros ventre tribes heart without angina pectoris; SOB (shortness of breath); Hypertension, benign; 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; Obstructive sleep apnea syndrome; Former smoker; Obesity (BMI 30.0-34.9); Personal history of COVID-19; Dilated cardiomyopathy (CMS/HCC); Medication course changed Start: 09-13-2023 Office outpatient vi sit 25 minutes Jairo Corbin [facility] Start: 09-13-2023 End: 09-13-2023 ambulatory DO Jairo Corbin Work Phone: [employer] Other Start: 09-13-2023 End: 09-13-2023 Departed Referred DO Jairo Corbin Work Phone: [facility] [place] Start: 09-13-2023 End: 09-13-2023 Patient encounter procedure DO Jairo Corbin Work Phone: [facility] Work Phone: Start: 09-10-2023 End: 09-10-2023 ambulatory Jairo Corbin Other [employer] Other Start: 09-10-2023 Telephone encounter [facility] Start: 09-07-2023 End: 09-07-2023 ambulatory Jairo Corbin Other [employer] Other Start: 09-07-2023 Telephone encounter [facility] Start: 09-05-2023 End: 09-05-2023 Office outpatient visit 25 minutes Karlo Aldridge RESIDENTIAL COLLECTIONS-MANAGER DEVELOPMENT Work Phone: [facility] Comment on above: Dilated cardiomyopat hy (CMS/HCC) (Primary Dx); Paroxysmal atrial fibrillation (CMS/HCC); Hypertension, benign; Obstructive sleep apnea syndrome; Class 1 obesity due to excess calories with serious comorbidity and body mass index (BMI) of 30.0 to 30.9 in adult; longterm current use of 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 therapy Start: 09-01-2023 End: 09-01-2023 ambulatory DO Jairo Corbin Work Phone: [facility] Work Phone: Start: 09-01-2023 End: 09-01-2023 Patient encounter procedure DO Jairo Corbin Work Phone: [facility] Work Phone: Start: 08-24-2023 End: 08-25-2023 ambulatory [facility] Start: 06-16-2023 End: 06-16-2023 ambulatory Jairo Corbin Other [employer] Other Start: 06-16-2023 Telephone encounter Jairo Corbin [facility] Start: 06-13-[address] Jairo Corbin Facility: Start: 06-13-2023 Office outpatient vi sit 15 minutes Jairo Corbin Work Phone: [facility] 600 DO Work Phone: Start: 06-13-2023 Patient encounter procedure Jairo Corbin Work Phone: [facility] 250 DO Work Phone: Start: 05-12-2023 Chart Update Jairo julian Work Phone: [facility] 250 DO Work Phone: Start: 05-11-2023 End: 05-11-2023 ambulatory Jairo Corbni Other [facility] [employer] Other Start: 05-11-2023 Office outpatient vi sit 25 minutes Jairo Corbin [facility] Start: 05-05-[address] Jairo Corbin Facility:[id number] Start: 04-20-2023 Image Encounter Jairo julian Work Phone: [facility] 250 DO Work Phone: Start: 04-15-2023 Telephone encounter Jairo Corbin [facility] Start: 04-15-2023 Office outpatient vi sit 40 minutes Jairo Corbin Work Phone: [facility] 250 DO Work Phone: Start: 04-15-2023 End: 04-15-[address] Jairo Corbin [facility] [employer] Other Start: 04-12-2023 End: 04-12-2023 ambulatory Jairo Corbin Other [facility] [employer] Other Start: 04-12-2023 Telephone encounter Jairo Corbin [facility] Start: 03-22-2023 Telephone encounter Jorge jiménez DO Work Phone: [facility] 250 DO Work Phone: Start: 03-06-2023 End: 03-06-2023 ambulatory Jairo Corbin Other [facility] [employer] Other Start: 03-06-2023 Telephone encounter Jairo [facility]bin [facility] Start: 03-02-2023 Telephone encounter J[facility]bin [facility] Start: 03-02-2023 End: 03-02-2023 Admission to same day surgery center DO Jairo Shaquille Work Phone: [facility] Work Phone: Start: 03-02-2023 End: 03-02-2023 ambulatory DO Jairo Shaquille Work Phone: [facility] Work Phone: Start: 03-02-[address] Jorge Lucio Facility:[id number] Start: 03-01-2023 Transitional care tanisha díaz [facility] 14 day discharge Jairo Corbin [facility] Start: 03-01-2023 End: 03-02-[address] JAIRO CORBIN [facility] [employer] Other Start: 02-25-2023 Message Jorge mcadams DO Work Phone: [facility] 250 DO Work Phone: Start: 02-25-[address] Jairo Corbin Facil ity:[facility] Start: 02-25-[address] Jairo Corbin Facil ity:[id number] Start: 02-24-[address] Jairo Corbin Facility:[id number] Start: 02-23-2023 End: 02-25-2023 Evaluation and management of inpatient DO Jairo Corbin Work Phone: [facility] [place] [facility] Work Phone: Start: 02-19-2023 End: 02-20-[address] JAIRO CORBIN Facility:[id number] Start: 02-09-2023 End: 02-09-2023 ambulatory Jairo Shaquille Other [employer] Other Start: 02-09-2023 Telephone encounter Jairo Corbin [facility] Start: 02-08-2023 End: 02-08-2023 ambulatory Jairo Corbin Other [employer] Other Start: 02-08-2023 Patient encounter procedure Jairo Corbin [facility] Start: 02-01-2023 End: 02-01-2023 ambulatory Jairo Corbin Other [employer] Other Start: 02-01-2023 Telephone encounter Jairo Corbin [facility] Start: 12-15-2022 End: 12-15-2022 ambulatory Jairo Corbin Other [employer] Other Start: 12-15-2022 Office outpatient vi sit 15 minutes Jairo Ball [facility] Start: 12-15-2022 Telephone encounter Jairo Corbin [facility] Start: 12-10-2022 End: 12-10-2022 ambulatory Jairo Corbin Other [employer] Other Start: 12-10-2022 Office outpatient vi sit 15 minutes Jairo [facility] Start: 11-27-2022 End: 11-27-2022 ambulatory Jairo Corbin Other [employer] Other Start: 11-27-2022 Telephone encounter Jairo Corbin FP [facility] Start: 06-01-2022 End: 06-02-[address] JAIRO CORBIN Facility:[id number] Procedures Date Procedure Procedure Detail Performing Clinician Start: 11-30-2024 Ecg routine ecg w/least 12 lds w/i&r Mary Neal MD Work Phone: Start: 06-22-2024 Esophagogastroduodenoscopy DO Jairo B all Work Phone: Start: 02-11-2024 TRANSTHORACIC ECHO (TTE) COMPLETE MARY NEAL Start: 01-30-2024 ECG 12-LEAD MARY NEAL Start: 01-30-2024 FOLLOW UP IN CARDIOLOGY MARY NEAL Start: 01-30-2024 Ecg routine ecg w/least 12 lds w/i&r aMry Neal MD Work Phone: Start: 09-07-2023 Ecg routine ecg w/least 12 lds w/i&r Karlo Aldridge RESIDENTIAL COLLECTIONS-MANAGER DEVELOPMENT Work Phone: Start: 08-24-2023 NM HEART BLOOD POOL EJECTION FRACTION WALL MOTION (MUGA) MARY NEAL Start: 08-24-2023 NM HEART BLOOD POOL EJECTION FRACTION WALL MOTION (MUGA) MARY NEAL Start: 03-02-2023 CL [facility] Angio DO Jairo Ball Work Phone: Start: 02-23-2023 Plain chest X-ray DO Jairo Ball Work Phone: Amputation and disar ticulation of finger Jairo E Ball Work Phone: [...] Td Vaccines (2 - Td or Tdap) [facility] Start: 06-27-2025 DTaP/Tdap/Td Vaccines (2 - Td or Tdap) DTaP/Tdap/Td Vaccines (2 - Td or Tdap) [facility] Start: 02-10-2025 Echocardiography Echocardiogram [facility] Start: 01-31-2025 End: 01-31-2025 Patient encounter procedure 01/31/2025 1:00 PM EDT Office Visit [facility] [address] [facility] [address] [place] [address] Mary Neal MD [address] [facility] [address] [place] [address] [facility] Start: 12-10-2024 End: 12-10-2024 ambulatory 12/10/2024 10:00 AM EDT Treatment [facility] [address] [facility] [address] [place] [address] Edwin Sy, MURAL PAINTER [facility] Start: 11-28-2024 End: 11-28-2024 ambulatory 11/28/2024 10:00 AM EST Treatment [facility] [address] [facility] [address] [place] [address] Edwin Sy, MURAL PAINTER [facility] Start: 11-22-2024 End: 11-22-2024 ambulatory [facility] Comment on above: Arrived Start: 11-20-2024 End: 11-20-2024 ambulatory [facility] Comment on above: Arrived Start: 11-15-2024 End: 11-15-2024 ambulatory 11/15/2024 11:30 AM EST Treatment [facility] [address] [facility] [address] [place] [address] Edwin Sy, MURAL PAINTER [facility] Start: 11-13-2024 End: 11-13-2024 ambulatory [facility] Comment on above: Arrived Start: 11-08-2024 End: 11-08-2024 ambulatory 11/08/2024 9:00 AM EST Treatment [facility] [address] [facility] [address] [place] [address] Mao Jesus, PT [address] [place] [address] [facility] Start: 11-06-2024 End: 11-06-2024 ambulatory [facility] Comment on above: Arrived Start: 11-01-2024 End: 11-01-2024 ambulatory [facility] Comment on above: Arrived Start: 10-30-2024 End: 10-30-2024 ambulatory [facility] Comment on above: Arrived Start: 10-25-2024 End: 10-25-2024 ambulatory 10/25/2024 9:00 AM EST Treatment [facility] [address] [place] [address] Mao Jesus, PT [address] [place] [address] [facility] Start: 10-23-2024 End: 10-23-2024 ambulatory 10/23/2024 9:00 AM EST Treatment [facility] [address] [facility] [address] [place] [address] Mao Jesus, PT [address] [place] [address] [facility] Start: 10-21-2024 Echocardiography [facility] Start: 10-18-2024 End: 10-18-2024 ambulatory [facility] Comment on above: Arrived Start: 10-15-2024 End: 10-15-2024 ambulatory [facility] Comment on above: Arrived Start: 10-11-2024 End: 10-11-2024 ambulatory 10/11/2024 9:30 AM EST Treatment [facility] [address] [place] [address] Alia Back PTA [facility] Start: 10-09-2024 End: 10-09-2024 ambulatory [facility] Comment on above: Arrived Start: 10-01-2024 End: 10-01-2024 ambulatory [facility] Comment on above: Arrived Start: 09-27-2024 End: 09-27-2024 ambulatory 09/27/2024 9:00 AM EST Treatment [facility] [address] [place] [address] Edwin Sy PTA [facility] Start: 09-24-2024 End: 09-24-2024 ambulatory 09/24/2024 8:30 AM EST Treatment [facility] [address] [place] [address] Mao Jesus, PT [address] [place] [address] [facility] Start: 09-20-2024 End: 09-20-2024 ambulatory [facility] Comment on above: Arrived Start: 09-17-2024 End: 09-17-2024 ambulatory 09/17/2024 8:00 AM EST Treatment [facility] [address] [place] [address] Mao Jesus, PT [address] [place] [address] [facility] Start: 09-13-2024 End: 09-13-2024 ambulatory [facility] Comment on above: Arrived Start: 09-11-2024 End: 09-11-2024 ambulatory 09/11/2024 8:30 AM EST Evaluation [facility] [address] [place] [address] Mao Jesus, PT [address] [place] [address] Arrived [facility] Comment on above: Arrived Start: 08-08-2024 End: 08-08-2024 Professional / ancillary services management 08/08/2024 1:00 PM EST Ancillary Procedure [facility] [address] [facility] [address] [place] [address] [facility] Start: 07-30-2024 End: 07-30-2025 CBC panel - Blood by Automated count CBC Lab Routine Non-ischemic cardiomyopathy (Multi) Expected: 07/30/2024, Expires: 07/30/2025 [facility] Work Phone: Comment on above: Expected: 07/30/2024, Expires: Start: 07-30-2024 End: 07-30-2025 Comprehensive metabolic 2000 panel - Serum or Plasma Comprehensive Metabolic Panel Lab Routine Non-ischemic cardiomyopathy (Multi) Expected: 07/30/2024, Expires: 07/30/2025 [facility] [[email or web address] Service Area Work Phone: Comment on above: Expected: 07/30/2024, Expires: Start: 07-30-2024 End: 07-30-2025 Holter monitor study Holter Or Event Physical Education Teacher Cardiac Services Routine Persistent atrial fibrillation (Multi) Expected: 07/30/2024 (Approximate), Expires: 07/30/2025 [facility] Work Phone: Comment on above: Expected: 07/30/2024 (Approximate), Expi res: 07/30/2025 Start: 06-22-2024 End: 06-22-2024 [facility] Start: 06-03-2024 COVID-19 Vaccine ( season) COVID-19 Vaccine ( season) [facility] Start: 06-03-2024 Influenza vaccination [facility] Start: 05-01-2024 Patient referral [facility] Work Phone: Start: 03-26-2024 End: 03-26-2024 Patient encounter procedure 03/26/2024 1:15 PM EDT Office Visit [facility] [address] [place] [address] Mary Neal MD [address] [place] [address] [address] [place] [address] [facility] Start: 02-25-2024 Echocardiography Echocardiogram [facility] Start: 02-11-2024 End: 02-11-2024 Patient encounter procedure 02/11/2024 1:30 PM EDT Appointment [address] [place] [address] [facility] Start: 02-02-2024 End: 02-02-2024 Patient encounter procedure 02/02/2024 12:30 PM EDT Office Visit [address] [place] [address] Mary Neal MD [address] [place], [place] [phone] [facility] Start: 01-30-2024 End: 01-29-2026 Heart Transthoracic Transthoracic Echo Complete Echocardiography Routine 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 congestive 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, NYHA class 2 (Multi) Persistent atrial fibrillation (Multi) Non-ischemic cardiomyopathy (Multi) Expected: 01/30/2024 (Approximate), Expires: 01/29/2026 [facility] [[email or web address] Service Area Work Phone: Comment on above: Expected: 01/30/2024 (Approximate), Expi res: 01/29/2026 Start: 11-17-2023 End: 11-10-2024 Basic metabolic 2000 panel - Serum or Plasma Basic Metabolic Panel Lab Routine 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 congestive 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, NYHA class 2 (CMS/HCC) Persistent atrial fibrillation (CMS/HCC) Hypertension, benign Expected: 11/17/2023 (Approximate), Expires: 11/10/2024 [facility] [[email or web address] Service Area Work Phone: Comment on above: Expected: 11/17/2023 (Approximate), Expi res: 11/10/2024 Start: 11-10-2023 End: 11-10-2023 Patient encounter procedure 11/10/2023 1:45 PM EST Office Visit [place] [address] [place] [address] Mary Neal MD [address] [place] [address] [facility] Start: 10-24-2023 End: 10-24-2023 [facility] Start: 10-23-2023 [facility] Start: 10-22-2023 Thiamine [Moles/volume] in Blood [facility] Start: 10-22-2023 [facility] Start: 10-21-2023 Hospital admission [facility] Start: 10-21-2023 Referral to dietetic aide [facility] Start: 10-21-2023 [facility] Start: 10-19-2023 End: 10-19-2023 Patient encounter procedure 10/19/2023 9:00 AM EST Office Visit [facility] [address] [place] [address] Ceci Fuller MD [address] [place] [address] [facility] Start: 09-29-2023 End: 09-29-2023 Patient encounter procedure 09/29/2023 1:45 PM EST Office Visit [facility] [address] [facility] [address] [place] [address] Mary Neal MD [address] [place] [address] [facility] Start: 09-15-2023 MUGA, Provider: CAREN HHVI NUCLEAR 01,[id number], Status: Pen, Time: 2:30 PM MUGA, Provider: CAREN HHVI NUCLEAR 01,[id number], Status: Pen, Time: 2:30 PM CH-Tudqiiyour-Ilkfe erick 250 DO Work Phone: Start: 09-15-2023 EKG, Provider: SARI SANTANA WEB DEVELOPER 1,[id number], Status: Pen, Time: 2:15 PM EKG, Provider: SARI SANTANA WEB DEVELOPER 1,[id number], Status: Pen, Time: 2:15 PM JR-Nvuawroylj-Jziuq erick 250 DO Work Phone: Start: 09-13-2023 Nasal septoplasty OR Nasal Septoplasty/Poss Turbinates (Bilateral) [facility] Start: 07-21-2023 FUV, Provider: Jorge Lucio, Status: Pen, Time: 11:10 AM FUV, Provider: Jorge Lucio, Status: Pen, Time: 11:10 AM [facility] 250 DO Work Phone: Start: 06-03-2023 COVID-19 Vaccine ( season) COVID-19 Vaccine ( season) [facility] Start: 06-03-2023 Influenza vaccination [facility] Start: 05-05-2023 MUGA, Provider: CAREN HHVI NUCLEAR 01,[id number], Status: Pen, Time: 2:30 PM MUGA, Provider: CAREN HHVI NUCLEAR 01,[id number], Status: Pen, Time: 2:30 PM [facility] 250 DO Work Phone: Start: 04-15-2023 FUV, Provider: Jorge Lucio, Status: Pen, Time: 11:00 AM FUV, Provider: Jorge Lucio, Status: Pen, Time: 11:00 AM [facility] 250 DO Work Phone: Start: 03-02-2023 [facility] Start: 02-25-2023 [facility] Start: 02-24-2023 Referral to dietetic aide [facility] Start: 02-24-2023 Sleep disorder assessment [facility] Start: 02-23-2023 Hospital admission [facility] Start: 03-03-2022 Pneumococcal vaccination Pneumococcal Vaccine (3 of 3 - PCV20 or PCV21) [facility] Start: 03-03-2022 Pneumococcal Vaccine: 65+ Years (3 - PPSV23 or PCV20) Pneumococcal Vaccine: 65+ Years (3 - PPSV23 or PCV20) [facility] Start: 03-03-2022 Pneumococcal Vaccine: 65+ Years (3 of 3 - PPSV23 or PCV20) Pneumococcal Vaccine: 65+ Years (3 of 3 - PPSV23 or PCV20) [facility] Start: 2019 Abdominal aortic aneurysm screening Abdominal Aortic Aneurysm (AAA) Screening [facility] Start: 2019 Fall Risk Screening Fall Risk Screening [facility] Start: 2014 RSV High Risk: (Elderly (60+) or Population) (1 - Risk 60-74 years 1-dose series) RSV High Risk: (Elderly (60+) or Population) (1 - Risk 60-74 years 1-dose series) [facility] Start: 2014 RSV patients and/or patients aged 60+ years (1 - 1-dose 60+ series) RSV patients and/or patients aged 60+ years (1 - 1-dose 60+ series) [facility] Start: 10-05-2013 Administration of varicella zoster vaccine Zoster (Shingles) Vaccine (2 of 3) [facility] Start: 10-05-2013 Zoster Vaccines (2 of 3) Zoster Vaccines (2 of 3) [facility] Start: 1972 Adult BMI Screening Adult BMI Screening [facility] Start: 1972 Diabetes mellitus screening Diabetes Screening [facility] Start: 1972 Hepatitis C screening Hepatitis C Screening [facility] Start: 1966 Depression Screening Depression Screening [facility] Start: 1966 Tobacco Screening Tobacco Screening [facility] Start: 1954 COVID-19 Vaccine (#1) COVID-19 Vaccine (#1) [facility] Start: 1954 Creatinine measurement Creatinine Level [facility] Start: 1954 Lipid panel Lipid Panel [facility] Start: 1955 Medicare Annual Wellness Visit [facility] Start: 1955 Potassium measurement Potassium Level [facility] Start: 1955 Screening for malignant neoplasm of colon [facility] aPTT in Platelet poo r plasma by Coagulation assay [facility] Comprehensive metabo lic 2000 panel - Serum or Plasma [facility] ECG 12 Lead ECG 12 Lead ECG Routine Paroxysmal atrial fibrillation (CMS/HCC) 09/07/2023 10:29 AM EST [facility] [[email or web address]] Service Area Work Phone: INR in Platelet poor plasma by Coagulation assay [facility] Patient Education [facility] Work Phone: Patient referral [facility] Work Phone: Prothrombin time (PT) [facility] End: 02-11-2024 US Heart Transthoracic [facility] [[email or web address]] Service Area Work Phone: Comment on above: Once for 1 Occurrences starting 02/11/20 24 until 02/11/2024 [facility] Immunizations Immunization Date Immunization Notes Care Provider Neha cervantes 07-06-2019 Seasonal trivalent influenza vaccine, adjuvanted, preservative free Jorge Lucio DO [facility] Work Phone: 07-06-2019 influenza virus vaccine, unspecified formulation Karlo Aldridge RESIDENTIAL COLLECTIONS-MANAGER DEVELOPMENT Work Phone: [facility] Work Phone: 08-09-2018 influenza, live, intranasal, quadrivalent Jorge Naveed DO Work Phone: [facility] [employer] 250 DO Work Phone: 09-01-2017 influenza, seasonal, injectable, preservative free Jorge Lucio DO Work Phone: [facility] Work Phone: 03-03-2017 pneumococcal polysaccharide vaccine, 23 valent Jairo Corbin Other [employer] Other 06-27-2015 influenza, seasonal, injectable, preservative free Jorge Naveed DO Work Phone[facility] Work Phone: 06-27-2015 pneumococcal conjuga te vaccine, 13 valent Jorge Naveed DO Work Phone: [facility] Work Phone: 06-27-2015 tetanus toxoid, redu parth diphtheria toxoid, and acellular pertussis vaccine, adsorbed Jorge Lucio DO Work Phone: [facility] Work Phone: 08-10-2013 zoster vaccine, live Jorge Lucio DO Work Phone: [facility] 250 DO Work Phone: 08-10-2013 zoster vaccine, unspecified formulation [facility] 08-08-2013 influenza, seasonal, injectable Jorge Lucio DO Work Phone: [facility] Work Phone: 01-21-2009 hepatitis A and hepatitis B vaccine Jorge Lucio DO Work Phone: [facility] 05-21-2008 hepatitis A and hepatitis B vaccine Jorge Lucio DO Work Phone: [facility] 04-03-2008 hepatitis A and hepatitis B vaccine Jorge Lucio DO Work Phone: [facility] Payers Date Payer Category Payer Self-pay [id number] 2023 Private Health Insurance [facility] [place] COS[place] [id number] 5 2020 Miscellaneous or Other [facility] [id number] 5 2020 Unknown [id number] 2020 Unknown [id number] 2020 Medicare [id number] .[id number] 1959 Medicare [id number] 2.16.840.1.373427.19 1959 Unknown [id number] 2.16.840.1.043647.19 1954 Unknown [id number] 2.16.840.1.457299.3.579 .2.593 1954 Unknown [id number] 2.16.840.1.942686.3.579 .2.593 1954 Unknown [id number] 2.16.840.1.954753.3.579 .2.593 1954 Unknown [id number] 2.16.840.1.056240.3.579 .2.1068 1954 Unknown [id number] 2.16.840.1.544933.3.579 .2.356 1954 Unknown [id number] 2.16.840.1.094831.3.579 .2.356 1954 Unknown [id number] 2.16.840.1.721853.3.579 .2.356 1954 Unknown [id number] 2.16.840.1.855380.3.579 .2.356 1954 Unknown [id number] 2.16.840.1.164720.3.579 .2.356 1954 Unknown [id number] 2.16.840.1.140819.3.579 .2.1246 1954 Unknown [id number] 2.16.840.1.123052.3.579 .2.1246 1954 Unknown [id number] 2.16.840.1.081151.3.579 .2.1246 1954 Unknown [id number] 2.16.840.1.093628.3.579 .2.1245 1954 Unknown [id number] 2.16.840.1.987128.3.579 .2.6 1954 Unknown [id number] 2.16840.1.002278.3.579 .2.1243 1954 Unknown [id number] 2.16.840.1.054945.3.579 .2.1244 1954 Unknown [id number] 2.16840.1.657266.3.579 .2.4 1954 Unknown [id number] 2.16.840.1.263857.3.579 .2.1244 1954 Unknown [id number] 2.16840.1.218420.3.579 .2.1244 1954 Unknown [id number] 2.16.840.1.131568.3.579 .2.1259 1954 Unknown [id number] 2.16.840.1.418734.3.579 .2.1259 1954 Unknown [id number] 2.16.840.1.609389.3.579 .2.1259 1954 Unknown [id number] 2.16.840.1.714186.3.579 .2.1259 1954 Unknown [id number] 2.16.840.1.690355.3.579 .2.1258 1954 Unknown [id number] 2.16.840.1.335786.3.579 .2.1258 1954 Unknown [id number] 2.16.840.1.841789.3.579 .2.1258 1954 Unknown [id number] 2.16840.1.566452.3.579 .2.1258 1954 Unknown [id number] 2.16.840.1.084414.3.579 .2.1258 1954 Unknown [id number] 2.16840.1.554699.3.579 .2.1258 1954 Unknown [id number] 2.840.1.128824.3.579 .2.1258 1954 Unknown [id number] 2.840.1.008231.3.579 .2.1258 1954 Unknown [id number] 2.840.1.933345.3.579 .2.1258 1954 Unknown [id number] 2.16840.1.564580.3.579 .2.1258 1954 Unknown [id number] 2.16840.1.128204.3.579 .2.1258 1954 Unknown [id number] 2.16840.1.824824.3.579 .2.1258 1954 Unknown [id number] 2.16.840.1.657380.3.579 .2.1258 1954 Unknown [id number] 2.16.840.1.043697.3.579 .2.1258 1954 Unknown [id number] 2.16.840.1.338914.3.579 .2.1258 1954 Unknown [id number] 2.16840.1.037793.3.579 .2.1259 Unknown [facility] [id number] Unknown [id number] 2.16.840.1.116185.3.579 .2.531 Unknown [id number] 2.16.840.1.378442.3.579 .2.531 Unknown [id number] 2.16.840.1.884243.3.579 .2.531 Social History Date Type Detail Facility Start: 08-09-2023 End: 09-05-2023 Sex Assigned At [facility] [address] Other Start: 03-02-2023 End: 04-06-2023 Tobacco smoking status NHIS Ex-smoker (finding) [facility] Start: 1955 Sex Assigned At Male [facility] Start: 08-09-2023 End: 09-05-2023 Alcohol ingestion Alcohol ingestion [facility] 250 DO Work Phone: Comment on above: 10oz wine daily; coffee 1 mug daily; quit 2007; Start: 11-01-2023 End: 11-01-2023 History of tobacco use Current smoker [facility] Work Phone: End: 10-03-2003 History of tobacco use Cigarette Smoker [facility] Work Phone: Start: 09-05-2023 End: 01-30-2024 Tobacco use and exposure Smokeless tobacco non-user [facility] Work Phone: Start: 08-09-2023 End: 09-05-2023 Alcohol intake Current drinker of alcohol (finding) [facility] Work Phone: Start: 1955 Sex Assigned At Not on file [facility] Work Phone: Start: 08-26-2023 End: 11-30-2024 Exposure to SARS-CoV-2 (event) Not sure [facility] Start: 10-22-2023 Tobacco smoking stat us NEIS Never smoked tobacco (finding) [facility] Start: 04-06-2023 Tobacco Comment Last smoked : > 10 years [facility] Start: 04-06-2023 Alcohol Comment caffeine intak e : 1-2 cups per day [facility] Tobacco smoking stat us NEIS Tobacco smoking consumption unknown [facility] Housing Instability Unknown [facility] Goals Date Patient Goal Desired Activity /State Functional Status Date Assessment Result Facility 03-02-2023 Functional status Patient at Baseline [facility] Work Phone: 02-25-2023 Functional status Patient at Baseline [facility] Work Phone: 02-24-2023 Functional status Disability Sta tus Patient at Baseline [facility] Work Phone: Mental Status Date Assessment Result Facility 03-02-2023 Cognitive function Cognitive Sta tus Patient at Baseline [facility] Work Phone: 02-25-2023 Cognitive function Cognitive Sta tus Patient at Baseline [facility] Work Phone: Clinical Notes 2019 to 12-03-2024 Telephone Encounter - Oma Dixon - 12/03/2024 12:40 PM ESTTelephone Encounter - Oma Dixon - 12/03/2024 12:40 PM ESTTelephone Encounter - Oma Dixon - 11/28/2024 10:14 AM ESTPatient Instructions Note Date & Type Note Facility 12-03-2024 Telephone encounter Note Called him back to offer rs. With his schedule filling up he requested a week out and he will have PT 12/10/24 w/ Edwin Sy MURAL PAINTER. [facility] 12-03-2024 Miscellaneous Notes Called him back to offer rs. With his schedule filling up he requested a week out and he will have PT 12/10/24 w/ Edwin Sy, MURAL PAINTER. Contacted regarding missed PT @ 10 today. He said he was heading to [place] for appt in assisted living for father; he noted he had attempted to cx. I noted today was last scheduled and offered tomorrow; but he said post appt for father he'll contact to rs. documented in this encounter [facility] 11-30-2024 History of Presen t illness Narrative Patient was last seen by me July 2024. The patient has history of systolic left 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, diastolic 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, paroxysmal atrial fibrillation, nonischemic cardiomyopathy, long-term anticoagulation, obstructive sleep apnea and a BMI of 30.6 today. He is here for preoperative cardiac risk assessment prior to surgery for deviated septum. He also had additional testing in August 2024 to include a 14-day monitor. He is accompanied by his to the office. Subjective : Reports side effects to medications. He has made changes to his medical regimen. Aldactone caused breast swelling and tenderness, and he ended up getting a mammogram. He then discontinued the Aldactone after looking up information on the medication. Discontinue digoxin-reason is unclear he says he has a dry mouth, and hence he discontinued digoxin. He is also trying to wean himself off medications. As such he takes carvedilol 12.5 mg once a day. He is also taking his Entresto once a day. Recently he takes Entresto once a day is because of the cost. He remains on warfarin therapy, do not have access to PT and INR, he reports no bleeding diathesis. Interval review of systems is negative for chest discomfort pressure tightness heaviness palpitations lightheadedness orthopnea paroxysmal nocturnal dyspnea dependent edema or claudication TIA or CVA type symptoms or bleeding diathesisI 12 point ROS is negative or non contributory except as noted. History so Far : COVID infection with respiratory symptoms December 2022 Systolic congestive 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 January 2023 class IV January 2023 [place] [facility] [place]iac cath: LVEF 20% LVEDP was [...] 69 mmHg, LV end-systolic diameter 4.5 cm Echocardiogram 05/10/2024-LVEF 50 to 55% normal pattern of LV diastolic filling, left atrial size reported to be normal but measured at 4.7 cm, trace mitral regurgitation, trace tricuspid regurgitation, no pericardial effusion, LV end-systolic size 3.75 cm, PA pressure not estimated. Primary hypertension optimal in office No orthostatic [...] being measured enrolled in Coumadin clinic at [place]. Echocardiogram January 2023-LVEF 40 to 45% moderate [...] healthy lifestyle choices on overall cardiovascular health. longterm current use of 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 therapy CHADS VASc 3 Understands importance of anticoagulation, currently on warfarin DOACs are prohibitively expensive for him Acute on chronic systolic left 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, precipitated by atrial fibrillation with rapid ventricular rate, hospitalized October 2023, electrically cardioverted to sinus rhythm. Currently functional class II Obstructive sleep apnea syndrome Remains compliant with BiPAP 14-day event monitor August 2024-sinus rhythm ranging from 69 bpm to 86 bpm no atrial fibrillation or flutter isolated ventricular premature beats were noted there were 11 patient triggered episodes that all corresponded to normal sinus rhythm, most of them with ventricular premature beats. Some of the strips have baseline artifact and hence identification of P wave is not possible. Objective Wt Readings from Last 3 Encounters: 11/30/24 98.3 kg (216 lb 12.8 oz) 07/30/24 100 kg (221 lb 6.4 oz) 03/21/24 99.8 kg (220 lb) Vitals: 11/30/24 1022 BP: 148/90 BP Location: Right arm Patient Position: Sitting Pulse: 66 Weight: 98.3 kg (216 lb 12.8 oz) Height: 1.791 m (5' 10.5 ) Physical Exam: GENERAL APPEARANCE: in no [...] Medication Instructions ALPRAZolam (Xanax) 0.5 mg tablet 2 times daily ascorbic acid, vitamin C, 500 mg capsule 1 capsule, Daily aspirin 81 mg, Daily carvedilol (COREG) 6.25 mg, oral, 2 times daily (morning and late afternoon) cetirizine (ZYRTEC) 10 mg, Nightly magnesium oxide 300 mg magnesium tablet 1 tablet, Nightly pantoprazole (PROTONIX) 40 mg, As needed sacubitriL-valsartan (Entresto) 24-26 mg tablet 1 tablet, oral, 2 times daily selenium 50 mcg, Daily traMADol (Ultram) 50 mg tablet 1 tablet, Every 6 hours PRN valsartan (DIOVAN) 80 mg, oral, Daily warfarin (Coumadin) 1 mg tablet Take as directed by [place] [facility] zinc acetate 25 mg (zinc) capsule 1 capsule, Daily Allergies Allergen Reactions Nsaids (Non-Steroidal Anti-Inflammatory Drug) Unknown Dtjooyt-Flo-Mbx Reductase Inhibitors Unknown Spironolactone Other Breast pain/enlargement LABS: Lipids: No results found for: CHOL No results found for: HDL No results found for: LDLCALC No results found for: TRIG No components found for: CHOLHDL A1C No results found for: HGBA1C CBC September 2024 BUN 13 creatinine 0.78 GFR greater than 60 unable to measure potassium or sodium because specimen was hemolyzed glucose 157 Patient Active Problem List Diagnosis Date Noted Medically noncompliant 11/30/2024 White coat syndrome with diagnosis of hypertension 11/30/2024 Atrial fibrillation, currently in sinus rhythm 11/30/2024 Abnormal EKG 11/30/2024 Pre-operative examination 01/30/2024 Body mass index (BMI) 30.0-30.9, adult 01/30/2024 Sinus bradycardia 01/30/2024 Hospital discharge follow-up 11/10/2023 Personal history of COVID-19 09/29/2023 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 congestive 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, NYHA class 2 09/29/2023 Medication course changed 09/29/2023 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 Pre-operative examination ECG 12 Lead 2. Medically noncompliant 3. Medication course changed 4. 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 congestive 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, NYHA class 2 sacubitriL-valsartan (Entresto) 24-26 mg tablet 5. Atrial fibrillation, currently in sinus rhythm 6. Abnormal EKG 7. White coat syndrome with diagnosis of hypertension 8. 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 Obstructive sleep apnea syndrome 10. Non-ischemic cardiomyopathy (Multi) Referral to Clinical Pharmacy valsartan (Diovan) 80 mg tablet carvedilol (Coreg) 6.25 mg tablet sacubitriL-valsartan (Entresto) 24-26 mg tablet 11. Former smoker 12. Body mass index (BMI) 30.0-30.9, adult Clinical decision making: Clinically patient is doing well Discussed extensively the importance of taking medications as per guidelines. Patient to inform us if he is making medication changes. Told him that the carvedilol and Entresto are twice daily medications. I do not feel comfortable taking him off of these medications at this time. His LV ejection fraction was as low as 20%, and has come up to 50 to 55% as of 2023. He does have a component of whitecoat hypertension. I reviewed his home blood pressure readings, they are all at target. He can discontinue the digoxin. As far as the carvedilol goes, rather than taking 12.5 mg p.o. daily we will switch to 6.25 mg p.o. twice daily As far as Entresto goes, we can switch him to Diovan 80 mg p.o. twice daily. Cardiac risk is acceptable to proceed with surgery for deviated nasal septum. Patient will have to hold Coumadin for 3 to 5 days, for the procedure, to be directed by Coumadin clinic. Resume Coumadin after surgery. If he continues to do well, we can consider discontinuation of anticoagulation at next visit. Patient and expressed understanding Follow up : As scheduled 01/31/2025. Provider Attestation - Adele Lloyd LPN Scribjourdan documentation All medical record entries made by the Scribe were at my direction and personally dictated by me. I have reviewed the chart and agree that the record accurately reflects my personal performance of the history, physical exam, discussion and plan. documented in this encounter [facility] Work Phone: 11-30-2024 Instructions Adele Sampson LPN - 11/30/2024 10:15 AM EST Please bring all medicines, vitamins, and herbal supplements with you when you come to the office. Prescriptions will not be filled unless you are compliant with your follow up appointments or have a follow up appointment scheduled as per instruction of your physician. Refills should be requested at the time of your visit. EKG done in office today. BMI was above normal measurement. Current weight: 98.3 kg (216 lb 12.8 oz) Weight change since last visit (-) denotes wt loss -4.6 lbs Weight loss needed to achieve BMI 25: 40.4 Lbs Weight loss needed to achieve BMI 30: 5.2 Lbs Provided instructions on dietary changes Provided instructions on exercise. Vick Mercado is clear for surgery from a cardiac standpoint. Coumadin hold 3-5 days prior to surgery-lead by coumadin clinic. documented in this encounter [facility] Work Phone: 11-28-2024 Telephone encounter Note Contacted regarding missed PT @ 10 today. He said he was heading to [place] for appt in assisted living for father; he noted he had attempted to cx. I noted today was last scheduled and offered tomorrow; but he said post appt for father he'll contact to . [facility] 11-20-2024 History of Presen t illness Narrative Images from the original note were not included. Physical Therapy Treatment Visit Patient Name: Vick Mercado Today's Date: 11/20/2024 Encounter Diagnoses Name Primary? Cervical paraspinal muscle spasm Yes Visit number: 11 ( 6 in 2023) Timed Code Treatment : 53 minutes Total Treatment Time: 65 minutes Time In: 0900 Time Out: 1005 History: Pt. Presents to PT with c/c of neck pain which started 3-4 weeks ago. Pain starts in neck and refers into jaw, anterior neck and chest. Has difficulty lifting objects and feels he gets tired a lot fast than normal. Reports neck pain wakes him up at night. Decreased sensation in his left index and middle finger. Pt. Goal is to improve neck flexibility and strength. Precautions: C3-C6 cervical spine fusion Subjective: Pt reports still little sore from fall. Pain: denies present Objective: PT Evaluation (09/11/24) Neck ROM: flexion normal, extension normal, SB 20 deg bilateral, rotation 30 degrees bilateral Flexibility: bilateral cervical paraspinal muscle tightness and upper trapezius muscle tightness Strength: bilateral scapular 4-/5, shoulder flexion 4/5, abduction 4/5 Palpation: increased upper trapezius muscle tone Treatment: Manual Therapy: (15 minutes) Delivered manaul ther in supine, bilateral UT stretch, STM/TPR to trap muscles, and PROM to general cervical motions. Soft Tissue Mobilization, Myofascial Release to anterior neck and upper chest musculature. Therapeutic Exercise: (23 minutes supervised) guided pt through ther and flex ex to improve thoracic and cervical mobility , strength and spinal stability. exercises in grid; Therapeutic Activity: Exercises to improve dynamic activities, functional tasks, functional mobility to return to prior activity level Neuromuscular re-education: (15 Minutes) Instructions to improve postural stability and scapular positioning needed to reduce strain on neck. Tactile cues to reduce IT involvement. Modalities: Heat, Ice, Electrical Stimulation, Ultrasound, Cervical Mechanical Traction, Lumbar Mechanical Traction, Iontophoresis, and Fluidotherapy Assessment: Pt. Has participated in 18 PT session with start of POC on 09/11 for neck pain and UE weakness. Pt. Demonstrates improved cervical ROM grossly in all planes. Good tolerance with all ther ex today. Pt. Continues to demonstrate good progress toward PT goals. Outcome Measure: Neck Index 18, 10/15 (index 18 ) Short Term Goal: To be met in 2 weeks Goal 1: Pt to be instructed in home exercise program. 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 Goal 2: Pt. Will report of 0/10 neck pain while performing household tasks to help improve his quality of life. (50% MET) Goal 3: Pt. Will demonstrate normal upper trapezius muscle flexibility to help decrease pain and improve his functional mobility. (75% MET) Goal 4: Pt. Will demonstrate 5/5 scapular muscle strength to allow him to lift/carry objects to help improve his functional mobility. (40 % MET) Goal 5: Pt. Will demonstrate 5/5 shoulder strength grossly in all planes to allow him to lift/carry objects to help improve his functional mobility with daily tasks. (50 % MET) Pt will benefit from skilled PT for 1-3x/week from 09/11/24 to 11/20/24 to address the above impairments. I hereby deem this POC medically necessary. Please sign below. Date: documented in this encounter [facility] 11-08-2024 History of Presen t illness Narrative Images from the original note were not included. Physical Therapy Treatment Visit Patient Name: Vick Mercado Today's Date: 11/08/2024 Encounter Diagnoses Name Primary? Cervical paraspinal muscle spasm Yes Visit number: 9 ( 6 in 2023) Timed Code Treatment : 54 minutes Total Treatment Time: 60 minutes Time In: 0900 Time Out: 1000 History: Pt. Presents to PT with c/c of neck pain which started 3-4 weeks ago. Pain starts in neck and refers into jaw, anterior neck and chest. Has difficulty lifting objects and feels he gets tired a lot fast than normal. Reports neck pain wakes him up at night. Decreased sensation in his left index and middle finger. Pt. Goal is to improve neck flexibility and strength. Precautions: C3-C6 cervical spine fusion Subjective: Pt reports of chest pain/tightness feeling. Pleased with his progress. Pain: denies present Objective: PT Evaluation (09/11/24) Neck ROM: flexion normal, extension normal, SB 20 deg bilateral, rotation 30 degrees bilateral Flexibility: bilateral cervical paraspinal muscle tightness and upper trapezius muscle tightness Strength: bilateral scapular 4-/5, shoulder flexion 4/5, abduction 4/5 Palpation: increased upper trapezius muscle tone Treatment: Manual Therapy: (15 minutes) Delivered manaul ther in prone, bilateral UT stretch, PA mobs to thoracic region and STM/TPR to trap muscles. Soft Tissue Mobilization, Myofascial Release to anterior neck and upper chest musculature. Therapeutic Exercise: (24 minutes supervised) guided pt through ther and flex ex to improve thoracic and cervical mobility , strength and spinal stability. exercises in grid; Therapeutic Activity: Exercises to improve dynamic activities, functional tasks, functional mobility to return to prior activity level Neuromuscular re-education: (15 Minutes) Instructions to improve postural stability and scapular positioning needed to reduce strain on neck. Tactile cues to reduce IT involvement. Modalities: Heat, Ice, Electrical Stimulation, Ultrasound, Cervical Mechanical Traction, Lumbar Mechanical Traction, Iontophoresis, and Fluidotherapy Assessment: Pt. Has participated in 15 PT session with start of POC on 09/11 for neck pain and UE weakness. Pt. Demonstrates improved cervical ROM grossly in all planes. Pt. Demonstrates significant improvement his his shoulder strength. PT is helping to improve his quality of life. Outcome Measure: Neck Index 18, 10/15 (index 18 ) Short Term Goal: To be met in 2 weeks Goal 1: Pt to be instructed in home exercise program. Halfway Goals: To be met in 10 weeks Goal 1: Pt to report independence and compliance with home program. Goal 2: Pt. Will report of 0/10 neck pain while performing household tasks to help improve his quality of life. (50% MET) Goal 3: Pt. Will demonstrate normal upper trapezius muscle flexibility to help decrease pain and improve his functional mobility. (75% MET) Goal 4: Pt. Will demonstrate 5/5 scapular muscle strength to allow him to lift/carry objects to help improve his functional mobility. (40 % MET) Goal 5: Pt. Will demonstrate 5/5 shoulder strength grossly in all planes to allow him to lift/carry objects to help improve his functional mobility with daily tasks. (50 % MET) Pt will benefit from skilled PT for 1-3x/week from 09/11/24 to 11/20/24 to address the above impairments. I hereby deem this POC medically necessary. Please sign below. Date: documented in this encounter [facility] 10-30-2024 History of Presen t illness Narrative Images from the original note were not included. Physical Therapy Progress Visit Patient Name: Vick eMrcado Today's Date: 10/30/2024 Encounter Diagnoses Name Primary? Cervical paraspinal muscle spasm Yes Visit number: 6 ( 6 in 2023) Timed Code Treatment : 40 minutes Total Treatment Time: 55 minutes Time In: 0850 Time Out: 0945 History: Pt. Presents to PT with c/c of neck pain which started 3-4 weeks ago. Pain starts in neck and refers into jaw, anterior neck and chest. Has difficulty lifting objects and feels he gets tired a lot fast than normal. Reports neck pain wakes him up at night. Decreased sensation in his left index and middle finger. Pt. Goal is to improve neck flexibility and strength. Precautions: C3-C6 cervical spine fusion Subjective: Pt reports of chest muscle tightness while performing overhead lifting tasks. Pain: denies present, muscle soreness in chest from doing band routine Objective: PT Evaluation (09/11/24) Neck ROM: flexion normal, extension normal, SB 20 deg bilateral, rotation 30 degrees bilateral Flexibility: bilateral cervical paraspinal muscle tightness and upper trapezius muscle tightness Strength: bilateral scapular 4-/5, shoulder flexion 4/5, abduction 4/5 Palpation: increased upper trapezius muscle tone Treatment: Manual Therapy: (15 minutes) Delivered manaul ther pt supine cervical SOR, bilateral UT stretch Passive ROM to cervical spine minding fusions, Soft Tissue Mobilization, Myofascial Release to anterior neck and upper chest musculature. Therapeutic Exercise: (15 minutes supervised) guided pt through ther and flex ex to improve thoracic and cervical mobility , strength and spinal stability. exercises in grid; Therapeutic Activity: Exercises to improve dynamic activities, functional tasks, functional mobility to return to prior activity level Neuromuscular re-education: (10 Minutes) Instructions to improve postural stability and scapular positioning needed to reduce strain on neck. Tactile cues to reduce IT involvement. Modalities: Heat, Ice, Electrical Stimulation, Ultrasound, Cervical Mechanical Traction, Lumbar Mechanical Traction, Iontophoresis, and Fluidotherapy Assessment: Pt. Has participated in 12 PT session with start of POC on 09/11 for neck pain and UE weakness. Pt. Demonstrates improved cervical ROM grossly in all planes. Improved bilateral upper trapezius muscle flexibility. Scapular weakness 4/5. Fatigue noted with band exercises. Pt. Is making slow progress toward PT goals. Pt. Continues to progress to improve his UE strength to improve his functional mobility. Outcome Measure: Neck Index 18, 10/15 (index 18 ) Short Term Goal: To be met in 2 weeks Goal 1: Pt to be instructed in home exercise program. Halfway Goals: To be met in 10 weeks Goal 1: Pt to report independence and compliance with home program. Goal 2: Pt. Will report of 0/10 neck pain while performing household tasks to help improve his quality of life. (50% MET) Goal 3: Pt. Will demonstrate normal upper trapezius muscle flexibility to help decrease pain and improve his functional mobility. (75% MET) Goal 4: Pt. Will demonstrate 5/5 scapular muscle strength to allow him to lift/carry objects to help improve his functional mobility. (40 % MET) Goal 5: Pt. Will demonstrate 5/5 shoulder strength grossly in all planes to allow him to lift/carry objects to help improve his functional mobility with daily tasks. (50 % MET) Pt will benefit from skilled PT for 1-3x/week from 09/11/24 to 11/20/24 to address the above impairments. I hereby deem this POC medically necessary. Please sign below. Date: documented in this encounter [facility] 10-25-2024 History of Presen t illness Narrative Images from the original note were not included. Physical Therapy Progress Visit Patient Name: Vick Mercado Today's Date: 10/25/2024 Encounter Diagnoses Name Primary? Cervical paraspinal muscle spasm Yes Visit number: 5 ( 6 in 2023) Timed Code Treatment : 40 minutes Total Treatment Time: 46 minutes Time In: 0850 Time Out: 0936 History: Pt. Presents to PT with c/c of neck pain which started 3-4 weeks ago. Pain starts in neck and refers into jaw, anterior neck and chest. Has difficulty lifting objects and feels he gets tired a lot fast than normal. Reports neck pain wakes him up at night. Decreased sensation in his left index and middle finger. Pt. Goal is to improve neck flexibility and strength. Precautions: C3-C6 cervical spine fusion Subjective: Pt reports of increased shoulder muscle soreness after last PT session. Less neck pain but c/c now is UE weakness limiting his ability to perform overhead activities. Pain: denies present, muscle soreness in chest from doing band routine Objective: PT Evaluation (09/11/24) Neck ROM: flexion normal, extension normal, SB 20 deg bilateral, rotation 30 degrees bilateral Flexibility: bilateral cervical paraspinal muscle tightness and upper trapezius muscle tightness Strength: bilateral scapular 4-/5, shoulder flexion 4/5, abduction 4/5 Palpation: increased upper trapezius muscle tone Treatment: Manual Therapy: (15 minutes) Delivered manaul ther pt supine cervical SOR, bilateral UT stretch Passive ROM to cervical spine minding fusions, Soft Tissue Mobilization, Myofascial Release to anterior neck and upper chest musculature. Therapeutic Exercise: (15 minutes supervised) guided pt through ther and flex ex to improve thoracic and cervical mobility , strength and spinal stability. exercises in grid; Therapeutic Activity: Exercises to improve dynamic activities, functional tasks, functional mobility to return to prior activity level Neuromuscular re-education: (10 Minutes) Instructions to improve postural stability and scapular positioning needed to reduce strain on neck. Tactile cues to reduce IT involvement. Modalities: Heat, Ice, Electrical Stimulation, Ultrasound, Cervical Mechanical Traction, Lumbar Mechanical Traction, Iontophoresis, and Fluidotherapy Assessment: Pt. Has participated in 11 PT session with start of POC on 09/11 for neck pain and UE weakness. Pt. Demonstrates improved cervical ROM grossly in all planes. Improved bilateral upper trapezius muscle flexibility. Scapular weakness 4/5. Fatigue noted with band exercises. Pt. Is making slow progress toward PT goals. Outcome Measure: Neck Index 18, 10/15 (index 18 ) Short Term Goal: To be met in 2 weeks Goal 1: Pt to be instructed in home exercise program. Halfway Goals: To be met in 10 weeks Goal 1: Pt to report independence and compliance with home program. Goal 2: Pt. Will report of 0/10 neck pain while performing household tasks to help improve his quality of life. (50% MET) Goal 3: Pt. Will demonstrate normal upper trapezius muscle flexibility to help decrease pain and improve his functional mobility. (75% MET) Goal 4: Pt. Will demonstrate 5/5 scapular muscle strength to allow him to lift/carry objects to help improve his functional mobility. (40 % MET) Goal 5: Pt. Will demonstrate 5/5 shoulder strength grossly in all planes to allow him to lift/carry objects to help improve his functional mobility with daily tasks. (50 % MET) Pt will benefit from skilled PT for 1-3x/week from 09/11/24 to 11/20/24 to address the above impairments. I hereby deem this POC medically necessary. Please sign below. Date: documented in this encounter [facility] 10-23-2024 History of Presen t illness Narrative Images from the original note were not included. Physical Therapy Progress Visit Patient Name: Vick Mercado Today's Date: 10/23/2024 Encounter Diagnoses Name Primary? Cervical paraspinal muscle spasm Yes Visit number: 4 ( 6 in 2023) Timed Code Treatment : 53 minutes Total Treatment Time: 60 minutes Time In: 854 Time Out: 924 History: Pt. Presents to PT with c/c of neck pain which started 3-4 weeks ago. Pain starts in neck and refers into jaw, anterior neck and chest. Has difficulty lifting objects and feels he gets tired a lot fast than normal. Reports neck pain wakes him up at night. Decreased sensation in his left index and middle finger. Pt. Goal is to improve neck flexibility and strength. Precautions: C3-C6 cervical spine fusion Subjective: Pt reports of less jaw pain, still having anterior chest muscle tightness. Overall neck is feeling better. Can tell his shoulder are weak and has difficulty reaching/lifting objects overhead. Pain: denies present, muscle soreness in chest from doing band routine Objective: PT Evaluation (09/11/24) Neck ROM: flexion normal, extension normal, SB 20 deg bilateral, rotation 30 degrees bilateral Flexibility: bilateral cervical paraspinal muscle tightness and upper trapezius muscle tightness Strength: bilateral scapular 4-/5, shoulder flexion 4/5, abduction 4/5 Palpation: increased upper trapezius muscle tone Treatment: Manual Therapy: (15 minutes) Delivered manaul ther pt supine cervical SOR, bilateral UT stretch Passive ROM to cervical spine minding fusions, Soft Tissue Mobilization, Myofascial Release to anterior neck and upper chest musculature. Therapeutic Exercise: (28 minutes supervised) guided pt through ther and flex ex to improve thoracic and cervical mobility , strength and spinal stability. exercises in grid; Therapeutic Activity: Exercises to improve dynamic activities, functional tasks, functional mobility to return to prior activity level Neuromuscular re-education: (10 Minutes) Instructions to improve postural stability and scapular positioning needed to reduce strain on neck. Tactile cues to reduce IT involvement. Modalities: Heat, Ice, Electrical Stimulation, Ultrasound, Cervical Mechanical Traction, Lumbar Mechanical Traction, Iontophoresis, and Fluidotherapy Assessment: Pt. Has participated in 10 PT session with start of POC on 09/11 for neck pain and UE weakness. Pt. Demonstrates improved cervical ROM grossly in all planes. Improved bilateral upper trapezius muscle flexibility. Scapular weakness 4/5. Fatigue noted with band exercises. Pt. Is making slow progress toward PT goals. Outcome Measure: Neck Index 18, 10/15 (index 18 ) Short Term Goal: To be met in 2 weeks Goal 1: Pt to be instructed in home exercise program. Halfway Goals: To be met in 10 weeks Goal 1: Pt to report independence and compliance with home program. Goal 2: Pt. Will report of 0/10 neck pain while performing household tasks to help improve his quality of life. (50% MET) Goal 3: Pt. Will demonstrate normal upper trapezius muscle flexibility to help decrease pain and improve his functional mobility. (75% MET) Goal 4: Pt. Will demonstrate 5/5 scapular muscle strength to allow him to lift/carry objects to help improve his functional mobility. (40 % MET) Goal 5: Pt. Will demonstrate 5/5 shoulder strength grossly in all planes to allow him to lift/carry objects to help improve his functional mobility with daily tasks. (50 % MET) Pt will benefit from skilled PT for 1-3x/week from 09/11/24 to 11/20/24 to address the above impairments. I hereby deem this POC medically necessary. Please sign below. Date: documented in this encounter [facility] 10-01-2024 History of Presen t illness Narrative Images from the original note were not included. Physical Therapy Treatment Visit Patient Name: Vick Mercado Today's Date: 10/01/2024 Encounter Diagnoses Name Primary? Cervical paraspinal muscle spasm Yes Visit number: 6 Timed Code Treatment Minutes: 53 minutes Total Treatment Time: 53 minutes Time In: 0900 Time Out: 09 History: Pt. Presents to PT with c/c of neck pain which started 3-4 weeks ago. Pain starts in neck and refers into jaw, anterior neck and chest. Has difficulty lifting objects and feels he gets tired a lot fast than normal. Reports neck pain wakes him up at night. Decreased sensation in his left index and middle finger. Pt. Goal is to improve neck flexibility and strength. Precautions: C3-C6 cervical spine fusion Subjective: Pt. Reports of slightly less neck pain throughout the day. Pt. Is pleased with his progress. 50% improvement. Pain: 3/10; pain increases throughout the day Objective: PT Evaluation (09/11/24) Neck ROM: flexion normal, extension normal, SB 20 deg bilateral, rotation 30 degrees bilateral Flexibility: bilateral cervical paraspinal muscle tightness and upper trapezius muscle tightness Strength: bilateral scapular 4-/5, shoulder flexion 4/5, abduction 4/5 Palpation: increased upper trapezius muscle tone Treatment: Education: HEP education with demonstration, Educated on Eval Findings and POC Manual Therapy: (15 minutes) cervical SOR, bilateral UT str. Passive ROM to cervical spine minding fusions, Soft Tissue Mobilization, Myofascial Release to anterior neck and upper chest musculature. Muscle Energy Technique, Neural Mobilization, Myofascial Cupping, Dry Needling, IASTM, and Scar mobilization Therapeutic Exercise: (30 minutes) Thoracic and cervical exercises instructed to improve mobility and spinal stability. exercises in grid; Strength, Endurance, Flexibility, ROM, HEP, Neural Mobilization, Power, and Core Stability UBE (3/3 minutes) Therapeutic Activity: Exercises to improve dynamic activities, functional tasks, functional mobility to return to prior activity level Neuromuscular re-education: (10 Minutes) Instructions to improve postural stability and scapular positioning needed to reduce strain on neck. Tactile cues to reduce IT involvement. Balance Training, Muscle Facilitation, Dynamic Stability, Core Stabilization, and Blood Flow Restriction Training (BFRT) Modalities: Heat, Ice, Electrical Stimulation, Ultrasound, Cervical Mechanical Traction, Lumbar Mechanical Traction, Iontophoresis, and Fluidotherapy Assessment: Pt. Has participated in 6 PT session with start of POC on 09/11 for neck pain and UE weakness. Pt. Demonstrates good progress toward PT goals to help improve his quality of life. Weekly improvement in his UE strength. Outcome Measure: Neck Index 18 Short Term Goal: To be met in 2 weeks Goal 1: Pt to be instructed in home exercise program. 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 Goal 2: Pt. Will report of 0/10 neck pain while performing household tasks to help improve his quality of life. Goal 3: Pt. Will demonstrate normal upper trapezius muscle flexibility to help decrease pain and improve his functional mobility. Goal 4: Pt. Will demonstrate 5/5 scapular muscle strength to allow him to lift/carry objects to help improve his functional mobility. Goal 5: Pt. Will demonstrate 5/5 shoulder strength grossly in all planes to allow him to lift/carry objects to help improve his functional mobility with daily tasks. Pt will benefit from skilled PT for 1-3x/week from 09/11/24 to 11/20/24 to address the above impairments. I hereby deem this POC medically necessary. Please sign below. Date: documented in this encounter [facility] 09-17-2024 History of Presen t illness Narrative Physical Therapy Treatment Visit Patient Name: Vick Mercado Today's Date: 09/17/2024 Encounter Diagnoses Name Primary? Cervical paraspinal muscle spasm Yes Visit number: 3 Timed Code Treatment Minutes: 53 minutes Total Treatment Time: 53 minutes Time In: 0800 Time Out: 0853 History: Pt. Presents to PT with c/c of neck pain which started 3-4 weeks ago. Pain starts in neck and refers into jaw, anterior neck and chest. Has difficulty lifting objects and feels he gets tired a lot fast than normal. Reports neck pain wakes him up at night. Decreased sensation in his left index and middle finger. Pt. Goal is to improve neck flexibility and strength. Precautions: C3-C6 cervical spine fusion Subjective: Pt. Reports of slightly less neck pain throughout the day. Pain: 3/10; pain increases throughout the day Objective: PT Evaluation (09/11/24) Neck ROM: flexion normal, extension normal, SB 20 deg bilateral, rotation 30 degrees bilateral Flexibility: bilateral cervical paraspinal muscle tightness and upper trapezius muscle tightness Strength: bilateral scapular 4-/5, shoulder flexion 4/5, abduction 4/5 Palpation: increased upper trapezius muscle tone Treatment: Education: HEP education with demonstration, Educated on Eval Findings and POC Manual Therapy: (23 minutes) cervical SOR, bilateral UT str. Passive ROM to cervical spine minding fusions, Soft Tissue Mobilization, Myofascial Release to anterior neck and upper chest musculature. Muscle Energy Technique, Neural Mobilization, Myofascial Cupping, Dry Needling, IASTM, and Scar mobilization Therapeutic Exercise: (30 minutes) Thoracic and cervical exercises instructed to improve mobility and spinal stability. exercises in grid; Strength, Endurance, Flexibility, ROM, HEP, Neural Mobilization, Power, and Core Stability UBE (3/3 minutes) Therapeutic Activity: Exercises to improve dynamic activities, functional tasks, functional mobility to return to prior activity level Neuromuscular re-education: Balance Training, Muscle Facilitation, Dynamic Stability, Core Stabilization, and Blood Flow Restriction Training (BFRT) Modalities: Heat, Ice, Electrical Stimulation, Ultrasound, Cervical Mechanical Traction, Lumbar Mechanical Traction, Iontophoresis, and Fluidotherapy Assessment: Pt. Has participated in 3 PT session with start of POC on 09/11 for neck pain and UE weakness. Pt. Demonstrates good response to PT treatment to help improve muscle flexibility. Good tolerance with ther ex to improve scapular muscle strength. Outcome Measure: in chart Short Term Goal: To be met in 2 weeks Goal 1: Pt to be instructed in home exercise program. 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 Goal 2: Pt. Will report of 0/10 neck pain while performing household tasks to help improve his quality of life. Goal 3: Pt. Will demonstrate normal upper trapezius muscle flexibility to help decrease pain and improve his functional mobility. Goal 4: Pt. Will demonstrate 5/5 scapular muscle strength to allow him to lift/carry objects to help improve his functional mobility. Goal 5: Pt. Will demonstrate 5/5 shoulder strength grossly in all planes to allow him to lift/carry objects to help improve his functional mobility with daily tasks. Pt will benefit from skilled PT for 1-3x/week from 09/11/24 to 11/20/24 to address the above impairments. I hereby deem this POC medically necessary. Please sign below. Date: documented in this encounter [facility] 09-11-2024 History of Presen t illness Narrative Physical Therapy Evaluation Visit Patient Name: Vick Mercado Today's Date: 09/11/2024 Encounter Diagnoses Name Primary? Cervical paraspinal muscle spasm Yes Visit number: 1 Timed Code Treatment Minutes: 60 minutes Total Treatment Time: 60 minutes Time In: 829 Time Out: 929 History: Pt. Presents to PT with c/c of neck pain which started 3-4 weeks ago. Pain starts in neck and refers into jaw, anterior neck and chest. Has difficulty lifting objects and feels he gets tired a lot fast than normal. Reports neck pain wakes him up at night. Decreased sensation in his left index and middle finger. Pt. Goal is to improve neck flexibility and strength. Precautions: C3-C6 cervical spine fusion Subjective Pain: 2-5/10; pain increases throughout the day Objective: PT Evaluation (09/11/24) Neck ROM: flexion normal, extension normal, SB 20 deg bilateral, rotation 30 degrees bilateral Flexibility: bilateral cervical paraspinal muscle tightness and upper trapezius muscle tightness Strength: bilateral scapular 4-/5, shoulder flexion 4/5, abduction 4/5 Palpation: increased upper trapezius muscle tone Treatment: PT evaluation (20 minutes) Education: HEP education with demonstration, Educated on Eval Findings and POC Manual Therapy: (10 minutes) cervical SOR, bilateral UT str. Passive ROM, Joint mobilization, Soft Tissue Mobilization, Myofascial Release, Muscle Energy Technique, Neural Mobilization, Myofascial Cupping, Dry Needling, IASTM, and Scar mobilization Therapeutic Exercise: (16 minutes) exercises in grid; Strength, Endurance, Flexibility, ROM, HEP, Neural Mobilization, Power, and Core Stability UBE (3/3 minutes) Therapeutic Activity: Exercises to improve dynamic activities, functional tasks, functional mobility to return to prior activity level Neuromuscular re-education: Balance Training, Muscle Facilitation, Dynamic Stability, Core Stabilization, and Blood Flow Restriction Training (BFRT) Modalities: Heat, Ice, Electrical Stimulation, Ultrasound, Cervical Mechanical Traction, Lumbar Mechanical Traction, Iontophoresis, and Fluidotherapy Assessment: Pt. Has participated in 1 PT session with start of POC on 09/11 for neck pain and UE weakness. Pt. Will benefit from skilled PT services. Outcome Measure: in chart Short Term Goal: To be met in 2 weeks Goal 1: Pt to be instructed in home exercise program. Halfway Goals: To be met in 10 weeks Goal 1: Pt to report independence and compliance with home program. Goal 2: Pt. Will report of 0/10 neck pain while performing household tasks to help improve his quality of life. Goal 3: Pt. Will demonstrate normal upper trapezius muscle flexibility to help decrease pain and improve his functional mobility. Goal 4: Pt. Will demonstrate 5/5 scapular muscle strength to allow him to lift/carry objects to help improve his functional mobility. Goal 5: Pt. Will demonstrate 5/5 shoulder strength grossly in all planes to allow him to lift/carry objects to help improve his functional mobility with daily tasks. Pt will benefit from skilled PT for 1-3x/week from 09/11/24 to 11/20/24 to address the above impairments. I hereby deem this POC medically necessary. Please sign below. Date: documented in this encounter [facility] 07-30-2024 History of Lalita t illness Narrative Last seen by me 01/2024 and by Karlo Aldridge FRUIT TRIMMER in 03/2024 and I have reviewed notes by Karlo Aldridge FRUIT TRIMMER. Subjective : Interval review of systems is negative for chest discomfort pressure tightness heaviness palpitations lightheadedness orthopnea paroxysmal nocturnal dyspnea dependent edema or claudication TIA or CVA type symptoms or bleeding diathesis Seen by Karlo Aldridge 4 months ago. Echo laboratory data ordered. History so Far : COVID infection with respiratory symptoms December 2022 Systolic congestive 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 January 2023 class IV January 2023 [place] [facility] [place] [facility] [place]iac cath: LVEF 20% LVEDP was [...] 69 mmHg, LV end-systolic diameter 4.5 cm Echocardiogram 05/10/2024-LVEF 50 to 55% normal pattern of LV diastolic filling, left atrial size reported to be normal but measured at 4.7 cm, trace mitral regurgitation, trace tricuspid regurgitation, no pericardial effusion, LV end-systolic size 3.75 cm, PA pressure not estimated. Primary hypertension optimal in office No orthostatic [...] being measured enrolled in Coumadin clinic at [place]. Most recent INR 3.0, warfarin dose will [...] healthy lifestyle choices on overall cardiovascular health. longterm current use of 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 therapy CHADS VASc 3 Understands importance of anticoagulation, currently on warfarin DOACs are prohibitively expensive for him Acute on chronic systolic left 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, precipitated by atrial fibrillation with rapid ventricular rate, hospitalized October 2023, electrically cardioverted to sinus rhythm. Currently functional class II Obstructive sleep apnea syndrome Remains compliant with BiPAP Objective Wt Readings from Last 3 Encounters: 07/30/24 100 kg (221 lb 6.4 oz) 03/21/24 99.8 kg (220 lb) 01/30/24 99.8 kg (220 lb) Vitals: 07/30/24 1151 BP: 126/70 BP Location: Left arm Patient Position: Sitting Pulse: 78 Weight: 100 kg (221 lb 6.4 oz) Height: 1.791 m (5' 10.5 ) Physical Exam: GENERAL APPEARANCE: in no [...] Medication Instructions ALPRAZolam (Xanax) 0.5 mg tablet 2 times daily ascorbic acid, vitamin C, 500 mg capsule 1 capsule, Daily aspirin 81 mg, Daily carvedilol (COREG) 12.5 mg, 2 times daily (morning and late afternoon) cetirizine (ZYRTEC) 10 mg, Nightly digoxin (LANOXIN) 125 mcg, oral, Daily magnesium oxide 300 mg magnesium tablet 1 tablet, Nightly pantoprazole (PROTONIX) 40 mg, Daily before breakfast sacubitriL-valsartan (Entresto) 24-26 mg tablet 1 tablet, oral, 2 times daily selenium 50 mcg, Daily spironolactone (ALDACTONE) 12.5 mg, oral, Daily traMADol (Ultram) 50 mg tablet 1 tablet, Every 6 hours PRN warfarin (Coumadin) 1 mg tablet Take as directed by [facility] [facility] zinc acetate 25 mg (zinc) capsule 1 capsule, Daily Allergies Allergen Reactions Nsaids (Non-Steroidal Anti-Inflammatory Drug) Unknown Tpoimnq-Bbd-Vau Reductase Inhibitors Unknown LABS: Laboratory data July 2024-hemoglobin 14.1 hematocrit 41, platelets 2 90,000 Patient Active Problem List Diagnosis Date Noted Pre-operative examination 01/30/2024 BMI 31.0-31.9,adult 01/30/2024 Sinus bradycardia 01/30/2024 Hospital discharge follow-up 11/10/2023 Personal history of COVID-19 09/29/2023 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 congestive 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, NYHA class 2 09/29/2023 Medication course changed 09/29/2023 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 Non-ischemic cardiomyopathy (Multi) Follow Up In Cardiology 2. Persistent atrial fibrillation (Multi) 3. Hypertension, benign 4. 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 congestive 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, NYHA class 2 5. 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 BMI 31.0-31.9,adult 7. Former smoker 8. Lipid screening At this point, we can try discontinuing the furosemide. Currently takes it once a day. No evidence of volume overload. 6-month follow-up 2-week [facility] prior to next visit. ? Discontinue anticoagulation-will discuss further at next visit. Follow up : 6 months Provider Attestation - Scribe documentation All medical record entries made by the Scribe were at my direction and personally dictated by me. I have reviewed the chart and agree that the record accurately reflects my personal performance of the history, physical exam, discussion and plan. Scribe Attestation By signing my name below, I, Chioma Del Rosario LPN , Marlo attest that this documentation has been prepared under the direction and in the presence of Mary Neal MD. documented in this encounter [facility] Work Phone: 07-30-2024 Instructions Chioma Sewell LPN - 07/30/2024 11:45 AM EDT Please bring all medicines, vitamins, and herbal supplements with you when you come to the office. Prescriptions will not be filled unless you are compliant with your follow up appointments or have a follow up appointment scheduled as per instruction of your physician. Refills should be requested at the time of your visit. BMI was above normal measurement. Current weight: 100 kg (221 lb 6.4 oz) Weight change since last visit (-) denotes wt loss 1.4 lbs Weight loss needed to achieve BMI 25: 45 Lbs Weight loss needed to achieve BMI 30: 9.8 Lbs Provided instructions on dietary changes. documented in this encounter [facility] Work Phone: 06-22-2024 Procedure note [facility] 01-30-2024 History of Presen t illness Narrative This is a follow-up from [...] 2023 class IV January 2023 [place] [facility] [place] cath: LVEF 20% LVEDP was [...] being measured enrolled in Coumadin clinic at [place]. Most recent INR 3.0, warfarin dose will [...] healthy lifestyle choices on overall cardiovascular health. longterm current use of 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 therapy CHADS VASc [...] 1 mg tablet Take as directed by [facility] warfarin (COUMADIN) 5 mg, oral, Every evening, Take as directed. zinc acetate 25 mg (zinc) capsule 1 capsule, oral, Daily Allergies Allergen Reactions Nsaids (Non-Steroidal Anti-Inflammatory Drug) Unknown Qzryzgu-Ivd-Mhj Reductase Inhibitors Unknown LABS: Reviewed PT and INR results CBC from October 2023. INR results have been labile. Patient Active Problem List Diagnosis Date Noted Pre-operative examination 01/30/2024 BMI 31.0-31.9,adult 01/30/2024 Sinus bradycardia 01/30/2024 Hospital discharge follow-up 11/10/2023 Personal history of COVID-19 09/29/2023 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 congestive 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, NYHA class 2 (Multi) 09/29/2023 Medication course changed 09/29/2023 longterm current use of 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 therapy 09/07/2023 Persistent [...] BMI 31.0-31.9,adult 6. Coronary artery disease involving ass[place]ibo[place] and [place] tribes coronary artery of ass[place] and [place] tribes heart without angina pectoris 7. Sinus bradycardia [...] MD. documented in this encounter [facility] Work Phone: 01-30-2024 Instructions Chioma Sewell [...] procedure. documented in this encounter [facility] Work Phone: 11-10-2023 History of Presen t illness Narrative Patient was most recently seen [...] 2023 class IV January 2023 presented to [facility] Cardiac cath: LVEF 20% LVEDP was [...] being measured enrolled in Coumadin clinic at [place]. Most recent INR 3.0, warfarin dose will [...] healthy lifestyle choices on overall cardiovascular health. 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 zinc acetate 25 mg (zinc) capsule 1 capsule, oral, Daily Allergies Allergen Reactions Nsaids (Non-Steroidal Anti-Inflammatory Drug) Unknown Crbqjge-Ick-Lec Reductase Inhibitors Unknown LABS: Reviewed comprehensive profile and CBC pertaining to hospital stay. 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 Hospital discharge follow-up 2. Persistent atrial fibrillation (CMS/HCC) 3. longterm current use of 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 therapy 4. Non-ischemic cardiomyopathy (CMS/HCC) Follow Up In Cardiology 5. 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 congestive 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, NYHA class 2 (CMS/HCC) Follow Up In Cardiology 6. Coronary artery disease involving ass[place]ibo[place] and [place] tribes coronary artery of ass[place] and [place] tribes heart without angina pectoris 7. Hypertension, benign 8. Former smoker 9. First-degree AV block Clinical discussion: Patient developed acute on chronic systolic left 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 and hypoxemic respiratory failure related to that, due to atrial fibrillation with rapid ventricular rate. Sustaining normal sinus rhythm and first-degree AV block W[place] interval today 226 ms Abnormal R wave [...] Scribe Attestation By signing my name below, IMonique LPN, Scribe attest that this documentation has [...] plan. documented in this encounter [facility] Work Phone: 11-10-2023 Instructions Nunu Graves [...] today documented in this encounter [facility] Work Phone: 09-29-2023 History of Presen t illness Narrative Patient is new to this provider. Previously seen by Dr. Lucio subsequently by Karlo Aldridge. Accompanied by to the office. is very helpful in coordination of care. Hard of hearing, however I was able to communicate quite well. 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 Previously had some perceived medication [...] and PT/INR today with Coumadin clinic in [place]. Denies any bleeding diathesis. 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 Most recent INR 3.0, warfarin dose will [...] healthy lifestyle choices on overall cardiovascular health. 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 Coronary artery disease involving ass[place] and [place] tribes coronary artery of [place] and [place] tribes heart without angina pectoris 6. SOB (shortness of breath) 7. Hypertension, benign 8. 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 Obstructive [...] Attestation By signing my name below, I, Kattyjesse Mckeon LPN , Scribe attest that this documentation has [...] exam, discussion and plan. Mary Neal MD [facility] documented in this encounter [facility] Work Phone: 09-29-2023 Instructions Katty Best [...] need weekly INR's for possible DCC, notify [facility] documented in this encounter [facility] Work Phone: 09-13-2023 Evaluation note Encounter Date Diagnosis Assessment Notes Sep, Chronic HFrEF (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 with reduced ejection fraction) (ICD-10 - I50.22) [facility]: LVEF 20%, mild CAD - 01/2023 Instructed [...] are maintaining regular scheduled appts with their dietetic aide. Discussed cardioversion following 4 wks of AC therapy to prevent thromboembolic events. Discussed repeat Echo/MUGA to assess LVEF Sep, JANETTE (obstructive sleep apnea) (ICD-10 - G47.33) AHI 39, Psat 83% This patient is aware of the benefits associated with JANETTE: With continued use, the patient reduces the risk for PA, CVA, HTN, cardiac dysrhythmias and sudden cardiac [...] index [BMI] 31.0-31.9, adult (ICD-10 - Z68.31) [employer] Other 12-09-2023 Evaluation note* Encounter Date Diagnosis Assessment Notes Treatment Notes Treatment Clinical Notes Sep, Lumbar spondylosis (ICD-10 - M47.816) [employer] Other 12-06-2023 Evaluation note* Encounter Date Diagnosis Assessment Notes Treatment Notes Treatment Clinical Notes Sep, Paroxysmal atrial fibrillation (ICD-10 - I48.0) [employer] Other 12-06-2023 Evaluation + Plan note* Assessment & Plan Note - FREDIS Flowers - 09/07/2023 9:51 AM ESTAssociated Problem(s): Obstructive sleep apnea syndrome Remains compliant with BiPAP [facility] Work Phone: [phone] 489-744912-06-2023 Miscellaneous Notes* Assessment & Plan Note - FREDIS Flowers - 09/07/2023 9:51 AM ESTAssociated Problem(s): Obstructive sleep apnea syndrome Remains compliant with BiPAP * Assessment & Plan Note - FREDIS Flowers - 09/07/2023 9:50 AM EST Associated Problem(s): 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 CRCL: 116 Provided with samples today and patient assistance forms [facility] Work Phone: [phone] 477-542512-06-2023 Evaluation + Plan note* Assessment & Plan Note - FREDIS Flowers - 09/07/2023 9:47 AM ESTAssociated Problem(s): Class 1 obesity with body mass index (BMI) of 30.0 to 30.9 in adult Reviewed the merits of healthy lifestyle choices on overall cardiovascular health. [facility] Work Phone: [phone]) [phone] Evaluation + Plan note* Assessment & Plan [...] in office today afib at 97 bpm [facility] Work Phone: [phone] 240-435112-06-2023 Evaluation + Plan note* Assessment & Plan [...] April 2023 but reports intolerance Narrow QRS [facility] Work Phone: [phone] 924-840712-06-2023 Evaluation + Plan note* Assessment & Plan Note - FREDIS Flowers - 09/07/2023 9:26 AM ESTAssociated Problem(s): Hypertension, benign optimal in office [facility] Work Phone: [phone] Evaluation + Plan note* Assessment & Plan Note - FREDIS Flowers - 09/07/2023 9:26 AM ESTAssociated Problem(s): Cardiac and Vasculature January [facility]: Normal coronaries, LVEF 20% January 2023 TTE LVEF 40 to 45% with hypokinesis of inferior lateral and basal apical [facility] Work Phone: [phone] 922-861112-04-2023 History of Present illness Narrative* FREDIS Flowers [...] Behavior: Behavior is cooperative. Allergies Allergen Reactions Hkxeqpo-Zzv-Sgl Reductase Inhibitors Unknown Current Outpatient Medications Medication [...] Cardiac and Vasculature January 2023 presented to [facility] Cardiac cath: Normal coronaries, LVEF 20% [...] healthy lifestyle choices on overall cardiovascular health. 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 Neal may consider cardioversion) Karol Aldridge MSN, RESIDENTIAL COLLECTIONS-MANAGER DEVELOPMENT, [facility] Please excuse any errors in grammar or translation related to this dictation. Voice recognition software was utilized to prepare this document. [facility]: [phone] 246-598512-04-2023 Instructions* Patient Instructions* FREDIS Flowers - 09/05/2023 [...] 3 weeks [facility]: [phone] Evaluation note* Encounter Date Diagnosis Assessment Notes Treatment Notes Treatment Clinical Notes May, ASHD (arteriosclerot ic heart disease) (ICD-10 - I25.10) This patient is stable without activity related CP, dyspnea or lightheadedness. They are instructed to continue exercise and AHA diet plan. May, Chronic HFrEF (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 with reduced ejection fraction) (ICD-10 - I50.22) [facility]: LVEF 20%, mild CAD - 01/2023 Instructed [...] use, the patient reduces the risk for PA, CVA, HTN, cardiac dysrhythmias and sudden cardiac [...] They may safely use Tylenol as needed. [employer] Other 07-14-2023 Evaluation note* Encounter Date Diagnosis Assessment Notes Treatment Notes Treatment Clinical Notes Apr, Chronic HFrEF (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 with reduced ejection fraction) (ICD-10 - I50.22) [facility]: LVEF 20%, mild CAD - 01/2023 [employer] Other 07-11-2023 Evaluation note* Encounter Date Diagnosis Assessment Notes Treatment Notes Treatment Clinical Notes Apr, JANETTE (obstructive sleep apnea) (ICD-10 - G47.33) AHI 39, Psat 83% [employer] Other 06-04-2023 Evaluation note* Encounter Date Diagnosis Assessment Notes Treatment Notes Treatment Clinical Notes Mar, Primary hypertension (ICD-10 - I10) Mar, Cervical spondylosis (ICD-10 - M47.812) [employer] Other 06-04-2023 Evaluation note* Encounter Date Diagnosis Assessment Notes Treatment Notes Treatment Clinical Notes Mar, Cervical spondylosis (ICD-10 - M47.812) [employer] Other 05-31-2023 Discharge summary Author Papo Lucio [facility] March 02, 2023 3:18pm Note Date/Time March 02, 2023 3:16p m [facility] [address] [place] [address] Discharge Summary Signed Patient: Vick Mercado MR#: [id number] : 1955 Acct:[id number] Age/Sex: 67 / M Adm Date: 3 [...] Low-Cholesterol Additional Instructions: DISCHARGE INSTRUCTIONS FOR CARDIAC SENIOR CLINICAL CONSULTANT PHONE NUMBER OF YOUR PHYSICIAN: [phone] PROCEDURE: Heart Cath The following instructions have [...] cold, numb, blue or white, call the dietetic aide immediately. 4. ACTIVITY: You are advised to [...] bottle, follow the instructions on the bottle. [facility] is not responsible for incorrect prescription [...] By: <Electronically signed by Papo Lucio DO> 03/02/23 1518 [facility] Work Phone: [phone]) [phone] [facility] Evaluation note* Encounter Date Diagnosis Assessment Notes Treatment Notes Treatment Clinical Notes January, Nonischemic cardiomyopathy (ICD-10 - I42.8) January, Chronic HFrEF (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 with reduced ejection fraction) (ICD-10 - I50.22) [facility]: LVEF 20%, mild CAD - 01/2023 [employer] Other 05-30-2023 Evaluation note* Encounter Date Diagnosis [...] use, the patient reduces the risk for PA, CVA, HTN, cardiac dysrhythmias and sudden cardiac [...] fever. Call if any of these develop [employer] Other 05-10-2023 Evaluation note* Encounter Date Diagnosis Assessment Notes Treatment Notes Treatment Clinical Notes January, Subacute maxillary sinusitis (ICD-10 - J01.00) [employer] Other 05-09-2023 Evaluation note* Encounter Date Diagnosis [...] use, the patient reduces the risk for PA, CVA, HTN, cardiac dysrhythmias and sudden cardiac [...] PSA (prostate specific antigen) (ICD-10 - Z12.5) [employer] Other 03-15-2023 Evaluation note* Encounter Date Diagnosis [...] for congestion, Tylenol for pain and fever. [employer] Other 03-10-2023 Evaluation note* Encounter Date Diagnosis Assessment Notes Treatment Notes Treatment Clinical Notes Dec, Acute bronchitis due to other specified organisms (ICD-10 - J20.8) Instructed to use Robitussin or Mucinex for cough, saline or Flonase NS for congestion, Tylenol for pain and fever. Dec, Tachycardia (ICD-10 - R00.0) Avoid stimulants, caffiene and sudafed/ Hydrate Recommend ER evaluation w/ sustained tachycardia [employer] Other 02-25-2023 Evaluation note* Encounter Date Diagnosis Assessment Notes Treatment Notes Treatment Clinical Notes Nov, Lumbar spondylosis (ICD-10 - M47.816) [place] [employer] Other 06-29-2019 History and physical note Author Praveen Song [facility] June 22, 2024 10:56am Note Date/Time June 22, 2024 10:56[facility] [address] [place] [address] Gastroenterology H&P Signed Patient: Vick Mercado MR#: [id number] : 1955 Acct:[id number] Age/Sex: 69 / M Adm Date: 4 Loc: Room: Type: [facility] Attending Dr: Praveen Song MD Copies to: DO Praveen Crandall MD~ Date of Service: 06/22/2024 HISTORY & PHYSICAL: Patient's history with special attention to the cardiovascular, pulmonary systems and the current problem was reviewed with the patient immediately prior to the procedure. Present medications and doses reviewed in the EMR. Allergies and pertinent laboratory tests were also reviewedat this time in the EMR. The physical examination, as below, was then performed. Indication, assessment and HPI: 69-year-old male presents for EGD and colonoscopy to evaluate history of anemia, dysphagia. On Coumadin for A-fib, held for 7 days. Family history of GI malignancy? no PHYSICAL EXAMINATION Mouth and Pharynx : moist mucus membranes, normal dentition Cardiac: regular rate, regular rhythm Pulmonary: normal respiratory effort, able to speak in complete sentences Neurological: alert and oriented x3, no focal deficits noted Abdomen: Abdomen soft, non-tender REVIEW OF SYSTEMS Constitutional: Denies malaise, fevers Cardiovascular: Denies chest pain, palpitations Respiratory: Denies shortness of breath, wheezing Gastrointestinal: Per HPI Genitourinary: Denies dysuria, polyuria Musculoskeletal: Denies joint swelling, joint stiffness Neurological: Denies numbness, tingling Integumentary: Denies rashes, skin lesions Endocrine: Denies fatigue, weight loss Written informed consent obtained from the patient. Risks (including but not limited to perforation, infection, bloating, bleeding, need for emergent surgeryand loss of life), benefits and alternatives explained and questions answered. The patient verbalized understanding. Based on history patient is an appropriate candidate for the procedure. Praveen Song MD Documented By: Praveen Song MD 06/22/241055 Signed By: <Electronically signed by Praveen Song MD> 06/22/241055 [facility] Work Phone: Chief complaint+Reason for visit Narrative* Chief Complaint Deviated Septum, Sle ep Apnea New Referral sob Reason for Visit Acute on chronic sys tolic (congestive) 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 Atrial fibrillation with rapid ventricular response CHF (congestive 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) Cognitive decline Dental caries Hypertension Orthopnea Sleep apnea treated with nocturnal bilevel positive airway pressure (BPAP) [facility] Work Phone: Chief complaint+Reason for visit Narrative* Chief Complaint Deviated Septum, Sle ep Apnea New Referral Deviated Septum, Sleep Apnea sob [facility] Reason for Visit CHF (congestive hear t failure) Dental caries Hypertension Sleep apnea treated with nocturnal bilevel positive airway pressure (BPAP) Acute on chronic systolic (congestive) 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 Atrial fibrillation with rapid ventricular response Orthopnea [facility] Work Phone: Evaluation noteNo InformationNort [employer] Other Evaluation note* Diagnosis Onset Date Resolution Status CHF (congestive 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) acute Dyspnea, paroxysmal nocturnal acute Orthopnea acute Sleep apnea treated with noc turnal bilevel positive airway pressure (BPAP) acute [facility] Work Phone: Evaluation noteNo assessment information available [facility] Work Phone: Evaluation note* Diagnosis Dilated cardiomyopathy (CMS/HCC)- Primary Other primary cardiomyopathies Paroxysmal atrial fibrillation (CMS/HCC) Atrial fibrillation Hypertension, benign Essential hypertension, benign Obstructive sleep apnea syndrome Obstructive sleep apnea (adult) (pediatric) Class 1 obesity due to excess calories with serious comorbidity and body mass index (BMI) of 30.0 to 30.9 in adult longterm current use of 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 therapy documented in this encounter [facility] Work Phone: Evaluation note* Diagnosis Persistent atrial fibrillation (CMS/HCC) Atrial fibrillation Paroxysmal atrial fibrillation (CMS/HCC) Atrial fibrillation Non-ischemic cardiomyopathy (CMS/HCC) Other primary cardiomyopathies 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 congestive 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, NYHA class 2 (CMS/HCC) Coronary artery disease involving ass[place] and [place] tribes coronary artery of ass[place] and [place] tribes heart without angina pectoris SOB (shortness of breath) Shortness of breath Hypertension, benign Essential hypertension, benign longterm current use of 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 therapy Obstructive sleep apnea syndrome Obstructive sleep apnea (adult) (pediatric) Former smoker Personal history of tobacco use, presenting hazards to health Obesity (BMI 30.0-34.9) Personal history of COVID-19 Dilated cardiomyopathy (CMS/HCC) Other primary cardiomyopathies Medication course changed documented in this encounter [facility] Work Phone: Evaluation note* Diagnosis Onset Date Resolution Status Acute on chronic systolic (congestive) 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 acute Atrial fibrillation with rapid ventricular response acute CHF (congestive 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) acute Cognitive decline acute Dental caries acute Hypertension acute Orthopnea acute Sleep apnea treated with noc turnal bilevel positive airway pressure (BPAP) acute [facility] Work Phone: Evaluation note* Diagnosis Hospital discharge follow-up Other follow-up examination Persistent atrial fibrillation (CMS/HCC) 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 Non-ischemic cardiomyopathy (CMS/HCC) Other primary cardiomyopathies 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 congestive 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, NYHA class 2 (CMS/HCC) Coronary artery disease involving ass[place]ibo[place] and [place] tribes coronary artery of ass[place] and [place] tribes heart without angina pectoris Hypertension, benign Essential hypertension, benign Former smoker Personal history of tobacco use, presenting hazards to health documented in this encounter [facility] Work Phone: Evaluation note* Diagnosis Onset Date Resolution Status CHF (congestive 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) acute Dental caries acute Hypertension acute Sleep apnea treated with noc turnal bilevel positive airway pressure (BPAP) acute Acute on chronic systolic (congestive) 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 resolved Atrial fibrillation with rapid ventricular response resolved Orthopnea resolved [facility] Work Phone: Evaluation note* Diagnosis 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 congestive 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, NYHA class 2 (Multi) Persistent atrial fibrillation (Multi) Atrial fibrillation Pre-operative examination Unspecified pre-operative examination Former smoker Personal history of tobacco use, presenting hazards to health BMI 31.0-31.9,adult Coronary artery disease involving [place] and [place] tribes coronary artery of [place] and [place] heart without angina pectoris Sinus bradycardia Other specified cardiac dysrhythmias Non-ischemic cardiomyopathy (Multi) Other primary cardiomyopathies Hypertension, benign Essential hypertension, benign documented in this encounter [facility] Work Phone: Evaluation note* Diagnosis Onset Date Resolution Status ASHD (arteriosclerotic heart disease) acute Atrial fibrillation acute Chronic HFrEF (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 with reduced ejection fraction) acute Elevated cholesterol acute Hypertension acute Nonischemic cardiomyopathy a cute JANETTE (obstructive sleep apnea) acute [facility] Work Phone: Evaluation note* Diagnosis 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 congestive 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, NYHA class 2 (Multi) Persistent atrial fibrillation (Multi) Atrial fibrillation Non-ischemic cardiomyopathy (Multi) Other primary cardiomyopathies documented in this encounter [facility] Work Phone: Evaluation note* Diagnosis Onset Date Resolution Status Atrial fibrillation acute Elevated cholesterol acute HALEY (generalized anxiety disorder) acute Heart failure with improved ejection fraction (HFimpEF) acute Hypertension acute Nonischemic cardiomyopathy a cute JANETTE (obstructive sleep apnea) acute Medicare annual wellness visit, subsequent noneactive Screening PSA (prostate specific antigen) noneactive Screening for colon cancer n oneactive [facility] Work Phone: evaluation note* Diagnosis Onset Date Resolution Status Atrial fibrillation acute Elevated cholesterol acute HALEY (generalized anxiety disorder) acute Heart failure with improved ejection fraction (HFimpEF) acute Hypertension acute Nonischemic cardiomyopathy a cute JANETTE (obstructive sleep apnea) acute Medicare annual wellness visit, subsequent noneactive Screening PSA (prostate specific antigen) noneactive Screening for colon cancer n oneactive Atrial fibrillation acute Heart failure with improved ejection fraction (HFimpEF) acute Hypertension acute Nonischemic cardiomyopathy [facility] Work Phone: Evaluation note* Diagnosis Onset Date Resolution Status Atrial fibrillation acute Elevated cholesterol acute HALEY (generalized anxiety disorder) acute Heart failure with improved ejection fraction (HFimpEF) acute Hypertension acute Nonischemic cardiomyopathy a cute JANETTE (obstructive sleep apnea) acute Medicare annual wellness visit, subsequent noneactive Screening PSA (prostate specific antigen) noneactive Screening for colon cancer n oneactive Anemia acute Atrial fibrillation acute Heart failure with improved ejection fraction (HFimpEF) acute Hypertension acute Nonischemic cardiomyopathy a [facility] Work Phone: Evaluation note* Diagnosis Dilated cardiomyopathy (Multi)- Primary Other primary cardiomyopathies Paroxysmal atrial fibrillation (Multi) Atrial fibrillation Hypertension, benign Essential hypertension, benign Obstructive sleep apnea syndrome Obstructive sleep apnea (adult) (pediatric) Class 1 obesity due to excess calories with serious comorbidity and body mass index (BMI) of 30.0 to 30.9 in adult longterm current use of 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 therapy Non-ischemic cardiomyopathy (Multi) Other primary cardiomyopathies Persistent atrial fibrillation (Multi) Atrial fibrillation Hypertension, benign Essential hypertension, benign 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 congestive 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, 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 2 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 BMI 31.0-31.9,adult Former smoker Personal history of tobacco use, presenting hazards to health Lipid screening Screening for lipoid disorders documented in this encounter [facility] Work Phone: Evaluation note* Diagnosis Cervical paraspinal muscle spasm- Primary Spasm of muscle documented in this encounter [facility] HealthcareEvaluation note* Diagnosis Cervical paraspinal muscle spasm- Primary Spasm of muscle documented in this encounter [facility] HealthcareEvaluation note* Diagnosis Cervical paraspinal muscle spasm- Primary Spasm of muscle documented in this encounter [facility] HealthcareEvaluation note* Diagnosis Cervical paraspinal muscle spasm- Primary Spasm of muscle documented in this encounter [facility] HealthcareEvaluation note* Diagnosis Cervical paraspinal muscle spasm- Primary Spasm of muscle documented in this encounter [facility] HealthcareEvaluation note* Diagnosis Cervical paraspinal muscle spasm- Primary Spasm of muscle documented in this encounter [facility] HealthcareEvaluation note* Diagnosis Dilated cardiomyopathy (Multi)- Primary Other primary cardiomyopathies Paroxysmal atrial fibrillation (Multi) Atrial fibrillation Hypertension, benign Essential hypertension, benign Obstructive sleep apnea syndrome Obstructive sleep apnea (adult) (pediatric) Class 1 obesity due to excess calories with serious comorbidity and body mass index (BMI) of 30.0 to 30.9 in adult longterm current use of 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 therapy Pre-operative examination Unspecified pre-operative examination Medically noncompliant Medication course changed 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 congestive 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, NYHA class 2 Atrial fibrillation, currently in sinus rhythm Abnormal EKG Nonspecific abnormal electrocardiogram (ECG) (EKG) White coat syndrome with diagnosis of hypertension longterm current use of 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 therapy Obstructive sleep apnea syndrome Obstructive sleep apnea (adult) (pediatric) Non-ischemic cardiomyopathy (Multi) Other primary cardiomyopathies Former smoker Personal history of tobacco use, presenting hazards to health Body mass index (BMI) 30.0-30.9, adult documented in this encounter [facility] Work Phone: History general Narrative - Reported* Type Description Date Medical History fusion c4 5 6 7 Medical History ruptured liver/ hep c Medical History gall bladder Medical History kidney stones Surgical History rotator cuff repair Surgical History broken jaw Surgical History amputated fingers Hospitalization History see above [employer] Other History general Narrative - Reported* Type Description Date Medical History fusion c4 5 6 7 Medical History ruptured liver/ hep c Medical History gall bladder Medical History kidney stones Medical History Nonischemic Cardiomyopathy Medical History HFrEF Surgical History rotator cuff repair Surgical History broken jaw Surgical History amputated fingers Surgical History [facility] 01/2023 Hospitalization History see above [employer] Other Hisegdy general Narrative - Reported* Type Description Date Medical History fusion c4 5 6 7 Medical History ruptured liver/ hep c Medical History gall bladder Medical History kidney stones Medical History Nonischemic Cardiomyopathy Medical History HFrEF Medical History JANETTE Surgical History rotator cuff repair Surgical History broken jaw Surgical History amputated fingers Surgical History [facility] 01/2023 Hospitalization History see above [employer] Other Hisghqk general Narrative - Reported* Type Description Date Medical History fusion c4 5 6 7 Medical History ruptured liver/ hep c Medical History gall bladder Medical History kidney stones Medical History Nonischemic Cardiomyopathy Medical History HFrEF Medical History JANETTE Surgical History rotator cuff repair Surgical History broken jaw Surgical History amputated fingers Surgical History [facility] 01/2023 Surgical History CHF 01/2023 Hospitalization History see above [employer] Other Hisujja general Narrative - Reported* Type Description Date Medical History fusion c4 5 6 7 Medical History ruptured liver/ hep c Medical History gall bladder Medical History kidney stones Medical History Nonischemic Cardiomyopathy Medical History HFrEF Medical History JANETTE Medical History Atrial fibrillation Surgical History rotator cuff repair Surgical History broken jaw Surgical History amputated fingers Surgical History [facility] 01/2023 Surgical History CHF 01/2023 Hospitalization History see above [employer] Other History of Present illness Narrative* The [...] medication regimen. He denies medication side effects. [id number] DO Work Phone: History of Present [...] medication regimen. He denies medication side effects. [facility] DO Work Phone: Hospital Discharge instructions Additional Instructions DISCHARGE INSTRUCTIONS FOR CARDIAC SENIOR CLINICAL CONSULTANT PHONE NUMBER OF YOUR PHYSICIAN: [phone] PROCEDURE: Heart Cath The following instructions have [...] cold, numb, blue or white, call the dietetic aide immediately. 4. ACTIVITY: You are advised to [...] bottle, follow the instructions on the bottle. [facility] is not responsible for incorrect prescription information provided by the patient during their visit. Do not stop your medications without consulting your health care provider. Please take the list with you to your next doctor's appointment.[facility] Work Phone: InstructionsNot on filedocumented in this encounter [facility] [employer] [facility] for referral (narrative)* Consultation (Routine) - Authorized Specialty Diagnoses / Procedures Referred By Brandee silver Referred To Contact Cardiology Diagnoses Non-ischemic cardiomyopathy (CMS/HCC) 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 congestive 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, NYHA class 2 (CMS/HCC) Procedures Follow Up In Cardiology Mary Neal MD [address] [place] [id number] Mary Neal MD [address] [place] [address] [address] [place] [address] Referral ID Status Reason Start Date Expiration Date V isits Requested Visits Authorized [id number] Authorized 09/29/2023 09/28/2024 1 1 [facility] Work Phone: Reason for referral (narrative)* Consultation (Routine) - Authorized Specialty Diagnoses / Procedures Referred By Contac t Referred To Contact Cardiology Diagnoses 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 congestive 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, NYHA class 2 (CMS/HCC) Persistent atrial fibrillation (CMS/HCC) Procedures Follow Up In Cardiology Mary Neal MD [address] [facility] [address] [place] [address] Mary Neal MD 254 [facility] [address] [place] [address] Referral ID Status Reason Start Date Expiration Date V isits Requested Visits Authorized [id number] Authorized 11/10/2023 11/09/2024 1 1 [facility] Work Phone: Reason for visit Narrative* Rehabilitation - Outpatient (Routine) - Authorized Specialty Diagnoses / Procedures Referred By Contac t Referred To Contact Physical Therapy Diagnoses Spondylolysis, cervical region Procedures [place] PHYSICAL THERAPY EVALUATION LOW COMPLEX 20 MINS [place] OFFICE/OUTPATIENT [facility] Jairo Corbin MD [address] [place] [address] Phone: tel: fax: [facility] [address] [address] Phone: tel: fax: Referral ID Status Reason Start Date Expiration Date V isits Requested Visits Authorized [id number] Authorized 09/06/2024 10/02/2024 30 30 [facility]Reason for [facility] Narrative* Rehabilitation - Outpatient (Routine) - Authorized Specialty Diagnoses / Procedures Referred By Contac t Referred To Contact Physical Therapy Diagnoses Spondylolysis, cervical region Procedures WV THER PX 1/> AREAS EACH 15 MIN NEUROMUSC REEDUCA W[place] THERAPEUTIC PX 1/> AREAS EACH 15 MIN EXERCISES WV MANUAL THERAPY TQS 1/> REGIONS EACH 15 MINUTES PHYS/OCC THERAPY Jairo Corbin MD [address] [place] [address] Phone: tel: fax: [facility] [address] [address] Phone: tel: fax: Referral ID Status Reason Start Date Expiration Date V isits Requested Visits Authorized [id number] Authorized 10/03/2024 11/03/2024 30 30 [facility] HealthcareReason for visit Narrative* Rehabilitation - Outpatient (Routine) - Authorized Specialty Diagnoses / Procedures Referred By Contac t Referred To Contact Physical Therapy Diagnoses Spondylolysis, cervical region Procedures WV THER PX 1/> AREAS EACH 15 MIN NEUROMUSC REEDUCA WV THERAPEUTIC PX 1/> AREAS EACH 15 MIN EXERCISES WV MANUAL THERAPY TQS 1/> REGIONS EACH 15 MINUTES PHYS/OCC THERAPY SS Jairo Corbin MD [address] [place] [address] Phone: tel: fax: [facility] [address] [address] Phone: tel: fax: Referral ID Status Reason Start Date Expiration Date V isits Requested Visits Authorized [id number] Authorized 10/03/2024 10/02/2025 30 30 [facility] Chief Complaint and Reason for Visit Chief [...] (prostate specific antigen) Screening for colon cancer Chief Complaint 3 month follow up discuss recent test results and upcoming testing Reason for Visit Atrial fibrillation Elevated cholesterol HALEY (generalized anxiety disorder) Heart failure with improved ejection fraction (HFimpEF) Hypertension Nonischemic cardiomyopathy JANETTE (obstructive sleep apnea) Medicare annual wellness visit, subsequent Screening PSA (prostate specific antigen) Screening for colon cancer Atrial fibrillation Heart failure with improved ejection fraction (HFimpEF) Hypertension Nonischemic cardiomyopathy Chief Complaint 3 month follow up discuss recent test results and upcoming testing Screening, anemia Screening, anemia Reason for Visit Atrial fibrillation Elevated cholesterol HALEY (generalized anxiety disorder) Heart failure with improved ejection fraction (HFimpEF) Hypertension Nonischemic cardiomyopathy JANETTE (obstructive sleep apnea) Medicare annual wellness visit, subsequent Screening PSA (prostate specific antigen) Screening for colon cancer Anemia Atrial fibrillation Heart failure with improved ejection fraction (HFimpEF) Hypertension Nonischemic cardiomyopathy Family History No Family History Records Found [...] mellitus Unknown mother Unknown Malignant neoplasm Unknown Relationship Condition Age at Onset Recorded Date/T marielena father History of heart brad ve replacement with porcine valve Unknown Diabetes mellitus Unknown mother Multiple myeloma Unknown grandparent Myocardial infarction Unknown grandparent Leukemia Unknown mother Unknown Advance Directives No Advanced Directives Records [...] a day. 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 He denies any dyspnea on exertion, [...] Non-ischemic cardiomyopathy (Multi) Procedures Transthoracic Echo Complete [place] ECHO TTHRC R-T 2D W/WOM-MODE COMPL SPEC&COLR D Mary Neal MD 254 [facility] [address] [address] Referral ID Status Reason Start Date Expiration Date Visits Requested Visits Authorized [id number] Pending Review Perform Procedure 01/30/2024 01/29/2025 1 1 Specialty Diagnoses / Procedures Referred By Contac t Referred To Contact Cardiology Diagnoses Persistent atrial fibrillation (Multi) Procedures Follow Up In Cardiology Mary Neal MD 254 [facility] [address] [place] [address] Mray Neal MD [address] [place] [address] Ave [facility] [address] [place] [address] Referral ID Status Reason Start Date Expiration Date V isits Requested Visits Authorized [id number] Authorized 01/30/2024 01/29/2025 1 1 Specialty Diagnoses / Procedures Referred By Contac t Referred To Contact Diagnoses Persistent atrial fibrillation (Multi) Procedures ECG 12 Lead Mary Neal MD [address] [place] [address] Ave [facility] [address] [place] [address] Referral ID Status Reason Start Date Expiration Date V isits Requested Visits Authorized [id number] Authorized 01/30/2024 01/29/2025 1 1 Specialty Diagnoses / Procedures Referred By Contac t Referred To Contact Diagnoses Paroxysmal atrial fibrillation (CMS/HCC) Procedures ECG 12 Lead Karlo Aldridge, RESIDENTIAL COLLECTIONS-MANAGER DEVELOPMENT [address] [facility] [place] [address] [place] [address] Referral ID Status Reason Start Date Expiration Date V isits Requested Visits Authorized [id number] Pending Review 09/07/2023 09/06/2024 1 1 Specialty Diagnoses / Procedures Referred By Contac t Referred To Contact Cardiology Diagnoses Paroxysmal atrial fibrillation (CMS/HCC) Procedures Follow Up In Cardiology Karlo Aldridge, RESIDENTIAL COLLECTIONS-MANAGER DEVELOPMENT [address] [facility], [facility] [address] [place] [address] Mary Neal MD 254 [facility] [address] [place] [address] Referral ID Status Reason Start Date Expiration Date V isits Requested Visits Authorized [id number] Authorized 09/05/2023 09/04/2024 1 1 Additional Source Comments REASON FOR VISIT (unrecogniz ed section and content) Reason Onset Date Comments Missed PT 11/28/2024 FU 12/03/2024 Reason Comments Pre-op Clearance POC-Dr. Jun[facility], pending surgery date Specialty Diagnoses / Procedures Referred By Contac t Referred To Contact Diagnoses Pre-operative examination Procedures ECG 12 Lead Mary Neal MD [address] [facility] [address] [place] [address] Phone: tel: fax: Referral ID Status Reason Start Date Expiration Date V isits Requested Visits Authorized [id number] Authorized 11/30/2024 11/30/2025 1 1 Reason Comments Follow-up 4 month Specialty Diagnoses / Procedures Referred By Contac t Referred To Contact Cardiology Diagnoses Non-ischemic cardiomyopathy (Multi) Procedures Follow Up In Cardiology Karlo Aldridge, RESIDENTIAL COLLECTIONS-MANAGER DEVELOPMENT [address] [facility], [address] [address] [place] [address] Phone: tel: fax: Mary Neal MD [address] [facility] [address] [place] [address] Phone: tel: fax: Referral ID Status Reason Start Date Expiration Date V isits Requested Visits Authorized [id number] Authorized 03/21/2024 03/21/2025 1 1 Reason Comments Pre-op Clearance Dental Work / Specialty Diagnoses / Procedures Referred By Contac t Referred To Contact Cardiology Diagnoses 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 congestive 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, NYHA class 2 (Multi) Persistent atrial fibrillation (Multi) Procedures Follow Up In Cardiology Mary Neal MD [address] [facility] [address] [place] [address] Mary Neal MD 254 [facility] [address] [place] [address] Referral ID Status Reason Start Date Expiration Date V isits Requested Visits Authorized [id number] Authorized 11/10/2023 11/09/2024 1 1 Reason Comments Follow-[place] 6 weeks [facility] [place] [facility] Specialty Diagnoses / Procedures Referred By Contac t Referred To Contact Cardiology Diagnoses Non-ischemic cardiomyopathy (CMS/HCC) 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 congestive 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, NYHA class 2 (CMS/HCC) Procedures Follow Up In Cardiology Mary Neal MD [address] [facility] [address] [place] [address] Mary Neal MD 254 [facility] [address] [place] [address] Referral ID Status Reason Start Date Expiration Date V isits Requested Visits Authorized [id number] Authorized 09/29/2023 09/28/2024 1 1 TCM Reason Comments Follow-up 2wk Specialty Diagnoses / Procedures Referred By Contac t Referred To Contact Cardiology Diagnoses Paroxysmal atrial fibrillation (CMS/HCC) Procedures Follow Up In Cardiology Karlo Aldridge, RESIDENTIAL COLLECTIONS-MANAGER DEVELOPMENT [address] [facility], [address] [address] [place] [address] Mary Neal MD [address] [facility] [address] [place] [address] Referral ID Status Reason Start Date Expiration Date V isits Requested Visits Authorized [id number] Authorized 09/05/2023 09/04/2024 1 1 new referral Reason Comments Pre-op Clearance Follow-up Test results 3 month Follow upWellnessFRMCsinusesEye Issues/ Swelling on [id number] COVID +COVIDSick- [phone] Care Teams (unrecognized sec tion and content) [...] Provide r, Attending Provider Active Start: May 10, 2024 Team Status: Inactive Member Role Status Dates Jairo Corbin DO Primary Care Provide r, Attending Provider Active Start: May 30, 2024 End: May 30, 2024 Team Status: Inactive Member Role Status Dates Jairo Corbin DO Primary Care Provider Active Start: June 22, 2024 End: June 22, 2024 Praveen Song MD Attending Provider Active S tart: June 22, 2024 End: June 22, 2024 Team Status: Active Member Role Status Kaur Corbin DO Primary Care Provider Active Start: June 22, 2024 Praveen Song MD Attending Provider, Other Provider Active Start: June 22, 2024 Team Status: Active Member Role Status Dates Jairo Corbin DO Primary Care Provider Active Start: March 23, 2024 Karlo Aldridge APRN Attending Provider Active S tart: March 23, 2024 Team Status: Inactive Member Role Status Dates Jairo Corbin DO Primary Care Provider Active Shalom Azar , DO Emergency Provider Active Jair Harp [...] MD Other Provider Active Sravani Spears , [facility] Other Provider Active Sparkle Joseph MD Other Provider Active Team Status: Inactive Member Role Status Dates Jairo Corbin , Primary Care Provider Active Papo Lucio DO Attending Provider Active Team Status: Inactive Member Role Status Dates Jairo Corbin , Primary Care Provider Active Jairo Wild DO Attending Provider Active Family Independence Case Manager Relationship Specialty Start Date End Date ShaquilleJairo Ravimarly, DO [address] [facility] [address] [place] [id number] PCP - General Internal Medicine 08/23/23 Jairo Wild DO [address] [facility] [address] Referring Physician Otolaryngology 09/05/23 Family Independence Case Manager Relationship Specialty Start Date End Date Shaquille Jairo Lo DO [address] [facility] [place] [address] [place] [address] PCP - General Internal Medicine 08/23/23 Jairo Wild DO [address] [place] [address] Referring Physician Otolaryngology 09/05/23 Team Status: Inactive [...] Other Provider Active Start: October 21, 2023 Family Independence Case Manager Relationship Specialty Start Date End Date Jairo Corbin DO [address] [facility] [place] [address] PCP - General Internal Medicine 08/23/23 Jairo Wild DO [address] [place] [address] Referring Physician Otolaryngology 09/05/23 Team Status: Inactive Member Role Status Dates Jairo Corbin DO Primary Care Provider Active Start: September 13, 2023 End: September 13, 2023 Jairo Wild DO Attending Provider Active S tart: September 13, 2023 End: September 13, 2023 Team Status: Inactive Member Role Status Dates Jairo Corbin DO Attending Provider Active Sta rt: November 01, 2023 End: November 01, 2023 Family Independence Case Manager Relationship Specialty Start Date End Date Jairo Corbin DO [address] [place] [address] PCP - General Internal Medicine 01/30/24 Jairo Wild DO [address] [place] [address] Referring Physician Otolaryngology 09/05/23 Team Status: Inactive Member Role Status Dates Jairo Corbin DO Primary Care Provide r, Attending Provider Active Start: January 31, 2024 End: January 31, 2024 Family Independence Case Manager Relationship Specialty Start Date End Date Jairo Corbin DO [address] [place] [address] PCP - General Internal Medicine 01/30/24 Jairo Wild, DO [address] [place] [address] Referring Physician Otolaryngology 09/05/23 Family Independence Case Manager Relationship Specialty Start Date End Date Jairo Corbin DO [address] [place] [address] PCP - General Internal Medicine 01/30/24 Jairo Wild DO [address] [place] [address] Referring Physician Otolaryngology 09/05/23 Family Independence Case Manager Relationship Specialty Start Date End Date Jairo Corbin MD [address] [place] [id number] PCP - General Internal Medicine 04/06/23 Family Independence Case Manager Relationship Specialty Start Date End Date Jairo Corbin MD [address] [place] [id number] PCP - General Internal Medicine 04/06/23 Family Independence Case Manager Relationship Specialty Start Date End Date Jairo Corbin MD [address] [place] [id number] PCP - General Internal Medicine 04/06/23 Family Independence Case Manager Relationship Specialty Start Date End Date Jairo Corbin MD [address] [place] [id number] PCP - General Internal Medicine 04/06/23 Family Independence Case Manager Relationship Specialty Start Date End Date Jairo Corbin MD [address] [place] [facility] [place] [address] PCP - General Internal Medicine 04/06/23 Family Independence Case Manager Relationship Specialty Start Date End Date Jairo Corbin MD [address] [place] [facility] [place] [address] PCP - General Internal Medicine 04/06/23 Family Independence Case Manager Relationship Specialty Start Date End Date Jairo Corbin MD [address] [facility] [place] [address] PCP - General Internal Medicine 04/06/23 Family Independence Case Manager Relationship Specialty Start Date End Date Jairo Corbin MD [address] [place] [facility] [address] PCP - General Internal Medicine 04/06/23 Family Independence Case Manager Relationship Specialty Start Date End Date Jairo Corbin MD [address] [place] [facility] [address] PCP - General Internal Medicine 04/06/23 Family Independence Case Manager Relationship Specialty Start Date End Date Jairo Corbin MD [address] [place] [facility] [address] PCP - General Internal Medicine 04/06/23 Family Independence Case Manager Relationship Specialty Start Date End Date Jairo Corbin MD [address] [place] [facility] [place] [address] PCP - General Internal Medicine 04/06/23 Family Independence Case Manager Relationship Specialty Start Date End Date Jairo Corbin MD [address] [facility] [place] [phone] PCP - General Internal Medicine 04/06/23 Family Independence Case Manager Relationship Specialty Start Date End Date Jairo Corbin MD [address] [place] [address] PCP - General Internal Medicine 04/06/23 Family Independence Case Manager Relationship Specialty Start Date End Date Jairo Corbin DO [address] [place] [address] PCP - General Internal Medicine 01/30/24 Jairo Wild DO [address] [place] [address] Referring Physician Otolaryngology 09/05/23 (unrecognized sect ion and content) No Status Records FoundNo Status Records FoundNo Status Records FoundNo Status Records FoundNo Status Records FoundNo Status Records FoundNo Status Records FoundNo Status Records Found INFORMATION SOURCE (unrecogn ized section and content) DATE CREATED AUTHOR 03/14/2023 [facility] DATE CREATED AUTHOR AUTHOR'S ORGANIZ ATION 05/11/2023 [facility] DATE CREATED AUTHOR AUTHOR'S ORGANIZ ATION 06/18/2023 [employer] DATE CREATED AUTHOR AUTHOR'S ORGANIZ ATION 07/13/2023 [facility] DATE CREATED AUTHOR AUTHOR'S ORGANIZ ATION 02/17/2024 [facility] DATE CREATED AUTHOR AUTHOR'S ORGANIZ ATION 09/24/2024 [facility] DATE CREATED AUTHOR AUTHOR'S ORGANIZ ATION 12/02/2024 [facility] DATE CREATED AUTHOR AUTHOR'S ORGANIZ ATION 12/11/2024 [facility] EPIC Goals (unrecognized section and content) Goals may [...] BE BASED ON THE PRIMARY CLINICAL RECORDS. [facility]. provides no warranty or guarantee of the accuracy or completeness of information in this document.
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
[2024-12-24 17:38] LABS: Basophils Absolute Auto 0.1 10^3/uL (0.0-0.1); Basophils Percent Auto 0.5 % (0.2-2.0); Eosinophils Absolute Auto 0.3 10^3/uL (0.0-0.7); Eosinophils Percent Auto 2.5 % (0.9-7.0); Hemoglobin 13.8 g/dL (14.0-18.0); Immature Granulocytes Abs Auto 0.02 10^3/uL (0.00-0.03); Immature Granulocytes Pct Auto 0.2 % (0.0-0.5); Lymphocytes Absolute Auto 2.8 10^3/uL (1.2-3.8); Mean Corpuscular HGB Conc 34.5 g/dL (29.9-35.2); Mean Corpuscular Volume 89.9 fL (80.0-94.0); Mean Platelet Volume 9.6 fL (9.5-13.5); Monocytes Absolute Auto 1.1 10^3/uL (0.3-0.8); Monocytes Percent Auto 9.6 % (1.7-12.0); Neutrophils Absolute Auto 7.4 10^3/uL (1.4-6.5); Neutrophils Percent Auto 63.2 % (43.0-75.0); Platelet Count 239 10^3/uL (150-450); Red Blood Count 4.45 10^6/uL (4.70-6.10); Red Cell Distribution Width 12.2 % (11.0-15.0); White Blood Count 11.7 10^3/uL (4.0-11.0)
[2024-12-24 17:52] LABS: INR 1.03; Prothrombin Time 10.9 sec (9.0-11.6)
[2024-12-24 17:55] LABS: Anion Gap 12.5; BUN Creatinine Ratio 14.3; Calcium 9.3 mg/dL (8.5-10.1); Carbon Dioxide 27.4 mmol/L (21.0-32.0); Chloride 101 mmol/L (98-107); Estimated GFR (African America >60 (>=60 mL/min/1.73m^2); Estimated GFR (Non-African Ame >60 (>=60 mL/min/1.73m^2); Glucose 138 mg/dL (74-106); Potassium 3.9 mmol/L (3.5-5.1); Sodium 137 mmol/L (136-145)
[2024-12-24 17:56] LABS: Troponin I High Sensitivity 92.2 pg/mL (4.0-76.1)
[2024-12-24 18:46] LABS: Troponin I High Sensitivity 88.9 pg/mL (4.0-76.1)
--- NOTE | 2024-12-24 22:43 | ED_ITS ---
HPI HPI - General Adult General Chief complaint: Extremity Problem, Nontraumatic Stated complaint: ANKLE SWELLING, HOT, RED Time Seen by Provider: 12/24/24 16:48 Source: patient Mode of arrival: walk-in Limitations: no limitations History of Present Illness HPI narrative: 69-year-old male presented to the emergency department and was initially seen by Dr. Soni. Please see his full history and physical exam Related Data Home Medications ?Medication ?Instructions ?Recorded ?Confirmed alprazolam 0.5 mg tablet 0.5 mg PO Q8H PRN anxiety 12/24/24 12/24/24 carvedilol 6.25 mg tablet 6.25 mg PO Q12H 12/24/24 12/24/24 furosemide 20 mg tablet 40 mg PO DAILY 12/24/24 12/24/24 spironolactone 25 mg tablet 12.5 mg PO DAILY 12/24/24 12/24/24 valsartan 80 mg tablet 80 mg PO DAILY 12/24/24 12/24/24 warfarin 1 mg tablet 1 mg PO DAILY 12/24/24 12/24/24 Allergies Allergy/AdvReac Type Severity Reaction Status Date / Time No Known Drug Allergies Allergy Verified 12/24/24 16:57 Opioid HPI Opioid Management Most Recent Opioid Data: No Data to Display PFSH PFSH Social History Little interest or pleasure in doing things: not at all Feeling down, depressed, or hopeless: not at all Exam Constitutional Vital Signs, click to edit/add: Last Vital Signs Temp 98.2 F 12/24/24 16:58 Pulse 103 H 12/24/24 22:20 Resp 15 12/24/24 22:20 BP 148/89 H 12/24/24 22:22 Pulse Ox 95 12/24/24 21:00 O2 Del Method Room Air 12/24/24 16:58 Course Vital Signs Vital signs: Vital Signs Temperature 98.2 F 12/24/24 16:58 Pulse Rate 95 H 12/24/24 16:58 Respiratory Rate 18 12/24/24 16:58 Blood Pressure 181/93 H 12/24/24 16:58 Pulse Oximetry 97 12/24/24 16:58 Oxygen Delivery Method Room Air 12/24/24 16:58 Temperature 98.2 F 12/24/24 16:58 Pulse Rate 103 H 12/24/24 22:20 Respiratory Rate 15 12/24/24 22:20 Blood Pressure 148/89 H 12/24/24 22:22 Pulse Oximetry 95 12/24/24 21:00 Oxygen Delivery Method Room Air 12/24/24 16:58 Medical Decision Making MDM Narrative Medical decision making narrative: The patient has 2 elevated troponins, 92 and then 88. He does not seem to have had any chest pain and EKG shows no acute findings. Dopplers negative for DVT and CTA is negative for pulmonary embolism. He was given aspirin here. The patient is supposed to be on Coumadin but has not been taking it and has an INR of 1.0. I spoke to Dr. Rogers and Dr. Arango and the patient is excepted at [facility]. We discussed the use of heparin and have decided that it is not indicated at this point. He is stable and agreeable for transfer. Differential Diagnosis Differential Diagnosis: Myocardial infarction, myocarditis, PE Lab Data Lab results reviewed: Yes I reviewed the patient's lab results Labs: Lab Results 12/24/24 12/24/24 Range/Units 17:30 18:21 WBC 11.7 H (4.0-11.0) 10^3/uL RBC 4.45 L (4.70-6.10) 10^6/uL Hgb 13.8 L (14.0-18.0) g/dL Hct 40.0 L (42.0-54.0) % MCV 89.9 (80.0-94.0) fL MCH 31.0 (25.9-34.0) pg MCHC 34.5 (29.9-35.2) g/dL RDW 12.2 (11.0-15.0) % Plt Count 239 (150-450) 10^3/uL MPV 9.6 (9.5-13.5) fL Neut % (Auto) 63.2 (43.0-75.0) % Lymph % (Auto) 24.0 (20.5-60.0) % [place] % (Auto) 9.6 (1.7-12.0) % Eos % (Auto) 2.5 (0.9-7.0) % Baso % (Auto) 0.5 (0.2-2.0) % Neut # (Auto) 7.4 H (1.4-6.5) 10^3/uL Lymph # (Auto) 2.8 (1.2-3.8) 10^3/uL [place] # (Auto) 1.1 H (0.3-0.8) 10^3/uL Eos # (Auto) 0.3 (0.0-0.7) 10^3/uL Baso # (Auto) 0.1 (0.0-0.1) 10^3/uL Abs Immat Gran (auto) 0.02 (0.00-0.03) 10^3/uL Imm/Tot Granulo (auto) 0.2 (0.0-0.5) % PT 10.9 (9.0-11.6) sec INR 1.03 Sodium 137 (136-145) mmol/L Potassium 3.9 (3.5-5.1) mmol/L Chloride 101 (98-107) mmol/L Carbon Dioxide 27.4 (21.0-32.0) mmol/L Anion Gap 12.5 BUN 13.0 (7.0-18.0) mg/dL Creatinine 0.91 (0.70-1.30) mg/dL Est GFR ( Amer) >60 (>=60 mL/min/1.73m^2) Est GFR (Non-Af Amer) >60 (>=60 mL/min/1.73m^2) BUN/Creatinine Ratio 14.3 Glucose 138 H (74-106) mg/dL Calcium 9.3 (8.5-10.1) mg/dL Troponin I High Sens 92.2 H* 88.9 H* (4.0-76.1) pg/mL Imaging Data CTA chest: Radiologist's impression: Mild enlarged heart size, no pericardial effusion, very small right pleural effusion, no pulmonary embolus, no thoracic aortic aneurysm or dissection ECG Data Attestation: I personally reviewed and interpreted this ECG as follows: (EKG on my interpretation shows sinus rhythm without acute change and a rate of 88. A PVC is present.) Discharge Plan Discharge Chief Complaint: Extremity Problem, Nontraumatic Clinical Impression: Leg swelling, Ankle sprain, Elevated troponin Patient Disposition: [facility] Time of Disposition Decision: 22:43 Discharge Location: [facility] Condition: Fair Mode of Transportation: EMS
[2024-12-24] MEDS: ASPIRIN 81 MG TAB.CHEW PO (22:53)
[2024-12-25 00:10] VITALS: BP 150/88; PULSE 77; O2SAT 95
== END 2024-12-25 00:12 | disposition short-term general hospital (02) ==
PROVIDERS: Student in an Organized Health Care Education/Training Program; Emergency Provider Emergency Medicine; PCP Internal Medicine
DX: R79.89 Other specified abnormal findings of blood chemistry (principal); S93.402A Sprain of unspecified ligament of left ankle, initial encounter; R22.42 Localized swelling, mass and lump, left lower limb; X50.1XXA Overexertion from prolonged static or awkward postures, initial encounter; M25.572 Pain in left ankle and joints of left foot; Z79.01 Long term (current) use of 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s
CPT/HCPCS: 36415; 71045; 71275; 73610; 80048; 84484; 85025; 85610; 93005; 93971; 99285; Q9967

== ENCOUNTER 2025-01-01 05:27 | Outpatient (RCR) | payer MEDICARE, OTHER, SELFPAY | END 2025-01-30 15:45 | disposition home or self-care (01) | LOC: MM 05:27 | PROVIDERS: PCP Internal Medicine; Visit Provider Internal Medicine | DX: Z51.81 Encounter for therapeutic drug level monitoring (principal); Z79.01 Long term (current) use of 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s; I48.91 Unspecified atrial fibrillation ==

== ENCOUNTER 2025-01-31 04:40 | Outpatient (RCR) | payer MEDICARE, OTHER, SELFPAY | END 2025-03-01 15:19 | disposition home or self-care (01) | LOC: MM 04:40 | PROVIDERS: PCP Internal Medicine; Visit Provider Internal Medicine | DX: Z51.81 Encounter for therapeutic drug level monitoring (principal); Z79.01 Long term (current) use of 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s; I48.91 Unspecified atrial fibrillation ==

== ENCOUNTER 2025-03-03 08:04 | Outpatient (RCR) | payer MEDICARE, OTHER, SELFPAY | END 2025-03-05 10:12 | disposition home or self-care (01) | LOC: MM 08:04 | PROVIDERS: PCP Internal Medicine; Visit Provider Internal Medicine | DX: Z51.81 Encounter for therapeutic drug level monitoring (principal); Z79.01 Long term (current) use of 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s; I48.91 Unspecified atrial fibrillation ==

== ENCOUNTER 2025-05-16 08:40 | Outpatient (OUT) | payer MEDICARE, OTHER, SELFPAY ==
--- OUTSIDE RECORDS SUMMARY | 2025-05-10 16:00 | XMS_ITS | Encounter Summary ---
Author Organization [facility] Address [address] [place] [address] Phone Care Team Providers Care Principal Software Engineer Name Role Phone Junito Jairo Barros DO Unavailable [phone] Jairo Wilkins DO Primary Care Provider [phone] Reason for Referral * Consultation (Routine) - Authorized Specialty Diagnoses / Procedures Referred By Brandee silver Referred To Contact Cardiology Diagnoses Non-ischemic cardiomyopathy (Multi) Procedures Follow Up In Cardiology Bianca Aldridge APRN-CNP 703 [facility] 2, [address] [address] Phone: tel: fax: Mary Neal MD [address] [place] [address] [address] [place] [address] Phone: tel: fax: Referral ID Status Reason Start Date Expiration Date V isits Requested Visits Authorized [id number] Authorized 05/10/2025 05/10/2026 1 1 Reason for Visit * Reason Comments [place] [facility] [place]17 Encounter Details Date Type Department Care Team (Latest Contact Info) Description 05/10/2025 4:00 PM EDT Office Visit [facility] [address] [id number] Bianca Aldridge APRN-CNP 703 [facility] 2, [address] [place] [address] Medically noncompliant (Primary Dx); Non-ischemic cardiomyopathy (Multi); Persistent atrial fibrillation (Multi); residential current use of 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 therapy; Hypertension, benign; Body mass index (BMI) 30.0-30.9, adult; Obstructive sleep apnea syndrome Social History Tobacco Use Types Packs/Day Years Used Date Smoking Tobacco: Former Cigarettes Q uit: 1999 Smokeless Tobacco: Never Alcohol Use Standard Drinks/Week Comments Yes 7 (1 standard drink = 0.6 oz pur e alcohol) Sex and Gender Information Value Date Recorded Sex Assigned at Not on file Legal Sex Male 9:21 AM EDT Gender Identity Not on file Sexual Orientation Not on file documented as of this encounter Last Filed Vital Signs Vital Sign Reading Time Taken Comments Blood Pressure 120/60 05/10/2025 4:17 PM EDT Pulse 72 05/10/2025 4:17 PM EDT Temperature - - Respiratory Rate - - Oxygen Saturation - - Inhaled Oxygen Concentration - - Weight 97.5 kg (215 lb) 05/10/2025 4:17 PM EDT Height 179.1 cm (5' 10.5 ) 05/10/2025 4:17 PM ED T Body Mass Index 30.41 05/10/2025 4:17 PM EDT documented in this encounter Patient Instructions * Patient Instructions* Bianca Aldridge APRN-INDUSTRIAL ENGINEERING TECHNICIAN - 05/10/2025 4:00 PM EDT Please bring all medicines, vitamins, and herbal supplements with you when you come to the office. Prescriptions will not be filled unless you are compliant with your follow up appointments or have a follow up appointment scheduled as per instruction of your physician. Refills should be requested at the time of your visit. PLAN: Use through informed decision making process incorporating patients unique circumstances, the following treatment plan will be initiated: 1. Prescription drug management of cardiovascular medication for efficacy, adherence to treatment, side effect assessment and polypharmacy. Current treatment clinically warranted and to continue without modifications. 2. Return for follow-up; in the interim, contact the office if new symptoms arise. Dr. Neal 8 weeks documented in this encounter Progress Notes * FREDIS Flowers - 05/10/2025 4:00 PM EDT Chief Complaint Not doing too bad Reason for Visit Patient presents to the office today for outpatient follow-up for hospital follow up. Last evaluated in clinic by Dr. Neal January 2025. Presents today ambulatory with steady gait. Accompanied by spouse April 2025: Patient was recently hospitalized at [facility]. The patient was seen in Cardiology consult with subsequent cardiovascular management by [facility]. Hospitalization records have been reviewed. Reason for Cardiology Consultation: ADHF (in setting non-compliance) Consulting Sheep Or Calf Grader: Dr. Quijano Cardiovascular testing: Echocardiogram with mildly dilated being 40-45%. Changes to cardiovascular medical regimen at time of discharge: Increase carvedilol 6.25 mg twice daily, increased Entresto 49/50 mg twice daily and transitioned Coumadin over to Eliquis. Discharge disposition: Home with spouse Patient had then called into the office with inability to tolerate mid dose Entresto due to hypotension. Patient assistance forms have been completed for Entresto and Eliquis. History of Present Illness Patient presents to the office today with no voiced cardiovascular complaints. I believe prior to the hospital stay he had been backing off of my heart medications for unclear reasons. Over approximately 2 months he had a slow but steady increase of edema with eventual orthopnea. He was diuresed approximately 16 pounds during hospitalization and has been maintaining euvolemic weight at home of approximately 213 pounds. On lower dose of Entresto he feels like he is improving . He is going down his basement stairs, is trying to ride his recumbent bike. He ambulated in from the parking lot without concerns. Patient reports that overall has no complaint(s) of chest pain, chest pressure/discomfort, claudication, dyspnea, exertional chest pressure/discomfort, fatigue, irregular heart beat, lower extremity edema, and near-syncope Daily activity: > 4 METs Denies any change in exercise capacity or functional tolerance since last office visit. Review of Systems Cardiovascular: Negative for chest pain, dyspnea on exertion, irregular heartbeat, leg swelling, near-syncope, orthopnea, palpitations, paroxysmal nocturnal dyspnea and syncope. Visit Vitals BP 120/60 (BP Location: Left arm, Patient Position: Sitting) Pulse 72 Ht 1.791 m (5' 10.5 ) Wt 97.5 kg (215 lb) BMI 30.41 kg/m?? Smoking Status Former BSA 2.2 m?? Physical Exam Vitals and nursing note reviewed. Constitutional: Appearance: Normal appearance. Cardiovascular: Rate and Rhythm: Normal rate and regular rhythm. Heart sounds: Normal heart sounds. Pulmonary: Effort: [...] Affect: Mood normal. Behavior: Behavior is cooperative. ALLERGIES: Nsaids (non-steroidal anti-inflammatory drug), Aqyjrin-iav-mhx reductase inhibitors, and Spironolactone Current Outpatient Medications Medication Instructions ALPRAZolam (Xanax) 0.5 mg tablet 2 times daily apixaban (ELIQUIS) 5 mg, 2 times daily ascorbic acid, vitamin C, 500 mg capsule 1 capsule, Daily aspirin 81 mg, Daily b complex 0.4 mg tablet 1 tablet, Daily BLUE-GREEN ALGAE, SPIRULINA, ORAL 1,000 mg, Daily carvedilol (COREG) 6.25 mg, oral, 2 times daily (morning and late afternoon) cholecalciferol (VITAMIN D3) 125 mcg, Daily COQ10, UBIQUINOL, ORAL 1 capsule, Daily furosemide (Lasix) 20 mg tablet 2 tablets, Every 12 hours scheduled (0630,1830) ivermectin (STROMECTOL) 6 mg, 2 times daily lactobacillus combination no.4 (Probiotic) 3 billion cell capsule 1 capsule, Daily magnesium oxide 300 mg magnesium tablet 1 tablet, Nightly melatonin 5 mg capsule 1 capsule, Nightly PRN niacinamide 500 mg, Daily pantoprazole (PROTONIX) 40 mg, As needed sacubitriL-valsartan (Entresto) 24-26 mg tablet 1 tablet, 2 times daily selenium 50 mcg, Daily traMADol (Ultram) 50 mg tablet 1 tablet, Every 6 hours PRN vit C/zinc/Panax ginseng/hrb62 (IMMUNE SUPPORT COMPLEX ORAL) 1 capsule, Daily Assessment: Obstructive sleep apnea syndrome Not able to tolerate CPAP Medically noncompliant Prior to April 2025 hospitalization due to ADHF patient had been backing off my heart meds Cardiac and Vasculature January 2023 [place] [facility] [place] Cardiac cath: Normal coronaries, LVEF 20% January 2023 TTE LVEF 40 to 45% with hypokinesis of inferior lateral and basal apical Hypertension, benign optimal in office Non-ischemic cardiomyopathy (Multi) Initial diagnosis January 2023 DNICM HF borderline EF 40-45% April 2025 TTE. (January 2023 cath EF 20%: January 2023 TTE EF 40-45%: May 2023 MUGA EF 33%: Aug 2023 MUGA 31%: February 2024 TTE EF 50-55%) FC II Stage C GDMT: Coreg 6.25 BID Aldactone 12.5mg: Intolerant to gynecomastia Entresto 24/26 mg twice daily: Did not tolerate midlevel dosing. Reports compliance since discharge. Jardiance: Reported intolerance Farxiga have been cost prohibitive in the past Narrow QRS Persistent atrial fibrillation (Multi) Reports Applewatch reporting afib starting Jun 29, 2023. Jul 22, 2023 holter afib through out. Oct 2023 hospitalization due to ADHF/afib with RVR and underwent DCC. terminal makeup operator current use of 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 therapy CHADS VASc 3 Was changed over to full dose Eliquis (age 70, weight 97 kg) at recent discharge. Patient assistance forms have been completed. Denies bleeding diatheses . Reviewed reviewed. Plan: Through informed decision making process incorporating patients unique circumstances, the followingtreatment plan will be initiated: 1. Prescription drug management of cardiovascular medication for efficacy, adherence to treatment, side effect assessment and polypharmacy. Current treatment clinically warranted and to continue without modifications. 2. Return for follow-up; in the interim, contact the office if new symptoms arise. Dr. Neal 8 weeks. Worsening bleeding. Contributing Bianca Aldridge MSN, MOBILE SECURITY ARCHITECT-INDUSTRIAL ENGINEERING TECHNICIAN, PMHNP-BC [facility] [place], [place] Please excuse any errors in grammar or translation related to this dictation. Voice recognition software was utilized to prepare this document. documented in this encounter Miscellaneous Notes * Assessment & Plan Note - FREDIS Flowers - 05/13/2025 11:34 AM EDT Associated Problem(s): terminal makeup operator current use of 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 therapy CHADS VASc 3 Was changed over to full dose Eliquis (age 70, weight 97 kg) at recent discharge. Patient assistance forms have been completed. Denies bleeding diatheses * Assessment & Plan Note - FREDIS Flowers - 05/13/2025 11:33 AM EDT Associated Problem(s): Persistent atrial fibrillation (Multi) Reports Applewatch reporting afib starting Jun 29, 2023. Jul 22, 2023 holter afib through out. Oct 2023 hospitalization due to ADHF/afib with RVR and underwent DCC. * Assessment & Plan Note - FREDIS Flowers - 05/13/2025 11:29 AM EDT Associated Problem(s): Non-ischemic cardiomyopathy (Multi) Initial diagnosis January 2023 DNICM HF borderline EF 40-45% April 2025 TTE. (January 2023 cath EF 20%: January 2023 TTE EF 40-45%: May 2023 MUGA EF 33%: Aug 2023 MUGA 31%: February 2024 TTE EF 50-55%) FC II Stage C GDMT: Coreg 6.25 BID Aldactone 12.5mg: Intolerant to gynecomastia Entresto 24/26 mg twice daily: Did not tolerate midlevel dosing. Reports compliance since discharge. Jardiance: Reported intolerance Farxiga have been cost prohibitive in the past Narrow QRS * Assessment & Plan Note - FREDIS Flowers - 05/13/2025 11:26 AM EDT Associated Problem(s): Hypertension, benign optimal in office * Assessment & Plan Note - FREDIS Flowers - 05/13/2025 11:25 AM EDT Associated Problem(s): Cardiac and Vasculature January 2023 presented [place] [facility] [place] Cardiac cath: Normal coronaries, LVEF 20% January 2023 TTE LVEF 40 to 45% with hypokinesis of inferior lateral and basal apical * Assessment & Plan Note - FREDIS Flowers - 05/13/2025 11:25 AM EDT Associated Problem(s): Medically noncompliant Prior to April 2025 hospitalization due to ADHF patient had been backing off my heart meds * Assessment & Plan Note - FREDIS Flowers - 05/10/2025 4:28 PM EDT Associated Problem(s): Obstructive sleep apnea syndrome Not able to tolerate CPAP documented in this encounter Plan of Treatment Upcoming Encounters Date Type Department Care Team (Late st Contact Info) Description 07/29/2025 12:30 PM EDT Office Visit [facility] 703 [facility] [address] [place] [address] Mary Neal MD [address] [facility] [address] [place], [place] [phone] documented as of this encounter Visit Diagnoses Diagnosis Medically noncompliant- Primary Non-ischemic cardiomyopathy (Multi) Other primary cardiomyopathies Persistent atrial fibrillation (Multi) Atrial fibrillation residential current use of 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 therapy Hypertension, benign Essential hypertension, benign Body mass index (BMI) 30.0-30.9, adult Obstructive sleep apnea syndrome Obstructive sleep apnea (adult) (pediatric) documented in this encounter Additional Health Concerns Assessment Noted Time A fall risk assessment has been complete d for the patient 05/10/2025 3:57 PM EDT documented as of this encounter Care Teams Principal Software Engineer Relationship Specialty Start Date End Date Jairo Wilkins DO [address] [place] [address] PCP - General Internal Medicine 01/30/24 Jairo Wild DO [address] [place] [address] Referring Physician Otolaryngology 09/05/23 documented as of this encounter
--- OUTSIDE RECORDS SUMMARY | 2025-05-16 08:53 | XMS_ITS | Encounter Summary ---
Author Organization [facility] Address [address] [place] [address] Phone Care Team Providers Care Suppository Molding Machine Operator Name Role Phone SushmaJairo gonzalez DO Unavailable [phone] Jairo Wilkins DO Primary Care Provider [phone] Encounter Details Date Type Department Care Team (Late Contact Info) Description 12/24/2024 Scanned Document [facility] [address] [place] [phone] Scanning, Generic Provider Social History Tobacco Use Types Packs/Day Years Used Date Smoking Tobacco: Former Cigarettes Q uit: 2000 Smokeless Tobacco: Never Alcohol Use Standard Drinks/Week Comments Yes 7 (1 standard drink = 0.6 oz pur e alcohol) Sex and Gender Information Value Date Recorded Sex Assigned at Not on file Legal Sex Male 9:21 AM EDT Gender Identity Not on file Sexual Orientation Not on file COVID-19 Exposure Response Date Recorded In the last 10 days, have yo u been in contact with someone who was confirmed or suspected to have Coronavirus/COVID-19? No / Unsure 11/30/2024 10:10 AM EST documented as of this encounter Plan of Treatment Upcoming Encounters Date Type Department Care Team (Late st Contact Info) Description 07/29/2025 12:30 PM EDT Office Visit [facility] 703 [facility] [address] [place] [address] Mary Neal MD 917 [facility] [address] [place] [address] Scheduled Orders Name Type Priority Associated Diagnoses Orde r Schedule Ultrasound- OnBase Scan Imaging O rdered: 12/24/2024 documented as of this encounter Visit Diagnoses Not on filedocumented in this encounter Additional Health Concerns Assessment Noted Time A fall risk assessment has been complete d for the patient 03/21/2024 3:20 PM EDT documented as of this encounter Care Teams Suppository Molding Machine Operator Relationship Specialty Start Date End Date Jairo Wilkins DO [address] [place] [place] [address] PCP - General Internal Medicine 01/30/24 Jairo Wild DO [address] [place] [address] Referring Physician Otolaryngology 09/05/23 documented as of this encounter
--- OUTSIDE RECORDS SUMMARY | 2025-05-16 08:53 | XMS_ITS | Encounter Summary ---
Author Organization [facility] Address [address] [place] [address] Care Team Providers Care Hog Slaughterer Name Role Phone Jairo Wilkins DO Primary Care Provider [phone] Encounter Details Date Type Department Care Team ([facility] st Contact Info) Description 08/09/2023 Orders Only CORINNE Castaneda Otolaryngology [address] [place] [address] Jairo Wilkins DO [address] [place] [address] Social History Tobacco Use Types Packs/Day Years Used Date Smoking Tobacco: Former Cigarettes Q uit: 10/03/2003 Comments:Last smoked : > 10 years Alcohol Use Standard Drinks/Week Comments Yes 1 (1 standard drink = 0.6 oz pure alcohol) caffeine intake : 1-2 cups per day Sex and Gender Information Value Date Recorded Sex Assigned at Not on file Legal Sex Male 7:18 PM EDT Gender Identity Not on file Sexual Orientation Not on file documented as of this encounter Plan of Treatment Not on file documented as of this encounter Procedures Procedure Name Priority Date/Time Associated Diagnosis Comments POLYSOMNOGRAPHY (PSG) SLEEP STUDY Routine 08/09/2023 7:19 AM EST documented in this encounter Results * POLYSOMNOGRAPHY (PSG) SLEEP STUDY (08/09/2023 7:19 AM EST) Anatomical Region Laterality Modality Radiographic Nahtalia ging us Jairo MARING XR PROCEDURES Final Resul t documented in this encounter Visit Diagnoses Not on filedocumented in this encounter Care Teams Hog Slaughterer Relationship Specialty Start Date End Date Jairo Wilkins DO PCP - General Internal Medicine 04/06/23 documented as of this encounter
--- OUTSIDE RECORDS SUMMARY | 2025-05-16 08:53 | XMS_ITS | Encounter Summary ---
Author Organization [facility] Address [address] [place] [address] Phone Care Team Providers Care Addiction Therapist Name Role Phone RosendoJairo joseph DO Unavailable Jairo Wilkins DO Primary Care Provider [phone] Encounter Details Date Type Department Care Team (Late st Contact Info) Description 04/16/2025 Scanned Document [facility] [address] [place] [phone] Scanning, Generic Provider Social History Tobacco Use [...] Description 07/29/2025 12:30 PM EDT Office Visit [facility] 703 [facility] [address] [place] [address] Mary Neal MD [address] [facility] [address] [place] [address] documented as of this encounter Procedures Procedure Name Priority Date/Time Associated Diagnosis Comments ECHOCARDIOGRAM 04/16/2025 documented in this encounter Results * Echocardiogram (04/16/2025) Narrative 04/16/2025 Ordered by an unspecified provider. us Generic Provider Scanning CV ECHO PROCEDURES Fin al Result documented in this encounter Visit Diagnoses Not on filedocumented in this encounter Additional Health Concerns Assessment Noted Time A fall risk assessment has been complete d for the patient 01/21/2025 10:45 AM EDT documented as of this encounter Care Teams Addiction Therapist Relationship Specialty Start Date End Date Jairo Wilkins DO [address] [place] [address] PCP - General Internal Medicine 01/30/24 Jairo Wild DO [address] [place] [address] Referring Physician Otolaryngology 09/05/23 documented as of this encounter
--- OUTSIDE RECORDS SUMMARY | 2025-05-16 08:53 | XMS_ITS | Encounter Summary ---
Author Organization [facility] Address [address] [address] Phone Care Team Providers Care Supervisor Coin Machine Name Role Phone RosendoJairo joseph DO Unavailable [phone] Jairo Wilkins DO Primary Care Provider [phone] Encounter Details Date Type Department Care Team (Late st Contact Info) Description 04/15/2025 Scanned Document [facility] [address] [place] [phone] Scanning, Generic Provider Social History Tobacco Use [...] Description 07/29/2025 12:30 PM EDT Office Visit [facility] 703 [facility] [address] [place] [address] Mary Neal MD [address] [facility] [address] [place] [address] documented as of this encounter Procedures Procedure Name Priority Date/Time Associated Diagnosis Comments OUTSIDE IMAGING SCAN 04/15/2025 documented in this encounter Results * OUTSIDE IMAGING SCAN (04/15/2025) Anatomical Region Laterality Modality Other Narrative 04/15/2025 Ordered by an unspecified provider. us Generic Provider Scanning OUTSIDE SCAN Final Result documented in this encounter Visit Diagnoses Not on filedocumented in this encounter Additional Health Concerns Assessment Noted Time A fall risk assessment has been complete d for the patient 01/21/2025 10:45 AM EDT documented as of this encounter Care Teams Supervisor Coin Machine Relationship Specialty Start Date End Date Jairo Wilkins DO [address] [place] [address] PCP - General Internal Medicine 01/30/24 Jairo Wild DO [address] [place] [address] Referring Physician Otolaryngology 09/05/23 documented as of this encounter
--- OUTSIDE RECORDS SUMMARY | 2025-05-16 08:53 | XMS_ITS | Encounter Summary ---
Author Organization [facility] Address [address] [place] [address] Phone Care Team Providers Care Utility Agent Name Role Phone Jairo Wilkins DO Primary Care Provider [phone] Jairo Wild DO Unavailable [phone] Jairo Wilkins DO Primary Care Provider [phone] Encounter Details Date Type Department Care Team (Late st Contact Info) Description 10/22/2023 Scanned Document [facility] [address] [place] [address] Scanning, Generic Provider Social History Tobacco Use [...] suspected to have Coronavirus/COVID-19? No / Unsure 09/29/2023 1:43 PM EST documented as of this encounter Plan of Treatment Upcoming Encounters Date Type Department Care Team (Late st Contact Info) Description 07/29/2025 12:30 PM EDT Office Visit [address] [address] Mary Neal MD [address] [address] documented as of this encounter Visit Diagnoses Not on filedocumented in this encounter Additional Health Concerns Assessment Noted Time A fall risk assessment has been complete d for the patient 09/29/2023 2:04 PM EST documented as of this encounter Care Teams Utility Agent Relationship Specialty Start Date End Date Jairo Wilkins DO PCP - General Internal Medicine 08/23/23 01/29/24 Jairo Wilkins DO [address] [place] [address] PCP - General Internal Medicine 01/30/24 Jairo Wild DO [address] [place] [address] Referring Physician Otolaryngology 09/05/23 documented as of this encounter
--- OUTSIDE RECORDS SUMMARY | 2025-05-16 08:53 | XMS_ITS | Encounter Summary ---
Author Organization [facility] Address [address] [place] [address] Phone Care Team Providers Care Expressive Art Therapist Name Role Phone SushmaJairo gonzalez DO Unavailable [phone] Jairo Wilkins DO Primary Care Provider [phone] Encounter Details Date Type Department Care Team (Late Contact Info) Description 12/25/2024 Scanned Document [facility] [address] [place] [phone] Scanning, Generic Provider Social History Tobacco Use [...] Description 07/29/2025 12:30 PM EDT Office Visit [facility] 703 [facility] 250 [place] [address] Mary Neal MD 917 [facility] [address] [place] [address] documented as of this encounter Visit Diagnoses Not on filedocumented in this encounter Additional Health Concerns Assessment Noted Time A fall risk assessment has been complete d for the patient 03/21/2024 3:20 PM EDT documented as of this encounter Care Teams Expressive Art Therapist Relationship Specialty Start Date End Date Jairo Wilkins DO [address] [place] [address] PCP - General Internal Medicine 01/30/24 Jairo Wild DO [address] [place] [address] Referring Physician Otolaryngology 09/05/23 documented as of this encounter
--- OUTSIDE RECORDS SUMMARY | 2025-05-16 08:53 | XMS_ITS | Clinical Summary ---
Author Organization [facility] Address [address] [place] [address] Care Team Providers Care Oracle Hrms Developer Name Role Phone Unavailable Primary Care Provider Unavailabl e Social History Tobacco Use Types Packs/Day Years Used Date Smoking Tobacco: Never Assessed Sex and Gender Information Value Date Recorded Sex Assigned at Not on file Legal Sex Male 10:05 PM EDT Gender Identity Not on file Sexual Orientation Not on file Plan of Treatment Not on file
--- OUTSIDE RECORDS SUMMARY | 2025-05-16 08:53 | XMS_ITS | Encounter Summary ---
Author Organization [facility] Address [address] [place] [address] Phone Care Team Providers Care Assistant Professor Of Drama Name Role Phone RosendoJairo joseph DO Unavailable [phone] Jairo Wilkins DO Primary Care Provider [phone] Encounter Details Date Type Department Care Team (Late st Contact Info) Description 06/22/2024 Scanned Document [facility] [address] [place] [phone] Scanning, Generic Provider Social History Tobacco Use [...] Description 07/29/2025 12:30 PM EDT Office Visit [facility] [address] [facility] [address] [place] [address] Mary Neal MD [address] [facility] [address] [place] [address] documented as of this encounter Visit Diagnoses Not on filedocumented in this encounter Additional Health Concerns Assessment Noted Time A fall risk assessment has been complete d for the patient 03/21/2024 3:20 PM EDT documented as of this encounter Care Teams Assistant Professor Of Drama Relationship Specialty Start Date End Date Jairo Wilkins DO [address] [place] [address] PCP - General Internal Medicine 01/30/24 Jairo Wild DO [address] [place] [address] Referring Physician Otolaryngology 09/05/23 documented as of this encounter
--- OUTSIDE RECORDS SUMMARY | 2025-05-16 08:53 | XMS_ITS | Encounter Summary ---
Author Organization [facility] Address [address] [place] [address] Phone Care Team Providers Care Manager Validation Name Role Phone Jairo Wilkins DO Primary Care Provider [phone] Jairo Wilkins DO Primary Care Provider [phone] Jairo Wild DO Unavailable [phone] Jairo Wilkins DO Primary Care Provider [phone] Encounter Details Date Type Department Care Team (Late st Contact Info) Description 06/09/2023 Scanned Document [facility] [address] [place] [address] Conversion, Onbase Social History Tobacco Use Types Packs/Day Years [...] Description 07/29/2025 12:30 PM EDT Office Visit [facility] 703 [facility] [address] [place] [address] Mary Neal MD 917 [facility] [address] [place] [address] documented as of this encounter Visit Diagnoses Not on filedocumented in this encounter Care Teams Manager Validation Relationship Specialty Start Date End Date Jairo Wilkins DO PCP - General 04/15/23 08/22/23 Jairo Wilkins DO PCP - General Internal Medicine 08/23/23 01/29/24 Jairo Wilkins DO [address] [place] [address] PCP - General Internal Medicine 01/30/24 Jairo Wild DO [address] [place] [address] Referring Physician Otolaryngology 09/05/23 documented as of this encounter
--- OUTSIDE RECORDS SUMMARY | 2025-05-16 08:53 | XMS_ITS | Encounter Summary ---
Author Organization [facility] Address [address] [place] [address] Phone Care Team Providers Care Instructor Private Name Role Phone Jairo Wilkins DO Primary Care Provider [phone] Jairo Wilkins DO Primary Care Provider [phone] Jairo Wild DO Unavailable [phone] Jairo Wilkins DO Primary Care Provider [phone] Encounter Details Date Type Department Care Team (Late st Contact Info) Description 04/20/2023 Orders Only [facility] [address] [place] [address] Conversion, Onbase Social History Tobacco Use Types [...] EDT Office Visit [facility] [address] [facility] [address] [place] [address] Mary Neal MD 917 [facility] [address] [place] [address] Scheduled Orders Name Type Priority Associated Diagnoses Orde r Schedule OUTSIDE LAB SCAN Lab Ordered: 04/20/2023 documented as of this encounter Visit Diagnoses Not on filedocumented in this encounter Care Teams Instructor Private Relationship Specialty Start Date End Date Jairo Wilkins DO PCP - General 04/15/23 08/22/23 Jairo Wilkins DO PCP - General Internal Medicine 08/23/23 01/29/24 Jairo Wilkins DO [address] [place] [address] PCP - General Internal Medicine 01/30/24 Jairo Wild DO [address] [place] [address] Referring Physician Otolaryngology 09/05/23 documented as of this encounter
--- OUTSIDE RECORDS SUMMARY | 2025-05-16 08:53 | XMS_ITS | Encounter Summary ---
Author Organization [facility] Address [address] [place] [address] Phone Care Team Providers Care Concrete Sculptor Name Role Phone Jairo Wilkins DO Primary Care Provider [phone] Jairo Wilkins DO Primary Care Provider [phone] Jairo Wild DO Unavailable [phone] Jairo Wilkins DO Primary Care Provider [phone] Encounter Details Date Type Department Care Team (Late st Contact Info) Description 05/09/2023 Scanned Document [facility] [address] [place] [address] Conversion, Onbase Social History Tobacco Use Types [...] Description 07/29/2025 12:30 PM EDT Office Visit [facility] [address] [facility] [address] [place] [address] Mary Neal MD 917 [facility] [address] [place] [address] documented as of this encounter Procedures Procedure Name Priority Date/Time Associated Diagnosis Comments OUTSIDE IMAGING SCAN 05/09/2023 documented in this encounter Results * OUTSIDE IMAGING SCAN (05/09/2023) Anatomical Region Laterality Modality Other Narrative 05/09/2023 Ordered by an unspecified provider. us Onbase Conversion OUTSIDE SCAN Final Result documented in this encounter Visit Diagnoses Not on filedocumented in this encounter Care Teams Concrete Sculptor Relationship Specialty Start Date End Date Jairo Wilkins DO PCP - General 04/15/23 08/22/23 Jairo Wilkins DO PCP - General Internal Medicine 08/23/23 01/29/24 Jairo Wilkins DO [address] [place] [address] PCP - General Internal Medicine 01/30/24 Jairo Wild DO [address] [place] [address] Referring Physician Otolaryngology 09/05/23 documented as of this encounter
--- OUTSIDE RECORDS SUMMARY | 2025-05-16 08:53 | XMS_ITS | Clinical Summary ---
Author Organization [facility] Address [address] [place] [address] Phone Care Team Providers Care Animal Nutrition Teacher Name Role Phone RosendoJairo joseph Papo DO Unavailable [phone] Jairo Wilkins DO Primary Care Provider [phone] Allergies Active Allergy Reactions Criticality Noted Date Comments Nsaids (Non-Steroidal Anti-Inflammatory Drug) Unknown 01/03/2008 Spironolactone Other Low 11/30/2024 Breast pain/enlargement Juarpoy-Wvw-Lgt Reductase Inhibitors Unknown 06/22/2023 Medications ascorbic acid, vitamin C, 500 mg capsule Take 1 capsule by mouth once daily. Active traMADol (Ultram) 50 mg tablet Take 1 tablet (50 mg) by mouth every 6 hours if needed. Active ALPRAZolam (Xanax) 0.5 mg tablet Take by mouth 2 times a day. Take 1 - 1.5 tablets Active aspirin 81 mg EC tablet Take 1 tablet (81 mg) by mouth once daily. Active selenium 50 mcg tablet Take 1 tablet (50 mcg) by mouth once daily. Active magnesium oxide 300 mg magnesium tablet Take 1 tablet by mouth once daily at bedtime. Active pantoprazole (ProtoNix) 40 mg EC tablet Take 1 tablet (40 mg) by mouth if needed. 4 Active carvedilol (Coreg) 6.25 mg tabletIndications: Non-ischemic cardiomyopathy (Multi) Take 1 tablet (6.25 mg) by mouth 2 times daily (morning and late afternoon). 180 tablet 2 5 026 Active sacubitriL-valsart an (Entresto) 24-26 mg tablet Take 1 tablet by mouth 2 times a day. Active apixaban (Eliquis) 5 mg tablet Take 1 tablet (5 mg) by mouth 2 times a day. Active melatonin 5 mg capsule Take 1 capsule (5 mg) by mouth as needed at bedtime. Active furosemide (Lasix) 20 mg tablet Take 2 tablets (40 mg) by mouth every 12 hours. 5 Active BLUE-GREEN ALGAE, SPIRULINA, ORAL Take 1,000 mg by mouth once daily. Active ivermectin (Stromectol) 3 mg tablet Take 2 tablets (6 mg) by mouth 2 times a day. Active niacinamide 500 mg tablet Take 1 tablet (500 mg) by mouth once daily. Active b complex 0.4 mg tablet Take 1 tablet by mouth once daily. Active lactobacillus combination no.4 (Probiotic) 3 billion cell capsule Take 1 capsule by mouth once daily. Active cholecalciferol (Vitamin D3) 125 mcg (5,000 units) tablet Take 1 tablet (125 mcg) by mouth once daily. Active COQ10, UBIQUINOL, ORAL Take 1 capsule by mouth once daily. Active vit C/zinc/Panax ginseng/hrb62 (IMMUNE SUPPORT COMPLEX ORAL) Take 1 capsule by mouth once daily. Active zinc acetate 25 mg (zinc) capsule Take 1 capsule by mouth once daily. 025 Discontin ued(Thera py completed ) cetirizine (ZYRTEC) 10 mg capsule Take 1 capsule (10 mg) by mouth once daily at bedtime. 025 Discontin ued(Thera py completed ) warfarin (Coumadin) 1 mg tablet Take as directed by [facility] 4 025 Discontin ued(Thera py completed ) valsartan (Diovan) 80 mg tabletIndications: Hypertension, benign Take 1 tablet (80 mg) by mouth once daily. 90 tablet 2 5 025 Discontin ued(Thera py completed ) Active Problems Problem Noted Date Diagnosed Date Medically noncompliant 11/30/2024 Assessment & Plan (05/13/2025 11:25 AM EDT): Prior to April 2025 hospitalization due to ADHF patient had been backing off my heart meds White coat syndrome with diagnosis of hypertensi on 11/30/2024 Atrial fibrillation, currently in sinus rhythm 0 11/30/2024 Abnormal EKG 11/30/2024 Pre-operative examination 01/30/2024 Body mass index (BMI) 30.0-30.9, adult Sinus bradycardia 01/30/2024 Hospital discharge follow-up 11/10/2023 Personal history of COVID-19 09/29/2023 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 congestive 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, NYHA class 2 09/29/2023 Medication course changed 09/29/2023 [facility] current use of 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 therapy 1 11/08/2022 Assessment & Plan (05/13/2025 11:34 AM EDT): CHADS VASc 3 Was changed over to full dose Eliquis (age 70, weight 97 kg) at recent discharge. Patient assistance forms have been completed. Denies bleeding diatheses Assessment & Plan (09/07/2023 9:50 AM EST): CHADS VASc 3 After lengthy discussion regarding the importance of cardioembolic protection he agrees to begin treatment with Xarelto 20 mg daily. CRCL: 116 Provided with samples today and patient assistance forms Persistent atrial fibrillation (Multi) Assessment & Plan (05/13/2025 11:33 AM EDT): Reports [employer] reporting afib starting Jun 29, 2023. Jul 22, 2023 holter afib through out. Oct 2023 hospitalization due to ADHF/afib with RVR and underwent DCC. Assessment & Plan (09/07/2023 9:47 AM EST): Reports [employer]watch reporting afib starting Jun 29, 2023. Jul 22, 2023 holter afib through out. He was instructed to start Eliquis but 'did not like what was seeing on TV' so did not start. Cost concerns. ECG in office today afib at 97 bpm Former smoker 06/22/2023 Hypertension, benign 06/22/2023 Assessment & Plan (05/13/2025 11:26 AM EDT): optimal in office Assessment & Plan (09/07/2023 9:26 AM EST): optimal in office Non-ischemic cardiomyopathy (Multi) 06/22/2023 Assessment & Plan (05/13/2025 11:29 AM EDT): Initial diagnosis January 2023 DNICM HF borderline [...] cost prohibitive in the past Narrow QRS Assessment & Plan (09/07/2023 9:45 AM EST): Initial diagnosis January 2023 NICM HFrEF 31% [...] April 2023 but reports intolerance Narrow QRS Obstructive sleep apnea syndrome 06/22/2023 Assessment & Plan (05/10/2025 4:28 PM EDT): Not able to tolerate CPAP Assessment & Plan (09/07/2023 9:51 AM EST): Remains compliant with BiPAP SOB (shortness of breath) 06/22/2023 Resolved Problems Problem Noted Date Diagnosed Date Resolved Date Obesity (BMI 30.0-34.9) 09/29/2023 02/0 05/2024 CHF (NYHA class II, ACC/AHA stage C) (Multi) 09/05/2023 Class 1 obesity with body ma ss index (BMI) of 30.0 to 30.9 in adult 06/22/2023 09/29/2023 Assessment & Plan (09/07/2023 9:47 AM EST): Reviewed the merits of healthy lifestyle choices on overall cardiovascular health. 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; Hypertension, benign; Body mass index (BMI) 30.0-30.9, adult; Obstructive sleep apnea syndrome 05/10/2025 Travel 04/29/[address] [address] Katty Best, INFRASTRUCTURE ADMINISTRATOR Results 04/24/[address] [address] Maye Power RN Hypotension 04/24/[address] [address] Maye Power RN Patient Assistance 04/17/2025 Scanned Document [facility] [address] [place] [address] Scanning, Generic Provider 04/16/2025 Scanned Document [facility] [address] [place] [address] Scanning, Generic Provider 04/16/[address] [address] Mohini Albert, RN inpatient 04/15/2025 Scanned Document [facility] [address] [place] [address] Scanning, Generic Provider from Last 3 Months Immunizations Immunization Administration Dates Next Due Flu vaccine, trivalent, pres ervative free, age 6 months and greater (Fluarix/Fluzone/Flulaval) 09/01/2017,06/27/2015 Hep A / Hep B 01/21/2009,05/21/2008,04/03/2008 Influenza, live, intranasal, quadrivalent 2017 Influenza, seasonal, injectable 08/08/2013 Influenza, trivalent, adjuvanted 07/06/2019 Pneumococcal conjugate vacci ne, 13-valent (PREVNAR 13) 06/27/2015 Pneumococcal polysaccharide vaccine, 23-valent, age 2 years and older (PNEUMOVAX 23) 03/03/2017 Tdap vaccine, age 7 year and older (BOOSTRIX, ADACEL) 06/27/2015 Zoster, live 08/10/2013 Family History Medical History Relation Name Comments Heart disease Father heart valve replaced Father Melanoma Mother Relation Name Status Comments Father Mother Social History Tobacco Use Types Packs/Day Years [...] on file Sexual Orientation Not on file Last Filed Vital Signs Vital Sign Reading [...] Mass Index 30.41 05/10/2025 4:17 PM EDT Plan of Treatment Upcoming Encounters Date Type Department Care Team (Late st Contact Info) Description 07/29/2025 12:30 PM EDT Office Visit [facility] [address] [facility] [address] [place] [address] Mary Neal MD [address] [facility] [address] [place] [address] Health Maintenance Due Date Last Done Comments CT Colonography 1954 Colonoscopy 1954 Colorectal Cancer Screening 1954 Creatinine Level 1954 FIT-DNA (Cologuard) 1954 FIT 1954 Lipid Panel 1954 Medicare Annual Wellness Visit (AWV) 1954 Potassium Level 1954 Sigmoidoscopy 1954 Diabetes Screening 1972 Zoster Vaccines (2 of 3) 10/05/2013 08/10/2013 RSV High Risk: (Elderly (60+) or Population) (1 - Risk 60-74 years 1-dose series) 2014 MMR Vaccines (1 of 1 - Standard series) 09/06/2018 Abdominal Aortic Aneurysm (AAA) Screening 2019 Pneumococcal Vaccine (3 of 3 - PCV20 or PCV21) 03/03/2022 03/03/2017, 06/27/2015 COVID-19 Vaccine (1 - 2023- season) 2024 Influenza Vaccine (#1) 2025 9, 08/09/2018, 09/01/2017, Additional history exists DTaP/Tdap/Td Vaccines (2 - Td or Tdap) 06/27/2025 06/27/2015 Echocardiogram 04/16/2026 04/16/2025, 01/31, 10/21/2023, Additional history exists Hepatitis A Vaccines Completed 01/21/2009, 05/21/2008, 04/03/2008 Hepatitis B Vaccines Completed 01/21/2009, 05/21/2008, 04/03/2008 HIB Vaccines Aged Out No longer eligi ble based on patient's age to complete this topic HPV Vaccines Aged Out No longer eligi ble based on patient's age to complete this topic IPV Vaccines Aged Out No longer eligi ble based on patient's age to complete this topic Meningococcal Vaccine Aged Out No kyrie lelo eligible based on patient's age to complete this topic Rotavirus Vaccines Aged Out No longer eligible based on patient's age to complete this topic Procedures Procedure Name Priority Date/Time Associated Diagnosis Comments ECHOCARDIOGRAM 04/16/2025 OUTSIDE IMAGING SCAN 04/15/2025 from Last 3 Months Results * Echocardiogram (04/16/2025) Narrative 04/16/2025 Ordered by an unspecified provider. us Generic Provider Scanning CV ECHO PROCEDURES Fin al Result * OUTSIDE IMAGING SCAN (04/15/2025) Anatomical Region Laterality Modality Other Narrative 04/15/2025 Ordered by an unspecified provider. us Generic Provider Scanning OUTSIDE SCAN Final Result from Last 3 Months Insurance MEDICARE PART A AND B [facility] [place] [address] MEDICARE PART A AND B [employer] [facility] Care Teams Animal Nutrition Teacher Relationship Specialty Start Date End Date Jairo Wilkins DO [address] [place] [address] PCP - General Internal Medicine 01/30/24 Jairo Wild DO [address] [place] [address] Referring Physician Otolaryngology 09/05/23
--- OUTSIDE RECORDS SUMMARY | 2025-05-16 08:53 | XMS_ITS | Clinical Summary ---
Author Organization [facility] Address [id number] [address] [place] [address] Care Team Providers Care Modeling Manager Name Role Phone Unavailable Primary Care Provider Unavailabl e Allergies Active Allergy Reactions Criticality Noted Date Comments Nsaids (Non-Steroidal Anti-Inflammatory Drug) Other (See Comments) 01/03/2008 Avstfvp-Khj-Wcc Reductase Inhibitors Other (See Comments) 04/06/2023 Social History Tobacco Use Types Packs/Day Years Used Date Smoking Tobacco: Never Assessed Childcare Answer Date Recorded Childcare Unknown 03/14/2019 Employment Answer Date Recorded Employment Unknown 03/14/2019 Purpose - Life Answer Date Recorded Purpose and direction in life Unknown Sex and Gender Information Value Date Recorded Sex Assigned at Not on file Legal Sex Male 11:25 AM EDT Gender Identity Not on file Sexual Orientation Not on file Plan of Treatment Health Maintenance Due Date Last Done Comments Depression Screening 1966 Tobacco Screening 1966 Adult BMI Screening 1972 Zoster (Shingles) Vaccine (2 of 3) 10/05/2013 08/10/2013 Fall Risk Screening 2019 Influenza Vaccine 06/03/2025 07/06/2019, , 09/01/2017, Additional history exists DTaP,Tdap and Td Vaccines (2 - Td or Tdap) 06/27/2025 06/27/2015 Medical Devices Not on file Insurance MEDICARE [facility] [place] [address]
--- OUTSIDE RECORDS SUMMARY | 2025-05-16 08:53 | XMS_ITS | Encounter Summary ---
Author Organization [facility] Address [address] [place] [address] Care Team Providers Care And Drying Supervisor Cooking Casing Name Role Phone Jairo Wilkins DO Primary Care Provider [phone] Encounter Details Date Type Department Care Team ([facility] st Contact Info) Description 04/06/2023 Abstract [facility] [address] [place] [address] Jairo Wild DO [address] [place] [address] Social History Tobacco Use Types Packs/Day Years Used Date Smoking Tobacco: Former Cigarettes Q uit: 10/03/2003 Tobacco Cessation:Counseling Given: Not Answered Comments:Last smoked : > 10 years Alcohol [...] on file documented as of this encounter Visit Diagnoses Not on filedocumented in this encounter Care Teams And Drying Supervisor Cooking Casing Relationship Specialty Start Date End Date Jairo Wilkins DO PCP - General Internal Medicine 04/06/23 documented as of this encounter
--- OUTSIDE RECORDS SUMMARY | 2025-05-16 08:53 | XMS_ITS | Encounter Summary ---
Author Organization [facility] Address [address] [place] [address] Phone Care Team Providers Care Tray Room Worker Name Role Phone RosendoJairo joseph Papo DO Unavailable [phone] Jairo Wilkins DO Primary Care Provider [phone] Reason for Visit * Reason Onset Date Comments Patient Assistance 04/24/2025 Encounter Details Date Type Department Care Team (Late st Contact Info) Description 04/24/2025 Telephone [facility] [address] [address] Maye Power RN Patient Assistance Social History Tobacco Use Types Packs/Day Years [...] on file documented as of this encounter Miscellaneous Notes * Telephone Encounter - Yeni Shukla LPN - 05/14/2025 1:13 PM EDT Patient needed to submit medication costs from pharmacy. Patient brought in EOB from pharmacy. Faxed today. * Telephone Encounter - Adele Sampson LPN - 05/01/2025 1:37 PM EDT Patient came in t o sign forms. Faxed. * Telephone Encounter - Adele Sampson LPN - 05/01/2025 10:11 AM EDT Phoned patient that fax received from Lacey Cates that page 3 missing that requires patient signature and initials. States he will be in today to update form and will need faxed. * Telephone Encounter - Katty Montero LPN - 04/29/2025 2:13 PM EDT Papers faxed for [employer] and [employer]. Placed into the scan to chart bin. Samples being provided of gerberngoc because he is running low. * Telephone Encounter - Chioma Sewell LPN - 04/26/2025 3:26 PM EDT Patient phoned requested that we phone him when we fax P.A. paperwork so he can see if he needs samples to get him through. * Addendum Note - Katty Montero LPN - 04/26/2025 11:41 AM EDTAddended by: KATTY MONTERO on: 04/26/2025 11:41 AM Modules accepted: Orders * Telephone Encounter - Katty Montero LPN - 04/26/2025 11:40 AM EDT Patient assistance forms for entresto and eliquis recvd along with income and insurance info. Prescriber portions completed and placed on Dr. Mary Neal MD desk for signature. Once sign will need faxed and scanned to chart. * Telephone Encounter - Maye Power RN - 04/24/2025 1:23 PM EDT Patient phones and states that he was recently re prescribed eliquis while in the hospital as well as the dose of his entresto was changed. States that he has patient assistance forms for both medications that he has completed and will drop off to the office for provider portion to be done and thenfaxed. documented in this encounter Plan of Treatment Upcoming Encounters Date Type Department Care Team (Late st Contact Info) Description 07/29/2025 12:30 PM EDT Office Visit [facility] [address] [facility] [address] [place] [address] Mary Neal MD 917 [facility] [address] [place] [address] documented as of this encounter Visit Diagnoses Not on filedocumented in this encounter Additional Health Concerns Assessment Noted Time A fall risk assessment has been complete d for the patient 01/21/2025 10:45 AM EDT documented as of this encounter Care Teams Tray Room Worker Relationship Specialty Start Date End Date Jairo Wilkins DO [address] [place] [address] PCP - General Internal Medicine 01/30/24 Jairo Wild DO [address] [place] [address] Referring Physician Otolaryngology 09/05/23 documented as of this encounter
--- OUTSIDE RECORDS SUMMARY | 2025-05-16 08:53 | XMS_ITS | Encounter Summary ---
Author Organization [email or web address] Address [id number] [address] [place] [address] Care Team Providers Care Auto Damage Insurance Appraiser Name Role Phone Unavailable Primary Care Provider Unavailabl e Encounter Details Date Type Department Care Team (Late st Contact Info) Description 10/17/2023 Orders Only [facility] [address] [place] [phone] External, Scanning Provider Social History Tobacco Use Types Packs/Day [...] Procedure Name Priority Date/Time Associated Diagnosis Comments ECG 12-LEAD Routine 09/01/2023 10:17 AM EST documented in this encounter Results * ECG 12 lead (09/01/2023 10:17 AM EST) us Scanning Provider External ECG ORDERABLES Final Result MANUALLY TRANSCRIBED RESULTS documented in this encounter Visit Diagnoses Not on filedocumented in this encounter
--- OUTSIDE RECORDS SUMMARY | 2025-05-16 08:53 | XMS_ITS | Encounter Summary ---
Author Organization [facility] Address [address] [place] [address] Phone Care Team Providers Care Parachute Packer Name Role Phone RosendoJairo joseph DO Unavailable [phone] Jairo Wilkins DO Primary Care Provider Encounter Details Date Type Department Care Team (Late st Contact Info) Description 04/17/2025 Scanned Document [facility] [address] [place] [id number] Scanning, Generic Provider Social History Tobacco Use [...] Description 07/29/2025 12:30 PM EDT Office Visit [facility] 703 [facility] [address] [place] [address] Mary Neal MD [address] [facility] [address] [place] [address] documented as of this encounter Visit Diagnoses Not on filedocumented in this encounter Additional Health Concerns Assessment Noted Time A fall risk assessment has been complete d for the patient 01/21/2025 10:45 AM EDT documented as of this encounter Care Teams Parachute Packer Relationship Specialty Start Date End Date Jairo Wilkins DO [address] [place] [address] PCP - General Internal Medicine 01/30/24 Jairo Wild DO [address] [place] [address] Referring Physician Otolaryngology 09/05/23 documented as of this encounter
--- OUTSIDE RECORDS SUMMARY | 2025-05-16 08:53 | XMS_ITS | Encounter Summary ---
Author Organization [facility] Address [address] [place] [address] Phone Care Team Providers Care Director Plans Name Role Phone Jairo Wild DO Unavailable [phone] Jairo Wilkins DO Primary Care Provider [phone] Encounter Details Date Type Department Care Team (Latest Contact Info) Description 05/10/2025 Travel Social History Tobacco Use Types Packs/Day Years [...] Description 07/29/2025 12:30 PM EDT Office Visit [facility] 703 [facility] 250 [place] [address] Mary Neal MD [address] [facility] 130 [place], [place] [id number] documented as of this encounter Visit Diagnoses Not on filedocumented in this encounter Additional Health Concerns Assessment Noted Time A fall risk assessment has been complete d for the patient 05/10/2025 3:57 PM EDT documented as of this encounter Care Teams Director Plans Relationship Specialty Start Date End Date Jairo Wilkins DO [address] [place] [address] PCP - General Internal Medicine 01/30/24 Jairo Wild DO [address] [place] [address] Referring Physician Otolaryngology 09/05/23 documented as of this encounter
--- OUTSIDE RECORDS SUMMARY | 2025-05-16 08:53 | XMS_ITS | Encounter Summary ---
Author Organization [facility] Address [address] [place] [address] Phone Care Team Providers Care Clinical Tech Name Role Phone RosendoJairo joseph DO Unavailable [phone] Jairo Wilkins DO Primary Care Provider [phone] Encounter Details Date Type Department Care Team (Late st Contact Info) Description 06/05/2024 Scanned Document [facility] [address] [place] [id number] Scanning, Generic Provider Social History Tobacco Use [...] Description 07/29/2025 12:30 PM EDT Office Visit [facility] 703 [facility] 250 [place] [address] Mary Neal MD 917 [facility] 130 [place] [address] documented as of this encounter Procedures Procedure Name Priority Date/Time Associated Diagnosis Comments OUTSIDE LAB SCAN 06/05/2024 documented in this encounter Results * OUTSIDE LAB SCAN (06/05/2024) Narrative 06/05/2024 Ordered by an unspecified provider. us Generic Provider Scanning OUTSIDE SCAN Final Result documented in this encounter Visit Diagnoses Not on filedocumented in this encounter Additional Health Concerns Assessment Noted Time A fall risk assessment has been complete d for the patient 03/21/2024 3:20 PM EDT documented as of this encounter Care Teams Clinical Tech Relationship Specialty Start Date End Date Jairo Wilkins DO [address] [place] [address] PCP - General Internal Medicine 01/30/24 Jairo Wild DO [address] [place] [address] Referring Physician Otolaryngology 09/05/23 documented as of this encounter
--- OUTSIDE RECORDS SUMMARY | 2025-05-16 08:53 | XMS_ITS | Encounter Summary ---
Author Organization [facility] Address [address] [place] [address] Phone Care Team Providers Care Accounting Associate Name Role Phone RosendoJairo joseph Papo DO Unavailable [phone] Jairo Wilkins DO Primary Care Provider [phone] Reason for Visit * Reason Onset Date Comments Results 04/29/2025 Encounter Details Date Type Department Care Team (Late st Contact Info) Description 04/29/2025 Telephone [facility] 703 [facility] 250 [place] [address] Katty Best LPN Results Social History Tobacco Use Types Packs/Day Years [...] encounter Miscellaneous Notes * Telephone Encounter - Chioma Sewell LPN - 05/07/2025 12:36 PM EDT Attempted to phone patient detailed message with instructions left. * Telephone Encounter - Chioma Sewell LPN - 04/29/2025 2:30 PM EDT Patient phoned inquiring if he has restrictions on activity level, would like to be able to mow thelawn, has a self propelled mower. After last hospital stay no restrictions given. Please advise. * Telephone Encounter - Katty Best LPN - 04/29/2025 2:07 PM EDT Patient phoned in states he would like the physician review the most recent echo from his hospital stay and advise any changes. Patient states was unable ot increase his entresto dose to the 49/51mg because of low BP but he is currently taking the entresto 24/26mg BID and the coreg as ordered. Patient also requested Follow up OV with physician from hospital stay 04/15/2025-04/17/2025. To Dr. Mary Neal MD for review and to SO clerical to find soonest opening for hospital follow up. documented in this encounter Plan of Treatment Upcoming Encounters Date Type Department Care Team (Late st Contact Info) Description 07/29/2025 12:30 PM EDT Office Visit [facility] 703 [facility] [address] [place] [address] Mary Neal MD 917 [facility] 130 [place] [address] documented as of this encounter Visit Diagnoses Not on filedocumented in this encounter Additional Health Concerns Assessment Noted Time A fall risk assessment has been complete d for the patient 01/21/2025 10:45 AM EDT documented as of this encounter Care Teams Accounting Associate Relationship Specialty Start Date End Date Jairo Wilkins DO [address] [place] [address] PCP - General Internal Medicine 01/30/24 Jairo Wild DO [address] [place] [address] Referring Physician Otolaryngology 09/05/23 documented as of this encounter
--- OUTSIDE RECORDS SUMMARY | 2025-05-16 08:53 | XMS_ITS | Encounter Summary ---
Author Organization [facility] Address [address] [place] [address] Care Team Providers Care Rn Mobile Name Role Phone Shaquille Jairo Soliman DO Primary Care Provider [phone] Encounter Details Date Type Department Care Team (Late st Contact Info) Description 09/01/2023 External Result Encounter [facility] External Department Unsolicited Rosendojake Jairo Barros, DO [address] [place] [address] Social History Tobacco Use Types Packs/Day Years [...] Priority Date/Time Associated Diagnosis Comments ECG 12-LEAD 09/01/2023 8:31 AM EST documented in this encounter Results * ECG 12 lead (09/01/2023 8:31 AM EST) 09/01/2023 8:31 AM EST [facility] - 09/05/2023 3:24 PM EST [facility] Main [address] [address] Electrocardiograph Report Signed Patient: Arpit Sauceda MR#: [id number] : 1955 Acct:[id number] Age/Sex: 68 / M ADM Date: 09/01/23 Loc: PS Room: Type: REG CLI Attending Dr: Jairo Wild DO Ordering Provider: [...] replaced Sinus rhythm Confirmed by [id number] on 09/01/2023 2:23:20 PM Referred By: SHAQUILLE WILD Electronically Signed By:DONATO SMITH MD [facility] Transcribed By: MUS Signed By Jorge Smith MD 09/01/23 1423 Procedure Note Miki Smith MD - 09/05/2023 [facility] [place] [address] Electrocardiograph Report Signed Patient: Arpit Sauceda LMR#: [id number] : 1955cct:[id number] Age/Sex: 68 / MADM Date: 09/01/23 Loc: PS Room:Type: REG CLI Attending Dr: Jairo Wild DO Ordering Provider: [...] replaced Sinus rhythm Confirmed by SARAH MATA [facility] ([id number]) on 09/01/2023 2:23:20 PM Referred By: SHAQUILLE WILD Electronically Signed By:PITA MATA FACC Transcribed By: MUS Signed By Jorge Smith MD 09/01/23 1423 us Jairo Wild DO ECG ORDERABLES Final Resul t [address] [address], documented in this encounter Visit Diagnoses Not on filedocumented in this encounter Care Teams Rn Mobile Relationship Specialty Start Date End Date Jairo Wilkins DO PCP - General Internal Medicine 04/06/23 documented as of this encounter
--- OUTSIDE RECORDS SUMMARY | 2025-05-16 08:53 | XMS_ITS | Encounter Summary ---
Author Organization [facility] Address [address] [place] [address] Phone Care Team Providers Care Mail Order Sorter Name Role Phone RosendoJairo joseph DO Unavailable [phone] Jairo Wilkins DO Primary Care Provider [phone] Encounter Details Date Type Department Care Team (Late st Contact Info) Description 09/21/2024 Scanned Document [facility] [address] [place] [address] Scanning, Generic Provider Social History Tobacco Use [...] Description 07/29/2025 12:30 PM EDT Office Visit [facility] 703 [facility] 250 [place] [address] Mary Neal MD [address] [facility] 130 [place] [address] documented as of this encounter Visit Diagnoses Not on filedocumented in this encounter Additional Health Concerns Assessment Noted Time A fall risk assessment has been complete d for the patient 03/21/2024 3:20 PM EDT documented as of this encounter Care Teams Mail Order Sorter Relationship Specialty Start Date End Date Jairo Wilkins DO [address] [place] [address] PCP - General Internal Medicine 01/30/24 Jairo Wild DO [address] [place] [address] Referring Physician Otolaryngology 09/05/23 documented as of this encounter
--- OUTSIDE RECORDS SUMMARY | 2025-05-16 08:54 | XMS_ITS | Encounter Summary ---
Author Organization [facility] Address [address] [place] [address] Phone Care Team Providers Care Paper Twister Name Role Phone Jairo Wilkins DO Primary Care Provider Jairo Wild DO Unavailable [phone] Jairo Wilkins DO Primary Care Provider [phone] Encounter Details Date Type Department Care Team (Late st Contact Info) Description 10/24/2023 Scanned Document [facility] [address] [place] [address] Scanning, Generic Provider Social History [...] Description 07/29/2025 12:30 PM EDT Office Visit [address] [address] Mary Neal MD [address] [address] documented as of this encounter Visit Diagnoses Not on filedocumented in this encounter Additional Health Concerns Assessment Noted Time A fall risk assessment has been complete d for the patient 09/29/2023 2:04 PM EST documented as of this encounter Care Teams Paper Twister Relationship Specialty Start Date End Date Jairo Wilkins DO PCP - General Internal Medicine 08/23/23 01/29/24 Jairo Wilkins DO [address] [place] [address] PCP - General Internal Medicine 01/30/24 Jairo Wild DO [address] [place] [address] Referring Physician Otolaryngology 09/05/23 documented as of this encounter
--- OUTSIDE RECORDS SUMMARY | 2025-05-16 08:54 | XMS_ITS | Encounter Summary ---
Author Organization [facility] Address [address] [place] [address] Phone Care Team Providers Care Director Patient Accounting Name Role Phone Jairo Wilkins DO Primary Care Provider [phone] Jairo Wild DO Unavailable [phone] Jairo Wilkins DO Primary Care Provider [phone] Encounter Details Date Type Department Care Team (Late st Contact Info) Description 09/01/2023 Scanned Document [facility] [address] [place] [address] Scanning, Generic Provider Social History [...] suspected to have Coronavirus/COVID-19? No / Unsure 08/24/2023 1:11 PM EST documented as of this encounter Plan of Treatment Upcoming Encounters Date Type Department Care Team (Late st Contact Info) Description 07/29/2025 12:30 PM EDT Office Visit [facility] 703 [facility] 250 [place] [address] Mary Neal MD [address] [facility] 130 [place], [place] [address] documented as of this encounter Visit Diagnoses Not on filedocumented in this encounter Care Teams Director Patient Accounting Relationship Specialty Start Date End Date Jairo Wilkins DO PCP - General Internal Medicine 08/23/23 01/29/24 Jairo Wilkins DO [address] [place] [address] PCP - General Internal Medicine 01/30/24 Jairo Wild DO [address] [place] [address] Referring Physician Otolaryngology 09/05/23 documented as of this encounter
--- OUTSIDE RECORDS SUMMARY | 2025-05-16 08:54 | XMS_ITS | Encounter Summary ---
Author Organization [facility] Address [address] [place] [address] Phone Care Team Providers Care Meat Market Manager Name Role Phone Jairo Wilkins DO Primary Care Provider [phone] Jairo Wild DO Unavailable [phone] Jairo Wilkins DO Primary Care Provider [phone] Encounter Details Date Type Department Care Team (Late st Contact Info) Description 10/21/2023 Scanned Document [facility] [address] [place] [address] Scanning, Generic Provider Social History [...] Description 07/29/2025 12:30 PM EDT Office Visit [address] [address] Mary Neal MD [address] [facility] [address] [place] [address] documented as of this encounter Procedures Procedure Name Priority Date/Time Associated Diagnosis Comments OUTSIDE IMAGING SCAN 10/21/2023 ECHOCARDIOGRAM 10/21/2023 documented in this encounter Results * ECHOCARDIOGRAM (10/21/2023) Narrative 10/21/2023 Ordered by an unspecified provider. us Generic Provider Scanning CV ECHO PROCEDURES Fin al Result * OUTSIDE IMAGING SCAN (10/21/2023) Anatomical Region Laterality Modality Other Narrative 10/21/2023 Ordered by an unspecified provider. us Generic Provider Scanning OUTSIDE SCAN Final Result documented in this encounter Visit Diagnoses Not on filedocumented in this encounter Additional Health Concerns Assessment Noted Time A fall risk assessment has been complete d for the patient 09/29/2023 2:04 PM EST documented as of this encounter Care Teams Meat Market Manager Relationship Specialty Start Date End Date Jairo Wilkins DO PCP - General Internal Medicine 08/23/23 01/29/24 Jairo Wilkins DO [address] [place] [address] PCP - General Internal Medicine 01/30/24 Jairo Wild DO [address] [place] [address] Referring Physician Otolaryngology 09/05/23 documented as of this encounter
--- OUTSIDE RECORDS SUMMARY | 2025-05-16 08:54 | XMS_ITS | Clinical Summary ---
Author Organization [facility] Address [address] [place] [address] Care Team Providers Care Interpretative Dancer Name Role Phone Jairo Wilkins Primary Care Provider [phone] Allergies Active Allergy Reactions Criticality Noted Date Comments Other 01/03/2008 Spironolactone Low 11/30/2024 Other Reaction(s): Other Breast pain/enlargement Statins Unknown 04/06/2023 Medications ALPRAZolam (Xanax) 0.5 MG tablet every 12 (twelve) hours Active carvedilol (Coreg) 6.25 MG tablet Take 6.25 mg by mouth in the morning and 6.25 mg in the evening. Take with meals. 3 Active furosemide (Lasix) 20 MG tablet Take 20 mg by mouth Daily 3 Active losartan (Cozaar) 25 MG tablet Take 25 mg by mouth in the morning. 3 Active meloxicam (Mobic) 15 MG tablet Active spironolactone (Aldactone) 25 MG tablet TAKE 1/2 (ONE-HALF) OF A TABLET BY MOUTH DAILY 3 Active traMADol (Ultram) 50 MG tablet Take 50 mg by mouth every 6 (six) hours if needed 3 Active Sacubitril-Renetta sartan (ENTRESTO PO) Take by mouth Active TRAMADOL & DIETARY MANAGE PROD PO Active valsartan (Diovan) 80 MG tablet Take 80 mg by mouth in the morning. 5 11/30/19 26 Active digoxin (Lanoxin) 125 MCG tablet Take 125 mcg by mouth Daily 4 Active Eliquis 5 MG tablet Take 5 mg by mouth in the morning and 5 mg before bedtime. Active pantoprazole (ProtoNix) 40 MG EC tablet Take 40 mg by mouth Daily as needed Active amoxicillin-cl avulanate (Augmentin) 875-125 MG tablet Take 1 tablet by mouth every 12 (twelve) hours. 3 04/22/20 25 Discontinued warfarin (Coumadin) 1 MG tablet 5 04/22/20 25 Discontinued Active Problems Problem Noted Date Diagnosed Date Arthritis of left acromioclavicular joint 2022 Chronic pansinusitis 04/05/2023 Incomplete rotator cuff tear or rupture of left shoulder, not specified as traumatic 04/05/2023 Internal derangement of left shoulder 04/05/2023 Obstructive sleep apnea syndrome 04/05/2023 Resolved Problems Problem Noted Date Diagnosed Date Resolved Date Abnormal EKG 11/30/2024 12/31/2024 Atrial fibrillation, current ly in sinus rhythm 11/30/2024 12/31/2024 Medically noncompliant 11/30/202412/31 Body mass index (BMI) 30.0-30.9, adult 01/30/2024 12/31/2024 Sinus bradycardia 01/30/2024 12/31/2024 Hospital discharge follow-up 11/10/2023 12/31/2024 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 congestive 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, NYHA class 2 09/29/2023 12/31/2024 Personal history of COVID-19 09/29/2023 12/31/2024 Medication course changed 09/29/2023 USP current use of ant icoagulant therapy 09/07/2023 12/31/2024 Persistent atrial fibrillation 09/05/2023 12/31/2024 Former smoker 06/22/2023 12/31/2024 Hypertension, benign 06/22/2023 025 Non-ischemic cardiomyopathy 06/22/2023 12/31/2024 SOB (shortness of breath) 06/22/2023 Encounters Date Type Department Care Team Description 04/22/2025 1:45 PM EDT Office Visit [facility] [address] [place] [address] Jairo Wild, Status post nasal septoplasty (Primary Dx); Chronic congestive 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, unspecified 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 type (HCC) 04/22/2025 Telephone [facility] [address] [place] [address] Giovana Nicole MA 04/22/2025 Travel 04/10/2025 Telephone [facility] [address] [place] [address] Jairo Wild, 03/25/2025 1:30 PM EDT Office Visit [facility] [address] [place] [address] Jairo Wild, Status post nasal septoplasty (Primary Dx) 03/25/2025 Bamboo flowsheet [facility] [address] [place] [address] Jairo Wild, 03/25/2025 Travel 02/20/2025 1:15 PM EDT Office Visit [facility] [address] [place] [address] Jairo Wild, Status post nasal septoplasty (Primary Dx); Obstructive sleep apnea syndrome 02/20/2025 Bamboo flowsheet [facility] [address] [place] [address] Jairo Wild, 02/20/2025 Travel 02/13/2025 10:00 AM EDT Procedure Visit [facility] Jairo Wild DO JANETTE (obstructive sleep apnea) (Primary Dx) 02/13/2025 External Result Encounter [facility] External Department Unsolicited Jairo Wild DO from Last 3 Months Immunizations Immunization Administration Dates Next Due Hep A / Hep B 01/21/2009,05/21/2008,04/03/2008 Influenza, live, intranasal, quadrivalent 2017 Influenza, seasonal, injectable 08/08/2013 Influenza, seasonal, injecta ble, preservative free 09/01/2017,06/27/2015 Influenza, trivalent, adjuvanted 07/06/2019 Pneumococcal Conjugate PCV 13 06/27/2015 Pneumococcal Polysaccharide PPSV23 03/03/2017 Tdap 06/27/2015 Zoster, live 08/10/2013 Family History Medical History Relation Name Comments Diabetes Father Hyperlipidemia Father Hypertension Father Cancer Mother Relation Name Status Comments Father Alive Mother Social History Tobacco Use Types Packs/Day [...] Sign Reading Time Taken Comments Blood Pressure 155/89 09/05/2019 12:00 PM EST Pulse - - Temperature - - Respiratory Rate - - Oxygen Saturation - - Inhaled Oxygen Concentration - - Weight 90.7 kg (200 lb) 04/22/2025 1:47 PM EDT Height 177.8 cm (5' 10 ) 04/22/2025 1:47 PM EDT Body Mass Index 28.7 04/22/2025 1:47 PM EDT Plan of Treatment Not on file Procedures Procedure Name Priority Date/Time Associated Diagnosis Comments PATHOLOGY REQUEST FOR LAB RICHARD Routine 02/13/2025 11:00 AM EDT from Last 3 Months Results * PATHOLOGY REQUEST FOR LAB RICHARD (02/13/2025 11:00 AM EDT) PATHOLOGY REQUEST FOR LAB RICHARD 02/19/2025 9:02 AM EDT [facility] Comment:See report. Scanned copy available in EMR. Other Topography unknown / Unknown 02/13/2025 11:00 AM EDT 02/13/2025 1:32 PM EDT Narrative [facility] - 02/19/2025 9:02 AM EDT NASAL CARTILAGE Jairo Wild DO LAB BLOOD ORDERABLES Final Result [facility] [address] [place] [address], [facility] [address] [facility] [place] [address] from Last 3 Months Insurance MEDICARE [facility] [place] [address] Care Teams Interpretative Dancer Relationship Specialty Start Date End Date Jairo Wilkins DO PCP - General Internal Medicine 04/06/23
--- OUTSIDE RECORDS SUMMARY | 2025-05-16 08:54 | XMS_ITS | Clinical Summary ---
Author Organization 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 0 01/03/2008 Active Social History Tobacco Use Types Packs/Day Years Used Date Smoking Tobacco: Former Alcohol Use Standard Drinks/Week Comments Not Asked 0 (1 standard drink = 0.6 oz pur e alcohol) Sex and Gender Information Value Date Recorded Sex Assigned at Not on file Legal Sex Male 8:13 AM EST Gender Identity Not on file Sexual Orientation Not on file Last Filed Vital Signs Vital Sign Reading Time Taken Comments Blood Pressure 173/95 01/03/2008 8:00 AM EDT Pulse 93 01/03/2008 8:00 AM EDT Temperature - - Respiratory Rate - - Oxygen Saturation - - Inhaled Oxygen Concentration - - Weight 95 kg (209 lb 7 oz) 01/03/2008 8:00 AM ED T Height 180.3 cm (5' 11 ) 01/03/2008 8:00 AM EDT Body Mass Index 29.21 01/03/2008 8:00 AM EDT Plan of Treatment Health Maintenance Due Date Last Done Comments Abdominal Aortic Aneurysm Screening 1955 Anxiety Screening 1972 Depression Screening 1972 Hepatitis C Screening 1972 DTaP,Tdap,Td Vaccine (1 - Tdap) [address] Colonography 1999 Cologuard (FIT-DNA) 1999 Colonoscopy 1999 Colorectal Cancer Screening 1999 Diabetes Screening 1999 Fecal Occult Blood 1999 Sigmoidoscopy 1999 Pneumococcal Vaccine: 50+ (1 of 1 - PCV) 2004 Shingrix Vaccine (1 of 2) 2004 Advance Directive Discussion 10/03/2024 Influenza Vaccine (#1) 2025 RSV Vaccine (1 - 1-dose 75+ series) 2029
--- OUTSIDE RECORDS SUMMARY | 2025-05-16 08:58 | XMS_ITS | CCD ---
Author Organization [facility] Inform ion Partnership [facility] Care Team Providers Care Fence Builder Name Role Phone Jairo Corbin Unavailable DO Jairo Corbin Primary Care Provider DO Shalom Azar Emergency Provider [facility] MD Jair Fuller Admit Provider DO Brad Livingston Attending Provider [phone] KRISTEN Chong Other Provider Unavailable DO Papo Lucio Other Provider MD Kings Banegas Other Provider [phone] MD Jorge Burger Other Provider MD Ruby Prince Other Provider MD Dano Anderson Other Provider DIANA Ken Other Provider MD Mary Neal Other Provider MD Danny Teresa Other Provider MD Kerline Thompson Other Provider STEVE Spears- Sravani Julian Other Provider [phone] MD Sparkle Joseph Other Provider DO Papo Lucio Attending Provider [phone] JAIRO CORBIN Admitting Unavailable SHAQUILLE, DR [...] Lo Primary Care Alli Lucio, Dr. Jorge Crsytal Referring Unava ilable Naveed, Dr. Jorge Crystal Attending Unava ilable Shaquille, Dr. Jairo Lo Primary Care Dinavai sabiha Corbin, Dr. Jairo Lo Primary Care Dinavamaria m Aldridge, MsBrandon Chandler Referring Dinavamaria m Aldridge, MsBrandon Chandler Attending Unavai sabiha Corbin, Dr. Jairo Lo Primary Care Dinavamaria m Lucio, Dr. Jorge Crystal Referring Unava ilable Naveed, Dr. Jorge Crystal Attending Unava ilable Naveed, Dr. Jorge Crystal Attending Unava ilable DO Jairo Corbin Primary Care Provider DO Jairo Wild Attending Provider Jairo Corbin DO Primary Care Provider Jairo Wild DO Unavailable Jairo Corbin DO Primary Care Provider Jairo Corbin DO Primary Care Provider MARY NEAL Referring Unavailable SHAQUILLE, JAIRO Soliman Primary Care Unavailable ALDRIDGE, KARLO K Referring Unavailable BALL, JAIRO E Primary Care Unavailable ALDRIDGE, KARLO K Referring Unavailable BALL, JAIRO E Primary Care Unavailable ALDRIDGE, KARLO K Referring Unavailable BALL, JAIRO E Primary Care Unavailable Ball, DO Jairo Primary Care Provider MD Praveen Song Attending Provider [phone] Jairo Corbin MD Primary Care Provider Unavailable Primary Care Provider UnavailJairo Pitts DO Primary Care Provider Conchita MATA, Jorge Admit Provider [phone] Rohan Ascencio MD Attending Provider [phone] Bing Chong RN Other Provider Unavailable Papo Lucio DO Other Provider Kings Banegas MD Other Provider Jorge Burger MD Other Provider Ruby Prince MD Other Provider Dano Anderson MD Other Provider Karlo Aldridge APRN Other Provider Mary Neal MD Other Provider Malick MATA, Danny Layton Other Provider Kerline Thompson MD Other [facility] Jairo Wild DO Attending Provider Jairo Corbin DO Primary Care Provider Jairo Corbin DO Primary Care Provider Jairo Corbin DO Attending Provider Marty Gillette APRN Attending Provider Hemanth Springer MD Emergency Provider Ziggy Evans MD Admit Provider [phone] Ziggy Evans MD Attending Provider Hemanth Springer MD Emergency Provider Ziggy Evans MD Admit Provider Adonay Mai MD Attending Provider Bing Chong RN Other Provider Unavailable Papo Lucio DO Other Provider Kings Banegas MD Other Provider Jorge Burger MD Other Provider Ruby Prince MD Other Provider Dano Anderson MD Other Provider Karlo Aldridge APRN Other Provider Mary Neal MD Other Provider Malick MATA, Danny Layton Other Provider Jay MATA, Kerline Other Provider Tory [facility], rSavani Julian Other Provider Bing Chong Consulting Unavailable Rohan Ascencio Attending Unavailable Jorge Arango Admitting Unavailable [facility] Jairo Primary Care Unavailable Papo Lucio Consulting Unavailable Kings Banegas Consulting Unavailable Jorge Burger Consulting Unavail able Ruby Prince Consulting Unavailable Dano Anderson Consulting UnavailKarlo Alejandre Consulting Unavailable Mary Neal Consulting Unavailable Danny Teresa Consulting Unavailab ramona Thompson, Kerline Consulting Unavailable Sravani Spears Consulting Unavailable [facility] Jairo Primary Care Unavailable Praveen Song Admitting Unavailable Praveen Song Attending Unavailable Jairo Wild Admitting Unavailable Jairo Wild Attending Unavailable [facility] Primary Care Unavailable Mary Neal Admitting Unavailable Mary Neal Attending Unavailable Bing Chong Consulting Unavailable Ziggy Evans Admitting Unavailable Adonay Mai Attending Unavailable [facility] Primary Care Unavailable Bing Chong Consulting Unavailable Papo Lucio Consulting Unavailable Kings Banegas Consulting Unavailable Jorge Burger Consulting Unavail able Ruby Prince Consulting Unavailable Dano Anderson Consulting UnavailKarlo Alejandre Consulting Unavailable Mary Neal Consulting Unavailable Malick, Danny Layton Consulting Unavailab ramona Thompson, Kerline Consulting Unavailable Sravani Spears Consulting Unavailable Madeline Soni CMA Attending Provider Unavaila MAO Fernandez Attending Unavailable BALL, JAIRO E Referring Unavailable BLACKSTON, MAO Gentile Attending Unavailable BALL, JAIRO E Referring Unavailable BLACKSTON, MAO T Attending Unavailable BALL, JAIRO E Referring Unavailable BRINK, EDWIN Attending Unavailable BALL, JAIRO E Referring Unavailable BRINK, EDWIN Attending Unavailable BALL, JAIRO E Referring Unavailable BLACKSTON, MAO Gentile Attending Unavailable BALL, JAIRO E Referring Unavailable BRINK, EDWIN Attending Unavailable BALL, JAIRO E Referring Unavailable BRINK, EDWIN Attending Unavailable BALL, JAIRO E Referring Unavailable BLACKSTON, MAO T Attending Unavailable BALL, JAIRO E Referring Unavailable BRINK, EDWIN Attending Unavailable BALL, JAIRO E Referring Unavailable BRINK, EDWIN Attending Unavailable BALL, JAIRO E Referring Unavailable MURCEK, JAIRO W Attending Unavailable MURCEK, JAIRO W Attending Unavailable MURCEK, JAIRO W Referring Unavailable MURCEK, JAIRO W Attending Unavailable BLACKSTON, MAO T Attending Unavailable BALL, JAIRO E Referring Unavailable BRINK, EDWIN Attending Unavailable BALL, JAIRO E Referring Unavailable BLACKSTON, MAO T Attending Unavailable BALL, JAIRO E Referring Unavailable BRINK, EDWIN Attending Unavailable BALL, JAIRO E Referring Unavailable BRINK, EDWIN Attending Unavailable BALL, JAIRO E Referring Unavailable BLACKSTON, MAO T Attending Unavailable BALL, JAIRO E Referring Unavailable KELBLEY, ALIA Attending Unavailable BALL, JAIRO E Referring Unavailable BRINK, EDWIN Attending Unavailable BALL, JAIRO E Referring Unavailable BRINK, EDWIN Attending Unavailable BALL, JAIRO E Referring Unavailable MURCEK, JAIRO W Attending Unavailable MURCEK, JAIRO W Attending Unavailable ALDRIDGE, KARLO K Attending Unavailable BALL, JAIRO E Primary Care Unavailable NEAL, MARY Attending Unavailable ALDRIDGE, KARLO K Referring Unavailable BALL, [...] sources) Corticosteroids Propensity to adverse reactions sensitivty [facility] Other (16 sources) Gyniuuh-NUG-VxW Reductase Inhibitor; Translations: [Bizfjgn-JWZ-LsM Reductase Inhibitor] Propensity to adverse reactions 02-26-20 Hives, muscle aches [facility] (5 sources) Hmg-Coa Reductase Inhibitors (Statins); Translations: [Statins] Allergy to drug (finding) Other -[facility] DO Work Phone: (12 sources) HMG-CoA reductase inhibitor; Translations: [VQWMEKL-CCO-XVB REDUCTASE INHIBITORS] Drug Allergy 04-06-20 Unknown, Other (See Comments) [facility] (11 sources) Non-steroidal anti-inflammatory agent; Translations: [NSAIDS (NON-STEROIDAL ANTI-INFLAMMATORY DRUG)] Drug Intolerance 01-03-20 08 Unknown, Other (See Comments) [facility] (14 sources) Corticosteroids; Translations: [Corticosteroids (Glucocorticoids)] Allergy to substance 11-01-19 24 sensitivty [facility] (20 sources) HMG-CoA reductase inhibitor Drug Allergy 04-06-20 23 Unknown [facility] (20 sources) Other Propensity to adverse reactions 01-03-20 08 [facility] Work Phone: (4 sources) Spironolactone; Translations: [SPIRONOLACTONE] Drug Allergy 11-30-19 25 Other [facility] Work Phone: (13 sources) Spironolactone Drug Allergy 11-30-19 25 [facility] Medications Current Medications Medication Drug Class(es) Dates Sig (Normalized) Sig (Original) apixaban 5 mg oral tablet (6 sources) Factor Xa Inhibitor Start: 04-17-2025 take 1 tablet by mouth twice daily Apixaban (Eliquis) 5 mg tablet Active 5 MG PO Twice daily April 17, 2025 12:00am Complies with drug therapy ascorbic acid 1000 mg oral tablet (20 sources) Vitamin C Start: 01-31-2024 Ascorbic Acid (Vitamin C) (Vitamin C With Gabbi Hips) 1,000 mg tablet Active 500 MG PO Daily January 31, 2024 3:50pm Complies with drug therapy Start: 09-01-2023 End: 01-31-2024 take 1 tablet [...] PO Daily 90 February 25, 2023 12:00am Complies with drug therapy b complex 0.4 mg tablet (1 source) take 1 tablet by mouth once daily b complex 0.4 mg tablet Take 1 tablet by mouth once daily. Active BLUE-GREEN ALGAE, SPIRULINA, ORAL (1 source) take 1000 mg by mouth once daily BLUE-GREEN ALGAE, SPIRULINA, ORAL Take 1,000 mg by mouth once daily. Active cetirizine hydrochloride 10 mg oral capsule (20 sources) Histamine-1 Receptor Antagonist Start: End: take 1 capsule by mouth once daily as needed Cetirizine (Zyrtec) 10 mg capsule Active 10 MG PO Daily as needed for angioedema January 22, 2025 12:00am Complies with drug therapy Start: 09-01-2023 End: 12-25-2024 take 1 tablet by mouth at bedtime as needed Cetirizine 10 mg Tablet Discontinued 10 MG PO Bedtime as needed for Allergy Symptoms September 01, 2023 1:00am December 25, 2024 1:00am doxycycline hyclate 100 mg oral capsule (7 sources) Tetracycline-class Drug Start: 12-10-2022 take 1 capsule by mouth twice daily Doxycycline Hyclate 100 MG 1 capsule Orally twice daily for 7 days Dec, Active Fish Oils (20 sources) furosemide 20 mg oral tablet (20 sources) Loop Diuretic Start: 04-24-2025 take 1 tablet by mouth twice daily Furosemide (Lasix) 20 mg tablet Active 20 MG PO Twice daily 60 30 April 24, 2025 5:51pm Complies with drug therapy Start: 04-22-2025 End: 04-24-2025 take 2 tablets by mouth twice daily Furosemide (Lasix) 20 mg tablet Discontinued 40 MG PO Twice daily 120 April 22, 2025 4:05pm April 24, 2025 5:51pm Start: 04-22-2025 take 2 tablets by mo [facility] every twelve hours furosemide (Lasix) 20 mg tablet Take 2 tablets (40 mg) by mouth every 12 hours. 04/22/2025 Active Start: 04-15-2025 End: 04-22-2025 take 1 tablet by mouth once daily Furosemide (Lasix) 20 mg tablet Discontinued 20 MG PO Daily April 15, 2025 12:00am April 22, 2025 4:06pm Start: 10-24-2023 End: 01-31-2024 take 2 tablets [...] Start: 02-27-2023 take 1 tablet by alfonso every twenty-four hours Furosemide 40 MG 1 tablet Orally Once a day January, Active Start: 02-25-2023 End: 12-25-2024 take 1 tablet by mouth twice daily Furosemide (Lasix) 20 mg tablet Discontinued 20 MG PO Twice daily January 31, 2024 3:51pm December 25, 2024 12:59am Start: 02-25-2023 End: 10-21-2023 take 1 tablet by mouth once daily Furosemide (Lasix) 20 mg tablet Discontinued 20 MG PO Daily February 25, 2023 12:00am October 21, 2023 5:18pm gabapentin 100 mg oral capsule (7 sources) Anti-epileptic Agent Gabapentin 100 MG Orally Active ivermectin 6 mg oral tablet (5 sources) Antiparasitic, Pediculicide Start: 04-15-2025 Ivermectin 6 mg tablet Active 12 MG PO .COMPLEX April 15, 2025 12:00am 12 mg orally; Complies with drug therapy take 2 tablets by mouth twice da lissette ivermectin (Stromectol) 3 mg tablet Take 2 tablets (6 mg) by mouth 2 times a day. Active lactobacillus combination no.4 (Probiotic) 3 billion cell capsule (1 source) lactobacillus co mbination no.4 (Probiotic) 3 billion cell capsule Take 1 capsule by mouth once daily. Active Magnesium Oxide (20 sources) Start: 01-31-2024 take 300 mg by mouth at bedtime Magnesium Oxide Active 300 MG PO Bedtime January 31, 2024 12:00am Start: 01-31-2024 take 300 mg by mouth once bay y Magnesium Oxide Active 300 MG PO Daily January 31, 2024 12:00am Start: 02-25-2023 End: 01-31-2024 take 1 tablet by mouth once daily Magnesium Oxide 400 mg (241.3 mg magnesium) Tablet Discontinued 400 MG PO Daily February 25, 2023 12:00am January 31, 2024 8:43am magnesium oxide 300 mg magnesium tablet (6 sources) take 1 tablet by alfonso th once daily at bedtime magnesium oxide 300 mg magnesium tablet Take 1 tablet by mouth once daily at bedtime. Active magnesium oxide 300 mg magnesium tablet Take by mouth. Active Magnesium Oxide 300 mg magnesium tablet (8 sources) Start: 01-31-2024 take 1 tablet by mouth at bedtime Magnesium Oxide 300 mg magnesium tablet Active 300 MG PO Bedtime January 31, 2024 12:00am Complies with drug therapy Start: 01-31-2024 take 1 tablet by mouth at bedt marielena Start: 01-31-2024 take 1 tablet by mouth at bedt marielena Magnesium Oxide 300 mg magnesium tablet Active 300 MG PO Bedtime January 31, 2024 12:00am melatonin 5 mg oral capsule (20 sources) Start: 12-25-2024 End: 01-22-2025 take 1 capsule by mouth at bedtime as needed for sleep Melatonin 5 mg capsule Active 5 MG PO Bedtime as needed for sleep January 22, 2025 4:23pm Complies with drug therapy Start: 02-24-2023 End: 01-31-2024 take 1 tablet by mouth at bedtime as needed for sleep Melatonin 5 mg Tablet Discontinued 5 MG PO Bedtime as needed for Sleep February 24, 2023 12:00am January 31, 2024 3:51pm take 1 tablet by alfonso th at bedtime Melatonin 300 MCG Oral Tablet TAKE 1 TABLET Bedtime Quantity: 0 Refills: 0 Ordered: 03-Mar-2023 DO Active niacinamide 500 mg oral tablet (7 sources) End: 09-05-2023 take 1 tablet by mouth once daily niacinamide 500 mg tablet Take 1 tablet (500 mg) by mouth once daily. Active pantoprazole 40 mg delayed release oral tablet (20 sources) Proton Pump Inhibitor Start: 06-22-2024 End: 03-22-2025 take 1 tablet by mouth once daily as needed Pantoprazole 40 mg tablet,delayed release (DR/EC) Active 40 MG PO Daily as needed for dysphagia March 22, 2025 1:40pm Complies with drug therapy Start: 01-31-2024 End: 06-08-2024 take 1 tablet by mouth once daily Pantoprazole 40 mg tablet,delayed release (DR/EC) Discontinued 40 MG PO Daily January 31, 2024 12:00am June 08, 2024 10:06am sacubitril 49 mg / valsartan 51 mg oral tablet (20 sources) Angiotensin 2 Receptor Fannie Start: 04-17-2025 End: 05-01-2025 take 1 tablet by mouth twice daily Sacubitril-Valsartan (Entresto) 49-51 mg tablet Active 1 TAB PO Twice daily 60 May 01, 2025 4:22pm Complies with drug therapy Start: 12-25-2024 End: 01-22-2025 take 1 tablet by mouth once daily Sacubitril-Valsartan (Entresto) 24-26 mg tablet Discontinued 1 TAB PO Daily December 25, 2024 12:00am January 22, 2025 4:24pm Start: 12-23-2023 End: 11-30-2025 take 1 tablet by mouth twice daily Sacubitril-Valsartan (Entresto) 24-26 mg tablet Discontinued 1 TAB PO Twice daily 60 March 11, 2025 12:00am April 17, 2025 3:54pm Start: 09-01-2023 End: 01-31-2024 take 1 tablet [...] 10:20am Sacubitril-Valsa rtan (ENTRESTO PO) Take by mouth Active Sacubitril-Valsa rtan (ENTRESTO PO) Take by mouth. Active Selenium (4 sources) Start: 01-31-2024 take 50 ug by mouth once daily Selenium Active 50 MCG PO Daily January 31, 2024 12:00am selenium 50 mcg tablet (6 sources) take 1 tablet by mouth once daily selenium 50 mcg tablet Take 1 tablet (50 mcg) by mouth once daily. Active Selenium 50 mcg tablet (8 sources) Start: 01-31-2024 take 1 tablet by mouth once daily Selenium 50 mcg tablet Active 50 MCG PO Daily January 31, 2024 12:00am Complies with drug therapy Start: 01-31-2024 take 1 tablet by mouth once da lissette Start: 01-31-2024 take 1 tablet by mouth once da lissette Selenium 50 mcg tablet Active 50 MCG PO Daily January 31, 2024 12:00am spirulina 1000 mg oral tablet (4 sources) Start: 04-15-2025 take 1000 mg by mouth once daily Spirulina 1000mg Active 1000 MG PO Daily April 15, 2025 12:00am Complies with drug therapy TRAMADOL & DIETARY MANAGE PROD PO (20 sources) TRAMADOL & DIETA RY MANAGE PROD PO Active TRAMADOL & DIETA RY MANAGE PROD PO as directed Orally Active ubiquinol (1 source) take 1 capsule by [facility] once daily COQ10, UBIQUINOL, ORAL Take 1 capsule by mouth once daily. Active vit C/zinc/Panax ginseng/hrb62 (IMMUNE SUPPORT COMPLEX ORAL) (1 source) take 1 capsule by mo uth once daily vit C/zinc/Panax ginseng/hrb62 (IMMUNE SUPPORT COMPLEX ORAL) Take 1 capsule by mouth once daily. Active XyliMelts 500 MG (1 source) XyliMelts 500 MG as directed Mouth/Throat Active zinc gluconate 50 mg oral tablet (1 source) take 0.5 tablet by m outh once daily Zinc 50 MG 1/2 tablet Orally Once a day Active Completed/Discontinued Medications Medication Drug Class(es) Dates Sig (Normalized) Sig (Original) ALPRAZolam 0.5 mg oral tablet (20 sources) Benzodiazepine Start: 06-18-2024 End: 02-27-2025 take 1 tablet by mouth three times daily as needed for anxiety Alprazolam 0.5 mg tablet Discontinued 0.5 MG PO Three times daily as needed for anxiety 270 September 18, 2024 6:44pm February 27, 2025 11:46pm Start: 12-07-2023 End: 01-31-2024 take 1 tablet by mouth three times daily as needed for anxiety Alprazolam 0.5 mg tablet Discontinued 0.5 MG PO Three times daily as needed for anxiety December 07, 2023 10:56pm January 31, 2024 3:54pm Start: 02-23-2023 End: 12-07-2023 take 0.75 mg by mouth once daily at bedtime Alprazolam 0.5 mg Tablet Discontinued 0.75 MG PO Daily at bedtime February 23, 2023 12:00am December 07, 2023 10:58pm Start: 02-23-2023 End: 12-07-2023 take 0.75 mg [...] by mouth twice daily as needed Alprazolam 0.5 mg tablet Discontinued 0.5 MG PO .COMPLEX as needed for anxiety January 31, 2024 3:49pm June 18, 2024 1:29pm 0.5 mg orally 1 - 1.5 tablets BID PRN; ALPRAZolam (Xana x) 0.5 MG tablet every 12 (twelve) hours Active take 1 tablet by alfonso th [...] 12:00am February 25, 2023 12:47pm Start: 02-10-2023 End: 04-22-2025 take 1 tablet by mouth every twelve hours amoxicillin-clavulanate (Augmentin) 875-125 MG tablet Take 1 tablet by mouth every 12 (twelve) hours. 02/10/2023 04/22/2025 Discontinued Start: 02-09-2023 take 1 tablet by alfonso th every twelve hours Amoxicillin-Pot Clavulanate 875-125 MG 1 tablet Orally every 12 hrs for 14 days January, Active take 1 tablet by alfonso th every twelve hours Augmentin 500-125 MG 1 tablet Orally every 12 hrs Active atorvastatin 40 mg oral tablet (20 sources) HMG-CoA Reductase Inhibitor Start: 02-25-2023 End: 03-02-2023 take 1 tablet by mouth once daily in the evening Atorvastatin 40 mg Tablet Discontinued 40 MG PO Every evening February 25, 2023 12:00am March 02, 2023 12:31pm benazepril hydrochloride 10 mg oral tablet (20 sources) Angiotensin Converting Enzyme Inhibitor Start: 02-23-2023 End: 02-25-2023 take 1 tablet by mouth once daily Benazepril 10 mg Tablet Discontinued 10 MG PO Daily February 23, 2023 12:00am February 25, 2023 12:47pm take 1 tablet by mouth once bay y Benazepril HCl 10 mg TAKE 1 TABLET BY MOUTH DAILY Active carvedilol 3.125 mg oral tablet (20 sources) alpha-Adrenergic Fannie, beta-Adrenergic Fannie Start: 03-11-2025 End: 04-17-2025 take 1 tablet by mouth twice daily at mealtime Carvedilol 3.125 mg tablet Discontinued 3.125 MG PO Twice daily with meals March 11, 2025 4:32pm April 17, 2025 3:54pm Start: 02-27-2023 End: 07-30-2025 take 1 tablet by mouth twice daily at mealtime Carvedilol 12.5 mg tablet Discontinued 12.5 MG PO Twice daily with meals January 31, 2024 3:50pm December 01, 2024 1:15pm Start: 02-25-2023 End: 01-21-2026 take 1 tablet by mouth twice daily carvedilol (Coreg) 6.25 mg tablet Indications: Non-ischemic cardiomyopathy (Multi) Take 1 tablet (6.25 mg) by mouth 2 times daily (morning and late afternoon). 180 tablet 2 01/21/2025 01/21/2026 Active cholecalciferol 0.05 mg oral capsule (20 sources) Vitamin D Start: 02-24-2023 End: 01-31-2024 take 1 capsule by mouth once daily Cholecalciferol (Vitamin D3) (Vitamin D3) 50 mcg (2,000 unit) Capsule Discontinued 50 MCG PO Daily February 24, 2023 12:00am January 31, 2024 3:50pm take 1 tablet by mouth once bay y cholecalciferol (Vitamin D3) 125 mcg (5,000 units) tablet Take 1 tablet (125 mcg) by mouth once daily. Active take 1 tablet by mouth once bay y Vitamin D3 50 MCG (2000 UT) Oral Tablet Take 1 tablet daily Quantity: 0 Refills: 0 Ordered: 03-Mar-2023 DO Active digoxin 0.125 mg oral tablet (20 sources) Cardiac Glycoside Start: 10-24-2023 End: 07-30-2025 take 1 tablet by mouth once daily Digoxin (Digox) 125 mcg (0.125 mg) tablet Discontinued 125 MCG PO Daily October 24, 2023 1:00am December 01, 2024 1:14pm empagliflozin 10 mg oral tablet (4 sources) Sodium-Glucose Cotransporter 2 Inhibitor Start: 04-15-2023 take 1 tablet by mouth once daily Jardiance 10 MG Oral Tablet TAKE 1 TABLET BY MOUTH ONCE DAILY Quantity: 90 Refills: 3 Ordered: 15-Apr-2023 Jorge Lucio DO Start : 15-Apr-2023 Active inositol 100 mg / niacin 400 mg oral capsule (20 sources) Nicotinic Acid Start: 09-01-2023 niacin, inositol niacinate, 400 mg niacin (500 mg) capsule 1 capsule if needed. 09/01/2023 Active Start: 09-01-2023 End: 07-30-2024 take 1 capsule by mouth once daily at bedtime Niacin (Inositol Niacinate) (Niacin Flush Free) 400 mg niacin (500 mg) Capsule Discontinued 1 CAP PO Daily at bedtime September 01, 2023 1:00am June 08, 2024 10:06am losartan potassium 25 mg oral tablet (20 sources) Angiotensin 2 Receptor Fannie Start: 02-25-2023 End: 03-02-2023 take 1 tablet by mouth once daily in the morning Losartan 25 mg Tablet Discontinued 25 MG PO Every morning February 25, 2023 12:00am March 02, 2023 3:16pm Magnesium (14 sources) Start: 02-27-2023 Magnesium 400 MG as directed Orally January, Not-Taking/PRN Start: 02-27-2023 Magnesium 400 MG as directed Orally January, Active Magnesium Carb,Citrate,Oxide (Magnesium Complex) 300 mg magnesium Tablet (17 sources) Start: 02-24-2023 End: 02-25-2023 take 1 [...] 24, 2023 12:00am February 25, 2023 12:47pm meloxicam 15 mg oral tablet (20 sources) Nonsteroidal Anti-inflammatory Drug Start: 11-09-2022 End: 07-30-2024 take 1 tablet by mouth once daily as needed Meloxicam 15 mg tablet Discontinued 15 MG PO Daily as needed January 31, 2024 12:00am May 15, 2024 4:59pm niacin 500 mg oral tablet (20 sources) Nicotinic Acid End: 12-31-2024 niacin 500 MG tablet 1 (one) time each day at the same time. 12/31/2024 Discontinued End: 09-29-2023 take 2 tablets by mouth once daily niacin 500 mg tablet Take 2 tablets (1,000 mg) by mouth once daily. 0 09/29/2023 Discontinued (Therapy completed) 24 hr nitroglycerin 0.2 mg/hr transdermal system (17 sources) Nitrate Vasodilator Start: 02-25-2023 End: 03-02-2023 apply 0.2 mg transdermal route every hour Nitroglycerin 0.2 mg/hr Patch 24 Hour Discontinued 1 EACH TRANSDERML DAILY@0600 30 February 25, 2023 12:00am March 02, 2023 12:33pm Start: 02-25-2023 End: 03-02-2023 Nitroglycerin Discontinued 1 EACH TRANSDERML DAILY@0600 30 February 25, 2023 12:00am March 02, 2023 12:33pm [place] 7-Iui-Vso-Fish Oil (Fish Oil) 60-90-500 mg capsule (12 sources) Start: 01-31-2024 End: 01-31-2024 take 1 capsule by mouth once daily [place] 6-Zxj-Nyi-Fish Oil (Fish Oil) 60-90-500 mg capsule Discontinued [...] Extended Release Active 20 MEQ PO Daily February 24, 2023 11:00pm Start: 02-24-2023 End: 02-25-2023 take 1 tablet by mouth once daily Potassium Chloride 10 mEq Tablet Extended Release Discontinued MEQ PO Daily February 24, 2023 12:00am [...] Active rosuvastatin calcium 5 mg oral tablet (10 sources) HMG-CoA Reductase Inhibitor Start: 05-15-2024 End: 06-08-2024 take 1 tablet by mouth once daily Rosuvastatin 5 mg tablet Discontinued 5 MG PO Daily May 15, 2024 12:00am June 08, 2024 10:07am Sod Picosulf-Mag Ox-Citric Ac (10 sources) Start: 05-10-2024 End: 09-21-2024 take 1 mL by mouth once daily Sod Picosulf-Mag Ox-Citric Ac (Clenpiq) 10 mg-3.5 gram- 12 gram/175 mL solution Discontinued 175 ML PO Daily 10 03May 10, 2024 12:00am September 21, 2024 2:11pm please follow instructions provided by Dr. Song's office. Start: 05-10-2024 take 1 mL by mouth once daily Sod Picosulf-Mag Ox-Citric Ac (Clenpiq) 10 mg-3.5 gram- 12 gram/175 mL solution Active 175 ML PO Daily 10 03May 10, 2024 12:00am please follow instructions provided by Dr. Song's office. spironolactone 25 mg oral tablet (20 sources) Aldosterone Antagonist Start: 02-27-2023 Spironolactone 25 MG 1 tablet Orally January, Active Start: 02-25-2023 End: 07-30-2025 take 0.5 tablet by mouth once daily spironolactone (Aldactone) 25 MG tablet TAKE 1/2 (ONE-HALF) OF A TABLET BY MOUTH DAILY 02/25/2023 Active Start: 02-25-2023 End: 12-24-2024 Spironolactone 25 mg Tablet Discontinued 12.5 MG PO Daily February 25, 2023 12:00am December 24, 2024 4:23pm Start: 02-25-2023 take 12.5 mg by mout h once daily Spironolactone Active 12.5 MG PO Daily February 25, 2023 12:00am traMADol hydrochloride 50 mg oral tablet (20 sources) Opioid Agonist Start: 11-27-2022 End: 10-26-2024 take 1 tablet by mouth every six hours as needed for pain Tramadol 50 mg Tablet Discontinued 50 MG PO Q6H as needed for Pain February 23, 2023 12:00am January 02, 2024 5:48pm valsartan 40 mg oral tablet (20 sources) Angiotensin 2 Receptor Fannie Start: 03-11-2025 End: 03-11-2025 take 1 tablet by mouth once daily Valsartan 40 mg tablet Discontinued 40 MG PO Daily 60 March 11, 2025 4:32pm March 11, 2025 4:44pm Start: 11-30-2024 End: 11-30-2025 take 1 tablet by mouth twice daily Valsartan (Diovan) 80 mg tablet Discontinued 80 MG PO Twice daily 60 December 01, 2024 1:00am January 22, 2025 4:25pm Start: 11-30-2024 End: 01-21-2026 take 1 tablet by mouth once daily Valsartan (Diovan) 80 mg tablet Discontinued 80 MG PO Daily 30 January 22, 2025 4:24pm March 11, 2025 4:39pm warfarin sodium 1 mg oral tablet (20 sources) Vitamin K Antagonist Start: 10-19-2023 End: 04-22-2025 take 1 tablet by mouth at bedtime Warfarin 1 mg tablet Discontinued 1 MG PO Bedtime October 21, 2023 1:00am April 17, 2025 3:54pm Start: 10-19-2023 take 1 tablet by alfonso th at bedtime Warfarin 1 mg tablet Active 1 MG PO Bedtime October 21, 2023 1:00am Start: 09-23-2023 End: 10-23-2023 take 1 tablet by mouth once daily in the evening warfarin (Coumadin) 5 mg tablet Indications: Paroxysmal atrial fibrillation (Multi) Take 1 tablet (5 mg) by mouth once daily in the evening. Take as directed. 30 tablet 09/23/2023 Active xylitol 500 mg oral lozenge (4 sources) Start: 09-01-2023 End: 12-25-2024 Xylitol (Xylimelts) 500 mg Muco-Adhesive Buccal Tablet Discontinued 500 MG MUCOUS MEM Bedtime September 01, 2023 1:00am December 25, 2024 1:01am Xylitol (Xylimelts) 500 mg Muco-Adhesive Buccal Tablet (12 sources) Start: 09-01-2023 End: 12-25-2024 Xylitol (Xylimelts) 500 mg Muco-Adhesive Buccal Tablet Discontinued 500 MG MUCOUS MEM Bedtime September 01, 2023 1:00am December 25, 2024 1:01am Start: 09-01-2023 Xylitol (Xylim elts) 500 mg Muco-Adhesive Buccal Tablet Active 500 MG MUCOUS MEM Bedtime September 01, 2023 1:00am Start: 09-01-2023 Xylitol (Xylim elts) 500 mg Muco-Adhesive Buccal Tablet Active 500 MG MUCOUS MEM Bedtime September 01, 2023 12:00am Zinc (20 sources) Start: 02-24-2023 End: 12-25-2024 take 1 tablet by mouth at bedtime Zinc 25 mg Tablet Discontinued 25 MG PO Bedtime February 24, 2023 12:00am December 25, 2024 5:54pm Start: 02-24-2023 take 1 tablet by mouth at bedt marielena Zinc 25 mg Tablet Active 25 MG PO Bedtime February 24, 2023 12:00am Start: 02-24-2023 take 25 mg by mouth at bedtime Zinc Active 25 MG PO Bedtime February 23, 2023 11:00pm Start: 02-24-2023 take 25 mg by mouth at bedtime Zinc Active 25 MG PO Bedtime February 24, 2023 12:00am Zinc 25 MG TABS TAKE 1 TABLET DAILY. Quantity: 0 Refills: 0 Ordered: 03-Mar-2023 DO Active zinc acetate 25 mg oral capsule (9 sources) End: 05-10-2025 take 1 capsule by mouth once daily zinc acetate 25 mg (zinc) capsule Take 1 capsule by mouth once daily. 05/10/2025 Discontinued (Therapy completed) zolpidem tartrate 5 mg oral tablet (20 sources) gamma-Aminobuty lizzette Acid-ergic Agonist Start: 04-21-2023 End: 12-31-2024 zolpidem (Ambien) 5 MG tablet Take 5 mg by mouth as needed at bedtime. 04/21/2023 12/31/2024 Discontinued Problems Active Problems Problem Classification Problem Date Documented Da te Episodic/Chronic Acute bronchitis (1 source) Acute bronchitis due to other specified organisms Episodic Anxiety disorders (20 sources) Generalized anxiety disorder; Translations: [Generalized anxiety disorder] Chronic Cardiac dysrhythmias (20 sources) Paroxysmal atrial fibrillation; Translations: [Paroxysmal atrial fibrillation] Onset: 3 Resolved: 5 09-05-2023 Chronic Chronic obstructive pulmonary disease and bronchiectasis (1 source) Bronchitis, not specified as acute or chronic Episodic Congestive 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; nonhypertensive (20 sources) Acute systolic (congestive) 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; Translations: [Congestive 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] Onset: 3 Resolved: Chronic Comment on above: Echo: LVEF 40-45%, L AE and inferolateral hypokinesis - 01/2023Echo: LVEF 30-35% - 10/2023Echo: LVEF 50-55%, normal RV size/function, no atrial enlargement - 03/2024 Echo: LVEF 40-45%, L AE and inferolateral hypokinesis - 01/2023,Echo: LVEF 30-35% - 10/2023Echo: LVEF 50-55%, normal RV size/function - 03/2024 Echo: LVEF 40-45%, L AE, normal RV size/function, RVSP 50-60 - 04/2025 LHC - w/ mild diseas e - 01/2023ECHOCARDIOGRAM: LVEF 40-45%, LAE and inferolateral hypokinesis - 01/2023ECHOCARDIOGRAM: LVEF 30-35% - 10/2023ECHOCARDIOGRAM: LVEF 50-55%, normal RV size/function, no atrial enlargement - 03/2024ECHOCARDIOGRAM: LVEF 40-45%, LAE, normal RV size/function, RVSP 50-60 - 04/2025 Coronary atherosclerosis and other heart disease (20 sources) Coronary arteriosclerosis; Translations: [Atherosclerotic heart disease of [place] coronary artery without angina pectoris] Onset: Chronic Deficiency and other anemia (9 sources) Anemia; Translations: [Anemia, unspecified] 05-30-2024 Episodic Deficiency and other anemia (8 sources) Iron deficiency anemia; Translations: [Iron deficiency anemia, unspecified] 09-21-2024 Episodic Diabetes mellitus without complication (2 sources) Impaired fasting glycemia; Translations: [Impaired fasting glucose] 05-01-2025 Episodic Disorders of lipid metabolism (20 sources) Hypercholesterolemia; Translations: [Pure hypercholesterolemia, unspecified] Chronic Disorders of teeth and jaw (18 sources) Dental caries; Translations: [Dental caries, unspecified] 10-21-2023 Episodic Esophageal disorders (12 sources) Gastroesophageal reflux disease; Translations: [Gastro-esophageal reflux disease without esophagitis] 09-21-2024 Chronic Esophageal disorders (8 sources) Esophagitis; Translations: [Esophagitis] 09-21-2024 Episodic Essential hypertension (20 sources) Essential hypertension; Translations: [Essential (primary) hypertension] Onset: 3 Resolved: Chronic Gastritis and duodenitis (8 sources) Gastritis; Translations: [Gastritis, unspecified, without bleeding] 09-21-2024 Episodic Gastrointestinal hemorrhage (12 sources) Melena; Translations: [Melena] 01-31-2024 Episodic Genitourinary symptoms and ill-defined conditions (1 source) Nocturia Episodic Hemorrhoids (8 sources) Hemorrhoids; Translations: [Unspecified hemorrhoids] 09-21-2024 Episodic Hyperplasia of prostate (20 sources) Nocturia due to benign prostatic hypertrophy; Translations: [Benign prostatic hyperplasia with lower urinary tract symptoms] Chronic Nonmalignant breast conditions (3 sources) Hypertrophy of breast; Translations: [HYPERTROPHY OF BREAST] Onset: 3 Episodic Nonspecific chest pain (7 sources) Chest pain; Translations: [Chest pain, unspecified] Episodic Osteoarthritis (20 sources) Bilateral primary osteoarthritis of hip; Translations: [Osteoarthritis of knee] Onset: 8 04-05-2023 Chronic Other aftercare (3 sources) skilled nursing (current) use of opiate analgesic; Translations: [Long-term (current) use of other medications] 03-11-2025 Episodic Other aftercare (4 sources) High risk drug monitoring status; Translations: [skilled nursing (current) use of opiate analgesic] Episodic Other aftercare (20 sources) Long-term current use of 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; Translations: [[employer]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] Onset: 3 Resolved: 5 09-07-2023 Episodic Other aftercare (9 sources) Drug therapy finding; Translations: [skilled nursing (current) use of opiate analgesic] 03-09-2025 Episodic Other aftercare (2 sources) skilled nursing (current) use of 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s; Translations: [[employer]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] Onset: 3 Episodic Other and unspecified benign neoplasm (8 sources) History of polyp of colon; Translations: [History of colonic polyps] 09-21-2024 Episodic Other connective tissue disease (19 sources) Spasm of cervical paraspinous muscle; Translations: [Other muscle spasm] 09-11-2024 Episodic Other gastrointestinal disorders (15 sources) Dysphagia; Translations: [Dysphagia] Episodic Other gastrointestinal disorders (8 sources) History of stricture of esophagus; Translations: [Personal history of other diseases of the digestive system] 03-22-2025 Episodic Other hereditary and degenerative nervous system conditions (9 sources) Impaired cognition; Translations: [Mild cognitive impairment, so stated] 03-09-2025 Chronic Other hereditary and degenerative nervous system conditions (1 source) Mild cognitive impairment, so stated; Translations: [Mild cognitive impairment, so stated] 03-11-2025 Chronic Other lower respiratory disease (20 sources) Orthopnea; Translations: [Orthopnea] 02-24-2023 Episodic Other lower respiratory disease (5 sources) Paroxysmal nocturnal dyspnea; Translations: [Dyspnea, unspecified] 02-23-2023 Episodic Other lower respiratory disease (1 source) Dyspnea, unspecified; Translations: [Other respiratory abnormalities] 02-25-2023 Episodic Other lower respiratory disease (4 sources) Orthopnea; Translations: [Orthopnea] 02-25-2023 Episodic Other nervous system disorders (2 sources) Impaired cognition; Translations: [Other symptoms and signs involving cognitive functions and awareness] 10-21-2023 Episodic Other nervous system disorders (2 sources) Other symptoms and signs involving cognitive functions and awareness; Translations: [Unspecified persistent mental disorders due to conditions classified elsewhere] 10-21-2023 Episodic Other non-traumatic joint disorders (20 sources) Derangement of left shoulder joint; Translations: [Other specific joint derangements of left shoulder, not elsewhere classified] Onset: 3 04-05-2023 Chronic Other nutritional; endocrine; and metabolic disorders (20 sources) Body mass index 30+ - obesity; Translations: [Body mass index (BMI) 30.0-30.9, adult] Onset: 4 Resolved: 5 01-30-2024 Chronic Other nutritional; endocrine; and metabolic disorders (3 sources) Other obesity due to excess calories Chronic Other nutritional; endocrine; and metabolic disorders (4 sources) Body mass index (BMI) 30.0-30.9, adult; Translations: [Body mass index (BMI) 30.0-30.9, adult] Onset: 5 Chronic Other nutritional; endocrine; and metabolic disorders (3 sources) Obesity caused by energy imbalance; Translations: [Other obesity due to excess calories] 09-05-2023 Chronic Other nutritional; endocrine; and metabolic disorders (3 sources) Body mass index (BMI) 31.0-31.9, adult; Translations: [Body mass index (BMI) 31.0-31.9, adult] Onset: 4 Chronic Other skin disorders (7 sources) Localized swelling of left lower leg; Translations: [Localized swelling, mass and lump, left lower limb] 12-24-2024 Episodic Other upper respiratory disease (6 sources) Hypertrophy of nasal turbinates; Translations: [Hypertrophy of nasal turbinates] Onset: 8 12-31-2024 Episodic Other upper respiratory disease (2 sources) Deviated nasal septum; Translations: [Deviated nasal septum] 12-31-2024 Episodic Other upper respiratory infections (20 sources) Chronic maxillary sinusitis; Translations: [Chronic maxillary sinusitis] Onset: 3 Chronic Other upper respiratory infections (1 source) Acute maxillary sinusitis, unspecified Episodic [place]uma-; endo-; and myocarditis; cardiomyopathy (except that caused by tuberculosis or sexually transmitted disease) (20 sources) Cardiomyopathy; Translations: [Other cardiomyopathies] Onset: 3 Resolved: 5 Chronic Comment on above: [facility] w/o obstructive coronary disease - 01/2023 [facility] w/ mild coronary disease - 01/2023 Residual codes; unclassified (20 sources) Obstructive sleep apnea syndrome; Translations: [Obstructive sleep apnea (adult) (pediatric)] Onset: 3 09-05-2023 Chronic Residual codes; unclassified (20 sources) Obstructive sleep apnea (adult) (pediatric); Translations: [Obstructive sleep apnea (adult)(pediatric)] Onset: Chronic Residual codes; unclassified (12 sources) Sleep apnea; Translations: [Sleep apnea, unspecified] 02-24-2023 Chronic Residual codes; unclassified (4 sources) Sleep apnea, unspecified; Translations: [Unspecified sleep apnea] 02-25-2023 Chronic Residual codes; unclassified (5 sources) Obstructive sleep apnea of adult; Translations: [Obstructive sleep apnea (adult)(pediatric)] Chronic Residual codes; unclassified (4 sources) Other specified health status; Translations: [Statin intolerance] 12-31-2024 Episodic Residual codes; unclassified (19 sources) Patient noncompliance - general; Translations: [Medically noncompliant] Onset: 5 Resolved: 5 11-30-2024 Episodic Spondylosis; intervertebral disc disorders; other back problems (20 sources) Lumbar spondylosis; Translations: [Spondylosis without myelopathy or radiculopathy, lumbar region] Chronic Spondylosis; intervertebral disc disorders; other back problems (17 sources) Neck pain; Translations: [Cervicalgia] 09-04-2024 Episodic Substance-related disorders (6 sources) Tobacco user; Translations: [Nicotine dependence, cigarettes, in remission] Chronic Unclassified (4 sources) Other persistent atrial fibrillation; Translations: [Other persistent atrial fibrillation (Multi)] Onset: 3 Unclassified (1 source) Preprocedural examination done 11-30-2024 Unclassified (3 sources) A [facility] screening has identified you as FRAIL or AT RISK FOR FRAILTY. This puts you at a higher risk for infection, illness, falls, and other injuries. Here are four ways to help you reduce your risk of frailty: 1. IDENTIFY EARLY SIGNS OF FRAILTY Discuss contributing factors and concerns with your doctor 2. BE ACTIVE Walking and light strengthening exercises will help reduce weakness 3. EAT WELL Aim for three healthy meals a day that are high in protein 4. THINK POSITIVE Keep your mind active by being sociable and continuing to learn References: Stay Strong: Four Ways to Beat the Frailty Risk [email or web address]/sta x-ubvdrf-loen-ways-to- bqgn-ijy-mde ilty-risk 12-25-2024 Unclassified (6 sources) You have been scheduled for a follow up appointment for the following date and time, please call to reschedule if needed. Unclassified (1 source) Patient's noncompliance with other medical treatment and regimen due to unspecified reason; Translations: [Patient's noncompliance with other medical treatment and regimen due to unspecified reason] Onset: 5 Past or Other Problems Problem Classification Problem Date Documented Date Episodic/Chronic Cardiac dysrhythmias (20 sources) Tachycardia, unspecified; Translations: [Sinus bradycardia] Onset: 01-30-2024 Resolved: 12-31-2024 Episodic Deficiency and other anemia (2 sources) Anemia, unspecified; Translations: [Anemia, unspecified] Onset: 06-22-2024 05-30-2024 Episodic Hepatitis (20 sources) Viral hepatitis C; Translations: [Hepatitis C] Onset: 09-30-2015 Episodic Other aftercare (5 sources) Other cuff presser (current) drug therapy; Translations: [[employer] QUAL[employer] TECHNICIAN CURRENT DRUG THERAPY] Onset: 03-02-2023 Episodic Other aftercare (20 sources) Treatment changed; Translations: [Other alf (current) drug therapy] Onset: 09-29-2023 Resolved: 12-31-2024 09-29-2023 Episodic Other aftercare (20 sources) Post-discharge follow-up; Translations: [Encounter for follow-up examination after completed treatment for conditions other than malignant neoplasm] Onset: 11-10-2023 Resolved: 12-31-2024 11-10-2023 Episodic Other circulatory disease (18 sources) H/O: atrial fibrillation; Translations: [Personal history of other diseases of the circulatory system] Onset: 11-30-2024 Resolved: 12-31-2024 11-30-2024 Episodic Other circulatory disease (2 sources) Personal history of other diseases of the circulatory system; Translations: [Personal history of other diseases of the circulatory system] Onset: 11-30-2024 Episodic Other connective tissue disease (20 sources) Non-traumatic partial tear of left rotator cuff; Translations: [Incomplete rotator cuff tear or rupture of left shoulder, not specified as traumatic] Onset: 04-05-2023 04-05-2023 Episodic Other infections; including parasitic (20 sources) Personal history of other infectious and parasitic diseases; Translations: [Personal history of COVID-19] Onset: 09-29-2023 Resolved: 12-31-2024 09-29-2023 Episodic Other lower respiratory disease (20 sources) Dyspnea; Translations: [Shortness of breath] Onset: 06-22-2023 Resolved: 12-31-2024 06-22-2023 Episodic Other lower respiratory disease (1 source) Shortness of breath; Translations: [Shortness of breath] Onset: 06-22-2023 Episodic Other nutritional; endocrine; and metabolic disorders (20 sources) Obesity; Translations: [Other obesity due to excess calories] Onset: 06-22-2023 Resolved: 09-29-2023 06-22-2023 Chronic Other nutritional; endocrine; and metabolic disorders (9 sources) Obese class I; Translations: [Obesity, unspecified] Onset: 09-29-2023 Resolved: 11-10-2023 09-29-2023 Chronic Other nutritional; endocrine; and metabolic disorders (14 sources) Overweight in adulthood with body mass index of 25 or more but less than 30; Translations: [Overweight] Onset: 06-22-2023 Resolved: 09-29-2023 06-22-2023 Episodic Other screening for suspected conditions (not mental disorders or infectious disease) (20 sources) Liver enzymes abnormal; Translations: [Elevated liver enzymes] Onset: 03-02-2023 Resolved: 12-31-2024 Episodic Other skin disorders (7 sources) Localized swelling, mass and lump, left lower limb; Translations: [Localized superficial swelling, mass, or lump] Onset: 12-25-2024 12-24-2024 Episodic Other upper respiratory disease (2 sources) Hypertrophy of nasal turbinates; Translations: [Hypertrophy of nasal turbinates] Onset: 04-04-2018 Episodic Residual codes; unclassified (4 sources) Other amnesia; Translations: [OTHER AMNESIA] Onset: 06-01-2022 Episodic Screening and history of mental health and substance abuse codes (20 sources) Ex-smoker; Translations: [Personal history of tobacco use] Onset: 06-22-2023 Resolved: 12-31-2024 06-22-2023 Episodic Comment on above: quit 2007; Unclassified (9 sources) Onset: 09-05-2023 Resolved: 05-10-2025 09-05-2023 Unclassified (1 source) Patient's noncompliance with other medical treatment and regimen due to unspecified reason; Translations: [Patient's noncompliance with other medical treatment and regimen due to unspecified reason] Onset: 05-10-2025 Viral infection (1 source) COVID-19 Results Test Name Value Interpretation Reference Range Facility Basic Metabolic Panelon 07 Anion gap [Moles/Vol] Not performed Normal 6.0-15.0 [facility] Comment on above: Performed By: #### B MP #### [address] Creatinine Clr Calc Pharmacy 97.89 Normal [facility] Comment on above: Result Comment: PERF ORMED BY: [place] [address] PATHOLOGIST [employer]FFER ALISSA HODGES M.D. Performed By: #### B MP #### [address] GFR/1.73 sq M.predicted MDRD (S/P/Bld) [Vol rate/Area] mL/min/{1.73_m2} Normal [facility] Comment on above: Performed By: #### B MP #### [address] Potassium Normal 3.5-5.1 [facility] Comment on above: Result Comment: Spec imen hemolyzed, redraw requested Performed By: #### B MP #### [address] Sodium Normal 136-145 [facility] Comment on above: Result Comment: Spec imen hemolyzed, redraw requested Performed By: #### B MP #### [address] Calcium [Mass/volume] in Ser um or PlasmaOrdered By: Adonay Mai on 04-17-2025 Calcium [Mass/Vol] 9.2 mg/dL 8.6-10.3 [facility] Comment on above: Performed By: #### B MP #### [address] Carbon dioxide, total [Moles /volume] in Serum or PlasmaOrdered By: Adonay Mai on 04-17-2025 CO2 [Moles/Vol] 25.9 mmol/L 21.0-31.0 [facility] Comment on above: Performed By: #### B MP #### [place] [address] [place] Chloride [Moles/volume] in S zina or PlasmaOrdered By: Adonay Mai on 04-17-2025 Chloride [Moles/Vol] 102 mmol/L 98-107 [facility] Comment on above: Performed By: #### B MP #### [address] Creatinine [Mass/volume] in Serum or PlasmaOrdered By: Adonay Mai on 04-17-2025 Creatinine [Mass/Vol] 0.74 mg/dL 0.70-1.30 [facility] Comment on above: Performed By: #### B MP #### [address] Glucose [Mass/volume] in Ser um or PlasmaOrdered By: Adonay Mai on 04-17-2025 Glucose [Mass/Vol] 127 mg/dL High 70-100 [facility] Comment on above: ADA recommended refe rence rangeRandom Glucose Reference Range is dependent on time and content of last meal. Glucose of more than 200 mg/dL in a nonstressed, ambulatory subject supports the diagnosis of Diabetes Mellitus. Result Comment: [place] om Glucose Reference Range is dependent on time and content of last meal. Glucose of more than 200 mg/dL in a nonstressed, ambulatory subject supports the diagnosis of Diabetes Mellitus. ADA recommended reference range Performed By: #### B MP #### [facility] [address] [place] [address] INR in Platelet poor plasma by Coagulation assayOrdered By: Mirna Aldridge on 04-17-2025 INR Coag (PPP) [Relative time] 1.2 {INR} [facility] Comment on above: INR Therapeutic Rang [...] with mechanical heart valves: 3 - 4.5 Order Comment: List the 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: COUMADIN/WARFARIN Result Comment: INR Therapeutic Range A) Pre- [...] heart valves: 3 - 4.5 PERFORMED BY: [place] [address] PATHOLOGIST [employer]FFER ALISSA HODGES M.D. Performed By: #### M G, BMP, CBC, HS TROP #### [facility] [address] [place] [address] No Panel InformationOrdered By: Adonay Mai on 04-17-2025 Estimated GFR (CKD-EPI) > 60.0 mL/Min [facility] Creatinine Clearance (Chem 97.89 [facility] Potassium [Moles/volume] in Serum or PlasmaOrdered By: Adonay Mai on 04-17-2025 Potassium [Moles/Vol] 3.9 mmol/L 3.5-5.1 [facility] Comment on above: Order Comment: HEMOL YZED Result Comment: PERF ORMED BY: [place] [address] PATHOLOGIST [employer] ALISSA HODGES M.D. Performed By: #### M G, BMP, CBC, HS TROP #### [facility] [address] Prothrombin time (PT)Ordered By: Mirna Aldridge on 04-17-2025 PT Coag (PPP) [Time] 13.6 s High 9.0-12.9 [facility] Comment on above: A hematocrit value g reater than 55% may lead to inaccurate results in coagulation testing. Patients having hematocrit values >55% require a special collection tube for coagulation studies. Please contact the laboratory at [phone] for redraw instructions. Order Comment: List the 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: COUMADIN/WARFARIN Result Comment: A he matocrit value greater than 55% may lead to inaccurate results in coagulation testing. Patients having hematocrit values >55% require a special collection tube for coagulation studies. Please contact the laboratory at [phone] for redraw instructions. Performed By: #### M G, BMP, CBC, HS TROP #### [facility] [address] [id number] [facility] Serum or plasma anion gap de terminationOrdered By: Adonay Mai on 04-17-2025 Anion gap [Moles/Vol] TNP [facility] Comment on above: Test not performed Sodium [Moles/volume] in Ser um or PlasmaOrdered By: Adonay Mai on 04-17-2025 Sodium [Moles/Vol] 136 mmol/L 136-145 [facility] Comment on above: Order Comment: HEMOL YZED Performed By: #### M G, BMP, CBC, HS TROP #### [facility] [address] [id number] [facility] Urea nitrogen [Mass/volume] in Serum or PlasmaOrdered By: Adonay Mai on 04-17-2025 Urea nitrogen [Mass/Vol] 24 mg/dL 04-26 [facility] Comment on above: Performed By: #### B MP #### [facility] [address] [id number] [facility] echo transthoracicon [facility] echo transthoracic [facility] [place] [address] [place], [place] [id number] Echocardiogram Signed Patient: Vick Mercado MR#: [id number] : 1955 Acct:[id number] Age/Sex: 70 / M ADM Date: 04/16/25 Loc: Room: [address] [place] [address] Type: ADM IN Attending Dr: Adonay Mai MD Ordering Provider: Mirna Aldridge APRN Date of Service: 04/16/25 ECH/ECH echo transthoracic: Shortness of Breath/Dyspnea Copies to: MD Mirna Lee, DIRECTOR OF AVIATION Ordering Physician: Mirna Aldridge Height: 70 in Weight: 216 lb Performed By: PAIGE Ellison BSA: 2.2 m2 BP: 135/75 mmHg HR: 89 Reason For Study: Shortness of Breath/Dyspnea History: Non-Ischemic Cardiomyopathy, CHF, JANETTE, Hepatitis C, HLD, A-Fib., HTN, Alcohol Use, Family History: Father - heart valve replaced Interpretation Summary Ejection Fraction = 40-45%. The left ventricle is mildly dilated. There is left ventricular diastolic dysfunction. Regional wall motion abnormalities cannot be excluded due to limited visualization. The left atrium appears severely dilated. There is mild tricuspid regurgitation. Right ventricular systolic pressure is elevated at 50-60mmHg. Compared to prior study, changes are noted. Marginally improved LV systolic function, compared to 10/22/2023. Procedure/Quality: A two-dimensional transthoracic echocardiogram with color flow, Doppler and injection of contrast agent Definity was performed. The study was technically suboptimal in quality due to poor acoustic windows . Left Ventricle: The left ventricular thickness is normal. The left ventricle is mildly dilated. Ejection Fraction = 40-45%. There is left ventricular diastolic dysfunction. Regional wall motion abnormalities cannot be excluded due to limited visualization. Left Atrium: The left atrium appears severely dilated. Right Atrium: The right atrium is not well visualized. Right Ventricle: The right ventricle is normal in size and function. Aortic Valve: The aortic valve is not well visualized. No hemodynamically significant valvular aortic stenosis. No aortic regurgitation is present. Mitral Valve: The mitral valve is not well visualized. No significant mitral valve stenosis. There is no mitral regurgitation noted. Tricuspid Valve: The tricuspid valve is not well visualized. There is mild tricuspid regurgitation. Right ventricular systolic pressure is elevated at 50-60mmHg. Pulmonic Valve: The pulmonic valve is not well visualized. Arteries: The aortic root is normal size. Pericardium/Pleura: No pericardial effusion seen. IVC/Hepatic Veins: The inferior vena cava is normal in size, with a normal collapsibility index. Measurements with Normals IVSd: 1.2 cm (0.7-1.1 cm)LVIDd: 5.9 cm (3.7-5.4 cm) LVPWd: 1.2 cm (0.7-1.1 cm)LVIDs: 4.9 cm (2.3-3.6 cm) LA dimension: 4.7 cm (2.3-4.0 cm)Ao root diam: 3.1 cm(2.0-3.6 cm) asc Aorta Diam: 3.2 cm(2.1-3.4cm) Doppler with Normals LV V1 max: 53.8 cm/sec (0.7-1.7m/s)MV E max lucius: 87.8 cm/sec(0.8-1.3m/s) MV A max lucius: 18.4 cm/sec(0.0-0.0m/s) MV E/A: 4.8 (<1.5) MMode/2D Measurements Calculations TAPSE: 2.5 cm FS: 15.5 % Ao root area: LVOT diam: 2.0 cm RV S Lucius: EDV(Teich): 7.4 cm2 LVOT area: 3.1 cm2 10.6 cm/sec 170.1 ml ESV(Teich): 115.2 ml EF(Teich): 32.3 % __ LVLd ap4: 9.0 cm SV(MOD-sp4): LAV(MOD-sp4): LA A2 area: 33.1 cm2 EDV(MOD-sp4): 97.0 ml 94.7 ml 189.0 ml LAV(MOD-sp2): LA A4 area: 29.3 cm2 LVLs ap4: 7.6 cm 129.0 ml LA length (vol): ESV(MOD-sp4): 7.3 cm 92.0 ml LA vol: 113.1 ml EF(MOD-sp4): 51.3 % LA vol index: 52.4 ml/m2 Doppler Measurements Calculations MV dec time: MV V2 max: E/E' lat: MV dec slope: 0.20 sec 87.3 cm/sec 6.8 MV max P.0 mmHg E/E' med: 437.4 cm/sec2 MV V2 mean: 17.2 37.1 cm/sec MV mean P.87 mmHg MV V2 VTI: 17.0 cm MVA(VTI): 1.8 cm2 __ Ao V2 max: LV V1 max P.4 cm/sec 1.2 mmHg Ao max P.2 mmHg LV V1 mean PG: Ao mean P.0 mmHg 0.60 mmHg Ao V2 mean: LV V1 mean: 95.4 cm/sec 36.0 cm/sec Ao V2 VTI: 24.9 cm LV V1 VTI: 10.1 cm SILVESTRE(I,D): 1.3 cm2 SILVESTRE(V,D): 1.3 cm2 Transcribed By: ROMANA Performed At: 04/16/25 1104 Signed By: Frederic Moya MD 04/16/25 1401 Normal [facility] Prothrombin Time INRon 04-16 INR Coag (PPP) [Relative time] 1.2 {INR} Normal [facility] Comment on above: Order Comment: List the 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: COUMADIN/WARFARIN Result Comment: INR Therapeutic Range A) Pre- [...] heart valves: 3 - 4.5 PERFORMED BY: [place] [address] PATHOLOGIST [employer] ALISSA HODGES M.D. Performed By: #### M G, BMP, CBC, HS TROP #### [address] PT Coag (PPP) [Time] 13.3 s High 9.0-12.9 [facility] Comment on above: Order Comment: List the 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: COUMADIN/WARFARIN Result Comment: A he matocrit value greater than 55% may lead to inaccurate results in coagulation testing. Patients having hematocrit values >55% require a special collection tube for coagulation studies. Please contact the laboratory at [phone] for redraw instructions. Performed By: #### M G, BMP, CBC, HS TROP #### [address] [id number] [place] Alanine aminotransferase [En zymatic activity/volume] in Serum or PlasmaOrdered By: PROVIDER TEMP on 04-15-2025 ALT [Catalytic activity/Vol] 14 U/L 7-52 [facility] Comment on above: Performed By: #### C K, HS TROP, CMP, CBC, BNP #### [facility] [address] [place], [place] [phone] [place] Albumin [Mass/volume] in Ser um or Plasma by Bromocresol green (BCG) dye binding methoOrdered By: PROVIDER TEMP on 04-15-2025 Albumin BCG dye [Mass/Vol] 4.7 g/dL 3.5-5.7 [facility] Alkaline phosphatase [Enzyma tic activity/volume] in Serum or PlasmaOrdered By: PROVIDER TEMP on 04-15-2025 ALP [Catalytic activity/Vol] 62 U/L 34-104 [facility] Comment on above: Performed By: #### C K, HS TROP, CMP, CBC, BNP #### [facility] [address] [place] [address] Aspartate aminotransferase [ Enzymatic activity/volume] in Serum or PlasmaOrdered By: PROVIDER TEMP on 04-15-2025 AST [Catalytic activity/Vol] 18 U/L 13-39 [facility] Comment on above: Performed By: #### C K, HS TROP, CMP, CBC, BNP #### [address] BNP ser/plasOrdered By: PROV IDER TEMP on 04-15-2025 Natriuretic peptide B (Bld) [Mass/Vol] 721.0 pg/mL High 5-100 [facility] Comment on above: Result Comment: PERF ORMED BY: [place] [address] PATHOLOGIST [employer] ALISSA HODGES M.D. Performed By: #### C K, HS TROP, CMP, CBC, BNP #### [address] Basophils [#/volume] in Bloo d by Automated countOrdered By: PROVIDER TEMP on 04-15-2025 Basophils (Bld) [#/Vol] 0.1 10*3/uL 0.0-0.2 [facility] Comment on above: Result Comment: PERF ORMED BY: [place] [address] PATHOLOGIST [employer] ALISSA HODGES M.D. Performed By: #### C K, HS TROP, CMP, CBC, BNP #### [address] Basophils/100 leukocytes in Blood by Automated countOrdered By: PROVIDER TEMP on 04-15-2025 Basophils/100 WBC (Bld) 0.7 % . [facility] Comment on above: Performed By: #### C K, HS TROP, CMP, CBC, BNP #### [address] Bilirubin.total [Mass/volume ] in Serum or PlasmaOrdered By: PROVIDER TEMP on 04-15-2025 Bilirubin [Mass/Vol] 0.6 mg/dL 0.3-1.0 [facility] Comment on above: Performed By: #### C K, HS TROP, CMP, CBC, BNP #### [address] Calcium [Mass/volume] in Ser um or PlasmaOrdered By: PROVIDER TEMP on 04-15-2025 Calcium [Mass/Vol] 9.9 mg/dL Normal 8.6-10.3 [facility] Comment on above: Performed By: #### C K, HS TROP, CMP, CBC, BNP #### [address] Carbon dioxide, total [Moles /volume] in Serum or PlasmaOrdered By: PROVIDER TEMP on 04-15-2025 CO2 [Moles/Vol] 28.4 mmol/L Normal 21.0-31.0 [facility] Comment on above: Performed By: #### C K, HS TROP, CMP, CBC, BNP #### [address] Chloride [Moles/volume] in S zina or PlasmaOrdered By: PROVIDER TEMP on 04-15-2025 Chloride [Moles/Vol] 101 mmol/L Normal 98-107 [facility] Comment on above: Performed By: #### C K, HS TROP, CMP, CBC, BNP #### [address] Complete Blood Count Auto Di ffon 04-15-2025 Mean Corpuscular HGB Conc 34.2 g/dL Normal 32.5-35.6 [facility] Comment on above: Performed By: #### C K, HS TROP, CMP, CBC, BNP #### [address] Monocytes/100 WBC (Bld) 18.36 % Normal 0.00-20.00 [facility] Comment on above: Performed By: #### C K, HS TROP, CMP, CBC, BNP #### [address] NRBC% 0.1 /100{WBC} Normal 0-0.5 [facility] Comment on above: Performed By: #### C K, HS TROP, CMP, CBC, BNP #### [address] White Blood Count 11.1 [CFU]/mL High 4.1-10.5 [facility] Comment on above: Performed By: #### C K, HS TROP, CMP, CBC, BNP #### [address] Comprehensive Metabolic Pane allan 04-15-2025 Albumin [Mass/Vol] 4.7 g/dL Normal 3.5-5.7 [facility] Comment on above: Performed By: #### C K, HS TROP, CMP, CBC, BNP #### [address] Creatinine Clr Calc Pharmacy 61.63 Normal [facility] Comment on above: Result Comment: PERF ORMED BY: [place] [address] PATHOLOGIST [employer] ALISSA HODGES M.D. Performed By: #### C K, HS TROP, CMP, CBC, BNP #### [address] GFR/1.73 sq M.predicted MDRD (S/P/Bld) [Vol rate/Area] mL/min/{1.73_m2} Normal [facility] Comment on above: Performed By: #### C K, HS TROP, CMP, CBC, BNP #### [address] Creatine kinase [Enzymatic a ctivity/volume] in Serum or PlasmaOrdered By: PROVIDER TEMP on 04-15-2025 CK [Catalytic activity/Vol] 53 U/L 30-223 [facility] Comment on above: Performed By: #### C K, HS TROP, CMP, CBC, BNP #### [address] Creatinine [Mass/volume] in Serum or PlasmaOrdered By: PROVIDER TEMP on 04-15-2025 Creatinine [Mass/Vol] 0.71 mg/dL Normal 0.70-1.30 [facility] Comment on above: Performed By: #### C K, HS TROP, CMP, CBC, BNP #### [address] ECG 12 lead ECGon 04-15-2025 ECG 12 lead ECG [facility] [place] [address] [place] [address] Electrocardiograph Report Signed Patient: Vick Mercado MR#: [id number] : 1955 Acct:[id number] Age/Sex: 70 / M ADM Date: 04/16/25 Loc: Room: [address] [place] [address] Type: ADM IN Attending Dr: Adonay Mai MD Ordering Provider: Hemanth Springer Jr, MD Date of Service: 04/15/25 ECG/ECG 12 lead ECG: Shortness of Breath/Dyspnea Copies to: Test Reason : Blood Pressure : */* mmHG Vent. Rate : 85 BPM Atrial Rate : 85 BPM P-R Int : 184 ms QRS Dur : 108 ms QT Int : 390 ms P-R-T Axes : 40 35 20 degrees QTcB Int : 464 ms Sinus rhythm with occasional premature ventricular complexes Otherwise normal ECG When compared with ECG of 24-Oct-2023 14:05, premature ventricular complexes are now present Nonspecific T wave abnormality, improved in Lateral leads Confirmed by Frederic Moya ([id number]) on 04/17/2025 8:57:21 AM Referred By: Electronically Signed By: Frederic Moya Transcribed By: MUS Signed By Frederic Moya MD 04/17/25 0857 Normal [facility] Eosinophils [#/volume] in Bl ood by Automated countOrdered By: PROVIDER TEMP on 04-15-2025 Eosinophils (Bld) [#/Vol] 0.3 10*3/uL 0.0-0.45 [facility] Comment on above: Performed By: #### C K, HS TROP, CMP, CBC, BNP #### [facility] [address] [place] [address] [place] Eosinophils/100 leukocytes i n Blood by Automated countOrdered By: PROVIDER TEMP on 04-15-2025 Eosinophils/100 WBC (Bld) 2.8 % . [facility] Comment on above: Performed By: #### C K, HS TROP, CMP, CBC, BNP #### [facility] [address] Erythrocyte distribution wid th [Ratio] by Automated countOrdered By: PROVIDER TEMP on 04-15-2025 Erythrocyte distribution width (RBC) [Ratio] 13.4 % 12.0-14.8 [facility] Comment on above: Performed By: #### C K, HS TROP, CMP, CBC, BNP #### [address] Erythrocytes [#/volume] in B lood by Automated countOrdered By: PROVIDER TEMP on 04-15-2025 RBC (Bld) [#/Vol] 4.85 10*6/uL 3.90-5.60 [facility] Comment on above: Performed By: #### C K, HS TROP, CMP, CBC, BNP #### [address] Glucose [Mass/volume] in Ser um or PlasmaOrdered By: PROVIDER TEMP on 04-15-2025 Glucose [Mass/Vol] 131 mg/dL High 70-100 [facility] Comment on above: ADA recommended refe rence rangeRandom Glucose Reference Range is dependent on time and content of last meal. Glucose of more than 200 mg/dL in a nonstressed, ambulatory subject supports the diagnosis of Diabetes Mellitus. Result Comment: [place] om Glucose Reference Range is dependent on time and content of last meal. Glucose of more than 200 mg/dL in a nonstressed, ambulatory subject supports the diagnosis of Diabetes Mellitus. ADA recommended reference range Performed By: #### C K, HS TROP, CMP, CBC, BNP #### [address] Hematocrit [Volume Fraction] of Blood by Automated countOrdered By: PROVIDER TEMP on 04-15-2025 Hematocrit (Bld) [Volume fraction] 43.6 % 38.8-50.0 [facility] Comment on above: Performed By: #### C K, HS TROP, CMP, CBC, BNP #### [facility] [address] Hemoglobin [Mass/volume] in BloodOrdered By: PROVIDER TEMP on 04-15-2025 Hemoglobin (Bld) [Mass/Vol] 14.9 g/dL 13.0-17.0 [facility] Comment on above: Performed By: #### C K, HS TROP, CMP, CBC, BNP #### [facility] [address] INR in Platelet poor plasma by Coagulation assayOrdered By: PROVIDER TEMP on 04-15-2025 INR Coag (PPP) [Relative time] 1.2 {INR} Normal [facility] Comment on above: INR Therapeutic Rang [...] valves: 3 - 4.5 Performed By: #### M G, BMP, CBC, HS TROP #### [facility] [address] Leukocytes [#/volume] correc rehan for nucleated erythrocytes in Blood by Automated counOrdered By: PROVIDER TEMP on 04-15-2025 WBC corrected for nucl RBC Auto (Bld) [#/Vol] 11.1 10*3/uL High 4.1-10.5 [facility] Leukocytes [#/volume] in Blo od by Automated countOrdered By: PROVIDER TEMP on 04-15-2025 WBC (Bld) [#/Vol] 11.1 10*3/uL High 4.1-10.5 [facility] Comment on above: Performed By: #### C K, HS TROP, CMP, CBC, BNP #### [address] Lymphocytes [#/volume] in Bl ood by Automated countOrdered By: PROVIDER TEMP on 04-15-2025 Lymphocytes (Bld) [#/Vol] 2.5 10*3/uL 1.00-4.8 [facility] Comment on above: Performed By: #### C K, HS TROP, CMP, CBC, BNP #### [address] Lymphocytes/100 leukocytes i n Blood by Automated countOrdered By: PROVIDER TEMP on 04-15-2025 Lymphocytes/100 WBC (Bld) 22.7 % . [facility] Comment on above: Performed By: #### C K, HS TROP, CMP, CBC, BNP #### [address] MCH [Entitic mass] by Automa rehan countOrdered By: PROVIDER TEMP on 04-15-2025 MCH (RBC) [Entitic mass] 30.7 pg 27.5-35.2 [facility] Comment on above: Performed By: #### C K, HS TROP, CMP, CBC, BNP #### [facility] [address] [place] [address] MCHC Auto (RBC) [Mass/Vol]Or dered By: PROVIDER TEMP on 04-15-2025 MCHC (RBC) [Mass/Vol] 34.2 g/dL 32.5-35.6 [facility] MCV [Entitic volume] by Auto mated countOrdered By: PROVIDER TEMP on 04-15-2025 MCV (RBC) [Entitic vol] 89.7 fL 83.5-101 [facility] Comment on above: Performed By: #### C K, HS TROP, CMP, CBC, BNP #### [facility] [address] [place] [address] [place] Monocyte distribution width [Entitic volume] in Blood by AutomatedOrdered By: PROVIDER TEMP on 04-15-2025 Monocyte distribution width Auto (Bld) [Entitic vol] 18.36 % 0.00-20.00 [facility] Monocytes [#/volume] in Bloo d by Automated countOrdered By: PROVIDER TEMP on 04-15-2025 Monocytes (Bld) [#/Vol] 1.0 10*3/uL High 0.0-0.8 [facility] Comment on above: Performed By: #### C K, HS TROP, CMP, CBC, BNP #### [facility] [address] [place] [address] [place] Monocytes/100 leukocytes in Blood by Automated countOrdered By: PROVIDER TEMP on 04-15-2025 Monocytes/100 WBC (Bld) 8.7 % . [facility] Comment on above: Performed By: #### C K, HS TROP, CMP, CBC, BNP #### [facility] [address] Neutrophils [#/volume] in Bl ood by Automated countOrdered By: PROVIDER TEMP on 04-15-2025 Neutrophils (Bld) [#/Vol] 7.2 10*3/uL 1.8-7.7 [facility] Comment on above: Performed By: #### C K, HS TROP, CMP, CBC, BNP #### [facility] [address] [place] [address] [place] Neutrophils/100 leukocytes i n Blood by Automated countOrdered By: PROVIDER TEMP on 04-15-2025 Neutrophils/100 WBC (Bld) 65.1 % . [facility] Comment on above: Performed By: #### C K, HS TROP, CMP, CBC, BNP #### [facility] [address] [place] [address] No Panel InformationOrdered By: PROVIDER TEMP on 04-15-2025 Estimated GFR (CKD-EPI) > 60.0 mL/Min [facility] Creatinine Clearance (Chem 61.63 [facility] Nucleated erythrocytes [Pres ence] in Blood by Automated countOrdered By: PROVIDER TEMP on 04-15-2025 Nucleated RBC Auto Ql (Bld) 0.1 /100{WBC} 0-0.5 [facility] Partial Thromboplastin Timeo n 04-15-2025 aPTT Coag (Bld) [Time] 30.5 s Normal 25.1-36.5 [facility] Comment on above: Result Comment: A he matocrit value greater than 55% may lead to inaccurate results in coagulation testing. Patients having hematocrit values >55% require a special collection tube for coagulation studies. Please contact the laboratory at [phone] for redraw instructions. PERFORMED BY: [place] [address] PATHOLOGIST [employer] ALISSA HODGES M.D. Performed By: #### M G, BMP, CBC, HS TROP #### [place] [address] [place] Platelet mean volume [Entiti c volume] in Blood by Automated countOrdered By: PROVIDER TEMP on 04-15-2025 Platelet mean volume (Bld) [Entitic vol] 8.1 fL 6.6-10.1 [facility] Comment on above: Performed By: #### C K, HS TROP, CMP, CBC, BNP #### [place] [address] [place] Platelets [#/volume] in Bloo d by Automated countOrdered By: PROVIDER TEMP on 04-15-2025 Platelets (Bld) [#/Vol] 259 10*3/uL 150-450 [facility] Comment on above: Performed By: #### C K, HS TROP, CMP, CBC, BNP #### [place] [address] [place] Potassium [Moles/volume] in Serum or PlasmaOrdered By: PROVIDER TEMP on 04-15-2025 Potassium [Moles/Vol] 4.0 mmol/L Normal 3.5-5.1 [facility] Comment on above: Performed By: #### C K, HS TROP, CMP, CBC, BNP #### [place] [address] [place] Protein [Mass/volume] in Ser um or PlasmaOrdered By: PROVIDER TEMP on 04-15-2025 Protein [Mass/Vol] 7.9 g/dL 6.4-8.9 [facility] Comment on above: Performed By: #### C K, HS TROP, CMP, CBC, BNP #### [address] Prothrombin time (PT)Ordered By: PROVIDER TEMP on 04-15-2025 PT Coag (PPP) [Time] 13.2 s High 9.0-12.9 [facility] Comment on above: A hematocrit value g reater than 55% may lead to inaccurate results in coagulation testing. Patients having hematocrit values >55% require a special collection tube for coagulation studies. Please contact the laboratory at [phone] for redraw instructions. Result Comment: A he matocrit value greater than 55% may lead to inaccurate results in coagulation testing. Patients having hematocrit values >55% require a special collection tube for coagulation studies. Please contact the laboratory at [phone] for redraw instructions. Performed By: #### M G, BMP, CBC, HS TROP #### [address] Serum globulin measurement b y calculation (mass/volume)Ordered By: PROVIDER TEMP on 04-15-2025 Globulin (S) [Mass/Vol] 3.2 g/dL [facility] Comment on above: Performed By: #### C K, HS TROP, CMP, CBC, BNP #### [address] Serum or plasma albumin/glob ulin mass ratioOrdered By: PROVIDER TEMP on 04-15-2025 Albumin/Globulin [Mass ratio] 1.5 {ratio} [facility] Comment on above: Performed By: #### C K, HS TROP, CMP, CBC, BNP #### [address] Serum or plasma anion gap de terminationOrdered By: PROVIDER TEMP on 04-15-2025 Anion gap [Moles/Vol] 11.6 mmol/L Normal 6.0-15.0 [facility] Comment on above: Performed By: #### C K, HS TROP, CMP, CBC, BNP #### [address] Sodium [Moles/volume] in Ser um or PlasmaOrdered By: PROVIDER TEMP on 04-15-2025 Sodium [Moles/Vol] 137 mmol/L Normal 136-145 [facility] Comment on above: Performed By: #### C K, HS TROP, CMP, CBC, BNP #### [address] Troponin I High Sensitivityo n 04-15-2025 Troponin I High Sensitivity 11 Normal 0-20 [facility] Comment on above: Result Comment: The Troponin units of report have been changed to meet the Chest Pain Accreditation requirement, element EC5.M1l2. Troponin units are changed from pg/ml to ng/L. Also, the decimal is removed and results are in whole numbers. PERFORMED BY: [place] [address] PATHOLOGIST [employer] ALISSA HODGES M.D. Performed By: #### C K, HS TROP, CMP, CBC, BNP #### [address] Troponin I.cardiac [Mass/vol ume] in Serum or Plasma by Detection limit <= 0.01 ng/mLOrdered By: PROVIDER TEMP on 04-15-2025 Troponin I.cardiac DL <= 0.01 ng/mL [Mass/Vol] 11 ng/L 0-20 [facility] Comment on above: The Troponin units o f report have been changed to meet the Chest Pain Accreditation requirement, element EC5.M1l2. Troponin units are changed from pg/ml to ng/L. Also, the decimal is removed and results are in whole numbers. Urea nitrogen [Mass/volume] in Serum or PlasmaOrdered By: PROVIDER TEMP on 04-15-2025 Urea nitrogen [Mass/Vol] 13 mg/dL Normal 7-25 [facility] Comment on above: Performed By: #### C K, HS TROP, CMP, CBC, BNP #### [place] [address] [place] X-ray reportOrdered By: Irineo Hernandez on 04-15-2025 Study report [facility] Main [place] [id number] XRay Report Signed Patient: Vick Mercado MR#: [id number] : 1955 Acct:[id number] Age/Sex: 70 / M ADM Date: 5 Loc: ER Room: Type: PRE ER Attending Dr: Copies to: DONNA PROVIDER~ Ordering Provider: YUE THOMPSON Date of Service: 04/15/25 XR/XR chest 2V*: Shortness of Breath/Dyspnea XR chest 2V* 04/15/2025 7:20 PM SIGNS AND SYMPTOMS: ^Shortness of Breath/Dyspnea PROTOCOL: Frontal and lateral radiographs of the chest COMPARISON: 12/24/2024 FINDINGS: The trachea is midline. There is cardiomegaly. Atherosclerotic changes are present in the thoracic aorta. Mild bibasilar airspace opacities are noted possibly representing atelectasis. The bony thorax is intact. Postoperative changes are noted in the left shoulder. Degenerative changes are noted in the thoracic spine. XR/XR chest 2V* IMPRESSION: Similar mild cardiomegaly. Mild bibasilar airspace opacities are noted possibly representing atelectasis. Impression dictated by: Irineo Hernandez M.D. 04/15/2025 7:28 PM Dictation Location: [place] [address] Transcribed By: [facility] 04/15/251927 Dictated By: Irineo Hernandez II, MD 04/15/251925 Signed By: 04/15/251927 [facility] Work Phone: XR chest 2V*on 04-15-2025 XR chest 2V* [facility] Main [place] [id number] XRay Report Signed Patient: Vick Mercado MR#: [id number] : 1955 Acct:[id number] Age/Sex: 70 / M ADM Date: 04/15/25 Loc: ER Room: Type: PRE ER Attending Dr: Copies to: YUE THOMPSON Ordering Provider: YUE THOMPSON Date of Service: 04/15/25 XR/XR chest 2V*: Shortness of Breath/Dyspnea XR chest 2V* 04/15/2025 7:20 PM SIGNS AND SYMPTOMS: Shortness of Breath/Dyspnea PROTOCOL: Frontal and lateral radiographs of the chest COMPARISON: 12/24/2024 FINDINGS: The trachea is midline. There is cardiomegaly. Atherosclerotic changes are present in the thoracic aorta. Mild bibasilar airspace opacities are noted possibly representing atelectasis. The bony thorax is intact. Postoperative changes are noted in the left shoulder. Degenerative changes are noted in the thoracic spine. XR/XR chest 2V* IMPRESSION: Similar mild cardiomegaly. Mild bibasilar airspace opacities are noted possibly representing atelectasis. Impression dictated by: Irineo Hernandez M.D. 04/15/2025 7:28 PM Dictation Location: [place] [address] Transcribed By: [facility] 04/15/251927 Dictated By: Irineo Hernandez II, MD 04/15/251925 Signed By: 04/15/251927 Normal [facility] aPTT in Platelet poor plasma by Coagulation assayOrdered By: YUE THOMPSON on 04-15-2025 aPTT Coag (PPP) [Time] 30.5 s 25.1-36.5 [facility] Comment on above: A hematocrit value g reater than 55% may lead to inaccurate results in coagulation testing. Patients having hematocrit values >55% require a special collection tube for coagulation studies. Please contact the laboratory at [phone] for redraw instructions. PATHOLOGY REQUEST FOR LAB CO RPon 02-19-2025 PATHOLOGY REQUEST FOR LAB [facility] Comment on above: See report. Scanned copy available in EMR. NASAL CARTILAGE [facility] No Panel InformationOrdered By: Jairo Wild on 02-13-2025 Miscellaneous Pathology Test See comment [facility] Comment on above: See report. Scanned copy available in EMR. Pathology Request for Lab Co rpon 02-13-2025 Pathology Request for Lab Richard Normal [facility] Comment on above: Order Comment: NASAL CARTILAGE Result Comment: See report. Scanned copy available in EMR. PERFORMED BY: [place] [address] PATHOLOGIST [employer]FFER TAMICA SÁNCHEZ M.D. Performed By: #### M G, BMP, CBC, HS TROP #### [address] Basic Metabolic Panelon 12-02 Anion gap [Moles/Vol] 14.4 mmol/L Normal 6.0-15.0 [facility] Comment on above: Performed By: #### M G, BMP, CBC, HS TROP #### [address] Calcium [Mass/Vol] 9.4 mg/dL Normal 8.6-10.3 [facility] Comment on above: Performed By: #### M G, BMP, CBC, HS TROP #### [address] Chloride [Moles/Vol] 95 mmol/L Low 98-107 [facility] Comment on above: Performed By: #### M G, BMP, CBC, HS TROP #### [address] CO2 [Moles/Vol] 23.7 mmol/L Normal 21.0-31.0 [facility] Comment on above: Performed By: #### M G, BMP, CBC, HS TROP #### [address] Creatinine [Mass/Vol] 0.70 mg/dL Normal 0.70-1.30 [facility] Comment on above: Performed By: #### M G, BMP, CBC, HS TROP #### [address] Creatinine Clr Calc Pharmacy 101.57 Normal [facility] Comment on above: Performed By: #### M G, BMP, CBC, HS TROP #### [place] [address] [place] GFR/1.73 sq M.predicted MDRD (S/P/Bld) [Vol rate/Area] mL/min/{1.73_m2} Normal [facility] Comment on above: Performed By: #### M G, BMP, CBC, HS TROP #### [facility] [address] [place] [address] [place] Glucose [Mass/Vol] 252 mg/dL High 70-100 [facility] Comment on above: Result Comment: [facility] Glucose Reference Range is dependent on time and content of last meal. Glucose of more than 200 mg/dL in a nonstressed, ambulatory subject supports the diagnosis of Diabetes Mellitus. ADA recommended reference range Performed By: #### M G, BMP, CBC, HS TROP #### [facility] [address] Potassium [Moles/Vol] 4.1 mmol/L Normal 3.5-5.1 [facility] Comment on above: Result Comment: Hemo lysis is present at a level that could interfere with the result. Contact lab if redraw is required Performed By: #### M G, BMP, CBC, HS TROP #### [facility] [address] [place] [address] [place] Sodium [Moles/Vol] 129 mmol/L Low 136-145 [facility] Comment on above: Performed By: #### Dung G, BMP, CBC, HS TROP #### [facility] [address] [place] [id number] [place] Urea nitrogen [Mass/Vol] 11 mg/dL Normal 7-25 [facility] Comment on above: Performed By: #### M G, BMP, CBC, HS TROP #### [facility] [address] [place] [address] [place] Basophils Auto (Bld) [#/Vol] Ordered By: Mirna Aldridge on 12-25-2024 Basophils (Bld) [#/Vol] Automated basophil count 0.0-0.2 [facility] Basophils/100 WBC Auto (Bld) Ordered By: Mirna Aldridge on 12-25-2024 Basophils/100 WBC (Bld) Automated basophil % . [facility] Calcium [Mass/volume] in Ser um or PlasmaOrdered By: Mirna Aldridge on 12-25-2024 Calcium [Mass/Vol] Calcium [Mass/volume ] in Serum or Plasma 8.6-10.3 [facility] Carbon dioxide, total [Moles /volume] in Serum or PlasmaOrdered By: Mirna Aldridge on 12-25-2024 CO2 [Moles/Vol] Carbon dioxide, tota l [Moles/volume] in Serum or Plasma 21.0-31.0 [facility] Chloride [Moles/volume] in S zina or PlasmaOrdered By: Mirna Aldridge on 12-25-2024 Chloride [Moles/Vol] Chloride [Moles/vol ume] in Serum or Plasma Low 98-107 [facility] Complete Blood Count Auto Di ffon 12-25-2024 Basophils (Bld) [#/Vol] 0.1 10*3/uL Normal 0.0-0.2 [facility] Comment on above: Result Comment: PERF ORMED BY: [facility] [address] [place] [address] PATHOLOGIST [employer] TAMICA SÁNCHEZ M.D. Performed By: #### M G, BMP, CBC, HS TROP #### [facility] [address] Basophils/100 WBC (Bld) 0.5 % Normal . [facility] Comment on above: Performed By: #### M G, BMP, CBC, HS TROP #### [facility] [address] [place] [address] [place] Eosinophils (Bld) [#/Vol] 0.1 10*3/uL Normal 0.0-0.45 [facility] Comment on above: Performed By: #### M G, BMP, CBC, HS TROP #### [facility] [address] [place] [address] [place] Eosinophils/100 WBC (Bld) 0.8 % Normal . [facility] Comment on above: Performed By: #### M G, BMP, CBC, HS TROP #### [facility] [address] Erythrocyte distribution width (RBC) [Ratio] 13.3 % Normal 12.0-14.8 [facility] Comment on above: Performed By: #### M G, BMP, CBC, HS TROP #### [address] Hematocrit (Bld) [Volume fraction] 40.8 % Normal 38.8-50.0 [facility] Comment on above: Performed By: #### M G, BMP, CBC, HS TROP #### [address] Hemoglobin (Bld) [Mass/Vol] 13.9 g/dL Normal 13.0-17.0 [facility] Comment on above: Performed By: #### M G, BMP, CBC, HS TROP #### [address] Lymphocytes (Bld) [#/Vol] 1.5 10*3/uL Normal 1.00-4.8 [facility] Comment on above: Performed By: #### M G, BMP, CBC, HS TROP #### [address] Lymphocytes/100 WBC (Bld) 9.4 % Normal . [facility] Comment on above: Performed By: #### M G, BMP, CBC, HS TROP #### [address] MCH (RBC) [Entitic mass] 30.5 pg Normal 27.5-35.2 [facility] Comment on above: Performed By: #### M G, BMP, CBC, HS TROP #### [address] MCV (RBC) [Entitic vol] 89.5 fL Normal 83.5-101 [facility] Comment on above: Performed By: #### M G, BMP, CBC, HS TROP #### [address] Mean Corpuscular HGB Conc 34.0 g/dL Normal 32.5-35.6 [facility] Comment on above: Performed By: #### M G, BMP, CBC, HS TROP #### [facility] [address] [place] [address] [place] Monocytes (Bld) [#/Vol] 1.4 10*3/uL High 0.0-0.8 [facility] Comment on above: Performed By: #### M G, BMP, CBC, HS TROP #### [facility] [address] [place] [address] [place] Monocytes/100 WBC (Bld) 8.5 % Normal . [facility] Comment on above: Performed By: #### M G, BMP, CBC, HS TROP #### [facility] [address] [place] [address] Neutrophils (Bld) [#/Vol] 13.2 10*3/uL High 1.8-7.7 [facility] Comment on above: Performed By: #### M G, BMP, CBC, HS TROP #### [facility] [address] [place] [address] [place] Neutrophils/100 WBC (Bld) 80.8 % Normal . [facility] Comment on above: Performed By: #### M G, BMP, CBC, HS TROP #### [facility] [address] [place] [address] [place] NRBC% 0.1 /100{WBC} Normal 0-0.5 [facility] Comment on above: Performed By: #### M G, BMP, CBC, HS TROP #### [facility] [address] [place] [address] [place] Platelet mean volume (Bld) [Entitic vol] 8.5 fL Normal 6.6-10.1 [facility] Comment on above: Performed By: #### M G, BMP, CBC, HS TROP #### [facility] [address] [place] [address] [place] Platelets (Bld) [#/Vol] 265 10*3/uL Normal 150-450 [facility] Comment on above: Performed By: #### M G, BMP, CBC, HS TROP #### [facility] [address] [place] [address] [place] RBC (Bld) [#/Vol] 4.56 10*6/uL Normal 3.90-5.60 [facility] Comment on above: Performed By: #### M G, BMP, CBC, HS TROP #### [facility] [address] WBC (Bld) [#/Vol] 16.3 10*3/uL High 4.1-10.5 [facility] Comment on above: Performed By: #### M G, BMP, CBC, HS TROP #### [facility] [address] Creatinine [Mass/volume] in Serum or PlasmaOrdered By: Mirna Aldridge on 12-25-2024 Creatinine [Mass/Vol] Creatinine [Mass/v olume] in Serum or Plasma 0.70-1.30 [facility] Eosinophils Auto (Bld) [#/Vo l]Ordered By: Mirna Aldridge on 12-25-2024 Eosinophils (Bld) [#/Vol] Automated eosinophil count 0.0-0.45 [facility] Eosinophils/100 WBC Auto (Bl d)Ordered By: Mirna Aldridge on 12-25-2024 Eosinophils/100 WBC (Bld) Automated eosinophil % . [facility] Erythrocyte distribution wid th Auto (RBC) [Ratio]Ordered By: Mirna Aldridge on 12-25-2024 Erythrocyte distribution width (RBC) [Ratio] Erythrocyte distribution width [Ratio] by Automated count 12.0-14.8 [facility] Glucose [Mass/volume] in Ser um or PlasmaOrdered By: Mirna Aldridge on 12-25-2024 Glucose [Mass/Vol] Glucose [Mass/volume ] in Serum or Plasma High 70-100 [facility] Comment on above: ADA recommended refe rence rangeRandom Glucose Reference Range is dependent on time and content of last meal. Glucose of more than 200 mg/dL in a nonstressed, ambulatory subject supports the diagnosis of Diabetes Mellitus. Hematocrit Auto (Bld) [Volum e fraction]Ordered By: Mirna Aldridge on 12-25-2024 Hematocrit (Bld) [Volume fraction] Hematocrit [Volume Fraction] of Blood by Automated count 38.8-50.0 [facility] Hemoglobin [Mass/volume] in BloodOrdered By: Mirna Aldridge on 12-25-2024 Hemoglobin (Bld) [Mass/Vol] Hemoglobin [Mass/volume] in Blood 13.0-17.0 [facility] INR in Platelet poor plasma by Coagulation assayOrdered By: Mirna Aldridge on 12-25-2024 INR Coag (PPP) [Relative time] INR in Platelet poor plasma by Coagulation assay [facility] Comment on above: INR Therapeutic Rang [...] with mechanical heart valves: 3 - 4.5 Leukocytes [#/volume] correc rehan for nucleated erythrocytes in Blood by Automated counOrdered By: Mirna Aldridge on 12-25-2024 WBC corrected for nucl RBC Auto (Bld) [#/Vol] Leukocytes [#/volume] corrected for nucleated erythrocytes in Blood by Automated coun High 4.1-10.5 [facility] Lymphocytes Auto (Bld) [#/Vo l]Ordered By: Mirna Aldridge on 12-25-2024 Lymphocytes (Bld) [#/Vol] Lymphocytes [#/volume] in Blood by Automated count 1.00-4.8 [facility] Lymphocytes/100 WBC Auto (Bl d)Ordered By: Mirna Aldridge on 12-25-2024 Lymphocytes/100 WBC (Bld) Lymphocytes/100 leukocytes in Blood by Automated count . [facility] MCH Auto (RBC) [Entitic mass ]Ordered By: Mirna Aldridge on 12-25-2024 MCH (RBC) [Entitic mass] MCH [Entitic mass] by Automated count 27.5-35.2 [facility] MCHC Auto (RBC) [Mass/Vol]Or dered By: Mirna Aldridge on 12-25-2024 MCHC (RBC) [Mass/Vol] MCHC [Mass/volume] by Automated count 32.5-35.6 [facility] MCV Auto (RBC) [Entitic vol] Ordered By: Mirna Aldridge on 12-25-2024 MCV (RBC) [Entitic vol] MCV [Entitic volume] by Automated count 83.5-101 [facility] Magnesiumon 12-25-2024 Magnesium [Mass/Vol] 2.0 mg/dL Normal 1.9-2.7 [facility] Comment on above: Result Comment: PERF ORMED BY: [facility] [address] [facility] [place] [address] PATHOLOGIST [employer] AND [employer]FFER TAMICA SÁNCHEZ M.D. Performed By: #### M G, BMP, CBC, HS TROP #### [facility] [address] Magnesium [Mass/volume] in S zina or PlasmaOrdered By: Mirna Aldridge on 12-25-2024 Magnesium [Mass/Vol] Magnesium [Mass/vol ume] in Serum or Plasma 1.9-2.7 [facility] Monocytes Auto (Bld) [#/Vol] Ordered By: Mirna Aldridge on 12-25-2024 Monocytes (Bld) [#/Vol] Automated blood monocyte count High 0.0-0.8 [facility] Monocytes/100 WBC Auto (Bld) Ordered By: Mirna Aldridge on 12-25-2024 Monocytes/100 WBC (Bld) Automated monocyte % . [facility] Neutrophils Auto (Bld) [#/Vo l]Ordered By: Mirna Aldridge on 12-25-2024 Neutrophils (Bld) [#/Vol] Neutrophils [#/volume] in Blood by Automated count High 1.8-7.7 [facility] Neutrophils/100 WBC Auto (Bl d)Ordered By: Mirna Aldridge on 12-25-2024 Neutrophils/100 WBC (Bld) Automated neutrophil % . [facility] No Panel InformationOrdered By: Mirna Aldridge on 12-25-2024 Estimated GFR (CKD-EPI) > 60.0 mL/Min [facility] Creatinine Clearance (Chem 101.57 [facility] Nucleated erythrocytes [Pres ence] in Blood by Automated countOrdered By: Mirna Aldridge on 12-25-2024 Nucleated RBC Auto Ql (Bld) Nucleated erythrocytes [Presence] in Blood by Automated count 0-0.5 [facility] Platelet mean volume Auto (B ld) [Entitic vol]Ordered By: Mirna Aldridge on 12-25-2024 Platelet mean volume (Bld) [Entitic vol] Platelet mean volume [Entitic volume] in Blood by Automated count 6.6-10.1 [facility] Platelets Auto (Bld) [#/Vol] Ordered By: Mirna Aldridge on 12-25-2024 Platelets (Bld) [#/Vol] Platelets [#/volume] in Blood by Automated count 150-450 [facility] Potassium [Moles/volume] in Serum or PlasmaOrdered By: Mirna Aldridge on 12-25-2024 Potassium [Moles/Vol] Potassium [Moles/v olume] in Serum or Plasma 3.5-5.1 [facility] Comment on above: Hemolysis is present at a level that could interfere with the result.Contact lab if redraw is required Prothrombin Time INRon 12-25 INR Coag (PPP) [Relative time] 1.1 {INR} Normal [facility] Comment on above: Result [...] heart valves: 3 - 4.5 PERFORMED BY: [address] [address] PATHOLOGIST [employer] AND BUFFER TAMICA SÁNCHEZ M.D. Performed By: #### M G, BMP, CBC, HS TROP #### [facility] [address] [place] [address] [facility] PT Coag (PPP) [Time] 13.0 s High 9.0-12.9 [facility] Comment on above: Result Comment: A he matocrit value greater than 55% may lead to inaccurate results in coagulation testing. Patients having hematocrit values >55% require a special collection tube for coagulation studies. Please contact the laboratory at [phone] for redraw instructions. Performed By: #### M G, BMP, CBC, HS TROP #### [facility] [address] [place] [address] [facility] Prothrombin time (PT)Ordered By: Mirna Aldridge on 12-25-2024 PT Coag (PPP) [Time] Prothrombin time (PT) High 9.0- 12.9 [facility] Comment on above: A hematocrit value g reater than 55% may lead to inaccurate results in coagulation testing. Patients having hematocrit values >55% require a special collection tube for coagulation studies. Please contact the laboratory at [phone] for redraw instructions. RBC Auto (Bld) [#/Vol]Ordere d By: Mirna Aldridge on 12-25-2024 RBC (Bld) [#/Vol] Erythrocytes [#/volu me] in Blood by Automated count 3.90-5.60 [facility] Serum or plasma anion gap de terminationOrdered By: Mirna Aldridge on 12-25-2024 Anion gap [Moles/Vol] Serum or plasma an ion gap determination 6.0-15.0 [facility] Sodium [Moles/volume] in Ser um or PlasmaOrdered By: Mirna Aldridge on 12-25-2024 Sodium [Moles/Vol] Sodium [Moles/volume ] in Serum or Plasma Low 136-145 [facility] Troponin I High Sensitivityo n 12-25-2024 Troponin I High Sensitivity 65 Off scale high 0-20 [facility] Comment on above: Result Comment: Crit ical Result : Called to and read back by: PEDRO SCHERER at: 12/25/2024 11:56:19 by:CONCEPCION The Troponin units of report have been changed to meet the Chest Pain Accreditation requirement, element EC5.M1l2. Troponin units are changed from pg/ml to ng/L. Also, the decimal is removed and results are in whole numbers. PERFORMED BY: [place] [address] PATHOLOGIST [employer] AND [employer]FFER TAMICA SÁNCHEZ M.D. Performed By: #### M G, BMP, CBC, HS TROP #### [address] Troponin I High Sensitivity 42 High 0-20 [facility] Comment on above: Result Comment: The Troponin units of report have been changed to meet the Chest Pain Accreditation requirement, element EC5.M1l2. Troponin units are changed from pg/ml to ng/L. Also, the decimal is removed and results are in whole numbers. PERFORMED BY: [facility] [address] [place] [address] PATHOLOGIST POL[employer]ER AND BUFFER TAMICA SÁNCHEZ M.D. Performed By: #### M G, BMP, CBC, HS TROP #### [facility] [address] Troponin I.cardiac [Mass/vol ume] in Serum or Plasma by Detection limit <= 0.01 ng/Ordered By: Mirna Aldridge on 12-25-2024 Troponin I.cardiac DL <= 0.01 ng/mL [Mass/Vol] Troponin I.cardiac [Mass/volume] in Serum or Plasma by Detection limit <= 0.01 ng/ Critically high 0-20 [facility] Comment on above: Critical Result : Ca lled to and read back by: PEDRO SCHERER at: 12/25/2024 11:56:19 by:CONCEPCIONThe Troponin units of report have been changed to meet the Chest Pain Accreditation requirement, element EC5.M1l2. Troponin units are changed from pg/ml to ng/L. Also, the decimal is removed and results are in whole numbers. Urea nitrogen [Mass/volume] in Serum or PlasmaOrdered By: Mirna Aldridge on 12-25-2024 Urea nitrogen [Mass/Vol] Urea nitrogen [Mass/volume] in Serum or Plasma 04-26 [facility] WBC Auto (Bld) [#/Vol]Ordere d By: Mirna Aldridge on 12-25-2024 WBC (Bld) [#/Vol] Leukocytes [#/volume ] in Blood by Automated count High 4.1-10.5 [facility] Basophils Auto (Bld) [#/Vol] on 12-24-2024 Basophils (Bld) [#/Vol] Automated basophil count 0.0-0.1 [facility] Basophils/100 WBC Auto (Bld) on 12-24-2024 Basophils/100 WBC (Bld) Automated basophil % 0.2-2.0 [facility] Eosinophils/100 WBC Auto (Bl d)on 12-24-2024 Eosinophils/100 WBC (Bld) Automated eosinophil % 0.9-7.0 [facility] Erythrocyte distribution wid th Auto (RBC) [Ratio]on 12-24-2024 Erythrocyte distribution width (RBC) [Ratio] Erythrocyte distribution width [Ratio] by Automated count 11.0-15.0 [facility] Estimated glomerular filtrat ion rate (GFR) non- Americanon 12-24-2024 GFR/1.73 sq M.predicted among non-blacks MDRD (S/P/Bld) [Vol rate/Area] Estimated glomerular filtration rate (GFR) non- >=60 mL/min/1.7 3m 2 [facility] Hematocrit Auto (Bld) [Volum e fraction]on 12-24-2024 Hematocrit (Bld) [Volume fraction] Hematocrit [Volume Fraction] of Blood by Automated count Low 42.0-54.0 [facility] Hemoglobin [Mass/volume] in Bloodon 12-24-2024 Hemoglobin (Bld) [Mass/Vol] Hemoglobin [Mass/volume] in Blood Low 14.0-18.0 [facility] INR in Platelet poor plasma by Coagulation assayon 12-24-2024 INR Coag (PPP) [Relative time] INR in Platelet poor plasma by Coagulation assay [facility] Comment on above: DESIRED INR:2.0-3.0 CONDITIONS NOT LISTED BELOW2.5-3.5 FOR PROSTHETIC HEART VALVE REPLACEMENT2.5-3.5 RECURRENT THROMBOSIS Laboratory - Chemistry and C hemistry - challengeon 12-24-2024 Calcium [Mass/Vol] 9.3 mg/dL 8.5-10.1 [facility] Chloride [Moles/Vol] 101 mmol/L 98-107 [facility] CO2 [Moles/Vol] 27.4 mmol/L 21.0-32.0 [facility] Creatinine [Mass/Vol] 0.91 mg/dL 0.70-1.30 [facility] GFR/1.73 sq M.predicted MDRD (S/P/Bld) [Vol rate/Area] mL/min/{1.73_m2} >=60 mL/min/1.7 3m 2 [facility] Glucose [Mass/Vol] 138 mg/dL High 74-106 [facility] Potassium [Moles/Vol] 3.9 mmol/L 3.5-5.1 [facility] Sodium [Moles/Vol] 137 mmol/L 136-145 [facility] Urea nitrogen [Mass/Vol] 13.0 mg/dL 7.0-18.0 [facility] Urea nitrogen/Creatinine [Mass ratio] 14.3 mg/mg [facility] Laboratory - Hematology and Cell countson 12-24-2024 Immature granulocytes/100 WBC (Bld) 0.2 % 0.0-0.5 [facility] Leukocytes [#/volume] correc rehan for nucleated erythrocytes in Blood by Automated counon 12-24-2024 WBC corrected for nucl RBC Auto (Bld) [#/Vol] Leukocytes [#/volume] corrected for nucleated erythrocytes in Blood by Automated coun High 4.0-11.0 [facility] Lymphocytes Auto (Bld) [#/Vo l]on 12-24-2024 Lymphocytes (Bld) [#/Vol] Lymphocytes [#/volume] in Blood by Automated count 1.2-3.8 [facility] Lymphocytes/100 WBC Auto (Bl d)on 12-24-2024 Lymphocytes/100 WBC (Bld) Lymphocytes/100 leukocytes in Blood by Automated count 20.5-60.0 [facility] MCH Auto (RBC) [Entitic mass ]on 12-24-2024 MCH (RBC) [Entitic mass] MCH [Entitic mass] by Automated count 25.9-34.0 [facility] MCHC Auto (RBC) [Mass/Vol]on 12-24-2024 MCHC (RBC) [Mass/Vol] MCHC [Mass/volume] by Automated count 29.9-35.2 [facility] MCV Auto (RBC) [Entitic vol] on 12-24-2024 MCV (RBC) [Entitic vol] MCV [Entitic volume] by Automated count 80.0-94.0 [facility] Monocytes Auto (Bld) [#/Vol] on 12-24-2024 Monocytes (Bld) [#/Vol] Automated blood monocyte count High 0.3-0.8 [facility] Monocytes/100 WBC Auto (Bld) on 12-24-2024 Monocytes/100 WBC (Bld) Automated monocyte % 1.7-12.0 [facility] Neutrophils Auto (Bld) [#/Vo l]on 12-24-2024 Neutrophils (Bld) [#/Vol] Neutrophils [#/volume] in Blood by Automated count High 1.4-6.5 [facility] Neutrophils/100 WBC Auto (Bl d)on 12-24-2024 Neutrophils/100 WBC (Bld) Automated neutrophil % 43.0-75.0 [facility] No Panel Informationon 12-24 Troponin I High Sensitivity 88.9 pg/mL Critically high 4.0-76.1 [facility] Comment on above: RESULTS CALLED TO DR Brandon MCKEON-OFF POINTS HAVE BEEN ESTABLISHED BASED ON THE FOURTHIVERS DEFINITION OF MYOCARDIAL INFARCTION. THE UPPERREFERENCE LIMIT (URL) OF TROPONIN, DEFINED THE 99THPERCENTILE OF cTnI DISTRIBUTION IN A REFERENCE POPULATION,HAS BEEN CONFIRMED THE DECISION THRESHOLD FOR MIDIAGNOSIS.99TH PERCENTILE = 76.2 PG/MLNOTE: HIGH-SENSITIVITY TROPONIN ASSAY IS NOT INTENDED TO BEUSED IN ISOLATION BUT SHOULD BE INTERPRETED IN CONJUNCTIONWITH OTHER DIAGNOSTIC AND CLINICAL INFORMATION. Eosinophils # (Auto) 0.3 10 3/uL 0.0-0.7 [facility] Immature Granulocyte # (Auto) 0.02 10 3/uL 0.00-0.03 [facility] Platelet mean volume Auto (B ld) [Entitic vol]on 12-24-2024 Platelet mean volume (Bld) [Entitic vol] Platelet mean volume [Entitic volume] in Blood by Automated count 9.5-13.5 [facility] Platelets Auto (Bld) [#/Vol] on 12-24-2024 Platelets (Bld) [#/Vol] Platelets [#/volume] in Blood by Automated count 150-450 [facility] Prothrombin time (PT)on 12-02 PT Coag (PPP) [Time] Prothrombin time (PT) 9.0- 11.6 [facility] RBC Auto (Bld) [#/Vol]on RBC (Bld) [#/Vol] Erythrocytes [#/volu me] in Blood by Automated count Low 4.70-6.10 [facility] Serum or plasma anion gap de terminationon 12-24-2024 Anion gap [Moles/Vol] Serum or plasma an ion gap determination [facility] ECG 12 Leadon 11-30-2024 Normal sinus rhythm at 66 bpm, first-degree AV block OR interval 206 ms, inferior lateral ST-T abnormality cannot exclude inferior myocardial infarction compared to the EKG from January 31, 2024, heart rate has increased from 58 bpm to 66 bpm otherwise there are no new findings . [facility] Work Phone: Basic Metabolic Panelon 09-03 Anion gap [Moles/Vol] Not performed Normal 6.0-15.0 [facility] Comment on above: Order Comment: ANDRE PALMER, CALLED PATIENT ON 09/21/24, LEFT MESSAGE-PSW NO NEW SPECIMEN OF 10/26/24-RMP Performed By: #### M G, BMP, CBC, HS TROP #### [facility] [address] [id number] [place] Calcium [Mass/Vol] 9.5 mg/dL Normal 8.6-10.3 [facility] Comment on above: Order Comment: ANDRE PALMER, CALLED PATIENT ON 09/21/24, LEFT MESSAGE-PSW NO NEW SPECIMEN OF 10/26/24-RMP Result Comment: PERF ORMED BY: [place] [address] PATHOLOGIST POLISHER AND BUFFER TAMICA SÁNCHEZ M.D. Performed By: #### M G, BMP, CBC, HS TROP #### [facility] [address] [place] [address] [place] Chloride [Moles/Vol] 97 mmol/L Low 98-107 [facility] Comment on above: Order Comment: ANDRE PALMER, CALLED PATIENT ON 09/21/24, LEFT MESSAGE-PSW NO NEW SPECIMEN OF 10/26/24-RMP Performed By: #### M G, BMP, CBC, HS TROP #### [facility] [address] [place] [address] [place] CO2 [Moles/Vol] 30.4 mmol/L Normal 21.0-31.0 [facility] Comment on above: Order Comment: HEMSTACIE PALMER, CALLED PATIENT ON 09/21/24, LEFT MESSAGE-PSW NO NEW SPECIMEN OF 10/26/24-RMP Performed By: #### M G, BMP, CBC, HS TROP #### [facility] [address] [id number] [facility] Creatinine [Mass/Vol] 0.78 mg/dL Normal 0.70-1.30 [facility] Comment on above: Order Comment: HEMSTACIE PALMER, CALLED PATIENT ON 09/21/24, LEFT MESSAGE-PSW NO NEW SPECIMEN OF 10/26/24-RMP Performed By: #### M G, BMP, CBC, HS TROP #### [facility] [address] [place] [address] [place] GFR/1.73 sq M.predicted MDRD (S/P/Bld) [Vol rate/Area] mL/min/{1.73_m2} Normal [facility] Comment on above: Order Comment: HEMSTACIE PALMER, CALLED PATIENT ON 09/21/24, LEFT MESSAGE-PSW NO NEW SPECIMEN OF 10/26/24-RMP Performed By: #### M G, BMP, CBC, HS TROP #### [facility] [address] [id number] [facility] Glucose [Mass/Vol] 157 mg/dL High 70-100 [facility] Comment on above: Order Comment: ANDRE PALMER, CALLED PATIENT ON 09/21/24, LEFT MESSAGE-PSW NO NEW SPECIMEN OF 10/26/24-RMP Result Comment: [place] Glucose Reference Range is dependent on time and content of last meal. Glucose of more than 200 mg/dL in a nonstressed, ambulatory subject supports the diagnosis of Diabetes Mellitus. ADA recommended reference range Performed By: #### M G, BMP, CBC, HS TROP #### [facility] [address] [id number] [facility] Potassium Normal 3.5-5.1 [facility] Comment on above: Order Comment: HEMSTACIE PALMER, CALLED PATIENT ON 09/21/24, LEFT MESSAGE-PSW NO NEW SPECIMEN OF 25-RMP Result Comment: Hemo lysis is present at a level that could interfere with the result. --- 09/21/24 1400 --- K previously reported as: 5.5 H mmol/L Hemolysis is present at a level that could interfere with the result. Performed By: #### M G, BMP, CBC, HS TROP #### [facility] [address] Sodium Normal 136-145 [facility] Comment on above: Order Comment: HEMOL YZED, CALLED PATIENT ON 09/21/24, LEFT MESSAGE-PSW NO NEW SPECIMEN OF 10/26/24-RMP Result Comment: Spec imen hemolyzed, redraw requested Performed By: #### M G, BMP, CBC, HS TROP #### [facility] [address] Urea nitrogen [Mass/Vol] 13 mg/dL Normal 7-25 [facility] Comment on above: Order Comment: HEMOL YZED, CALLED PATIENT ON 09/21/24, LEFT MESSAGE-PSW NO NEW SPECIMEN OF 10/26/24-RMP Performed By: #### M G, BMP, CBC, HS TROP #### [facility] [address] Activated partial thrombopla stin time (aPTT) in platelet poor plasma by coagulation aOrdered By: Praveen Song on 06-22-2024 aPTT Coag (PPP) [Time] 31.3 s 25.1-36.5 [facility] Comment on above: A hematocrit value g reater than 55% may lead to inaccurate results in coagulation testing. Patients having hematocrit values >55% require a special collection tube for coagulation studies. Please contact the laboratory at [phone] for redraw instructions. Automated basophil %Ordered By: Praveen Song on 06-22-2024 Basophils/100 WBC (Bld) 0.6 % Normal . [facility] Comment on above: Performed By: #### M G, BMP, CBC, HS TROP #### [facility] [address] [place], [place] [id number] [facility] Automated basophil countOrde red By: Praveen Song on 06-22-2024 Basophils (Bld) [#/Vol] 0.1 10*3/uL Normal 0.0-0.2 [facility] Comment on above: Result Comment: PERF ORMED BY: [place] [address] PATHOLOGIST POL[employer]ER AND BUFFER ION THOMPSON M.D. Performed By: #### M G, BMP, CBC, HS TROP #### [address] Automated blood monocyte cou ntOrdered By: Praveen Song on 06-22-2024 Monocytes (Bld) [#/Vol] 1.3 10*3/uL High 0.0-0.8 [facility] Comment on above: Performed By: #### M G, BMP, CBC, HS TROP #### [address] Automated eosinophil %Ordere d By: Praveen Song on 06-22-2024 Eosinophils/100 WBC (Bld) 2.4 % Normal . [facility] Comment on above: Performed By: #### M G, BMP, CBC, HS TROP #### [address] Automated eosinophil countOr dered By: Praveen Song on 06-22-2024 Eosinophils (Bld) [#/Vol] 0.3 10*3/uL Normal 0.0-0.45 [facility] Comment on above: Performed By: #### M G, BMP, CBC, HS TROP #### [address] Automated monocyte %Ordered By: Praveen Song on 06-22-2024 Monocytes/100 WBC (Bld) 9.8 % Normal . [facility] Comment on above: Performed By: #### M G, BMP, CBC, HS TROP #### [address] Automated neutrophil %Ordere d By: Praveen Song on 06-22-2024 Neutrophils/100 WBC (Bld) 68.2 % Normal . [facility] Comment on above: Performed By: #### M G, BMP, CBC, HS TROP #### [facility] [address] [place] [address] Complete Blood Count Auto Di ffon 06-22-2024 Mean Corpuscular HGB Conc 34.3 g/dL Normal 32.5-35.6 [facility] Comment on above: Performed By: #### M G, BMP, CBC, HS TROP #### [address] NRBC% 0.0 /100{WBC} Normal 0-0.5 [facility] Comment on above: Performed By: #### M G, BMP, CBC, HS TROP #### [address] Erythrocyte distribution wid th [Ratio] by Automated countOrdered By: Praveen Song on 06-22-2024 Erythrocyte distribution width (RBC) [Ratio] 12.7 % Normal 12.0-14.8 [facility] Comment on above: Performed By: #### M G, BMP, CBC, HS TROP #### [address] Erythrocytes [#/volume] in B lood by Automated countOrdered By: Praveen Song on 06-22-2024 RBC (Bld) [#/Vol] 4.52 10*6/uL Normal 3.90-5.60 [facility] Comment on above: Performed By: #### M G, BMP, CBC, HS TROP #### [address] Hematocrit [Volume Fraction] of Blood by Automated countOrdered By: Praveen Song on 06-22-2024 Hematocrit (Bld) [Volume fraction] 41.1 % Normal 38.8-50.0 [facility] Comment on above: Performed By: #### M G, BMP, CBC, HS TROP #### [address] Hemoglobin [Mass/volume] in BloodOrdered By: Praveen Song on 06-22-2024 Hemoglobin (Bld) [Mass/Vol] 14.1 g/dL Normal 13.0-17.0 [facility] Comment on above: Performed By: #### M Mya, EVAN, CBC, HS TROP #### [facility] [address] [place] [address] INR in Platelet poor plasma by Coagulation assayOrdered By: Praveen Song on 06-22-2024 INR Coag (PPP) [Relative time] 1.2 {INR} Normal [facility] Comment on above: INR Therapeutic Rang [...] valves: 3 - 4.5 Performed By: #### M Mya, EVAN, CBC, HS TROP #### [facility] [address] [place], [place] [id number] [facility] Allan 06-22-2024 L Specimen: [id number] Received: 06/22/24 Status: JENIFER Rosado Num: [id number] Spec Type: Surgical Subm Dr: Praveen Song MD Tissues: A Small Intestine - Biopsy/Polyp (SMALL BOWEL R/O CELIAC) B GASTRIC FOR HP (GASTRIC R/O H PYLORI) C Colon Biopsy (DESCENDING POLYP) Procedures: HE/6, Gross/Micro L4/3, H PYLORI Age/ Patient Sex Location Account Attending Physician Vick Mercado 69/M [id number] Praveen Song MD SPEC NUM: [id number] RECD: 06/22/24 STATUS: JENIFER ROSADO NUM: [id number] MISSAEL: 06/22/24- SUBM DR: Praveen Song MD ENTERED: 06/22/24-0 [facility] DR: SPEC TYPE: Surgical DEPT: S ENTERED BY: [id number] [facility]: [id number] ORDERED: HE/6, Gross/Micro L4/3, H PYLORI ORDERED: [...] descending polyp and consists of 2 Specimen: [id number] Received: 06/22/24 Status: JENIFER Rosado Num: [id number] Spec Type: Surgical Subm Dr: Praveen Song MD Tissues: A Small Intestine - Biopsy/Polyp (SMALL BOWEL R/O CELIAC) B GASTRIC FOR HP (GASTRIC R/O H PYLORI) C Colon Biopsy (DESCENDING POLYP) Procedures: HE/6, Gross/Micro L4/3, H PYLORI Patient: Vick Mercado [id number] (Continued) Specimen: [id number] Received: 06/22/24 (Continued) Gross Description (Continued) Signed (signature on file) Alissa Hodges MD 06/27/24 1503 Specimen: [id number] Received: 06/22/24 Status: JENIFER Judgeabhi Num: [id number] Spec Type: Surgical Subm Dr: Praveen Song MD Tissues: A Small Intestine - Biopsy/Polyp (SMALL BOWEL R/O CELIAC) B GASTRIC FOR HP (GASTRIC R/O H PYLORI) C Colon Biopsy (DESCENDING POLYP) Procedures: HE/6, Gross/Micro L4/3, H PYLORI Patient: Vick Mercado [id number] (Continued) Specimen: [id number] Received: 06/22/24 (Continued) Gross Description (Continued) sanders portions of soft tissue measuring 0.2 and 0.3 cm in greatest dimension. The specimen is entirely submitted in cassette C1. CPT Codes 88 305 x [phone] x 1 Specimen: [id number] Received: 06/22/24 Status: JENIFER Rosado Num: [id number] Spec Type: Surgical Subm Dr: Praveen Song MD Tissues: A Small Intestine - Biopsy/Polyp (SMALL BOWEL R/O CELIAC) B GASTRIC FOR HP (GASTRIC R/O H PYLORI) C Colon Biopsy (DESCENDING POLYP) Procedures: HE/6, Gross/Micro L4/3, H PYLORI Patient: Vick Mercado [id number] (Continued) Signed (signature on file) Alissa Hodges MD 06/27/24 1503 Normal [facility] Leukocytes [#/volume] correc rehan for nucleated erythrocytes in Blood by Automated counOrdered By: Praveen Song on 06-22-2024 WBC corrected for nucl RBC Auto (Bld) [#/Vol] 12.9 10*3/uL High 4.1-10.5 [facility] Leukocytes [#/volume] in Blo od by Automated countOrdered By: Praveen Song on 06-22-2024 WBC (Bld) [#/Vol] 12.9 10*3/uL High 4.1-10.5 [facility] Comment on above: Performed By: #### M G, BMP, CBC, HS TROP #### [facility] [address] [place] [address] [place] Lymphocytes [#/volume] in Bl ood by Automated countOrdered By: Praveen Song on 06-22-2024 Lymphocytes (Bld) [#/Vol] 2.4 10*3/uL Normal 1.00-4.8 [facility] Comment on above: Performed By: #### M G, BMP, CBC, HS TROP #### [facility] [address] [place] [address] [place] Lymphocytes/100 leukocytes i n Blood by Automated countOrdered By: Praveen Song on 06-22-2024 Lymphocytes/100 WBC (Bld) 19.0 % Normal . [facility] Comment on above: Performed By: #### M G, BMP, CBC, HS TROP #### [facility] [address] MCH [Entitic mass] by Automa rehan countOrdered By: Praveen Song on 06-22-2024 MCH (RBC) [Entitic mass] 31.2 pg Normal 27.5-35.2 [facility] Comment on above: Performed By: #### M G, BMP, CBC, HS TROP #### [facility] [address] [place] [address] MCHC Auto (RBC) [Mass/Vol]Or dered By: Praveen Song on 06-22-2024 MCHC (RBC) [Mass/Vol] 34.3 g/dL 32.5-35.6 [facility] MCV [Entitic volume] by Auto mated countOrdered By: Praveen Song on 06-22-2024 MCV (RBC) [Entitic vol] 90.9 fL Normal 83.5-101 [facility] Comment on above: Performed By: #### M G, BMP, CBC, HS TROP #### [facility] [address] [place] [address] Neutrophils [#/volume] in Bl ood by Automated countOrdered By: Praveen Song on 06-22-2024 Neutrophils (Bld) [#/Vol] 8.8 10*3/uL High 1.8-7.7 [facility] Comment on above: Performed By: #### M G, BMP, CBC, HS TROP #### [facility] [address] [place] [address] Nucleated erythrocytes [Pres ence] in Blood by Automated countOrdered By: Praveen Song on 06-22-2024 Nucleated RBC Auto Ql (Bld) 0.0 /100{WBC} 0-0.5 [facility] Partial Thromboplastin Timeo n 06-22-2024 aPTT Coag (Bld) [Time] 31.3 s Normal 25.1-36.5 [facility] Comment on above: Result Comment: A he matocrit value greater than 55% may lead to inaccurate results in coagulation testing. Patients having hematocrit values >55% require a special collection tube for coagulation studies. Please contact the laboratory at [phone] for redraw instructions. PERFORMED BY: [place] [address] PATHOLOGIST POLISHER AND BUFFER ION THOMPSON M.D. Performed By: #### M G, BMP, CBC, HS TROP #### [address] Platelet mean volume [Entiti c volume] in Blood by Automated countOrdered By: Praveen Song on 06-22-2024 Platelet mean volume (Bld) [Entitic vol] 7.6 fL Normal 6.6-10.1 [facility] Comment on above: Performed By: #### M G, BMP, CBC, HS TROP #### [address] Platelets [#/volume] in Bloo d by Automated countOrdered By: Praveen Song on 06-22-2024 Platelets (Bld) [#/Vol] 290 10*3/uL Normal 150-450 [facility] Comment on above: Performed By: #### M G, BMP, CBC, HS TROP #### [address] Prothrombin time (PT)Ordered By: Praveen Song on 06-22-2024 PT Coag (PPP) [Time] 13.7 s High 9.0-12.9 [facility] Comment on above: A hematocrit value g reater than 55% may lead to inaccurate results in coagulation testing. Patients having hematocrit values >55% require a special collection tube for coagulation studies. Please contact the laboratory at [phone] for redraw instructions. Result Comment: A he matocrit value greater than 55% may lead to inaccurate results in coagulation testing. Patients having hematocrit values >55% require a special collection tube for coagulation studies. Please contact the laboratory at [phone] for redraw instructions. Performed By: #### M G, BMP, CBC, HS TROP #### [place] [address] [facility] Basophils Auto (Bld) [#/Vol] on 05-10-2024 Basophils (Bld) [#/Vol] 0.1 10 3/uL 0.0-0.1 [facility] Basophils/100 WBC Auto (Bld) on 05-10-2024 Basophils/100 WBC (Bld) 0.8 % 0.2-2.0 [facility] Cholesterol in VLDL Calc [Ma ss/Vol]on 05-10-2024 Cholesterol in VLDL [Mass/Vol] 87.8 mg/dL [facility] Eosinophils/100 WBC Auto (Bl d)on 05-10-2024 Eosinophils/100 WBC (Bld) 3.3 % 0.9-7.0 [facility] Erythrocyte distribution wid th Auto (RBC) [Ratio]on 05-10-2024 Erythrocyte distribution width (RBC) [Ratio] 12.1 % 11.0-15.0 [facility] Estimated glomerular filtrat ion rate (GFR) non- Americanon 05-10-2024 GFR/1.73 sq M.predicted among non-blacks MDRD (S/P/Bld) [Vol rate/Area] mL/min/{1.73_m2} >=60 [facility] Globulin Calc (S) [Mass/Vol] on 05-10-2024 Globulin (S) [Mass/Vol] 3.6 g/dL [facility] Hematocrit Auto (Bld) [Volum e fraction]on 05-10-2024 Hematocrit (Bld) [Volume fraction] 39.7 % Low 42.0-54.0 [facility] Hemoglobin [Mass/volume] in Bloodon 05-10-2024 Hemoglobin (Bld) [Mass/Vol] 13.4 g/dL Low 14.0-18.0 [facility] Laboratory - Chemistry and C hemistry - challengeon 05-10-2024 Albumin [Mass/Vol] 3.8 g/dL 3.4-5.0 [facility] ALP [Catalytic activity/Vol] 53 U/L 46-116 [facility] ALT [Catalytic activity/Vol] 44 U/L 16-63 [facility] AST [Catalytic activity/Vol] 28 U/L 15-37 [facility] Bilirubin [Mass/Vol] 0.4 mg/dL 0.2-1.0 [facility] Calcium [Mass/Vol] 8.9 mg/dL 8.5-10.1 [facility] Chloride [Moles/Vol] 99 mmol/L 98-107 [facility] Cholesterol [Mass/Vol] 306 mg/dL High <=200 [facility] Cholesterol in HDL [Mass/Vol] 40 mg/dL 40-60 [facility] Comment on above: > or =60 mg/dl - LOW CARDIOVASCULAR RISK<40 mg/dl - HIGH CARDIOVASCULAR RISK Cholesterol in LDL [Mass/Vol] 180 mg/dL [facility] Comment on above: <100 mg/dl [id number] 0-129 mg/dl NEAR OR ABOVE [id number] mg/dl BORDERLINE [id number] mg/dl HIGH>190 mg/dl VERY HIGH CO2 [Moles/Vol] 28.9 mmol/L 21.0-32.0 [facility] Creatinine [Mass/Vol] 0.86 mg/dL 0.70-1.30 [facility] GFR/1.73 sq M.predicted MDRD (S/P/Bld) [Vol rate/Area] mL/min/{1.73_m2} >=60 [facility] Glucose [Mass/Vol] 154 mg/dL High 74-106 [facility] Potassium [Moles/Vol] 4.3 mmol/L 3.5-5.1 [facility] Protein [Mass/Vol] 7.4 g/dL 6.4-8.2 [facility] Sodium [Moles/Vol] 136 mmol/L 136-145 [facility] Triglyceride [Mass/Vol] 439 mg/dL High <=150 [facility] Urea nitrogen [Mass/Vol] 14.0 mg/dL 7.0-18.0 [facility] Urea nitrogen/Creatinine [Mass ratio] 16.3 mg/mg [facility] Laboratory - Hematology and Cell countson 05-10-2024 Immature granulocytes/100 WBC (Bld) 0.7 % High 0.0-0.5 [facility] Leukocytes [#/volume] correc rehan for nucleated erythrocytes in Blood by Automated counon 05-10-2024 WBC corrected for nucl RBC Auto (Bld) [#/Vol] 9.8 10 3/uL 4.0-11.0 [facility] Lymphocytes Auto (Bld) [#/Vo l]on 05-10-2024 Lymphocytes (Bld) [#/Vol] 2.5 10 3/uL 1.2-3.8 [facility] Lymphocytes/100 WBC Auto (Bl d)on 05-10-2024 Lymphocytes/100 WBC (Bld) 25.5 % 20.5-60.0 [facility] MCH Auto (RBC) [Entitic mass ]on 05-10-2024 MCH (RBC) [Entitic mass] 31.6 pg 25.9-34.0 [facility] MCHC Auto (RBC) [Mass/Vol]on 05-10-2024 MCHC (RBC) [Mass/Vol] 33.8 g/dL 29.9-35.2 [facility] MCV Auto (RBC) [Entitic vol] on 05-10-2024 MCV (RBC) [Entitic vol] 93.6 fL 80.0-94.0 [facility] Monocytes Auto (Bld) [#/Vol] on 05-10-2024 Monocytes (Bld) [#/Vol] 0.9 10 3/uL High 0.3-0.8 [facility] Monocytes/100 WBC Auto (Bld) on 05-10-2024 Monocytes/100 WBC (Bld) 9.6 % 1.7-12.0 [facility] Neutrophils Auto (Bld) [#/Vo l]on 05-10-2024 Neutrophils (Bld) [#/Vol] 5.9 10 3/uL 1.4-6.5 [facility] Neutrophils/100 WBC Auto (Bl d)on 05-10-2024 Neutrophils/100 WBC (Bld) 60.1 % 43.0-75.0 [facility] No Panel Informationon 05-10 Eosinophils # (Auto) 0.3 10 3/uL 0.0-0.7 [facility] Immature Granulocyte # (Auto) 0.07 10 3/uL High 0.00-0.03 [facility] Prostate Specific Antigen Screen 2.47 ng/mL <=4.00 [facility] Platelet mean volume Auto (B ld) [Entitic vol]on 05-10-2024 Platelet mean volume (Bld) [Entitic vol] 9.5 fL 9.5-13.5 [facility] Platelets Auto (Bld) [#/Vol] on 05-10-2024 Platelets (Bld) [#/Vol] 206 10 3/uL 150-450 [facility] RBC Auto (Bld) [#/Vol]on RBC (Bld) [#/Vol] 4.24 10 6/uL Low 4.70-6.10 [facility] Serum or plasma albumin/glob ulin mass ratioon 05-10-2024 Albumin/Globulin [Mass ratio] 1.1 {ratio} [facility] Serum or plasma anion gap de terminationon 05-10-2024 Anion gap [Moles/Vol] 12.4 mmol[facility] Serum or plasma total choles terol/high density lipoprotein (HDL) cholesterol mass meliton 05-10-2024 Cholesterol.total/Chol esterol in HDL [Mass ratio] 7.7 {ratio} [facility] Comment on above: 3.3 - 4.4 LOW RISK4. 4 - 7.1 AVERAGE RISK7.1 - 11.0 MODERATE RISK>11.0 HIGH RISK Estimated glomerular filtrat ion rate (GFR) non- Americanon 03-23-2024 GFR/1.73 sq M.predicted among non-blacks MDRD (S/P/Bld) [Vol rate/Area] mL/min/{1.73_m2} >=60 [facility] Laboratory - Chemistry and C hemistry - challengeon 03-23-2024 Calcium [Mass/Vol] 8.9 mg/dL 8.5-10.1 [facility] Chloride [Moles/Vol] 102 mmol/L 98-107 [facility] CO2 [Moles/Vol] 27.6 mmol/L 21.0-32.0 [facility] Creatinine [Mass/Vol] 0.96 mg/dL 0.70-1.30 [facility] GFR/1.73 sq M.predicted MDRD (S/P/Bld) [Vol rate/Area] mL/min/{1.73_m2} >=60 [facility] Glucose [Mass/Vol] 143 mg/dL High 74-106 [facility] Potassium [Moles/Vol] 4.4 mmol/L 3.5-5.1 [facility] Sodium [Moles/Vol] 136 mmol/L 136-145 [facility] Urea nitrogen [Mass/Vol] 22.0 mg/dL High 7.0-18.0 [facility] Urea nitrogen/Creatinine [Mass ratio] 22.9 mg/mg [facility] Serum or plasma anion gap de terminationon 03-23-2024 Anion gap [Moles/Vol] 10.8 mmol/L [facility] TRANSTHORACIC ECHO (TTE) COM PLETE 02-11-2024 TRANSTHORACIC ECHO (TTE) COMPLETE [address], [address] [place] [address] TRANSTHORACIC ECHOCARDIOGRAM REPORT Patient Name: VICK MERCADO Reading Physician: [id number] Ruby Prince MD Study Date: 02/11/2024 Ordering Provider: [id number] MARY NEAL MRN/PID: [id number] Fellow: Nurse: Date of /Age: 6 1955 / 68 years Teletypist: Francie Martin RDCS, RD, RVT Gender: M Additional Staff: Height: 177.80 cm Admit Date: Weight: 99.79 kg Admission Status: Outpatient BSA / BMI: 2.17 m2 / 31.57 Department Location: [facility] kgm2 [place] Blood Pressure: 132 /64 mmHg Study Type: TRANSTHORACIC ECHO (TTE) COMPLETE Diagnosis/ICD: Paroxysmal atrial fibrillation-I48.0; 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 (congestive) 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 (CHF)-I50.22; Other cardiomyopathies-I42.8 Indication: Afib, NICM, CHF, HTN, JANETTE CPT Codes: Echo Complete w Full Doppler-[id number] Study Detail: The following Echo studies were [...] 0.7 m/s (0.6-0.9m/s) PV Max P.9 mmHg [id number] Ruby Prince MD Electronically signed on 02/13/2024 at 1:00:52 PM Final Normal [facility] ECG 12 Leadon 01-31-2024 [facility] Work Phone: Basophils Auto (Bld) [#/Vol] Ordered By: Jairo Wild on 09-01-2023 Basophils (Bld) [#/Vol] 0.1 10*3/uL 0.0-0.2 [facility] Basophils/100 WBC Auto (Bld) Ordered By: Jairo Wild on 09-01-2023 Basophils/100 WBC (Bld) 0.6 % . [facility] Calcium [Mass/volume] in Ser um or PlasmaOrdered By: Jairo Wild on 09-01-2023 Calcium [Mass/Vol] 9.5 mg/dL 8.6-10.3 [facility] Carbon dioxide, total [Moles /volume] in Serum or PlasmaOrdered By: Jairo Wild on 09-01-2023 CO2 [Moles/Vol] 25.9 mmol/L 21.0-31.0 [facility] Chloride [Moles/volume] in S zina or PlasmaOrdered By: Jairo Wild on 09-01-2023 Chloride [Moles/Vol] 103 mmol/L 98-107 [facility] Creatinine [Mass/volume] in Serum or PlasmaOrdered By: Jairo Wild on 09-01-2023 Creatinine [Mass/Vol] 0.78 mg/dL 0.70-1.30 [facility] Eosinophils Auto (Bld) [#/Vo l]Ordered By: Jairo Wild on 09-01-2023 Eosinophils (Bld) [#/Vol] 0.4 10*3/uL 0.0-0.45 [facility] Eosinophils/100 WBC Auto (Bl d)Ordered By: Jairo Wild on 09-01-2023 Eosinophils/100 WBC (Bld) 4.0 % . [facility] Erythrocyte distribution wid th Auto (RBC) [Ratio]Ordered By: Jairo Wild on 09-01-2023 Erythrocyte distribution width (RBC) [Ratio] 12.5 % 12.0-14.8 [facility] Glucose [Mass/volume] in Ser um or PlasmaOrdered By: Jairo Wild on 09-01-2023 Glucose [Mass/Vol] 133 mg/dL 70-100 [facility] Comment on above: ADA recommended refe rence rangeRandom Glucose Reference Range is dependent on time and content of last meal. Glucose of more than 200 mg/dL in a nonstressed, ambulatory subject supports the diagnosis of Diabetes Mellitus. Hematocrit Auto (Bld) [Volum e fraction]Ordered By: Jairo Wild on 09-01-2023 Hematocrit (Bld) [Volume fraction] 43.5 % 38.8-50.0 [facility] Hemoglobin [Mass/volume] in BloodOrdered By: Jairo Wild on 09-01-2023 Hemoglobin (Bld) [Mass/Vol] 14.9 g/dL 13.0-17.0 [facility] Leukocytes [#/volume] correc rehan for nucleated erythrocytes in Blood by Automated counOrdered By: Jairo Wild on 09-01-2023 WBC corrected for nucl RBC Auto (Bld) [#/Vol] 10.4 10*3/uL 4.1-10.5 [facility] Lymphocytes Auto (Bld) [#/Vo l]Ordered By: Jairo Wild on 09-01-2023 Lymphocytes (Bld) [#/Vol] 2.5 10*3/uL 1.00-4.8 [facility] Lymphocytes/100 WBC Auto (Bl d)Ordered By: Jairo Wild on 09-01-2023 Lymphocytes/100 WBC (Bld) 24.6 % . [facility] MCH Auto (RBC) [Entitic mass ]Ordered By: Jairo Wild on 09-01-2023 MCH (RBC) [Entitic mass] 31.5 pg 27.5-35.2 [facility] MCHC Auto (RBC) [Mass/Vol]Or dered By: Jairo Wild on 09-01-2023 MCHC (RBC) [Mass/Vol] 34.2 g/dL 32.5-35.6 [facility] MCV Auto (RBC) [Entitic vol] Ordered By: Jairo Wild on 09-01-2023 MCV (RBC) [Entitic vol] 92.2 fL 83.5-101 [facility] Monocytes Auto (Bld) [#/Vol] Ordered By: Jairo Wild on 09-01-2023 Monocytes (Bld) [#/Vol] 1.0 10*3/uL 0.0-0.8 [facility] Monocytes/100 WBC Auto (Bld) Ordered By: Jairo Wild on 09-01-2023 Monocytes/100 WBC (Bld) 9.7 % . [facility] Neutrophils Auto (Bld) [#/Vo l]Ordered By: Jairo Wild on 09-01-2023 Neutrophils (Bld) [#/Vol] 6.3 10*3/uL 1.8-7.7 [facility] Neutrophils/100 WBC Auto (Bl d)Ordered By: Jairo Wild on 09-01-2023 Neutrophils/100 WBC (Bld) 61.1 % . [facility] No Panel InformationOrdered By: Jairo Wild on 09-01-2023 Estimated GFR (CKD-EPI) > 60.0 mL/Min [facility] Creatinine Clearance (Chem N/A [facility] Nucleated erythrocytes [Pres ence] in Blood by Automated countOrdered By: Jairo Wild on 09-01-2023 Nucleated RBC Auto Ql (Bld) 0.1 /100{WBC} 0-0.5 [facility] Platelet mean volume Auto (B ld) [Entitic vol]Ordered By: Jairo Wild on 09-01-2023 Platelet mean volume (Bld) [Entitic vol] 8.0 fL 6.6-10.1 [facility] Platelets Auto (Bld) [#/Vol] Ordered By: Jairo Wild on 09-01-2023 Platelets (Bld) [#/Vol] 235 10*3/uL 150-450 [facility] Potassium [Moles/volume] in Serum or PlasmaOrdered By: Jairo Wild on 09-01-2023 Potassium [Moles/Vol] 4.1 mmol/L 3.5-5.1 [facility] RBC Auto (Bld) [#/Vol]Ordere d By: Jairo Wild on 09-01-2023 RBC (Bld) [#/Vol] 4.72 10*6/uL 3.90-5.60 [facility] Serum or plasma anion gap de terminationOrdered By: Jairo Wild on 09-01-2023 Anion gap [Moles/Vol] 12.2 mmol/L 6.0-15.0 [facility] Sodium [Moles/volume] in Ser um or PlasmaOrdered By: Jairo Wild on 09-01-2023 Sodium [Moles/Vol] 137 mmol/L 136-145 [facility] Urea nitrogen [Mass/volume] in Serum or PlasmaOrdered By: Jairo Wild on 09-01-2023 Urea nitrogen [Mass/Vol] 22 mg/dL 7-25 [facility] WBC Auto (Bld) [#/Vol]Ordere d By: Jairo Wild on 09-01-2023 WBC (Bld) [#/Vol] 10.4 10*3/uL 4.1-10.5 [facility] NM HEART BLOOD POOL EJECTION FRACTION WALL MOTION (MUGA)on 08-24-2023 NM HEART BLOOD POOL EJECTION FRACTION WALL MOTION (MUGA) Interpreted By: Ruby Prince and Giannuzzi Michael STUDY: MUGA Performing facility: [facility], [address] [place] [address], [address] Provider: Karlo Aldridge RN, FUSION ANALYST PCP: Dr. Gabino Joseph Supervising provider: Ruby Prince MD INDICATION: NICM HISTORY: Gender: M; Age: 68 y/o ; Height: HT 177.8 cm cm; Weight: WT 94.802 kg kg. CAD; HTN; CHF Quit smoking 15 years ago. Cardiac catheterization on 2022. COMPARISON: Previous nuclear testing completed [id number] Muga EF=33% at [facility]. Previous echo testing completed [id number] EF=40-45% at [facility]. ACCESSION NUMBER(S): [id number] ORDERING CLINICIAN: KARLO ALDRIDGE TECHNIQUE: The patient received an IV injection of 3 ml of stannous pyrophosphate (PYP) using the in-vivo method of labeling red blood cells. After 30 minutes the patient received another IV injection of 25.7 mCi of Technetium 99m pertechnetate. Planar images of the left ventricle were obtained in the THAI 45, Lt Lateral and anterior projections. FINDINGS: [...] previous study available for comparison Signed by: Ruby Prince 08/24/2023 5:04 PM Dictation workstation: [id number] [facility] Falls Screening (Age 18+)on 06-13-2023 Fall risk assessment a) No falls within the last year [facility] Work Phone: Falls Screening (Age 18+) Adult -Cardiomindi Hardwick DO Work Phone: Office Visit (Cardiology)on 06-13-2023 [...] A DAY Basic Metabolic Panel; Status:Active; Requested for:[id number]; IO EKG Electrocardiogram- 12 Lead; Status:Complete; Done: [id number] IO MUGA (Nuclear Testing); Status:Hold For - Scheduling; Requested for:[id number]; Radiologist to Determine Optimal Study : Y What are the patient's signs and symptoms? : ISLAS, fatigue Overweight with body mass index (BMI) of 29 to 29.9 in adult Healthy Weight Tips; Status:Complete; Done: [id number] Patient Instructions PLAN: Through informed decision making [...] TABLET Sherin (more content not included)... [facility] MUGA SCAN INJECTION Patient Name: VICK MERCADO STUDY: MUGA Performing facility: [facility], [address] [place] [address], [address], [address] Provider: Balbir Lucio DO, LOCATED WITHIN [facility] PCP: Dr. Gabino Corbin Supervising provider: Ruby Prince MD INDICATION: CHF Non ischemic cardiomyopathy HISTORY: Gender: M; Age: 68 y/o ; Height: 0 cm; Weight: 0 kg. HTN; CHF Quit smoking 15 years ago. Cardiac catheterization on 2022. COMPARISON: No comparison. Previous echo testing completed [id number] EF=40-45% at [facility]. ACCESSION NUMBER(S): [id number]; [id number] ORDERING CLINICIAN: JORGE LUCIO TECHNIQUE: The patient received an IV injection of 3 ml of stannous pyrophosphate (PYP) using the in-vivo method of labeling red blood cells. After 15 minutes the patient received another IV injection of 26.5 mCi of Technetium 99m pertechnetate. Planar images of the left ventricle were obtained in the THAI 45, Lt Lateral and anterior projections. FINDINGS: [...] Electronically signed by: KINGS BANEGAS MD Normal [facility] No Panel Informationon 05-05 Normal -[facility] erick 250 DO Work Phone: Office Visit [...] For - Scheduling,Retrospective By Protocol Authorization; Requested for:[id number]; Radiologist to Determine Optimal Study : Y What are the patient's signs and symptoms? : chf, non-ischemic cardiomyopathy Basic Metabolic Panel; Status:Active - Retrospective Authorization; Requested for:[id number]; Renew: Carvedilol 6.25 MG Oral Tablet; TAKE 1 TABLET BY MOUTH TWICE DAILY WITH MEALS Renew: Spironolactone 25 MG Oral Tablet; TAKE 0.5 TABLET Daily CHF (NYHA class II, ACC/AHA stage C), Nonischemic cardiomyopathy, Shortness of breath Brain Natriuretic Peptide BNP; Status:Active - Retrospective Authorization; Requested for:[id number]; Overweight with body mass index (BMI) of 29 to 29.9 in adult Healthy Weight Tips; Status:Complete - Retrospective Authorization; Done: [id number] Some eating tips that can help you lose weight.; Status:Complete - Retrospective Authorization; Done: [id number] Patient Instructions Please bring all medicines, vitamins, [...] negative for complaint. Vitals Vital Signs Recorded: 24Mnw5147 11:53AM Heart Rate60, L Radial Qiashbfn059, LUE, Sitting Tjimxdetg26, LUE, Sitting Height5 ft 10 in Rvjjxc067 lb BMI Emxmaszecm72.99 kg/m2 BSA Calculated2.13 Tobacco Useb) No PHQ-2 [...] Exam Constituti (more content not included)... Normal [employer] Tobacco Screening.on 023 Adult depression screening assessment No [facility] 250 DO Work Phone: Fall risk assessment a) No falls within the last year [facility] 250 DO Work Phone: Tobacco use status CP b) No [facility] 250 DO Work Phone: Activated partial thrombopla stin time (aPTT) in platelet poor plasma by coagulation aOrdered By: Papo Lucio on 03-02-2023 aPTT Coag (PPP) [Time] 30.5 s 25.1-36.5 [facility] Cholesterol [Mass/volume] in Serum or PlasmaOrdered By: Papo Lucio on 03-02-2023 Cholesterol [Mass/Vol] 225 mg/dL 140-200 [facility] Comment on above: Chol less than 200 m g/dl low riskChol 201-239 mg/dl borderline riskChol 240 mg/dl and greater high risk Cholesterol in LDL Calc [Mas s/Vol]Ordered By: Papo Lucio on 03-02-2023 Cholesterol in LDL [Mass/Vol] 148 mg/dL 0-100 [facility] Comment on above: LDL ATP III CLASSIFI CATIONLDL less than 100 mg/dL OptimalLDL 100-129 mg/dL Near or above optimalLDL 130-159 mg/dL Borderline highLDL 160-189 mg/dL HighLDL greater than 189 mg/dL Very high Cholesterol in VLDL Calc [Ma ss/Vol]Ordered By: Papo Lucio on 03-02-2023 Cholesterol in VLDL [Mass/Vol] 34 mg/dL [facility] Laboratory - Chemistry and C hemistry - challengeon 03-02-2023 Cholesterol [Mass/Vol] 225\S\225 above hig h threshold 140-200 [facility] erick 250 DO Work Phone: Comment on above: Chol less than 200 m g/dl low risk Chol 201-239 mg/dl borderline risk Chol 240 mg/dl and greater high risk Cholesterol in LDL [Mass/Vol] 148\S\148 above high threshold 0-100 [facility] 250 DO Work Phone: Comment on above: LDL ATP III CLASSIFI CATION LDL less than 100 mg/dL Optimal LDL 100-129 mg/dL Near or above optimal LDL 130-159 mg/dL Borderline high LDL 160-189 mg/dL High LDL greater than 189 mg/dL Very high Laboratory - CoagulationOrde red By: Papo Lucio on 03-02-2023 PT Coag (PPP) [Time] 12.0 s 9.0-12.9 [facility] No Panel Informationon 03-02 30.5\S\30.5 Normal 25.1-36.5 [facility] 250 DO Work Phone: Comment on above: PERFORMED BY:[place] [address] [place], [place] [id number] MEDICAL DIRECTORION THOMPSON M.D. 1.0\S\1.0 Normal [facility] 250 DO Work Phone: Comment on above: [...] valves: 3 - 4.5 12.0\S\12.0 Normal 9.0-12.9 [facility] 250 DO Work Phone: 5.2\S\5.2 Normal <5.0 [facility] 250 DO Work Phone: Comment on above: PERFORMED BY:[place] [address] [place], [place] [id number] MEDICAL DIRECTORION THOMPSON M.D. 34\S\34 Normal [facility] 250 DO Work Phone: 171\S\171 above high threshold 0-149 [facility] [place] 250 DO Work Phone: Comment on above: TRIG ATP III CLASSIF ICATION TRIG less than 150 mg/dL Normal TRIG 150-199 mg/dL Borderline high TRIG 200-500 mg/dL High TRIG greater than 500 mg/dL Very high Standard traceable to the Center for Disease Conrtrol and Prevention (CDC) test method. 43\S\43 Normal 29-71 [facility] 250 DO Work Phone: Comment on above: HDL CHOL ATP-III CLA SSIFICATION Cardiovascular Risk HDL > or equal to 60 mg/dL LOW HDL < 40 mg/dL HIGH Platelet poor plasma interna tional normalized ratio (INR) by coagulation assay (relatOrdered By: Papo Lucio on 03-02-2023 INR Coag (PPP) [Relative time] 1.0 {INR} [facility] Comment on above: INR Therapeutic Rang [...] Cholesterol in HDL [Mass/Vol] 43 mg/dL 29-71 [facility] Comment on above: HDL CHOL ATP-III CLA SSIFICATION Cardiovascular RiskHDL > or equal to 60 mg/dL LOWHDL < 40 mg/dL HIGH Serum or plasma total choles terol/high density lipoprotein (HDL) cholesterol mass ratOrdered By: Papo Lucio on 03-02-2023 Cholesterol.total/Chol esterol in HDL [Mass ratio] 5.2 {ratio} <5.0 [facility] Triglyceride [Mass/volume] i n Serum or PlasmaOrdered By: Papo Lucio on 03-02-2023 Triglyceride [Mass/Vol] 171 mg/dL 0-149 [facility] Comment on above: TRIG ATP III CLASSIF ICATIONTRIG less than 150 mg/dL NormalTRIG 150-199 mg/dL Borderline highTRIG 200-500 mg/dL High TRIG greater than 500 mg/dL Very highStandard traceable to the Center for Disease Conrtrol and Prevention (CDC) test method. CBC AUTO DIFFon 03-01-2023 BASO # 0.1 103/ul Normal 0.0-0.1 [facility] Comment on above: Performed By: #### C BC #### [facility] [address] [address] [address] Will Bain Basophils/100 WBC (Bld) 0.6 % Normal 0.2-2.0 [facility] Comment on above: Performed By: #### C BC #### [facility] [address] [address] [address] Will Bain EO # 0.3 103/ul Normal 0.0-0.7 [facility] Comment on above: Performed By: #### C BC #### [facility] [address] [address] [address] Will Bain Eosinophils/100 WBC (Bld) 3.5 % Normal 0.9-7.0 [facility] Comment on above: Performed By: #### C BC #### [facility] [address] [place] [address] Dr. Will Bain Erythrocyte distribution width (RBC) [Ratio] 12.9 % Normal 11.0-15.0 [facility] Comment on above: Performed By: #### C BC #### [facility] [address] [place] [address] Dr. Will Bain Hematocrit (Bld) [Volume fraction] 40.4 % Critically low 42.0-54.0 [facility] Comment on above: Performed By: #### C BC #### [facility] [address] [place] [address] Dr. Will Bain Hemoglobin (Bld) [Mass/Vol] 13.5 g/dL Critically low 14.0-18.0 [facility] Comment on above: Performed By: #### C BC #### [facility] [address] [place] [address] Dr. Will Bain IG # 0.02 10e3/ul Normal 0.00-0.03 [facility] Comment on above: Performed By: #### C BC #### [facility] [address] [place] [address] Dr. Will Bain IG % 0.2 % Normal 0.0-0.5 [facility] Comment on above: Performed By: #### C BC #### [facility] [address] [place] [address] Dr. Will Bain LYMPH # 2.3 103/ul Normal 1.2-3.8 [facility] Comment on above: Performed By: #### C BC #### [facility] [address] [place] [address] Dr. Will Bain Lymphocytes/100 WBC (Bld) 27.8 % Normal 20.5-60.0 [facility] Comment on above: Performed By: #### C BC #### [facility] [address] [place] [address] Dr. Will Bain MANUAL DIFF REQ NO Normal [facility] Comment on above: Performed By: #### C BC #### [facility] [address] [place] [address] Dr. Will Bain MCH (RBC) [Entitic mass] 29.9 pg Normal 25.9-34.0 [facility] Comment on above: Performed By: #### C BC #### [facility] [address] [place] [address] Dr. Will Bain MCHC (RBC) [Mass/Vol] 33.4 g/dL Normal 29.9-35.2 [facility] Comment on above: Performed By: #### C BC #### [facility] [address] [place] [address] Dr. Will Bain MCV (RBC) [Entitic vol] 89.6 fL Normal 80.0-94.0 [facility] Comment on above: Performed By: #### C BC #### [facility] [address] [place] [address] Dr. Will Bain MONO # 0.9 103/ul Critically high 0.3-0.8 [facility] Comment on above: Performed By: #### C BC #### [facility] [address] [place] [address] Dr. Will Bain Monocytes/100 WBC (Bld) 10.3 % Normal 1.7-12.0 [facility] Comment on above: Performed By: #### C BC #### [facility] [address] [place] [address] Dr. Will Bain NEUT # 4.7 103/ul Normal 1.4-6.5 [facility] Comment on above: Performed By: #### C BC #### [facility] [address] [place] [address] Dr. Will Bain Neutrophils/100 WBC (Bld) 57.6 % Normal 43.0-75.0 [facility] Comment on above: Performed By: #### C BC #### [facility] [address] [place] [address] Dr. Will Bain Platelet mean volume (Bld) [Entitic vol] 9.3 fL Critically low 9.5-13.5 [facility] Comment on above: Performed By: #### C BC #### [facility] [address] [place], [place] [address] Dr. Will Bain PLT 273 103/ul Normal 150-450 [facility] Comment on above: Performed By: #### C BC #### [facility] [address] [place], [place] [address] Dr. Will Bain RBC 4.51 106/ul Critically low 4.70-6.10 [facility] Comment on above: Performed By: #### C BC #### [facility] [address] [place], [place] [address] Dr. Will Bain WBC 8.2 103/ul Normal 4.0-11.0 [facility] Comment on above: Performed By: #### C BC #### [facility] [address] [place], [place] [address] Dr. Will Bain MG MAMM DIAGNOSTIC 3D RO CA Don 03-01-2023 MG MAMM DIAGNOSTIC 3D RO CAD Patient: VICK MERCADO Exam Date: 03/01/2023 : 1955 Gender:M Ordering : DR JAIRO CORBIN D.O. Admission #: [id number] Family : Order #: [id number] CLICK HERE TO VIEW EXAM RADIOLOGY REPORT PROCEDURE: MAMMOGRAM DIAGNOSTIC 3D BILATERAL CAD, 03/01/2023, 10:22 ULTRASOUND BREAST LEFT LIMITED, 03/01/2023, 11:05 COMPARISON: None. INDICATIONS: Hypertrophy of breast Calculator Name NCI Breast Cancer Risk Assessment Tool 5 Year Breast Cancer Risk Not Applicable. Lifetime Breast Cancer Risk Not Applicable. Personal Breast Cancer No Personal Ovarian Cancer No Treatments None Family Cancers None LOCATION: [facility] BREAST COMPOSITION: Almost entirely fatty. FINDINGS: [...] MD on 03/01/2023 at 12:13 Normal [facility] PROF CHEM 8 (BAS METB)on Anion gap [Moles/Vol] 13.8 mmol/L Normal [facility] Comment on above: Performed By: #### A LT, AST, BMP #### [facility] [address] [place] [address] Dr. Will Bain Calcium [Mass/Vol] 9.0 mg/dL Normal 8.5-10.1 [facility] Comment on above: Performed By: #### A LT, AST, BMP #### [facility] [address] [place] [address] Dr. Will Bain Chloride [Moles/Vol] 101 mmol/L Normal 98-107 [facility] Comment on above: Performed By: #### A LT, AST, BMP #### [facility] [address] [place] [address] Dr. Will Bain CO2 [Moles/Vol] 26.6 mmol/L Normal 21.0-32.0 [facility] Comment on above: Performed By: #### A LT, AST, BMP #### [facility] [address] [place] [address] Dr. Will Bain Creatinine [Mass/Vol] 0.92 mg/dL Normal 0.70-1.30 [facility] Comment on above: Performed By: #### A LT, AST, BMP #### [facility] [address] [place] [address] Dr. Will Bain EGFR-AF ISRAELI >60 Normal >=60 [facility] Comment on above: Performed By: #### A LT, AST, BMP #### [facility] [address] [place] [address] Dr. Will Bain EGFR-NON AF ISRAELI >60 Normal >=60 [facility] Comment on above: Performed By: #### A LT, AST, BMP #### [facility] [address] [place] [address] Dr. Will Bain Glucose [Mass/Vol] 121 mg/dL Critically high 74-106 [facility] Comment on above: Performed By: #### A LT, AST, BMP #### [facility] [address] [address] [address] Will Bain Potassium [Moles/Vol] 4.4 mmol/L Normal 3.5-5.1 [facility] Comment on above: Performed By: #### A LT, AST, BMP #### [facility] [address] [address] [address] Will Bain Sodium [Moles/Vol] 137 mmol/L Normal 136-145 [facility] Comment on above: Performed By: #### A LT, AST, BMP #### [facility] [address] [address] [address] Will Bain Urea nitrogen [Mass/Vol] 21.0 mg/dL Critically high 7.0-18.0 [facility] Comment on above: Performed By: #### A LT, AST, BMP #### [facility] [address] [place] [address] Dr. Will Bain Urea nitrogen/Creatinine [Mass ratio] 22.8 mg/mg Normal [facility] Comment on above: Performed By: #### A LT, AST, BMP #### [facility] [address] [place] [address] Dr. Will Bain [facility] 03-01-2023 AST [Catalytic activity/Vol] 24 U/L Normal 15-37 [facility] Comment on above: Performed By: #### A LT, AST, BMP ####[facility] [id number] [address]Dr. Will Bain [facility] 03-01-2023 ALT [Catalytic activity/Vol] 31 U/L Normal 16-63 [facility] Comment on above: Performed By: #### A LT, AST, BMP #### [facility] [address] [place] [address] Dr. Will Bain US BREAST LEFT LIMITEDon BREAST LEFT LIMITED Patient: VICK OLIVEIRA AM Exam Date: 03/01/2023 : 1955 Gender:M Ordering : DR JAIRO CORBIN D.O. Admission #: [id number] Family : Order #: [id number] CLICK HERE TO VIEW EXAM RADIOLOGY REPORT PROCEDURE: MAMMOGRAM DIAGNOSTIC 3D BILATERAL CAD, 03/01/2023, 10:22 ULTRASOUND BREAST LEFT LIMITED, 03/01/2023, 11:05 COMPARISON: None. INDICATIONS: Hypertrophy of breast Calculator Name NCI Breast Cancer Risk Assessment Tool 5 Year Breast Cancer Risk Not Applicable. Lifetime Breast Cancer Risk Not Applicable. Personal Breast Cancer No Personal Ovarian Cancer No Treatments None Family Cancers None LOCATION: [facility] BREAST COMPOSITION: Almost entirely fatty. FINDINGS: [...] MD on 03/01/2023 at 12:13 Normal [facility] Calcium [Mass/volume] in Ser um or PlasmaOrdered By: Brad Livingston on 02-25-2023 Calcium [Mass/Vol] 9.3 mg/dL 8.6-10.3 [facility] Carbon dioxide, total [Moles /volume] in Serum or PlasmaOrdered By: Brad Livingston on 02-25-2023 CO2 [Moles/Vol] 28.4 mmol/L 21.0-31.0 [facility] Chloride [Moles/volume] in S zina or PlasmaOrdered By: Brad Livingston on 02-25-2023 Chloride [Moles/Vol] 100 mmol/L 98-107 [facility] Creatinine [Mass/volume] in Serum or PlasmaOrdered By: Brad Livingston on 02-25-2023 Creatinine [Mass/Vol] 0.81 mg/dL 0.70-1.30 [facility] Glucose [Mass/volume] in Ser um or PlasmaOrdered By: Brad Livingston on 02-25-2023 Glucose [Mass/Vol] 110 mg/dL 70-100 [facility] Comment on above: ADA recommended refe rence rangeRandom Glucose Reference Range is dependent on time and content of last meal. Glucose of more than 200 mg/dL in a nonstressed, ambulatory subject supports the diagnosis of Diabetes Mellitus. Magnesium [Mass/volume] in S zina or PlasmaOrdered By: Brad Livingston on 02-25-2023 Magnesium [Mass/Vol] 2.3 mg/dL 1.9-2.7 [facility] No Panel InformationOrdered By: Brad Livingston on 02-25-2023 Estimated GFR (CKD-EPI) > 60.0 mL/Min [facility] Creatinine Clearance (Chem 90.12 [facility] Potassium [Moles/volume] in Serum or PlasmaOrdered By: Brad Livingston on 02-25-2023 Potassium [Moles/Vol] 4.3 mmol/L 3.5-5.1 [facility] Serum or plasma anion gap de terminationOrdered By: Brad Livingston on 02-25-2023 Anion gap [Moles/Vol] TNP [facility] Comment on above: Test not performed Sodium [Moles/volume] in Ser um or PlasmaOrdered By: Brad Livingston on 02-25-2023 Sodium [Moles/Vol] 137 mmol/L 136-145 [facility] Urea nitrogen [Mass/volume] in Serum or PlasmaOrdered By: Brad Livingston on 02-25-2023 Urea nitrogen [Mass/Vol] 25 mg/dL 7-25 [facility] Basophils Auto (Bld) [#/Vol] Ordered By: Mirna Aldridge on 02-24-2023 Basophils (Bld) [#/Vol] 0.1 10*3/uL 0.0-0.2 [facility] Basophils/100 WBC Auto (Bld) Ordered By: Mirna Aldridge on 02-24-2023 Basophils/100 WBC (Bld) 0.6 % . [facility] Eosinophils Auto (Bld) [#/Vo l]Ordered By: Mirna Aldridge on 02-24-2023 Eosinophils (Bld) [#/Vol] 0.3 10*3/uL 0.0-0.45 [facility] Eosinophils/100 WBC Auto (Bl d)Ordered By: Mirna Aldridge on 02-24-2023 Eosinophils/100 WBC (Bld) 3.0 % . [facility] Erythrocyte distribution wid th Auto (RBC) [Ratio]Ordered By: Mirna Aldridge on 02-24-2023 Erythrocyte distribution width (RBC) [Ratio] 13.3 % 12.0-14.8 [facility] Hematocrit Auto (Bld) [Volum e fraction]Ordered By: Mirna Aldridge on 02-24-2023 Hematocrit (Bld) [Volume fraction] 39.3 % 38.8-50.0 [facility] Hemoglobin [Mass/volume] in BloodOrdered By: Mirna Aldridge on 02-24-2023 Hemoglobin (Bld) [Mass/Vol] 13.4 g/dL 13.0-17.0 [facility] Leukocytes [#/volume] correc rehan for nucleated erythrocytes in Blood by Automated counOrdered By: Mirna Aldridge on 02-24-2023 WBC corrected for nucl RBC Auto (Bld) [#/Vol] 11.5 10*3/uL 4.1-10.5 [facility] Lymphocytes Auto (Bld) [#/Vo l]Ordered By: Mirna Aldridge on 02-24-2023 Lymphocytes (Bld) [#/Vol] 2.4 10*3/uL 1.00-4.8 [facility] Lymphocytes/100 WBC Auto (Bl d)Ordered By: Mirna Aldridge on 02-24-2023 Lymphocytes/100 WBC (Bld) 20.9 % . [facility] MCH Auto (RBC) [Entitic mass ]Ordered By: Mirna Aldridge on 02-24-2023 MCH (RBC) [Entitic mass] 30.2 pg 27.5-35.2 [facility] MCHC Auto (RBC) [Mass/Vol]Or dered By: Mirna Aldridge on 02-24-2023 MCHC (RBC) [Mass/Vol] 34.2 g/dL 32.5-35.6 [facility] MCV Auto (RBC) [Entitic vol] Ordered By: Mirna Aldridge on 02-24-2023 MCV (RBC) [Entitic vol] 88.4 fL 83.5-101 [facility] Monocytes Auto (Bld) [#/Vol] Ordered By: Mirna Aldridge on 02-24-2023 Monocytes (Bld) [#/Vol] 1.0 10*3/uL 0.0-0.8 [facility] Monocytes/100 WBC Auto (Bld) Ordered By: Mirna Aldridge on 02-24-2023 Monocytes/100 WBC (Bld) 9.1 % . [facility] Neutrophils Auto (Bld) [#/Vo l]Ordered By: Mirna Aldridge on 02-24-2023 Neutrophils (Bld) [#/Vol] 7.6 10*3/uL 1.8-7.7 [facility] Neutrophils/100 WBC Auto (Bl d)Ordered By: Mirna Aldridge on 02-24-2023 Neutrophils/100 WBC (Bld) 66.4 % . [facility] Nucleated erythrocytes [Pres ence] in Blood by Automated countOrdered By: Mirna Aldridge on 02-24-2023 Nucleated RBC Auto Ql (Bld) 0.1 /100{WBC} 0-0.5 [facility] Platelet mean volume Auto (B ld) [Entitic vol]Ordered By: Mirna Aldridge on 02-24-2023 Platelet mean volume (Bld) [Entitic vol] 7.7 fL 6.6-10.1 [facility] Platelets Auto (Bld) [#/Vol] Ordered By: Mirna Aldridge on 02-24-2023 Platelets (Bld) [#/Vol] 267 10*3/uL 150-450 [facility] RBC Auto (Bld) [#/Vol]Ordere d By: Mirna Aldridge on 02-24-2023 RBC (Bld) [#/Vol] 4.44 10*6/uL 3.90-5.60 [facility] Troponin I.cardiac [Mass/vol ume] in Serum or Plasma by Detection limit <= 0.01 ng/Ordered By: Mirna Aldridge on 02-24-2023 Troponin I.cardiac DL <= 0.01 ng/mL [Mass/Vol] 27.8 pg/mL 0.0-20.0 [facility] WBC Auto (Bld) [#/Vol]Ordere d By: Mirna Aldridge on 02-24-2023 WBC (Bld) [#/Vol] 11.5 10*3/uL 4.1-10.5 [facility] Monocyte distribution width [Entitic volume] in Blood by AutomatedOrdered By: Shalom Azar on 02-23-2023 Monocyte distribution width Auto (Bld) [Entitic vol] 17.08 % 0.00-20.00 [facility] Natriuretic peptide B [Mass/ Vol]Ordered By: Shalom Azar on 02-23-2023 Natriuretic peptide B (Bld) [Mass/Vol] 532.0 pg/mL 5-[address] [facility] [address] SINUSES WO CONon 02-20-20 23 [...] ZARIA UNLU Date: 2023-02-19 18:32 Normal [facility] MRI BRAIN WO CONon 2 MRI [...] IVÁN BARBA Date: 2022-06-01 11:35 Normal [facility] TSHon 06-01-2022 TSH 2.078 uIU/mL Normal 0.358-3.74 0 [facility] Comment on above: Performed By: #### T SH #### [facility] [address] [place] [address] Dr. Will Bain VITAMIN B12on 06-01-2022 Cobalamin (Vitamin B12) [Mass/Vol] 514.0 pg/mL Normal 193.0-986. 0 [facility] Comment on above: Performed By: #### V [id number] #### [facility] [address] [place] [address] Dr. Will Bain Vital Signs Date Time Vital Sign Value Performing Clinician Facility 05-10-2025 16:17-0400 Body height 179.1 cm Karlo Aldridge APRN-FUSION ANALYST Work Phone: [facility] 05-10-2025 16:17-040 Body mass index (BMI) [Ratio] 30.41 kg/m2 Karlo Aldridge DIRECTOR OF AVIATION-FUSION ANALYST Work Phone: [facility] 05-10-2025 16:17-040 Body weight 97.52 kg Karlo Aldridge DIRECTOR OF AVIATION-FUSION ANALYST Work Phone: [facility] 05-10-2025 16:17-0400 Diastolic blood pressure 60 mm[Hg] Karlo Aldridge DIRECTOR OF AVIATION-FUSION ANALYST Work Phone: [facility] 05-10-2025 16:17-040 Heart rate 72 /min Karlo Aldridge DIRECTOR OF AVIATION-FUSION ANALYST Work Phone: [facility] 05-10-2025 16:17-0400 Systolic blood pressure 120 mm[Hg] Karlo Aldridge DIRECTOR OF AVIATION-FUSION ANALYST Work Phone: [phone] [place] [address] 05-01-2025 15:57-0400 Body height 177.8 cm Jairo Ball DO Work Phone: [facility] 05-01-2025 15:57-0400 Body mass index (BMI) [Ratio] 31 kg/m2 Jairo Ball DO Work Phone: [facility] 05-01-2025 15:57-0400 Body weight 98.14 kg Jairo Ball DO Work Phone: [facility] 05-01-2025 15:57-0400 Diastolic blood pressure 80 mm[Hg] Jairo Ball DO Work Phone: [facility] 05-01-2025 15:57-0400 Heart rate 67 /min Jairo Ball DO Work Phone: [facility] 05-01-2025 15:57-0400 Respiratory rate 12 /min Jairo Ball DO Work Phone: [facility] 05-01-2025 15:57-0400 SaO2% (BldA) [Mass fraction] 97 % Jairo Ball DO Work Phone: [facility] 05-01-2025 15:57-0400 Systolic blood pressure 134 mm[Hg] Jairo Ball DO Work Phone: [facility] 04-22-2025 15:35-0400 Body height 177.8 cm Jairo Ball DO Work Phone: [facility] 04-22-2025 15:35-0400 Body mass index (BMI) [Ratio] 31.3 kg/m2 Jairo Ball DO Work Phone: [facility] 04-22-2025 15:35-0400 Body weight 98.99 kg Jairo Ball DO Work Phone: [facility] 04-22-2025 15:35-0400 Diastolic blood pressure 86 mm[Hg] Jairo Ball DO Work Phone: [facility] 04-22-2025 15:35-0400 Heart rate 71 /min Jairo Ball DO Work Phone: [facility] 04-22-2025 15:35-0400 SaO2% (BldA) [Mass fraction] 96 % Jairo Ball DO Work Phone: [facility] 04-22-2025 15:35-0400 Systolic blood pressure 136 mm[Hg] Jairo Ball DO Work Phone: [facility] 04-22-2025 13:47-0400 Body height 177.8 cm Jairo Murcek DO Work Phone: [facility] 04-22-2025 13:47-0400 Body mass index (BMI) [Ratio] 28.7 kg/m2 Jairo Murcek DO Work Phone: [facility] 04-22-2025 13:47-0400 Body weight 90.72 kg Jairo Murcek DO Work Phone: [facility] 04-17-2025 17:56-0400 Body temperature 97.8 [degF] Jairo Ball DO Work Phone: [facility] 04-17-2025 17:56-0400 Diastolic blood pressure 74 mm[Hg] Jairo Ball DO Work Phone: [facility] 04-17-2025 17:56-0400 Heart rate 70 /min Jairo Ball DO Work Phone: [facility] 04-17-2025 17:56-0400 Respiratory rate 17 /min Jairo Ball DO Work Phone: [facility] 04-17-2025 17:56-0400 SaO2% (BldA) [Mass fraction] 97 % Jairo Ball DO Work Phone: [facility] 04-17-2025 17:56-0400 Systolic blood pressure 119 mm[Hg] Jairo Ball DO Work Phone: [facility] 04-17-2025 05:42-0400 Body weight 94.8 kg Jairo Ball DO Work Phone: [facility] 04-17-2025 05:42-0400 Inhaled oxygen flow rate 5 L/min Jairo Ball DO Work Phone: [facility] 04-16-2025 16:03-0400 Body height 179.07 cm Jairo Ball DO Work Phone: [facility] 04-16-2025 02:30-0400 Diastolic blood pressure 87 mm[Hg] Jairo Ball DO Work Phone: [facility] 04-16-2025 02:30-0400 Systolic blood pressure 146 mm[Hg] Jairo Ball DO Work Phone: [facility] 04-16-2025 01:30-0400 Heart rate 82 /min Jairo Ball DO Work Phone: [facility] 04-16-2025 01:30-0400 SaO2% (BldA) [Mass fraction] 92 % Jairo Ball DO Work Phone: [facility] 04-15-2025 21:15-0400 Respiratory rate 20 /min Jairo Ball DO Work Phone: [facility] 04-15-2025 17:29-0400 Body temperature 98.1 [degF] Jairo Ball DO Work Phone: [facility] 04-15-2025 17:23-0400 Body height 154.94 cm Jairo Ball DO Work Phone: [facility] 04-15-2025 17:23-0400 Body weight 51.45 kg Jairo Ball DO Work Phone: [facility] 03-25-2025 13:28-0400 Body height 177.8 cm Jairo Murcek DO Work Phone: [facility] 03-25-2025 13:28-0400 Body mass index (BMI) [Ratio] 28.7 kg/m2 Jairo Murcek DO Work Phone: [facility] 03-25-2025 13:28-0400 Body weight 90.72 kg Jairo Murcek DO Work Phone: [facility] 03-22-2025 13:14-0400 Body height 177.8 cm Jairo Ball DO Work Phone: [facility] 03-22-2025 13:14-0400 Body mass index (BMI) [Ratio] 30.9 kg/m2 Jairo Ball DO Work Phone: [facility] 03-22-2025 13:14-0400 Body weight 97.97 kg Jairo Ball DO Work Phone: [facility] 03-22-2025 13:14-0400 Diastolic blood pressure 71 mm[Hg] Jairo Ball DO Work Phone: [facility] 03-22-2025 13:14-0400 Heart rate 75 /min Jairo Ball DO Work Phone: [facility] 03-22-2025 13:14-0400 Systolic blood pressure 134 mm[Hg] Jairo Ball DO Work Phone: [facility] 03-11-2025 15:44-0400 Body height 177.8 cm Jairo Ball DO Work Phone: [facility] 03-11-2025 15:44-0400 Body mass index (BMI) [Ratio] 31.1 kg/m2 Jairo Ball DO Work Phone: [facility] 03-11-2025 15:44-0400 Body weight 98.54 kg Jairo Ball DO Work Phone: [facility] 03-11-2025 15:44-0400 Diastolic blood pressure 88 mm[Hg] Jairo Ball DO Work Phone: [facility] 03-11-2025 15:44-0400 Heart rate 92 /min Jairo Ball DO Work Phone: [facility] 03-11-2025 15:44-0400 Respiratory rate 12 /min Jairo Ball DO Work Phone: [facility] 03-11-2025 15:44-0400 Systolic blood pressure 142 mm[Hg] Jairo Ball DO Work Phone: [facility] 02-20-2025 13:08-0400 Body height 177.8 cm Jairo Murcek DO Work Phone: [facility] 02-20-2025 13:08-0400 Body mass index (BMI) [Ratio] 28.7 kg/m2 Jairo Murcek DO Work Phone: [facility] 02-20-2025 13:08-0400 Body weight 90.72 kg Jairo Murcek DO Work Phone: [facility] 01-21-2025 10:52-0400 Body height 179.1 cm Mary Neal MD Work Phone: [facility] 01-21-2025 10:52-0400 Body mass index (BMI) [Ratio] 30.98 kg/m2 Mary Neal MD Work Phone: [facility] 01-21-2025 10:52-0400 Body weight 99.34 kg Mary Neal MD Work Phone: [facility] 01-21-2025 10:52-0400 Diastolic blood pressure 80 mm[Hg] Mary Neal MD Work Phone: [facility] 01-21-2025 10:52-0400 Heart rate 80 /min Mary Neal MD Work Phone: [facility] 01-21-2025 10:52-0400 Systolic blood pressure 126 mm[Hg] Mary Neal MD Work Phone: [facility] 12-31-2024 16:01-0400 Body height 177.8 cm Jairo Ordazcek DO Work Phone: [facility] 12-31-2024 16:01-0400 Body mass index (BMI) [Ratio] 28.7 kg/m2 Jairo Murcek DO Work Phone: [facility] 12-31-2024 16:01-0400 Body weight 90.72 kg Jairo Murcek DO Work Phone: [facility] 12-25-2024 16:00-0400 Body temperature 97.8 [degF] Jairo Ball DO Work Phone: [facility] 12-25-2024 16:00-0400 Diastolic blood pressure 86 mm[Hg] Jairo Ball DO Work Phone: [facility] 12-25-2024 16:00-0400 Respiratory rate 18 /min Jairo Ball DO Work Phone: [facility] 12-25-2024 16:00-0400 SaO2% (BldA) [Mass fraction] 94 % Jairo Ball DO Work Phone: [facility] 12-25-2024 16:00-0400 Systolic blood pressure 135 mm[Hg] Jairo Ball DO Work Phone: [facility] 12-25-2024 11:09-0400 Heart rate 86 /min Jairo Ball DO Work Phone: [facility] 12-25-2024 01:00-0400 Body height 180.34 cm Jairo Ball DO Work Phone: [facility] 12-25-2024 01:00-0400 Body weight 96 kg Jairo Ball DO Work Phone: [facility] 12-24-2024 15:53-0400 Body height 177.8 cm [facility] 12-24-2024 15:53-0400 Body mass index (BMI) [Ratio] 31.7 kg/m2 [facility] 12-24-2024 15:53-0400 Body weight 100.3 kg [facility] 12-24-2024 15:53-0400 Diastolic blood pressure 89 mm[Hg] [facility] 12-24-2024 15:53-0400 Heart rate 90 /min [facility] 12-24-2024 15:53-0400 Respiratory rate 12 /min [facility] 12-24-2024 15:53-0400 Systolic blood pressure 139 mm[Hg] [facility] 11-30-2024 10:22-0500 Body height 179.1 cm Mary Neal MD Work Phone: [facility] 11-30-2024 10:22-0500 Body mass index (BMI) [Ratio] 30.67 kg/m2 Mary Neal MD Work Phone: [facility] 11-30-2024 10:22-0500 Body weight 98.34 kg Mary Neal MD Work Phone: [facility] 11-30-2024 10:22-0500 Diastolic blood pressure 90 mm[Hg] Mary Neal MD Work Phone: [facility] 11-30-2024 10:22-0500 Heart rate 66 /min Mary Neal MD Work Phone: [facility] 11-30-2024 10:22-0500 Systolic blood pressure 148 mm[Hg] Mary Neal MD Work Phone: [facility] 07-30-2024 11:51-0400 Body height 179.1 cm Mary Neal MD Work Phone: [facility] 07-30-2024 11:51-0400 Body mass index (BMI) [Ratio] 31.32 kg/m2 Mary Neal MD Work Phone: [facility] 07-30-2024 11:51-0400 Body weight 100.43 kg Mary Neal MD Work Phone: [facility] 07-30-2024 11:51-0400 Diastolic blood pressure 70 mm[Hg] Mary Neal MD Work Phone: [facility] 07-30-2024 11:51-0400 Heart rate 78 /min Mary Neal MD Work Phone: [facility] 07-30-2024 11:51-0400 Systolic blood pressure 126 mm[Hg] Mary Neal MD Work Phone: [facility] 06-22-2024 11:45-0400 Diastolic blood pressure 81 mm[Hg] DO Jairo Ball Work Phone: [facility] 06-22-2024 11:45-0400 Heart rate 62 /min DO Jairo Ball Work Phone: [facility] 06-22-2024 11:45-0400 Respiratory rate 16 /min DO Jairo Ball Work Phone: [facility] 06-22-2024 11:45-0400 SaO2% (BldA) [Mass fraction] 97 % DO Jairo Ball Work Phone: [facility] 06-22-2024 11:45-0400 Systolic blood pressure 120 mm[Hg] DO Jairo Ball Work Phone: [facility] 06-22-2024 10:10-0400 Body height 177.8 cm DO Jairo Ball Work Phone: [facility] 06-22-2024 10:10-0400 Body weight 97.97 kg DO Jairo Ball Work Phone: [facility] 05-30-2024 09:07-0400 Body height 177.8 cm [facility] 05-30-2024 09:07-0400 Body mass index (BMI) [Ratio] 31.4 kg/m2 [facility] 05-30-2024 09:07-0400 Body weight 99.5 kg [facility] 05-30-2024 09:07-0400 Diastolic blood pressure 83 mm[Hg] [facility] 05-30-2024 09:07-0400 Heart rate 60 /min [facility] 05-30-2024 09:07-0400 Respiratory rate 12 /min [facility] 05-30-2024 09:07-0400 Systolic blood pressure 169 mm[Hg] [facility] 05-01-2024 14:20-0400 Body height 177.8 cm [facility] 05-01-2024 14:20-0400 Body mass index (BMI) [Ratio] 31.7 kg/m2 [facility] 05-01-2024 14:20-0400 Body weight 100.35 kg [facility] 05-01-2024 14:20-0400 Diastolic blood pressure 81 mm[Hg] [facility] 05-01-2024 14:20-0400 Heart rate 68 /min [facility] 05-01-2024 14:20-0400 Respiratory rate 12 /min [facility] 05-01-2024 14:20-0400 Systolic blood pressure 144 mm[Hg] [facility] 01-31-2024 15:43-0400 Body height 177.8 cm [facility] 01-31-2024 15:43-0400 Body mass index (BMI) [Ratio] 31.1 kg/m2 [facility] 01-31-2024 15:43-0400 Body weight 98.48 kg [facility] 01-31-2024 15:43-0400 Diastolic blood pressure 91 mm[Hg] [facility] 01-31-2024 15:43-0400 Heart rate 73 /min [facility] 01-31-2024 15:43-0400 Respiratory rate 12 /min [facility] 01-31-2024 15:43-0400 Systolic blood pressure 161 mm[Hg] [facility] 01-30-2024 14:09-0400 Body height 177.8 cm Mary Neal MD Work Phone: [facility] 01-30-2024 14:09-0400 Body mass index (BMI) [Ratio] 31.57 kg/m2 Mary Neal MD Work Phone: [facility] 01-30-2024 14:09-0400 Body weight 99.79 kg Mary Neal MD Work Phone: [facility] 01-30-2024 14:09-0400 Diastolic blood pressure 62 mm[Hg] Mary Neal MD Work Phone: [facility] 01-30-2024 14:09-0400 Heart rate 58 /min Mary Neal MD Work Phone: [facility] 01-30-2024 14:09-0400 Systolic blood pressure 130 mm[Hg] Mary Neal MD Work Phone: [facility] 11-10-2023 13:53-0500 Body height 179.1 cm Mary Neal MD Work Phone: [facility] 11-10-2023 13:53-0500 Body mass index (BMI) [Ratio] 30.98 kg/m2 Mary Neal MD Work Phone: [facility] 11-10-2023 13:53-0500 Body weight 99.34 kg Mary Neal MD Work Phone: [facility] 11-10-2023 13:53-0500 Diastolic blood pressure 82 mm[Hg] Mary Neal MD Work Phone: [facility] 11-10-2023 13:53-0500 Heart rate 72 /min Mary Neal MD Work Phone: [facility] 11-10-2023 13:53-0500 Systolic blood pressure 120 mm[Hg] Mary Neal MD Work Phone: [facility] 11-01-2023 15:30-0500 Body height 177.8 cm DO Jairo Ball Work Phone: [facility] 11-01-2023 15:30-0500 Body weight 98.88 kg DO Jairo Ball Work Phone: [facility] 11-01-2023 15:30-0500 Diastolic blood pressure 77 mm[Hg] DO Jairo Ball Work Phone: [facility] 11-01-2023 15:30-0500 Systolic blood pressure 117 mm[Hg] DO Jairo Ball Work Phone: [facility] 10-24-2023 15:40-0500 Body temperature 97.6 [degF] DO Jairo Ball Work Phone: [facility] 10-24-2023 15:40-0500 Diastolic blood pressure 76 mm[Hg] DO Jairo Ball Work Phone: [facility] 10-24-2023 15:40-0500 Heart rate 65 /min DO Jairo Ball Work Phone: [facility] 10-24-2023 15:40-0500 Respiratory rate 18 /min DO Jairo Ball Work Phone: [facility] 10-24-2023 15:40-0500 SaO2% (BldA) [Mass fraction] 100 % DO Jairo Ball Work Phone: [facility] 10-24-2023 15:40-0500 Systolic blood pressure 135 mm[Hg] DO Jairo Ball Work Phone: [facility] 10-24-2023 06:00-0500 Body weight 94.1 kg DO Jairo Ball Work Phone: [facility] 10-24-2023 04:00-0500 Inhaled oxygen flow rate 2 L/min DO Jairo Ball Work Phone: [facility] 10-21-2023 18:32-0500 Body height 177.8 cm DO Jairo Ball Work Phone: [facility] 10-21-2023 17:16-0500 Diastolic blood pressure 98 mm[Hg] DO Jairo Ball Work Phone: [facility] 10-21-2023 17:16-0500 Heart rate 96 /min DO Jairo Ball Work Phone: [facility] 10-21-2023 17:16-0500 Respiratory rate 16 /min DO Jairo Ball Work Phone: [facility] 10-21-2023 17:16-0500 SaO2% (BldA) [Mass fraction] 94 % DO Jairo Ball Work Phone: [facility] 10-21-2023 17:16-0500 Systolic blood pressure 146 mm[Hg] DO Jairo Ball Work Phone: [facility] 10-21-2023 14:35-0500 Body temperature 98.6 [degF] DO Jairo Ball Work Phone: [facility] 10-21-2023 14:32-0500 Body height 177.8 cm DO Jairo Ball Work Phone: [facility] 10-21-2023 14:32-0500 Body weight 99.1 kg DO Jairo Ball Work Phone: [facility] 09-29-2023 14:04-0500 Body height 179.1 cm Mary Neal MD Work Phone: [facility] 09-29-2023 14:04-0500 Body mass index (BMI) [Ratio] 31.12 kg/m2 Mary Neal MD Work Phone: [facility] 09-29-2023 14:04-0500 Body weight 99.79 kg Mary Neal MD Work Phone: [facility] 09-29-2023 14:04-0500 Diastolic blood pressure 70 mm[Hg] Mary Neal MD Work Phone: [facility] 09-29-2023 14:04-0500 Heart rate 80 /min Mary Neal MD Work Phone: [facility] 09-29-2023 14:04-0500 Systolic blood pressure 120 mm[Hg] Mary Neal MD Work Phone: [facility] 09-13-2023 15:30-0500 Body height 177.8 cm Jairo Ball Other [facility] 09-13-2023 15:30-0500 Body mass index (BMI) [Ratio] 31.53 kg/m2 Jairo Ball Other [facility] [employer] Other 09-13-2023 15:30-0500 Body weight 99.7 kg Jairo Ball Other [facility] [employer] Other 09-13-2023 15:30-0500 Body weight 99.69 kg DO Jairo Ball Work Phone: [facility] 09-13-2023 15:30-0500 Diastolic blood pressure 84 mm[Hg] Jairo Ball Other [facility] 09-13-2023 15:30-0500 Respiratory rate 12 /min Jairo Ball Other [facility] [employer] Other 09-13-2023 15:30-0500 Systolic blood pressure 126 mm[Hg] Jairo Ball Other [facility] 09-05-2023 14:30-0500 Body height 177.8 cm Karlo Aldridge DIRECTOR OF AVIATION-FUSION ANALYST Work Phone: [facility] 09-05-2023 14:30-0500 Body mass index (BMI) [Ratio] 31.42 kg/m2 Karlo Aldridge DIRECTOR OF AVIATION-FUSION ANALYST Work Phone: [facility] 09-05-2023 14:30-0500 Body weight 99.34 kg Karlo Aldridge DIRECTOR OF AVIATION-FUSION ANALYST Work Phone: [facility] 09-05-2023 14:30-0500 Diastolic blood pressure 76 mm[Hg] Karlo Aldridge DIRECTOR OF AVIATION-FUSION ANALYST Work Phone: [facility] 09-05-2023 14:30-0500 Heart rate 97 /min Karlo Aldridge DIRECTOR OF AVIATION-FUSION ANALYST Work Phone: [facility] 09-05-2023 14:30-0500 Systolic blood pressure 124 mm[Hg] Karlo Aldridge DIRECTOR OF AVIATION-FUSION ANALYST Work Phone: [facility] 09-01-2023 08:17-0500 Body height 179.07 cm DO Jairo Ball Work Phone: [facility] 09-01-2023 08:17-0500 Body temperature 97.7 [degF] DO Jairo Ball Work Phone: [facility] 09-01-2023 08:17-0500 Body weight 100 kg DO Jairo Ball Work Phone: [facility] 09-01-2023 08:17-0500 Diastolic blood pressure 66 mm[Hg] DO Jairo Ball Work Phone: [facility] 09-01-2023 08:17-0500 Heart rate 109 /min DO Jairo Ball Work Phone: [facility] 09-01-2023 08:17-0500 SaO2% (BldA) [Mass fraction] 96 % DO Jairo Ball Work Phone: [facility] 09-01-2023 08:17-0500 Systolic blood pressure 114 mm[Hg] DO Jairo Ball Work Phone: [facility] 06-13-2023 14:47-0400 Body height 177.8 cm Jairo E Ball Work Phone: YF[facility]Ntrlwlambo-Duclyhv y 250 DO Work Phone: 06-13-2023 14:47-0400 Body mass index (BMI) [Ratio] 30.44 kg/m2 Jairo E Ball Work Phone: SD-Ovahhydhra-Sipupeo y 250 DO Work Phone: 06-13-2023 14:47-0400 Body surface area Derived from formula 2.14 m2 Jairo E Ball Work Phone: KX-Iczzfyscvo-Bcwphdt y 250 DO Work Phone: 06-13-2023 14:47-0400 Body weight 96.22 kg Jairo E Ball Work Phone: KC-Jwgegpxtig-Utwbjrx y 250 DO Work Phone: 06-13-2023 14:47-0400 Diastolic blood pressure 78 mm[Hg] Jairo E Ball Work Phone: BC-Yqxwuywnir-Ccjruuf y 250 DO Work Phone: 06-13-2023 14:47-0400 Heart rate 56 /min Jairo E Ball Work Phone: WR-Glqobiuplb-Ivwfhyr y 250 DO Work Phone: 06-13-2023 14:47-0400 Systolic blood pressure 138 mm[Hg] Jairo E Ball Work Phone: KR-Vedbvbnozt-Lhywjrk y 250 DO Work Phone: 05-11-2023 15:00-0400 Body height 177.8 cm Jairo Ball Other [facility] [employer] Other 05-11-2023 15:00-0400 Body mass index (BMI) [Ratio] 29.84 kg/m2 Jairo Ball Other [facility] [employer] Other 05-11-2023 15:00-0400 Body weight 94.35 kg Jairo Ball Other [facility] [employer] Other 05-11-2023 15:00-0400 Diastolic blood pressure 74 mm[Hg] Jairo Ball Other [facility] [employer] Other 05-11-2023 15:00-0400 Systolic blood pressure 136 mm[Hg] Jairo Ball Other [facility] [employer] Other 04-15-2023 11:53-0400 Body height 177.8 cm Jairo E Ball Work Phone: [facility] 250 DO Work Phone: 04-15-2023 11:53-0400 Body mass index (BMI) [Ratio] 29.99 kg/m2 Jairo E Ball Work Phone: [facility] 250 DO Work Phone: 04-15-2023 11:53-0400 Body surface area Derived from formula 2.13 m2 Jairo E Ball Work Phone: [facility] 250 DO Work Phone: 04-15-2023 11:53-0400 Body weight 94.8 kg Jairo E Ball Work Phone: [facility] DO Work Phone: 04-15-2023 11:53-0400 Diastolic blood pressure 72 mm[Hg] Jairo E Ball Work Phone: [facility] 250 DO Work Phone: 04-15-2023 11:53-0400 Heart rate 60 /min Jairo E Ball Work Phone: [facility] 250 DO Work Phone: 04-15-2023 11:53-0400 Systolic blood pressure 124 mm[Hg] Jairo E Ball Work Phone: [facility] 250 DO Work Phone: 03-02-2023 18:36-0400 Body temperature 98.6 [degF] DO Jairo Ball Work Phone: [facility] 03-02-2023 18:36-0400 Diastolic blood pressure 72 mm[Hg] DO Jairo Ball Work Phone: [facility] 03-02-2023 18:36-0400 Heart rate 74 /min DO Jairo Ball Work Phone: [facility] 03-02-2023 18:36-0400 Respiratory rate 18 /min DO Jairo Ball Work Phone: [facility] 03-02-2023 18:36-0400 SaO2% (BldA) [Mass fraction] 96 % DO Jairo Ball Work Phone: [facility] 03-02-2023 18:36-0400 Systolic blood pressure 120 mm[Hg] DO Jairo Ball Work Phone: [facility] 03-02-2023 12:17-0400 Body height 177.8 cm DO Jairo Ball Work Phone: [facility] 03-02-2023 12:17-0400 Body weight 87.4 kg DO Jairo Ball Work Phone: [facility] 03-01-2023 15:15-0400 Body height 177.8 cm Jairo Ball Other [employer] Other 03-01-2023 15:15-0400 Body mass index (BMI) [Ratio] 29.21 kg/m2 Jairo Ball Other [facility] [employer] Other 03-01-2023 15:15-0400 Body weight 92.35 kg Jairo Ball Other [facility] [employer] Other 03-01-2023 15:15-0400 Diastolic blood pressure 67 mm[Hg] Jairo Ball Other [facility] [employer] Other 03-01-2023 15:15-0400 Respiratory rate 12 /min Jairo Ball Other [facility] [employer] Other 03-01-2023 15:15-0400 Systolic blood pressure 106 mm[Hg] Jairo Ball Other [facility] [employer] Other 02-25-2023 12:01-0400 Diastolic blood pressure 74 mm[Hg] DO Jairo Ball Work Phone: [facility] 02-25-2023 12:01-0400 Heart rate 80 /min DO Jairo Ball Work Phone: [facility] 02-25-2023 12:01-0400 Systolic blood pressure 125 mm[Hg] DO Jairo Ball Work Phone: [facility] 02-25-2023 12:00-0400 Respiratory rate 16 /min DO Jairo Ball Work Phone: [facility] 02-25-2023 12:00-0400 SaO2% (BldA) [Mass fraction] 96 % DO Jairo Ball Work Phone: [facility] 02-25-2023 08:00-0400 Body temperature 97.7 [degF] DO Jairo Ball Work Phone: [facility] 02-25-2023 06:10-0400 Body weight 87.4 kg DO Jairo Ball Work Phone: [facility] 02-25-2023 06:07-0400 Inhaled oxygen flow rate 2 L/min DO Jairo Ball Work Phone: [facility] 02-24-2023 13:01-0400 Body height 177.8 cm DO Jairo Ball Work Phone: [facility] 02-08-2023 16:30-0400 Body height 177.8 cm Jairo Ball Other [facility] [employer] Other 02-08-2023 16:30-0400 Body mass index (BMI) [Ratio] 30.19 kg/m2 Jairo Ball Other [facility] [employer] Other 02-08-2023 16:30-0400 Body weight 95.44 kg Jairo Ball Other [facility] [employer] Other 02-08-2023 16:30-0400 Diastolic blood pressure 75 mm[Hg] Jairo Ball Other [facility] [employer] Other 02-08-2023 16:30-0400 Respiratory rate 12 /min Jairo Ball Other [employer] Other 02-08-2023 16:30-0400 Systolic blood pressure 126 mm[Hg] Jairo Ball Other [employer] Other 02-08-2023 15:30-0400 Body height 177.8 cm Jairo Ball Other [employer] Other 02-08-2023 15:30-0400 Body mass index (BMI) [Ratio] 30.19 kg/m2 Jairo Ball Other [employer] Other 02-08-2023 15:30-0400 Body weight 95.44 kg Jairo Ball Other [employer] Other 02-08-2023 15:30-0400 Diastolic blood pressure 75 mm[Hg] Jairo Corbin Other [employer] Other 02-08-2023 15:30-0400 Respiratory rate 12 /min Jairo Corbin Other [employer] Other 02-08-2023 15:30-0400 Systolic blood pressure 126 mm[Hg] Jairo Corbin Other [employer] Other Encounters Encounter Date Encounter Type Care Provider Facility Start: 05-10-2025 End: 05-10-2025 Office outpatient visit 25 minutes Karlo Travis [place] DIRECTOR OF AVIATION-FUSION ANALYST Work Phone: [facility] Comment on above: Medically noncomplia nt (Primary Dx); Non-ischemic cardiomyopathy (Multi); Persistent atrial fibrillation (Multi); 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 Ambulatory Start: 05-01-2025 End: 05-01-2025 ambulatory Jairo Corbin DO Work Phone: [facility] Work Phone: Start: 05-01-2025 End: 05-01-2025 Patient encounter procedure Jairo Corbin DO -[employer] [facility] Work Phone: Start: 05-01-2025 Patient encounter procedure Jairo Corbin DO Work Phone: [facility] Start: 04-22-2025 End: 04-22-2025 Patient encounter procedure Jairo Corbin DO -[employer] [facility] Work Phone: Start: 04-22-2025 End: 04-22-2025 Postop follow up visit related to original px Jairo Wild DO Work Phone: [facility] Comment on above: Status post nasal se ptoplasty (Primary Dx); Chronic congestive 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, unspecified 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 type (HCC) Start: 04-22-2025 End: 04-22-2025 ambulatory Jairo Corbin DO Work Phone: [facility] Work Phone: Start: 04-18-2025 Non-patient / Non-visit Madelinehannah Leahy CMA [facility] Work Phone: Start: 04-16-2025 End: 04-17-2025 Evaluation and management of inpatient Adonay Mai MD -[facility] Work Phone: Start: 04-15-2025 Evaluation and management of inpatient Ziggy Evans MD -[facility] Work Phone: Start: 04-15-2025 observation encounter Jairo Corbin DO Work Phone: [facility] Work Phone: Start: 04-10-2025 End: 04-10-2025 Telephone encounter Jairo Wild DO Work Phone: [facility] Start: 03-25-2025 End: 03-25-2025 Bamboo flowsheet Jairo Wild DO Work Phone: [facility] Start: 03-25-2025 End: 03-25-2025 Bamboo flowsheet Jairo Wild DO Work Phone: [facility] Start: 03-25-2025 End: 03-25-2025 Postop follow up visit related to original px Jairo Wild DO Work Phone: [facility] Comment on above: Status post nasal se ptoplasty (Primary Dx) Start: 03-25-2025 End: 03-25-2025 ambulatory JAIRO WILD Not Available Start: 03-22-2025 End: 03-22-2025 Patient encounter procedure Marty Razo APRN -[facility] Work Phone: Start: 03-11-2025 End: 03-11-2025 ambulatory Jairo Corbin DO Work Phone: [facility] Work Phone: Start: 03-11-2025 End: 03-11-2025 Patient encounter procedure Jairo Corbin DO Work Phone: [facility] Work Phone: Start: 02-20-2025 End: 02-20-2025 Bamboo flowsheet Jairo Wild DO Work Phone: [facility] Start: 02-20-2025 End: 02-20-2025 Bamboo flowsheet Jairo Wild DO Work Phone: [facility] Start: 02-20-2025 End: 02-20-2025 Postop follow up visit related to original px Jairo Wild DO Work Phone: [facility] Comment on above: Status post nasal se ptoplasty (Primary Dx); Obstructive sleep apnea syndrome Start: 02-20-2025 End: 02-20-2025 ambulatory JAIRO WILD Not Available Start: 02-13-2025 End: 02-19-2025 External Result Encounter Jairo Wild DO Work Phone: [facility] Department Unsolicited Start: 02-13-2025 End: 02-19-2025 External Result Encounter Jairo Wild DO Work Phone: [facility] External Department Unsolicited Start: 02-13-2025 End: 02-13-2025 ambulatory Jairo Corbin DO Work Phone: [facility] Work Phone: Start: 02-13-2025 End: 02-13-2025 Departed Referred Jairo Corbin DO Work Phone: [facility] [place] Work Phone: Start: 01-21-2025 End: 01-21-2025 ambulatory [facility] Ambulatory Start: 01-21-2025 End: 01-21-2025 Office outpatient visit 25 minutes Mary Neal MD Work Phone: [facility] Comment on above: 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 con gestive 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, NYHA class 2; Non-ischemic cardiomyopathy (Multi); Medication course changed; Hypertension, benign; Atrial fibrillation, currently in sinus rhythm; Medically noncompliant; Former smoker; Body mass index (BMI) 30.0-30.9, adult; 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 Start: 12-31-2024 End: 12-31-2024 Office outpatient visit 25 minutes Jairo Wild DO Work Phone: [facility] Comment on above: Nasal septal deviati on (Primary Dx); Hypertrophy of nasal turbinates; JANETTE (obstructive sleep apnea); Intolerance of continuous positive airway pressure (CPAP) ventilation Start: 12-31-2024 End: 12-31-2024 ambulatory JAIRO WILD Not Available Start: 12-31-2024 End: 12-31-2024 Bamboo flowsheet Jairo Wild DO Work Phone: [facility] Start: 12-31-2024 End: 12-31-2024 Bamboo flowsheet Jairo Wild DO Work Phone: [facility] Start: 12-25-2024 End: 01-09-2025 Telephone encounter Mao Jesus PT Work Phone: [facility] Comment on above: re: PT today; fu; Fi nal Check Start: 12-25-2024 End: 12-25-2024 Evaluation and management of inpatient Jairo Corbin DO Work Phone: [facility] Work Phone: Start: 12-25-2024 End: 12-25-2024 observation encounter Jairo Corbin DO Work Phone: [facility] Work Phone: Start: 12-25-2024 End: 12-25-2024 ambulatory [facility] Facility:[facility] Start: 12-24-2024 End: 12-24-2024 ambulatory [facility] Work Phone: Start: 12-24-2024 End: 12-24-2024 Patient encounter procedure [facility] Work Phone: Start: 12-10-2024 End: 12-10-2024 ambulatory EDWIN SY Not Available Start: 11-30-2024 End: 11-30-2024 Office outpatient visit 25 minutes Mary Neal MD Work Phone: [facility] Comment on above: Pre-operative examin ation; Medically noncompliant; Medication course changed; 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 congestive 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, NYHA class 2; Atrial fibrillation, currently in sinus rhythm; Abnormal EKG; White coat syndrome with diagnosis of hypertension; skilled nursing current use of 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 therapy; Obstructive sleep apnea syndrome; Non-ischemic cardiomyopathy (Multi); Former smoker; Body mass index (BMI) 30.0-30.9, adult Start: 11-30-2024 End: 11-30-2024 Preprocedural examination done Mary Neal MD Work Phone: [facility] Start: 11-30-2024 End: 11-30-2024 ambulatory [facility] Ambulatory Start: 11-30-2024 End: 11-30-2024 Encounter for other preprocedural examination [facility] Ambulatory Start: 11-28-2024 End: 12-03-2024 Telephone encounter Edwin Sy EMAIL ADMINISTRATOR [facility] Comment on above: Missed PT; FU Start: 11-22-2024 End: 11-22-2024 Bamboo flowsheet Edwin Sy EMAIL ADMINISTRATOR [facility] Start: 11-22-2024 End: 11-22-2024 Bamboo flowsheet Edwin Orozcoink EMAIL ADMINISTRATOR [facility] Start: 11-22-2024 End: 11-22-2024 ambulatory Edwin Sy EMAIL ADMINISTRATOR [facility] Comment on above: Cervical [...] 11-15-2024 End: 11-15-2024 Bamboo flowsheet Edwin Brink EMAIL ADMINISTRATOR [facility] Start: 11-15-2024 End: 11-15-2024 Bamboo flowsheet Edwin Brink EMAIL ADMINISTRATOR [facility] Start: 11-15-2024 End: 11-15-2024 ambulatory Edwin Brink EMAIL ADMINISTRATOR [facility] Comment on above: Cervical paraspinal muscle spasm (Primary Dx) Start: 11-13-2024 End: 11-13-2024 Bamboo flowsheet Edwin Brink EMAIL ADMINISTRATOR [facility] Start: 11-13-2024 End: 11-13-2024 Bamboo flowsheet Edwin Brink EMAIL ADMINISTRATOR [facility] Start: 11-13-2024 End: 11-13-2024 ambulatory Edwin Brink EMAIL ADMINISTRATOR [facility] Comment on above: Cervical [...] 11-06-2024 End: 11-06-2024 Bamboo flowsheet Edwin Brink EMAIL ADMINISTRATOR [facility] Start: 11-06-2024 End: 11-06-2024 Bamboo flowsheet Edwin Brink EMAIL ADMINISTRATOR [facility] Start: 11-06-2024 End: 11-06-2024 ambulatory Edwin Sy EMAIL ADMINISTRATOR [facility] Comment on above: Cervical paraspinal muscle spasm (Primary Dx) Start: 11-01-2024 End: 11-01-2024 Bamboo flowsheet Edwin Sy EMAIL ADMINISTRATOR [facility] Start: 11-01-2024 End: 11-01-2024 Bamboo flowsheet Edwin Sy EMAIL ADMINISTRATOR [facility] Start: 11-01-2024 End: 11-01-2024 ambulatory Edwin Sy EMAIL ADMINISTRATOR [facility] Comment on above: Cervical paraspinal muscle spasm (Primary Dx) Start: 10-30-2024 End: 10-30-2024 Bamboo flowsheet Mao Matoston PT Work Phone: [facility] Start: 10-30-2024 End: 10-30-2024 Bamboo flowsheet Mao Jesus PT Work Phone: [facility] Start: 10-30-2024 End: 10-30-2024 ambulatory Mao Jesus PT Work Phone: [facility] Comment on above: Cervical paraspinal muscle spasm (Primary Dx) Start: 10-25-2024 End: 10-25-2024 Bamboo flowsheet Mao Matoston PT Work Phone: [facility] Start: 10-25-2024 End: 10-25-2024 Bamboo flowsheet Mao Matoston PT Work Phone: [facility] Start: 10-25-2024 End: 10-25-2024 ambulatory Mao Matoston PT Work Phone: [facility] Comment on above: Cervical paraspinal muscle spasm (Primary Dx) Start: 10-23-2024 End: 10-23-2024 Bamboo flowsheet Mao Krupa Matoston PT Work Phone: [facility] Start: 10-23-2024 End: 10-23-2024 Bamboo flowsheet Mao T Blackston PT Work Phone: [facility] Start: 10-23-2024 End: 10-23-2024 ambulatory Mao T Shawnaaldair PT Work Phone: [facility] Comment on above: Cervical paraspinal muscle spasm (Primary Dx) Start: 10-18-2024 End: 10-18-2024 Bamboo flowsheet Edwin Brink EMAIL ADMINISTRATOR [facility] Start: 10-18-2024 End: 10-18-2024 Bamboo flowsheet Edwin Brink EMAIL ADMINISTRATOR [facility] Start: 10-18-2024 End: 10-18-2024 ambulatory Edwin Brink EMAIL ADMINISTRATOR [facility] Comment on above: Cervical paraspinal muscle spasm (Primary Dx) Start: 10-15-2024 End: 10-15-2024 Bamboo flowsheet Edwin Brink EMAIL ADMINISTRATOR [facility] Start: 10-15-2024 End: 10-15-2024 Bamboo flowsheet Edwin Brink EMAIL ADMINISTRATOR [facility] Start: 10-15-2024 End: 10-15-2024 ambulatory Edwin Brink EMAIL ADMINISTRATOR [facility] Comment on above: Cervical paraspinal muscle spasm (Primary Dx) Start: 10-09-2024 End: 10-09-2024 Bamboo flowsheet Alia Escobary EMAIL ADMINISTRATOR [facility] Start: 10-09-2024 End: 10-09-2024 Bamboo flowsheet Alia Escobary EMAIL ADMINISTRATOR [facility] Start: 10-09-2024 End: 10-09-2024 ambulatory Alia Escobary EMAIL ADMINISTRATOR [facility] Comment on above: Cervical paraspinal muscle spasm (Primary Dx) Start: 10-01-2024 End: 10-01-2024 Bamboo flowsheet Mao Krupa Shawnaaldair PT Work Phone: [facility] Start: 10-01-2024 End: 10-01-2024 Bamboo flowsheet Mao Krupa Shawnaaldair PT Work Phone: [facility] Start: 10-01-2024 End: 10-01-2024 ambulatory Mao Krupa Shawnaaldair PT Work Phone: [facility] Comment on above: Cervical paraspinal muscle spasm (Primary Dx) Start: 09-27-2024 End: 09-27-2024 Bamboo flowsheet Edwin Brink EMAIL ADMINISTRATOR [facility] Start: 09-27-2024 End: 09-27-2024 Bamboo flowsheet Edwin Brink EMAIL ADMINISTRATOR [facility] Start: 09-27-2024 End: 09-27-2024 ambulatory Edwin Brink EMAIL ADMINISTRATOR [facility] Comment on above: Cervical paraspinal muscle spasm (Primary Dx) Start: 09-21-2024 End: 09-21-2024 ambulatory Jairo Ball Facility:[facility] Start: 09-20-2024 End: 09-20-2024 Bamboo flowsheet Edwin Brink EMAIL ADMINISTRATOR [facility] Start: 09-20-2024 End: 09-20-2024 Bamboo flowsheet Edwin Brink EMAIL ADMINISTRATOR [facility] Start: 09-20-2024 End: 09-20-2024 ambulatory Edwin Brink EMAIL ADMINISTRATOR [facility] Comment on above: Cervical [...] 09-13-2024 End: 09-13-2024 Bamboo flowsheet Edwin Brink EMAIL ADMINISTRATOR [facility] Start: 09-13-2024 End: 09-13-2024 Bamboo flowsheet Edwin Brink EMAIL ADMINISTRATOR [facility] Start: 09-13-2024 End: 09-13-2024 ambulatory Edwin Brink EMAIL ADMINISTRATOR [facility] Comment on above: Cervical paraspinal muscle spasm (Primary Dx) Start: 09-11-2024 End: 09-11-2024 Bamboo flowsheet Mao Jesus PT Work Phone: [facility] Start: 09-11-2024 End: 09-11-2024 Bamboo flowsheet Mao Jesus PT Work Phone: [facility] Start: 09-11-2024 End: 09-11-2024 ambulatory Mao Jesus PT Work Phone: [facility] Comment on above: Cervical paraspinal muscle spasm (Primary Dx) Start: 08-08-2024 End: 08-08-2024 ambulatory [facility] Ambulatory Start: 07-30-2024 End: 07-30-2024 Office outpatient visit 25 minutes Mary Neal MD Work Phone: [facility] Comment on above: Non-ischemic cardiom yopathy (Multi); Persistent atrial fibrillation (Multi); Hypertension, benign; 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 congestive 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, NYHA class 2; 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; BMI 31.0-31.9,adult; Former smoker; Lipid screening Start: 07-30-2024 End: 07-30-2024 ambulatory [facility] Ambulatory Start: 06-22-2024 Non-patient / Non-visit DO Pedro Corbin Work Phone: [facility] Physician [facility] Work Phone: Start: 06-22-2024 End: 06-22-2024 Admission to same day surgery center DO Jairo Corbin Work Phone: [facility] Work Phone: Start: 06-22-2024 End: 06-22-2024 ambulatory DO Jairo Corbin Work Phone: [facility] Work Phone: Start: 05-30-2024 End: 05-30-2024 ambulatory [facility] Work Phone: Start: 05-30-2024 End: 05-30-2024 Patient encounter procedure [facility] Physician [facility] Work Phone: Start: 05-10-2024 Non-patient / Non-visit [facility] Physician [facility] [place] Work Phone: Start: 05-01-2024 End: 05-01-2024 ambulatory [facility] Work Phone: Start: 05-01-2024 End: 05-01-2024 Patient encounter procedure [facility] Phys[facility] Work Phone: Start: 03-23-2024 Non-patient / Non-visit [facility] Physician [facility] [place] Work Phone: Start: 02-11-2024 End: 02-12-2024 ambulatory [facility] Start: 02-11-2024 End: 02-11-2024 Subsequent hospital visit by physician Ashli Fabian Echo/Vasc Room 2 [facility] Comment on above: 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 con gestive 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, NYHA class 2 (Multi); Persistent atrial fibrillation (Multi); Non-ischemic cardiomyopathy (Multi) Start: 01-31-2024 End: 01-31-2024 ambulatory [facility] Work Phone: Start: 01-31-2024 End: 01-31-2024 Patient encounter procedure [facility] Phys[facility] Work Phone: Start: 01-30-2024 Encounter for other preprocedural examination [facility] Ambulatory Start: 01-30-2024 End: 01-30-2024 Office outpatient visit 25 minutes Mary Neal MD Work Phone: [facility] Comment on above: 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 con gestive 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, NYHA class 2 (Multi); Persistent atrial fibrillation (Multi); Pre-operative examination; Former smoker; BMI 31.0-31.9,adult; Coronary artery disease involving chenega coronary artery of chenega heart without angina pectoris; Sinus bradycardia; Non-ischemic cardiomyopathy (Multi); Hypertension, benign Start: 01-30-2024 End: 01-30-2024 Preprocedural examination done Mary Neal MD Work Phone: [facility] Start: 11-10-2023 End: 11-10-2023 Office outpatient visit 25 minutes Mary Neal MD Work Phone: [facility] Comment on above: Hospital discharge f ollow-up; Persistent atrial fibrillation (CMS/HCC); skilled nursing current use of 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 therapy; Non-ischemic cardiomyopathy (CMS/HCC); 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 congestive 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, NYHA class 2 (CMS/HCC); Coronary artery disease involving chenega coronary artery of chenega heart without angina pectoris; Hypertension, benign; Former smoker Start: 11-01-2023 End: 11-01-2023 Patient encounter procedure DO Jairo Corbin Work Phone: [facility]- Start: 10-26-2023 End: 10-26-2023 ambulatory Jairo Corbin Other [employer] Other Start: 10-26-2023 Telephone encounter [facility] Start: 10-21-2023 Non-patient / Non-visit DO Pedro Corbin Work Phone: [facility] Physician [facility] Work Phone: Start: 10-12-2023 Chart abstracting Scanning Pro [employer] External [facility] Start: 09-29-2023 End: 09-29-2023 Office outpatient visit 25 minutes Mary Neal MD Work Phone: [facility] Comment on above: Persistent atrial fi brillation (CMS/HCC); Paroxysmal atrial fibrillation (CMS/HCC); Non-ischemic cardiomyopathy (CMS/HCC); 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 congestive 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, NYHA class 2 (CMS/HCC); Coronary artery disease involving chenega coronary artery of chenega heart without angina pectoris; SOB (shortness of breath); Hypertension, benign; skilled nursing current use of 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 therapy; Obstructive sleep apnea syndrome; Former smoker; Obesity (BMI 30.0-34.9); Personal history of COVID-19; Dilated cardiomyopathy (CMS/HCC); Medication course changed Start: 09-13-2023 Office outpatient vi sit 25 minutes Jairo VALADEZ [facility] Start: 09-13-2023 End: 09-13-2023 ambulatory DO Jairo Corbin Work Phone: [facility] [employer] Other Start: 09-13-2023 End: 09-13-2023 Departed Referred DO Jairo Corbin Work Phone: [facility] [place] Start: 09-13-2023 End: 09-13-2023 Patient encounter procedure DO Jairo Corbin Work Phone: [facility] Work Phone: Start: 09-10-2023 End: 09-10-2023 ambulatory Jairo Corbin Other [facility] [employer] Other Start: 09-10-2023 Telephone encounter [facility] Start: 09-07-2023 End: 09-07-2023 ambulatory Jairo Corbin Other [facility] [employer] Other Start: 09-07-2023 Telephone encounter [facility] Start: 09-05-2023 End: 09-05-2023 Office outpatient visit 25 minutes Karlo Aldridge DIRECTOR OF AVIATION-FUSION ANALYST Work Phone: [facility] Comment on above: Dilated cardiomyopat hy (CMS/HCC) (Primary Dx); Paroxysmal atrial fibrillation (CMS/HCC); Hypertension, benign; Obstructive sleep apnea syndrome; Class 1 obesity due to excess calories with serious comorbidity and body mass index (BMI) of 30.0 to 30.9 in adult; 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 Jairo Corbin Facility: Start: 06-13-2023 Office outpatient vi sit 15 minutes Jairo Corbin Work Phone: [facility] 600 DO Work Phone: Start: 06-13-2023 Patient encounter procedure Jairo Corbin Work Phone: [facility] 250 DO Work Phone: Start: 05-12-2023 Chart Update Jairo julian Work Phone: [facility] 250 DO Work Phone: Start: 05-11-2023 End: 05-11-2023 ambulatory Jairo Corbin Other [facility] [employer] Other Start: 05-11-2023 Office outpatient vi sit [address] [facility] Start: 05-05-[address] Jairo Corbin Facility:[id number] Start: 04-20-2023 Image Encounter Jairo julian Work Phone: [facility] 250 DO Work Phone: Start: 04-15-2023 Telephone encounter Jairo PATRICIA G [facility] Start: 04-15-2023 Office outpatient vi sit 40 minutes Jairo Corbin Work Phone: [facility] 250 DO Work Phone: Start: 04-15-2023 End: 04-15-[address] Jairo Corbin [facility] [employer] Other Start: 04-12-2023 End: 04-12-2023 ambulatory Jairo Corbin Other [facility] [employer] Other Start: 04-12-2023 Telephone encounter Jairo Corbin FP G [facility] Start: 03-22-2023 Telephone encounter Jorge jiménez DO Work Phone: [facility] 250 DO Work Phone: Start: 03-06-2023 End: 03-06-2023 ambulatory Jairo Corbin Other [facility] [employer] Other Start: 03-06-2023 Telephone encounter Jairo Corbin FP G [facility] Start: 03-02-2023 Telephone encounter Jairo Corbin BELEM G [facility] Start: 03-02-2023 End: 03-02-2023 Admission to same day surgery center DO Jairo Shaquille Work Phone: [facility]-Energy Advisor Work Phone: Start: 03-02-2023 End: 03-02-2023 ambulatory DO Jairo Shaquille Work Phone: [facility] Work Phone: Start: 03-02-[address] Jorge Lucio Facility:[id number] Start: 03-01-2023 Transitional care manage srvc 14 day discharge Jairo Corbin [facility] Start: 03-01-2023 End: 03-02-[address] JAIRO CORBIN [facility] [employer] Other Start: 02-25-2023 Message Jorge mcadams DO Work Phone: [facility] 250 DO Work Phone: Start: 02-25-[address] Jairo Corbin Facil ity:[facility] Start: 02-25-[address] Jairo Corbin Facil ity:[id number] Start: 02-24-[address] Jairo Corbin Facility:[id number] Start: 02-23-2023 End: 02-25-2023 Evaluation and management of inpatient DO Jairo Shaquille Work Phone: [facility] [place] [facility] Work Phone: Start: 02-19-2023 End: 02-20-[address] JAIRO CORBIN Facility:[id number] Start: 02-09-2023 End: 02-09-2023 ambulatory Jairo Shaquille Other [employer] Other Start: 02-09-2023 Telephone encounter Jairo Corbin FP [facility] Start: 02-08-2023 End: 02-08-2023 ambulatory Jairo Corbin Other [employer] Other Start: 02-08-2023 Patient encounter procedure Jairo Corbin [facility] Start: 02-01-2023 End: 02-01-2023 ambulatory Jairo Shaquille Other [employer] Other Start: 02-01-2023 Telephone encounter Jairo Corbin FP [facility] Start: 12-15-2022 End: 12-15-2022 ambulatory Jairo Corbin Other [employer] Other Start: 12-15-2022 Office outpatient vi sit 15 minutes Jairo Corbin [facility] Start: 12-15-2022 Telephone encounter Jairo Corbin FP [facility] Start: 12-10-2022 End: 12-10-2022 ambulatory Jairo Corbin Other [employer] Other Start: 12-10-2022 Office outpatient vi sit 15 minutes Jairo Corbin [facility] Start: 11-27-2022 End: 11-27-2022 ambulatory Jairo Corbin Other [employer] Other Start: 11-27-2022 Telephone encounter Jairo Corbin FP [facility] Start: 06-01-2022 End: 06-02-[address] JAIRO CORBIN Facility:[id number] Procedures Date Procedure Procedure Detail Performing Clinician Start: 04-15-2025 Plain chest X-ray Jairo Corbin DO Work Phone: Start: 02-13-2025 PATHOLOGY REQUEST FOR LAB RICHARD Jairo Wild DO Work Phone: Start: 02-28-2025 Ecg routine ecg w/least 12 lds w/i&r Mary Neal MD Work Phone: Start: 10-03-2024 H/O: surgery Hx of nasal septoplasty Jairo Corbin DO Work Phone: Start: 06-22-2024 Esophagogastroduodenoscopy DO Jairo B all Work Phone: Start: 02-11-2024 TRANSTHORACIC ECHO (TTE) COMPLETE MARY NEAL Start: 01-30-2024 Ecg routine ecg w/least 12 lds w/i&r Mary Neal MD Work Phone: Start: 09-07-2023 Ecg routine ecg w/least 12 lds w/i&r Karlo Aldridge DIRECTOR OF AVIATION-FUSION ANALYST Work Phone: Start: 08-24-2023 NM HEART BLOOD POOL EJECTION FRACTION WALL MOTION (MUGA) MARY NEAL Start: 08-24-2023 NM HEART BLOOD POOL EJECTION FRACTION WALL MOTION (MUGA) MARY NEAL Start: 03-02-2023 CL LHC & COR Angio DO Jairo Corbin Work Phone: Start: 02-23-2023 Plain chest X-ray DO Jairo Corbin Work Phone: Amputation and disar ticulation of finger Jairo E Ball Work Phone: Cholecystectomy Jairo E B all Work Phone: H/O: surgery Status post nasa l septoplasty Jairo Barros Mursanamk DO Work Phone: H/O: surgery Status post nasa l septoplasty Jairo W Murcek DO Work Phone: H/O: surgery Status post nasa l septoplasty Jairo W Murcek DO Work Phone: Operation on liver Jairo E Ball Work Phone: Procedure on neck Jairo E Ball Work Phone: Renal lithotripsy Jairo E Ball Work Phone: Repair of musculoten dinous cuff of shoulder Jairo E Ball Work Phone: Repair of shoulder Jairo E Ball Work Phone: Total colonoscopy Jairo Corbin Work Phone: Comment on above: unsure of date; Plan of Treatment Date Care Activity Detail Author Start: 04-16-2026 Echocardiography Echocardiogram [facility] Start: 07-29-2025 End: 07-29-2025 Patient encounter procedure 07/29/2025 12:30 PM EDT Office Visit [facility] [address] [facility] [address] [place] [address] Mary Neal MD [address] [facility] [address] [place] [address] [facility] Start: 06-27-2025 DTaP,Tdap and Td Vaccines (2 - Td or Tdap) DTaP,Tdap and Td Vaccines (2 - Td or Tdap) [facility] [employer] Start: 06-27-2025 DTaP/Tdap/Td Vaccines (2 - Td or Tdap) DTaP/Tdap/Td Vaccines (2 - Td or Tdap) [facility] Start: 06-03-2025 Influenza vaccination [facility] Start: 04-30-2025 [facility] Start: 04-29-2025 [facility] Start: 04-28-2025 [facility] Start: 04-27-2025 [facility] Start: 04-26-2025 [facility] Start: 04-25-2025 [facility] Start: 04-24-2025 [facility] Start: 04-23-2025 [facility] Start: 04-22-2025 [facility] Start: 04-21-2025 [facility] Start: 04-20-2025 [facility] Start: 04-19-2025 [facility] Start: 04-18-2025 [facility] Start: 04-17-2025 End: 04-17-2025 [facility] Start: 04-16-2025 [facility] Start: 04-16-2025 Referral to astronaut mission specialist [facility] Start: 04-16-2025 [facility] Start: 04-15-2025 Hospital admission [facility] Start: 03-25-2025 End: 03-25-2025 Patient encounter procedure [facility] Comment on above: Arrived Start: 02-20-2025 End: 02-20-2025 Patient encounter procedure [facility] Comment on above: Arrived Start: 02-13-2025 [facility] Start: 02-10-2025 Echocardiography Echocardiogram [facility] Start: 01-31-2025 End: 01-31-2025 Patient encounter procedure 01/31/2025 1:00 PM EDT Office Visit [facility] [address] [facility] [address] [place] [address] Mary Neal MD [address] [facility] [address] [place] [address] [facility] Start: 12-31-2024 End: 12-31-2024 Patient encounter procedure 12/31/2024 4:00 PM EDT Office Visit [facility] [address] [place] [place] [id number] Jairo Wild, [address] [place] [address] Arrived [facility] VARGASY Comment on above: Arrived Start: 12-25-2024 [facility] Start: 12-25-2024 Sleep disorder assessment [facility] Start: 12-25-2024 Referral to astronaut mission specialist [facility] Start: 12-25-2024 Hospital admission [facility] Start: 12-10-2024 End: 12-10-2024 ambulatory 12/10/2024 10:00 AM EDT Treatment [facility] [address] [place] [address] Edwin Sy, EMAIL ADMINISTRATOR [facility] Start: 11-28-2024 End: 11-28-2024 ambulatory 11/28/2024 10:00 AM EST Treatment [facility] [address] [place] [address] Edwin Sy, EMAIL ADMINISTRATOR [facility] Start: 11-22-2024 End: 11-22-2024 ambulatory [facility] Comment on above: Arrived Start: 11-20-2024 End: 11-20-2024 ambulatory [facility] Comment on above: Arrived Start: 11-15-2024 End: 11-15-2024 ambulatory 11/15/2024 11:30 AM EST Treatment [facility] [address] [place] [address] Edwin Sy, EMAIL ADMINISTRATOR [facility] Start: 11-13-2024 End: 11-13-2024 ambulatory [facility] Comment on above: Arrived Start: 11-08-2024 End: 11-08-2024 ambulatory 11/08/2024 9:00 AM EST Treatment [facility] [address] [place] [address] Mao Jesus, PT [address] [place] [address] [facility] Start: 11-06-2024 End: 11-06-2024 ambulatory [facility] Comment on above: Arrived Start: 11-01-2024 End: 11-01-2024 ambulatory [facility] Comment on above: Arrived Start: 10-30-2024 End: 10-30-2024 ambulatory [facility] Comment on above: Arrived Start: 10-25-2024 End: 10-25-2024 ambulatory 10/25/2024 9:00 AM EST Treatment [facility] [address] [place] [address] Mao Jesus, PT [address] [place] [address] [facility] Start: 10-23-2024 End: 10-23-2024 ambulatory 10/23/2024 9:00 AM EST Treatment [facility] [address] [place] [address] Mao Jesus, PT [address] [place] [address] [facility] Start: 10-21-2024 [facility] Start: 10-18-2024 End: 10-18-2024 ambulatory [facility] Comment on above: Arrived Start: 10-15-2024 End: 10-15-2024 ambulatory [facility] Comment on above: Arrived Start: 10-11-2024 End: 10-11-2024 ambulatory 10/11/2024 9:30 AM EST Treatment [facility] [address] [facility] [address] [place] [address] Alia Hopkins, EMAIL ADMINISTRATOR [facility] Start: 10-09-2024 End: 10-09-2024 ambulatory [facility] Comment on above: Arrived Start: 10-01-2024 End: 10-01-2024 ambulatory [facility] Comment on above: Arrived Start: 09-27-2024 End: 09-27-2024 ambulatory 09/27/2024 9:00 AM EST Treatment [facility] [address] [facility] [address] [place] [address] Edwin Sy EMAIL ADMINISTRATOR [facility] Start: 09-24-2024 End: 09-24-2024 ambulatory 09/24/2024 8:30 AM EST Treatment [facility] [address] [facility] [address] [place] [address] Mao Jesus, PT [address] [place] [address] [facility] Start: 09-20-2024 End: 09-20-2024 ambulatory [facility] Comment on above: Arrived Start: 09-17-2024 End: 09-17-2024 ambulatory 09/17/2024 8:00 AM EST Treatment [facility] [address] [place] [address] Mao Jesus, PT [address] [facility] [address] [place] [address] [facility] Start: 09-13-2024 End: 09-13-2024 ambulatory [facility] Comment on above: Arrived Start: 09-11-2024 End: 09-11-2024 ambulatory 09/11/2024 8:30 AM EST Evaluation [facility] [address] [facility] [address] [place] [address] ShawnaaldairMao, PT [address] [facility] [address] [place] [address] Arrived [facility] Comment on above: Arrived Start: 08-08-2024 End: 08-08-2024 Professional / ancillary services management 08/08/2024 1:00 PM EST Ancillary Procedure [facility] [address] [facility] [address] [place] [address] [facility] Start: 07-30-2024 End: 07-30-2025 CBC panel - Blood by Automated count CBC Lab Routine Non-ischemic cardiomyopathy (Multi) Expected: 07/30/2024, Expires: 07/30/2025 [facility] Work Phone: Comment on above: Expected: 07/30/2024, Expires: Start: 07-30-2024 End: 07-30-2025 Comprehensive metabolic 2000 panel - Serum or Plasma Comprehensive Metabolic Panel Lab Routine Non-ischemic cardiomyopathy (Multi) Expected: 07/30/2024, Expires: 07/30/[address] [facility] Service Area Work Phone: Comment on above: Expected: 07/30/2024, Expires: Start: 07-30-2024 End: 07-30-2025 Holter monitor study Holter Or Event Agronomy Supervisor Cardiac Services Routine Persistent atrial fibrillation (Multi) Expected: 07/30/2024 (Approximate), Expires: 07/30/2025 [facility] Work Phone: Comment on above: Expected: 07/30/2024 (Approximate), Expi res: 07/30/2025 Start: 06-22-2024 End: 06-22-2024 [facility] Start: 06-03-2024 COVID-19 Vaccine ( season) COVID-19 Vaccine () [facility] Start: 06-03-2024 Influenza vaccination [facility] Start: 05-01-2024 Patient referral [facility] Work Phone: Start: 03-26-2024 End: 03-26-2024 Patient encounter procedure 03/26/2024 1:15 PM EDT Office Visit [facility] [address] [place] [address] Mary Neal MD [address] [place] [address] [facility] Start: 02-25-2024 Echocardiography Echocardiogram [facility] Start: 02-11-2024 End: 02-11-2024 Patient encounter procedure 02/11/2024 1:30 PM EDT Appointment [facility] [address] [place] [address] [facility] Start: 02-02-2024 End: 02-02-2024 Patient encounter procedure 02/02/2024 12:30 PM EDT Office Visit [facility] [address] [place] [address] Mary Neal MD [address] [place] [address] [facility] Start: 01-30-2024 End: 01-29-2026 Heart Transthoracic Transthoracic Echo Complete Echocardiography Routine 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 congestive 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, NYHA class 2 (Multi) Persistent atrial fibrillation (Multi) Non-ischemic cardiomyopathy (Multi) Expected: 01/30/2024 (Approximate), Expires: 01/29/2026 [facility] Work Phone: Comment on above: Expected: 01/30/2024 (Approximate), Expi res: 01/29/2026 Start: 11-17-2023 End: 11-10-2024 Basic metabolic 2000 panel - Serum or Plasma Basic Metabolic Panel Lab Routine 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 congestive 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, NYHA class 2 (CMS/HCC) Persistent atrial fibrillation (CMS/HCC) Hypertension, benign Expected: 11/17/2023 (Approximate), Expires: 11/10/2024 [facility] Work Phone: Comment on above: Expected: 11/17/2023 (Approximate), Expi res: 11/10/2024 Start: 11-10-2023 End: 11-10-2023 Patient encounter procedure 11/10/2023 1:45 PM EST Office Visit [facility] [address] [facility] [address] [place] [address] Mary Neal MD [address] [facility] [address] [place], [place] [id number] [facility] Start: 10-24-2023 End: 10-24-2023 [facility] Start: 10-23-2023 [facility] Start: 10-22-2023 Thiamine [Moles/volume] in Blood [facility] Start: 10-22-2023 [facility] Start: 10-21-2023 Hospital admission [facility] Start: 10-21-2023 Referral to astronaut mission specialist [facility] Start: 10-21-2023 [facility] Start: 10-19-2023 End: 10-19-2023 Patient encounter procedure 10/19/2023 9:00 AM EST Office Visit [facility] [address] [place] [address] Ceci Fuller MD [address] [place] [address] [facility] Start: 09-29-2023 End: 09-29-2023 Patient encounter procedure 09/29/2023 1:45 PM EST Office Visit [facility] [address] [facility] [address] [place] [address] Mary Neal MD [address] [place] [address] [address] [place] [address] [facility] Start: 09-15-2023 MUGA, Provider: CAREN HHVI NUCLEAR 01,[id number], Status: Pen, Time: 2:30 PM MUGA, Provider: CAREN HHVI NUCLEAR 01,[id number], Status: Pen, Time: 2:30 PM DU-Jmjqmmstmg-Tkquz erick 250 DO Work Phone: Start: 09-15-2023 EKG, Provider: SARI SANTANA ROUSTABOUT CREW LEADER 1,[id number], Status: Pen, Time: 2:15 PM EKG, Provider: SARI SANTANA ROUSTABOUT CREW LEADER 1,[id number], Status: Pen, Time: 2:15 PM UU-Kibagtsllj-Mpguw erick 250 DO Work Phone: Start: 09-13-2023 Nasal septoplasty OR Nasal Septoplasty/Poss Turbinates (Bilateral) [facility] Start: 07-21-2023 FUV, Provider: Jorge Lucio, Status: Pen, Time: 11:10 AM FUV, Provider: Jorge Lucio, Status: Pen, Time: 11:10 AM [facility] 250 DO Work Phone: Start: 06-03-2023 COVID-19 Vaccine ( season) COVID-19 Vaccine ( season) [facility] Start: 06-03-2023 Influenza vaccination [facility] Start: 05-05-2023 MUGA, Provider: CAREN HHVI NUCLEAR 01,[id number], Status: Pen, Time: 2:30 PM MUGA, Provider: CAREN HHVI NUCLEAR 01,[id number], Status: Pen, Time: 2:30 PM [facility] 250 DO Work Phone: Start: 04-15-2023 FUV, Provider: Jorge Lucio, Status: Pen, Time: 11:00 AM FUV, Provider: Jorge Lucio, Status: Pen, Time: 11:00 [facility] 250 DO Work Phone: Start: 03-02-2023 [facility] Start: 02-25-2023 [facility] Start: 02-24-2023 Referral to astronaut mission specialist [facility] Start: 02-24-2023 Sleep disorder assessment [facility] Start: 02-23-2023 Hospital admission [facility] Start: 03-03-2022 Pneumococcal vaccination Pneumococcal Vaccine (3 of 3 - PCV20 or PCV21) [facility] Start: 03-03-2022 Pneumococcal Vaccine: 65+ Years (3 - PPSV23 or PCV20) Pneumococcal Vaccine: 65+ Years (3 - PPSV23 or PCV20) [facility] Start: 03-03-2022 Pneumococcal Vaccine: 65+ Years (3 of 3 - PPSV23 or PCV20) Pneumococcal Vaccine: 65+ Years (3 of 3 - PPSV23 or PCV20) [facility] Start: 2019 Abdominal aortic aneurysm screening Abdominal Aortic Aneurysm (AAA) Screening [facility] Start: 2019 Fall Risk Screening Fall Risk Screening [facility] [employer] Start: 09-06-2018 MMR Vaccines (1 of 1 - Standard series) MMR Vaccines (1 of 1 - Standard series) [facility] Start: 2014 RSV High Risk: (Elderly (60+) or Population) (1 - Risk 60-74 years 1-dose series) RSV High Risk: (Elderly (60+) or Population) (1 - Risk 60-74 years 1-dose series) [facility] Start: 2014 RSV patients and/or patients aged 60+ years (1 - 1-dose 60+ series) RSV patients and/or patients aged 60+ years (1 - 1-dose 60+ series) [facility] Start: 10-05-2013 Administration of varicella zoster vaccine Zoster (Shingles) Vaccine (2 of 3) [email or web address] Start: 10-05-2013 Zoster Vaccines (2 of 3) Zoster Vaccines (2 of 3) [facility] Start: 1972 Adult BMI Screening Adult BMI Screening [facility] Start: 1972 Diabetes mellitus screening Diabetes Screening [facility] Start: 1972 Hepatitis C screening Hepatitis C Screening [facility] Start: 1966 Depression Screening Depression Screening [facility] Start: 1966 Tobacco Screening Tobacco Screening [facility] Start: 1954 COVID-19 Vaccine (#1) COVID-19 Vaccine (#1) [facility] Start: 1954 Creatinine measurement Creatinine Level [facility] Start: 1954 Lipid panel Lipid Panel [facility] Start: 1954 Medicare Annual Wellness Visit [facility] Start: 1954 Potassium measurement Potassium Level [facility] Start: 1954 Screening for malignant neoplasm of colon [facility] aPTT in Platelet poo r plasma by Coagulation assay [facility] Comprehensive metabo lic 1999 panel - Serum or Plasma [facility] Comprehensive metabo lic 1999 panel - Serum or Plasma [facility] ECG 12 Lead ECG 12 Lead ECG Routine Paroxysmal atrial fibrillation (CMS/HCC) 09/07/2023 10:[address] [facility] Service Area Work Phone: INR in Platelet poor plasma by Coagulation assay [facility] INR in Platelet poor plasma by Coagulation assay [facility] Patient Education [facility] Work Phone: Patient referral [facility] Work Phone: Prothrombin time (PT) [facility] Prothrombin time (PT) [facility] End: 02-11-2024 US Heart Transthoracic [facility] Service Area Work Phone: Comment on above: Once for 1 Occurrences starting 02/11/20 24 until 02/11/2024 [facility] Immunizations Immunization Date Immunization Notes Care Provider Fa cilicortney 07-06-2019 Seasonal trivalent influenza vaccine, adjuvanted, preservative free Jorge Lucio DO Work Phone: [facility] 250 DO Work Phone: 07-06-2019 influenza virus vaccine, unspecified formulation Karlo Aldridge DIRECTOR OF AVIATION-FUSION ANALYST Work Phone: [facility] Work Phone: 08-09-2018 influenza, live, intranasal, quadrivalent Jorge Lucio DO Work Phone: [facility] [employer] 250 DO Work Phone: 09-01-2017 influenza, seasonal, injectable, preservative free Jorge Lucio DO Work Phone: [facility] [employer] 250 DO Work Phone: 03-03-2017 pneumococcal polysaccharide vaccine, 23 valent Jairo Corbin Other [employer] Other 06-27-2015 influenza, seasonal, injectable, preservative free Jorge Lucio DO Work Phone: [facility] [employer] 250 DO Work Phone: 06-27-2015 pneumococcal conjuga te vaccine, 13 valent Jorge Lucio DO Work Phone: [facility] DO Work Phone: 06-27-2015 tetanus toxoid, redu parth diphtheria toxoid, and acellular pertussis vaccine, adsorbed Jorge Lucio DO Work Phone: [facility] [employer] 250 DO Work Phone: 08-10-2013 zoster vaccine, live Jorge Lucio DO Work Phone: [facility] [employer] 250 DO Work Phone: 08-10-2013 zoster vaccine, unspecified formulation [facility] 08-08-2013 influenza, seasonal, injectable Jorge Lucio DO Work Phone: [facility] 250 DO Work Phone: 01-21-2009 hepatitis A and hepatitis B vaccine Jorge Lucio DO Work Phone: [facility] [facility]2008 hepatitis A and hepatitis B vaccine Jorge Lucio DO Work Phone: [facility] 04-03-2008 hepatitis A and hepatitis B vaccine Jorge Lucio DO Work Phone: [facility] Payers Date Payer Category Payer Self-pay [id number] 2020 Miscellaneous or Other [facility] [id number] .[id number] 5 2020 Private Health Insurance [id number] .[id number] .[id number] 5 2020 Unknown [id number] 2020 Unknown [id number] 2020 Medicare [id number]. 1.13.647 .2.7.3.106924.315 1959 Medicare [id number] 2.16.840.1.539755.19 1959 Unknown [id number] 2.16.840.1.327048.19 1954 Unknown [id number] 2.16.840.1.744475.3.579 .2.593 1954 Unknown [id number] 2.16.840.1.034983.3.579 .2.593 1954 Unknown [id number] 2.16.840.1.740457.3.579 .2.593 1954 Unknown [id number] 2.16.840.1.016820.3.579 .2.1068 1954 Unknown [id number] 2.16.840.1.599098.3.579 .2.356 1954 Unknown [id number] 2.16.840.1.685015.3.579 .2.356 1954 Unknown [id number] 2.16.840.1.684751.3.579 .2.356 1954 Unknown [id number] 2.16.840.1.454244.3.579 .2.356 1954 Unknown [id number] 2.16.840.1.781931.3.579 .2.356 1954 Unknown [id number] 2.16.840.1.920376.3.579 .2.1246 1954 Unknown [id number] 2.16.840.1.755878.3.579 .2.1246 1954 Unknown [id number] 2.16.840.1.869789.3.579 .2.1246 1954 Unknown [id number] 2.16.840.1.332907.3.579 .2.1246 1954 Unknown [id number] 2.16.840.1.344952.3.579 .2.1246 1954 Unknown [id number] 2.16.840.1.208680.3.579 .2.1259 1954 Unknown [id number] 2.16.840.1.045398.3.579 .2.1259 1954 Unknown [id number] 2.16.840.1.332408.3.579 .2.1258 1954 Unknown [id number] 2.16.840.1.255093.3.579 .2.1258 1954 Unknown [id number] 2.16.840.1.929481.3.579 .2.1258 1954 Unknown [id number] 2.16.840.1.465746.3.579 .2.1258 1954 Unknown [id number] 2.16.840.1.121446.3.579 .2.1258 1954 Unknown [id number] 2.16.840.1.203998.3.579 .2.1258 1954 Unknown [id number] 2.16.840.1.563367.3.579 .2.1258 1954 Unknown [id number] 2.16.840.1.487938.3.579 .2.1258 1954 Unknown [id number] 2.16.840.1.817354.3.579 .2.1258 1954 Unknown [id number] 2.16.840.1.821868.3.579 .2.1258 1954 Unknown [id number] 2.16.840.1.051475.3.579 .2.1258 1954 Unknown [id number] 2.16.840.1.048881.3.579 .2.1258 1954 Unknown [id number] 2.16.840.1.541817.3.579 .2.1258 1954 Unknown [id number] 2.16.840.1.530942.3.579 .2.1258 1954 Unknown [id number] 2.16.840.1.975514.3.579 .2.1258 1954 Unknown [id number] 2.16.840.1.693100.3.579 .2.1259 1954 Unknown [id number] 2.16.840.1.245040.3.579 .2.9 1954 Unknown [id number] 2.16.840.1.974047.3.579 .2.1259 1954 Unknown [id number] 2.16.840.1.928116.3.579 .2.1258 1954 Unknown [id number] 2.16.840.1.533248.3.579 .2.125 1954 Unknown [id number] 2.16.840.1.279482.3.579 .2.1258 1954 Unknown [id number] 2.840.1.093965.3.579 .2.1258 1954 Unknown [id number] 2.840.1.279296.3.579 .2.1258 1954 Unknown [id number] 2.16840.1.814136.3.579 .2.1243 1954 Unknown [id number] 2.840.1.525143.3.579 .2.1243 1954 Unknown [id number] 2.16840.1.106566.3.579 .2.1244 1954 Unknown [id number] 2.840.1.186578.3.579 .2.1244 1954 Unknown [id number] 2.840.1.491447.3.579 .2.1244 Unknown [facility] [id number] Unknown [id number] 2.16840.1.183629.3.579 .2.531 Unknown [id number] 2.16840.1.614953.3.579 .2.531 Unknown [id number] 2.16840.1.671439.3.579 .2.531 Unknown [id number] 2.16.840.1.837667.3.579 .2.531 Unknown [id number] 2.16.840.1.761126.3.579 .2.531 Social History Date Type Detail Facility Start: 09-05-2023 End: 05-10-2025 Sex Assigned At [facility] Other Start: 03-02-2023 End: 01-30-2024 Tobacco smoking status NHIS Ex-smoker (finding) [facility] Start: 1955 Sex Assigned At Male F [facility] Start: 09-05-2023 End: 05-10-2025 Alcohol ingestion Alcohol ingestion -[facility] [facility] DO Work Phone: Comment on above: 10oz wine daily; coffee 1 mug daily; quit 2007; Start: 11-01-2023 End: 11-01-2023 History of tobacco use Current smoker [facility] Work Phone: End: 10-03-2003 History of tobacco use Cigarette Smoker [facility] Work Phone: Start: 09-05-2023 End: 01-30-2024 Tobacco use and exposure Smokeless tobacco non-user [facility] Work Phone: Start: 09-05-2023 End: 05-10-2025 Alcohol intake Current drinker of alcohol (finding) [facility] Work Phone: Start: 1955 [facility]: Start: 08-26-2023 End: 01-21-2025 Exposure to SARS-CoV-2 (event) Not sure [facility] Start: 10-22-2023 End: 04-16-2025 Tobacco smoking status NHIS Never smoked tobacco (finding) [facility] Start: 04-06-2023 Tobacco Comment Last smoked : > 10 years [facility] Start: 04-06-2023 Alcohol Comment caffeine intak e : 1-2 cups per day [facility] consumption [facility] Start: 02-25-2023 Housing Instability Unknown [facility] Start: 12-24-2024 End: 03-11-2025 Sex Male (finding) [facility] Start: 04-16-2025 SDOH Follow up SDOH Follow up [facility] Work Phone: Goals Date Patient Goal Desired Activity /State Functional Status Date Assessment Result Facility 04-17-2025 Functional status Patient at Baseline [facility] Work Phone: 12-25-2024 Functional status Patient at Baseline [facility] Work Phone: 03-02-2023 Functional status Patient at Baseline [facility] Work Phone: 02-25-2023 Functional status Patient at Baseline [facility] Work Phone: 02-24-2023 Functional status Disability Sta tus Patient at Baseline [facility] Work Phone: Mental Status Date Assessment Result Facility 04-17-2025 Cognitive function Cognitive Sta tus Patient at Baseline [facility] Work Phone: 12-25-2024 Cognitive function Cognitive Sta tus Patient at Baseline [facility] Work Phone: 03-02-2023 Cognitive function Cognitive Sta tus Patient at Baseline [facility] Work Phone: 02-25-2023 Cognitive function Cognitive Sta tus Patient at Baseline [facility] Work Phone: Clinical Notes 2019 to 05-10-2025 Assessment & Plan Note - FREDIS Flowers - 05/10/2025 4:28 PM EDTAssessment & Plan Note - FREDIS Flowers - 05/10/2025 4:28 PM EDTPatient Instructions Note Date & Type Note Facility 05-10-2025 Evaluation + Plan note Associated Problem(s): Obstructive sleep apnea syndrome Not able to tolerate CPAP [facility] Work Phone: 05-10-2025 Miscellaneous Notes Associated Problem(s): Obstructive sleep apnea syndrome Not able to tolerate CPAP documented in this encounter [facility] Work Phone: 05-10-2025 History of Presen t illness Narrative Chief Complaint Reason for Visit Patient presents to the office today for outpatient follow-up for hospital follow up. Last evaluated in clinic by Presents today ambulatory with steady gait. Accompanied by spouse Patient denies any hospitalizations or significant changes to interval medical history since last office follow-up. History of Present Illness Patient reports that overall has no complaint(s) of chest pain, chest pressure/discomfort, claudication, dyspnea, exertional chest pressure/discomfort, fatigue, irregular heart beat, lower extremity edema, and near-syncope Daily activity: > 4 METs Denies any change in exercise capacity or functional tolerance since last office visit. The importance of secondary prevention reviewed: HTN: HLD: DM: Smoker: BMI: Reviewed the merits of healthy lifestyle choices on overall cardiovascular health. Review of Systems Cardiovascular: Negative for chest pain, dyspnea on exertion, irregular heartbeat, leg swelling, near-syncope, orthopnea, palpitations, paroxysmal nocturnal dyspnea and syncope. Visit Vitals BP 120/60 (BP Location: Left arm, Patient Position: Sitting) Pulse 72 Ht 1.791 m (5' 10.5 ) Wt 97.5 kg (215 lb) BMI 30.41 kg/m Smoking Status Former BSA 2.2 m Physical Exam Vitals and nursing note [...] is cooperative. ALLERGIES: Nsaids (non-steroidal anti-inflammatory drug), Zkrragb-nld-qqv reductase inhibitors, and Spironolactone Current Outpatient Medications [...] SUPPORT COMPLEX ORAL) 1 capsule, Daily Assessment: Plan: Karlo Aldridge MSN, DIRECTOR OF AVIATION-FUSION ANALYST, PMHNP-[facility] [place], [place] Please excuse any errors in grammar or translation related to this dictation. Voice recognition software was utilized to prepare this document. documented in this encounter [facility] Work Phone: 05-10-2025 Instructions FREDIS Flowers - 05/10/2025 4:00 PM EDT Please bring all medicines, vitamins, and herbal supplements with you when you come to the office. Prescriptions will not be filled unless you are compliant with your follow up appointments or have a follow up appointment scheduled as per instruction of your physician. Refills should be requested at the time of your visit. PLAN: Through informed decision making process incorporating [...] Neal 8 weeks documented in this encounter [facility] Work Phone: 04-22-2025 History of Presen t illness Narrative HPI Patient presents today status post septoplasty about a month ago. He called last week saying he was having difficulty breathing through his nose with some collapsing. The story is that he was hospitalized recently with congestive 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, was diuresed in now this all seems to be happening again. His is very upset with him because he is not sleeping, having lot of difficulty breathing and nighttime, etcetera. He is not using his CPAP. Relevant postoperative physical examination Intranasally, the septum is straight, he has got very good bilateral his airways and no evidence of obstruction. He may have just a hint of left internal nasal valve incompetence but nothing dramatic. Auscultation bilaterally does reveal rales. Assessment/plan Vick was seen today for nasal congestion. Diagnoses and all orders for this visit: Status post nasal septoplasty (Primary) Comments: From a nasal standpoint he looks fine. I again reiterated to him explicitly this is not his nose that is causing his breathing difficulty Chronic congestive 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, unspecified 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 type (HCC) Comments: I did contact his primary care physician, Dr. Corbin graciously accepted to see him this afternoon. He is going to go directly there. documented in this encounter [facility] 04-17-2025 Progress note Note Date/Time April 17, 2025 3:40pm [facility] [address] [place] [address] Hospitalist Progress Note Signed Patient: Vick Mercado MR#: [id number] : 1955 Acct:[id number] Age/Sex: 70 / M Adm Date: 5 Loc: Room: [address] [place] [address] Type: ADM IN Attending Dr: Adonay Mai MD Copies to: ~ Date of Service: 04/17/2025 Subjective Subjective Narrative: Patient is a 70-year-old male, surgical history significant for nonischemic cardiomyopathy with HFr/pEF, PAF, HTN, JANETTE on bipap and anxiety recent nasal septoplasty who presents for shortness of breath. 04/16 follow-up patient reports of shortness of breath 04/17 follow-up patient does report some improvement in shortness of breath Exam Physical Exam Vital Signs: Temp Pulse Resp BP Pulse Ox O2 Del Method O2 Flow Rate 97.8 F 70 17 119/74 97 Room Air 5 04/17/25 08:00 04/17/25 11:59 04/17/25 11:59 04/17/25 11:59 04/17/25 11:59 04/17/25 11:59 04/17/25 05:42 Const General: comfortable and no acute distress Resp Effort & Inspection: normal respiratory effort, able to speak in complete sentences and no respiratory distress Auscultation: clear to auscultation bilaterally and no crackles Cardio Rate: regular rate Rhythm: regular rhythm Heart Sounds: S1 normal and S2 normal Extrem General: edema Laterality: bilaterally Objective Lab Results 04/15/25 19:02 04/17/25 10:48 Meds Allergies and Active Meds Allergies Corticosteroids (Glucocorticoids) Allergy (Severe, Verified 04/16/25 02:42) sensitivty Pirdtts-OKQ-YbL Reductase Inhibitor Adverse Reaction (Mild, Verified 04/16/25 02:42) muscle aches Active Meds: Active Medications Generic Name Dose Route Start Last Admin Trade Name Freq PRN Reason Stop Dose Admin Acetaminophen 1,000 mg 04/16/25 00:40 Acetaminophen 500 Mg Tablet PO 04/16/26 00:39 Q6HR PRN Pain Scale 1 - 3 or fever Alprazolam 0.5 mg 04/16/25 01:01 04/17/25 09:29 Alprazolam 0.5 Mg Tablet PO 10/13/25 01:00 0.5 mg TID PRN Administration Anxiety Apixaban 5 mg 04/17/25 11:00 04/17/25 12:01 Apixaban 5 Mg Tablet PO 04/17/26 10:59 5 mg BID CARSON Administration Aspirin 81 mg 04/16/25 09:00 04/17/25 09:29 Aspirin 81 Mg Tab.Chew PO 04/16/26 08:59 81 mg DAILY CARSON Administration Carvedilol 6.25 mg 04/16/25 17:00 04/17/25 09:29 Carvedilol 6.25 Mg Tablet PO 04/16/26 16:59 6.25 mg BID.WITH.MEALS CARSON Administration Furosemide 40 mg 04/16/25 08:00 04/17/25 09:30 Furosemide 40 Mg/4 Ml Vial IV-PUSH 04/16/26 07:59 40 mg DAILY.8A CARSON Administration Magnesium Oxide 400 mg 04/16/25 22:00 04/16/25 21:43 Magnesium Oxide 400 Mg Tablet PO 04/16/26 21:59 400 mg HS CARSON Administration Melatonin 5 mg 04/16/25 00:40 04/16/25 23:35 Melatonin 5 Mg Tablet PO 04/16/26 00:39 5 mg QHS PRN Administration Insomnia Pantoprazole Sodium 40 mg 04/16/25 07:58 04/17/25 09:29 Pantoprazole 40 Mg Tablet.Dr PO 04/16/26 07:57 40 mg DAILY PRN Administration dysphagia Sacubitril/Valsartan 1 tab 04/16/25 21:00 04/17/25 09:28 Sacubitril/Valsartan 49-51mg 1 Tab Tablet PO 04/16/26 20:59 1 tab BID CARSON Administration Sodium Chloride 0 ml 04/15/25 17:29 04/16/25 09:48 Sodium Chloride 0.9 % 10 Ml Syringe IV-PUSH 04/15/26 17:28 10 ml PRN PRN Administration Flush Tramadol HCl 50 mg 04/16/25 07:58 04/16/25 21:46 Tramadol 50 Mg Tablet PO 10/13/25 07:57 50 mg Q6HR PRN Administration Pain A&P - Hospitalist Assessment/Plan (1) Acute exacerbation of chronic 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: (2) Paroxysmal A-fib: Plan Patient is a 70-year-old male, surgical history significant for nonischemic cardiomyopathy with HFr/pEF, PAF, HTN, JANETTE on bipap and anxiety recent nasal septoplasty who presents for shortness of breath. 1. Acute on chronic 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 HFrEF Suspect due to noncompliance, not been taking furosemide Echocardiogram today revealed LVEF of 40 to 45% with left ventricular diastolic dysfunction. Echocardiogram In October 2023. LVEF 50-55% Cardiology recommendations for continued diuresis with furosemide 40 mg IV dailyfor additional 24 hours and reevaluate in the morning. The patient's following chronic comorbidities are stable: PAF?warfarin?pharmacy to dose HTN?carvedilol Anxiety?alprazolam?OARRS report checked CAD?low-dose aspirin daily JANETTE on BiPAP?May use 2 L nasal cannula at at bedtime, but patient does not have BiPAP machine here Documented By: Adonay Mai MD 04/17/25 1534 Signed By: <Electronically signed by Adonay Mai MD> 04/17/25 1541 [facility] Work Phone: 1(970) 723-605707-16-2025 [place] [id number] Cardiology Progress Note Signed Patient: Vick Mercado MR#: [id number] : 1955 Acct:[id number] Age/Sex: 70 / M Adm Date: 5 Loc: Room: [address] [place] [address] Type: ADM IN Attending Dr: Adonay Mai MD Copies to: ~ Date of Service: 04/17/2025 Subjective Principal diagnosis: Decompensated systolic 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 with mildly reduced ejection fraction Interval history: Mr. Mercado is a 70 year old male with history of nonischemic cardiomyopathy confirmed by cardiac catheterization couple years ago. He follows in our officewith Dr. Neal. He presented with progressive dyspnea without lower extremity edema, questionable orthopnea, no significant weight gain. Hasbeen compliant with medical therapy. His last echocardiogram about a year ago showed ejection fraction around 50%. He has been treated with beginning dose of carvedilol and Entresto. In the past did not tolerate spironolactone due to gynecomastia. Thepatient has remote history of atrial fibrillation currently on Coumadin but no antiarrhythmic therapy. On presentation his x-ray shows evidence of increased vascular markings, his BNP was just over 700 pg/mL, his troponin was mildly elevated in a flat pattern that is not consistent with ACS. He denies any chestpain or syncope. He is non-smoker nondiabetic, renal function was normal, CBC was normal and his EKG revealed normal sinus rhythm with nonspecific ST and T changes. Echocardiogram revealed ejection fraction 40?45% with no significant valvular disease. Discussed the case with the patient at length. I recommendedtitration of 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 therapy indicating that ideally he should be on 25 mgtwice daily of carvedilol if he can tolerated and on 97/103 mg twice daily of Entresto, since he is intolerant to spironolactone we can use epler enone later. SGLT2 inhibitors should be considered. The patient is receiving IV Lasix and isimproving his respiratory status, my expectation is possible discharge home tomorrow. Cardiology follow-up 04/17/2025: Patient is stable with no dyspnea during casual activities, tolerated increasing carvedilol and Entresto without a problem. No congestion on his lung examination, cardexamination was unremarkable. No lowerextremity edema or ascites. Lab afebrile stable. Patient discharged home on present medications and follow-up in our office with Dr. Neal as scheduled Exam Physical Exam Vital Signs: Temp Pulse Resp BP Pulse Ox O2 Del Method O2 Flow Rate 97.8 F 70 17 119/74 97 Room Air 5 04/17/25 08:00 04/17/25 11:59 04/17/25 11:59 04/17/25 11:59 04/17/25 11:59 04/17/25 11:59 04/17/25 05:42 Const General: cooperative, comfortable and no acute distress Nutritional Appearance: average body habitus and other (His weight measurement is inaccurate and need to be fixed) Orientation: alert, awake and oriented x3 HEENT Head: normal to inspection, normocephalic and atraumatic Ears: hearing grossly normal bilaterally Nose: external nose normal Face and sinus: normal facial exam Eyes Conjunctivae: conjunctivae normal Pupils: PERRL Neck Neck: trachea midline and supple Neck mass: No Thyroid: thyroid normal Carotids: normal carotid upstroke Resp Effort & Inspection: normal respiratory effort Auscultation: crackles Cardio Jugular venous pressure: no JVD Palpation: normal PMI Rate: regular rate Rhythm: regular rhythm Heart Sounds: S1 normal and S2 normal GI Inspection: normal to inspection Palpation: soft and no hepatosplenomegaly Auscultation: normal bowel sounds Extrem General: no clubbing, cyanosis or edema Objective Labs 04/15/25 19:02 04/17/25 10:48 Labs: Laboratory Results - last 24 hr 04/17/25 04/17/25 06:33 10:48 PT 13.6 H INR 1.2 PHA Creatinine Clear 97.89 Sodium 136 Potassium 3.9 Chloride 102 Carbon Dioxide 25.9 Anion Gap TNP BUN 24 Creatinine 0.74 Est GFR (CKD-EPI) > 60.0 Glucose 127 H Calcium 9.2 A&P - Cardiology (1) Acute exacerbation of CHF (congestive 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): Assessment/Problem Details: Ejection fraction 40-45%, patient has been compliant with medical therapy. Recently there has been interruption of his routine by multiple travels. Patient is currently not on appropriate dosing of GDMT Plan: Switch to oral Lasix, continue other medications for 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, discharged home today Code(s): I50.9 - Heart failure, unspecified (2) Paroxysmal A-fib: Assessment/Problem Details: Not on antiarrhythmic therapy but on Coumadin, currently in sinus rhythm Plan: Continue Coumadin Code(s): I48.0 - Paroxysmal atrial fibrillation (3) Nonischemic cardiomyopathy: Assessment/Problem Details: Confirmed by cardiac catheterization couple years ago Plan: No further cardiac ischemia workup Code(s): I42.8 - Other cardiomyopathies (4) JANETTE (obstructive sleep apnea): Assessment/Problem Details: For the most part he has been compliant with CPAP machine except when he travels Plan: Utilize CPAP machine as prescribed, try to lose weight Code(s): G47.33 - Obstructive sleep apnea (adult) (pediatric) Documented By: Kings Banegas MD, LOCATED WITHIN [facility] [id number] Signed By: 04/17/25 1659 [facility]07-16-2025 [place] [id number] Discharge Summary Signed Patient: Vick Mercado MR#: [id number] : 1955 Acct:[id number] Age/Sex: 70 / M Adm Date: 5 Loc: Room: [address] [place] [address]: Adonay Mai MD Copies to: DO Adonay Crandall MD~ Providers Date of Discharge: 04/17/25 Discharging Provider: Adonay Mai Primary Care Provider: Jairo Corbin Consults: 04/16/25 00:40 Consult to Cardiology Routine Comment: Consulting Provider: [employer] Reason For Exam: chf Has Provider Been Notified: Yes Date of Notification: 04/16/25 Time of Notification: 08:08 Discharge Diagnosis (1) Acute exacerbation of chronic 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: (2) Paroxysmal A-fib: Final Diagnosis Final Discharge Diagnosis: Acute on chronic 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 HFrEF Summary Hospital Course Hospital course: Patient is a 70-year-old male, surgical history significant for nonischemic cardiomyopathy with HFr/pEF, PAF, HTN, JANETTE on bipap and anxiety recent nasal septoplasty who presents for shortness of breath. 1. Acute on chronic 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 HFrEF Suspect due to noncompliance, not been taking furosemide Echocardiogram today revealed LVEF of 40 to 45% with left ventricular diastolic dysfunction. Echocardiogram In October 2023. LVEF 50-55% During hospitalization, patient was managed with IV diuretic. Cardiology followed during hospitalization with recommendations to discharge patient on increased dose of carvedilol 6.25 mg twice daily in addition to increased dose of Entresto 49/50 mg twice daily. Recommendations for consideration for SGLT2 inhibitor as an outpatient. The patient's following chronic comorbidities are stable: PAF?warfarin?pharmacy to dose HTN?carvedilol Anxiety?alprazolam?OARRS report checked CAD?low-dose aspirin daily JANETTE on BiPAP?May use 2 L nasal cannula at at bedtime, but patient does not have BiPAP machine here Time Spent with Patient Time spent providing/coordinating discharge services (# min): 35 Discharge Plan Discharge Plan Patient Disposition: Home Instructions: Know your Meds Prescriptions: New Eliquis 5 mg tablet 5 mg PO BID 30 Days Qty: 60 3RF carvedilol 6.25 mg Tablet 6.25 mg PO BID.WITH.MEALS 30 Days Qty: 60 12RF Entresto 49-51 mg Tablet 1 tab PO BID 30 Days Qty: 60 12RF Continued tramadol 50 mg tablet 50 mg PO Q6HR PRN (Reason: pain) 30 Days Qty: 120 2RF melatonin 5 mg capsule 5 mg PO HS PRN (Reason: sleep) Zyrtec 10 mg capsule 10 mg PO DAILY PRN (Reason: angioedema) alprazolam 0.5 mg tablet 0.5 mg PO TID PRN (Reason: anxiety) 90 Days Qty: 270 0RF Patient Comments: 0.75mg at night time aspirin [Children's Aspirin] 81 mg Tablet,Chewable 81 mg PO DAILY 90 Days Qty: 90 3RF ascorbic acid (vitamin C) [Vitamin C With Gabbi Hips] 1,000 mg tablet 500 mg PO DAILY furosemide [Lasix] 20 mg tablet 20 mg PO DAILY ivermectin 6 mg tablet 12 mg PO .COMPLEX Rx Instructions: 12 mg orally; Spirulina 1000mg 1,000 mg PO DAILY magnesium oxide 300 mg magnesium tablet 300 mg PO HS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 still having anterior chest muscle tightness. Overall neckis feeling better. Can tell his shoulder are [...] fusions, Soft Tissue Mobilization, Myofascial Release to anteriorneck and upper chest musculature. Therapeutic Exercise: (28 [...] 09/11 for neck pain and UE weakness. Pt.Demonstrates improved cervical ROM grossly in all planes. Improved bilateral upper trapezius muscleflexibility. Scapular weakness 4/5. Fatigue noted with band exercises. Pt. Is making slow progress toward PT goals. Outcome Measure: Neck Index 18, 10/15 (index 18 ) Short Term Goal: To be met in 2 weeks Goal 1: Pt to be instructed in home exercise program. Jail Goals: To be met in 10 weeks [...] in all planes to allow him to lift/carryobjects to help improve his functional mobility with daily tasks. (50 % MET) Pt will benefit from skilled PT for 1-3x/week from 09/11/24 to 11/20/24 to address the above impairments. I hereby deem this POC medically necessary. Please sign below. Date: documented in this encounterThe Rehabilitation [id number] History of Present illness Narrative* Mao Jesus, PT - 10/01/2024 8:30 AM EST Images from the original note were not [...] difficulty lifting objects and feels he gets tireda lot fast than normal. Reports neck pain [...] Neural Mobilization, Power, and Core Stability UBE (3/3minutes) Therapeutic Activity: Exercises to improve dynamic activities, [...] to be instructed in home exercise program. Jail Goals: To be met in 10 weeks [...] in all planes to allow him to lift/carryobjects to help improve his functional mobility with daily tasks. Pt will benefit from skilled PT for 1-3x/week from 09/11/24 to 11/20/24 to address the above impairments. I hereby deem this POC medically necessary. Please sign below. Date: documented in this encounterThe Rehabilitation [id number] History of Present illness Narrative* Mao Jesus, PT - 09/17/2024 8:00 AM EST Physical Therapy Treatment Visit Patient Name: Vick [...] difficulty lifting objects and feels he gets tireda lot fast than normal. Reports neck pain [...] Neural Mobilization, Power, and Core Stability UBE (3/3minutes) Therapeutic Activity: Exercises to improve dynamic activities, [...] to be instructed in home exercise program. Specialist Wound Care Goals: To be met in 10 weeks [...] in all planes to allow him to lift/carryobjects to help improve his functional mobility with daily tasks. Pt will benefit from skilled PT for 1-3x/week from 09/11/24 to 11/20/24 to address the above impairments. I hereby deem this POC medically necessary. Please sign below. Date: documented in this encounterThe Rehabilitation [id number] History of Present illness Narrative* Mao Jesus, PT - 09/11/2024 8:30 AM EST Physical Therapy Evaluation Visit Patient Name: Vick [...] difficulty lifting objects and feels he gets tireda lot fast than normal. Reports neck pain wakes him up at night. Decreased sensation in his left index and middle finger. Pt. Goal is to improve neck flexibility and strength. Precautions: C3-C6 cervical spine fusion Subjective Pain: 2-02/09; pain increases throughout the day Objective: PT [...] to be instructed in home exercise program. Specialist Wound Care Goals: To be met in 10 weeks [...] in all planes to allow him to lift/carryobjects to help improve his functional mobility with daily tasks. Pt will benefit from skilled PT for 1-3x/week from 09/11/24 to 11/20/24 to address the above impairments. I hereby deem this POC medically necessary. Please sign below. Date: documented in this encounterThe Rehabilitation [id number] History of Present illness Narrative* Mary Neal MD - 07/30/2024 11:45 AM EDT Last seen by me 01/2024 and by Karlo Aldridge NP in 03/2024 and I have reviewed notes by Karlo Aldridge NP. Subjective : Interval review of systems is negative for chest discomfort pressure tightness heaviness palpitations lightheadedness orthopnea paroxysmal nocturnal dyspnea dependent edema or claudication TIA or CVAtype symptoms or bleeding diathesis Seen by aKrlo Aldridge 4 months ago. Echo laboratory data ordered. History so Far : COVID infection with respiratory symptoms December 2022 Systolic congestive heart failure January 2023 class IV January 2023 presented to [facility] Cardiac cath: LVEF 20% LVEDP was [...] trace tricuspid regurgitation, no pericardial effusion, LV end- systolic size 3.75 cm, PA pressure not estimated. [...] being measured enrolled in Coumadin clinic at [place]. Most recent INR 3.0, warfarin dose will [...] healthy lifestyle choices on overall cardiovascular health. 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 [...] 1 mg tablet Take as directed by [place] [facility] zinc acetate 25 mg (zinc) capsule 1 capsule, Daily Allergies Allergen Reactions Nsaids (Non-Steroidal Anti-Inflammatory Drug) Unknown Zcnrybt-Ijf-Yui Reductase Inhibitors Unknown LABS: Laboratory data July 2024-hemoglobin 14.1 hematocrit 41, platelets 2 90,000 Patient Active Problem List Diagnosis Date Noted Pre-operative examination 01/30/2024 BMI 31.0-31.9,adult 01/30/2024 Sinus bradycardia 01/30/2024 Hospital discharge follow-up 11/10/2023 Personal history of COVID-19 09/29/2023 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 congestive heart failure, NYHA class 2 09/29/2023 Medication course changed 09/29/2023 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 Non-ischemic cardiomyopathy (Multi) Follow Up In Cardiology 2. Persistent atrial fibrillation (Multi) 3. Hypertension, benign 4. 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 congestive heart failure, NYHA class 2 5. skilled nursing current use of 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 therapy 6. BMI 31.0-31.9,adult 7. Former smoker 8. Lipid screening At this point, we can try discontinuing the furosemide. Currently takes it once a day. No evidence of volume overload. 6-month follow-up 2-week [facility] prior to next visit. ? Discontinue anticoagulation-will discuss further at next visit. Follow up : 6 months Provider Attestation - Scribe documentation All medical record entries made by the Scribe were at my direction and personally dictated by me. Ihave reviewed the chart and agree that the record accurately reflects my personal performance of the history, physical exam, discussion and plan. Scribe Attestation By signing my name below, I, Marlo King LPN attest that this documentation has been prepared under the direction and in the presence of Mary Neal MD. documented in this [facility] Work Phone: 1(324) 883-308510-28-2024 Instructions* Patient Instructions* Chioma Sewell LPN - 07/30/2024 11:45 AM [...] instructions on dietary changes. documented in this [facility] Work Phone: 1(532) 416-804509-20-2024 [facility] History of Present illness Narrative* Mary Neal MD - 01/30/2024 2:00 PM EDT This is a follow-up from November 2023.Patient [...] 2023 class IV January 2023 presented to [facility] Cardiac cath: LVEF 20% LVEDP was [...] being measured enrolled in Coumadin clinic at [place]. Most recent INR 3.0, warfarin dose will [...] healthy lifestyle choices on overall cardiovascular health. 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 zinc acetate 25 mg (zinc) capsule 1 capsule, oral, Daily Allergies Allergen Reactions Nsaids (Non-Steroidal Anti-Inflammatory Drug) Unknown Jpaapkc-Yeb-Zkb Reductase Inhibitors Unknown LABS: Reviewed PT and INR results CBC from October 2023. INR results have been labile. 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 Coronary artery disease involving chenega coronary artery of chenega heart without angina pectoris 7. Sinus bradycardia [...] suggesting that we reevaluate his LV function andthen make the recommendation. I am okay with [...] my direction and personally dictated by me. Barbie reviewed the chart and agree that the record accurately reflects my personal performance of the history, physical exam, discussion and plan. Scribe Attestation By signing my name below, I, Chioma KEENE , Scribe attest that this documentation has been prepared under the direction and in the presence of Mary Neal MD. documented in this encounterAden[facility] Work Phone: 1(417) 792-211004-29-2024 Instructions* Patient Instructions* Chioma Sewell LPN - 01/30/2024 2:00 PM [...] standpoint for dental procedure. documented in this encounterAdena Health System Work Phone: 1(189) 396-607302-08-2024 History of Present illness Narrative* Mary Neal MD - 11/10/2023 1:45 PM EST Patient was most recently seen by me [...] ventricular rate, was placed on IV diltiazem, sub sequently electrically cardioverted. Did not see a NABOR [...] respect to atrial fibrillation. His heart failure symptomsthat cardiac. History so Far : COVID infection with respiratory symptoms December 2022 Systolic congestive heart failure January 2023 class IV January 2023 presented to [facility] Cardiac cath: LVEF 20% LVEDP was 25, [...] being measured enrolled in Coumadin clinic at [place]. Most recent INR 3.0, warfarin dose will [...] healthy lifestyle choices on overall cardiovascular health. 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 zinc acetate 25 mg (zinc) capsule 1 capsule, oral, Daily Allergies Allergen Reactions Nsaids (Non-Steroidal Anti-Inflammatory Drug) Unknown Ktheimd-Dmn-Suk Reductase Inhibitors Unknown LABS: Reviewed comprehensive profile and CBC pertaining to hospital stay. 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 Hospital discharge follow-up 2. Persistent atrial fibrillation (CMS/HCC) 3. 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 Non-ischemic cardiomyopathy (CMS/HCC) Follow Up In Cardiology 5. 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 congestive heart failure, NYHA class 2 (CMS/HCC) Follow Up In Cardiology 6. Coronary artery disease involving chenega coronary artery of chenega heart without angina pectoris 7. Hypertension, benign 8. Former smoker 9. First-degree AV block Clinical discussion: Patient developed acute on chronic systolic left heart failure and hypoxemic respiratory failure related to that, due to atrial fibrillation with rapid ventricular rate. Sustaining normal sinus rhythm and first-degree AV block OR interval today 226 ms Abnormal R wave [...] Attestation By signing my name below, IMonique Marlo Mace LPN attest that this documentation has been prepared under the direction and in the presence of Mary Neal MD. Provider Attestation - Scribe documentation All medical record entries made by the Scribe were at my direction and personally dictated by me. Ihave reviewed the chart and agree that the record accurately reflects my personal performance of the history, physical exam, discussion and plan. documented in this encounterAdena Health System Work Phone: 1(560) 106-232602-08-2024 Instructions* Patient Instructions* Nunu Graves CMA - 11/10/2023 1:45 PM [...] done in office today documented in this encounterAdena Health System Work Phone: 1([phone]) 748-533512-28-2023 History of Present illness Narrative* Mary Neal MD - 09/29/2023 1:45 PM EST Patient is new to this provider. Previously seen by Dr. Lucio subsequently by Karlo Aldridge. Accompanied by to the office. is very helpful in coordination of care. Hard of hearing, however I was able to communicate quite well. 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 Previously had some perceived medication noncompliance issues, but patient says the medications were prohibitively expensive for him. His Entresto has just been approved. He is currently taking half a tablet of 24/ twice a day so that he can have the medications last longer. Entresto was just approved today. Previously was prescribed Farxiga, which was prohibitively expensive newer anticoagulation agents were also prohibitively expensive. Now on warfarin, and PT/INR today with Coumadin clinic in [place]. Denies any bleeding diathesis. 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 Most recent INR 3.0, warfarin dose will [...] healthy lifestyle choices on overall cardiovascular health. skilled nursing current use of 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 therapy CHADS VASc [...] start Entresto, we will change dose to 24/26p.o. twice daily unable to increase dose further because of borderline blood pressure I will decrease his Lasix from 20 mg daily to 10 mg daily. If no evidence of fluid retention with this down titration we will discontinue Lasix altogether. Farxiga remains prohibitively expensive. Atnext visit we will see if Jardiance is [...] week for the next 6 weeks, follow-up afterthat, and if INRs have been consistently within range, we will plan electrical cardioversion. Follow up : 6 weeks 1. Persistent atrial fibrillation (CMS/HCC) 2. Paroxysmal atrial fibrillation (CMS/HCC) Follow Up In Cardiology 3. Non-ischemic cardiomyopathy (CMS/HCC) 4. 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 congestive heart failure, NYHA class 2 (CMS/HCC) 5. Coronary artery disease involving chenega coronary artery of chenega heart without angina pectoris 6. SOB (shortness of breath) 7. Hypertension, benign 8. skilled nursing current use of 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 therapy 9. Obstructive [...] Attestation By signing my name below, I, KattyMarlo Addison LPN attest that this documentation has been prepared under the direction and in the presence of Mary Neal MD. Provider Attestation - Scribe documentation All medical record entries made by the Scribe were at my direction and personally dictated by me. Barbie reviewed the chart and agree that the record accurately reflects my personal performance of the history, physical exam, discussion and plan. Mary Neal MD FACC documented in this [facility] Work Phone: 1([phone]) 647-724612-28-2023 Instructions* Patient Instructions* Katty Best LPN - 09/29/2023 1:45 PM [...] need weekly INR's for possible DCC, [facility] [place] [facility] documented in this encounterAdena [facility] System Work Phone: [phone] 250-417412-12-2023 Evaluation note* Encounter Date Diagnosis Assessment Notes Treatment Notes Treatment Clinical Notes Sep, Chronic HFrEF (heart failure with reduced ejection fraction) (ICD-10 - I50.22) [facility]: LVEF 20%, mild CAD - 01/2023 Instructed [...] are maintaining regular scheduled appts with their astronaut mission specialist. Discussed cardioversion following 4 wks of AC therapy to prevent thromboembolic events. Discussed repeat Echo/MUGA to assess LVEF Sep, JANETTE (obstructive sleep apnea) (ICD-10 - G47.33) AHI 39, Psat 83% This patient is aware of the benefits associated with JANETTE: With continued use, the patient reduces the risk for MA, CVA, HTN, cardiac dysrhythmias and sudden cardiac [...] index [BMI] 31.0-31.9, adult (ICD-10 - Z68.31) [facility] 12-09-2023 Evaluation note* Encounter Date Diagnosis Assessment Notes Treatment Notes Treatment Clinical Notes Sep, Lumbar spondylosis (ICD-10 - M47.816) [facility] Other 12-06-2023 Evaluation note* Encounter Date Diagnosis Assessment Notes Treatment Notes Treatment Clinical Notes Sep, Paroxysmal atrial fibrillation (ICD-10 - I48.0) [facility] Other 12-06-2023 Evaluation + Plan note* Assessment & Plan Note - FREDIS Flowers - 09/07/2023 9:51 AM ESTAssociated Problem(s): Obstructive sleep apnea syndrome Remains compliant with BiPAP [facility] Work Phone: [phone] 438-746512-06-2023 Miscellaneous Notes* Assessment & Plan Note - FREDIS Flowers - 09/07/2023 9:51 AM ESTAssociated Problem(s): Obstructive sleep apnea syndrome Remains compliant with BiPAP * Assessment & Plan Note - FREDIS Flowers - 09/07/2023 9:50 AM EST Associated Problem(s): 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 [...] Cardiac and Vasculature January 2023 presented to [facility] Cardiac cath: Normal coronaries, LVEF 20% January 2023 TTE LVEF 40 to 45% with hypokinesis of inferior lateral and basal apical documented in this encounterAdena [facility] System Work Phone: [phone] Evaluation + Plan note* Assessment & Plan Note - FREDIS Flowers - 09/07/2023 9:50 AM ESTAssociated Problem(s): skilled nursing current use of 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 therapy CHADS VASc 3 After lengthy discussion regarding the importance of cardioembolic protection he agrees to begin treatment with Xarelto 20 mg daily. CRCL: 116 Provided with samples today and patient assistance forms [facility] Work Phone: [phone]) [phone] Evaluation + Plan note* Assessment & Plan Note - FREDIS Flowers - 09/07/2023 9:47 AM ESTAssociated Problem(s): Class 1 obesity with body mass index (BMI) of 30.0 to 30.9 in adult Reviewed the merits of healthy lifestyle choices on overall cardiovascular health. [facility] Work Phone: [phone]) [phone] Evaluation + Plan note* Assessment & Plan [...] 97 bpm [facility] Work Phone: [phone]) [phone] Evaluation + Plan note* Assessment & Plan [...] Narrow QRS [facility] Work Phone: [phone] Evaluation + Plan note* Assessment & Plan Note - FREDIS Flowers - 09/07/2023 9:26 AM ESTAssociated Problem(s): Hypertension, benign optimal in office [facility] Work Phone: [phone] Evaluation + Plan note* Assessment & Plan Note - FREDIS Flowers - 09/07/2023 9:26 AM ESTAssociated Problem(s): Cardiac and Vasculature January 2023 presented to [facility] Cardiac cath: Normal coronaries, LVEF 20% January 2023 TTE LVEF 40 to 45% with hypokinesis of inferior lateral and basal apical [facility] Work Phone: [phone] History of Present illness Narrative* FREDIS Flowers [...] Behavior: Behavior is cooperative. Allergies Allergen Reactions Ojdujzq-Bap-Lgr Reductase Inhibitors Unknown Current Outpatient Medications Medication [...] Cardiac and Vasculature January 2023 presented to [facility] Cardiac cath: Normal coronaries, LVEF 20% [...] healthy lifestyle choices on overall cardiovascular health. 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 Voice recognition software was utilized to prepare this document. documented in this [facility] Work Phone: [phone]) 533-236212-04-2023 Instructions* Patient Instructions* FREDIS Flowers - 09/05/2023 [...] Neal in 3 weeks documented in this encounterAdena [facility] System Work Phone: [phone] Evaluation note* Encounter Date Diagnosis Assessment Notes Treatment Notes Treatment Clinical Notes May, ASHD (arteriosclerot ic heart disease) (ICD-10 - I25.10) This patient is stable without activity related CP, dyspnea or lightheadedness. They are instructed to continue exercise and AHA diet plan. May, Chronic HFrEF (heart failure with reduced ejection fraction) (ICD-10 - I50.22) [facility]: LVEF 20%, mild CAD - 01/2023 Instructed [...] use, the patient reduces the risk for MA, CVA, HTN, cardiac dysrhythmias and sudden cardiac [...] They may safely use Tylenol as needed. [facility] Other 07-14-2023 Evaluation note* Encounter Date Diagnosis Assessment Notes Treatment Notes Treatment Clinical Notes Apr, Chronic HFrEF (heart failure with reduced ejection fraction) (ICD-10 - I50.22) C: LVEF 20%, mild CAD - 01/2023 [facility] Other 07-11-2023 Evaluation note* Encounter Date Diagnosis Assessment Notes Treatment Notes Treatment Clinical Notes Apr, JANETTE (obstructive sleep apnea) (ICD-10 - G47.33) AHI 39, Psat 83% [facility] 06-04-2023 Evaluation note* Encounter Date Diagnosis Assessment Notes Treatment Notes Treatment Clinical Notes Mar, Primary hypertension (ICD-10 - I10) Mar, Cervical spondylosis (ICD-10 - M47.812) [facility] 06-04-2023 Evaluation note* Encounter Date Diagnosis Assessment Notes Treatment Notes Treatment Clinical Notes Mar, Cervical spondylosis (ICD-10 - M47.812) [facility] Other 05-31-2023 Discharge summary Author Papo Lucio [facility] March 02, 2023 3:18pm Note Date/Time March 02, 2023 3:16p m [facility] [address] [place] [address] Discharge Summary Signed Patient: Vick Mercado MR#: [id number] : 1955 Acct:[id number] Age/Sex: 67 / M Adm Date: 3 Loc: CL Room: Attending Dr: Papo Lucio DO Copies [...] p CL [facility] Angio - Papo Lucio DO Complications Complications: None Diagnostic Studies [...] Low-Cholesterol Additional Instructions: DISCHARGE INSTRUCTIONS FOR CARDIAC GETTER WELDER PHONE NUMBER OF YOUR PHYSICIAN: [phone] PROCEDURE: Heart Cath The following instructions have [...] cold, numb, blue or white, call the astronaut mission specialist immediately. 4. ACTIVITY: You are advised to [...] bottle, follow the instructions on the bottle. [facility] is not responsible for incorrect prescription [...] Provider] - Documented By: Papo Lucio DO 03/02/23 151 Signed By: <Electronically signed by Papo Lucio DO> 03/02/231517 [facility] Work Phone: [phone]) 101-877005-31-2023 Procedure noteMart[facility]erry Hospital05-31-2023 Evaluation note* Encounter Date Diagnosis Assessment Notes Treatment Notes Treatment Clinical Notes January, Nonischemic cardiomyopathy (ICD-10 - I42.8) January, Chronic HFrEF (heart failure with reduced ejection fraction) (ICD-10 - I50.22) [facility]: LVEF 20%, mild CAD - 01/2023 [facility] Other 05-30-2023 Evaluation note* Encounter Date Diagnosis [...] use, the patient reduces the risk for MA, CVA, HTN, cardiac dysrhythmias and sudden cardiac [...] fever. Call if any of these develop [facility] Other 05-10-2023 Evaluation note* Encounter Date Diagnosis Assessment Notes Treatment Notes Treatment Clinical Notes January, Subacute maxillary sinusitis (ICD-10 - J01.00) [facility] Other 05-09-2023 Evaluation note* Encounter Date Diagnosis [...] use, the patient reduces the risk for MA, CVA, HTN, cardiac dysrhythmias and sudden cardiac [...] PSA (prostate specific antigen) (ICD-10 - Z12.5) [facility] Other 03-15-2023 Evaluation note* Encounter Date Diagnosis [...] for congestion, Tylenol for pain and fever. [facility] Other 03-10-2023 Evaluation note* Encounter Date Diagnosis Assessment Notes Treatment Notes Treatment Clinical Notes Dec, Acute bronchitis due to other specified organisms (ICD-10 - J20.8) Instructed to use Robitussin or Mucinex for cough, saline or Flonase NS for congestion, Tylenol for pain and fever. Dec, Tachycardia (ICD-10 - R00.0) Avoid stimulants, caffiene and sudafed/ Hydrate Recommend ER evaluation w/ sustained tachycardia [facility] Other 02-25-2023 Evaluation note* Encounter Date Diagnosis Assessment Notes Treatment Notes Treatment Clinical Notes Nov, Lumbar spondylosis (ICD-10 - M47.816) [facility] Other 06-29-2019 History and physical note Author Praveen Song [facility] June 22, 2024 10:56am Note Date/Time June 22, 2024 10:56am [facility] [address] [place] [address] Gastroenterology H&P Signed Patient: Vick Mercado MR#: [id number] : 1955 Acct:[id number] Age/Sex: 69 / M Adm Date: 4 Loc: Room: Type: [facility] Attending Dr: Praveen Song MD Copies to: [...] Song MD Documented By: Praveen Song MD 06/22/24 1056 Signed By: <Electronically signed by Praveen Song MD> 06/22/24 1056 [facility] Work Phone: Chief complaint+Reason for visit Narrative* Chief Complaint Deviated Septum, Sle ep Apnea New Referral sob Reason for Visit Acute on chronic sys tolic (congestive) 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 Atrial fibrillation with rapid ventricular response CHF (congestive heart failure) Cognitive decline Dental caries Hypertension Orthopnea Sleep apnea treated with nocturnal bilevel positive airway pressure (BPAP) [facility] Work Phone: Chief complaint+Reason for visit Narrative* Chief Complaint Deviated Septum, Sle ep Apnea New Referral Deviated Septum, Sleep Apnea sob [facility] Reason for Visit CHF (congestive hear t failure) Dental caries Hypertension Sleep apnea treated with nocturnal bilevel positive airway pressure (BPAP) Acute on chronic systolic (congestive) 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 Atrial fibrillation with rapid ventricular response Orthopnea [facility] Work Phone: Discharge summary Author Adonay Mai [facility] Note Date/Time April 17, 2025 3:59 pm [facility] [address] [place] [address] Discharge Summary Signed Patient: Vick Mercado MR#: [id number] : 1955 Acct:[id number] Age/Sex: 70 / M Adm Date: 5 Loc: Room: [address] [place] [address]: Adonay Mai MD Copies to: DO Adonay Crandall MD~ Providers Date of Discharge: 04/17/25 Discharging Provider: Adonay Mai Primary Care Provider: Jairo Corbin Consults: 04/16/25 00:40 Consult to Cardiology Routine Comment: Consulting Provider: [facility] Reason For Exam: chf Has Provider Been Notified: Yes Date of Notification: 04/16/25 Time of Notification: 08:08 Discharge Diagnosis (1) Acute exacerbation of chronic heart failure: (2) Paroxysmal A-fib: Final Diagnosis Final Discharge Diagnosis: Acute on chronic heart failure HFrEF Summary Hospital Course Hospital course: Patient is a 70-year-old male, surgical history significant for nonischemic cardiomyopathy with HFr/pEF, PAF, HTN, JANETTE on bipap and anxiety recent nasal septoplasty who presents for shortness of breath. 1. Acute on chronic heart failure HFrEF Suspect due to noncompliance, not been taking furosemide Echocardiogram today revealed LVEF of 40 to 45% with left ventricular diastolic dysfunction. Echocardiogram In October 2023. LVEF 50-55% During hospitalization, patient was managed with IV diuretic. Cardiology followed during hospitalization with recommendations to discharge patient on increased dose of carvedilol 6.25 mg twice daily in addition to increased dose of Entresto 49/50 mg twice daily. Recommendations for consideration for SGLT2 inhibitor as an outpatient. The patient's following chronic comorbidities are stable: PAF?warfarin?pharmacy to dose HTN?carvedilol Anxiety?alprazolam?OARRS report checked CAD?low-dose aspirin daily JANETTE on BiPAP?May use 2 L nasal cannula at at bedtime, but patient does not have BiPAP machine here Time Spent with Patient Time spent providing/coordinating discharge services (# min): 35 Discharge Plan Discharge Plan Patient Disposition: Home Instructions: Know your Meds Prescriptions: New Eliquis 5 mg tablet 5 mg PO BID 30 Days Qty: 60 3RF carvedilol 6.25 mg Tablet 6.25 mg PO BID.WITH.MEALS 30 Days Qty: 60 12RF Entresto 49-51 mg Tablet 1 tab PO BID 30 Days Qty: 60 12RF Continued tramadol 50 mg tablet 50 mg PO Q6HR PRN (Reason: pain) 30 Days Qty: 120 2RF melatonin 5 mg capsule 5 mg PO HS PRN (Reason: sleep) Zyrtec 10 mg capsule 10 mg PO DAILY PRN (Reason: angioedema) alprazolam 0.5 mg tablet 0.5 mg PO TID PRN (Reason: anxiety) 90 Days Qty: 270 0RF Patient Comments: 0.75mg at night time aspirin [Children's Aspirin] 81 mg Tablet,Chewable 81 mg PO DAILY 90 Days Qty: 90 3RF ascorbic acid (vitamin C) [Vitamin C With Gabbi Hips] 1,000 mg tablet 500 mg PO DAILY furosemide [Lasix] 20 mg tablet 20 mg PO DAILY ivermectin 6 mg tablet 12 mg PO .COMPLEX Rx Instructions: 12 mg orally; Spirulina 1000mg 1,000 mg PO DAILY magnesium oxide 300 mg magnesium tablet 300 mg PO HS selenium 50 mcg tablet 50 mcg PO DAILY pantoprazole 40 mg tablet,delayed release (DR/EC) 40 mg PO DAILY PRN (Reason: dysphagia) Qty: 30 5RF Discontinued warfarin 1 mg tablet 1 mg PO HS carvedilol 3.125 mg tablet 3.125 mg PO BID.WITH.MEALS 30 Days Qty: 60 11RF Entresto 24-26 mg tablet 1 tab PO BID 30 Days Qty: 60 0RF Follow Up: Ruby Prince MD [Active Staff, Cardiology] - 07/29/25 12:30 pm Exam Physical Exam Vital Signs: Temp Pulse Resp BP Pulse Ox O2 Del Method O2 Flow Rate 97.8 F 70 17 119/74 97 Room Air 5 04/17/25 08:00 04/17/25 11:59 04/17/25 11:59 04/17/25 11:59 04/17/25 11:59 04/17/25 11:59 04/17/25 05:42 Const General: comfortable and no acute distress Resp Effort & Inspection: normal respiratory effort, able to speak in complete sentences and no respiratory distress Auscultation: clear to auscultation bilaterally and no crackles Cardio Rate: regular rate Rhythm: regular rhythm Heart Sounds: S1 normal and S2 normal Extrem General: edema Laterality: bilaterally Diagnostic Studies Completed and Pending Studies Labs on day of discharge: 04/17/25 10:48: Sodium 136, Potassium 3.9 04/17/25 06:33: PT 13.6 H, INR 1.2, PHA Creatinine Clear 97.89, Sodium , Potassium , Chloride 102, Carbon Dioxide 25.9, Anion Gap TNP, BUN 24, Creatinine0.74, Est GFR (CKD-EPI) > 60.0, Glucose 127 H, Calcium 9.2 Documented By: Adonay Mai MD 04/17/25 1555 Signed By: <Electronically signed by Adonay Mai MD> 04/17/25 3571 [facility] Work Phone: Evaluation noteNo InformationNort [employer] Other Evaluation note* Diagnosis Onset Date Resolution Status CHF (congestive heart failure) acute Dyspnea, paroxysmal nocturnal acute Orthopnea acute Sleep apnea treated with noc turnal bilevel positive airway pressure (BPAP) acute [facility] Work Phone: Evaluation noteNo assessment information available [facility] Work Phone: Evaluation note* Diagnosis Dilated cardiomyopathy (CMS/HCC)- Primary Other primary cardiomyopathies Paroxysmal atrial fibrillation (CMS/HCC) Atrial fibrillation Hypertension, benign Essential hypertension, benign Obstructive sleep apnea syndrome Obstructive sleep apnea (adult) (pediatric) Class 1 obesity due to excess calories with serious comorbidity and body mass index (BMI) of 30.0 to 30.9 in adult 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 documented in this encounter [facility] Work Phone: Evaluation note* Diagnosis Persistent atrial fibrillation (CMS/HCC) Atrial fibrillation Paroxysmal atrial fibrillation (CMS/HCC) Atrial fibrillation Non-ischemic cardiomyopathy (CMS/HCC) Other primary cardiomyopathies 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 congestive heart failure, NYHA class 2 (CMS/HCC) Coronary artery disease involving chenega coronary artery of chenega heart without angina pectoris SOB (shortness of breath) Shortness of breath Hypertension, benign Essential hypertension, benign 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 Obstructive sleep apnea syndrome Obstructive sleep apnea (adult) (pediatric) Former smoker Personal history of tobacco use, presenting hazards to health Obesity (BMI 30.0-34.9) Personal history of COVID-19 Dilated cardiomyopathy (CMS/HCC) Other primary cardiomyopathies Medication course changed documented in this encounter [facility] Work Phone: Evaluation note* Diagnosis Onset Date Resolution Status Acute on chronic systolic (congestive) 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 acute Atrial fibrillation with rapid ventricular response acute CHF (congestive heart failure) acute Cognitive decline acute Dental caries acute Hypertension acute Orthopnea acute Sleep apnea treated with noc turnal bilevel positive airway pressure (BPAP) acute [facility] Work Phone: Evaluation note* Diagnosis Hospital discharge follow-up Other follow-up examination Persistent atrial fibrillation (CMS/HCC) Atrial fibrillation 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 Non-ischemic cardiomyopathy (CMS/HCC) Other primary cardiomyopathies 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 congestive heart failure, NYHA class 2 (CMS/HCC) Coronary artery disease involving chenega coronary artery of chenega heart without angina pectoris Hypertension, benign Essential hypertension, benign Former smoker Personal history of tobacco use, presenting hazards to health documented in this encounter [facility] Work Phone: Evaluation note* Diagnosis Onset Date Resolution Status CHF (congestive heart failure) acute Dental caries acute Hypertension acute Sleep apnea treated with noc turnal bilevel positive airway pressure (BPAP) acute Acute on chronic systolic (congestive) 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 resolved Atrial fibrillation with rapid ventricular response resolved Orthopnea resolved [facility] Work Phone: Evaluation note* Diagnosis 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 congestive heart failure, NYHA class 2 (Multi) Persistent atrial fibrillation (Multi) Atrial fibrillation Pre-operative examination Unspecified pre-operative examination Former smoker Personal history of tobacco use, presenting hazards to health BMI 31.0-31.9,adult Coronary artery disease involving chenega coronary artery of chenega heart without angina pectoris Sinus bradycardia Other specified cardiac dysrhythmias Non-ischemic cardiomyopathy (Multi) Other primary cardiomyopathies Hypertension, benign Essential hypertension, benign documented in this encounter [facility] Work Phone: Evaluation note* Diagnosis Onset Date Resolution Status ASHD (arteriosclerotic heart disease) acute Atrial fibrillation acute Chronic HFrEF (heart failure with reduced ejection fraction) acute Elevated cholesterol acute Hypertension acute Nonischemic cardiomyopathy a cute JANETTE (obstructive sleep apnea) acute [facility] Work Phone: Evaluation note* Diagnosis 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 congestive heart failure, NYHA class 2 (Multi) Persistent atrial fibrillation (Multi) Atrial fibrillation Non-ischemic cardiomyopathy (Multi) Other primary cardiomyopathies documented in this encounter [facility] Work Phone: Evaluation note* Diagnosis Onset Date Resolution Status Atrial fibrillation acute Elevated cholesterol acute HALEY (generalized anxiety disorder) acute Heart failure with improved ejection fraction (HFimpEF) acute Hypertension acute Nonischemic cardiomyopathy a cute JANETTE (obstructive sleep apnea) acute Medicare annual wellness visit, subsequent noneactive Screening PSA (prostate specific antigen) noneactive Screening for colon cancer n oneactive [facility] Work Phone: evaluation note* Diagnosis Onset Date [...] (HFimpEF) acute Hypertension acute Nonischemic cardiomyopathy a [facility] Work Phone: Evaluation note* Diagnosis Onset [...] (HFimpEF) acute Hypertension acute Nonischemic cardiomyopathy a [facility] Work Phone: Evaluation note* Diagnosis Dilated cardiomyopathy (Multi)- Primary Other primary cardiomyopathies Paroxysmal atrial fibrillation (Multi) Atrial fibrillation Hypertension, benign Essential hypertension, benign Obstructive sleep apnea syndrome Obstructive sleep apnea (adult) (pediatric) Class 1 obesity due to excess calories with serious comorbidity and body mass index (BMI) of 30.0 to 30.9 in adult skilled nursing current use of 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 therapy Non-ischemic cardiomyopathy (Multi) Other primary cardiomyopathies Persistent atrial fibrillation (Multi) Atrial fibrillation Hypertension, benign Essential hypertension, benign 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 congestive heart failure, NYHA class 2 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 BMI 31.0-31.9,adult Former smoker Personal history of tobacco use, presenting hazards to health Lipid screening Screening for lipoid disorders documented in this encounter [facility] Work Phone: Evaluation note* Diagnosis Cervical paraspinal muscle spasm- Primary Spasm of muscle documented in this encounter [facility] HealthcareEvaluation note* Diagnosis Cervical paraspinal muscle spasm- Primary Spasm of muscle documented in this encounter [facility] HealthcareEvaluation note* Diagnosis Cervical paraspinal muscle spasm- Primary Spasm of muscle documented in this encounter [facility] HealthcareEvaluation note* Diagnosis Cervical paraspinal muscle spasm- Primary Spasm of muscle documented in this encounter [facility] HealthcareEvaluation note* Diagnosis Cervical paraspinal muscle spasm- Primary Spasm of muscle documented in this encounter [facility] HealthcareEvaluation note* Diagnosis Cervical paraspinal muscle spasm- Primary Spasm of muscle documented in this encounter [facility] HealthcareEvaluation note* Diagnosis Dilated cardiomyopathy (Multi)- Primary Other primary cardiomyopathies Paroxysmal atrial fibrillation (Multi) Atrial fibrillation Hypertension, benign Essential hypertension, benign Obstructive sleep apnea syndrome Obstructive sleep apnea (adult) (pediatric) Class 1 obesity due to excess calories with serious comorbidity and body mass index (BMI) of 30.0 to 30.9 in adult 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 Pre-operative examination Unspecified pre-operative examination Medically noncompliant Medication course changed 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 congestive heart failure, NYHA class 2 Atrial fibrillation, currently in sinus rhythm Abnormal EKG Nonspecific abnormal electrocardiogram (ECG) (EKG) White coat syndrome with diagnosis of hypertension skilled nursing current use of 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 therapy Obstructive sleep apnea syndrome Obstructive sleep apnea (adult) (pediatric) Non-ischemic cardiomyopathy (Multi) Other primary cardiomyopathies Former smoker Personal history of tobacco use, presenting hazards to health Body mass index (BMI) 30.0-30.9, adult documented in this encounter [facility] Work Phone: Evaluation note* Diagnosis Onset Date Resolution Status Admit Date Atrial fibrillation acute December 24, 2024 3:34pm Cervical spondylosis acute [facility] 2024 3:34pm Elevated cholesterol acute [facility] 2024 3:34pm HALEY (generalized anxiety disorder) acute December 24, 2024 3:34pm Heart failure with improved ejection fraction (HFimpEF) acute 2024 3:34pm Hypertension acute December 24, 2024 3:34pm Neck pain acute December 24 3:34pm Nonischemic cardiomyopathy acute December 24, 2024 3:34pm JANETTE (obstructive sleep apnea) acute December 24, 2024 3:34pm [facility] Work Phone: Evaluation note* Diagnosis Nasal septal deviation- Primary Deviated nasal septum Hypertrophy of nasal turbinates JANETTE (obstructive sleep apnea) Obstructive sleep apnea (adult) (pediatric) Intolerance of continuous positive airway pressure (CPAP) ventilation documented in this encounter [facility] HealthcareEvaluation note* Diagnosis Dilated cardiomyopathy (Multi)- Primary Other primary cardiomyopathies Paroxysmal atrial fibrillation (Multi) Atrial fibrillation Hypertension, benign Essential hypertension, benign Obstructive sleep apnea syndrome Obstructive sleep apnea (adult) (pediatric) Class 1 obesity due to excess calories with serious comorbidity and body mass index (BMI) of 30.0 to 30.9 in adult 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 congestive heart failure, NYHA class 2 Non-ischemic cardiomyopathy (Multi) Other primary cardiomyopathies Medication course changed Hypertension, benign Essential hypertension, benign Atrial fibrillation, currently in sinus rhythm Medically noncompliant Former smoker Personal history of tobacco use, presenting hazards to health Body mass index (BMI) 30.0-30.9, adult 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 documented in this encounter [facility] Work Phone: Evaluation note* Diagnosis Status post nasal septoplasty- Primary Other postprocedural status Obstructive sleep apnea syndrome Obstructive sleep apnea (adult) (pediatric) documented in this encounter [facility] HealthcareEvaluation note* Diagnosis Status post nasal septoplasty- Primary Other postprocedural status documented in this encounter [facility] HealthcareEvaluation note* Diagnosis Status post nasal septoplasty- Primary Other postprocedural status Chronic congestive heart failure, unspecified heart failure type (HCC) documented in this encounter [facility] HealthcareEvaluation note* Diagnosis Dilated cardiomyopathy (Multi)- Primary Other primary cardiomyopathies Paroxysmal atrial fibrillation (Multi) Atrial fibrillation Hypertension, benign Essential hypertension, benign Obstructive sleep apnea syndrome Obstructive sleep apnea (adult) (pediatric) Class 1 obesity due to excess calories with serious comorbidity and body mass index (BMI) of 30.0 to 30.9 in adult skilled nursing current use of 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 therapy Medically noncompliant- Primary Non-ischemic cardiomyopathy (Multi) Other primary cardiomyopathies Persistent atrial fibrillation (Multi) Atrial fibrillation skilled nursing current use of 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 therapy Hypertension, benign Essential hypertension, benign Body mass index (BMI) 30.0-30.9, adult Obstructive sleep apnea syndrome Obstructive sleep apnea (adult) (pediatric) documented in this encounter [facility] Work Phone: History general Narrative - Reported* Type Description Date Medical History fusion c4 5 6 7 Medical History ruptured liver/ hep c Medical History gall bladder Medical History kidney stones Surgical History rotator cuff repair Surgical History broken jaw Surgical History amputated fingers Hospitalization History see above [facility] Other History general Narrative - Reported* Type Description Date Medical History fusion c4 5 6 7 Medical History ruptured liver/ hep c Medical History gall bladder Medical History kidney stones Medical History Nonischemic Cardiomyopathy Medical History HFrEF Surgical History rotator cuff repair Surgical History broken jaw Surgical History amputated fingers Surgical History [facility] 01/2023 Hospitalization History see above [facility] Other [facility] general Narrative - Reported* Type Description Date Medical History fusion c4 5 6 7 Medical History ruptured liver/ hep c Medical History gall bladder Medical History kidney stones Medical History Nonischemic Cardiomyopathy Medical History HFrEF Medical History JANETTE Surgical History rotator cuff repair Surgical History broken jaw Surgical History amputated fingers Surgical History [facility] 01/2023 Hospitalization History see above [facility] Other [facility] general Narrative - Reported* Type Description Date Medical History fusion c4 5 6 7 Medical History ruptured liver/ hep c Medical History gall bladder Medical History kidney stones Medical History Nonischemic Cardiomyopathy Medical History HFrEF Medical History JANETTE Surgical History rotator cuff repair Surgical History broken jaw Surgical History amputated fingers Surgical History [facility] 01/2023 Surgical History CHF 01/2023 Hospitalization History see above [facility] Other [facility] general Narrative - Reported* Type Description Date Medical History fusion c4 5 6 7 Medical History ruptured liver/ hep c Medical History gall bladder Medical History kidney stones Medical History Nonischemic Cardiomyopathy Medical History HFrEF Medical History JANETTE Medical History Atrial fibrillation Surgical History rotator cuff repair Surgical History broken jaw Surgical History amputated fingers Surgical History [facility] 01/2023 Surgical History CHF 01/2023 Hospitalization History see above [facility] Other History of Present illness Narrative* The [...] medication regimen. He denies medication side effects. [facility] 250 DO Work Phone: History of Present [...] medication regimen. He denies medication side effects. [facility] 600 DO Work Phone: Hospital Discharge instructions Additional Instructions DISCHARGE INSTRUCTIONS FOR CARDIAC GETTER WELDER PHONE NUMBER OF YOUR PHYSICIAN: [phone] PROCEDURE: Heart Cath The following instructions have [...] cold, numb, blue or white, call the astronaut mission specialist immediately. 4. ACTIVITY: You are advised to [...] bottle, follow the instructions on the bottle. [facility] is not responsible for incorrect prescription information provided by the patient during their visit. Do not stop your medications without consulting your health care provider. Please take the list with you to your next doctor's appointment.[facility] Work Phone: Hospital Discharge instructions Additional Instructions Apply ice to left ankle as needed. Elevate left ankle as needed. Apple MATT wrap to left ankle as needed.[facility] Work Phone: InstructionsNot on filedocumented in this encounter [facility] Author Kings Banegas [facility] Note Date/Time April 17, 2025 4:59 pm [facility] [address] [place] [address] Cardiology Progress Note Signed Patient: Vick Mercado MR#: [id number] : 1955 Acct:[id number] Age/Sex: 70 / M Adm Date: 5 Loc: 3T Room: [address] [place] [address] Type: ADM IN Attending Dr: Adonay Mai MD Copies to: ~ Date of Service: 04/17/2025 Subjective Principal diagnosis: Decompensated systolic heart failure with mildly reduced ejection fraction Interval history: Mr. Mercado is a 70 year old male with history of nonischemic cardiomyopathy confirmed by cardiac catheterization couple years ago. He follows in our officewith Dr. Neal. He presented with progressive dyspnea without lower extremity edema, questionable orthopnea, no significant weight gain. Has been compliant with medical therapy. His last echocardiogram about a year ago showed ejection fraction around 50%. He has been treated with beginning dose of carvedilol and Entresto. In the past did not tolerate spironolactone due to gynecomastia. Thepatient has remote history of atrial fibrillation currently on Coumadin but no antiarrhythmic therapy. On presentation his x-ray shows evidence of increased vascular markings, his BNP was just over 700 pg/mL, his troponin was mildly elevated in a flat pattern that is not consistent with ACS. He denies any chestpain or syncope. He is non-smoker nondiabetic, renal function was normal, CBC was normal and his EKG revealed normal sinus rhythm with nonspecific ST and T changes. Echocardiogram revealed ejection fraction 40?45% with no significant valvular disease. Discussed the case with the patient at length. I recommendedtitration of heart failure therapy indicating that ideally he should be on 25 mgtwice daily of carvedilol if he can tolerated and on 97/103 mg twice daily of Entresto, since he is intolerant to spironolactone we can use eplerenone later. SGLT2 inhibitors should be considered. The patient is receiving IV Lasix and isimproving his respiratory status, my expectation is possible discharge home tomorrow. Cardiology follow-up 04/17/2025: Patient is stable with no dyspnea during casual activities, tolerated increasing carvedilol and Entresto without a problem. No congestion on his lung examination, card examination was unremarkable. No lowerextremity edema or ascites. Lab afebrile stable. Patient discharged home on present medications and follow-up in our office with Dr. Neal as scheduled Exam Physical Exam Vital Signs: Temp Pulse Resp BP Pulse Ox O2 Del Method O2 Flow Rate 97.8 F 70 17 119/74 97 Room Air 5 04/17/25 08:00 04/17/25 11:59 04/17/25 11:59 04/17/25 11:59 04/17/25 11:59 04/17/25 11:59 04/17/25 05:42 Const General: cooperative, comfortable and no acute distress Nutritional Appearance: average body habitus and other (His weight measurement is inaccurate and need to be fixed) Orientation: alert, awake and oriented x3 HEENT Head: normal to inspection, normocephalic and atraumatic Ears: hearing grossly normal bilaterally Nose: external nose normal Face and sinus: normal facial exam Eyes Conjunctivae: conjunctivae normal Pupils: PERRL Neck Neck: trachea midline and supple Neck mass: No Thyroid: thyroid normal Carotids: normal carotid upstroke Resp Effort & Inspection: normal respiratory effort Auscultation: crackles Cardio Jugular venous pressure: no JVD Palpation: normal PMI Rate: regular rate Rhythm: regular rhythm Heart Sounds: S1 normal and S2 normal GI Inspection: normal to inspection Palpation: soft and no hepatosplenomegaly Auscultation: normal bowel sounds Extrem General: no clubbing, cyanosis or edema Objective Labs 04/15/25 19:02 04/17/25 10:48 Labs: Laboratory Results - last 24 hr 04/17/25 04/17/25 06:33 10:48 PT 13.6 H INR 1.2 PHA Creatinine Clear 97.89 Sodium 136 Potassium 3.9 Chloride 102 Carbon Dioxide 25.9 Anion Gap TNP BUN 24 Creatinine 0.74 Est GFR (CKD-EPI) > 60.0 Glucose 127 H Calcium 9.2 A&P - Cardiology (1) Acute exacerbation of CHF (congestive heart failure): Assessment/Problem Details: Ejection fraction 40-45%, patient has been compliant with medical therapy. Recently there has been interruption of his routine by multiple travels. Patient is currently not on appropriate dosing of GDMT Plan: Switch to oral Lasix, continue other medications for heart failure, discharged home today Code(s): I50.9 - Heart failure, unspecified (2) Paroxysmal A-fib: Assessment/Problem Details: Not on antiarrhythmic therapy but on Coumadin, currently in sinus rhythm Plan: Continue Coumadin Code(s): I48.0 - Paroxysmal atrial fibrillation (3) Nonischemic cardiomyopathy: Assessment/Problem Details: Confirmed by cardiac catheterization couple years ago Plan: No further cardiac ischemia workup Code(s): I42.8 - Other cardiomyopathies (4) JANETTE (obstructive sleep apnea): Assessment/Problem Details: For the most part he has been compliant with CPAP machine except when he travels Plan: Utilize CPAP machine as prescribed, try to lose weight Code(s): G47.33 - Obstructive sleep apnea (adult) (pediatric) Documented By: Kings Banegas MD, LOCATED WITHIN [facility] 5 [id number] Signed By: <Electronically signed by MD DUANE Banegas> 04/17/25 1659 [facility] Work Phone: Reason for referral (narrative)* Consultation (Routine) - Authorized Specialty Diagnoses / Procedures Referred By Contac t Referred To Contact Cardiology Diagnoses Non-ischemic cardiomyopathy (CMS/HCC) 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 congestive heart failure, NYHA class 2 (CMS/HCC) Procedures Follow Up In Cardiology Mary Neal MD [address] [place] [id number] Mary Neal MD [address] [place] [id number] Referral ID Status Reason Start Date Expiration Date V isits Requested Visits Authorized [id number] Authorized 09/29/2023 09/28/2024 1 1 [facility] Work Phone: Reason for referral (narrative)* Consultation (Routine) - Authorized Specialty Diagnoses / Procedures Referred By Contac t Referred To Contact Cardiology Diagnoses 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 congestive heart failure, NYHA class 2 (CMS/HCC) Persistent atrial fibrillation (CMS/HCC) Procedures Follow Up In Cardiology Mary Neal MD [address] [facility] [address] [place] [address] Mary Neal MD [address] [facility] [address] [place] [address] Referral ID Status Reason Start Date Expiration Date V isits Requested Visits Authorized [id number] Authorized 11/10/2023 11/09/2024 1 1 [facility] Work Phone: Reason for referral (narrative)No reason for referral [facility]: Reason for visit Narrative* Rehabilitation - Outpatient (Routine) - Authorized Specialty Diagnoses / Procedures Referred By Contac t Referred To Contact Physical Therapy Diagnoses Spondylolysis, cervical region Procedures OR PHYSICAL THERAPY EVALUATION LOW COMPLEX 20 MINS OR OFFICE/OUTPATIENT [facility] Jairo Corbin MD [address] [place] [address] Phone: tel: fax: [facility] [address] [address] Phone: tel: fax: Referral ID Status Reason Start Date Expiration Date V isits Requested Visits Authorized [id number] Authorized 09/06/2024 10/02/2024 30 30 [facility] for [facility] N[facility]ative* Rehabilitation - Outpatient (Routine) - Authorized Specialty Diagnoses / Procedures Referred By Contac t Referred To Contact Physical Therapy Diagnoses Spondylolysis, cervical region Procedures OR THER PX 1/> AREAS EACH 15 MIN NEUROMUSC REEDUCA OR THERAPEUTIC PX 1/> AREAS EACH 15 MIN EXERCISES OR MANUAL THERAPY TQS 1/> REGIONS EACH 15 MINUTES PHYS/OCC THERAPY Jairo Corbin MD [address] [place] [address] Phone: tel: fax: [facility] [address] [address] Phone: tel: fax: Referral ID Status Reason Start Date Expiration Date V isits Requested Visits Authorized [id number] Authorized 10/03/2024 11/03/2024 30 30 [facility] HealthcareReason for visit Narrative* Rehabilitation - Outpatient (Routine) - Authorized Specialty Diagnoses / Procedures Referred By Brandee t Referred To Contact Physical Therapy Diagnoses Spondylolysis, cervical region Procedures OR THER PX 1/> AREAS EACH 15 MIN NEUROMUSC REEDUCA OR THERAPEUTIC PX 1/> AREAS EACH 15 MIN EXERCISES OR MANUAL THERAPY TQS 1/> REGIONS EACH 15 MINUTES PHYS/OCC THERAPY SS Jairo Corbin MD [address] [place] [address] Phone: tel: fax: [facility] [address] [address] Phone: tel: fax: Referral ID Status Reason Start Date Expiration Date V isits Requested Visits Authorized [id number] Authorized 10/03/2024 10/02/2025 30 30 [facility] Chief Complaint and Reason for Visit Chief [...] fraction (HFimpEF) Hypertension Nonischemic cardiomyopathy Chief Complaint Admit Date left ankle swelling December 24, 2024 3:3 4pm Reason for Visit Admit Date Atrial fibrillation December 24, 2024 3:3 4pm Cervical spondylosis December 24, 2024 3: 34pm Elevated cholesterol December 24, 2024 3: 34pm HALEY (generalized anxiety disorder) December 24, 2024 3:34pm Heart failure with improved ejection fra ction (HFimpEF) December 24, 2024 3:34pm Hypertension December 24, 2024 3:3 4pm Neck pain December 24, 2024 3:3 4pm Nonischemic cardiomyopathy December 24, 2 025 3:34pm JANETTE (obstructive sleep apnea) December 3:34pm Chief Complaint Admit Date left ankle swelling December 24, 2024 3:3 4pm elevated trop December 25, 2024 12: 48am Reason for Visit Admit Date Atrial fibrillation December 24, 2024 3:3 4pm Cervical spondylosis December 24, 2024 3: 34pm Heart failure with improved ejection fra ction (HFimpEF) December 24, 2024 3:34pm Hypertension December 24, 2024 3:3 4pm Localized swelling of left lower leg [facility] 2024 3:34pm Neck pain December 24, 2024 3:3 4pm Nonischemic cardiomyopathy December 24, 2 025 3:34pm JANETTE (obstructive sleep apnea) December 3:34pm Elevated troponin December 25, 2024 12: 48am Hypertension December 25, 2024 12: 48am Localized swelling of left lower leg [facility] 2024 12:48am Nonischemic cardiomyopathy December 25, 2 025 12:48am JANETTE (obstructive sleep apnea) December 12:48am Paroxysmal A-fib December 25, 2024 12: 48am Reason for Visit Admit Date Atrial fibrillation December 24, 2024 3:3 4pm Cervical spondylosis December 24, 2024 3: 34pm Heart failure with improved ejection fra ction (HFimpEF) December 24, 2024 3:34pm Localized swelling of left lower leg Mar 2024 3:34pm Neck pain December 24, 2024 3:3 4pm Nonischemic cardiomyopathy December 24, 2 025 3:34pm JANETTE (obstructive sleep apnea) December 3:34pm Hypertension December 24, 2024 3:3 4pm Localized swelling of left lower leg Mar 2024 12:48am Nonischemic cardiomyopathy December 25 2 025 12:48am JANETTE (obstructive sleep apnea) December 12:48am Elevated troponin December 25, 2024 12: 48am Hypertension December 25, 2024 12: 48am Paroxysmal A-fib December 25, 2024 12: 48am Chief Complaint Admit Date left ankle swelling December 24, 2024 3:3 4pm elevated trop December 25, 2024 12: 48am deviated septum February 13, 2025 11:00 am 3 month follow up March 11, 2025 3:33p m Reason for Visit Admit Date Atrial fibrillation December 24, 2024 3:3 4pm Cervical spondylosis December 24, 2024 3: 34pm Heart failure with improved ejection fra ction (HFimpEF) December 24, 2024 3:34pm Localized swelling of left lower leg Mar 2024 3:34pm Neck pain December 24, 2024 3:3 4pm Nonischemic cardiomyopathy December 24, 2 025 3:34pm JANETTE (obstructive sleep apnea) December 3:34pm Hypertension December 24, 2024 3:3 4pm Localized swelling of left lower leg Mar 2024 12:48am Nonischemic cardiomyopathy December 25, 2 025 12:48am JANETTE (obstructive sleep apnea) December 12:48am Elevated troponin December 25, 2024 12: 48am Hypertension December 25, 2024 12: 48am Paroxysmal A-fib December 25, 2024 12: 48am Atrial fibrillation March 11, 2025 3:33p m Cervical spondylosis March 11, 2025 3:33 pm Heart failure with improved ejection fra ction (HFimpEF) March 11, 2025 3:33pm MCI (mild cognitive impairment) March 3:33pm Neck pain March 11, 2025 3:33p m Nonischemic cardiomyopathy March 11 3:33pm Opiate analgesic use agreement exists Araceli marie 2024 3:33pm JANETTE (obstructive sleep apnea) March 11, 2025 3:33pm Chief Complaint Admit Date deviated septum February 13, 2025 11:00 am 3 month follow up March 11, 2025 3:33p m esophagitis March 22, 2025 1:10 pm sob April 15, 2025 11:1 8pm Reason for Visit Admit Date Atrial fibrillation March 11, 2025 3:33p m Benign prostatic hyperplasia with lower urinary tract symptoms March 11, 2025 3:33pm Cervical spondylosis March 11, 2025 3:33 pm Heart failure with improved ejection fra ction (HFimpEF) March 11, 2025 3:33pm MCI (mild cognitive impairment) March 3:33pm Neck pain March 11, 2025 3:33p m Nonischemic cardiomyopathy March 11 3:33pm Opiate analgesic use agreement exists Araceli marie 2024 3:33pm JANETTE (obstructive sleep apnea) March 11, 2025 3:33pm GERD (gastroesophageal reflux disease) J une 2024 1:10pm History of esophageal stricture March 1:10pm Acute exacerbation of CHF (congestive he art failure) April 15, 2025 11:18pm Acute exacerbation of chronic heart fail ure April 15, 2025 11:18pm Orthopnea April 15, 2025 11:1 8pm Paroxysmal A-fib April 15, 2025 11:1 8pm Sleep apnea April 15, 2025 11:1 8pm Chief Complaint Admit Date deviated septum February 13, 2025 11:00 am 3 month follow up March 11, 2025 3:33p m esophagitis March 22, 2025 1:10 pm sob April 16, 2025 11:1 2am Reason for Visit Admit Date Atrial fibrillation March 11, 2025 3:33p m Benign prostatic hyperplasia with lower urinary tract symptoms March 11, 2025 3:33pm Cervical spondylosis March 11, 2025 3:33 pm Heart failure with improved ejection fra ction (HFimpEF) March 11, 2025 3:33pm MCI (mild cognitive impairment) March 3:33pm Neck pain March 11, 2025 3:33p m Nonischemic cardiomyopathy March 11 3:33pm Opiate analgesic use agreement exists Ju ne 2024 3:33pm JANETTE (obstructive sleep apnea) March 11, 2025 3:33pm GERD (gastroesophageal reflux disease) J une 2024 1:10pm History of esophageal stricture March 1:10pm Acute exacerbation of CHF (congestive he art failure) April 16, 2025 11:12am Acute exacerbation of chronic heart fail ure April 16, 2025 11:12am Nonischemic cardiomyopathy April 16 11:12am Orthopnea April 16, 2025 11:1 2am JANETTE (obstructive sleep apnea) April 16, 2025 11:12am Paroxysmal A-fib April 16, 2025 11:1 2am Sleep apnea April 16, 2025 11:1 2am Chief Complaint Admit Date deviated septum February 13, 2025 11:00 am 3 month follow up March 11, 2025 3:33p m esophagitis March 22, 2025 1:10 pm sob April 16, 2025 11:1 2am Amb Documentation April 18, 2025 8:36 am Office Visit April 22, 2025 2:32 pm Chief Complaint Admit Date deviated septum February 13, 2025 11:00 am 3 month follow up March 11, 2025 3:33p m esophagitis March 22, 2025 1:10 pm sob April 16, 2025 11:1 2am Amb Documentation April 18, 2025 8:36 am Office Visit April 22, 2025 2:32 pm [facility] May 01, 2025 3:55 pm Reason for Visit Admit Date Atrial fibrillation March 11, 2025 3:33p m Benign prostatic hyperplasia with lower urinary tract symptoms March 11, 2025 3:33pm Cervical spondylosis March 11, 2025 3:33 pm Heart failure with improved ejection fra ction (HFimpEF) March 11, 2025 3:33pm MCI (mild cognitive impairment) March 3:33pm Neck pain March 11, 2025 3:33p m Nonischemic cardiomyopathy March 11 3:33pm Opiate analgesic use agreement exists Araceli ne 2024 3:33pm JANETTE (obstructive sleep apnea) March 11, 2025 3:33pm GERD (gastroesophageal reflux disease) J une 2024 1:10pm History of esophageal stricture March 1:10pm Nonischemic cardiomyopathy April 16 11:12am JANETTE (obstructive sleep apnea) April 16, 2025 11:12am Acute exacerbation of CHF (congestive he art failure) April 16, 2025 11:12am Acute exacerbation of chronic heart fail ure April 16, 2025 11:12am Orthopnea April 16, 2025 11:1 2am Paroxysmal A-fib April 16, 2025 11:1 2am Sleep apnea April 16, 2025 11:1 2am ASHD (arteriosclerotic heart disease) Ju ly 2024 2:32pm Atrial fibrillation April 22, 2025 2:32 pm Hypercholesterolemia April 22, 2025 2:3 2pm JANETTE (obstructive sleep apnea) April 22, 2025 2:32pm Orthopnea April 22, 2025 2:32 pm Acute on chronic HFrEF (hear t failure with reduced ejection fraction) April 22, 2025 2:32pm ASHD (arteriosclerotic heart disease) Ju ly 2024 3:55pm Atrial fibrillation May 01, 2025 3:55 pm Chronic HFrEF (heart failure with reduce d ejection fraction) May 01, 2025 3:55pm Hypercholesterolemia May 01, 2025 3:5 5pm IFG (impaired fasting glucose) April 3:55pm Ischemic cardiomyopathy May 01, 2025 3:55pm Medicare annual wellness visit, subseque nt May 01, 2025 3:55pm JANETTE (obstructive sleep apnea) May 01, 2025 3:55pm Screening PSA (prostate specific antigen ) May 01, 2025 3:55pm Orthopnea May 01, 2025 3:55 pm Acute on chronic HFrEF (hear t failure with reduced ejection fraction) May 01, 2025 3:55pm Family History No Family History Records Found [...] Non-ischemic cardiomyopathy (Multi) Procedures Transthoracic Echo Complete OR ECHO TTHRC R-T 2D W/WOM-MODE COMPL SPEC&COLR D Mary Nael MD [address] [place] [address] Referral ID Status Reason Start Date Expiration Date Visits Requested Visits Authorized [id number] Pending Review Perform Procedure 01/30/2024 01/29/2025 1 1 Specialty Diagnoses / Procedures Referred By Contac t Referred To Contact Cardiology Diagnoses Persistent atrial fibrillation (Multi) Procedures Follow Up In Cardiology Mary Neal MD [address] [place] [address] Mary Neal MD [address] [place] [address] Referral ID Status Reason Start Date Expiration Date V isits Requested Visits Authorized [id number] Authorized 01/30/2024 01/29/2025 1 1 Specialty Diagnoses / Procedures Referred By Contac t Referred To Contact Diagnoses Persistent atrial fibrillation (Multi) Procedures ECG 12 Lead Mary Neal MD [address] [facility] [address] [place] [address] Referral ID Status Reason Start Date Expiration Date V isits Requested Visits Authorized [id number] Authorized 01/30/2024 01/29/2025 1 1 Specialty Diagnoses / Procedures Referred By Contac t Referred To Contact Diagnoses Paroxysmal atrial fibrillation (CMS/HCC) Procedures ECG 12 Lead Karlo Aldridge, DIRECTOR OF AVIATION-FUSION ANALYST [address] [facility] [address] [place] [address] Referral ID Status Reason Start Date Expiration Date V isits Requested Visits Authorized [id number] Pending Review 09/07/2023 09/06/2024 1 1 Specialty Diagnoses / Procedures Referred By Contac t Referred To Contact Cardiology Diagnoses Paroxysmal atrial fibrillation (CMS/HCC) Procedures Follow Up In Cardiology Luis Carlos Karlo K, DIRECTOR OF AVIATION-FUSION ANALYST [address] [facility] [address], [address] [place] [address] Mary Neal MD [address] [facility] [address] [place] [address] Referral ID Status Reason Start Date Expiration Date V isits Requested Visits Authorized [id number] Authorized 09/05/2023 09/04/2024 1 1 Additional Source Comments REASON FOR VISIT (unrecogniz ed section and content) Reason Comments Follow-[place] [facility] [place] 04[place]17 Reason Comments Nasal Congestion C/o nasal valve missael apse / recently hospitalized for not being able to breath Reason Comments Post-op 1 month miguel a Septopl asty Reason Comments Post-op Reason Comments Follow-up 6 month Follow up fo r Coronary Artery Disease Specialty Diagnoses / Procedures Referred By Brandee t Referred To Contact Cardiology Diagnoses 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 congestive heart failure, NYHA class 2 Procedures Follow Up In Cardiology Mary Neal MD [address] [facility] [address] [place] [address] Phone: tel: fax: Mary Neal MD [address] [place] [address] [address] [place] [address] Phone: tel: fax: Referral ID Status Reason Start Date Expiration Date V isits Requested Visits Authorized [id number] Authorized 07/30/2024 07/30/2025 1 1 Reason Onset Date Comments re: PT today 12/25/2024 fu 12/31/2024 Final Check 01/09/2025 Reason Comments Nasal Congestion Discuss surgery Reason Onset Date Comments Missed PT 11/28/2024 FU 12/03/2024 Reason Comments Pre-op Clearance POC-Dr. Junito van septum, pending surgery date Specialty Diagnoses / Procedures Referred By Brandee t Referred To Contact Diagnoses Pre-operative examination Procedures ECG 12 Lead Mary Neal MD [address] [address] Phone: tel: fax: Referral ID Status Reason Start Date Expiration Date V isits Requested Visits Authorized [id number] Authorized 11/30/2024 11/30/2025 1 1 Reason Comments Follow-up 4 month Specialty Diagnoses / Procedures Referred By Contac t Referred To Contact Cardiology Diagnoses Non-ischemic cardiomyopathy (Multi) Procedures Follow Up In Cardiology Karlo Aldridge, DIRECTOR OF AVIATION-FUSION ANALYST [address] [facility] [place] [address] Phone: tel: fax: Mary Neal MD [address] [facility] [address] [place] [address] Phone: tel: fax: Referral ID Status Reason Start Date Expiration Date V isits Requested Visits Authorized [id number] Authorized 03/21/2024 03/21/2025 1 1 Reason Comments Pre-op Clearance Dental Work 02/03 Specialty Diagnoses / Procedures Referred By Contac t Referred To Contact Cardiology Diagnoses 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 congestive heart failure, NYHA class 2 (Multi) Persistent atrial fibrillation (Multi) Procedures Follow Up In Cardiology Mary Neal MD [address] [place] [address] Mary Neal MD [address] [facility] [address] [place] [address] Referral ID Status Reason Start Date Expiration Date V isits Requested Visits Authorized [id number] Authorized 11/10/2023 11/09/2024 1 1 Reason Comments Follow-up 6 weeks [facility] [place] - [place] [facility] Specialty Diagnoses / Procedures Referred By Contac t Referred To Contact Cardiology Diagnoses Non-ischemic cardiomyopathy (CMS/HCC) 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 congestive heart failure, NYHA class 2 (CMS/HCC) Procedures Follow Up In Cardiology Mary Neal MD [address] [place] [address] Mary Neal MD [address] [facility] [address] [place] [address] Referral ID Status Reason Start Date Expiration Date V isits Requested Visits Authorized [id number] Authorized 09/29/2023 09/28/2024 1 1 TCM Reason Comments Follow-up 2wk Specialty Diagnoses / Procedures Referred By Brandee t Referred To Contact Cardiology Diagnoses Paroxysmal atrial fibrillation (CMS/HCC) Procedures Follow Up In Cardiology Karlo Aldridge APRN-FUSION ANALYST [address] [facility] [address], [address] [place] [address] Mary Neal MD [address] [facility] [address] [place] [address] Referral ID Status Reason Start Date Expiration Date V isits Requested Visits Authorized [id number] Authorized 09/05/2023 09/04/2024 1 1 new referral Reason Comments Pre-op Clearance Follow-up Test results 3 month Follow upWellnessFRMCsinusesEye Issues/ Swelling on [id number] COVID +COVIDSick- [phone] Care Teams (unrecognized sec tion and content) Team Status: Active Member Role Status Dates Jairo Corbin DO Primary Care Provider Active Team Status: Inactive Member Role Status Dates Jairo Corbin DO Primary Care Provide r, Attending Provider Active Start: May 01, 2024 End: May 01, 2024 Team Status: Active Member Role Status Kaur Corbin DO Primary Care Provide r, Attending [...] Provider Active Start: March 23, 2024 Karlo K Aldridge , DIRECTOR OF AVIATION Attending Provider Active S tart: March 23, 2024 Team Status: Inactive Member Role Status Dates Jairo Corbin , DO Primary Care Provider Active Shalom Azar , DO Emergency Provider Active Jair Harp MD Admit Provider Active Brad Livingston , DO Attending Provider Active Bing Chong RN Other Provider Active W Bonilla Lucio , DO Other Provider Active Kings Banegas MD Other Provider Active Jorge Burger MD Other Provider Active Ruby Prince MD Other Provider Active Dano Anderson MD Other Provider Active Karlo Aldridge , DIRECTOR OF AVIATION Other Provider Active Mary Neal MD Other Provider Active Danny Teresa MD Other Provider Active Kerline Thompson MD Other Provider Active Sravani Spears , [facility] Other Provider Active Sparkle Joseph MD Other Provider Active Team Status: Inactive Member Role Status Dates Jairo Corbin , DO Primary Care Provider Active W Bonilla Lucio , DO Attending Provider Active Team Status: Inactive Member Role Status Dates Jairo Corbin , DO Primary Care Provider Active Jairo Wild , DO Attending Provider Active Fence Builder Relationship Specialty Start Date End Date Jairo Corbin, DO [address] [facility] [place] [address] [place] [address] PCP - General Internal Medicine 08/23/23 Jairo Wild DO [address] [place] [address] Referring Physician Otolaryngology 09/05/23 Fence Builder Relationship Specialty Start Date End Date Jairo Corbin, DO [address] [facility] [place] [address] PCP - General Internal Medicine 08/23/23 Jairo Wild DO [address] [place] [address] Referring Physician Otolaryngology 09/05/23 Team Status: Inactive [...] DO RES Active Start: October 21, 2023 aCr Aldridge MD Emergency Provider Active Star t: October 21, 2023 Bon Harman DO Admit Provider , Attending Provider, Other Provider Active Start: October 21, 2023 Fence Builder Relationship Specialty Start Date End Date Jairo Corbin DO [address] [place] [address] [place] [address] PCP - General Internal Medicine 08/23/23 Jairo Wild DO [address] [place] [address] Referring Physician Otolaryngology 09/05/23 Team Status: Inactive Member Role Status Dates Jairo Corbin DO Primary Care Provider Active Start: September 13, 2023 End: September 13, 2023 Jairo Wild DO Attending Provider Active S tart: September 13, 2023 End: September 13, 2023 Team Status: Inactive Member Role Status Dates Jairo Corbin DO Attending Provider Active Sta rt: November 01, 2023 End: November 01, 2023 Fence Builder Relationship Specialty Start Date End Date Jairo Corbin DO [facility] [place] [address] [place] [address] PCP - General Internal Medicine 01/30/24 Jairo Wild DO [address] [place] [address] Referring Physician Otolaryngology 09/05/23 Team Status: Inactive Member Role Status Dates Jairo Corbin DO Primary Care Provide r, Attending Provider Active Start: January 31, 2024 End: January 31, 2024 Fence Builder Relationship Specialty Start Date End Date Jairo Corbin DO [address] [place] [address] PCP - General Internal Medicine 01/30/24 Jairo Wild DO [address] [place] [address] Referring Physician Otolaryngology 09/05/23 Fence Builder Relationship Specialty Start Date End Date Jairo Corbin DO [address] [place] [address] PCP - General Internal Medicine 01/30/24 Jairo Wild DO [address] [place] [address] Referring Physician Otolaryngology 09/05/23 Fence Builder Relationship Specialty Start Date End Date Jairo Corbin MD [address] [place] [address] PCP - General Internal Medicine 04/06/23 Fence Builder Relationship Specialty Start Date End Date Jairo Corbin MD [address] [place] [phone] PCP - General Internal Medicine 04/06/23 Fence Builder Relationship Specialty Start Date End Date Jairo Corbin MD [address] [place] [address] PCP - General Internal Medicine 04/06/23 Fence Builder Relationship Specialty Start Date End Date Jairo Corbin MD [address] [facility] [place] [address] PCP - General Internal Medicine 04/06/23 Fence Builder Relationship Specialty Start Date End Date Jairo Corbin MD [address] [facility] [place] [address] PCP - General Internal Medicine 04/06/23 Fence Builder Relationship Specialty Start Date End Date Jairo Corbin MD [address] [facility] [place] [address] PCP - General Internal Medicine 04/06/23 Fence Builder Relationship Specialty Start Date End Date Jairo Corbin MD [address] [facility] [place] [address] PCP - General Internal Medicine 04/06/23 Fence Builder Relationship Specialty Start Date End Date Jairo Corbin MD [address] [facility] [place] [address] PCP - General Internal Medicine 04/06/23 Fence Builder Relationship Specialty Start Date End Date Jairo Corbin MD [address] [facility] [place] [address] PCP - General Internal Medicine 04/06/23 Fence Builder Relationship Specialty Start Date End Date Jairo Corbin MD [address] [facility] [place] [address] PCP - General Internal Medicine 04/06/23 Fence Builder Relationship Specialty Start Date End Date Jairo Corbin MD [address] [place] [address] PCP - General Internal Medicine 04/06/23 Fence Builder Relationship Specialty Start Date End Date Jairo Corbin MD [address] [place] [address] PCP - General Internal Medicine 04/06/23 Fence Builder Relationship Specialty Start Date End Date Jairo Corbin MD [address] [place] [address] PCP - General Internal Medicine 04/06/23 Fence Builder Relationship Specialty Start Date End Date Jairo Corbin DO [address] [place] [address] PCP - General Internal Medicine 01/30/24 Jairo Wild DO [address] [place] [address] Referring Physician Otolaryngology 09/05/23 Team Status: Inactive Member Role Status Dates Jairo Corbin DO Primary Care Provide r, Attending Provider Active Start: December 24, 2024 End: December 24, 2024 Team Status: Inactive Member Role Status Dates Jairo Corbin DO Primary Care Provider Active Start: December 25, 2024 End: December 25, 2024 Jorge Arango MD Admit Provider Active Start: December 25, 2024 End: December 25, 2024 Rohan Ascencio MD Attending Provider Active Star t: December 25, 2024 End: December 25, 2024 Bing Chong RN Other Provider Active Star t: December 25, 2024 End: December 25, 2024 Papo Lucio DO Other Provider Active Start : December 25, 2024 End: December 25, 2024 Kings Banegas MD Other Provider Active Start: December 25, 2024 End: December 25, 2024 Jorge Burger MD Other Provider Active Start: December 25, 2024 End: December 25, 2024 Rbuy Prince MD Other Provider Active St art: December 25, 2024 End: December 25, 2024 Dano Anderson MD Other Provider Active Start: December 25, 2024 End: December 25, 2024 Karlo Aldridge APRN Other Provider Active Start : December 25, 2024 End: December 25, 2024 Mary Neal MD Other Provider Active Start: M arch 2024 End: December 25, 2024 Danny Teresa MD Other Provider Active Start: December 25, 2024 End: December 25, 2024 Kerline Thompson MD Other Provider Active Start: arch 2024 End: December 25, 2024 Sravani Spears [facility] Other Provider Active Sta rt: December 25, 2024 End: December 25, 2024 Fence Builder Relationship Specialty Start Date End Date Jairo Corbin MD [address] [place] [phone] PCP - General Internal Medicine 04/06/23 Fence Builder Relationship Specialty Start Date End Date Jairo Corbin MD [address] [place] [address] PCP - General Internal Medicine 04/06/23 Fence Builder Relationship Specialty Start Date End Date Jairo Corbin DO [address] [place] [address] PCP - General Internal Medicine 01/30/24 Jairo Wild DO [address] [place] [address] Referring Physician Otolaryngology 09/05/23 Team Status: Inactive Member Role Status Dates Jairo Wild DO Attending Provider Active S tart: February 13, 2025 End: February 13, 2025 Fence Builder Relationship Specialty Start Date End Date Jairo Corbin PCP - General Internal Medicine 04/06/23 Fence Builder Relationship Specialty Start Date End Date Jairo Corbin DO PCP - General Internal Medicine 04/06/23 Team Status: Inactive Member Role Status Dates Jairo Corbin DO Primary Care Provide r, Attending Provider Active Start: March 11, 2025 End: March 11, 2025 Fence Builder Relationship Specialty Start Date End Date Jairo Corbin DO PCP - General Internal Medicine 04/06/23 Team Status: Inactive Member Role Status Dates Jairo Corbin DO Primary Care Provider Active Start: March 11, 2025 End: March 11, 2025 Jairo Corbin DO Attending Provider Active Sta rt: March 11, 2025 End: March 11, 2025 Team Status: Inactive Member Role Status Dates Jairo Corbin DO Primary Care Provider Active Start: March 22, 2025 End: March 22, 2025 Marty Gillette APRN Attending Provider Active Start: March 22, 2025 End: March 22, 2025 Team Status: Active Member Role Status Dates Jairo Corbin DO Primary Care Provider Active Start: April 15, 2025 Hemanth Springer Jr, MD Emergency Provider Active Start: April 15, 2025 Ziggy Evans MD Admit Provider Active S tart: April 15, 2025 Ziggy Evans MD Attending Provider Active Start: April 15, 2025 Team Status: Inactive Member Role Status Dates Jairo Corbin DO Primary Care Provider Active Start: April 16, 2025 End: April 17, 2025 Hemanth Springer Jr, MD Emergency Provider Active Start: April 16, 2025 End: April 17, 2025 Ziggy Evans MD Admit Provider Active S tart: April 16, 2025 End: April 17, 2025 Adonay Mai MD Attending Provider Active Start: April 16, 2025 End: April 17, 2025 Bing Chong RN Other Provider Active Star t: April 16, 2025 End: April 17, 2025 Papo Lucio DO Other Provider Active Start : April 16, 2025 End: April 17, 2025 Kings Banegas MD Other Provider Active Start: April 16, 2025 End: April 17, 2025 Jorge Burger MD Other Provider Active Start: April 16, 2025 End: April 17, 2025 Ruby Prince MD Other Provider Active St art: April 16, 2025 End: April 17, 2025 Dano Anderson MD Other Provider Active Start: April 16, 2025 End: April 17, 2025 Karlo Aldridge APRN Other Provider Active Start : April 16, 2025 End: April 17, 2025 Mary Neal MD Other Provider Active Start: Vijay murphy 2024 End: April 17, 2025 Danny Teresa MD Other Provider Active Start: April 16, 2025 End: April 17, 2025 Kerline Thompson MD Other Provider Active Start: Vijay arrington 2024 End: April 17, 2025 Sravani Spears , [facility]- Other Provider Active Sta rt: April 16, 2025 End: April 17, 2025 Fence Builder Relationship Specialty Start Date End Date Jairo Corbin DO PCP - General Internal Medicine 04/06/23 Team Status: Active Member Role Status Dates Jairo Corbin DO Primary Care Provider Active Start: April 18, 2025 Madeline Soni CMA Attending Provider Active Start: April 18, 2025 Team Status: Inactive Member Role Status Dates Jairo Corbin DO Primary Care Provider Active Start: April 22, 2025 End: April 22, 2025 Jairo Corbin DO Attending Provider Active Sta rt: April 22, 2025 End: April 22, 2025 Team Status: Inactive Member Role Status Dates Jairo Corbin DO Primary Care Provider Active Start: May 01, 2025 End: May 01, 2025 Jairo Corbin DO Attending Provider Active Sta rt: May 01, 2025 End: May 01, 2025 Fence Builder Relationship Specialty Start Date End Date Jairo Corbin DO [address] [place] [address] PCP - General Internal Medicine 01/30/24 Jairo Wild DO [address] [place] [place] [address] Referring Physician Otolaryngology 09/05/23 (unrecognized sect ion and content) No Status Records FoundNo Status Records FoundNo Status Records FoundNo Status Records FoundNo Status Records FoundNo Status Records FoundNo Status Records FoundNo Status Records Found INFORMATION SOURCE (unrecogn ized section and content) DATE CREATED AUTHOR 03/14/2023 [facility] DATE CREATED AUTHOR AUTHOR'S ORGANIZ ATION 05/11/2023 [facility] DATE CREATED AUTHOR AUTHOR'S ORGANIZ ATION 06/18/2023 [facility] DATE CREATED AUTHOR AUTHOR'S ORGANIZ ATION 07/13/2023 [facility] DATE CREATED AUTHOR AUTHOR'S ORGANIZ ATION 02/17/2024 [facility] DATE CREATED AUTHOR AUTHOR'S ORGANIZ ATION 04/19/2025 [facility] DATE CREATED AUTHOR AUTHOR'S ORGANIZ ATION 04/24/2025 [facility] EPIC DATE CREATED AUTHOR AUTHOR'S ORGANIZ ATION 05/16/[address] [facility] Ambulatory Goals (unrecognized section and content) Type Treatment Intervention Code Status: Full Code Goals may be documented in an alternate section FOR RECORDS PERTAINING TO PATIENTS [...] BE BASED ON THE PRIMARY CLINICAL RECORDS. [facility] provides no warranty or guarantee of the accuracy or completeness of information in this document.
[2025-05-16 09:32] LABS: Hematocrit 42.7 % (42.0-54.0); Hemoglobin 14.5 g/dL (14.0-18.0); Immature Granulocytes Abs Auto 0.03 10^3/uL (0.00-0.03); Immature Granulocytes Pct Auto 0.3 % (0.0-0.5); Lymphocytes Absolute Auto 2.7 10^3/uL (1.2-3.8); Mean Corpuscular HGB Conc 34.0 g/dL (29.9-35.2); Mean Corpuscular Hemoglobin 30.9 pg (25.9-34.0); Mean Corpuscular Volume 90.9 fL (80.0-94.0); Platelet Count 223 10^3/uL (150-450); Red Blood Count 4.70 10^6/uL (4.70-6.10); White Blood Count 9.5 10^3/uL (4.0-11.0)
[2025-05-16 10:01] LABS: Alanine Aminotransferase 26 U/L (16-63); Albumin Globulin Ratio 1.1; Albumin Level 4.1 g/dL (3.4-5.0); Alkaline Phosphatase 55 U/L (46-116); Anion Gap 12.0; Aspartate Amino Transferase 15 U/L (15-37); Blood Urea Nitrogen 15.0 mg/dL (7.0-18.0); Calcium 9.6 mg/dL (8.5-10.1); Carbon Dioxide 29.9 mmol/L (21.0-32.0); Chloride 101 mmol/L (98-107); Cholesterol 283 mg/dL (<=200); Estimated GFR (African America >60 (>=60 mL/min/1.73m^2); Estimated GFR (Non-African Ame >60 (>=60 mL/min/1.73m^2); Globulin 3.8 g/dL; Glucose 127 mg/dL (74-106); HDL Cholesterol 47 mg/dL (40-60); Potassium 4.9 mmol/L (3.5-5.1); Sodium 138 mmol/L (136-145); Thyroid Stimulating Hormone 3.408 uIU/mL (0.358-3.740); Total Protein 7.9 g/dL (6.4-8.2); Triglycerides 240 mg/dL (<=150); VLDL CHOLESTEROL 48.0 mg/dL
[2025-05-16 10:26] LABS: Folate 27.90 ng/mL (8.60-58.90)
[2025-05-17 04:07] LABS: Vitamin B12 667 pg/mL (232-1245)
== END 2025-05-16 08:41 | disposition home or self-care (01) ==
LOC: LAB 08:49
PROVIDERS: PCP Internal Medicine; Visit Provider Internal Medicine
DX: R73.01 Impaired fasting glucose (principal); D64.9 Anemia, unspecified; E78.00 Pure hypercholesterolemia, unspecified; I50.22 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 (congestive) 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; I25.5 Ischemic cardiomyopathy; Z12.5 Encounter for screening for malignant neoplasm of prostate; R53.83 Other fatigue
CPT/HCPCS: 36415; 80053; 80061; 82607; 82746; 83036; 84443; 85025; G0103

== ENCOUNTER 2025-05-29 12:28 | Outpatient (OUT) | payer MEDICARE, OTHER, SELFPAY ==
--- NOTE | 2025-05-29 | XR_ITS ---
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 There is no abnormal radiopaque foreign body. No acute bony injury. XR/XR foreign body eye RO IMPRESSION: No abnormal radiopaque foreign body. Impression dictated by: Irinoe Hernandez M.D. 05/29/2025 12:52 PM Dictation Location: [place] [address] Electronically authenticated by: [id number] Y Date: 05/29/2025 12:52
--- NOTE | 2025-05-29 12:31 | MR_ITS ---
The [address] [address] Patient Name: VICK MERCADO MRN: [id number] date: 1955 Sex: M Assigned Patient Location: MRI Current Patient Location: MRI Accession/Order Number: [id number] Exam Date: 05/29/2025 13:00 Report Date: 05/29/2025 21:02 At the request of: ARNOLD CORBIN DO Procedure: MR head/brain wo con MRI the Brain without contrast TECHNIQUE: Multiplanar T1 and T2-weighted imaging of the brain. HISTORY: Mild cognitive impairment COMPARISON: none VENTRICLES: Unremarkable BRAIN VOLUME: Generalized atrophy identified. BRAIN PARENCHYMAL SIGNAL INTENSITY: Scattered foci of increased T2/FLAIR signal intensity of the brain parenchyma is consistent with chronic small vessel ischemic changes. BLEED: None MASS EFFECT: No mass effect DIFFUSION RESTRICTION: None GRADIENT ECHO PARENCHYMAL SIGNAL LOSS: None MIDBRAIN: The midbrain structures are unremarkable. JUDAH: Unremarkable MEDULLA: Unremarkable INTERNAL AUDITORY CANALS: Unremarkable SINUSES: Unremarkable ORBITS: Grossly unremarkable MASTOIDS: Unremarkable ENHANCEMENT: No contrast enhancement given MR/MR head/brain wo con IMPRESSION: No acute intracranial process. Diffuse atrophy and chronic small vessel ischemic changes Impression dictated by: Antoni Pizano M.D. 05/29/2025 9:02 PM Dictation Location: [place] [address] Electronically authenticated by: [id number] Y Date: 05/29/2025 21:02
--- OUTSIDE RECORDS SUMMARY | 2025-05-29 12:45 | XMS_ITS | CCD ---
Author Organization [facility] Inform ion Partnership [facility] Care Team Providers Care Vpk Teacher Name Role Phone Jairo Corbin Unavailable DO Jairo Corbin Primary Care Provider [phone] DO Shalom Azar Emergency Provider [facility] MD Jair Fuller Admit Provider DO Brad [...] Provider DO Papo Lucio Attending Provider [phone] JAIRO CORBIN Admitting Unavailable SHAQUILLE, DR [...] ilable DO Jairo Corbin Primary Care Provider [phone] DO Jairo Wild Attending Provider Jairo Corbin [...] Care Provider MD Praveen Song Attending Provider [phone] Jairo Corbin MD Primary Care Provider Unavailable Primary Care Provider UnavailJairo Pitts DO Primary Care Provider Conchita MATA, Jorge Admit Provider Rohan Ascencio MD Attending Provider [phone] Bing Chong RN Other Provider Unavailable Papo Lucio DO Other Provider Kings Banegas MD Other Provider Jorge Burger MD Other Provider Ruby Prince MD Other Provider Dano Anderson MD Other Provider Karlo Aldridge APRN Other Provider Mary Neal MD Other Provider Malick MATA, Danny Layton Other Provider Kerline Thompson MD Other Provider [facility] Other Provider Jairo Wild DO Attending Provider Jairo Corbin DO Primary Care Provider Jairo Corbin DO Primary Care Provider Jaior Corbin DO Attending Provider [phone] Marty Gillette APRN Attending Provider Hemanth Springer MD Emergency Provider Ziggy Evans MD Admit Provider Ziggy Evans MD Attending Provider Hemanth Springer [...] Provider Jay MATA, Kerline Other Provider Tory [facility], Sravani Julian Other Provider Bing Chong Consulting Unavailable Rohan Ascencio Attending Unavailable Jorge Arango Admitting Unavailable [facility] Jairo Primary Care Unavailable Papo Lucio Consulting Unavailable Kings Banegas Consulting Unavailable Jorge Burger Consulting Unavail able Ruby Prince Consulting Unavailable Dano Anderson Consulting UnavailKarlo Alejanrde Consulting Unavailable Mary Neal Consulting Unavailable Danny Teresa Consulting Unavailab ramona Thompson, Kerline Consulting Unavailable Sravani Spears Consulting Unavailable [facility] Jairo Primary Care Unavailable Praveen Song Admitting Unavailable Praveen Song Attending Unavailable Jairo Wild Admitting Unavailable Jairo Wild Attending Unavailable [facility] Primary Care Unavailable Mary Neal Admitting Unavailable Mary Neal Attending Unavailable Bing Chong Consulting Unavailable Ziggy Evans Admitting Unavailable Adonay Mai Attending Unavailable [facility] Primary Care Unavailable Bing Chong Consulting Unavailable [...] sources) Corticosteroids Propensity to adverse reactions sensitivty [employer] [facility] [employer] Other (16 sources) Yxmgnss-HXX-GlO Reductase Inhibitor; Translations: [Rpexfqo-LLC-MjJ Reductase Inhibitor] Propensity to adverse reactions 02-26-20 Hives, muscle aches [facility] (5 sources) Hmg-Coa Reductase Inhibitors (Statins); Translations: [Statins] Allergy to drug (finding) Other -[facility] DO Work Phone: (12 sources) HMG-CoA reductase inhibitor; Translations: [ZEDJJBZ-UCA-ZSU REDUCTASE INHIBITORS] Drug Allergy 04-06-20 Unknown, Other (See Comments) [facility] (11 sources) Non-steroidal anti-inflammatory agent; Translations: [NSAIDS (NON-STEROIDAL ANTI-INFLAMMATORY DRUG)] Drug Intolerance 01-03-20 08 Unknown, Other (See Comments) [facility] (14 sources) Corticosteroids; Translations: [Corticosteroids (Glucocorticoids)] Allergy to substance 11-01-19 24 sensitivty [facility] (20 sources) HMG-CoA reductase inhibitor Drug Allergy 04-06-20 23 Unknown [facility] (20 sources) Other Propensity to adverse reactions 01-03-20 08 [facility] Work Phone: (4 sources) Spironolactone; Translations: [SPIRONOLACTONE] Drug Allergy 11-30-19 25 Other [facility] Work Phone: (13 sources) Spironolactone Drug Allergy 11-30-19 25 [facility] Medications Current Medications Medication Drug Class(es) Dates [...] 04-22-2025 take 2 tablets by mo [facility] every twelve hours furosemide (Lasix) 20 mg [...] ubiquinol (1 source) take 1 capsule by [facility] once daily COQ10, UBIQUINOL, ORAL Take 1 [...] 25, 2023 12:00am March 02, 2023 12:33pm [place] 7-Myz-Xdm-Fish Oil (Fish Oil) 60-90-500 mg capsule (12 sources) Start: 01-31-2024 End: 01-31-2024 take 1 capsule by mouth once daily [place] 8-Est-Oho-Fish Oil (Fish Oil) 60-90-500 mg capsule Discontinued [...] Coronary arteriosclerosis; Translations: [Atherosclerotic heart disease of [place] coronary artery without angina pectoris] Onset: Chronic [...] 8 04-05-2023 Chronic Other aftercare (3 sources) FPC (current) use of opiate analgesic; Translations: [Long-term (current) use of other medications] 03-11-2025 Episodic Other aftercare (4 sources) High risk drug monitoring status; Translations: [FPC (current) use of opiate analgesic] Episodic Other aftercare (20 sources) Long-term current use of 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; Translations: [joint terminal attack controller (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) use of 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s] Onset: 3 Resolved: 5 09-07-2023 Episodic Other aftercare (9 sources) Drug therapy finding; Translations: [FPC (current) use of opiate analgesic] 03-09-2025 Episodic Other aftercare (2 sources) FPC (current) use of 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s; Translations: [joint terminal attack controller (current) use of 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s] Onset: 3 Episodic [...] 3 Resolved: 5 Chronic Comment on above: [facility] w/o obstructive coronary disease - 01/2023 [facility] w/ mild coronary disease - 01/2023 Residual [...] examination done 11-30-2024 Unclassified (3 sources) A [facility] screening has identified you as FRAIL or [...] Four Ways to Beat the Frailty Risk [email or web address] [place].[address]/health[facility] rbm-mqx-bijesiaaof/sta g-cicofn-rlkk-ways-to- bbki-afk-whj ilty-risk 12-25-2024 Unclassified (6 sources) You have [...] 09-30-2015 Episodic Other aftercare (5 sources) Other extermination supervisor (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) drug therapy; Translations: [OTH SUPERVISOR ENGINE ASSEMBLY CURRENT DRUG THERAPY] Onset: 03-02-2023 Episodic Other aftercare (20 sources) Treatment changed; Translations: [Other custodial (current) drug therapy] Onset: 09-29-2023 Resolved: 12-31-2024 [...] gap [Moles/Vol] Not performed Normal 6.0-15.0 [facility] Comment on above: Performed By: #### B MP #### [address] Creatinine Clr Calc Pharmacy 97.89 Normal [facility] Comment on above: Result Comment: PERF ORMED BY: [place] [address] PATHOLOGIST LEGAL ADVISOR ALISSA HODGES M.D. Performed By: #### B MP #### [address] GFR/1.73 sq M.predicted MDRD (S/P/Bld) [Vol rate/Area] mL/min/{1.73_m2} Normal [facility] Comment on above: Performed By: #### B MP #### [address] Potassium Normal 3.5-5.1 [facility] Comment on above: Result Comment: Spec imen hemolyzed, redraw requested Performed By: #### B MP #### [address] Sodium Normal 136-145 [facility] Comment on above: Result Comment: Spec imen hemolyzed, redraw requested Performed By: #### B MP #### [address] Calcium [Mass/volume] in Ser um or PlasmaOrdered By: Adonay Mai on 04-17-2025 Calcium [Mass/Vol] 9.2 mg/dL 8.6-10.3 [facility] Comment on above: Performed By: #### B MP #### [address] Carbon dioxide, total [Moles /volume] in Serum or PlasmaOrdered By: Adonay Mai on 04-17-2025 CO2 [Moles/Vol] 25.9 mmol/L 21.0-31.0 [facility] Comment on above: Performed By: #### B MP #### [place] [address] [place] Chloride [Moles/volume] in S zina or PlasmaOrdered By: Adonay Mai on 04-17-2025 Chloride [Moles/Vol] 102 mmol/L 98-107 [facility] Comment on above: Performed By: #### B MP #### [address] Creatinine [Mass/volume] in Serum or PlasmaOrdered By: Adonay Mai on 04-17-2025 Creatinine [Mass/Vol] 0.74 mg/dL 0.70-1.30 [facility] Comment on above: Performed By: #### B MP #### [address] Glucose [Mass/volume] in Ser um or PlasmaOrdered By: Adonay Mai on 04-17-2025 Glucose [Mass/Vol] 127 mg/dL High 70-100 [facility] Comment on above: ADA recommended refe rence rangeRandom Glucose Reference Range is dependent on time and content of last meal. Glucose of more than 200 mg/dL in a nonstressed, ambulatory subject supports the diagnosis of Diabetes Mellitus. Result Comment: [place] om Glucose Reference Range is dependent on time and content of last meal. Glucose of more than 200 mg/dL in a nonstressed, ambulatory subject supports the diagnosis of Diabetes Mellitus. ADA recommended reference range Performed By: #### B MP #### [facility] [address] [place] [address] INR in Platelet poor plasma by Coagulation assayOrdered By: Mirna Aldridge on 04-17-2025 INR Coag (PPP) [Relative time] 1.2 {INR} [facility] Comment on above: INR Therapeutic Rang e [...] heart valves: 3 - 4.5 PERFORMED BY: [place] [address] PATHOLOGIST LEGAL ADVISOR ALISSA HODGES M.D. Performed By: #### M G, BMP, CBC, HS TROP #### [facility] [address] [place] [address] No Panel InformationOrdered By: Adonay Mai on 04-17-2025 Estimated GFR (CKD-EPI) > 60.0 mL/Min [facility] Creatinine Clearance (Chem 97.89 [facility] Potassium [Moles/volume] in Serum or PlasmaOrdered By: Adonay Mai on 04-17-2025 Potassium [Moles/Vol] 3.9 mmol/L 3.5-5.1 [facility] Comment on above: Order Comment: HEMOL YZED Result Comment: PERF ORMED BY: [place] [address] PATHOLOGIST LEGAL ADVISOR ALISSA HODGES M.D. Performed By: #### M G, BMP, CBC, HS TROP #### [facility] [address] Prothrombin time (PT)Ordered By: Mirna Aldridge on 04-17-2025 PT Coag (PPP) [Time] 13.6 s High 9.0-12.9 [facility] Comment on above: A hematocrit value g reater than 55% may lead to inaccurate results in coagulation testing. Patients having hematocrit values >55% require a special collection tube for coagulation studies. Please contact the laboratory at [phone] for redraw instructions. Order Comment: List the 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: COUMADIN/WARFARIN Result Comment: A he matocrit value greater than 55% may lead to inaccurate results in coagulation testing. Patients having hematocrit values >55% require a special collection tube for coagulation studies. Please contact the laboratory at [phone] for redraw instructions. Performed By: #### M G, BMP, CBC, HS TROP #### [facility] [address] [place] [id number] [facility] Serum or plasma anion gap de terminationOrdered By: Adonay Mai on 04-17-2025 Anion gap [Moles/Vol] TNP [facility] Comment on above: Test not performed Sodium [Moles/volume] in Ser um or PlasmaOrdered By: Adonay Mai on 04-17-2025 Sodium [Moles/Vol] 136 mmol/L 136-145 [facility] Comment on above: Order Comment: HEMOL YZED Performed By: #### M G, BMP, CBC, HS TROP #### [facility] [address] [place] [id number] [facility] Urea nitrogen [Mass/volume] in Serum or PlasmaOrdered By: Adonay Mai on 04-17-2025 Urea nitrogen [Mass/Vol] 24 mg/dL 04-26 [facility] Comment on above: Performed By: #### B MP #### [facility] [address] [place] [id number] [facility] echo transthoracicon [facility] echo transthoracic [facility] Main [place] [address] [place], [place] [id number] Echocardiogram Signed Patient: Vick Mercado MR#: [id number] : 1955 Acct:[id number] Age/Sex: 70 / M ADM Date: 04/16/25 Loc: Room: [address] [place] [address] Type: ADM IN Attending Dr: Adonay Mai MD Ordering Provider: Mirna Aldridge APRN Date of Service: 04/16/25 ECH/ECH echo transthoracic: Shortness of Breath/Dyspnea Copies to: MD Mirna Lee, BUTTON GRADER Ordering Physician: Mirna Aldridge Height: 70 in [...] Frederic Moya MD 04/16/25 1401 Normal [facility] Prothrombin Time INRon 04-16 INR Coag (PPP) [Relative time] 1.2 {INR} Normal [facility] Comment on above: Order [...] heart valves: 3 - 4.5 PERFORMED BY: [place] [address] PATHOLOGIST LEGAL ADVISOR ALISSA HODGES M.D. Performed By: #### M G, BMP, CBC, HS TROP #### [address] PT Coag (PPP) [Time] 13.3 s High 9.0-12.9 [facility] Comment on above: Order Comment: List the 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: COUMADIN/WARFARIN Result Comment: A he matocrit value greater than 55% may lead to inaccurate results in coagulation testing. Patients having hematocrit values >55% require a special collection tube for coagulation studies. Please contact the laboratory at [phone] for redraw instructions. Performed By: #### M G, BMP, CBC, HS TROP #### [place] [id number] [place] Alanine aminotransferase [En zymatic activity/volume] in Serum or PlasmaOrdered By: PROVIDER TEMP on 04-15-2025 ALT [Catalytic activity/Vol] 14 U/L 7-52 [facility] Comment on above: Performed By: #### C K, HS TROP, CMP, CBC, BNP #### [facility] [address] [place], [place] [id number] [place] Albumin [Mass/volume] in Ser um or Plasma by Bromocresol green (BCG) dye binding methoOrdered By: PROVIDER TEMP on 04-15-2025 Albumin BCG dye [Mass/Vol] 4.7 g/dL 3.5-5.7 [facility] Alkaline phosphatase [Enzyma tic activity/volume] in Serum or PlasmaOrdered By: PROVIDER TEMP on 04-15-2025 ALP [Catalytic activity/Vol] 62 U/L 34-104 [facility] Comment on above: Performed By: #### C K, HS TROP, CMP, CBC, BNP #### [facility] [address] [place] [address] Aspartate aminotransferase [ Enzymatic activity/volume] in Serum or PlasmaOrdered By: PROVIDER TEMP on 04-15-2025 AST [Catalytic activity/Vol] 18 U/L 13-39 [facility] Comment on above: Performed By: #### C K, HS TROP, CMP, CBC, BNP #### [address] BNP ser/plasOrdered By: PROV IDER TEMP on 04-15-2025 Natriuretic peptide B (Bld) [Mass/Vol] 721.0 pg/mL High 5-100 [facility] Comment on above: Result Comment: PERF ORMED BY: [place] [address] PATHOLOGIST LEGAL ADVISOR ALISSA HODGES M.D. Performed By: #### C K, HS TROP, CMP, CBC, BNP #### [address] Basophils [#/volume] in Bloo d by Automated countOrdered By: PROVIDER TEMP on 04-15-2025 Basophils (Bld) [#/Vol] 0.1 10*3/uL 0.0-0.2 [facility] Comment on above: Result Comment: PERF ORMED BY: [place] [address] PATHOLOGIST LEGAL ADVISOR ALISSA HODGES M.D. Performed By: #### C K, HS TROP, CMP, CBC, BNP #### [address] Basophils/100 leukocytes in Blood by Automated countOrdered By: PROVIDER TEMP on 04-15-2025 Basophils/100 WBC (Bld) 0.7 % . [facility] Comment on above: Performed By: #### C K, HS TROP, CMP, CBC, BNP #### [address] Bilirubin.total [Mass/volume ] in Serum or PlasmaOrdered By: PROVIDER TEMP on 04-15-2025 Bilirubin [Mass/Vol] 0.6 mg/dL 0.3-1.0 [facility] Comment on above: Performed By: #### C K, HS TROP, CMP, CBC, BNP #### [address] Calcium [Mass/volume] in Ser um or PlasmaOrdered By: PROVIDER TEMP on 04-15-2025 Calcium [Mass/Vol] 9.9 mg/dL Normal 8.6-10.3 [facility] Comment on above: Performed By: #### C K, HS TROP, CMP, CBC, BNP #### [address] Carbon dioxide, total [Moles /volume] in Serum or PlasmaOrdered By: PROVIDER TEMP on 04-15-2025 CO2 [Moles/Vol] 28.4 mmol/L Normal 21.0-31.0 [facility] Comment on above: Performed By: #### C K, HS TROP, CMP, CBC, BNP #### [address] Chloride [Moles/volume] in S zina or PlasmaOrdered By: PROVIDER TEMP on 04-15-2025 Chloride [Moles/Vol] 101 mmol/L Normal 98-107 [facility] Comment on above: Performed By: #### C K, HS TROP, CMP, CBC, BNP #### [address] Complete Blood Count Auto Di ffon 04-15-2025 Mean Corpuscular HGB Conc 34.2 g/dL Normal 32.5-35.6 [facility] Comment on above: Performed By: #### C K, HS TROP, CMP, CBC, BNP #### [address] Monocytes/100 WBC (Bld) 18.36 % Normal 0.00-20.00 [facility] Comment on above: Performed By: #### C K, HS TROP, CMP, CBC, BNP #### [address] NRBC% 0.1 /100{WBC} Normal 0-0.5 [facility] Comment on above: Performed By: #### C K, HS TROP, CMP, CBC, BNP #### [address] White Blood Count 11.1 [CFU]/mL High 4.1-10.5 [facility] Comment on above: Performed By: #### C K, HS TROP, CMP, CBC, BNP #### [address] Comprehensive Metabolic Pane allan 04-15-2025 Albumin [Mass/Vol] 4.7 g/dL Normal 3.5-5.7 [facility] Comment on above: Performed By: #### C K, HS TROP, CMP, CBC, BNP #### [address] Creatinine Clr Calc Pharmacy 61.63 Normal [facility] Comment on above: Result Comment: PERF ORMED BY: [place] [address] PATHOLOGIST LEGAL ADVISOR ALISSA HODGES M.D. Performed By: #### C K, HS TROP, CMP, CBC, BNP #### [address] GFR/1.73 sq M.predicted MDRD (S/P/Bld) [Vol rate/Area] mL/min/{1.73_m2} Normal [facility] Comment on above: Performed By: #### C K, HS TROP, CMP, CBC, BNP #### [address] Creatine kinase [Enzymatic a ctivity/volume] in Serum or PlasmaOrdered By: PROVIDER TEMP on 04-15-2025 CK [Catalytic activity/Vol] 53 U/L 30-223 [facility] Comment on above: Performed By: #### C K, HS TROP, CMP, CBC, BNP #### [address] Creatinine [Mass/volume] in Serum or PlasmaOrdered By: PROVIDER TEMP on 04-15-2025 Creatinine [Mass/Vol] 0.71 mg/dL Normal 0.70-1.30 [facility] Comment on above: Performed By: #### C K, HS TROP, CMP, CBC, BNP #### [address] ECG 12 lead ECGon 04-15-2025 ECG 12 lead ECG [facility] Main [place] [address] [place] [address] Electrocardiograph Report Signed Patient: Vick Mercado MR#: [id number] : 1955 Acct:[id number] Age/Sex: 70 / M ADM Date: 04/16/25 Loc: Room: [address] [place] [address] Type: ADM IN Attending Dr: Adonay Mai [...] in Lateral leads Confirmed by Frederic Moya ([id number]) on 04/17/2025 8:57:21 AM Referred By: Electronically Signed By: Frederic Moya Transcribed By: MUS Signed By Frederic Moya MD 04/17/25 0857 Normal [facility] Eosinophils [#/volume] in Bl ood by Automated countOrdered By: PROVIDER TEMP on 04-15-2025 Eosinophils (Bld) [#/Vol] 0.3 10*3/uL 0.0-0.45 [facility] Comment on above: Performed By: #### C K, HS TROP, CMP, CBC, BNP #### [facility] [address] [place] [address] [place] Eosinophils/100 leukocytes i n Blood by Automated countOrdered By: PROVIDER TEMP on 04-15-2025 Eosinophils/100 WBC (Bld) 2.8 % . [facility] Comment on above: Performed By: #### C K, HS TROP, CMP, CBC, BNP #### [facility] [address] Erythrocyte distribution wid th [Ratio] by Automated countOrdered By: PROVIDER TEMP on 04-15-2025 Erythrocyte distribution width (RBC) [Ratio] 13.4 % 12.0-14.8 [facility] Comment on above: Performed By: #### C K, HS TROP, CMP, CBC, BNP #### [address] Erythrocytes [#/volume] in B lood by Automated countOrdered By: PROVIDER TEMP on 04-15-2025 RBC (Bld) [#/Vol] 4.85 10*6/uL 3.90-5.60 [facility] Comment on above: Performed By: #### C K, HS TROP, CMP, CBC, BNP #### [address] Glucose [Mass/volume] in Ser um or PlasmaOrdered By: PROVIDER TEMP on 04-15-2025 Glucose [Mass/Vol] 131 mg/dL High 70-100 [facility] Comment on above: ADA recommended refe rence rangeRandom Glucose Reference Range is dependent on time and content of last meal. Glucose of more than 200 mg/dL in a nonstressed, ambulatory subject supports the diagnosis of Diabetes Mellitus. Result Comment: [place] om Glucose Reference Range is dependent on time and content of last meal. Glucose of more than 200 mg/dL in a nonstressed, ambulatory subject supports the diagnosis of Diabetes Mellitus. ADA recommended reference range Performed By: #### C K, HS TROP, CMP, CBC, BNP #### [address] Hematocrit [Volume Fraction] of Blood by Automated countOrdered By: PROVIDER TEMP on 04-15-2025 Hematocrit (Bld) [Volume fraction] 43.6 % 38.8-50.0 [facility] Comment on above: Performed By: #### C K, HS TROP, CMP, CBC, BNP #### [facility] [address] Hemoglobin [Mass/volume] in BloodOrdered By: PROVIDER TEMP on 04-15-2025 Hemoglobin (Bld) [Mass/Vol] 14.9 g/dL 13.0-17.0 [facility] Comment on above: Performed By: #### C K, HS TROP, CMP, CBC, BNP #### [facility] [address] INR in Platelet poor plasma by Coagulation assayOrdered By: PROVIDER TEMP on 04-15-2025 INR Coag (PPP) [Relative time] 1.2 {INR} Normal [facility] Comment on above: INR Therapeutic Rang e [...] M G, BMP, CBC, HS TROP #### [facility] [address] Leukocytes [#/volume] correc rehan for nucleated erythrocytes in Blood by Automated counOrdered By: PROVIDER TEMP on 04-15-2025 WBC corrected for nucl RBC Auto (Bld) [#/Vol] 11.1 10*3/uL High 4.1-10.5 [facility] Leukocytes [#/volume] in Blo od by Automated countOrdered By: PROVIDER TEMP on 04-15-2025 WBC (Bld) [#/Vol] 11.1 10*3/uL High 4.1-10.5 [facility] Comment on above: Performed By: #### C K, HS TROP, CMP, CBC, BNP #### [address] Lymphocytes [#/volume] in Bl ood by Automated countOrdered By: PROVIDER TEMP on 04-15-2025 Lymphocytes (Bld) [#/Vol] 2.5 10*3/uL 1.00-4.8 [facility] Comment on above: Performed By: #### C K, HS TROP, CMP, CBC, BNP #### [address] Lymphocytes/100 leukocytes i n Blood by Automated countOrdered By: PROVIDER TEMP on 04-15-2025 Lymphocytes/100 WBC (Bld) 22.7 % . [facility] Comment on above: Performed By: #### C K, HS TROP, CMP, CBC, BNP #### [address] MCH [Entitic mass] by Automa rehan countOrdered By: PROVIDER TEMP on 04-15-2025 MCH (RBC) [Entitic mass] 30.7 pg 27.5-35.2 [facility] Comment on above: Performed By: #### C K, HS TROP, CMP, CBC, BNP #### [facility] [address] [place] [address] MCHC Auto (RBC) [Mass/Vol]Or dered By: PROVIDER TEMP on 04-15-2025 MCHC (RBC) [Mass/Vol] 34.2 g/dL 32.5-35.6 [facility] MCV [Entitic volume] by Auto mated countOrdered By: PROVIDER TEMP on 04-15-2025 MCV (RBC) [Entitic vol] 89.7 fL 83.5-101 [facility] Comment on above: Performed By: #### C K, HS TROP, CMP, CBC, BNP #### [facility] [address] [place] [address] [place] Monocyte distribution width [Entitic volume] in Blood by AutomatedOrdered By: PROVIDER TEMP on 04-15-2025 Monocyte distribution width Auto (Bld) [Entitic vol] 18.36 % 0.00-20.00 [facility] Monocytes [#/volume] in Bloo d by Automated countOrdered By: PROVIDER TEMP on 04-15-2025 Monocytes (Bld) [#/Vol] 1.0 10*3/uL High 0.0-0.8 [facility] Comment on above: Performed By: #### C K, HS TROP, CMP, CBC, BNP #### [facility] [address] [place] [address] [place] Monocytes/100 leukocytes in Blood by Automated countOrdered By: PROVIDER TEMP on 04-15-2025 Monocytes/100 WBC (Bld) 8.7 % . [facility] Comment on above: Performed By: #### C K, HS TROP, CMP, CBC, BNP #### [facility] [facility] [address] Neutrophils [#/volume] in Bl ood by Automated countOrdered By: PROVIDER TEMP on 04-15-2025 Neutrophils (Bld) [#/Vol] 7.2 10*3/uL 1.8-7.7 [facility] Comment on above: Performed By: #### C K, HS TROP, CMP, CBC, BNP #### [facility] [address] [place] [address] [place] Neutrophils/100 leukocytes i n Blood by Automated countOrdered By: PROVIDER TEMP on 04-15-2025 Neutrophils/100 WBC (Bld) 65.1 % . [facility] Comment on above: Performed By: #### C K, HS TROP, CMP, CBC, BNP #### [facility] [address] [place] [address] No Panel InformationOrdered By: PROVIDER TEMP on 04-15-2025 Estimated GFR (CKD-EPI) > 60.0 mL/Min [facility] Creatinine Clearance (Chem 61.63 [facility] Nucleated erythrocytes [Pres ence] in Blood by Automated countOrdered By: PROVIDER TEMP on 04-15-2025 Nucleated RBC Auto Ql (Bld) 0.1 /100{WBC} 0-0.5 [facility] Partial Thromboplastin Timeo n 04-15-2025 aPTT Coag (Bld) [Time] 30.5 s Normal 25.1-36.5 [facility] Comment on above: Result Comment: A he matocrit value greater than 55% may lead to inaccurate results in coagulation testing. Patients having hematocrit values >55% require a special collection tube for coagulation studies. Please contact the laboratory at [phone] for redraw instructions. PERFORMED BY: [place] [address] PATHOLOGIST LEGAL ADVISOR ALISSA HODGES M.D. Performed By: #### M G, BMP, CBC, HS TROP #### [place] [address] [place] Platelet mean volume [Entiti c volume] in Blood by Automated countOrdered By: PROVIDER TEMP on 04-15-2025 Platelet mean volume (Bld) [Entitic vol] 8.1 fL 6.6-10.1 [facility] Comment on above: Performed By: #### C K, HS TROP, CMP, CBC, BNP #### [place] [address] [place] Platelets [#/volume] in Bloo d by Automated countOrdered By: PROVIDER TEMP on 04-15-2025 Platelets (Bld) [#/Vol] 259 10*3/uL 150-450 [facility] Comment on above: Performed By: #### C K, HS TROP, CMP, CBC, BNP #### [place] [address] [place] Potassium [Moles/volume] in Serum or PlasmaOrdered By: PROVIDER TEMP on 04-15-2025 Potassium [Moles/Vol] 4.0 mmol/L Normal 3.5-5.1 [facility] Comment on above: Performed By: #### C K, HS TROP, CMP, CBC, BNP #### [place] [address] [place] Protein [Mass/volume] in Ser um or PlasmaOrdered By: PROVIDER TEMP on 04-15-2025 Protein [Mass/Vol] 7.9 g/dL 6.4-8.9 [facility] Comment on above: Performed By: #### C K, HS TROP, CMP, CBC, BNP #### [address] Prothrombin time (PT)Ordered By: PROVIDER TEMP on 04-15-2025 PT Coag (PPP) [Time] 13.2 s High 9.0-12.9 [facility] Comment on above: A hematocrit value g reater than 55% may lead to inaccurate results in coagulation testing. Patients having hematocrit values >55% require a special collection tube for coagulation studies. Please contact the laboratory at [phone] for redraw instructions. Result Comment: A he matocrit value greater than 55% may lead to inaccurate results in coagulation testing. Patients having hematocrit values >55% require a special collection tube for coagulation studies. Please contact the laboratory at [phone] for redraw instructions. Performed By: #### M G, BMP, CBC, HS TROP #### [address] Serum globulin measurement b y calculation (mass/volume)Ordered By: PROVIDER TEMP on 04-15-2025 Globulin (S) [Mass/Vol] 3.2 g/dL [facility] Comment on above: Performed By: #### C K, HS TROP, CMP, CBC, BNP #### [address] Serum or plasma albumin/glob ulin mass ratioOrdered By: PROVIDER TEMP on 04-15-2025 Albumin/Globulin [Mass ratio] 1.5 {ratio} [facility] Comment on above: Performed By: #### C K, HS TROP, CMP, CBC, BNP #### [address] Serum or plasma anion gap de terminationOrdered By: PROVIDER TEMP on 04-15-2025 Anion gap [Moles/Vol] 11.6 mmol/L Normal 6.0-15.0 [facility] Comment on above: Performed By: #### C K, HS TROP, CMP, CBC, BNP #### [address] Sodium [Moles/volume] in Ser um or PlasmaOrdered By: PROVIDER TEMP on 04-15-2025 Sodium [Moles/Vol] 137 mmol/L Normal 136-145 [facility] Comment on above: Performed By: #### C K, HS TROP, CMP, CBC, BNP #### [address] Troponin I High Sensitivityo n 04-15-2025 Troponin I High Sensitivity 11 Normal 0-20 [facility] Comment on above: Result Comment: The Troponin units of report have been changed to meet the Chest Pain Accreditation requirement, element EC5.M1l2. Troponin units are changed from pg/ml to ng/L. Also, the decimal is removed and results are in whole numbers. PERFORMED BY: [place] [address] PATHOLOGIST LEGAL ADVISOR ALISSA HODGES M.D. Performed By: #### C K, HS TROP, CMP, CBC, BNP #### [address] Troponin I.cardiac [Mass/vol ume] in Serum or Plasma by Detection limit <= 0.01 ng/mLOrdered By: PROVIDER TEMP on 04-15-2025 Troponin I.cardiac DL <= 0.01 ng/mL [Mass/Vol] 11 ng/L 0-20 [facility] Comment on above: The Troponin units o f report have been changed to meet the Chest Pain Accreditation requirement, element EC5.M1l2. Troponin units are changed from pg/ml to ng/L. Also, the decimal is removed and results are in whole numbers. Urea nitrogen [Mass/volume] in Serum or PlasmaOrdered By: PROVIDER TEMP on 04-15-2025 Urea nitrogen [Mass/Vol] 13 mg/dL Normal 7-25 [facility] Comment on above: Performed By: #### C K, HS TROP, CMP, CBC, BNP #### [place] [address] [place] X-ray reportOrdered By: Irineo Hernandez on 04-15-2025 Study report [facility] [place] [id number] XRay Report Signed Patient: Vick Mercado MR#: [id number] : 1955 Acct:[id number] Age/Sex: 70 / M ADM Date: 5 [...] Hernandez M.D. 04/15/2025 7:28 PM Dictation Location: [place] [address] Transcribed By: [facility] 04/15/251927 Dictated By: Iirneo Hernandez II, MD 04/15/251925 Signed By: 04/15/251927 [facility] Work Phone: XR chest 2V*on 04-15-2025 XR chest 2V* [facility] [address] [place] [id number] XRay Report Signed Patient: Vick Mercado MR#: [id number] : 1955 Acct:[id number] Age/Sex: 70 / M ADM Date: 04/15/25 [...] Hernandez M.D. 04/15/2025 7:28 PM Dictation Location: [place] [address] Transcribed By: [facility] 04/15/251927 Dictated By: Irineo Hernandez II, MD 04/15/251925 Signed By: 04/15/251927 Normal [facility] aPTT in Platelet poor plasma by Coagulation assayOrdered By: YUE THOMPSON on 04-15-2025 aPTT Coag (PPP) [Time] 30.5 s 25.1-36.5 [facility] Comment on above: A hematocrit value g reater than 55% may lead to inaccurate results in coagulation testing. Patients having hematocrit values >55% require a special collection tube for coagulation studies. Please contact the laboratory at [phone] for redraw instructions. PATHOLOGY REQUEST FOR LAB CO RPon 02-19-2025 PATHOLOGY REQUEST FOR LAB [facility] Comment on above: See report. Scanned copy available in EMR. NASAL CARTILAGE [facility] No Panel InformationOrdered By: Jairo Wild on 02-13-2025 Miscellaneous Pathology Test See comment [facility] Comment on above: See report. Scanned copy available in EMR. Pathology Request for Lab Co rpon 02-13-2025 Pathology Request for Lab Richard Normal [facility] Comment on above: Order Comment: NASAL CARTILAGE Result Comment: See report. Scanned copy available in EMR. PERFORMED BY: [place] [address] PATHOLOGIST LEGAL ADVISOR TAMICA SÁNCHEZ M.D. Performed By: #### M G, BMP, CBC, HS TROP #### [address] Basic Metabolic Panelon 12-02 Anion gap [Moles/Vol] 14.4 mmol/L Normal 6.0-15.0 [facility] Comment on above: Performed By: #### M G, BMP, CBC, HS TROP #### [address] Calcium [Mass/Vol] 9.4 mg/dL Normal 8.6-10.3 [facility] Comment on above: Performed By: #### M G, BMP, CBC, HS TROP #### [address] Chloride [Moles/Vol] 95 mmol/L Low 98-107 [facility] Comment on above: Performed By: #### M G, BMP, CBC, HS TROP #### [address] CO2 [Moles/Vol] 23.7 mmol/L Normal 21.0-31.0 [facility] Comment on above: Performed By: #### M G, BMP, CBC, HS TROP #### [address] Creatinine [Mass/Vol] 0.70 mg/dL Normal 0.70-1.30 [facility] Comment on above: Performed By: #### M G, BMP, CBC, HS TROP #### [address] Creatinine Clr Calc Pharmacy 101.57 Normal [facility] Comment on above: Performed By: #### M G, BMP, CBC, HS TROP #### [place] [address] [place] GFR/1.73 sq M.predicted MDRD (S/P/Bld) [Vol rate/Area] mL/min/{1.73_m2} Normal [facility] Comment on above: Performed By: #### M G, BMP, CBC, HS TROP #### [facility] [address] [place] [address] [place] Glucose [Mass/Vol] 252 mg/dL High 70-100 [facility] Comment on above: Result Comment: [facility] Glucose Reference Range is dependent on time and content of last meal. Glucose of more than 200 mg/dL in a nonstressed, ambulatory subject supports the diagnosis of Diabetes Mellitus. ADA recommended reference range Performed By: #### M G, BMP, CBC, HS TROP #### [facility] [address] Potassium [Moles/Vol] 4.1 mmol/L Normal 3.5-5.1 [facility] Comment on above: Result Comment: Hemo lysis is present at a level that could interfere with the result. Contact lab if redraw is required Performed By: #### M G, BMP, CBC, HS TROP #### [facility] [address] [place] [address] [place] Sodium [Moles/Vol] 129 mmol/L Low 136-145 [facility] Comment on above: Performed By: #### Dung G, BMP, CBC, HS TROP #### [facility] [address] [place] [id number] [place] Urea nitrogen [Mass/Vol] 11 mg/dL Normal 7-25 [facility] Comment on above: Performed By: #### M G, BMP, CBC, HS TROP #### [facility] [address] [place] [address] [place] Basophils Auto (Bld) [#/Vol] Ordered By: Mirna Aldridge on 12-25-2024 Basophils (Bld) [#/Vol] Automated basophil count 0.0-0.2 [facility] Basophils/100 WBC Auto (Bld) Ordered By: Mirna Aldridge on 12-25-2024 Basophils/100 WBC (Bld) Automated basophil % . [facility] Calcium [Mass/volume] in Ser um or PlasmaOrdered By: Mirna Aldridge on 12-25-2024 Calcium [Mass/Vol] Calcium [Mass/volume ] in Serum or Plasma 8.6-10.3 [facility] Carbon dioxide, total [Moles /volume] in Serum or PlasmaOrdered By: Mirna Aldridge on 12-25-2024 CO2 [Moles/Vol] Carbon dioxide, tota l [Moles/volume] in Serum or Plasma 21.0-31.0 [facility] Chloride [Moles/volume] in S zina or PlasmaOrdered By: Mirna Aldridge on 12-25-2024 Chloride [Moles/Vol] Chloride [Moles/vol ume] in Serum or Plasma Low 98-107 [facility] Complete Blood Count Auto Di ffon 12-25-2024 Basophils (Bld) [#/Vol] 0.1 10*3/uL Normal 0.0-0.2 [facility] Comment on above: Result Comment: PERF ORMED BY: [facility] [address] [place] [address] PATHOLOGIST LEGAL ADVISOR TAMICA SÁNCHEZ M.D. Performed By: #### M G, BMP, CBC, HS TROP #### [facility] [address] Basophils/100 WBC (Bld) 0.5 % Normal . [facility] Comment on above: Performed By: #### M G, BMP, CBC, HS TROP #### [facility] [address] [place] [address] [place] Eosinophils (Bld) [#/Vol] 0.1 10*3/uL Normal 0.0-0.45 [facility] Comment on above: Performed By: #### M G, BMP, CBC, HS TROP #### [facility] [address] [place] [address] [place] Eosinophils/100 WBC (Bld) 0.8 % Normal . [facility] Comment on above: Performed By: #### M G, BMP, CBC, HS TROP #### [facility] [address] Erythrocyte distribution width (RBC) [Ratio] 13.3 % Normal 12.0-14.8 [facility] Comment on above: Performed By: #### M G, BMP, CBC, HS TROP #### [address] Hematocrit (Bld) [Volume fraction] 40.8 % Normal 38.8-50.0 [facility] Comment on above: Performed By: #### M G, BMP, CBC, HS TROP #### [address] Hemoglobin (Bld) [Mass/Vol] 13.9 g/dL Normal 13.0-17.0 [facility] Comment on above: Performed By: #### M G, BMP, CBC, HS TROP #### [address] Lymphocytes (Bld) [#/Vol] 1.5 10*3/uL Normal 1.00-4.8 [facility] Comment on above: Performed By: #### M G, BMP, CBC, HS TROP #### [address] Lymphocytes/100 WBC (Bld) 9.4 % Normal . [facility] Comment on above: Performed By: #### M G, BMP, CBC, HS TROP #### [address] MCH (RBC) [Entitic mass] 30.5 pg Normal 27.5-35.2 [facility] Comment on above: Performed By: #### M G, BMP, CBC, HS TROP #### [address] MCV (RBC) [Entitic vol] 89.5 fL Normal 83.5-101 [facility] Comment on above: Performed By: #### M G, BMP, CBC, HS TROP #### [address] Mean Corpuscular HGB Conc 34.0 g/dL Normal 32.5-35.6 [facility] Comment on above: Performed By: #### M G, BMP, CBC, HS TROP #### [facility] [address] [place] [address] [place] Monocytes (Bld) [#/Vol] 1.4 10*3/uL High 0.0-0.8 [facility] Comment on above: Performed By: #### M G, BMP, CBC, HS TROP #### [facility] [address] [place] [address] [place] Monocytes/100 WBC (Bld) 8.5 % Normal . [facility] Comment on above: Performed By: #### M G, BMP, CBC, HS TROP #### [facility] [address] [place] [address] Neutrophils (Bld) [#/Vol] 13.2 10*3/uL High 1.8-7.7 [facility] Comment on above: Performed By: #### M G, BMP, CBC, HS TROP #### [facility] [address] [place] [address] [place] Neutrophils/100 WBC (Bld) 80.8 % Normal . [facility] Comment on above: Performed By: #### M G, BMP, CBC, HS TROP #### [facility] [address] [place] [address] [place] NRBC% 0.1 /100{WBC} Normal 0-0.5 [facility] Comment on above: Performed By: #### M G, BMP, CBC, HS TROP #### [facility] [address] [place] [address] [place] Platelet mean volume (Bld) [Entitic vol] 8.5 fL Normal 6.6-10.1 [facility] Comment on above: Performed By: #### M G, BMP, CBC, HS TROP #### [facility] [address] [place] [address] [place] Platelets (Bld) [#/Vol] 265 10*3/uL Normal 150-450 [facility] Comment on above: Performed By: #### M G, BMP, CBC, HS TROP #### [facility] [address] [place] [address] [place] RBC (Bld) [#/Vol] 4.56 10*6/uL Normal 3.90-5.60 [facility] Comment on above: Performed By: #### M G, BMP, CBC, HS TROP #### [facility] [address] WBC (Bld) [#/Vol] 16.3 10*3/uL High 4.1-10.5 [facility] Comment on above: Performed By: #### M G, BMP, CBC, HS TROP #### [facility] [address] Creatinine [Mass/volume] in Serum or PlasmaOrdered By: Mirna Aldridge on 12-25-2024 Creatinine [Mass/Vol] Creatinine [Mass/v olume] in Serum or Plasma 0.70-1.30 [facility] Eosinophils Auto (Bld) [#/Vo l]Ordered By: Mirna Aldridge on 12-25-2024 Eosinophils (Bld) [#/Vol] Automated eosinophil count 0.0-0.45 [facility] Eosinophils/100 WBC Auto (Bl d)Ordered By: Mirna Aldridge on 12-25-2024 Eosinophils/100 WBC (Bld) Automated eosinophil % . [facility] Erythrocyte distribution wid th Auto (RBC) [Ratio]Ordered By: Mirna Aldridge on 12-25-2024 Erythrocyte distribution width (RBC) [Ratio] Erythrocyte distribution width [Ratio] by Automated count 12.0-14.8 [facility] Glucose [Mass/volume] in Ser um or PlasmaOrdered By: Mirna Aldridge on 12-25-2024 Glucose [Mass/Vol] Glucose [Mass/volume ] in Serum or Plasma High 70-100 [facility] Comment on above: ADA recommended refe rence rangeRandom Glucose Reference Range is dependent on time and content of last meal. Glucose of more than 200 mg/dL in a nonstressed, ambulatory subject supports the diagnosis of Diabetes Mellitus. Hematocrit Auto (Bld) [Volum e fraction]Ordered By: Mirna Aldridge on 12-25-2024 Hematocrit (Bld) [Volume fraction] Hematocrit [Volume Fraction] of Blood by Automated count 38.8-50.0 [facility] Hemoglobin [Mass/volume] in BloodOrdered By: Mirna Aldridge on 12-25-2024 Hemoglobin (Bld) [Mass/Vol] Hemoglobin [Mass/volume] in Blood 13.0-17.0 [facility] INR in Platelet poor plasma by Coagulation assayOrdered By: Mirna Aldridge on 12-25-2024 INR Coag (PPP) [Relative time] INR in Platelet poor plasma by Coagulation assay [facility] Comment on above: INR Therapeutic Rang e [...] in Blood by Automated coun High 4.1-10.5 [facility] Lymphocytes Auto (Bld) [#/Vo l]Ordered By: Mirna Aldridge on 12-25-2024 Lymphocytes (Bld) [#/Vol] Lymphocytes [#/volume] in Blood by Automated count 1.00-4.8 [facility] Lymphocytes/100 WBC Auto (Bl d)Ordered By: Mirna Aldridge on 12-25-2024 Lymphocytes/100 WBC (Bld) Lymphocytes/100 leukocytes in Blood by Automated count . [facility] MCH Auto (RBC) [Entitic mass ]Ordered By: Mirna Aldridge on 12-25-2024 MCH (RBC) [Entitic mass] MCH [Entitic mass] by Automated count 27.5-35.2 [facility] MCHC Auto (RBC) [Mass/Vol]Or dered By: Mirna Aldridge on 12-25-2024 MCHC (RBC) [Mass/Vol] MCHC [Mass/volume] by Automated count 32.5-35.6 [facility] MCV Auto (RBC) [Entitic vol] Ordered By: Mirna Aldridge on 12-25-2024 MCV (RBC) [Entitic vol] MCV [Entitic volume] by Automated count 83.5-101 [facility] Magnesiumon 12-25-2024 Magnesium [Mass/Vol] 2.0 mg/dL Normal 1.9-2.7 [facility] Comment on above: Result Comment: PERF ORMED BY: [facility] [address] [facility] [place] [address] PATHOLOGIST LEGAL ADVISOR TAMICA SÁNCHEZ M.D. Performed By: #### M G, BMP, CBC, HS TROP #### [facility] [address] Magnesium [Mass/volume] in S zina or PlasmaOrdered By: Mirna Aldridge on 12-25-2024 Magnesium [Mass/Vol] Magnesium [Mass/vol ume] in Serum or Plasma 1.9-2.7 [facility] Monocytes Auto (Bld) [#/Vol] Ordered By: Mirna Aldridge on 12-25-2024 Monocytes (Bld) [#/Vol] Automated blood monocyte count High 0.0-0.8 [facility] Monocytes/100 WBC Auto (Bld) Ordered By: Mirna Aldridge on 12-25-2024 Monocytes/100 WBC (Bld) Automated monocyte % . [facility] Neutrophils Auto (Bld) [#/Vo l]Ordered By: Mirna Aldridge on 12-25-2024 Neutrophils (Bld) [#/Vol] Neutrophils [#/volume] in Blood by Automated count High 1.8-7.7 [facility] Neutrophils/100 WBC Auto (Bl d)Ordered By: Mirna Aldridge on 12-25-2024 Neutrophils/100 WBC (Bld) Automated neutrophil % . [facility] No Panel InformationOrdered By: Mirna Aldridge on 12-25-2024 Estimated GFR (CKD-EPI) > 60.0 mL/Min [facility] Creatinine Clearance (Chem 101.57 [facility] Nucleated erythrocytes [Pres ence] in Blood by Automated countOrdered By: Mirna Aldridge on 12-25-2024 Nucleated RBC Auto Ql (Bld) Nucleated erythrocytes [Presence] in Blood by Automated count 0-0.5 [facility] Platelet mean volume Auto (B ld) [Entitic vol]Ordered By: Mirna Aldridge on 12-25-2024 Platelet mean volume (Bld) [Entitic vol] Platelet mean volume [Entitic volume] in Blood by Automated count 6.6-10.1 [facility] Platelets Auto (Bld) [#/Vol] Ordered By: Mirna Aldridge on 12-25-2024 Platelets (Bld) [#/Vol] Platelets [#/volume] in Blood by Automated count 150-450 [facility] Potassium [Moles/volume] in Serum or PlasmaOrdered By: Mirna Aldridge on 12-25-2024 Potassium [Moles/Vol] Potassium [Moles/v olume] in Serum or Plasma 3.5-5.1 [facility] Comment on above: Hemolysis is present at a level that could interfere with the result.Contact lab if redraw is required Prothrombin Time INRon 12-25 INR Coag (PPP) [Relative time] 1.1 {INR} Normal [facility] Comment on above: Result [...] heart valves: 3 - 4.5 PERFORMED BY: [address] [address] PATHOLOGIST LEGAL ADVISOR TAMICA SÁNCHEZ M.D. Performed By: #### M G, BMP, CBC, HS TROP #### [facility] [address] [place] [address] [facility] PT Coag (PPP) [Time] 13.0 s High 9.0-12.9 [facility] Comment on above: Result Comment: A he matocrit value greater than 55% may lead to inaccurate results in coagulation testing. Patients having hematocrit values >55% require a special collection tube for coagulation studies. Please contact the laboratory at [phone] for redraw instructions. Performed By: #### M G, BMP, CBC, HS TROP #### [facility] [address] [place] [address] [facility] Prothrombin time (PT)Ordered By: Mirna Aldridge on 12-25-2024 PT Coag (PPP) [Time] Prothrombin time (PT) High 9.0- 12.9 [facility] Comment on above: A hematocrit value g reater than 55% may lead to inaccurate results in coagulation testing. Patients having hematocrit values >55% require a special collection tube for coagulation studies. Please contact the laboratory at [phone] for redraw instructions. RBC Auto (Bld) [#/Vol]Ordere d By: Mirna Aldridge on 12-25-2024 RBC (Bld) [#/Vol] Erythrocytes [#/volu me] in Blood by Automated count 3.90-5.60 [facility] Serum or plasma anion gap de terminationOrdered By: Mirna Aldridge on 12-25-2024 Anion gap [Moles/Vol] Serum or plasma an ion gap determination 6.0-15.0 [facility] Sodium [Moles/volume] in Ser um or PlasmaOrdered By: Mirna Aldridge on 12-25-2024 Sodium [Moles/Vol] Sodium [Moles/volume ] in Serum or Plasma Low 136-145 [facility] Troponin I High Sensitivityo n 12-25-2024 Troponin I High Sensitivity 65 Off scale high 0-20 [facility] Comment on above: Result Comment: Crit ical Result : Called to and read back by: PEDRO SCHERER at: 12/25/2024 11:56:19 by:CONCEPCION The Troponin units of report have been changed to meet the Chest Pain Accreditation requirement, element EC5.M1l2. Troponin units are changed from pg/ml to ng/L. Also, the decimal is removed and results are in whole numbers. PERFORMED BY: [place] [address] PATHOLOGIST LEGAL ADVISOR TAMICA SÁNCHEZ M.D. Performed By: #### M G, BMP, CBC, HS TROP #### [address] Troponin I High Sensitivity 42 High 0-20 [facility] Comment on above: Result Comment: The Troponin units of report have been changed to meet the Chest Pain Accreditation requirement, element EC5.M1l2. Troponin units are changed from pg/ml to ng/L. Also, the decimal is removed and results are in whole numbers. PERFORMED BY: [facility] [address] [place] [address] PATHOLOGIST LEGAL ADVISOR TAMICA SÁNCHEZ M.D. Performed By: #### M G, BMP, CBC, HS TROP #### [facility] [address] Troponin I.cardiac [Mass/vol ume] in Serum or Plasma by Detection limit <= 0.01 ng/Ordered By: Mirna Aldridge on 12-25-2024 Troponin I.cardiac DL <= 0.01 ng/mL [Mass/Vol] Troponin I.cardiac [Mass/volume] in Serum or Plasma by Detection limit <= 0.01 ng/ Critically high 0-20 [facility] Comment on above: Critical Result : Ca [...] nitrogen [Mass/volume] in Serum or Plasma 04-26 [facility] WBC Auto (Bld) [#/Vol]Ordere d By: Mirna Aldridge on 12-25-2024 WBC (Bld) [#/Vol] Leukocytes [#/volume ] in Blood by Automated count High 4.1-10.5 [facility] Basophils Auto (Bld) [#/Vol] on 12-24-2024 Basophils (Bld) [#/Vol] Automated basophil count 0.0-0.1 [facility] Basophils/100 WBC Auto (Bld) on 12-24-2024 Basophils/100 WBC (Bld) Automated basophil % 0.2-2.0 [facility] Eosinophils/100 WBC Auto (Bl d)on 12-24-2024 Eosinophils/100 WBC (Bld) Automated eosinophil % 0.9-7.0 [facility] Erythrocyte distribution wid th Auto (RBC) [Ratio]on 12-24-2024 Erythrocyte distribution width (RBC) [Ratio] Erythrocyte distribution width [Ratio] by Automated count 11.0-15.0 [facility] Estimated glomerular filtrat ion rate (GFR) non- Americanon 12-24-2024 GFR/1.73 sq M.predicted among non-blacks MDRD (S/P/Bld) [Vol rate/Area] Estimated glomerular filtration rate (GFR) non- >=60 mL/min/1.7 3m 2 [facility] Hematocrit Auto (Bld) [Volum e fraction]on 12-24-2024 Hematocrit (Bld) [Volume fraction] Hematocrit [Volume Fraction] of Blood by Automated count Low 42.0-54.0 [facility] Hemoglobin [Mass/volume] in Bloodon 12-24-2024 Hemoglobin (Bld) [Mass/Vol] Hemoglobin [Mass/volume] in Blood Low 14.0-18.0 [facility] INR in Platelet poor plasma by Coagulation assayon 12-24-2024 INR Coag (PPP) [Relative time] INR in Platelet poor plasma by Coagulation assay [facility] Comment on above: DESIRED INR:2.0-3.0 CONDITIONS NOT LISTED BELOW2.5-3.5 FOR PROSTHETIC HEART VALVE REPLACEMENT2.5-3.5 RECURRENT THROMBOSIS Laboratory - Chemistry and C hemistry - challengeon 12-24-2024 Calcium [Mass/Vol] 9.3 mg/dL 8.5-10.1 [facility] Chloride [Moles/Vol] 101 mmol/L 98-107 [facility] CO2 [Moles/Vol] 27.4 mmol/L 21.0-32.0 [facility] Creatinine [Mass/Vol] 0.91 mg/dL 0.70-1.30 [facility] GFR/1.73 sq M.predicted MDRD (S/P/Bld) [Vol rate/Area] mL/min/{1.73_m2} >=60 mL/min/1.7 3m 2 [facility] Glucose [Mass/Vol] 138 mg/dL High 74-106 [facility] Potassium [Moles/Vol] 3.9 mmol/L 3.5-5.1 [facility] Sodium [Moles/Vol] 137 mmol/L 136-145 [facility] Urea nitrogen [Mass/Vol] 13.0 mg/dL 7.0-18.0 [facility] Urea nitrogen/Creatinine [Mass ratio] 14.3 mg/mg [facility] Laboratory - Hematology and Cell countson 12-24-2024 Immature granulocytes/100 WBC (Bld) 0.2 % 0.0-0.5 [facility] Leukocytes [#/volume] correc rehan for nucleated erythrocytes in Blood by Automated counon 12-24-2024 WBC corrected for nucl RBC Auto (Bld) [#/Vol] Leukocytes [#/volume] corrected for nucleated erythrocytes in Blood by Automated coun High 4.0-11.0 [facility] Lymphocytes Auto (Bld) [#/Vo l]on 12-24-2024 Lymphocytes (Bld) [#/Vol] Lymphocytes [#/volume] in Blood by Automated count 1.2-3.8 [facility] Lymphocytes/100 WBC Auto (Bl d)on 12-24-2024 Lymphocytes/100 WBC (Bld) Lymphocytes/100 leukocytes in Blood by Automated count 20.5-60.0 [facility] MCH Auto (RBC) [Entitic mass ]on 12-24-2024 MCH (RBC) [Entitic mass] MCH [Entitic mass] by Automated count 25.9-34.0 [facility] MCHC Auto (RBC) [Mass/Vol]on 12-24-2024 MCHC (RBC) [Mass/Vol] MCHC [Mass/volume] by Automated count 29.9-35.2 [facility] MCV Auto (RBC) [Entitic vol] on 12-24-2024 MCV (RBC) [Entitic vol] MCV [Entitic volume] by Automated count 80.0-94.0 [facility] Monocytes Auto (Bld) [#/Vol] on 12-24-2024 Monocytes (Bld) [#/Vol] Automated blood monocyte count High 0.3-0.8 [facility] Monocytes/100 WBC Auto (Bld) on 12-24-2024 Monocytes/100 WBC (Bld) Automated monocyte % 1.7-12.0 [facility] Neutrophils Auto (Bld) [#/Vo l]on 12-24-2024 Neutrophils (Bld) [#/Vol] Neutrophils [#/volume] in Blood by Automated count High 1.4-6.5 [facility] Neutrophils/100 WBC Auto (Bl d)on 12-24-2024 Neutrophils/100 WBC (Bld) Automated neutrophil % 43.0-75.0 [facility] No Panel Informationon 12-24 Troponin I High Sensitivity 88.9 pg/mL Critically high 4.0-76.1 [facility] Comment on above: RESULTS CALLED TO DR [...] Eosinophils # (Auto) 0.3 10 3/uL 0.0-0.7 [facility] Immature Granulocyte # (Auto) 0.02 10 3/uL 0.00-0.03 [facility] Platelet mean volume Auto (B ld) [Entitic vol]on 12-24-2024 Platelet mean volume (Bld) [Entitic vol] Platelet mean volume [Entitic volume] in Blood by Automated count 9.5-13.5 [facility] Platelets Auto (Bld) [#/Vol] on 12-24-2024 Platelets (Bld) [#/Vol] Platelets [#/volume] in Blood by Automated count 150-450 [facility] Prothrombin time (PT)on 12-02 PT Coag (PPP) [Time] Prothrombin time (PT) 9.0- 11.6 [facility] RBC Auto (Bld) [#/Vol]on RBC (Bld) [#/Vol] Erythrocytes [#/volu me] in Blood by Automated count Low 4.70-6.10 [facility] Serum or plasma anion gap de terminationon 12-24-2024 Anion gap [Moles/Vol] Serum or plasma an ion gap determination [facility] ECG 12 Leadon 11-30-2024 Normal sinus rhythm at 66 bpm, first-degree AV block OH interval [address], [address]-T abnormality cannot exclude inferior myocardial infarction compared to the EKG from January 31, 2024, heart rate has increased from 58 bpm to 66 bpm otherwise there are no new findings . [facility] Work Phone: Basic Metabolic Panelon 09-03 Anion gap [Moles/Vol] Not performed Normal 6.0-15.0 [facility] Comment on above: Order Comment: ANDRE PALMER, CALLED PATIENT ON 09/21/24, LEFT MESSAGE-PSW NO NEW SPECIMEN OF 10/26/24-RMP Performed By: #### M G, BMP, CBC, HS TROP #### [facility] [address] [place] [id number] [place] Calcium [Mass/Vol] 9.5 mg/dL Normal 8.6-10.3 [facility] Comment on above: Order Comment: ANDRE PALMER, CALLED PATIENT ON 09/21/24, LEFT MESSAGE-PSW NO NEW SPECIMEN OF 10/26/24-RMP Result Comment: PERF ORMED BY: [place] [address] PATHOLOGIST LEGAL ADVISOR TAMICA SÁNCHEZ M.D. Performed By: #### M G, BMP, CBC, HS TROP #### [facility] [address] [place] [address] [place] Chloride [Moles/Vol] 97 mmol/L Low 98-107 [facility] Comment on above: Order Comment: ANDRE PALMER, CALLED PATIENT ON 09/21/24, LEFT MESSAGE-PSW NO NEW SPECIMEN OF 10/26/24-RMP Performed By: #### M G, BMP, CBC, HS TROP #### [facility] [address] [place] [address] [place] CO2 [Moles/Vol] 30.4 mmol/L Normal 21.0-31.0 [facility] Comment on above: Order Comment: HEMSTACIE PALMER, CALLED PATIENT ON 09/21/24, LEFT MESSAGE-PSW NO NEW SPECIMEN OF 10/26/24-RMP Performed By: #### M G, BMP, CBC, HS TROP #### [facility] [address] [id number] [facility] Creatinine [Mass/Vol] 0.78 mg/dL Normal 0.70-1.30 [facility] Comment on above: Order Comment: HEMSTACIE PALMER, CALLED PATIENT ON 09/21/24, LEFT MESSAGE-PSW NO NEW SPECIMEN OF 10/26/24-RMP Performed By: #### M G, BMP, CBC, HS TROP #### [facility] [address] [place] [address] [place] GFR/1.73 sq M.predicted MDRD (S/P/Bld) [Vol rate/Area] mL/min/{1.73_m2} Normal [facility] Comment on above: Order Comment: HEMSTACIE PALMER, CALLED PATIENT ON 09/21/24, LEFT MESSAGE-PSW NO NEW SPECIMEN OF 10/26/24-RMP Performed By: #### M G, BMP, CBC, HS TROP #### [facility] [address] [place] [id number] [facility] Glucose [Mass/Vol] 157 mg/dL High 70-100 [facility] Comment on above: Order Comment: ANDRE PALMER, CALLED PATIENT ON 09/21/24, LEFT MESSAGE-PSW NO NEW SPECIMEN OF 10/26/24-RMP Result Comment: [place] Glucose Reference Range is dependent on time and content of last meal. Glucose of more than 200 mg/dL in a nonstressed, ambulatory subject supports the diagnosis of Diabetes Mellitus. ADA recommended reference range Performed By: #### M G, BMP, CBC, HS TROP #### [facility] [address] [place] [id number] [facility] Potassium Normal 3.5-5.1 [facility] Comment on above: Order [...] M G, BMP, CBC, HS TROP #### [facility] [address] Sodium Normal 136-145 [facility] Comment on above: Order Comment: HEMOL YZED, CALLED PATIENT ON 09/21/24, LEFT MESSAGE-PSW NO NEW SPECIMEN OF 10/26/24-RMP Result Comment: Spec imen hemolyzed, redraw requested Performed By: #### M G, BMP, CBC, HS TROP #### [facility] [address] Urea nitrogen [Mass/Vol] 13 mg/dL Normal 7-25 [facility] Comment on above: Order Comment: HEMOL YZED, CALLED PATIENT ON 09/21/24, LEFT MESSAGE-PSW NO NEW SPECIMEN OF 10/26/24-RMP Performed By: #### M G, BMP, CBC, HS TROP #### [facility] [address] Activated partial thrombopla stin time (aPTT) in platelet poor plasma by coagulation aOrdered By: Praveen Song on 06-22-2024 aPTT Coag (PPP) [Time] 31.3 s 25.1-36.5 [facility] Comment on above: A hematocrit value g reater than 55% may lead to inaccurate results in coagulation testing. Patients having hematocrit values >55% require a special collection tube for coagulation studies. Please contact the laboratory at [phone] for redraw instructions. Automated basophil %Ordered By: Praveen Song on 06-22-2024 Basophils/100 WBC (Bld) 0.6 % Normal . [facility] Comment on above: Performed By: #### M G, BMP, CBC, HS TROP #### [facility] [address] [place], [place] [id number] [facility] Automated basophil countOrde red By: Praveen Song on 06-22-2024 Basophils (Bld) [#/Vol] 0.1 10*3/uL Normal 0.0-0.2 [facility] Comment on above: Result Comment: PERF ORMED BY: [place] [address] PATHOLOGIST LEGAL ADVISOR ION THOMPSON M.D. Performed By: #### M G, BMP, CBC, HS TROP #### [address] Automated blood monocyte cou ntOrdered By: Praveen Song on 06-22-2024 Monocytes (Bld) [#/Vol] 1.3 10*3/uL High 0.0-0.8 [facility] Comment on above: Performed By: #### M G, BMP, CBC, HS TROP #### [address] Automated eosinophil %Ordere d By: Praveen Song on 06-22-2024 Eosinophils/100 WBC (Bld) 2.4 % Normal . [facility] Comment on above: Performed By: #### M G, BMP, CBC, HS TROP #### [address] Automated eosinophil countOr dered By: Praveen Song on 06-22-2024 Eosinophils (Bld) [#/Vol] 0.3 10*3/uL Normal 0.0-0.45 [facility] Comment on above: Performed By: #### M G, BMP, CBC, HS TROP #### [address] Automated monocyte %Ordered By: Praveen Song on 06-22-2024 Monocytes/100 WBC (Bld) 9.8 % Normal . [facility] Comment on above: Performed By: #### M G, BMP, CBC, HS TROP #### [address] Automated neutrophil %Ordere d By: Praveen Song on 06-22-2024 Neutrophils/100 WBC (Bld) 68.2 % Normal . [facility] Comment on above: Performed By: #### M G, BMP, CBC, HS TROP #### [facility] [address] [place] [address] Complete Blood Count Auto Di ffon 06-22-2024 Mean Corpuscular HGB Conc 34.3 g/dL Normal 32.5-35.6 [facility] Comment on above: Performed By: #### M G, BMP, CBC, HS TROP #### [address] NRBC% 0.0 /100{WBC} Normal 0-0.5 [facility] Comment on above: Performed By: #### M G, BMP, CBC, HS TROP #### [address] Erythrocyte distribution wid th [Ratio] by Automated countOrdered By: Praveen Song on 06-22-2024 Erythrocyte distribution width (RBC) [Ratio] 12.7 % Normal 12.0-14.8 [facility] Comment on above: Performed By: #### M G, BMP, CBC, HS TROP #### [address] Erythrocytes [#/volume] in B lood by Automated countOrdered By: Praveen Song on 06-22-2024 RBC (Bld) [#/Vol] 4.52 10*6/uL Normal 3.90-5.60 [facility] Comment on above: Performed By: #### M G, BMP, CBC, HS TROP #### [address] Hematocrit [Volume Fraction] of Blood by Automated countOrdered By: Praveen Song on 06-22-2024 Hematocrit (Bld) [Volume fraction] 41.1 % Normal 38.8-50.0 [facility] Comment on above: Performed By: #### M G, BMP, CBC, HS TROP #### [address] Hemoglobin [Mass/volume] in BloodOrdered By: Praveen Song on 06-22-2024 Hemoglobin (Bld) [Mass/Vol] 14.1 g/dL Normal 13.0-17.0 [facility] Comment on above: Performed By: #### M Mya, EVAN, CBC, HS TROP #### [facility] [address] [place] [address] INR in Platelet poor plasma by Coagulation assayOrdered By: rPaveen Song on 06-22-2024 INR Coag (PPP) [Relative time] 1.2 {INR} Normal [facility] Comment on above: INR Therapeutic Rang e [...] M Mya, EVAN, CBC, HS TROP #### [facility] [address] [place], [place] [id number] [facility] Allan 06-22-2024 L Specimen: [id number] Received: 06/22/24 Status: JENIFER Rosado Num: [id number] Spec Type: Surgical Subm Dr: Praveen Song MD Tissues: A Small Intestine - Biopsy/Polyp (SMALL BOWEL R/O CELIAC) B GASTRIC FOR HP (GASTRIC R/O H PYLORI) C Colon Biopsy (DESCENDING POLYP) Procedures: HE/6, Gross/Micro L4/3, H PYLORI Age/ Patient Sex Location Account Attending Physician Vick Mercado 69/M [id number] Praveen Song MD SPEC NUM: [id number] RECD: 06/22/24 STATUS: JENIFER ROSADO NUM: [id number] MISSAEL: 06/22/24- SUBM DR: Praveen Song MD ENTERED: 06/22/24-0 [facility] DR: SPEC TYPE: Surgical DEPT: S [facility]: [id number] [facility] [id number] ORDERED: HE/6, Gross/Micro L4/3, H PYLORI ORDERED: [...] descending polyp and consists of 2 Specimen: [id number] Received: 06/22/24 Status: JENIFER Rosado Num: [id number] Spec Type: Surgical Subm Dr: Praveen Song MD Tissues: A Small Intestine - Biopsy/Polyp (SMALL BOWEL R/O CELIAC) B GASTRIC FOR HP (GASTRIC R/O H PYLORI) C Colon Biopsy (DESCENDING POLYP) Procedures: HE/6, Gross/Micro L4/3, H PYLORI Patient: Vick Mercado [id number] (Continued) Specimen: [id number] Received: 06/22/24 (Continued) Gross Description (Continued) Signed (signature on file) Alissa Hodges MD 06/27/24 1503 Specimen: [id number] Received: 06/22/24 Status: JENIFER Judgeabhi Num: [id number] Spec Type: Surgical Subm Dr: Praveen Song MD Tissues: A Small Intestine - Biopsy/Polyp (SMALL BOWEL R/O CELIAC) B GASTRIC FOR HP (GASTRIC R/O H PYLORI) C Colon Biopsy (DESCENDING POLYP) Procedures: HE/6, Gross/Micro L4/3, H PYLORI Patient: Vick Mercado [id number] (Continued) Specimen: [id number] Received: 06/22/24 (Continued) Gross Description (Continued) sanders portions of soft tissue measuring 0.2 and 0.3 cm in greatest dimension. The specimen is entirely submitted in cassette C1. CPT Codes 88 305 x [phone] x 1 Specimen: [id number] Received: 06/22/24 Status: JENIFER Rosado Num: [id number] Spec Type: Surgical Subm Dr: Praveen Song MD Tissues: A Small Intestine - Biopsy/Polyp (SMALL BOWEL R/O CELIAC) B GASTRIC FOR HP (GASTRIC R/O H PYLORI) C Colon Biopsy (DESCENDING POLYP) Procedures: HE/6, Gross/Micro L4/3, H PYLORI Patient: Vick Mercado [id number] (Continued) Signed (signature on file) Alissa Hodges MD 06/27/24 1503 Normal [facility] Leukocytes [#/volume] correc rehan for nucleated erythrocytes in Blood by Automated counOrdered By: Praveen Song on 06-22-2024 WBC corrected for nucl RBC Auto (Bld) [#/Vol] 12.9 10*3/uL High 4.1-10.5 [facility] Leukocytes [#/volume] in Blo od by Automated countOrdered By: Praveen Song on 06-22-2024 WBC (Bld) [#/Vol] 12.9 10*3/uL High 4.1-10.5 [facility] Comment on above: Performed By: #### M G, BMP, CBC, HS TROP #### [facility] [address] [place] [address] [place] Lymphocytes [#/volume] in Bl ood by Automated countOrdered By: Praveen Song on 06-22-2024 Lymphocytes (Bld) [#/Vol] 2.4 10*3/uL Normal 1.00-4.8 [facility] Comment on above: Performed By: #### M G, BMP, CBC, HS TROP #### [facility] [address] [place] [address] [place] Lymphocytes/100 leukocytes i n Blood by Automated countOrdered By: Praveen Song on 06-22-2024 Lymphocytes/100 WBC (Bld) 19.0 % Normal . [facility] Comment on above: Performed By: #### M G, BMP, CBC, HS TROP #### [facility] [address] MCH [Entitic mass] by Automa rehan countOrdered By: Praveen Song on 06-22-2024 MCH (RBC) [Entitic mass] 31.2 pg Normal 27.5-35.2 [facility] Comment on above: Performed By: #### M G, BMP, CBC, HS TROP #### [facility] [address] [place] [address] MCHC Auto (RBC) [Mass/Vol]Or dered By: Praveen Song on 06-22-2024 MCHC (RBC) [Mass/Vol] 34.3 g/dL 32.5-35.6 [facility] MCV [Entitic volume] by Auto mated countOrdered By: Praveen Song on 06-22-2024 MCV (RBC) [Entitic vol] 90.9 fL Normal 83.5-101 [facility] Comment on above: Performed By: #### M G, BMP, CBC, HS TROP #### [facility] [address] [place] [address] Neutrophils [#/volume] in Bl ood by Automated countOrdered By: Praveen Song on 06-22-2024 Neutrophils (Bld) [#/Vol] 8.8 10*3/uL High 1.8-7.7 [facility] Comment on above: Performed By: #### M G, BMP, CBC, HS TROP #### [facility] [address] [place] [address] Nucleated erythrocytes [Pres ence] in Blood by Automated countOrdered By: Praveen Song on 06-22-2024 Nucleated RBC Auto Ql (Bld) 0.0 /100{WBC} 0-0.5 [facility] Partial Thromboplastin Timeo n 06-22-2024 aPTT Coag (Bld) [Time] 31.3 s Normal 25.1-36.5 [facility] Comment on above: Result Comment: A he matocrit value greater than 55% may lead to inaccurate results in coagulation testing. Patients having hematocrit values >55% require a special collection tube for coagulation studies. Please contact the laboratory at [phone] for redraw instructions. PERFORMED BY: [place] [address] PATHOLOGIST LEGAL ADVISOR ION THOMPSON M.D. Performed By: #### M G, BMP, CBC, HS TROP #### [address] Platelet mean volume [Entiti c volume] in Blood by Automated countOrdered By: Praveen Song on 06-22-2024 Platelet mean volume (Bld) [Entitic vol] 7.6 fL Normal 6.6-10.1 [facility] Comment on above: Performed By: #### M G, BMP, CBC, HS TROP #### [address] Platelets [#/volume] in Bloo d by Automated countOrdered By: rPaveen Song on 06-22-2024 Platelets (Bld) [#/Vol] 290 10*3/uL Normal 150-450 [facility] Comment on above: Performed By: #### M G, BMP, CBC, HS TROP #### [address] Prothrombin time (PT)Ordered By: Praveen Song on 06-22-2024 PT Coag (PPP) [Time] 13.7 s High 9.0-12.9 [facility] Comment on above: A hematocrit value g reater than 55% may lead to inaccurate results in coagulation testing. Patients having hematocrit values >55% require a special collection tube for coagulation studies. Please contact the laboratory at [phone] for redraw instructions. Result Comment: A he matocrit value greater than 55% may lead to inaccurate results in coagulation testing. Patients having hematocrit values >55% require a special collection tube for coagulation studies. Please contact the laboratory at [phone] for redraw instructions. Performed By: #### M G, BMP, CBC, HS TROP #### [place] [address] [facility] Basophils Auto (Bld) [#/Vol] on 05-10-2024 Basophils (Bld) [#/Vol] 0.1 10 3/uL 0.0-0.1 [facility] Basophils/100 WBC Auto (Bld) on 05-10-2024 Basophils/100 WBC (Bld) 0.8 % 0.2-2.0 [facility] Cholesterol in VLDL Calc [Ma ss/Vol]on 05-10-2024 Cholesterol in VLDL [Mass/Vol] 87.8 mg/dL [facility] Eosinophils/100 WBC Auto (Bl d)on 05-10-2024 Eosinophils/100 WBC (Bld) 3.3 % 0.9-7.0 [facility] Erythrocyte distribution wid th Auto (RBC) [Ratio]on 05-10-2024 Erythrocyte distribution width (RBC) [Ratio] 12.1 % 11.0-15.0 [facility] Estimated glomerular filtrat ion rate (GFR) non- Americanon 05-10-2024 GFR/1.73 sq M.predicted among non-blacks MDRD (S/P/Bld) [Vol rate/Area] mL/min/{1.73_m2} >=60 [facility] Globulin Calc (S) [Mass/Vol] on 05-10-2024 Globulin (S) [Mass/Vol] 3.6 g/dL [facility] Hematocrit Auto (Bld) [Volum e fraction]on 05-10-2024 Hematocrit (Bld) [Volume fraction] 39.7 % Low 42.0-54.0 [facility] Hemoglobin [Mass/volume] in Bloodon 05-10-2024 Hemoglobin (Bld) [Mass/Vol] 13.4 g/dL Low 14.0-18.0 [facility] Laboratory - Chemistry and C hemistry - challengeon 05-10-2024 Albumin [Mass/Vol] 3.8 g/dL 3.4-5.0 [facility] ALP [Catalytic activity/Vol] 53 U/L 46-116 [facility] ALT [Catalytic activity/Vol] 44 U/L 16-63 [facility] AST [Catalytic activity/Vol] 28 U/L 15-37 [facility] Bilirubin [Mass/Vol] 0.4 mg/dL 0.2-1.0 [facility] Calcium [Mass/Vol] 8.9 mg/dL 8.5-10.1 [facility] Chloride [Moles/Vol] 99 mmol/L 98-107 [facility] Cholesterol [Mass/Vol] 306 mg/dL High <=200 [facility] Cholesterol in HDL [Mass/Vol] 40 mg/dL 40-60 [facility] Comment on above: > or =60 mg/dl - LOW CARDIOVASCULAR RISK<40 mg/dl - HIGH CARDIOVASCULAR RISK Cholesterol in LDL [Mass/Vol] 180 mg/dL [facility] Comment on above: <100 mg/dl [id number] 0-129 mg/dl NEAR OR ABOVE [id number] mg/dl BORDERLINE [id number] mg/dl HIGH>190 mg/dl VERY HIGH CO2 [Moles/Vol] 28.9 mmol/L 21.0-32.0 [facility] Creatinine [Mass/Vol] 0.86 mg/dL 0.70-1.30 [facility] GFR/1.73 sq M.predicted MDRD (S/P/Bld) [Vol rate/Area] mL/min/{1.73_m2} >=60 [facility] Glucose [Mass/Vol] 154 mg/dL High 74-106 [facility] Potassium [Moles/Vol] 4.3 mmol/L 3.5-5.1 [facility] Protein [Mass/Vol] 7.4 g/dL 6.4-8.2 [facility] Sodium [Moles/Vol] 136 mmol/L 136-145 [facility] Triglyceride [Mass/Vol] 439 mg/dL High <=150 [facility] Urea nitrogen [Mass/Vol] 14.0 mg/dL 7.0-18.0 [facility] Urea nitrogen/Creatinine [Mass ratio] 16.3 mg/mg [facility] Laboratory - Hematology and Cell countson 05-10-2024 Immature granulocytes/100 WBC (Bld) 0.7 % High 0.0-0.5 [facility] Leukocytes [#/volume] correc rehan for nucleated erythrocytes in Blood by Automated counon 05-10-2024 WBC corrected for nucl RBC Auto (Bld) [#/Vol] 9.8 10 3/uL 4.0-11.0 [facility] Lymphocytes Auto (Bld) [#/Vo l]on 05-10-2024 Lymphocytes (Bld) [#/Vol] 2.5 10 3/uL 1.2-3.8 [facility] Lymphocytes/100 WBC Auto (Bl d)on 05-10-2024 Lymphocytes/100 WBC (Bld) 25.5 % 20.5-60.0 [facility] MCH Auto (RBC) [Entitic mass ]on 05-10-2024 MCH (RBC) [Entitic mass] 31.6 pg 25.9-34.0 [facility] MCHC Auto (RBC) [Mass/Vol]on 05-10-2024 MCHC (RBC) [Mass/Vol] 33.8 g/dL 29.9-35.2 [facility] MCV Auto (RBC) [Entitic vol] on 05-10-2024 MCV (RBC) [Entitic vol] 93.6 fL 80.0-94.0 [facility] Monocytes Auto (Bld) [#/Vol] on 05-10-2024 Monocytes (Bld) [#/Vol] 0.9 10 3/uL High 0.3-0.8 [facility] Monocytes/100 WBC Auto (Bld) on 05-10-2024 Monocytes/100 WBC (Bld) 9.6 % 1.7-12.0 [facility] Neutrophils Auto (Bld) [#/Vo l]on 05-10-2024 Neutrophils (Bld) [#/Vol] 5.9 10 3/uL 1.4-6.5 [facility] Neutrophils/100 WBC Auto (Bl d)on 05-10-2024 Neutrophils/100 WBC (Bld) 60.1 % 43.0-75.0 [facility] No Panel Informationon 05-10 Eosinophils # (Auto) 0.3 10 3/uL 0.0-0.7 [facility] Immature Granulocyte # (Auto) 0.07 10 3/uL High 0.00-0.03 [facility] Prostate Specific Antigen Screen 2.47 ng/mL <=4.00 [facility] Platelet mean volume Auto (B ld) [Entitic vol]on 05-10-2024 Platelet mean volume (Bld) [Entitic vol] 9.5 fL 9.5-13.5 [facility] Platelets Auto (Bld) [#/Vol] on 05-10-2024 Platelets (Bld) [#/Vol] 206 10 3/uL 150-450 [facility] RBC Auto (Bld) [#/Vol]on RBC (Bld) [#/Vol] 4.24 10 6/uL Low 4.70-6.10 [facility] Serum or plasma albumin/glob ulin mass ratioon 05-10-2024 Albumin/Globulin [Mass ratio] 1.1 {ratio} [facility] Serum or plasma anion gap de terminationon 05-10-2024 Anion gap [Moles/Vol] 12.4 mmol/[facility] Serum or plasma total choles terol/high density lipoprotein (HDL) cholesterol mass meliton 05-10-2024 Cholesterol.total/Chol esterol in HDL [Mass ratio] 7.7 {ratio} [facility] Comment on above: 3.3 - 4.4 LOW RISK4. 4 - 7.1 AVERAGE RISK7.1 - 11.0 MODERATE RISK>11.0 HIGH RISK Estimated glomerular filtrat ion rate (GFR) non- Americanon 03-23-2024 GFR/1.73 sq M.predicted among non-blacks MDRD (S/P/Bld) [Vol rate/Area] mL/min/{1.73_m2} >=60 [facility] Laboratory - Chemistry and C hemistry - challengeon 03-23-2024 Calcium [Mass/Vol] 8.9 mg/dL 8.5-10.1 [facility] Chloride [Moles/Vol] 102 mmol/L 98-107 [facility] CO2 [Moles/Vol] 27.6 mmol/L 21.0-32.0 [facility] [place] Creatinine [Mass/Vol] 0.96 mg/dL 0.70-1.30 [facility] GFR/1.73 sq M.predicted MDRD (S/P/Bld) [Vol rate/Area] mL/min/{1.73_m2} >=60 [facility] Glucose [Mass/Vol] 143 mg/dL High 74-106 [facility] Potassium [Moles/Vol] 4.4 mmol/L 3.5-5.1 [facility] Sodium [Moles/Vol] 136 mmol/L 136-145 [facility] Urea nitrogen [Mass/Vol] 22.0 mg/dL High 7.0-18.0 [facility] Urea nitrogen/Creatinine [Mass ratio] 22.9 mg/mg [facility] Serum or plasma anion gap de terminationon 03-23-2024 Anion gap [Moles/Vol] 10.8 mmol/L [facility] TRANSTHORACIC ECHO (TTE) COM PLETE 02-11-2024 TRANSTHORACIC ECHO (TTE) COMPLETE [address], [address] [place] [address] TRANSTHORACIC ECHOCARDIOGRAM REPORT Patient Name: VICK MERCADO Reading Physician: [id number] Ruby Prince MD Study Date: 02/11/2024 Ordering Provider: [id number] MARY NEAL MRN/PID: [id number] Fellow: Nurse: Date of /Age: 6 1955 / 68 years Operating Room Surgical Technician: Francie Martin RDCS, RD, RVT Gender: M Additional Staff: Height: 177.80 cm Admit Date: Weight: 99.79 kg Admission Status: Outpatient BSA / BMI: 2.17 m2 / 31.57 Department Location: [facility] kgm2 [place] Blood Pressure: 132 /64 mmHg Study Type: TRANSTHORACIC ECHO (TTE) COMPLETE Diagnosis/ICD: Paroxysmal atrial fibrillation-I48.0; 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 (congestive) 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 (CHF)-I50.22; Other cardiomyopathies-I42.8 Indication: Afib, NICM, CHF, HTN, JANETTE CPT Codes: Echo Complete w Full Doppler-[id number] Study Detail: The following Echo studies were [...] 0.7 m/s (0.6-0.9m/s) PV Max P.9 mmHg [id number] Ruby Prince MD Electronically signed on 02/13/2024 at 1:00:52 PM Final Normal [facility] ECG 12 Leadon 01-31-2024 [facility] Work Phone: Basophils Auto (Bld) [#/Vol] Ordered By: Jairo Wild on 09-01-2023 Basophils (Bld) [#/Vol] 0.1 10*3/uL 0.0-0.2 [facility] Basophils/100 WBC Auto (Bld) Ordered By: Jairo Wild on 09-01-2023 Basophils/100 WBC (Bld) 0.6 % . [facility] Calcium [Mass/volume] in Ser um or PlasmaOrdered By: Jairo Wild on 09-01-2023 Calcium [Mass/Vol] 9.5 mg/dL 8.6-10.3 [facility] Carbon dioxide, total [Moles /volume] in Serum or PlasmaOrdered By: Jairo Wild on 09-01-2023 CO2 [Moles/Vol] 25.9 mmol/L 21.0-31.0 [facility] [place] Chloride [Moles/volume] in S zina or PlasmaOrdered By: Jairo Wild on 09-01-2023 Chloride [Moles/Vol] 103 mmol/L 98-107 [facility] Creatinine [Mass/volume] in Serum or PlasmaOrdered By: Jairo Wild on 09-01-2023 Creatinine [Mass/Vol] 0.78 mg/dL 0.70-1.30 [facility] Eosinophils Auto (Bld) [#/Vo l]Ordered By: Jairo Wild on 09-01-2023 Eosinophils (Bld) [#/Vol] 0.4 10*3/uL 0.0-0.45 [facility] Eosinophils/100 WBC Auto (Bl d)Ordered By: Jairo Wild on 09-01-2023 Eosinophils/100 WBC (Bld) 4.0 % . [facility] Erythrocyte distribution wid th Auto (RBC) [Ratio]Ordered By: Jairo Wild on 09-01-2023 Erythrocyte distribution width (RBC) [Ratio] 12.5 % 12.0-14.8 [facility] Glucose [Mass/volume] in Ser um or PlasmaOrdered By: Jairo Wild on 09-01-2023 Glucose [Mass/Vol] 133 mg/dL 70-100 [facility] Comment on above: ADA recommended refe rence rangeRandom Glucose Reference Range is dependent on time and content of last meal. Glucose of more than 200 mg/dL in a nonstressed, ambulatory subject supports the diagnosis of Diabetes Mellitus. Hematocrit Auto (Bld) [Volum e fraction]Ordered By: Jairo Wild on 09-01-2023 Hematocrit (Bld) [Volume fraction] 43.5 % 38.8-50.0 [facility] Hemoglobin [Mass/volume] in BloodOrdered By: Jairo Wild on 09-01-2023 Hemoglobin (Bld) [Mass/Vol] 14.9 g/dL 13.0-17.0 [facility] Leukocytes [#/volume] correc rehan for nucleated erythrocytes in Blood by Automated counOrdered By: Jairo Wild on 09-01-2023 WBC corrected for nucl RBC Auto (Bld) [#/Vol] 10.4 10*3/uL 4.1-10.5 [facility] Lymphocytes Auto (Bld) [#/Vo l]Ordered By: Jairo Wild on 09-01-2023 Lymphocytes (Bld) [#/Vol] 2.5 10*3/uL 1.00-4.8 [facility] Lymphocytes/100 WBC Auto (Bl d)Ordered By: Jairo Wild on 09-01-2023 Lymphocytes/100 WBC (Bld) 24.6 % . [facility] MCH Auto (RBC) [Entitic mass ]Ordered By: Jairo Wild on 09-01-2023 MCH (RBC) [Entitic mass] 31.5 pg 27.5-35.2 [facility] MCHC Auto (RBC) [Mass/Vol]Or dered By: Jairo Wild on 09-01-2023 MCHC (RBC) [Mass/Vol] 34.2 g/dL 32.5-35.6 [facility] MCV Auto (RBC) [Entitic vol] Ordered By: Jairo Wild on 09-01-2023 MCV (RBC) [Entitic vol] 92.2 fL 83.5-101 [facility] Monocytes Auto (Bld) [#/Vol] Ordered By: Jairo Wild on 09-01-2023 Monocytes (Bld) [#/Vol] 1.0 10*3/uL 0.0-0.8 [facility] Monocytes/100 WBC Auto (Bld) Ordered By: Jairo Wild on 09-01-2023 Monocytes/100 WBC (Bld) 9.7 % . [facility] Neutrophils Auto (Bld) [#/Vo l]Ordered By: Jairo Wild on 09-01-2023 Neutrophils (Bld) [#/Vol] 6.3 10*3/uL 1.8-7.7 [facility] Neutrophils/100 WBC Auto (Bl d)Ordered By: Jairo Wild on 09-01-2023 Neutrophils/100 WBC (Bld) 61.1 % . [facility] No Panel InformationOrdered By: Jairo Wild on 09-01-2023 Estimated GFR (CKD-EPI) > 60.0 mL/Min [facility] Creatinine Clearance (Chem N/A [facility] Nucleated erythrocytes [Pres ence] in Blood by Automated countOrdered By: Jairo Wild on 09-01-2023 Nucleated RBC Auto Ql (Bld) 0.1 /100{WBC} 0-0.5 [facility] Platelet mean volume Auto (B ld) [Entitic vol]Ordered By: Jairo Wild on 09-01-2023 Platelet mean volume (Bld) [Entitic vol] 8.0 fL 6.6-10.1 [facility] Platelets Auto (Bld) [#/Vol] Ordered By: Jairo Wild on 09-01-2023 Platelets (Bld) [#/Vol] 235 10*3/uL 150-450 [facility] Potassium [Moles/volume] in Serum or PlasmaOrdered By: Jairo Wild on 09-01-2023 Potassium [Moles/Vol] 4.1 mmol/L 3.5-5.1 [facility] RBC Auto (Bld) [#/Vol]Ordere d By: Jairo Wild on 09-01-2023 RBC (Bld) [#/Vol] 4.72 10*6/uL 3.90-5.60 [facility] Serum or plasma anion gap de terminationOrdered By: Jairo Wild on 09-01-2023 Anion gap [Moles/Vol] 12.2 mmol/L 6.0-15.0 [facility] Sodium [Moles/volume] in Ser um or PlasmaOrdered By: Jairo Wild on 09-01-2023 Sodium [Moles/Vol] 137 mmol/L 136-145 [facility] Urea nitrogen [Mass/volume] in Serum or PlasmaOrdered By: Jairo Wild on 09-01-2023 Urea nitrogen [Mass/Vol] 22 mg/dL 7-25 [facility] WBC Auto (Bld) [#/Vol]Ordere d By: Jairo Wild on 09-01-2023 WBC (Bld) [#/Vol] 10.4 10*3/uL 4.1-10.5 [facility] NM HEART BLOOD POOL EJECTION FRACTION WALL MOTION (MUGA)on 08-24-2023 NM HEART BLOOD POOL EJECTION FRACTION WALL MOTION (MUGA) Interpreted By: Ruby Prince and Giannuzzi Michael STUDY: MUGA Performing facility: [facility], [address] [place] [address], [address] Provider: Karlo Aldridge RN, DINKEY LOCOMOTIVE ENGINEER PCP: Dr. Gabino Joseph Supervising provider: Ruby rPince MD INDICATION: NICM HISTORY: Gender: M; Age: 68 y/o ; Height: HT 177.8 cm cm; Weight: WT 94.802 kg kg. CAD; HTN; CHF Quit smoking 15 years ago. Cardiac catheterization on 2022. COMPARISON: Previous nuclear testing completed [id number] Muga EF=33% at [facility]. Previous echo testing completed [id number] EF=40-45% at [facility]. ACCESSION NUMBER(S): [id number] ORDERING CLINICIAN: KARLO ALDRIDGE TECHNIQUE: The patient received an IV injection of 3 ml of stannous pyrophosphate (PYP) using the in-vivo method of labeling red blood cells. After 30 minutes the patient received another IV injection of 25.7 mCi of Technetium 99m pertechnetate. Planar images of the left ventricle were obtained in the BANGLADESHI 45, Lt Lateral and anterior projections. FINDINGS: [...] Ruby Prince 08/24/2023 5:04 PM Dictation workstation: [id number] [facility] Falls Screening (Age 18+)on 06-13-2023 Fall risk assessment a) [facility] the [facility] Work Phone: Falls Screening (Age [...] A DAY Basic Metabolic Panel; Status:Active; Requested for:[id number]; IO EKG Electrocardiogram- 12 Lead; Status:Complete; Done: [id number] IO MUGA (Nuclear Testing); Status:Hold For - Scheduling; Requested for:[id number]; Radiologist to Determine Optimal Study : Y What are the patient's signs and symptoms? : ISLAS, fatigue Overweight with body mass index (BMI) of 29 to 29.9 in adult Healthy Weight Tips; Status:Complete; Done: [id number] Patient Instructions PLAN: Through informed decision making [...] TABLET Sherin (more content not included)... [facility] MUGA SCAN INJECTION Patient Name: VICK MERCADO STUDY: MUGA Performing facility: [facility], [address] [place] [address], [address], [address] Provider: Balbir Lucio DO, [facility] PCP: Dr. Gabino Corbin Supervising provider: Ruby Prince MD INDICATION: CHF Non ischemic cardiomyopathy HISTORY: Gender: M; Age: 68 y/o ; Height: 0 cm; Weight: 0 kg. HTN; CHF Quit smoking 15 years ago. Cardiac catheterization on 2022. COMPARISON: No comparison. Previous echo testing completed [id number] EF=40-45% at [facility]. ACCESSION NUMBER(S): [id number]; [id number] ORDERING CLINICIAN: JORGE LUCIO TECHNIQUE: The patient received an IV injection of 3 ml of stannous pyrophosphate (PYP) using the in-vivo method of labeling red blood cells. After 15 minutes the patient received another IV injection of 26.5 mCi of Technetium 99m pertechnetate. Planar images of the left ventricle were obtained in the BANGLADESHI 45, Lt Lateral and anterior projections. FINDINGS: [...] Electronically signed by: KINGS BANEGAS MD Normal [facility] No Panel Informationon 05-05 Normal -[facility] erick 250 DO Work Phone: Office [...] For - Scheduling,Retrospective By Protocol Authorization; Requested for:[id number]; Radiologist to Determine Optimal Study : Y What are the patient's signs and symptoms? : chf, non-ischemic cardiomyopathy Basic Metabolic Panel; Status:Active - Retrospective Authorization; Requested for:[id number]; Renew: Carvedilol 6.25 MG Oral Tablet; TAKE 1 TABLET BY MOUTH TWICE DAILY WITH MEALS Renew: Spironolactone 25 MG Oral Tablet; TAKE 0.5 TABLET Daily CHF (NYHA class II, ACC/AHA stage C), Nonischemic cardiomyopathy, Shortness of breath Brain Natriuretic Peptide BNP; Status:Active - Retrospective Authorization; Requested for:[id number]; Overweight with body mass index (BMI) of 29 to 29.9 in adult Healthy Weight Tips; Status:Complete - Retrospective Authorization; Done: [id number] Some eating tips that can help you lose weight.; Status:Complete - Retrospective Authorization; Done: [id number] Patient Instructions Please bring all medicines, vitamins, [...] negative for complaint. Vitals Vital Signs Recorded: [id number] 11:53AM Heart Rate60, L Radial [id number], LUE, Sitting Uknnntgmj94, LUE, Sitting Height5 ft 10 in Znznnt977 lb BMI Wjrutehkwk70.99 kg/m2 BSA Calculated2.13 Tobacco Useb) No PHQ-2 [...] Exam Constituti (more content not included)... Normal [facility] Tobacco Screening.on 023 Adult depression screening assessment No [facility] 250 DO Work Phone: Fall risk assessment a) No falls within the last year [facility] 250 DO Work Phone: Tobacco use status CP b) No [facility] 250 DO Work Phone: Activated partial thrombopla stin time (aPTT) in platelet poor plasma by coagulation aOrdered By: Papo Lucio on 03-02-2023 aPTT Coag (PPP) [Time] 30.5 s 25.1-36.5 [facility] Cholesterol [Mass/volume] in Serum or PlasmaOrdered By: Papo Lucio on 03-02-2023 Cholesterol [Mass/Vol] 225 mg/dL 140-200 [facility] Comment on above: Chol less than 200 m g/dl low riskChol 201-239 mg/dl borderline riskChol 240 mg/dl and greater high risk Cholesterol in LDL Calc [Mas s/Vol]Ordered By: Papo Lucio on 03-02-2023 Cholesterol in LDL [Mass/Vol] 148 mg/dL 0-100 [facility] Comment on above: LDL ATP III CLASSIFI CATIONLDL less than 100 mg/dL OptimalLDL 100-129 mg/dL Near or above optimalLDL 130-159 mg/dL Borderline highLDL 160-189 mg/dL HighLDL greater than 189 mg/dL Very high Cholesterol in VLDL Calc [Ma ss/Vol]Ordered By: Papo Lucio on 03-02-2023 Cholesterol in VLDL [Mass/Vol] 34 mg/dL [facility] Laboratory - Chemistry and C hemistry - challengeon 03-02-2023 Cholesterol [Mass/Vol] 225\S\225 above hig h threshold 140-200 [facility] erick 250 DO Work Phone: Comment on above: Chol less than 200 m g/dl low risk Chol 201-239 mg/dl borderline risk Chol 240 mg/dl and greater high risk Cholesterol in LDL [Mass/Vol] 148\S\148 above high threshold 0-100 [facility] 250 DO Work Phone: Comment on above: LDL ATP III CLASSIFI CATION LDL less than 100 mg/dL Optimal LDL 100-129 mg/dL Near or above optimal LDL 130-159 mg/dL Borderline high LDL 160-189 mg/dL High LDL greater than 189 mg/dL Very high Laboratory - CoagulationOrde red By: Papo Lucio on 03-02-2023 PT Coag (PPP) [Time] 12.0 s 9.0-12.9 [facility] No Panel Informationon 03-02 30.5\S\30.5 Normal 25.1-36.5 [facility] 250 DO Work Phone: Comment on above: PERFORMED BY:[place] [address] [place], [place] [phone] MEDICAL DIRECTORION THOMPSON M.D. 1.0\S\1.0 Normal [facility] 250 DO Work Phone: Comment on above: [...] valves: 3 - 4.5 12.0\S\12.0 Normal 9.0-12.9 [facility] 250 DO Work Phone: 5.2\S\5.2 Normal <5.0 [facility] erick 250 DO Work Phone: Comment on above: PERFORMED BY:[place] [address] [place], [place] [phone] MEDICAL DIRECTORION THOMPSON M.D. 34\S\34 Normal [facility] [employer] [place] 250 DO Work Phone: 171\S\171 above high threshold 0-149 [facility] [place] 250 DO Work Phone: Comment on above: TRIG ATP III CLASSIF ICATION TRIG less than 150 mg/dL Normal TRIG 150-199 mg/dL Borderline high TRIG 200-500 mg/dL High TRIG greater than 500 mg/dL Very high Standard traceable to the Center for Disease Conrtrol and Prevention (CDC) test method. 43\S\43 Normal 29-71 [facility] [employer] [place] 250 DO Work Phone: Comment on above: HDL CHOL ATP-III CLA SSIFICATION Cardiovascular Risk HDL > or equal to 60 mg/dL LOW HDL < 40 mg/dL HIGH Platelet poor plasma interna tional normalized ratio (INR) by coagulation assay (relatOrdered By: Papo Lucio on 03-02-2023 INR Coag (PPP) [Relative time] 1.0 {INR} [facility] Comment on above: INR Therapeutic Rang e [...] Cholesterol in HDL [Mass/Vol] 43 mg/dL 29-71 [facility] Comment on above: HDL CHOL ATP-III CLA SSIFICATION Cardiovascular RiskHDL > or equal to 60 mg/dL LOWHDL < 40 mg/dL HIGH Serum or plasma total choles terol/high density lipoprotein (HDL) cholesterol mass ratOrdered By: Papo Lucio on 03-02-2023 Cholesterol.total/Chol esterol in HDL [Mass ratio] 5.2 {ratio} <5.0 [facility] Triglyceride [Mass/volume] i n Serum or PlasmaOrdered By: Papo Lucio on 03-02-2023 Triglyceride [Mass/Vol] 171 mg/dL 0-149 [facility] Comment on above: TRIG ATP III CLASSIF ICATIONTRIG less than 150 mg/dL NormalTRIG 150-199 mg/dL Borderline highTRIG 200-500 mg/dL High TRIG greater than 500 mg/dL Very highStandard traceable to the Center for Disease Conrtrol and Prevention (CDC) test method. CBC AUTO DIFFon 03-01-2023 BASO # 0.1 103/ul Normal 0.0-0.1 [facility] Comment on above: Performed By: #### C BC #### [facility] [address] [address] [address] Will Bain Basophils/100 WBC (Bld) 0.6 % Normal 0.2-2.0 [facility] Comment on above: Performed By: #### C BC #### [facility] [address] [address] [address] Will Bain EO # 0.3 103/ul Normal 0.0-0.7 [facility] Comment on above: Performed By: #### C BC #### [facility] [address] [address] [address] Will Bain Eosinophils/100 WBC (Bld) 3.5 % Normal 0.9-7.0 [facility] Comment on above: Performed By: #### C BC #### [facility] [address] [place] [address] Dr. Will Bain Erythrocyte distribution width (RBC) [Ratio] 12.9 % Normal 11.0-15.0 [facility] Comment on above: Performed By: #### C BC #### [facility] [address] [place] [address] Dr. Will Bain Hematocrit (Bld) [Volume fraction] 40.4 % Critically low 42.0-54.0 [facility] Comment on above: Performed By: #### C BC #### [facility] [address] [place] [address] Dr. Will Bain Hemoglobin (Bld) [Mass/Vol] 13.5 g/dL Critically low 14.0-18.0 [facility] Comment on above: Performed By: #### C BC #### [facility] [address] [place] [address] Dr. Will Bain IG # 0.02 10e3/ul Normal 0.00-0.03 [facility] Comment on above: Performed By: #### C BC #### [facility] [address] [place] [address] Dr. Will Bain IG % 0.2 % Normal 0.0-0.5 [facility] Comment on above: Performed By: #### C BC #### [facility] [address] [place] [address] Dr. Will Bain LYMPH # 2.3 103/ul Normal 1.2-3.8 [facility] Comment on above: Performed By: #### C BC #### [facility] [address] [place] [address] Dr. Will Bain Lymphocytes/100 WBC (Bld) 27.8 % Normal 20.5-60.0 [facility] Comment on above: Performed By: #### C BC #### [facility] [address] [place] [address] Dr. Will Bain MANUAL DIFF REQ NO Normal [facility] Comment on above: Performed By: #### C BC #### [facility] [address] [place] [address] Dr. Will Bain MCH (RBC) [Entitic mass] 29.9 pg Normal 25.9-34.0 [facility] Comment on above: Performed By: #### C BC #### [facility] [address] [place] [address] Dr. Will Bain MCHC (RBC) [Mass/Vol] 33.4 g/dL Normal 29.9-35.2 [facility] Comment on above: Performed By: #### C BC #### [facility] [address] [place] [address] Dr. Will Bain MCV (RBC) [Entitic vol] 89.6 fL Normal 80.0-94.0 [facility] Comment on above: Performed By: #### C BC #### [facility] [address] [place] [address] Dr. Will Bain MONO # 0.9 103/ul Critically high 0.3-0.8 [facility] Comment on above: Performed By: #### C BC #### [facility] [address] [place] [address] Dr. Will Bain Monocytes/100 WBC (Bld) 10.3 % Normal 1.7-12.0 [facility] Comment on above: Performed By: #### C BC #### [facility] [address] [place] [address] Dr. Will Bain NEUT # 4.7 103/ul Normal 1.4-6.5 [facility] Comment on above: Performed By: #### C BC #### [facility] [address] [place] [address] Dr. Will Bain Neutrophils/100 WBC (Bld) 57.6 % Normal 43.0-75.0 [facility] Comment on above: Performed By: #### C BC #### [facility] [address] [place] [address] Dr. Will Bain Platelet mean volume (Bld) [Entitic vol] 9.3 fL Critically low 9.5-13.5 [facility] Comment on above: Performed By: #### C BC #### [facility] [address] [place], [place] [address] Dr. Will Bain PLT 273 103/ul Normal 150-450 [facility] Comment on above: Performed By: #### C BC #### [facility] [address] [place], [place] [address] Dr. Will Bain RBC 4.51 106/ul Critically low 4.70-6.10 [facility] Comment on above: Performed By: #### C BC #### [facility] [address] [place], [place] [address] Dr. Will Bain WBC 8.2 103/ul Normal 4.0-11.0 [facility] Comment on above: Performed By: #### C BC #### [facility] [address] [place], [place] [address] Dr. Will Bain MG MAMM DIAGNOSTIC 3D RO CA Don 03-01-2023 MG MAMM DIAGNOSTIC 3D RO CAD Patient: VICK MERCADO Exam Date: 03/01/2023 : 1955 Gender:M Ordering : DR JAIRO CORBIN D.O. Admission #: [id number] Family : Order #: [id number] CLICK HERE TO VIEW EXAM RADIOLOGY REPORT PROCEDURE: MAMMOGRAM DIAGNOSTIC 3D BILATERAL CAD, 03/01/2023, 10:22 ULTRASOUND BREAST LEFT LIMITED, 03/01/2023, 11:05 COMPARISON: None. INDICATIONS: Hypertrophy of breast Calculator Name NCI Breast Cancer Risk Assessment Tool 5 Year Breast Cancer Risk Not Applicable. Lifetime Breast Cancer Risk Not Applicable. Personal Breast Cancer No Personal Ovarian Cancer No Treatments None Family Cancers None LOCATION: [facility] BREAST COMPOSITION: Almost entirely fatty. FINDINGS: DIAGNOSTIC [...] Barba MD on 03/01/2023 at 12:13 Normal [facility] PROF CHEM 8 (BAS METB)on Anion gap [Moles/Vol] 13.8 mmol/L Normal [facility] Comment on above: Performed By: #### A LT, AST, BMP #### [facility] [address] [place] [address] Dr. iWll Bain Calcium [Mass/Vol] 9.0 mg/dL Normal 8.5-10.1 [facility] Comment on above: Performed By: #### A LT, AST, BMP #### [facility] [address] [place] [address] Dr. Will Bain Chloride [Moles/Vol] 101 mmol/L Normal 98-107 [facility] Comment on above: Performed By: #### A LT, AST, BMP #### [facility] [address] [place] [address] Dr. Will Bain CO2 [Moles/Vol] 26.6 mmol/L Normal 21.0-32.0 [facility] Comment on above: Performed By: #### A LT, AST, BMP #### [facility] [address] [place] [address] Dr. Will Bain Creatinine [Mass/Vol] 0.92 mg/dL Normal 0.70-1.30 [facility] Comment on above: Performed By: #### A LT, AST, BMP #### [facility] [address] [place] [address] Dr. Will Bain EGFR-AF GHANAIAN >60 Normal >=60 [facility] Comment on above: Performed By: #### A LT, AST, BMP #### [facility] [address] [place] [address] Dr. Will Bain EGFR-NON AF GHANAIAN >60 Normal >=60 [facility] Comment on above: Performed By: #### A LT, AST, BMP #### [facility] [address] [place] [address] Dr. Will Bain Glucose [Mass/Vol] 121 mg/dL Critically high 74-106 [facility] Comment on above: Performed By: #### A LT, AST, BMP #### [facility] [address] [address] [address] Will Bain Potassium [Moles/Vol] 4.4 mmol/L Normal 3.5-5.1 [facility] Comment on above: Performed By: #### A LT, AST, BMP #### [facility] [address] [address] [address] Will Bain Sodium [Moles/Vol] 137 mmol/L Normal 136-145 [facility] Comment on above: Performed By: #### A LT, AST, BMP #### [facility] [address] [address] [address] Will Bain Urea nitrogen [Mass/Vol] 21.0 mg/dL Critically high 7.0-18.0 [facility] Comment on above: Performed By: #### A LT, AST, BMP #### [facility] [address] [place] [address] Dr. Will Bain Urea nitrogen/Creatinine [Mass ratio] 22.8 mg/mg Normal [facility] Comment on above: Performed By: #### A LT, AST, BMP #### [facility] [address] [place] [address] Dr. Will Bain [facility] 03-01-2023 AST [Catalytic activity/Vol] 24 U/L Normal 15-37 [facility] Comment on above: Performed By: #### A LT, AST, BMP ####[facility] [id number] [id number]. Will Bain [facility] 03-01-2023 ALT [Catalytic activity/Vol] 31 U/L Normal 16-63 [facility] Comment on above: Performed By: #### A LT, AST, BMP #### [facility] [address] [place] [address] Dr. Will Bain US BREAST LEFT LIMITEDon BREAST LEFT LIMITED Patient: VICK OLIVEIRA AM Exam Date: 03/01/2023 : 1955 Gender:M Ordering : DR JAIRO CORBIN D.O. Admission #: [id number] Family : Order #: [id number] CLICK HERE TO VIEW EXAM RADIOLOGY REPORT PROCEDURE: MAMMOGRAM DIAGNOSTIC 3D BILATERAL CAD, 03/01/2023, 10:22 ULTRASOUND BREAST LEFT LIMITED, 03/01/2023, 11:05 COMPARISON: None. INDICATIONS: Hypertrophy of breast Calculator Name NCI Breast Cancer Risk Assessment Tool 5 Year Breast Cancer Risk Not Applicable. Lifetime Breast Cancer Risk Not Applicable. Personal Breast Cancer No Personal Ovarian Cancer No Treatments None Family Cancers None LOCATION: [facility] BREAST COMPOSITION: Almost entirely fatty. [...] Barba MD on 03/01/2023 at 12:13 Normal [facility] Calcium [Mass/volume] in Ser um or PlasmaOrdered By: Brad Livingston on 02-25-2023 Calcium [Mass/Vol] 9.3 mg/dL 8.6-10.3 [facility] Carbon dioxide, total [Moles /volume] in Serum or PlasmaOrdered By: Brad Livingston on 02-25-2023 CO2 [Moles/Vol] 28.4 mmol/L 21.0-31.0 [facility] Chloride [Moles/volume] in S zina or PlasmaOrdered By: Brad Livingston on 02-25-2023 Chloride [Moles/Vol] 100 mmol/L 98-107 [facility] Creatinine [Mass/volume] in Serum or PlasmaOrdered By: Brad Livingston on 02-25-2023 Creatinine [Mass/Vol] 0.81 mg/dL 0.70-1.30 [facility] Glucose [Mass/volume] in Ser um or PlasmaOrdered By: Brad Livingston on 02-25-2023 Glucose [Mass/Vol] 110 mg/dL 70-100 [facility] Comment on above: ADA recommended refe rence rangeRandom Glucose Reference Range is dependent on time and content of last meal. Glucose of more than 200 mg/dL in a nonstressed, ambulatory subject supports the diagnosis of Diabetes Mellitus. Magnesium [Mass/volume] in S zina or PlasmaOrdered By: Brad Livingston on 02-25-2023 Magnesium [Mass/Vol] 2.3 mg/dL 1.9-2.7 [facility] No Panel InformationOrdered By: Brad Livingston on 02-25-2023 Estimated GFR (CKD-EPI) > 60.0 mL/Min [facility] Creatinine Clearance (Chem 90.12 [facility] Potassium [Moles/volume] in Serum or PlasmaOrdered By: Brad Livingston on 02-25-2023 Potassium [Moles/Vol] 4.3 mmol/L 3.5-5.1 [facility] Serum or plasma anion gap de terminationOrdered By: Brad Livingston on 02-25-2023 Anion gap [Moles/Vol] TNP [facility] Comment on above: Test not performed Sodium [Moles/volume] in Ser um or PlasmaOrdered By: Brad Livingston on 02-25-2023 Sodium [Moles/Vol] 137 mmol/L 136-145 [facility] Urea nitrogen [Mass/volume] in Serum or PlasmaOrdered By: Brad Livingston on 02-25-2023 Urea nitrogen [Mass/Vol] 25 mg/dL 7-25 [facility] Basophils Auto (Bld) [#/Vol] Ordered By: Mirna Aldridge on 02-24-2023 Basophils (Bld) [#/Vol] 0.1 10*3/uL 0.0-0.2 [facility] Basophils/100 WBC Auto (Bld) Ordered By: Mirna Aldridge on 02-24-2023 Basophils/100 WBC (Bld) 0.6 % . [facility] Eosinophils Auto (Bld) [#/Vo l]Ordered By: Mirna Aldridge on 02-24-2023 Eosinophils (Bld) [#/Vol] 0.3 10*3/uL 0.0-0.45 [facility] Eosinophils/100 WBC Auto (Bl d)Ordered By: Mirna Aldridge on 02-24-2023 Eosinophils/100 WBC (Bld) 3.0 % . [facility] Erythrocyte distribution wid th Auto (RBC) [Ratio]Ordered By: Mirna Aldridge on 02-24-2023 Erythrocyte distribution width (RBC) [Ratio] 13.3 % 12.0-14.8 [facility] Hematocrit Auto (Bld) [Volum e fraction]Ordered By: Mirna Aldridge on 02-24-2023 Hematocrit (Bld) [Volume fraction] 39.3 % 38.8-50.0 [facility] Hemoglobin [Mass/volume] in BloodOrdered By: Mirna Aldridge on 02-24-2023 Hemoglobin (Bld) [Mass/Vol] 13.4 g/dL 13.0-17.0 [facility] Leukocytes [#/volume] correc rehan for nucleated erythrocytes in Blood by Automated counOrdered By: Mirna Aldridge on 02-24-2023 WBC corrected for nucl RBC Auto (Bld) [#/Vol] 11.5 10*3/uL 4.1-10.5 [facility] Lymphocytes Auto (Bld) [#/Vo l]Ordered By: Mirna Aldridge on 02-24-2023 Lymphocytes (Bld) [#/Vol] 2.4 10*3/uL 1.00-4.8 [facility] Lymphocytes/100 WBC Auto (Bl d)Ordered By: Mirna Aldridge on 02-24-2023 Lymphocytes/100 WBC (Bld) 20.9 % . [facility] MCH Auto (RBC) [Entitic mass ]Ordered By: Mirna Aldridge on 02-24-2023 MCH (RBC) [Entitic mass] 30.2 pg 27.5-35.2 [facility] MCHC Auto (RBC) [Mass/Vol]Or dered By: Mirna Aldridge on 02-24-2023 MCHC (RBC) [Mass/Vol] 34.2 g/dL 32.5-35.6 [facility] MCV Auto (RBC) [Entitic vol] Ordered By: Mirna Aldridge on 02-24-2023 MCV (RBC) [Entitic vol] 88.4 fL 83.5-101 [facility] Monocytes Auto (Bld) [#/Vol] Ordered By: Mirna Aldridge on 02-24-2023 Monocytes (Bld) [#/Vol] 1.0 10*3/uL 0.0-0.8 [facility] Monocytes/100 WBC Auto (Bld) Ordered By: Mirna Aldridge on 02-24-2023 Monocytes/100 WBC (Bld) 9.1 % . [facility] Neutrophils Auto (Bld) [#/Vo l]Ordered By: Mirna Aldridge on 02-24-2023 Neutrophils (Bld) [#/Vol] 7.6 10*3/uL 1.8-7.7 [facility] Neutrophils/100 WBC Auto (Bl d)Ordered By: Mirna Aldridge on 02-24-2023 Neutrophils/100 WBC (Bld) 66.4 % . [facility] Nucleated erythrocytes [Pres ence] in Blood by Automated countOrdered By: Mirna Aldridge on 02-24-2023 Nucleated RBC Auto Ql (Bld) 0.1 /100{WBC} 0-0.5 [facility] Platelet mean volume Auto (B ld) [Entitic vol]Ordered By: Mirna Aldridge on 02-24-2023 Platelet mean volume (Bld) [Entitic vol] 7.7 fL 6.6-10.1 [facility] Platelets Auto (Bld) [#/Vol] Ordered By: Mirna Aldridge on 02-24-2023 Platelets (Bld) [#/Vol] 267 10*3/uL 150-450 [facility] RBC Auto (Bld) [#/Vol]Ordere d By: Mirna Aldridge on 02-24-2023 RBC (Bld) [#/Vol] 4.44 10*6/uL 3.90-5.60 [facility] Troponin I.cardiac [Mass/vol ume] in Serum or Plasma by Detection limit <= 0.01 ng/Ordered By: Mirna Aldridge on 02-24-2023 Troponin I.cardiac DL <= 0.01 ng/mL [Mass/Vol] 27.8 pg/mL 0.0-20.0 [facility] WBC Auto (Bld) [#/Vol]Ordere d By: Mirna Aldridge on 02-24-2023 WBC (Bld) [#/Vol] 11.5 10*3/uL 4.1-10.5 [facility] Monocyte distribution width [Entitic volume] in Blood by AutomatedOrdered By: Shalom Azar on 02-23-2023 Monocyte distribution width Auto (Bld) [Entitic vol] 17.08 % 0.00-20.00 [facility] Natriuretic peptide B [Mass/ Vol]Ordered By: Shalom Azar on 02-23-2023 Natriuretic peptide B (Bld) [Mass/Vol] 532.0 pg/mL 5-[address] [facility] [address] SINUSES WO CONon 02-20-[address] [...] by: ZARIA UNLU Date: 2023-02-19 18:32 Normal [facility] MRI BRAIN WO CONon 2 [...] IVÁN BARBA Date: 2022-06-01 11:35 Normal [facility] TSHon 06-01-2022 TSH 2.078 uIU/mL Normal 0.358-3.74 0 [facility] Comment on above: Performed By: #### T SH #### [facility] [address] [place] [address] Dr. Will Bain VITAMIN B12on 06-01-2022 Cobalamin (Vitamin B12) [Mass/Vol] 514.0 pg/mL Normal 193.0-986. 0 [facility] Comment on above: Performed By: #### V ITB12 #### [facility] [address] [place] [address] Dr. Will Bain Vital Signs Date Time Vital Sign Value Performing Clinician Facility 05-10-2025 16:17-0400 Body height 179.1 cm Karlo Aldridge APRN-DINKEY LOCOMOTIVE ENGINEER Work Phone: [facility] 05-10-2025 16:17-040 Body mass index (BMI) [Ratio] 30.41 kg/m2 Karlo Aldridge [employer]TON GRADER-DINKEY LOCOMOTIVE ENGINEER Work Phone: [facility] 05-10-2025 16:17-040 Body weight 97.52 kg Karlo Aldridge [employer] GRADER-DINKEY LOCOMOTIVE ENGINEER Work Phone: [facility] 05-10-2025 16:17-0400 Diastolic blood pressure 60 mm[Hg] Karlo Aldridge [employer]TON GRADER-DINKEY LOCOMOTIVE ENGINEER Work Phone: [facility] 05-10-2025 16:17-040 Heart rate 72 /min Karlo Aldridge [employer]TON GRADER-DINKEY LOCOMOTIVE ENGINEER Work Phone: [facility] 05-10-2025 16:17-0400 Systolic blood pressure 120 mm[Hg] Karlo Aldridge [employer] GRADER-DINKEY LOCOMOTIVE ENGINEER Work Phone: [phone] [place] [address] 05-01-2025 15:57-0400 Body height 177.8 cm Jairo Ball DO Work Phone: [facility] 05-01-2025 15:57-0400 Body mass index (BMI) [Ratio] 31 kg/m2 Jairo Ball DO Work Phone: [facility] 05-01-2025 15:57-0400 Body weight 98.14 kg Jairo Ball DO Work Phone: [facility] 05-01-2025 15:57-0400 Diastolic blood pressure 80 mm[Hg] Jairo Ball DO Work Phone: [facility] 05-01-2025 15:57-0400 Heart rate 67 /min Jairo Ball DO Work Phone: [facility] 05-01-2025 15:57-0400 Respiratory rate 12 /min Jairo Ball DO Work Phone: [facility] 05-01-2025 15:57-0400 SaO2% (BldA) [Mass fraction] 97 % Jairo Ball DO Work Phone: [facility] 05-01-2025 15:57-0400 Systolic blood pressure 134 mm[Hg] Jairo Ball DO Work Phone: [facility] 04-22-2025 15:35-0400 Body height 177.8 cm Jairo Ball DO Work Phone: [facility] 04-22-2025 15:35-0400 Body mass index (BMI) [Ratio] 31.3 kg/m2 Jairo Ball DO Work Phone: [facility] 04-22-2025 15:35-0400 Body weight 98.99 kg Jairo Ball DO Work Phone: [facility] 04-22-2025 15:35-0400 Diastolic blood pressure 86 mm[Hg] Jairo Ball DO Work Phone: [facility] 04-22-2025 15:35-0400 Heart rate 71 /min Jairo Ball DO Work Phone: [facility] 04-22-2025 15:35-0400 SaO2% (BldA) [Mass fraction] 96 % Jairo Ball DO Work Phone: [facility] 04-22-2025 15:35-0400 Systolic blood pressure 136 mm[Hg] Jairo Ball DO Work Phone: [facility] 04-22-2025 13:47-0400 Body height 177.8 cm Jairo Murcek DO Work Phone: [facility] 04-22-2025 13:47-0400 Body mass index (BMI) [Ratio] 28.7 kg/m2 Jairo Murcek DO Work Phone: [facility] 04-22-2025 13:47-0400 Body weight 90.72 kg Jairo Murcek DO Work Phone: [facility] 04-17-2025 17:56-0400 Body temperature 97.8 [degF] Jairo Ball DO Work Phone: [facility] 04-17-2025 17:56-0400 Diastolic blood pressure 74 mm[Hg] Jairo Ball DO Work Phone: [facility] 04-17-2025 17:56-0400 Heart rate 70 /min Jairo Ball DO Work Phone: [facility] 04-17-2025 17:56-0400 Respiratory rate 17 /min Jairo Ball DO Work Phone: [facility] 04-17-2025 17:56-0400 SaO2% (BldA) [Mass fraction] 97 % Jairo Ball DO Work Phone: [facility] 04-17-2025 17:56-0400 Systolic blood pressure 119 mm[Hg] Jairo Ball DO Work Phone: [facility] 04-17-2025 05:42-0400 Body weight 94.8 kg Jairo Ball DO Work Phone: [facility] 04-17-2025 05:42-0400 Inhaled oxygen flow rate 5 L/min Jairo Ball DO Work Phone: [facility] 04-16-2025 16:03-0400 Body height 179.07 cm Jairo Ball DO Work Phone: [facility] 04-16-2025 02:30-0400 Diastolic blood pressure 87 mm[Hg] Jairo Ball DO Work Phone: [facility] 04-16-2025 02:30-0400 Systolic blood pressure 146 mm[Hg] Jairo Ball DO Work Phone: [facility] 04-16-2025 01:30-0400 Heart rate 82 /min Jairo Ball DO Work Phone: [facility] 04-16-2025 01:30-0400 SaO2% (BldA) [Mass fraction] 92 % Jairo Ball DO Work Phone: [facility] 04-15-2025 21:15-0400 Respiratory rate 20 /min Jairo Ball DO Work Phone: [facility] 04-15-2025 17:29-0400 Body temperature 98.1 [degF] Jairo Ball DO Work Phone: [facility] 04-15-2025 17:23-0400 Body height 154.94 cm Jairo Ball DO Work Phone: [facility] 04-15-2025 17:23-0400 Body weight 51.45 kg Jairo Ball DO Work Phone: [facility] 03-25-2025 13:28-0400 Body height 177.8 cm Jairo Murcek DO Work Phone: [facility] 03-25-2025 13:28-0400 Body mass index (BMI) [Ratio] 28.7 kg/m2 Jairo Murcek DO Work Phone: [facility] 03-25-2025 13:28-0400 Body weight 90.72 kg Jairo Murcek DO Work Phone: [facility] 03-22-2025 13:14-0400 Body height 177.8 cm Jairo Ball DO Work Phone: [facility] 03-22-2025 13:14-0400 Body mass index (BMI) [Ratio] 30.9 kg/m2 Jairo Ball DO Work Phone: [facility] 03-22-2025 13:14-0400 Body weight 97.97 kg Jairo Ball DO Work Phone: [facility] 03-22-2025 13:14-0400 Diastolic blood pressure 71 mm[Hg] Jairo Ball DO Work Phone: [facility] 03-22-2025 13:14-0400 Heart rate 75 /min Jairo Ball DO Work Phone: [facility] 03-22-2025 13:14-0400 Systolic blood pressure 134 mm[Hg] Jairo Ball DO Work Phone: [facility] 03-11-2025 15:44-0400 Body height 177.8 cm Jairo Ball DO Work Phone: [facility] 03-11-2025 15:44-0400 Body mass index (BMI) [Ratio] 31.1 kg/m2 Jairo Ball DO Work Phone: [facility] 03-11-2025 15:44-0400 Body weight 98.54 kg Jairo Ball DO Work Phone: [facility] 03-11-2025 15:44-0400 Diastolic blood pressure 88 mm[Hg] Jairo Ball DO Work Phone: [facility] 03-11-2025 15:44-0400 Heart rate 92 /min Jairo Ball DO Work Phone: [facility] 03-11-2025 15:44-0400 Respiratory rate 12 /min Jairo Ball DO Work Phone: [facility] 03-11-2025 15:44-0400 Systolic blood pressure 142 mm[Hg] Jairo Ball DO Work Phone: [facility] 02-20-2025 13:08-0400 Body height 177.8 cm Jairo Murcek DO Work Phone: [facility] 02-20-2025 13:08-0400 Body mass index (BMI) [Ratio] 28.7 kg/m2 Jairo Murcek DO Work Phone: [facility] 02-20-2025 13:08-0400 Body weight 90.72 kg Jairo Murcek DO Work Phone: [facility] 01-21-2025 10:52-0400 Body height 179.1 cm Mary Neal MD Work Phone: [facility] 01-21-2025 10:52-0400 Body mass index (BMI) [Ratio] 30.98 kg/m2 Mary Neal MD Work Phone: [facility] 01-21-2025 10:52-0400 Body weight 99.34 kg Mary Neal MD Work Phone: [facility] 01-21-2025 10:52-0400 Diastolic blood pressure 80 mm[Hg] Mary Neal MD Work Phone: [facility] 01-21-2025 10:52-0400 Heart rate 80 /min Mary Neal MD Work Phone: [facility] 01-21-2025 10:52-0400 Systolic blood pressure 126 mm[Hg] Mary Neal MD Work Phone: [facility] 12-31-2024 16:01-0400 Body height 177.8 cm Jairo Ordazcek DO Work Phone: [facility] 12-31-2024 16:01-0400 Body mass index (BMI) [Ratio] 28.7 kg/m2 Jairo Murcek DO Work Phone: [facility] 12-31-2024 16:01-0400 Body weight 90.72 kg Jairo Murcek DO Work Phone: [facility] 12-25-2024 16:00-0400 Body temperature 97.8 [degF] Jairo Ball DO Work Phone: [facility] 12-25-2024 16:00-0400 Diastolic blood pressure 86 mm[Hg] Jairo Ball DO Work Phone: [facility] 12-25-2024 16:00-0400 Respiratory rate 18 /min Jairo Ball DO Work Phone: [facility] 12-25-2024 16:00-0400 SaO2% (BldA) [Mass fraction] 94 % Jairo Ball DO Work Phone: [facility] 12-25-2024 16:00-0400 Systolic blood pressure 135 mm[Hg] Jairo Ball DO Work Phone: [facility] 12-25-2024 11:09-0400 Heart rate 86 /min Jairo Ball DO Work Phone: [facility] 12-25-2024 01:00-0400 Body height 180.34 cm Jairo Ball DO Work Phone: [facility] 12-25-2024 01:00-0400 Body weight 96 kg Jairo Ball DO Work Phone: [facility] 12-24-2024 15:53-0400 Body height 177.8 cm [facility] 12-24-2024 15:53-0400 Body mass index (BMI) [Ratio] 31.7 kg/m2 [facility] 12-24-2024 15:53-0400 Body weight 100.3 kg [facility] 12-24-2024 15:53-0400 Diastolic blood pressure 89 mm[Hg] [facility] 12-24-2024 15:53-0400 Heart rate 90 /min [facility] 12-24-2024 15:53-0400 Respiratory rate 12 /min [facility] 12-24-2024 15:53-0400 Systolic blood pressure 139 mm[Hg] [facility] 11-30-2024 10:22-0500 Body height 179.1 cm Mary Neal MD Work Phone: [facility] 11-30-2024 10:22-0500 Body mass index (BMI) [Ratio] 30.67 kg/m2 Mary Neal MD Work Phone: [facility] 11-30-2024 10:22-0500 Body weight 98.34 kg Mary Neal MD Work Phone: [facility] 11-30-2024 10:22-0500 Diastolic blood pressure 90 mm[Hg] Mary Neal MD Work Phone: [facility] 11-30-2024 10:22-0500 Heart rate 66 /min Mary Neal MD Work Phone: [facility] 11-30-2024 10:22-0500 Systolic blood pressure 148 mm[Hg] Mary Neal MD Work Phone: [facility] 07-30-2024 11:51-0400 Body height 179.1 cm Mary Neal MD Work Phone: [facility] 07-30-2024 11:51-0400 Body mass index (BMI) [Ratio] 31.32 kg/m2 Mary Neal MD Work Phone: [facility] 07-30-2024 11:51-0400 Body weight 100.43 kg Mary Neal MD Work Phone: [facility] 07-30-2024 11:51-0400 Diastolic blood pressure 70 mm[Hg] Mary Neal MD Work Phone: [facility] 07-30-2024 11:51-0400 Heart rate 78 /min Mary Neal MD Work Phone: [facility] 07-30-2024 11:51-0400 Systolic blood pressure 126 mm[Hg] Mary Neal MD Work Phone: [facility] 06-22-2024 11:45-0400 Diastolic blood pressure 81 mm[Hg] DO Jairo Ball Work Phone: [facility] 06-22-2024 11:45-0400 Heart rate 62 /min DO Jairo Ball Work Phone: [facility] 06-22-2024 11:45-0400 Respiratory rate 16 /min DO Jairo Ball Work Phone: [facility] 06-22-2024 11:45-0400 SaO2% (BldA) [Mass fraction] 97 % DO Jairo Ball Work Phone: [facility] 06-22-2024 11:45-0400 Systolic blood pressure 120 mm[Hg] DO Jairo Ball Work Phone: [facility] 06-22-2024 10:10-0400 Body height 177.8 cm DO Jairo Ball Work Phone: [facility] 06-22-2024 10:10-0400 Body weight 97.97 kg DO Jairo Ball Work Phone: [facility] 05-30-2024 09:07-0400 Body height 177.8 cm [facility] 05-30-2024 09:07-0400 Body mass index (BMI) [Ratio] 31.4 kg/m2 [facility] 05-30-2024 09:07-0400 Body weight 99.5 kg [facility] 05-30-2024 09:07-0400 Diastolic blood pressure 83 mm[Hg] [facility] 05-30-2024 09:07-0400 Heart rate 60 /min [facility] 05-30-2024 09:07-0400 Respiratory rate 12 /min [facility] 05-30-2024 09:07-0400 Systolic blood pressure 169 mm[Hg] [facility] 05-01-2024 14:20-0400 Body height 177.8 cm [facility] 05-01-2024 14:20-0400 Body mass index (BMI) [Ratio] 31.7 kg/m2 [facility] 05-01-2024 14:20-0400 Body weight 100.35 kg [facility] 05-01-2024 14:20-0400 Diastolic blood pressure 81 mm[Hg] [facility] 05-01-2024 14:20-0400 Heart rate 68 /min [facility] 05-01-2024 14:20-0400 Respiratory rate 12 /min [facility] 05-01-2024 14:20-0400 Systolic blood pressure 144 mm[Hg] [facility] 01-31-2024 15:43-0400 Body height 177.8 cm [facility] 01-31-2024 15:43-0400 Body mass index (BMI) [Ratio] 31.1 kg/m2 [facility] 01-31-2024 15:43-0400 Body weight 98.48 kg [facility] 01-31-2024 15:43-0400 Diastolic blood pressure 91 mm[Hg] [facility] 01-31-2024 15:43-0400 Heart rate 73 /min [facility] 01-31-2024 15:43-0400 Respiratory rate 12 /min [facility] 01-31-2024 15:43-0400 Systolic blood pressure 161 mm[Hg] [facility] 01-30-2024 14:09-0400 Body height 177.8 cm Mary Neal MD Work Phone: [facility] 01-30-2024 14:09-0400 Body mass index (BMI) [Ratio] 31.57 kg/m2 Mary Neal MD Work Phone: [facility] 01-30-2024 14:09-0400 Body weight 99.79 kg Mary Neal MD Work Phone: [facility] 01-30-2024 14:09-0400 Diastolic blood pressure 62 mm[Hg] Mary Neal MD Work Phone: [facility] 01-30-2024 14:09-0400 Heart rate 58 /min Mary Neal MD Work Phone: [facility] 01-30-2024 14:09-0400 Systolic blood pressure 130 mm[Hg] Mary Neal MD Work Phone: [facility] 11-10-2023 13:53-0500 Body height 179.1 cm Mary Neal MD Work Phone: [facility] 11-10-2023 13:53-0500 Body mass index (BMI) [Ratio] 30.98 kg/m2 Mary Neal MD Work Phone: [facility] 11-10-2023 13:53-0500 Body weight 99.34 kg Mary Neal MD Work Phone: [facility] 11-10-2023 13:53-0500 Diastolic blood pressure 82 mm[Hg] Mary Neal MD Work Phone: [facility] 11-10-2023 13:53-0500 Heart rate 72 /min Mary Neal MD Work Phone: [facility] 11-10-2023 13:53-0500 Systolic blood pressure 120 mm[Hg] Mary Neal MD Work Phone: [facility] 11-01-2023 15:30-0500 Body height 177.8 cm DO Jairo Ball Work Phone: [facility] 11-01-2023 15:30-0500 Body weight 98.88 kg DO Jairo Ball Work Phone: [facility] 11-01-2023 15:30-0500 Diastolic blood pressure 77 mm[Hg] DO Jairo Ball Work Phone: [facility] 11-01-2023 15:30-0500 Systolic blood pressure 117 mm[Hg] DO Jairo Ball Work Phone: [facility] 10-24-2023 15:40-0500 Body temperature 97.6 [degF] DO Jairo Ball Work Phone: [facility] 10-24-2023 15:40-0500 Diastolic blood pressure 76 mm[Hg] DO Jairo Ball Work Phone: [facility] 10-24-2023 15:40-0500 Heart rate 65 /min DO Jairo Ball Work Phone: [facility] 10-24-2023 15:40-0500 Respiratory rate 18 /min DO Jairo Ball Work Phone: [facility] 10-24-2023 15:40-0500 SaO2% (BldA) [Mass fraction] 100 % DO Jairo Ball Work Phone: [facility] 10-24-2023 15:40-0500 Systolic blood pressure 135 mm[Hg] DO Jairo Ball Work Phone: [facility] 10-24-2023 06:00-0500 Body weight 94.1 kg DO Jairo Ball Work Phone: [facility] 10-24-2023 04:00-0500 Inhaled oxygen flow rate 2 L/min DO Jairo Ball Work Phone: [facility] 10-21-2023 18:32-0500 Body height 177.8 cm DO Jairo Ball Work Phone: [facility] 10-21-2023 17:16-0500 Diastolic blood pressure 98 mm[Hg] DO Jairo Ball Work Phone: [facility] 10-21-2023 17:16-0500 Heart rate 96 /min DO Jairo Ball Work Phone: [facility] 10-21-2023 17:16-0500 Respiratory rate 16 /min DO Jairo Ball Work Phone: [facility] 10-21-2023 17:16-0500 SaO2% (BldA) [Mass fraction] 94 % DO Jairo Ball Work Phone: [facility] 10-21-2023 17:16-0500 Systolic blood pressure 146 mm[Hg] DO Jairo Ball Work Phone: [facility] 10-21-2023 14:35-0500 Body temperature 98.6 [degF] DO Jairo Ball Work Phone: [facility] 10-21-2023 14:32-0500 Body height 177.8 cm DO Jairo Ball Work Phone: [facility] 10-21-2023 14:32-0500 Body weight 99.1 kg DO Jairo Ball Work Phone: [facility] 09-29-2023 14:04-0500 Body height 179.1 cm Mary Neal MD Work Phone: [facility] 09-29-2023 14:04-0500 Body mass index (BMI) [Ratio] 31.12 kg/m2 Mary Neal MD Work Phone: [facility] 09-29-2023 14:04-0500 Body weight 99.79 kg Mary Neal MD Work Phone: [facility] 09-29-2023 14:04-0500 Diastolic blood pressure 70 mm[Hg] Mary Neal MD Work Phone: [facility] 09-29-2023 14:04-0500 Heart rate 80 /min Mary Neal MD Work Phone: [facility] 09-29-2023 14:04-0500 Systolic blood pressure 120 mm[Hg] Mary Neal MD Work Phone: [facility] 09-13-2023 15:30-0500 Body height 177.8 cm Jairo Ball Other [facility] 09-13-2023 15:30-0500 Body mass index (BMI) [Ratio] 31.53 kg/m2 Jairo Ball Other [facility] [employer] Other 09-13-2023 15:30-0500 Body weight 99.7 kg Jairo Ball Other [facility] [employer] Other 09-13-2023 15:30-0500 Body weight 99.69 kg DO Jairo Ball Work Phone: [facility] 09-13-2023 15:30-0500 Diastolic blood pressure 84 mm[Hg] Jairo Ball Other [facility] 09-13-2023 15:30-0500 Respiratory rate 12 /min Jairo Ball Other [facility] [employer] Other 09-13-2023 15:30-0500 Systolic blood pressure 126 mm[Hg] Jairo Ball Other [facility] 09-05-2023 14:30-0500 Body height 177.8 cm Karlo Aldridge [employer]IN[employer] LOCOMOTIVE ENGINEER Work Phone: [facility] 09-05-2023 14:30-0500 Body mass index (BMI) [Ratio] 31.42 kg/m2 Karlo Aldridge [employer]IN[employer] LOCOMOTIVE ENGINEER Work Phone: [facility] 09-05-2023 14:30-0500 Body weight 99.34 kg Karlo Aldridge [employer]IN[employer] LOCOMOTIVE ENGINEER Work Phone: [facility] 09-05-2023 14:30-0500 Diastolic blood pressure 76 mm[Hg] Karlo Aldridge [employer]DIN[employer] LOCOMOTIVE ENGINEER Work Phone: [facility] 09-05-2023 14:30-0500 Heart rate 97 /min Karlo Aldridge [employer]IN[employer] LOCOMOTIVE ENGINEER Work Phone: [facility] 09-05-2023 14:30-0500 Systolic blood pressure 124 mm[Hg] Karlo Aldridge [employer]DIN[employer] LOCOMOTIVE ENGINEER Work Phone: [facility] 09-01-2023 08:17-0500 Body height 179.07 cm DO Jairo Ball Work Phone: [facility] 09-01-2023 08:17-0500 Body temperature 97.7 [degF] DO Jairo Ball Work Phone: [facility] 09-01-2023 08:17-0500 Body weight 100 kg DO Jairo Ball Work Phone: [facility] 09-01-2023 08:17-0500 Diastolic blood pressure 66 mm[Hg] DO Jairo Ball Work Phone: [facility] 09-01-2023 08:17-0500 Heart rate 109 /min DO Jairo Ball Work Phone: [facility] 09-01-2023 08:17-0500 SaO2% (BldA) [Mass fraction] 96 % DO Jairo Ball Work Phone: [facility] 09-01-2023 08:17-0500 Systolic blood pressure 114 mm[Hg] DO Jairo Ball Work Phone: [facility] 06-13-2023 14:47-0400 Body height 177.8 cm Jairo E Ball Work Phone: TC-Iucfmceccl-Glknean y 250 DO Work Phone: 06-13-2023 14:47-0400 Body mass index (BMI) [Ratio] 30.44 kg/m2 Jairo E Ball Work Phone: LW-Vwmunuhikm-Zuqqgbx y 250 DO Work Phone: 06-13-2023 14:47-0400 Body surface area Derived from formula 2.14 m2 Jairo E Ball Work Phone: BR-Wkinzmtwnw-Ydifmih y 250 DO Work Phone: 06-13-2023 14:47-0400 Body weight 96.22 kg Jairo E Ball Work Phone: EI-Qcpdldubpn-Yptbuwy y 250 DO Work Phone: 06-13-2023 14:47-0400 Diastolic blood pressure 78 mm[Hg] Jairo E Ball Work Phone: CR-Humrcygkij-Duhoxbx y 250 DO Work Phone: 06-13-2023 14:47-0400 Heart rate 56 /min Jairo E Ball Work Phone: DR-Bunbheccna-Gxtntes y 250 DO Work Phone: 06-13-2023 14:47-0400 Systolic blood pressure 138 mm[Hg] Jairo E Ball Work Phone: SA-Zecwdckted-Tuxndlm y 250 DO Work Phone: 05-11-2023 15:00-0400 Body height 177.8 cm Jairo Ball Other [facility] [employer] Other 05-11-2023 15:00-0400 Body mass index (BMI) [Ratio] 29.84 kg/m2 Jairo Ball Other [facility] [employer] Other 05-11-2023 15:00-0400 Body weight 94.35 kg Jairo Ball Other [facility] [employer] Other 05-11-2023 15:00-0400 Diastolic blood pressure 74 mm[Hg] Jairo Ball Other [facility] [employer] Other 05-11-2023 15:00-0400 Systolic blood pressure 136 mm[Hg] Jairo Ball Other [facility] [employer] Other 04-15-2023 11:53-0400 Body height 177.8 cm Jairo E Ball Work Phone: [facility] 250 DO Work Phone: 04-15-2023 11:53-0400 Body mass index (BMI) [Ratio] 29.99 kg/m2 Jairo E Ball Work Phone: [facility] 250 DO Work Phone: 04-15-2023 11:53-0400 Body surface area Derived from formula 2.13 m2 Jairo E Ball Work Phone: [facility] 250 DO Work Phone: 04-15-2023 11:53-0400 Body weight 94.8 kg Jairo E Ball Work Phone: [facility] 250 DO Work Phone: 04-15-2023 11:53-0400 Diastolic blood pressure 72 mm[Hg] Jairo E Ball Work Phone: [facility] 250 DO Work Phone: 04-15-2023 11:53-0400 Heart rate 60 /min Jairo E Ball Work Phone: [facility] 250 DO Work Phone: 04-15-2023 11:53-0400 Systolic blood pressure 124 mm[Hg] Jairo E Ball Work Phone: [facility] 250 DO Work Phone: 03-02-2023 18:36-0400 Body temperature 98.6 [degF] DO Jairo Ball Work Phone: [facility] 03-02-2023 18:36-0400 Diastolic blood pressure 72 mm[Hg] DO Jairo Ball Work Phone: [facility] 03-02-2023 18:36-0400 Heart rate 74 /min DO Jairo Ball Work Phone: [facility] 03-02-2023 18:36-0400 Respiratory rate 18 /min DO Jairo Ball Work Phone: [facility] 03-02-2023 18:36-0400 SaO2% (BldA) [Mass fraction] 96 % DO Jairo Ball Work Phone: [facility] 03-02-2023 18:36-0400 Systolic blood pressure 120 mm[Hg] DO Jairo Ball Work Phone: [facility] 03-02-2023 12:17-0400 Body height 177.8 cm DO Jairo Ball Work Phone: [facility] 03-02-2023 12:17-0400 Body weight 87.4 kg DO Jairo Ball Work Phone: [facility] 03-01-2023 15:15-0400 Body height 177.8 cm Jairo Ball Other [employer] Other 03-01-2023 15:15-0400 Body mass index (BMI) [Ratio] 29.21 kg/m2 Jairo Ball Other [employer] Other 03-01-2023 15:15-0400 Body weight 92.35 kg Jairo Ball Other [employer] Other 03-01-2023 15:15-0400 Diastolic blood pressure 67 mm[Hg] Jairo Ball Other [employer] Other 03-01-2023 15:15-0400 Respiratory rate 12 /min Jairo Ball Other [employer] Other 03-01-2023 15:15-0400 Systolic blood pressure 106 mm[Hg] Jairo Ball Other [employer] Other 02-25-2023 12:01-0400 Diastolic blood pressure 74 mm[Hg] DO Jairo Ball Work Phone: [facility] 02-25-2023 12:01-0400 Heart rate 80 /min DO Jairo Ball Work Phone: [facility] 02-25-2023 12:01-0400 Systolic blood pressure 125 mm[Hg] DO Jairo Ball Work Phone: [facility] 02-25-2023 12:00-0400 Respiratory rate 16 /min DO Jairo Ball Work Phone: [facility] 02-25-2023 12:00-0400 SaO2% (BldA) [Mass fraction] 96 % DO Jairo Ball Work Phone: [facility] 02-25-2023 08:00-0400 Body temperature 97.7 [degF] DO Jairo Ball Work Phone: [facility] 02-25-2023 06:10-0400 Body weight 87.4 kg DO Jairo Ball Work Phone: [facility] 02-25-2023 06:07-0400 Inhaled oxygen flow rate 2 L/min DO Jairo Ball Work Phone: [facility] 02-24-2023 13:01-0400 Body height 177.8 cm DO Jairo Ball Work Phone: [facility] 02-08-2023 16:30-0400 Body height 177.8 cm Jairo Ball Other [facility] [employer] Other 02-08-2023 16:30-0400 Body mass index (BMI) [Ratio] 30.19 kg/m2 Jairo Ball Other [employer] Other 02-08-2023 16:30-0400 Body weight 95.44 kg Jairo Ball Other [employer] Other 02-08-2023 16:30-0400 Diastolic blood pressure 75 mm[Hg] Jairo Ball Other [employer] Other 02-08-2023 16:30-0400 Respiratory rate 12 /min Jairo Ball Other [employer] Other 02-08-2023 16:30-0400 Systolic blood pressure 126 mm[Hg] Jairo Ball Other [employer] Other 02-08-2023 15:30-0400 Body height 177.8 cm Jairo Ball Other [employer] Other 02-08-2023 15:30-0400 Body mass index (BMI) [Ratio] 30.19 kg/m2 Jairo Ball Other [employer] Other 02-08-2023 15:30-0400 Body weight 95.44 kg Jairo Ball Other [employer] Other 02-08-2023 15:30-0400 Diastolic blood pressure 75 mm[Hg] Jairo Corbin Other [employer] Other 02-08-2023 15:30-0400 Respiratory rate 12 /min Jairo Corbin Other [employer] Other 02-08-2023 15:30-0400 Systolic blood pressure 126 mm[Hg] Jairo Corbin Other [employer] Other Encounters Encounter Date Encounter Type Care Provider Facility Start: 05-10-2025 End: 05-10-2025 Office outpatient visit 25 minutes Kalro Travis [place] [employer]IN[employer] LOCOMOTIVE ENGINEER Work Phone: [facility] Comment on above: Medically noncomplia nt (Primary Dx); Non-ischemic cardiomyopathy (Multi); Persistent atrial fibrillation (Multi); 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; Hypertension, benign; Body mass index (BMI) 30.0-30.9, adult; Obstructive sleep apnea syndrome Start: 05-10-2025 End: 05-10-2025 ambulatory [facility] Start: 05-01-2025 End: 05-01-2025 ambulatory Jairo Corbin DO Work Phone: [facility] Work Phone: Start: 05-01-2025 End: 05-01-2025 Patient encounter procedure Jairo Corbin DO -[facility] Work Phone: Start: 05-01-2025 Patient encounter procedure Jairo Corbin DO Work Phone: [facility] Start: 04-22-2025 End: 04-22-2025 Patient encounter procedure Jairo Corbin DO -[facility] [employer] Work Phone: Start: 04-22-2025 End: 04-22-2025 Postop follow up visit related to original px Jairo Wild DO Work Phone: [facility] Comment on above: Status post nasal se ptoplasty (Primary Dx); Chronic congestive heart failure, unspecified heart failure type (HCC) Start: 04-22-2025 End: 04-22-2025 ambulatory Jairo Corbin DO Work Phone: [facility] Work Phone: Start: 04-18-2025 Non-patient / Non-visit Madelinehannah Leahy CMA [facility] Work Phone: Start: 04-16-2025 End: 04-17-2025 Evaluation and management of inpatient Adonay Mai MD -[facility] Work Phone: Start: 04-15-2025 Evaluation and management of inpatient Ziggy Evans MD -[facility] Work Phone: Start: 04-15-2025 observation encounter Jairo Corbin DO Work Phone: [facility] Work Phone: Start: 04-10-2025 End: 04-10-2025 Telephone [...] 03-22-2025 Patient encounter procedure Marty Razo APRN -[facility] Work Phone: Start: 03-11-2025 End: 03-11-2025 ambulatory Jairo Corbin DO Work Phone: [facility] Work Phone: Start: 03-11-2025 End: 03-11-2025 Patient encounter procedure Jairo Corbin DO Work Phone: [facility] Work Phone: Start: 02-20-2025 [...] 02-13-2025 ambulatory Jairo Corbin DO Work Phone: [facility] Work Phone: Start: 02-13-2025 End: 02-13-2025 Departed Referred Jairo Corbin DO Work Phone: [facility] [place] Work Phone: Start: 01-21-2025 End: 01-21-2025 ambulatory [facility] Start: 01-21-2025 End: 01-21-2025 Office outpatient visit 25 minutes Mary Neal MD Work Phone: [facility] Comment on above: 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 con gestive heart failure, NYHA class 2; Non-ischemic cardiomyopathy (Multi); Medication course changed; Hypertension, benign; Atrial fibrillation, currently in sinus rhythm; Medically noncompliant; Former smoker; Body mass index (BMI) 30.0-30.9, adult; 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 Facility:[facility] Start: 12-24-2024 End: 12-24-2024 ambulatory [facility] Work Phone: Start: 12-24-2024 End: 12-24-2024 Patient encounter procedure [facility] Work Phone: Start: 12-10-2024 End: 12-10-2024 ambulatory [facility] Not Available Start: 11-30-2024 End: 11-30-2024 Office outpatient visit 25 minutes Mary Neal MD Work Phone: [facility] Comment on above: Pre-operative examin ation; Medically noncompliant; Medication course changed; 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 congestive heart failure, NYHA class 2; Atrial fibrillation, currently in sinus rhythm; Abnormal EKG; White coat syndrome with diagnosis of hypertension; FPC current use of 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 therapy; Obstructive sleep apnea syndrome; Non-ischemic cardiomyopathy (Multi); Former smoker; Body mass index (BMI) 30.0-30.9, adult Start: 11-30-2024 End: 11-30-2024 Preprocedural examination done Mary Neal MD Work Phone: [facility] Start: 11-30-2024 End: 11-30-2024 ambulatory [facility] Start: 11-30-2024 End: 11-30-2024 Encounter for other preprocedural examination [facility] Start: 11-28-2024 End: 12-03-2024 Telephone encounter Edwni Sy SPECIAL SYSTEMS TECHNICIAN [facility] Comment on above: Missed PT; FU Start: 11-22-2024 End: 11-22-2024 Bamboo flowsheet Edwin Sy SPECIAL SYSTEMS TECHNICIAN [facility] Start: 11-22-2024 End: 11-22-2024 Bamboo flowsheet Edwin Orozcoink SPECIAL SYSTEMS TECHNICIAN [facility] Start: 11-22-2024 End: 11-22-2024 ambulatory Edwin Sy SPECIAL SYSTEMS TECHNICIAN [facility] Comment on above: Cervical [...] 11-15-2024 End: 11-15-2024 Bamboo flowsheet Edwin Brink SPECIAL SYSTEMS TECHNICIAN [facility] Start: 11-15-2024 End: 11-15-2024 Bamboo flowsheet Edwin Brink SPECIAL SYSTEMS TECHNICIAN [facility] Start: 11-15-2024 End: 11-15-2024 ambulatory Edwin Brink SPECIAL SYSTEMS TECHNICIAN [facility] Comment on above: Cervical paraspinal muscle spasm (Primary Dx) Start: 11-13-2024 End: 11-13-2024 Bamboo flowsheet Edwin Brink SPECIAL SYSTEMS TECHNICIAN [facility] Start: 11-13-2024 End: 11-13-2024 Bamboo flowsheet Edwin Brink SPECIAL SYSTEMS TECHNICIAN [facility] Start: 11-13-2024 End: 11-13-2024 ambulatory Edwin Brink SPECIAL SYSTEMS TECHNICIAN [facility] Comment on above: Cervical [...] 11-06-2024 End: 11-06-2024 Bamboo flowsheet Edwin Brink SPECIAL SYSTEMS TECHNICIAN [facility] Start: 11-06-2024 End: 11-06-2024 Bamboo flowsheet Edwin Brink SPECIAL SYSTEMS TECHNICIAN [facility] Start: 11-06-2024 End: 11-06-2024 ambulatory Edwin Sy SPECIAL SYSTEMS TECHNICIAN [facility] Comment on above: Cervical paraspinal muscle spasm (Primary Dx) Start: 11-01-2024 End: 11-01-2024 Bamboo flowsheet Edwin Sy SPECIAL SYSTEMS TECHNICIAN [facility] Start: 11-01-2024 End: 11-01-2024 Bamboo flowsheet Edwin Sy SPECIAL SYSTEMS TECHNICIAN [facility] Start: 11-01-2024 End: 11-01-2024 ambulatory Edwin Sy SPECIAL SYSTEMS TECHNICIAN [facility] Comment on above: Cervical [...] 10-18-2024 End: 10-18-2024 Bamboo flowsheet Edwin Brink SPECIAL SYSTEMS TECHNICIAN [facility] Start: 10-18-2024 End: 10-18-2024 Bamboo flowsheet Edwin Brink SPECIAL SYSTEMS TECHNICIAN [facility] Start: 10-18-2024 End: 10-18-2024 ambulatory Edwin Brink SPECIAL SYSTEMS TECHNICIAN [facility] Comment on above: Cervical paraspinal muscle spasm (Primary Dx) Start: 10-15-2024 End: 10-15-2024 Bamboo flowsheet Edwin Brink SPECIAL SYSTEMS TECHNICIAN [facility] Start: 10-15-2024 End: 10-15-2024 Bamboo flowsheet Edwin Brink SPECIAL SYSTEMS TECHNICIAN [facility] Start: 10-15-2024 End: 10-15-2024 ambulatory Edwin Brink SPECIAL SYSTEMS TECHNICIAN [facility] Comment on above: Cervical paraspinal muscle spasm (Primary Dx) Start: 10-09-2024 End: 10-09-2024 Bamboo flowsheet Alia Escobary SPECIAL SYSTEMS TECHNICIAN [facility] Start: 10-09-2024 End: 10-09-2024 Bamboo flowsheet Alia Escobary SPECIAL SYSTEMS TECHNICIAN [facility] Start: 10-09-2024 End: 10-09-2024 ambulatory Alia Escobary SPECIAL SYSTEMS TECHNICIAN [facility] Comment on above: Cervical [...] 09-27-2024 End: 09-27-2024 Bamboo flowsheet Edwin Brink SPECIAL SYSTEMS TECHNICIAN [facility] Start: 09-27-2024 End: 09-27-2024 Bamboo flowsheet Edwin Brink SPECIAL SYSTEMS TECHNICIAN [facility] Start: 09-27-2024 End: 09-27-2024 ambulatory Edwin Brink SPECIAL SYSTEMS TECHNICIAN [facility] Comment on above: Cervical paraspinal muscle spasm (Primary Dx) Start: 09-21-2024 End: 09-21-2024 ambulatory Jairo Ball Facility:[facility] Start: 09-20-2024 End: 09-20-2024 Bamboo flowsheet Edwin Brink SPECIAL SYSTEMS TECHNICIAN [facility] Start: 09-20-2024 End: 09-20-2024 Bamboo flowsheet Edwin Brink SPECIAL SYSTEMS TECHNICIAN [facility] Start: 09-20-2024 End: 09-20-2024 ambulatory Edwin Brink SPECIAL SYSTEMS TECHNICIAN [facility] Comment on above: Cervical [...] 09-13-2024 End: 09-13-2024 Bamboo flowsheet Edwin Brink SPECIAL SYSTEMS TECHNICIAN [facility] Start: 09-13-2024 End: 09-13-2024 Bamboo flowsheet Edwin Brink SPECIAL SYSTEMS TECHNICIAN [facility] Start: 09-13-2024 End: 09-13-2024 ambulatory Edwin Brink SPECIAL SYSTEMS TECHNICIAN [facility] Comment on above: Cervical [...] (Primary Dx) Start: 08-08-2024 End: 08-08-2024 ambulatory [facility] Start: 07-30-2024 End: 07-30-2024 Office outpatient visit 25 minutes Mary Neal MD Work Phone: [facility] Comment on above: Non-ischemic cardiom yopathy (Multi); Persistent atrial fibrillation (Multi); Hypertension, benign; 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 congestive heart failure, NYHA class 2; 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; BMI 31.0-31.9,adult; Former smoker; Lipid screening Start: 07-30-2024 End: 07-30-2024 ambulatory [facility] Start: 06-22-2024 Non-patient / Non-visit DO Pedro Corbin Work Phone: [facility] Work Phone: Start: 06-22-2024 End: 06-22-2024 Admission to same day surgery center DO Jairo Corbin Work Phone: [facility] Work Phone: Start: 06-22-2024 End: 06-22-2024 ambulatory DO Jairo Corbin Work Phone: [facility] Work Phone: Start: 05-30-2024 End: 05-30-2024 ambulatory [facility] Work Phone: Start: 05-30-2024 End: 05-30-2024 Patient encounter procedure [facility] Work Phone: Start: 05-10-2024 Non-patient / Non-visit [facility] Work Phone: Start: 05-01-2024 End: 05-01-2024 ambulatory [facility] Work Phone: Start: 05-01-2024 End: 05-01-2024 Patient encounter procedure [facility] Work Phone: Start: 03-23-2024 Non-patient / Non-visit [facility] Work Phone: Start: 02-11-2024 End: 02-12-2024 ambulatory [facility] Start: 02-11-2024 End: 02-11-2024 Subsequent hospital visit by physician Ashli Fabian Echo/Vasc Room 2 [facility] Comment on above: 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 con gestive heart failure, NYHA class 2 (Multi); Persistent atrial fibrillation (Multi); Non-ischemic cardiomyopathy (Multi) Start: 01-31-2024 End: 01-31-2024 ambulatory [facility] Work Phone: Start: 01-31-2024 End: 01-31-2024 Patient encounter procedure [facility] Work Phone: Start: 01-30-2024 Encounter for other preprocedural examination [facility] Start: 01-30-2024 End: 01-30-2024 Office outpatient visit 25 minutes Mary Neal MD Work Phone: [facility] Comment on above: 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 con gestive heart failure, NYHA class 2 (Multi); Persistent atrial fibrillation (Multi); Pre-operative examination; Former smoker; BMI 31.0-31.9,adult; Coronary artery disease involving igiugig coronary artery of igiugig heart without angina pectoris; Sinus bradycardia; Non-ischemic cardiomyopathy (Multi); Hypertension, benign Start: 01-30-2024 End: 01-30-2024 Preprocedural examination done Mary Neal MD Work Phone: [facility] Start: 11-10-2023 End: 11-10-2023 Office outpatient visit 25 minutes Mary Neal MD Work Phone: [facility] Comment on above: Hospital discharge f ollow-up; Persistent atrial fibrillation (CMS/HCC); FPC current use of 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 therapy; Non-ischemic cardiomyopathy (CMS/HCC); 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 congestive heart failure, NYHA class 2 (CMS/HCC); Coronary artery disease involving igiugig coronary artery of igiugig heart without angina pectoris; Hypertension, benign; Former smoker Start: 11-01-2023 End: 11-01-2023 Patient encounter procedure DO Jairo Corbin Work Phone: [facility]- Start: 10-26-2023 End: 10-26-2023 ambulatory Jairo Corbin Other [employer] Other Start: 10-26-2023 Telephone encounter [facility] Start: 10-21-2023 Non-patient / Non-visit DO Pedro Corbin Work Phone: [facility] Work Phone: Start: 10-12-2023 Chart abstracting Scanning Pro [employer] External [facility] Start: 09-29-2023 End: 09-29-2023 Office outpatient visit 25 minutes Mary Neal MD Work Phone: [facility] Comment on above: Persistent atrial fi brillation (CMS/HCC); Paroxysmal atrial fibrillation (CMS/HCC); Non-ischemic cardiomyopathy (CMS/HCC); 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 congestive heart failure, NYHA class 2 (CMS/HCC); Coronary artery disease involving igiugig coronary artery of igiugig heart without angina pectoris; SOB (shortness of breath); Hypertension, benign; FPC current use of 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 therapy; Obstructive sleep apnea syndrome; Former smoker; Obesity (BMI 30.0-34.9); Personal history of COVID-19; Dilated cardiomyopathy (CMS/HCC); Medication course changed Start: 09-13-2023 Office outpatient vi sit 25 minutes Jairo VALADEZ [facility] Start: 09-13-2023 End: 09-13-2023 ambulatory DO Jairo Corbin Work Phone: [facility] [employer] Other Start: 09-13-2023 End: 09-13-2023 Departed Referred DO Jairo Corbin Work Phone: [facility] [place] Start: 09-13-2023 End: 09-13-2023 Patient encounter procedure DO Jairo Corbin Work Phone: [facility] Work Phone: Start: 09-10-2023 End: 09-10-2023 ambulatory J[address] Corbin Other [facility] [employer] Other Start: 09-10-2023 Telephone encounter [facility] Start: 09-07-2023 End: 09-07-2023 ambulatory Jairo Corbin Other [facility] [employer] Other Start: 09-07-2023 Telephone encounter [facility] Start: 09-05-2023 End: 09-05-2023 Office outpatient visit 25 minutes Karlo Aldridge [employer]AD[employer]DIN[employer] LOCOMOTIVE ENGINEER Work Phone: [facility] Comment on above: Dilated cardiomyopat hy (CMS/HCC) (Primary Dx); Paroxysmal atrial fibrillation (CMS/HCC); Hypertension, benign; Obstructive sleep apnea syndrome; Class 1 obesity due to excess calories with serious comorbidity and body mass index (BMI) of 30.0 to 30.9 in adult; 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 Start: 09-01-2023 End: 09-01-2023 ambulatory DO Jairo Corbin Work Phone: [facility] Work Phone: Start: 09-01-2023 End: 09-01-2023 Patient encounter procedure DO Jairo Corbin Work Phone: [facility]-Pre-Surgical Testing Work Phone: Start: 08-24-2023 End: 08-25-2023 ambulatory KARLO K [facility] Start: 06-16-2023 End: 06-16-2023 ambulatory Jairo Corbin Other [employer] Other Start: 06-16-2023 Telephone encounter Jairo PATRICIA G [facility] Start: 06-13-[address] Jairo Corbin Facility: Start: 06-13-2023 Office outpatient vi sit 15 minutes Jairo Corbin Work Phone: [facility] 600 DO Work Phone: Start: 06-13-2023 Patient encounter procedure Jairo Corbin Work Phone: [facility]-Bwnpzlbx 250 DO Work Phone: Start: 05-12-2023 Chart Update Jairo julian Work Phone: [facility]-[place] 250 DO Work Phone: Start: 05-11-2023 End: 05-11-2023 ambulatory [address] Corbin Other [facility] [employer] Other Start: 05-11-2023 Office outpatient vi sit 25 minutes Jairo Corbin [facility] Start: 05-05-[address] Jairo Corbin Facility:[id number] Start: 04-20-2023 Image Encounter Jairo julian Work Phone: [facility]-[place] 250 DO Work Phone: Start: 04-15-2023 Telephone encounter Jairo PATRICIA G [facility] Start: 04-15-2023 Office outpatient vi sit 40 minutes Jairo Corbin Work Phone: [facility]-[place] 250 DO Work Phone: Start: 04-15-2023 End: 04-15-[address] Jairo Corbin [facility] [employer] Other Start: 04-12-2023 End: 04-12-2023 ambulatory Jairo Corbin Other [facility] [employer] Other Start: 04-12-2023 Telephone encounter Jairo Corbin FP G [facility] Start: 03-22-2023 Telephone encounter Jorge jiménez DO Work Phone: [facility] 250 DO Work Phone: Start: 03-06-2023 End: 03-06-2023 ambulatory Jairo Corbin Other [facility] [employer] Other Start: 03-06-2023 Telephone encounter Jairo Corbin FP G [facility] Start: 03-02-2023 Telephone encounter Jairo Corbin BELEM G [facility] Start: 03-02-2023 End: 03-02-2023 Admission to same day surgery center DO Jairo Shaquille Work Phone: [facility] Ctr-Coat Operator Insulator Work Phone: Start: 03-02-2023 End: 03-02-2023 ambulatory DO Jairo Shaquille Work Phone: [facility] Work Phone: Start: 03-02-[address] Jorge Lucio Facility:[id number] Start: 03-01-2023 Transitional care manage srvc 14 day discharge Jairo Corbin [facility] Start: 03-01-2023 End: 03-02-[address] CORBIN [facility] [employer] Other Start: 02-25-2023 Message Jorge mcadams DO Work Phone: [facility]-[place] 250 DO Work Phone: Start: 02-25-[address] Jairo Corbin Facil ity:[facility] Start: 02-25-[address] Jairo Corbin Facil ity:[id number] Start: 02-24-[address] Jairo Corbin Facility:[id number] Start: 02-23-2023 End: 02-25-2023 Evaluation and management of inpatient DO Jairo Shaquille Work Phone: [facility] Work Phone: Start: 02-19-2023 End: 02-20-[address] JAIRO CORBIN Facility:[id number] Start: 02-09-2023 End: 02-09-2023 ambulatory Jairo Shaquille Other [employer] Other Start: 02-09-2023 Telephone encounter Jairo Corbin FP G [facility] Start: 02-08-2023 End: 02-08-2023 ambulatory Jairo Corbin Other [employer] Other Start: 02-08-2023 Patient encounter procedure Jairo Corbin [facility] Start: 02-01-2023 End: 02-01-2023 ambulatory Jairo Shaquille Other [employer] Other Start: 02-01-2023 Telephone encounter Jairo Corbin FP G [facility] Start: 12-15-2022 End: 12-15-2022 ambulatory Jairo Corbin Other [employer] Other Start: 12-15-2022 Office outpatient vi sit 15 minutes Jairo Corbin [facility] Start: 12-15-2022 Telephone encounter Jairo Corbin FP G [facility] Start: 12-10-2022 End: 12-10-2022 ambulatory Jairo Corbin Other [employer] Other Start: 12-10-2022 Office outpatient vi sit 15 minutes Jairo Corbin [facility] Start: 11-27-2022 End: 11-27-2022 ambulatory Jairo Corbin Other [employer] Other Start: 11-27-2022 Telephone encounter Jairo Corbin [...] ecg w/least 12 lds w/i&r Karlo Aldridge BUTTON GRADER-DINKEY LOCOMOTIVE ENGINEER Work Phone: Start: 08-24-2023 NM HEART BLOOD [...] Activity Detail Author Start: 04-16-2026 Echocardiography Echocardiogram [facility] Start: 07-29-2025 End: 07-29-2025 Patient encounter procedure 07/29/2025 12:30 PM EDT Office Visit [facility] [address] [facility] [address] [place] [address] Mary Neal MD [address] [facility] [address] [place] [address] [facility] Start: 06-27-2025 DTaP,Tdap and Td Vaccines (2 - Td or Tdap) DTaP,Tdap and Td Vaccines (2 - Td or Tdap) [facility] Start: 06-27-2025 DTaP/Tdap/Td Vaccines (2 - Td or Tdap) DTaP/Tdap/Td Vaccines (2 - Td or Tdap) [facility] Start: 06-03-2025 Influenza vaccination [facility] Start: 04-30-2025 [facility] Start: 04-29-2025 [facility] Start: 04-28-2025 [facility] Start: 04-27-2025 [facility] Start: 04-26-2025 [facility] Start: 04-25-2025 [facility] Start: 04-24-2025 [facility] Start: 04-23-2025 [facility] Start: 04-22-2025 [facility] Start: 04-21-2025 [facility] Start: 04-20-2025 [facility] Start: 04-19-2025 [facility] Start: 04-18-2025 [facility] Start: 04-17-2025 End: 04-17-2025 [facility] Start: 04-16-2025 [facility] Start: 04-16-2025 Referral to printing pressman [facility] Start: 04-16-2025 [facility] Start: 04-15-2025 Hospital admission [facility] Start: 03-25-2025 End: 03-25-2025 Patient encounter procedure [facility] FABIAN Comment on above: Arrived Start: 02-20-2025 End: 02-20-2025 Patient encounter procedure [facility] LOUISE FABIAN Comment on above: Arrived Start: 02-13-2025 [facility] Start: 02-10-2025 Echocardiography Echocardiogram [facility] Start: 01-31-2025 End: 01-31-2025 Patient encounter procedure 01/31/2025 1:00 PM EDT Office Visit [facility] [address] [facility] [address] [place] [address] Mary Neal MD [address] [facility] [address] [place] [address] [facility] Start: 12-31-2024 End: 12-31-2024 Patient encounter procedure 12/31/2024 4:00 PM EDT Office Visit [facility] [address] [place] [address] Jairo Wild, [address] [place] [address] Arrived [facility] LOUISE VARGASY Comment on above: Arrived Start: 12-25-2024 [facility] Start: 12-25-2024 Sleep disorder assessment [facility] Start: 12-25-2024 Referral to printing pressman [facility] Start: 12-25-2024 Hospital admission [facility] Start: 12-10-2024 End: 12-10-2024 ambulatory 12/10/2024 10:00 AM EDT Treatment [facility] [address] [place] [address] Edwin Sy, SPECIAL SYSTEMS TECHNICIAN [facility] Start: 11-28-2024 End: 11-28-2024 ambulatory 11/28/2024 10:00 AM EST Treatment [facility] [address] [place] [address] Edwin Sy, SPECIAL SYSTEMS TECHNICIAN [facility] Start: 11-22-2024 End: 11-22-2024 ambulatory [facility] Comment on above: Arrived Start: 11-20-2024 End: 11-20-2024 ambulatory [facility] Comment on above: Arrived Start: 11-15-2024 End: 11-15-2024 ambulatory 11/15/2024 11:30 AM EST Treatment [facility] [address] [place] [address] Edwin Sy, SPECIAL SYSTEMS TECHNICIAN [facility] Start: 11-13-2024 End: 11-13-2024 ambulatory [facility] Comment on above: Arrived Start: 11-08-2024 End: 11-08-2024 ambulatory 11/08/2024 9:00 AM EST Treatment [facility] [address] [place] [address] Mao Jesus, PT [address] [place] [address] [facility] Start: 11-06-2024 End: 11-06-2024 ambulatory [facility] Comment on above: Arrived Start: 11-01-2024 End: 11-01-2024 ambulatory [facility] Comment on above: Arrived Start: 10-30-2024 End: 10-30-2024 ambulatory [facility] Comment on above: Arrived Start: 10-25-2024 End: 10-25-2024 ambulatory 10/25/2024 9:00 AM EST Treatment [facility] [address] [place] [address] Mao Jesus, PT [address] [place] [address] [facility] Start: 10-23-2024 End: 10-23-2024 ambulatory 10/23/2024 9:00 AM EST Treatment [facility] [address] [place] [address] Mao Jesus, PT [address] [place] [address] [facility] Start: 10-21-2024 [facility] Start: 10-18-2024 End: 10-18-2024 ambulatory [facility] PT Comment on above: Arrived Start: 10-15-2024 End: 10-15-2024 ambulatory [facility] PT Comment on above: Arrived Start: 10-11-2024 End: 10-11-2024 ambulatory 10/11/2024 9:30 AM EST Treatment [facility] [address] [facility] [address] [place] [address] Alia Hopkins, SPECIAL SYSTEMS TECHNICIAN [facility] Start: 10-09-2024 End: 10-09-2024 ambulatory [facility] Comment on above: Arrived Start: 10-01-2024 End: 10-01-2024 ambulatory [facility] PT Comment on above: Arrived Start: 09-27-2024 End: 09-27-2024 ambulatory 09/27/2024 9:00 AM EST Treatment [facility] [address] [facility] [address] [place] [address] Edwin Sy SPECIAL SYSTEMS TECHNICIAN [facility] Start: 09-24-2024 End: 09-24-2024 ambulatory 09/24/2024 8:30 AM EST Treatment [facility] [address] [facility] [address] [place] [address] Mao Jesus, PT [address] [place] [address] [facility] Start: 09-20-2024 End: 09-20-2024 ambulatory [facility] Comment on above: Arrived Start: 09-17-2024 End: 09-17-2024 ambulatory 09/17/2024 8:00 AM EST Treatment [facility] [address] [place] [address] Mao Jesus, PT [address] [facility] [address] [place] [address] [facility] Start: 09-13-2024 End: 09-13-2024 ambulatory [facility] Comment on above: Arrived Start: 09-11-2024 End: 09-11-2024 ambulatory 09/11/2024 8:30 AM EST Evaluation [facility] [address] [facility] [address] [place] [address] ShawnaaldairMao, PT [address] [facility] [address] [place] [address] Arrived [facility] Comment on above: Arrived Start: 08-08-2024 End: 08-08-2024 Professional / ancillary services management 08/08/2024 1:00 PM EST Ancillary Procedure [facility] [address] [facility] [address] [place] [address] [facility] Start: 07-30-2024 End: 07-30-2025 CBC panel - Blood by Automated count CBC Lab Routine Non-ischemic cardiomyopathy (Multi) Expected: 07/30/2024, Expires: 07/30/2025 [facility] Work Phone: Comment on above: Expected: 07/30/2024, Expires: Start: 07-30-2024 End: 07-30-2025 Comprehensive metabolic 2000 panel - Serum or Plasma Comprehensive Metabolic Panel Lab Routine Non-ischemic cardiomyopathy (Multi) Expected: 07/30/2024, Expires: 07/30/2025 [facility] Service Area Work Phone: Comment on above: Expected: 07/30/2024, Expires: Start: 07-30-2024 End: 07-30-2025 Holter monitor study Holter Or Event Continuous Improvement Analyst Cardiac Services Routine Persistent atrial fibrillation (Multi) Expected: 07/30/2024 (Approximate), Expires: 07/30/2025 [facility] Work Phone: Comment on above: Expected: 07/30/2024 (Approximate), Expi res: 07/30/2025 Start: 06-22-2024 End: 06-22-2024 [facility] Start: 06-03-2024 COVID-19 Vaccine ( season) COVID-19 Vaccine () [facility] Start: 06-03-2024 Influenza vaccination [facility] Start: 05-01-2024 Patient referral [facility] Work Phone: Start: 03-26-2024 End: 03-26-2024 Patient encounter procedure 03/26/2024 1:15 PM EDT Office Visit [facility] [address] [place] [address] Mary Neal MD [address] [place] [address] [facility] Start: 02-25-2024 Echocardiography Echocardiogram [facility] Start: 02-11-2024 End: 02-11-2024 Patient encounter procedure 02/11/2024 1:30 PM EDT Appointment [facility] [address] [place] [address] [facility] Start: 02-02-2024 End: 02-02-2024 Patient encounter procedure 02/02/2024 12:30 PM EDT Office Visit [facility] [address] [place] [address] Mary Neal MD [address] [place] [address] [facility] Start: 01-30-2024 End: 01-29-2026 Heart Transthoracic [...] Hypertension, benign Expected: 11/17/2023 (Approximate), Expires: 11/10/2024 [facility] Work Phone: Comment on above: Expected: 11/17/2023 (Approximate), Expi res: 11/10/2024 Start: 11-10-2023 End: 11-10-2023 Patient encounter procedure 11/10/2023 1:45 PM EST Office Visit [facility] [address] [facility] [address] [place] [address] Mary Neal MD [address] [facility] [address] [place], [place] [address] [facility] Start: 10-24-2023 End: 10-24-2023 [facility] Start: 10-23-2023 [facility] Start: 10-22-2023 Thiamine [Moles/volume] in Blood [facility] Start: 10-22-2023 [facility] Start: 10-21-2023 Hospital admission [facility] Start: 10-21-2023 Referral to printing pressman [facility] Start: 10-21-2023 [facility] Start: 10-19-2023 End: 10-19-2023 Patient encounter procedure 10/19/2023 9:00 AM EST Office Visit [facility] [address] [place] [address] Ceci Fuller MD [address] [place] [address] [facility] Start: 09-29-2023 End: 09-29-2023 Patient encounter procedure 09/29/2023 1:45 PM EST Office Visit [facility] [address] [facility] [address] [place] [address] Mary Neal MD [address] [place] [address] [address] [place] [address] [facility] Start: 09-15-2023 MUGA, Provider: CAREN HHVI NUCLEAR 01,[id number], Status: Pen, Time: 2:30 PM MUGA, Provider: CAREN HHVI NUCLEAR 01,[id number], Status: Pen, Time: 2:30 PM FB-Runwauvxfn-Zovcd erick 250 DO Work Phone: Start: 09-15-2023 EKG, Provider: SARI SANTANA MEDICAL OFFICE SECRETARY 1,[id number], Status: Pen, Time: 2:15 PM EKG, Provider: SARI SANTANA MEDICAL OFFICE SECRETARY 1,[id number], Status: Pen, Time: 2:15 PM UU-Bklxqrfpkw-Ibhmw erick 250 DO Work Phone: Start: 09-13-2023 Nasal septoplasty OR Nasal Septoplasty/Poss Turbinates (Bilateral) [facility] Start: 07-21-2023 FUV, Provider: Jorge Lucio, Status: Pen, Time: 11:10 AM FUV, Provider: Jorge Lucio, Status: Pen, Time: 11:10 AM [facility]-[place] 250 DO Work Phone: Start: 06-03-2023 COVID-19 Vaccine ( season) COVID-19 Vaccine ( season) [facility] Start: 06-03-2023 Influenza vaccination [facility] Start: 05-05-2023 MUGA, Provider: CAREN HHVI NUCLEAR 01,[id number], Status: Pen, Time: 2:30 PM MUGA, Provider: CAREN HHVI NUCLEAR 01,[id number], Status: Pen, Time: 2:30 PM [facility]-[place] 250 DO Work Phone: Start: 04-15-2023 FUV, Provider: Jorge Lucio, Status: Pen, Time: 11:00 AM FUV, Provider: Jorge Lucio, Status: Pen, Time: 11:00 [facility] 250 DO Work Phone: Start: 03-02-2023 [facility] Start: 02-25-2023 [facility] Start: 02-24-2023 Referral to printing pressman [facility] Start: 02-24-2023 Sleep disorder assessment [facility] Start: 02-23-2023 Hospital admission [facility] Start: 03-03-2022 Pneumococcal vaccination Pneumococcal Vaccine (3 of 3 - PCV20 or PCV21) [facility] Start: 03-03-2022 Pneumococcal Vaccine: 65+ Years (3 - PPSV23 or PCV20) Pneumococcal Vaccine: 65+ Years (3 - PPSV23 or PCV20) [facility] Start: 03-03-2022 Pneumococcal Vaccine: 65+ Years (3 of 3 - PPSV23 or PCV20) Pneumococcal Vaccine: 65+ Years (3 of 3 - PPSV23 or PCV20) [facility] Start: 2019 Abdominal aortic aneurysm screening Abdominal Aortic Aneurysm (AAA) Screening [facility] Start: 2019 Fall Risk Screening Fall Risk Screening [facility] Start: 09-06-2018 MMR Vaccines (1 of 1 - Standard series) MMR Vaccines (1 of 1 - Standard series) [facility] Start: 2014 RSV High Risk: (Elderly (60+) or Population) (1 - Risk 60-74 years 1-dose series) RSV High Risk: (Elderly (60+) or Population) (1 - Risk 60-74 years 1-dose series) [facility] Start: 2014 RSV patients and/or patients aged 60+ years (1 - 1-dose 60+ series) RSV patients and/or patients aged 60+ years (1 - 1-dose 60+ series) [facility] Start: 10-05-2013 Administration of varicella zoster vaccine Zoster (Shingles) Vaccine (2 of 3) [facility] Start: 10-05-2013 Zoster Vaccines (2 of 3) Zoster Vaccines (2 of 3) [facility] Start: 1972 Adult BMI Screening Adult BMI Screening [facility] Start: 1972 Diabetes mellitus screening Diabetes Screening [facility] Start: 1972 Hepatitis C screening Hepatitis C Screening [facility] Start: 1966 Depression Screening Depression Screening [facility] Start: 1966 Tobacco Screening Tobacco Screening [facility] Start: 1954 COVID-19 Vaccine (#1) COVID-19 Vaccine (#1) [facility] Start: 1954 Creatinine measurement Creatinine Level [facility] Start: 1954 Lipid panel Lipid Panel [facility] Start: 1954 Medicare Annual Wellness Visit [facility] Start: 1954 Potassium measurement Potassium Level [facility] Start: 1954 Screening for malignant neoplasm of colon [facility] aPTT in Platelet poo r plasma by Coagulation assay [facility] Comprehensive metabo lic 1999 panel - Serum or Plasma [facility] Comprehensive metabo lic 1999 panel - Serum or Plasma [facility] ECG 12 Lead ECG 12 Lead ECG Routine Paroxysmal atrial fibrillation (CMS/HCC) 09/07/2023 10:29 AM EST [facility] Service Area Work Phone: INR in Platelet poor plasma by Coagulation assay [facility] INR in Platelet poor plasma by Coagulation assay [facility] Patient Education [facility] Work Phone: Patient referral [facility] Work Phone: Prothrombin time (PT) [facility] Prothrombin time (PT) [facility] End: 02-11-2024 US Heart Transthoracic [facility] Service Area Work Phone: Comment on above: Once for 1 Occurrences starting 02/11/20 24 until 02/11/2024 [facility] Immunizations Immunization Date Immunization Notes Care Provider Fa cilicortney 07-06-2019 Seasonal trivalent influenza vaccine, adjuvanted, preservative free Jorge Lucio DO Work Phone: [facility] [place] 250 DO Work Phone: 07-06-2019 influenza virus vaccine, unspecified formulation Karlo Aldridge BUTTON GRADER-DINKEY LOCOMOTIVE ENGINEER Work Phone: [facility] Work Phone: 08-09-2018 influenza, live, intranasal, quadrivalent Jorge Lucio DO Work Phone: [facility] [place] 250 DO Work Phone: 09-01-2017 influenza, seasonal, injectable, preservative free Jorge Lucio DO Work Phone: [facility] [place] [address] DO Work Phone: 03-03-2017 pneumococcal polysaccharide vaccine, 23 valent Jairo Corbin Other [employer] Other 06-27-2015 influenza, seasonal, injectable, preservative free Jorge Lucio DO Work Phone: [facility] [place] [address] DO Work Phone: 06-27-2015 pneumococcal conjuga te vaccine, 13 valent [facility] DO [facility] Work Phone: 06-27-2015 tetanus toxoid, redu parth diphtheria toxoid, and acellular pertussis vaccine, adsorbed Jorge Lucio DO Work Phone: [facility] [place] 250 DO Work Phone: 08-10-2013 zoster vaccine, live Jorge Lucio DO Work Phone: [facility] [place] [address] DO Work Phone: 08-10-2013 zoster vaccine, unspecified formulation [facility] 08-08-2013 influenza, seasonal, injectable Jorge Lucio DO Work Phone: [facility]-[place] 250 DO Work Phone: 01-21-2009 hepatitis A and hepatitis B vaccine Jorge Lucio DO Work Phone: [facility] 05-21-2008 hepatitis A and hepatitis B vaccine Jorge Lucio DO Work Phone: [facility] 04-03-2008 hepatitis A and hepatitis B vaccine Jorge Lucio DO Work Phone: [facility] Payers Date Payer Category Payer Self-pay [id number] 2020 Miscellaneous or Other [facility] [id number] 5 2020 Private Health Insurance [id number] .[id number] 5 2020 Unknown [id number] 2020 Unknown [id number] 2020 Medicare [id number] .[id number] 1959 Medicare [id number] 2.16.840.1.362608.19 1959 Unknown [id number] 2.16.840.1.592479.19 1954 Unknown [id number] 2.16.840.1.458263.3.579 .2.593 1954 Unknown [id number] 2.16.840.1.063229.3.579 .2.593 1954 Unknown [id number] 2.16.840.1.488284.3.579 .2.593 1954 Unknown [id number] 2.16.840.1.222306.3.579 .2.1068 1954 Unknown [id number] 2.16.840.1.315656.3.579 .2.356 1954 Unknown [id number] 2.16.840.1.361222.3.579 .2.356 1954 Unknown [id number] 2.16.840.1.465589.3.579 .2.356 1954 Unknown [id number] 2.16.840.1.277972.3.579 .2.356 1954 Unknown [id number] 2.16.840.1.281517.3.579 .2.356 1954 Unknown [id number] 2.16.840.1.076675.3.579 .2.1246 1954 Unknown [id number] 2.16.840.1.555919.3.579 .2.1246 1954 Unknown [id number] 2.16.840.1.736638.3.579 .2.1246 1954 Unknown [id number] 2.16.840.1.195203.3.579 .2.1246 1954 Unknown [id number] 2.16.840.1.856822.3.579 .2.1246 1954 Unknown [id number] 2.16.840.1.883334.3.579 .2.1259 1954 Unknown [id number] 2.16.840.1.379392.3.579 .2.1259 1954 Unknown [id number] 2.16.840.1.162480.3.579 .2.1258 1954 Unknown [id number] 2.16.840.1.434470.3.579 .2.1258 1954 Unknown [id number] 2.16.840.1.148132.3.579 .2.1258 1954 Unknown [id number] 2.16.840.1.800041.3.579 .2.1258 1954 Unknown [id number] 2.16.840.1.088914.3.579 .2.1258 1954 Unknown [id number] 2.16.840.1.925112.3.579 .2.1258 1954 Unknown [id number] 2.16.840.1.487604.3.579 .2.1258 1954 Unknown [id number] 2.16.840.1.074579.3.579 .2.1258 1954 Unknown [id number] 2.16.840.1.204789.3.579 .2.1258 1954 Unknown [id number] 2.16.840.1.114864.3.579 .2.1258 1954 Unknown [id number] 2.16.840.1.574117.3.579 .2.1258 1954 Unknown [id number] 2.16.840.1.564520.3.579 .2.1258 1954 Unknown [id number] 2.16.840.1.834384.3.579 .2.1258 1954 Unknown [id number] 2.16.840.1.243573.3.579 .2.1258 1954 Unknown [id number] 2.16.840.1.163185.3.579 .2.1258 1954 Unknown [id number] 2.16.840.1.018524.3.579 .2.1259 1954 Unknown [id number] 2.16.840.1.596865.3.579 .2.9 1954 Unknown [id number] 2.16.840.1.142320.3.579 .2.1259 1954 Unknown [id number] 2.16.840.1.010233.3.579 .2.1258 1954 Unknown [id number] 2.16.840.1.903065.3.579 .2.125 1954 Unknown [id number] 2.16.840.1.477217.3.579 .2.1258 1954 Unknown [id number] 2.840.1.320710.3.579 .2.1258 1954 Unknown [id number] 2.840.1.005925.3.579 .2.1258 1954 Unknown [id number] 2.16840.1.241682.3.579 .2.1243 1954 Unknown [id number] 2.840.1.649605.3.579 .2.1243 1954 Unknown [id number] 2.16840.1.667099.3.579 .2.1244 1954 Unknown [id number] 2.840.1.177085.3.579 .2.1244 1954 Unknown [id number] 2.840.1.212080.3.579 .2.1244 Unknown [facility] [facility] [id number] Unknown [id number] Unknown [id number] .[id number] Unknown [id number] .2.531 Unknown [id number] .[id number] Unknown [id number] Social History Date Type Detail Facility Start: 09-05-2023 End: 05-10-[address] [facility] [employer] Other Start: 03-02-2023 End: 01-30-2024 Tobacco smoking status NHIS Ex-smoker (finding) [facility] Start: 1955 Sex Assigned At Male F [facility] Start: 09-05-2023 End: 05-10-2025 Alcohol ingestion Alcohol ingestion -[facility] 250 DO Work Phone: Comment on above: 10oz wine daily; coffee 1 mug daily; quit 2007; Start: 11-01-2023 End: 11-01-2023 History of tobacco use Current smoker [facility] Work Phone: End: 10-03-2003 History of tobacco use Cigarette Smoker [facility] Work Phone: Start: 09-05-2023 End: 01-30-2024 Tobacco use and exposure Smokeless tobacco non-user [facility] Work Phone: Start: 09-05-2023 End: 05-10-2025 Alcohol intake Current drinker of alcohol (finding) [facility] Work Phone: Start: 1955 [facility] Start: 08-26-2023 End: 01-21-2025 Exposure to SARS-CoV-2 (event) Not sure [facility] Start: 10-22-2023 End: 04-16-2025 Tobacco smoking status NHIS Never smoked tobacco (finding) [facility] Start: 04-06-2023 Tobacco Comment Last smoked : > 10 years [facility] Start: 04-06-2023 Alcohol Comment caffeine intak e : 1-2 cups per day [facility] Start: 02-25-2023 Housing Instability Unknown [facility] Start: 12-24-2024 End: 03-11-2025 Sex Male (finding) [facility] Start: 04-16-2025 SDOH Follow up SDOH Follow up [facility] Work Phone: Goals Date Patient Goal Desired Activity /State Functional Status Date Assessment Result Facility 04-17-2025 Functional status Patient at Baseline [facility] Work Phone: 12-25-2024 Functional status Patient at Baseline [facility] Work Phone: 03-02-2023 Functional status Patient at Baseline [facility] Work Phone: 02-25-2023 Functional status Patient at Baseline [facility] Work Phone: 02-24-2023 Functional status Disability Sta tus Patient at Baseline [facility] Work Phone: Mental Status Date Assessment Result Facility 04-17-2025 Cognitive function Cognitive Sta tus Patient at Baseline [facility] Work Phone: 12-25-2024 Cognitive function Cognitive Sta tus Patient at Baseline [facility] Work Phone: 03-02-2023 Cognitive function Cognitive Sta tus Patient at Baseline [facility] Work Phone: 02-25-2023 Cognitive function Cognitive Sta tus Patient at Baseline [facility] Work Phone: Clinical Notes 2019 to 05-10-2025 Assessment & Plan Note - FREDIS Flowers - 05/10/2025 4:28 PM EDTAssessment & Plan Note - FREDIS Flowers - 05/10/2025 4:28 PM EDTPatient Instructions Note Date & Type Note Facility 05-10-2025 Evaluation + Plan note Associated Problem(s): Obstructive sleep apnea syndrome Not able to tolerate CPAP [facility] Work Phone: 05-10-2025 Miscellaneous Notes Associated Problem(s): Obstructive sleep apnea syndrome Not able to tolerate CPAP documented in this encounter [facility] Work Phone: 05-10-2025 History of Presen t [...] is cooperative. ALLERGIES: Nsaids (non-steroidal anti-inflammatory drug), Tfwrdio-suw-shd reductase inhibitors, and Spironolactone Current Outpatient Medications [...] capsule, Daily Assessment: Plan: Karlo Aldridge MSN, BUTTON GRADER-DINKEY LOCOMOTIVE ENGINEER, PMHNP-[facility] [place], [place] Please excuse any errors in grammar or translation related to this dictation. Voice recognition software was utilized to prepare this document. documented in this encounter [facility] Work Phone: 05-10-2025 Instructions FREDIS Flowers - [...] Neal 8 weeks documented in this encounter [facility] Work Phone: 04-22-2025 History of Presen t [...] go directly there. documented in this encounter [facility] 04-17-2025 Progress note Note Date/Time April 17, 2025 3:40pm [facility] [address] [place] [address] Hospitalist Progress Note Signed Patient: Vick Mercado MR#: [id number] : 1955 Acct:[id number] Age/Sex: 70 / M Adm Date: 5 Loc: Room: [address] [place] [address] Type: ADM IN Attending Dr: Adonay Mai [...] (Glucocorticoids) Allergy (Severe, Verified 04/16/25 02:42) sensitivty Rmcpzgr-KQC-YkV Reductase Inhibitor Adverse Reaction (Mild, Verified 04/16/25 [...] here Documented By: Adonay Mai MD 04/17/25 1537 Signed By: <Electronically signed by Adonay Mai MD> 04/17/25 1547 [facility] Work Phone: 1(883) 989-755307-16-2025 [place] [id number] Cardiology Progress Note Signed Patient: Vick Mercado MR#: [id number] : 1955 Acct:[id number] Age/Sex: 70 / M Adm Date: 5 Loc: Room: [address] [place] [address] Type: ADM IN Attending Dr: Adonay Mai [...] (adult) (pediatric) Documented By: Kings Banegas MD, [facility] 2014 Signed By: 04/17/25 1659 [facility]07-16-2025 Discharge [place]ennifer [place] [id number] Discharge Summary Signed Patient: Vick Mercado MR#: [id number] : 1955 Acct:[id number] Age/Sex: 70 / M Adm Date: 5 Loc: Room: [address] [place] [address]: Adonay Mai MD Copies to: DO Adonay Crandall MD~ Providers Date of Discharge: 04/17/25 Discharging Provider: Adonay Mai Primary Care Provider: Jairo Corbin Consults: 04/16/25 00:40 Consult to Cardiology Routine Comment: Consulting Provider: [place] Reason For Exam: chf Has Provider Been [...] Mai MD 04/17/251554 Signed By: 04/17/25 1559 [facility]07-16-2025 [place] [address] Hospitalist Progress Note Signed Patient: Vick Mercado MR#: [id number] : 1955 Acct:[id number] Age/Sex: 70 / M Adm Date: 5 Loc: Room: [address] [place] [address] Type: ADM IN Attending Dr: Adonay Mai [...] (Glucocorticoids) Allergy (Severe, Verified 04/16/25 02:42) sensitivty Hljzeqp-DIM-TxI Reductase Inhibitor Adverse Reaction (Mild, Verified 04/16/25 [...] MD 04/17/25 1539 Signed By: 04/17/25 1540 [facility]07-15-2025 Consult note Author Kings Banegas [facility] Note Date/Time April 16, 2025 3:54 pm [facility] [address] [place] [address] Cardiology Consult Note Signed Patient: Vick Mercado MR#: [id number] : 1955 Acct:[id number] Age/Sex: 70 / M Adm Date: 5 Loc: Room: [address] [place] [address] Type: ADM IN Attending Dr: Adonay Mai [...] of what is covered above was unremarkable [facility] Medical History (Updated 04/16/25 @ 01:16 by [...] (Glucocorticoids) Allergy (Severe, Verified 04/16/25 02:42) sensitivty Qnhrqca-NSY-YvN Reductase Inhibitor Adverse Reaction (Mild, Verified 04/16/25 [...] x10E3/uL Lymph # (Auto) 2.5 (1.00-4.8) x10E3/uL [place] # (Auto) 1.0 H (0.0-0.8) x10E3/uL Eos [...] (adult) (pediatric) Documented By: Kings Banegas MD, [facility] 5 1541 Signed By: <Electronically signed by MD DUANE Banegas> 04/16/25 1554 [facility] Work Phone: 1(144) 759-673907-15-2025 Progress note Author Adonay Mai [facility] Note Date/Time April 16, 2025 3:01 pm [facility] [address] [place] [address] Hospitalist Progress Note Signed Patient: Vick Mercado MR#: [id number] : 1955 Acct:[id number] Age/Sex: 70 / M Adm Date: 5 Loc: Room: [address] [place] [address] Type: ADM IN Attending Dr: Adonay Mai [...] (Glucocorticoids) Allergy (Severe, Verified 04/16/25 02:42) sensitivty Asdssvw-RTO-HtW Reductase Inhibitor Adverse Reaction (Mild, Verified 04/16/25 [...] here Documented By: Adonay Mai MD 04/16/25 6623 Signed By: <Electronically signed by Adonay Mai MD> 04/16/25 1504 [facility] Work Phone: 1(926) 246-868607-15-2025 [place] [address] Cardiology Consult Note Signed Patient: Vick Mercado MR#: [id number] : 1955 Acct:[id number] Age/Sex: 70 / M Adm Date: 5 Loc: Room: [address] [place] [address] Type: ADM IN Attending Dr: Adonay Mai [...] of what is covered above was unremarkable [facility] Medical History (Updated 04/16/25 @ 01:16 by [...] (Glucocorticoids) Allergy (Severe, Verified 04/16/25 02:42) sensitivty Iprubxh-FIB-XrC Reductase Inhibitor Adverse Reaction (Mild, Verified 04/16/25 [...] x10E3/uL Lymph # (Auto) 2.5 (1.00-4.8) x10E3/uL [place] # (Auto) 1.0 H (0.0-0.8) x10E3/uL Eos [...] (adult) (pediatric) Documented By: Kings Banegas MD, [facility] 5 2380 Signed By: 04/16/25 1554 [facility]07-15-2025 [place] [id number] Hospitalist Progress Note Signed Patient: Vick Mercado MR#: [id number] : 1955 Acct:[id number] Age/Sex: 70 / M Adm Date: 5 Loc: 3T Room: [address] [place] [address] Type: ADM IN Attending Dr: Adonay Mai [...] (Glucocorticoids) Allergy (Severe, Verified 04/16/25 02:42) sensitivty Gqtlfto-SJN-SbX Reductase Inhibitor Adverse Reaction (Mild, Verified 04/16/25 [...] MD 04/16/25 1447 Signed By: 04/16/25 1501 [facility]07-15-2025 History and physical note Author Mirna Aldridge [facility] Note Date/Time April 16, 2025 6:26 am [facility] [address] [place] [address] Hospitalist H&P Signed Patient: Vick Mercado MR#: [id number] : 1955 Acct:[id number] Age/Sex: 70 / M Adm Date: 5 Loc: Room: [address] [place] [address] Type: ADM INOo Attending Dr: Ziggy Evans MD Copies to: DO Ziggy Crandall MD Paula G Smith, BUTTON GRADER~ HPI DATE OF EXAMINATION: 04/15/25 CHIEF COMPLAINT: [...] will be admitted as observation to the [facility] telemetry floor. Review of Systems Review of Systems Review of systems: A 10 point review of systems was obtained, negative unless noted in the HPI or below. [facility] Medical History (Updated 04/16/25 @ 01:16 by [...] urinary tract symptoms Elevated cholesterol Nonischemic cardiomyopathy [facility] w/o obstructive coronary disease - 01/2023 Atrial [...] (Glucocorticoids) Allergy (Severe, Verified 03/22/25 13:12) sensitivty Tfeqwhw-YAZ-CqW Reductase Inhibitor Adverse Reaction (Mild, Verified 03/22/25 [...] % (Auto) 22.7 % (.) 04/15/25 19:02 [place] % (Auto) 8.7 % (.) 04/15/25 19:02 Eos % (Auto) 2.8 % (.) 04/15/25 19:02 Baso % (Auto) 0.7 % (.) 04/15/25 19:02 Nucleat RBC Rel Count 0.1 /100 WBC (0-0.5) 04/15/25 19:02 Neut # (Auto) 7.2 x10E3/uL (1.8-7.7) 04/15/25 19:02 Lymph # (Auto) 2.5 x10E3/uL (1.00-4.8) 04/15/25 19:02 [place] # (Auto) 1.0 x10E3/uL (0.0-0.8) H 04/15/25 [...] <Electronically signed by Ziggy Evans MD> 04/16/25 0603 [facility] Work Phone: 1(648) 457-979907-15-2025 [place] [address] Hospitalist H&P Signed Patient: Vick Mercado MR#: [id number] : 1955 Acct:[id number] Age/Sex: 70 / M Adm Date: 5 Loc: Room: [address] [place] [address] Type: ADM INOo Attending Dr: Ziggy Evans MD Copies to: DO Ziggy Crandall MD Paula G Smith, APRN~ HPI DATE [...] will be admitted as observation to the [facility] telemetry floor. Review of Systems Review of Systems Review of systems: A 10 point review of systems was obtained, negative unless noted in the HPI or below. [facility] Medical History (Updated 04/16/25 @ 01:16 by [...] (Glucocorticoids) Allergy (Severe, Verified 03/22/25 13:12) sensitivty Ydbfzwe-EIH-JnD Reductase Inhibitor Adverse Reaction (Mild, Verified 03/22/25 [...] % (Auto) 22.7 % (.) 04/15/25 19:02 [place] % (Auto) 8.7 % (.) 04/15/25 19:02 Eos % (Auto) 2.8 % (.) 04/15/25 19:02 Baso % (Auto) 0.7 % (.) 04/15/25 19:02 Nucleat RBC Rel Count 0.1 /100 WBC (0-0.5) 04/15/25 19:02 Neut # (Auto) 7.2 x10E3/uL (1.8-7.7) 04/15/25 19:02 Lymph # (Auto) 2.5 x10E3/uL (1.00-4.8) 04/15/25 19:02 [place] # (Auto) 1.0 x10E3/uL (0.0-0.8) H 04/15/25 [...] 2340 Signed By: 04/16/25 0120 04/16/25 0626 [facility]07-09-2025 Telephone encounter Note* Telephone Encounter - Ciara [...] his pcp for the congestion he has. [id number] History of Present illness Narrative* Jairo Wild [...] him back as needed documented in this encounterWashington [facility] Medical CenterPgkuuoiajg45-56-5824 Evaluation note* Diagnosis Onset Date Resolution Status [...] 11:18pm Sleep apnea acute April 15 11:18pm [facility] Work Phone: 1(352) 255-735806-09-2025 Evaluation note* Diagnosis Onset Date Resolution Status [...] 11:12am Sleep apnea acute April 16 11:12am [facility] Work Phone: 1(373) 303-796106-09-2025 Evaluation note* Diagnosis Onset Date Resolution Status [...] ejection fraction) noneactive May 01, 2025 3:55pm [facility] Work Phone: 1(354) 468-131705-21-2025 History of Present illness Narrative* Jairo Wild, [...] in the near future. documented in this encounterWashington University Medical CenterJnlugqzahi40-15-6679 History of Present illness Narrative* Mary Neal [...] was mildly elevated, patient was transferred from [facility] to [facility] for asymptomatic troponin elevation. The left leg swelling occurred after a 40-hour car ride from [place] to [place] and then [place] back to [place]. Also underwent workup for DVT and pulmonary [...] 2023 class IV January 2023 presented to [facility] Cardiac cath: LVEF 20% LVEDP was [...] being measured enrolled in Coumadin clinic at [place]. Echocardiogram January 2023-LVEF 40 to 45% moderate [...] healthy lifestyle choices on overall cardiovascular health. [facility] current use of 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 therapy CHADS VASc [...] 1 mg tablet Take as directed by [facility] zinc acetate 25 mg (zinc) [...] Body mass index (BMI) 30.0-30.9, adult 9. [facility] current use of 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 therapy Clinical Decision [...] Allergen Reactions Nsaids (Non-Steroidal Anti-Inflammatory Drug) Unknown Qmmhvbp-Rgx-Twa Reductase Inhibitors Unknown Spironolactone Other Breast pain/enlargement [facility]: 1(765) 385-105204-21-2025 Instructions* Patient Instructions* Chioma Sewell LPN - [...] Provided instructions on exercise. [facility] Work Phone: 1(160) 716-774504-09-2025 Telephone encounter Note* Telephone Encounter - Oma [...] eye out for referral and I'd contact. [facility] CenterNrqkhbpjko48-08-0042 Miscellaneous Notes* Telephone Encounter - Oma Dixon [...] He said when he had gone to [place] re: ankle he was told he was [...] a called needing him to be in [place] this morning for some tests to be ran. I had confirmed his PT w/ him yesterday, and dealing being his last scheduled he said he'll contact us when he's able to rs if needed. documented in this encounterWashington University Medical CenterMcjyabezih34-28-0153 Miscellaneous Notes* Telephone Encounter - January - [...] the congestion he has. documented in this encounterWashington University Medical CenterIghbpradax24-40-9609 History of Present illness Narrative* Jairo Wild, [...] e/o lipoma lower back LITHOTRIPSY MOUTH SURGERY [place] REPAIR BLEED LIVER/SUTURE WOUND ruptured liver repair [...] He was then never cleared by his printing pressman. He now returns cleared by Cardiology, no [...] has consented to proceed. documented in this encounterWashington University Medical CenterYtlzuepizx37-88-5432 Telephone encounter Note* Telephone Encounter - Oma Dixon - 12/31/2024 2:53 PM EDT Spoke to Vick to check his status. He said when he had gone to [place] re: ankle he was told he was [...] over the phone01/08 would work out better. [facility] CenterMvosoyhare04-82-5162 [place] [address] Cardiology Consult Note Signed Patient: Vick Mercado MR#: [id number] : 1955 Acct:[id number] Age/Sex: 69 / M Adm Date: 5 Loc: Room: [address] [place] [address] Type: ADM INOo Attending Dr: Rohan Ascencio MD Copies to: DO Rohan Crandall MD W Bonilla Lucio DO~ Cardiology HPI History of Present Illness Consult Date: 12/25/24 Reason for Consult: Troponin elevation HPI: Mr. Mercado is a 69 year old male seen in cardiology consultation at request of hospitalist and patient was transferred from [place] to [facility] forasymptomatic troponin elevation. Patient had returned from [place] after a 40-[place] car ride from [place] back to visit his granddaughter. Ankle was strained due to abnormal posture in the car during theentire carride, with subsequent swelling and pain. Patient went to [place] emergency room to have this further investigated, [...] simply a panel laboratories routinely ordered by [facility] (no prespecified clinical cardiac illness upon initial [...] discharged home and follow-up with his general printing pressman no further testing is warranted; he does not warrant invasive assessment or testing; his functional class currently is class I/stage C based on his history of nonischemic cardiomyopathy that is now normalized. [facility] Medical History Localized swelling of left lower [...] (Glucocorticoids) Allergy (Severe, Verified 12/24/24 15:52) sensitivty Ubysnvc-DLN-ZdU Reductase Inhibitor Adverse Reaction (Mild, Verified 12/24/24 [...] x10E3/uL Lymph # (Auto) 1.5 (1.00-4.8) x10E3/uL [place] # (Auto) 1.4 H (0.0-0.8) x10E3/uL Eos [...] interpreted as documented below: (Outside ECG from [facility]) EKG results cardiology: WNL and sinus rhythm A&P - Cardiology (1) Elevated troponin: Code(s): R79.89 - Other specified abnormal findings of blood chemistry (2) Nonischemic cardiomyopathy: Code(s): I42.8 - Other cardiomyopathies Plan See above Documented By: Papo Lucio DO 12/25/241746 Signed By: 12/25/241756 [facility]03-25-2025 Consult note Author Papo Lucio [facility] Note Date/Time December 25, 2024 5:5 7pm [facility] [address] [place] [address] Cardiology Consult Note Signed Patient: Vick Mercado MR#: [id number] : 1955 Acct:[id number] Age/Sex: 69 / M Adm Date: 5 Loc: Room: [address] [place] [address] Type: ADM INOo Attending Dr: Rohan Ascencio MD Copies to: DO Rohan Crandall MD W Scott Sheldon, DO~ Cardiology HPI History of Present Illness Consult Date: 12/25/24 Reason for Consult: Troponin elevation HPI: Mr. Mercado is a 69 year old male seen in cardiology consultation at request of hospitalist and patient was transferred from [place] to [facility] forasymptomatic troponin elevation. Patient had returned from [place] after a 40-[place] car ride from [place] back to visit his granddaughter. Ankle was strained due to abnormal posture in the car during theentire car ride, with subsequent swelling and pain. Patient went to [place] emergency room to have this further investigated, [...] simply a panel laboratories routinely ordered by [facility] (no prespecified clinical cardiac illness upon initial [...] discharged home and follow-up with his general printing pressman no further testing is warranted; he does not warrant invasive assessment or testing; his functional class currently is class I/stage C based on his history of nonischemic cardiomyopathy that is now normalized. [facility] Medical History Localized swelling of left lower [...] (Glucocorticoids) Allergy (Severe, Verified 12/24/24 15:52) sensitivty Jkabrgi-XDS-PjQ Reductase Inhibitor Adverse Reaction (Mild, Verified 12/24/24 [...] x10E3/uL Lymph # (Auto) 1.5 (1.00-4.8) x10E3/uL [place] # (Auto) 1.4 H (0.0-0.8) x10E3/uL Eos [...] interpreted as documented below: (Outside ECG from [facility]) EKG results cardiology: WNL and sinus rhythm A&P - Cardiology (1) Elevated troponin: Code(s): R79.89 - Other specified abnormal findings of blood chemistry (2) Nonischemic cardiomyopathy: Code(s): I42.8 - Other cardiomyopathies Plan See above Documented By: Papo Lucio DO 12/25/241746 Signed By: <Electronically signed by Papo Lucio DO> 12/25/241756 [facility] Work Phone: 1(365) 303-608703-25-2025 Telephone encounter Note* Telephone Encounter - Oma Dixon - 12/25/2024 8:00 AM EDT He had called and lm noting that over their trip he had injured his ankle and received a called needing him to be in [place] this morning for some tests to be ran. I had confirmed his PT w/ him yesterday, and dealing being his last scheduled he said he'll contact us when he's able to rs if needed. [facility] [id number] History and physical note Author Mirna Aldridge [facility] Note Date/Time December 25, 2024 4:1 4am [facility] [address] [place] [address] Hospitalist H&P Signed Patient: Vick Mercado MR#: [id number] : 1955 Acct:[id number] Age/Sex: 69 / M Adm Date: 5 Loc: Room: [address] [place] [address] Type: ADM INOo Attending Dr: Jorge Arango MD Copies to: MD Jairo Byrd,DO Mirna Aldridge, BUTTON GRADER~ HPI DATE OF EXAMINATION: 12/25/24 CHIEF COMPLAINT: left ankle swelling HISTORY OF PRESENT ILLNESS: Attending note: I saw the patient personally on the day of encounter. I reviewed the relevant history, and performed the marie elements of the physical examination. I reviewedthe relevant laboratory workup, radiological studies and the current treatment plan. I formulated the plan of care and confirmed it with the resident/student/[employer]. Mr. Mercado is a 69-year-old male with a PMH of paroxysmal A-fib, nonischemiccardiomyopathy, chronic systolic heart failure?last EF 30-35%, JANETTE on CPAP, HTN the presented to the [facility] emergency room for left ankle swelling. Patient states that he had gotten his leg stuck in a car and had twisted it lastThday. States that the pain and swelling is gradually gotten worse since then. He also reports a recent trip to [place], Tuesday morning they drove to [place] and spent 3 nights there, drove home on , states altogether he was in the car about 30 to 40 hours. States he has tried ice, compression socks, compression sleeve and even rubs some Mobile oil on his ankle without success. States [...] week. States that on the trip to [place] he put his warfarin and his pill minder every other day so he had some of his warfarin just not therapeutic dose. He states he quit smoking over 20 years ago, drinks wine nightly, denies illicit drug use. [facility] chart review?venous Doppler of the left lower [...] ER physician. He was transferred here to [facility] as inpatient to the med/surg tele floor. Review of Systems Review of Systems Review of systems: A 10 point review of systems was obtained, negative unless noted in the HPI or below. [facility] Medical History Localized swelling of left lower [...] the [place] w/in past 28 days: Yes [facility] Travel Destination/s Comment: [facility] Medications and Allergies Allergies Corticosteroids (Glucocorticoids) Allergy (Severe, Verified 12/24/24 15:52) sensitivty [place]mbq[place]-CVC-LdB Reductase Inhibitor Adverse Reaction (Mild, Verified 12/24/24 [...] signed by Jorge Arango MD> 12/25/24 0414 [facility] Work Phone: 1(276) 655-693103-25-2025 [place] [address] Hospitalist H&P Signed Patient: Vick Mercado MR#: [id number] : 1955 Acct:[id number] Age/Sex: 69 / M Adm Date: 5 Loc: Room: [address] [place] [address] Type: ADM INOo Attending Dr: Jorge Arango [...] care and confirmed it with the re sident/student/[employer]. Mr. Mercado is a 69-year-old male with a PMH of paroxysmal A-fib, nonischemiccardiomyopathy, chronic systolic heart failure?last EF 30-35%, JANETTE on CPAP, HTN the presented to the [facility] emergency room for left ankle swelling. Patient states that he had gotten his leg stuck in a car andhad twisted it last. States that the pain and swelling is gradually gotten worse since then. He also reports a recent trip to [place], Tuesday morning they drove to [place] and spent 3 nights there, drove home on , states altogether he was in the car about 30 to 40 hours. States hehas tried ice, compression socks, compression sleeve and even rubs some Mobile oil on his ankle without success. States [...] week. States that on the trip to [place] he put his warfarin and his pill minder every other day so he had some of his warfarin just not therapeutic dose. He states he quit smoking over 20 years ago, drinks wine nightly, denies illicit drug use. [facility] chart review?venous Doppler of the left lower [...] ER physician. He was transferred here to [facility] as inpatient to the med/surg tele floor. Review of Systems Review of Systems Review of systems: A 10 point review of systems was obtained, negative unless noted in the HPI or below. [facility] Medical History Localized swelling of left lower [...] of wine nightly Recent travel in the [facility] w/in past 28 days: Yes [place] Travel Destination/s Comment: [facility] Medications and Allergies Allergies Corticosteroids (Glucocorticoids) Allergy (Severe, Verified 12/24/24 15:52) sensitivty Stakovp-MIQ-TeY Reductase Inhibitor Adverse Reaction (Mild, Verified 12/24/24 [...] 0154 Signed By: 12/25/24 0224 12/25/24 0414 [facility]03-24-2025 Evaluation note* Diagnosis Onset Date Resolution Status [...] 12:48am Paroxysmal A-fib acute December 252024 12:48am [facility] Work Phone: 1(554) 836-546603-24-2025 Evaluation note* Diagnosis Onset Date Resolution Status [...] 12:48am Paroxysmal A-fib inactive December 252024 12:48am [facility] Work Phone: 1([phone]) 255-811903-24-2025 Evaluation note* Diagnosis Onset Date Resolution Status [...] sleep apnea) acute March 11, 2025 3:33pm [facility] Work Phone: [phone]) 690-394203-03-2025 Telephone encounter Note* Telephone Encounter - Oma Dixon - 12/03/2024 12:40 PM EST Called him back to offer rs. With his schedule filling up he requested a week out and he will have PT 12/10/24 w/ Edwin Sy PTA. NOMS [id number] Miscellaneous Notes* Telephone Encounter - Oma Dixon - 12/03/2024 12:40 PM EST Called him back to offer rs. With his schedule filling up he requested a week out and he will have PT 12/10/24 w/ Edwin Sy PTA. * Telephone Encounter - Oma Dixon - 11/28/2024 10:14 AM EST Contacted regarding missed PT @ 10 today. He said he was heading to [place] for appt in assisted living for father; he noted he had attempted to cx. I noted today was last scheduled and offeredtomorrow; but he said post appt for father he'll contact to rs. documented in this encounterWashington University Medical [id number] History of Present illness Narrative* Mary Neal [...] 2023 class IV January 2023 presented to [facility] Cardiac cath: LVEF 20% LVEDP was [...] being measured enrolled in Coumadin clinic at [place]. Echocardiogram January 2023-LVEF 40 to 45% moderate [...] healthy lifestyle choices on overall cardiovascular health. FPC current use of 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 therapy CHADS VASc [...] 1 mg tablet Take as directed by [place] [facility] zinc acetate 25 mg (zinc) capsule 1 capsule, Daily Allergies Allergen Reactions Nsaids (Non-Steroidal Anti-Inflammatory Drug) Unknown Uqaaedu-Urv-Qmx Reductase Inhibitors Unknown Spironolactone Other Breast pain/enlargement [...] class 2 09/29/2023 Medication course changed 09/29/2023 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 09/07/2023 Persistent [...] coat syndrome with diagnosis of hypertension 8. 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 9. Obstructive [...] exam, discussion and plan. documented in this [facility] Work Phone: 1([phone]) 613-807902-28-2025 Instructions* Patient Instructions* Adele Sampson LPN - [...] surgery-lead by coumadin clinic. [facility] Work Phone: [phone]) 346-306002-26-2025 Telephone encounter Note* Telephone Encounter - Oma Dixon - 11/28/2024 10:14 AM EST Contacted regarding missed PT @ 10 today. He said he was heading to [place] for appt in assisted living for father; he noted he had attempted to cx. I noted today was last scheduled and offeredtomorrow; but he said post appt for father he'll contact to rs. NOMS [id number] History of Present illness Narrative* Mao Jesus, [...] to be instructed in home exercise program. [employer] Goals: To be met in 10 weeks [...] Please sign below. Date: documented in this encounterWashington University Medical [id number] History of Present illness Narrative* Mao Jesus, [...] to be instructed in home exercise program. [employer] Goals: To be met in 10 weeks [...] Please sign below. Date: documented in this encounterWashington University Medical CenterOugtegppsu08-05-7296 History of Present illness Narrative* Mao Jesus, [...] to be instructed in home exercise program. [employer] Goals: To be met in 10 weeks [...] Please sign below. Date: documented in this encounterWashington University Medical CenterMxdrguztif59-91-5435 History of Present illness Narrative* Mao Jesus, [...] to be instructed in home exercise program. [employer] Goals: To be met in 10 weeks [...] Please sign below. Date: documented in this encounterWashington University Medical [id number] History of Present illness Narrative* Mao Jesus, [...] to be instructed in home exercise program. Senior Living Goals: To be met in 10 weeks [...] Please sign below. Date: documented in this encounterWashington University Medical [id number] History of Present illness Narrative* Mao Jesus, [...] to be instructed in home exercise program. Senior Living Goals: To be met in 10 weeks [...] Please sign below. Date: documented in this encounterWashington University Medical CenterBdmauyfvvy14-66-1428 History of Present illness Narrative* Mao Jesus, [...] to be instructed in home exercise program. [employer] Goals: To be met in 10 weeks [...] Please sign below. Date: documented in this encounterWashington University Medical [id number] History of Present illness Narrative* Mao Jesus, [...] to be instructed in home exercise program. [employer] Goals: To be met in 10 weeks [...] Please sign below. Date: documented in this encounterWashington University Medical CenterPhhltliprw05-41-7143 History of Present illness Narrative* Mary Neal [...] CVAtype symptoms or bleeding diathesis Seen by Karlo Aldridge 4 months ago. Echo laboratory data ordered. History so Far : COVID infection with respiratory symptoms December 2022 Systolic congestive heart failure January 2023 class IV January 2023 presented to [facility] Cardiac cath: LVEF 20% LVEDP was [...] being measured enrolled in Coumadin clinic at [place]. Most recent INR 3.0, warfarin dose will [...] healthy lifestyle choices on overall cardiovascular health. 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 CHADS VASc [...] 1 mg tablet Take as directed by [facility] zinc acetate 25 mg (zinc) capsule 1 capsule, Daily Allergies Allergen Reactions Nsaids (Non-Steroidal Anti-Inflammatory Drug) Unknown Tmafzzi-Cmb-Hfi Reductase Inhibitors Unknown LABS: Laboratory data July 2024-hemoglobin 14.1 hematocrit 41, platelets 2 90,000 Patient Active Problem List Diagnosis Date Noted Pre-operative examination 01/30/2024 BMI 31.0-31.9,adult 01/30/2024 Sinus bradycardia 01/30/2024 Hospital discharge follow-up 11/10/2023 Personal history of COVID-19 09/29/2023 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 congestive heart failure, NYHA class 2 09/29/2023 Medication course changed 09/29/2023 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 Non-ischemic cardiomyopathy (Multi) Follow Up In Cardiology 2. Persistent atrial fibrillation (Multi) 3. Hypertension, benign 4. 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 congestive heart failure, NYHA class 2 5. FPC current use of 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 therapy 6. BMI 31.0-31.9,adult 7. Former smoker 8. Lipid screening At this point, we can try discontinuing the furosemide. Currently takes it once a day. No evidence of volume overload. 6-month follow-up 2-week [facility] prior to next visit. ? Discontinue anticoagulation-will [...] of Mary Neal MD. documented in this [facility] Work Phone: [phone]) 125-366410-28-2024 Instructions* Patient Instructions* Chioma Sewell LPN - [...] instructions on dietary changes. documented in this [facility] Work Phone: 1(343) 978-401109-20-2024 [facility]24 History of Present illness Narrative* Mary Neal [...] 2023 class IV January 2023 presented to [facility] Cardiac cath: LVEF 20% LVEDP was [...] being measured enrolled in Coumadin clinic at [place]. Most recent INR 3.0, warfarin dose will [...] healthy lifestyle choices on overall cardiovascular health. 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 CHADS VASc [...] 1 mg tablet Take as directed by [facility] [facility] warfarin (COUMADIN) 5 mg, oral, Every evening, Take as directed. zinc acetate 25 mg (zinc) capsule 1 capsule, oral, Daily Allergies Allergen Reactions Nsaids (Non-Steroidal Anti-Inflammatory Drug) Unknown Wmbppec-Fsk-Cll Reductase Inhibitors Unknown LABS: Reviewed PT and INR results CBC from October 2023. INR results have been labile. Patient Active Problem List Diagnosis Date Noted Pre-operative examination 01/30/2024 BMI 31.0-31.9,adult 01/30/2024 Sinus bradycardia 01/30/2024 Hospital discharge follow-up 11/10/2023 Personal history of COVID-19 09/29/2023 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 congestive heart failure, NYHA class 2 (Multi) 09/29/2023 Medication course changed 09/29/2023 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 09/07/2023 Persistent [...] BMI 31.0-31.9,adult 6. Coronary artery disease involving igiugig coronary artery of igiugig heart without angina pectoris 7. Sinus bradycardia [...] of Mary Neal MD. documented in this encounterL[facility] Work Phone: [phone]) 718-150004-29-2024 Instructions* Patient Instructions* Chioma Sewell LPN - [...] standpoint for dental procedure. documented in this encounterLima [facility] Work Phone: 1(751) 529-328702-08-2024 History of Present illness Narrative* Mary Neal [...] 2023 class IV January 2023 presented to [facility] Cardiac cath: LVEF 20% LVEDP was 25, [...] being measured enrolled in Coumadin clinic at [place]. Most recent INR 3.0, warfarin dose will [...] healthy lifestyle choices on overall cardiovascular health. 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 CHADS VASc [...] 1 mg tablet Take as directed by [facility] warfarin (COUMADIN) 5 mg, oral, Every evening, Take as directed. zinc acetate 25 mg (zinc) capsule 1 capsule, oral, Daily Allergies Allergen Reactions Nsaids (Non-Steroidal Anti-Inflammatory Drug) Unknown Vpnauwr-Ljd-Hgx Reductase Inhibitors Unknown LABS: Reviewed comprehensive profile and CBC pertaining to hospital stay. Patient Active Problem List Diagnosis Date Noted Hospital discharge follow-up 11/10/2023 Personal history of COVID-19 09/29/2023 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 congestive heart failure, NYHA class 2 (CMS/HCC) 09/29/2023 Medication course changed 09/29/2023 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 09/07/2023 Persistent atrial fibrillation (CMS/HCC) 09/05/2023 CAD (coronary artery disease) 06/22/2023 Former smoker 06/22/2023 Hypertension, benign 06/22/2023 Non-ischemic cardiomyopathy (CMS/HCC) 06/22/2023 Obstructive sleep apnea syndrome 06/22/2023 SOB (shortness of breath) 06/22/2023 Assessment: 1. Hospital discharge follow-up 2. Persistent atrial fibrillation (CMS/HCC) 3. 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 4. Non-ischemic cardiomyopathy (CMS/HCC) Follow Up In Cardiology 5. 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 congestive heart failure, NYHA class 2 (CMS/HCC) Follow Up In Cardiology 6. Coronary artery disease involving igiugig coronary artery of igiugig heart without angina pectoris 7. Hypertension, benign 8. Former smoker 9. First-degree AV block Clinical discussion: Patient developed acute on chronic systolic left heart failure and hypoxemic respiratory failure related to that, due to atrial fibrillation with rapid ventricular rate. Sustaining normal sinus rhythm and first-degree AV block OH interval today 226 ms Abnormal R wave [...] exam, discussion and plan. documented in this encounterLima [facility] Hospital Work Phone: 1([phone]) 179-262102-08-2024 Instructions* Patient Instructions* Nunu Graves CMA - [...] done in office today documented in this encounterLima [facility] Hospital Work Phone: [phone] 880-562812-28-2023 History of Present illness Narrative* Mary Neal MD - 09/29/2023 1:45 PM EST Patient is new to this provider. Previously seen by Dr. Lucio subsequently by Karlo Aldridge. Accompanied by to the office. is very helpful in coordination of care. Hard of hearing, however I was able to communicate quite well. 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 Previously had some perceived medication [...] and PT/INR today with Coumadin clinic in [place]. Denies any bleeding diathesis. Subjective : Patient [...] Allergen Reactions Nsaids (Non-Steroidal Anti-Inflammatory Drug) Unknown Xenfjlt-Hdt-Ixa Reductase Inhibitors Unknown LABS: Sodium 137 potassium 4.1 creatinine 0.78 GFR greater than 60 glucose 133 hemoglobin 14.4 [id number] platelets 235 Problem List: Patient Active Problem List Diagnosis Date Noted 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 09/07/2023 Paroxysmal [...] 2023 class [facility]: [facility] 20% LVEDP was 25, [...] being measured enrolled in Coumadin clinic at [place]. Most recent INR 3.0, warfarin dose will [...] healthy lifestyle choices on overall cardiovascular health. FPC current use of 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 therapy CHADS VASc [...] 2 (CMS/HCC) 5. Coronary artery disease involving igiugig coronary artery of igiugig heart without angina pectoris 6. SOB (shortness of breath) 7. Hypertension, benign 8. FPC current use of 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 therapy 9. Obstructive [...] Mary Neal MD FACC [facility] this [facility] Work Phone: [phone] Instructions* Patient Instructions* Katty Best LPN - [...] need weekly INR's for possible DCC, notify [place] [facility] documented in this encounterLima [facility] Work Phone: [phone] 436-184612-12-2023 Evaluation note* Encounter Date Diagnosis Assessment Notes Treatment Notes Treatment Clinical Notes Sep, Chronic HFrEF (heart failure with reduced ejection fraction) (ICD-10 - I50.22) [facility]: LVEF 20%, mild CAD - 01/2023 [...] are maintaining regular scheduled appts with their printing pressman. Discussed cardioversion following 4 wks of AC [...] index [BMI] 31.0-31.9, adult (ICD-10 - Z68.31) [facility] Other 12-09-2023 Evaluation note* Encounter Date Diagnosis Assessment Notes Treatment Notes Treatment Clinical Notes Sep, Lumbar spondylosis (ICD-10 - M47.816) [facility] Other 12-06-2023 Evaluation note* Encounter Date Diagnosis Assessment Notes Treatment Notes Treatment Clinical Notes Sep, Paroxysmal atrial fibrillation (ICD-10 - I48.0) [facility] Other 12-06-2023 Evaluation + Plan note* Assessment & Plan Note - FREDIS Flowers - 09/07/2023 9:51 AM ESTAssociated Problem(s): Obstructive sleep apnea syndrome Remains compliant with BiPAP [facility] Work Phone: [phone]) 913-640712-06-2023 Miscellaneous Notes* Assessment & Plan Note - FREDIS Flowers - 09/07/2023 9:51 AM ESTAssociated Problem(s): Obstructive sleep apnea syndrome Remains compliant with BiPAP * Assessment & Plan Note - FREDIS Flowers - 09/07/2023 9:50 AM EST Associated Problem(s): 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 CHADS VASc [...] Cardiac and Vasculature January 2023 presented to [facility] Cardiac cath: Normal coronaries, LVEF 20% January 2023 TTE LVEF 40 to 45% with hypokinesis of inferior lateral and basal apical documented in this encounterLima [facility] Hospital Work Phone: [phone] 531-466712-06-2023 Evaluation + Plan note* Assessment & Plan Note - FREDIS Flowers - 09/07/2023 9:50 AM ESTAssociated Problem(s): FPC current use of 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 therapy CHADS VASc 3 After lengthy discussion regarding the importance of cardioembolic protection he agrees to begin treatment with Xarelto 20 mg daily. CRCL: 116 Provided with samples today and patient assistance forms [facility] Work Phone: [phone] 112-408512-06-2023 Evaluation + Plan note* Assessment & Plan Note - FREDIS Flowers - 09/07/2023 9:47 AM ESTAssociated Problem(s): Class 1 obesity with body mass index (BMI) of 30.0 to 30.9 in adult Reviewed the merits of healthy lifestyle choices on overall cardiovascular health. [facility] Work Phone: [phone]) [phone] Evaluation + Plan note* Assessment & Plan [...] in office today afib at 97 bpm [facility] Work Phone: [phone]) 415-849812-06-2023 Evaluation + Plan note* Assessment & Plan [...] April 2023 but reports intolerance Narrow QRS [facility] Work Phone: [phone] 213-710712-06-2023 Evaluation + Plan note* Assessment & Plan Note - FREDIS Flowers - 09/07/2023 9:26 AM ESTAssociated Problem(s): Hypertension, benign optimal in office [facility] Work Phone: [phone] Evaluation + Plan note* Assessment & Plan Note - FREDIS Flowers - 09/07/2023 9:26 AM ESTAssociated Problem(s): Cardiac and Vasculature January 2023 presented to [facility] Cardiac cath: Normal coronaries, LVEF 20% January 2023 TTE LVEF 40 to 45% with hypokinesis of inferior lateral and basal apical [facility] Work Phone: [phone] History of Present illness Narrative* FREDIS Flowers [...] Behavior: Behavior is cooperative. Allergies Allergen Reactions Xubfkpx-Ukj-Jwt Reductase Inhibitors Unknown Current Outpatient Medications Medication [...] Cardiac and Vasculature January 2023 presented to [facility] Cardiac cath: Normal coronaries, LVEF 20% [...] healthy lifestyle choices on overall cardiovascular health. 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 CHADS VASc [...] Neal may consider cardioversion) Karlo Aldridge MSN, BUTTON GRADER-DINKEY LOCOMOTIVE ENGINEER, PMHNP-[facility] Please excuse any errors in grammar or translation related to this dictation. Voice recognition software was utilized to prepare this document. documented in this [facility] Work Phone: [phone] 658-835712-04-2023 Instructions* Patient Instructions* FREDIS Flowers - 09/05/2023 [...] Neal in 3 weeks documented in this encounterLima [facility] Hospital Work Phone: [phone] Evaluation note* Encounter Date Diagnosis Assessment Notes Treatment Notes Treatment Clinical Notes May, ASHD (arteriosclerot ic heart disease) (ICD-10 - I25.10) This patient is stable without activity related CP, dyspnea or lightheadedness. They are instructed to continue exercise and AHA diet plan. May, Chronic HFrEF (heart failure with reduced ejection fraction) (ICD-10 - I50.22) [facility]: LVEF 20%, mild CAD - 01/2023 [...] is aware of the benefits associated with JANETET: With continued use, the patient reduces the [...] They may safely use Tylenol as needed. [facility] Other 07-14-2023 Evaluation note* Encounter Date Diagnosis Assessment Notes Treatment Notes Treatment Clinical Notes Apr, Chronic HFrEF (heart failure with reduced ejection fraction) (ICD-10 - I50.22) [facility]: LVEF 20%, mild CAD - 01/2023 [facility] Other 07-11-2023 Evaluation note* Encounter Date Diagnosis Assessment Notes Treatment Notes Treatment Clinical Notes Apr, JANETTE (obstructive sleep apnea) (ICD-10 - G47.33) AHI 39, Psat 83% [facility] Other 06-04-2023 Evaluation note* Encounter Date Diagnosis Assessment Notes Treatment Notes Treatment Clinical Notes Mar, Primary hypertension (ICD-10 - I10) Mar, Cervical spondylosis (ICD-10 - M47.812) [facility] Other 06-04-2023 Evaluation note* Encounter Date Diagnosis Assessment Notes Treatment Notes Treatment Clinical Notes Mar, Cervical spondylosis (ICD-10 - M47.812) [facility] Other 05-31-2023 Discharge summary Author Papo Lucio [facility] March 02, 2023 3:18pm Note Date/Time March 02, 2023 3:16p m [facility] [address] [place] [address] Discharge Summary Signed Patient: Vick Mercado MR#: [id number] : 1955 Acct:[id number] Age/Sex: 67 / M Adm Date: 3 [...] Low-Cholesterol Additional Instructions: DISCHARGE INSTRUCTIONS FOR CARDIAC WATCH ENGINE OPERATOR PHONE NUMBER OF YOUR PHYSICIAN: [phone] PROCEDURE: Heart Cath The following instructions have [...] cold, numb, blue or white, call the printing pressman immediately. 4. ACTIVITY: You are advised to [...] bottle, follow the instructions on the bottle. [facility] is not responsible for incorrect prescription information [...] <Electronically signed by Papo Lucio DO> 03/02/231517 [facility] Work Phone: [phone]) [phone] Procedure noteKettering Health Troy05-31-2023 Evaluation note* Encounter Date Diagnosis Assessment Notes Treatment Notes Treatment Clinical Notes January, Nonischemic cardiomyopathy (ICD-10 - I42.8) January, Chronic HFrEF (heart failure with reduced ejection fraction) (ICD-10 - I50.22) [facility]: LVEF 20%, mild CAD - 01/2023 [facility] Other 05-30-2023 Evaluation note* Encounter Date Diagnosis [...] fever. Call if any of these develop [facility] Other 05-10-2023 Evaluation note* Encounter Date Diagnosis Assessment Notes Treatment Notes Treatment Clinical Notes January, Subacute maxillary sinusitis (ICD-10 - J01.00) [facility] Other 05-09-2023 Evaluation note* Encounter Date Diagnosis [...] PSA (prostate specific antigen) (ICD-10 - Z12.5) [facility] Other 03-15-2023 Evaluation note* Encounter Date Diagnosis [...] for congestion, Tylenol for pain and fever. [facility] Other 03-10-2023 Evaluation note* Encounter Date Diagnosis Assessment Notes Treatment Notes Treatment Clinical Notes Dec, Acute bronchitis due to other specified organisms (ICD-10 - J20.8) Instructed to use Robitussin or Mucinex for cough, saline or Flonase NS for congestion, Tylenol for pain and fever. Dec, Tachycardia (ICD-10 - R00.0) Avoid stimulants, caffiene and sudafed/ Hydrate Recommend ER evaluation w/ sustained tachycardia [facility] Other 02-25-2023 Evaluation note* Encounter Date Diagnosis Assessment Notes Treatment Notes Treatment Clinical Notes Nov, Lumbar spondylosis (ICD-10 - M47.816) [facility] Other 06-29-2019 History and physical note Author Praveen Song [facility] June 22, 2024 10:56am Note Date/Time June 22, 2024 10:56am [facility] [address] [place] [address] Gastroenterology H&P Signed Patient: Vick Mercado MR#: [id number] : 1955 Acct:[id number] Age/Sex: 69 / M Adm Date: 4 Loc: Room: Type: [facility] Attending Dr: Praveen Song MD Copies [...] signed by Praveen Song MD> 06/22/24 1056 [facility] Work Phone: Chief complaint+Reason for visit Narrative* Chief Complaint Deviated Septum, Sle ep Apnea New Referral sob Reason for Visit Acute on chronic sys tolic (congestive) 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 Atrial fibrillation with rapid ventricular response CHF (congestive heart failure) Cognitive decline Dental caries Hypertension Orthopnea Sleep apnea treated with nocturnal bilevel positive airway pressure (BPAP) [facility] Work Phone: Chief complaint+Reason for visit Narrative* Chief Complaint Deviated Septum, Sle ep Apnea New Referral Deviated Septum, Sleep Apnea sob [facility] [place] Reason for Visit CHF (congestive hear t failure) Dental caries Hypertension Sleep apnea treated with nocturnal bilevel positive airway pressure (BPAP) Acute on chronic systolic (congestive) 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 Atrial fibrillation with rapid ventricular response Orthopnea [facility] Work Phone: Discharge summary Author Adonay Mai [facility] Note Date/Time April 17, 2025 3:59 pm [facility] [address] [place] [address] Discharge Summary Signed Patient: Vick Mercado MR#: [id number] : 1955 Acct:[id number] Age/Sex: 70 / M Adm Date: 5 Loc: Room: [address] [place] [address]: Adonay Mai MD Copies to: DO Adonay Crandall MD~ Providers Date of Discharge: 04/17/25 Discharging Provider: Adonay Mai Primary Care Provider: Jairo Corbin Consults: 04/16/25 00:40 Consult to Cardiology Routine Comment: Consulting Provider: [facility] [employer], [facility] Reason For Exam: chf Has Provider [...] <Electronically signed by Adonay Mai MD> 04/17/25 5296 [facility] Work Phone: Evaluation noteNo InformationNort [employer] Other Evaluation note* Diagnosis Onset Date Resolution Status CHF (congestive heart failure) acute Dyspnea, paroxysmal nocturnal acute Orthopnea acute Sleep apnea treated with noc turnal bilevel positive airway pressure (BPAP) acute [facility] Work Phone: Evaluation noteNo assessment information available [facility] Work Phone: Evaluation note* Diagnosis Dilated cardiomyopathy (CMS/HCC)- Primary Other primary cardiomyopathies Paroxysmal atrial fibrillation (CMS/HCC) Atrial fibrillation Hypertension, benign Essential hypertension, benign Obstructive sleep apnea syndrome Obstructive sleep apnea (adult) (pediatric) Class 1 obesity due to excess calories with serious comorbidity and body mass index (BMI) of 30.0 to 30.9 in adult 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 documented in this encounter [facility] Work Phone: Evaluation note* Diagnosis Persistent atrial fibrillation (CMS/HCC) Atrial fibrillation Paroxysmal atrial fibrillation (CMS/HCC) Atrial fibrillation Non-ischemic cardiomyopathy (CMS/HCC) Other primary cardiomyopathies 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 congestive heart failure, NYHA class 2 (CMS/HCC) Coronary artery disease involving igiugig coronary artery of igiugig heart without angina pectoris SOB (shortness of breath) Shortness of breath Hypertension, benign Essential hypertension, benign 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 Obstructive sleep apnea syndrome Obstructive sleep apnea (adult) (pediatric) Former smoker Personal history of tobacco use, presenting hazards to health Obesity (BMI 30.0-34.9) Personal history of COVID-19 Dilated cardiomyopathy (CMS/HCC) Other primary cardiomyopathies Medication course changed documented in this encounter [facility] Work Phone: Evaluation note* Diagnosis Onset Date Resolution Status Acute on chronic systolic (congestive) 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 acute Atrial fibrillation with rapid ventricular response acute CHF (congestive heart failure) acute Cognitive decline acute Dental caries acute Hypertension acute Orthopnea acute Sleep apnea treated with noc turnal bilevel positive airway pressure (BPAP) acute [facility] Work Phone: Evaluation note* Diagnosis Hospital discharge follow-up Other follow-up examination Persistent atrial fibrillation (CMS/HCC) Atrial fibrillation 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 Non-ischemic cardiomyopathy (CMS/HCC) Other primary cardiomyopathies 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 congestive heart failure, NYHA class 2 (CMS/HCC) Coronary artery disease involving igiugig coronary artery of igiugig heart without angina pectoris Hypertension, benign Essential hypertension, benign Former smoker Personal history of tobacco use, presenting hazards to health documented in this encounter [facility] Work Phone: Evaluation note* Diagnosis Onset Date Resolution Status CHF (congestive heart failure) acute Dental caries acute Hypertension acute Sleep apnea treated with noc turnal bilevel positive airway pressure (BPAP) acute Acute on chronic systolic (congestive) 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 resolved Atrial fibrillation with rapid ventricular response resolved Orthopnea resolved [facility] Work Phone: Evaluation note* Diagnosis 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 congestive heart failure, NYHA class 2 (Multi) Persistent atrial fibrillation (Multi) Atrial fibrillation Pre-operative examination Unspecified pre-operative examination Former smoker Personal history of tobacco use, presenting hazards to health BMI 31.0-31.9,adult Coronary artery disease involving igiugig coronary artery of igiugig heart without angina pectoris Sinus bradycardia Other specified cardiac dysrhythmias Non-ischemic cardiomyopathy (Multi) Other primary cardiomyopathies Hypertension, benign Essential hypertension, benign documented in this encounter [facility] Work Phone: Evaluation note* Diagnosis Onset Date Resolution Status ASHD (arteriosclerotic heart disease) acute Atrial fibrillation acute Chronic HFrEF (heart failure with reduced ejection fraction) acute Elevated cholesterol acute Hypertension acute Nonischemic cardiomyopathy a cute JANETTE (obstructive sleep apnea) acute [facility] Work Phone: Evaluation note* Diagnosis 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 congestive heart failure, NYHA class 2 (Multi) Persistent atrial fibrillation (Multi) Atrial fibrillation Non-ischemic cardiomyopathy (Multi) Other primary cardiomyopathies documented in this encounter [facility] Work Phone: Evaluation note* Diagnosis Onset Date Resolution Status Atrial fibrillation acute Elevated cholesterol acute HALEY (generalized anxiety disorder) acute Heart failure with improved ejection fraction (HFimpEF) acute Hypertension acute Nonischemic cardiomyopathy a cute JAENTTE (obstructive sleep apnea) acute Medicare annual wellness visit, subsequent noneactive Screening PSA (prostate specific antigen) noneactive Screening for colon cancer n oneactive [facility] Work Phone: evaluation note* Diagnosis Onset [...] (HFimpEF) acute Hypertension acute Nonischemic cardiomyopathy a [facility] Work Phone: Evaluation note* Diagnosis Onset [...] (HFimpEF) acute Hypertension acute Nonischemic cardiomyopathy a [facility] Work Phone: Evaluation note* Diagnosis Dilated cardiomyopathy (Multi)- Primary Other primary cardiomyopathies Paroxysmal atrial fibrillation (Multi) Atrial fibrillation Hypertension, benign Essential hypertension, benign Obstructive sleep apnea syndrome Obstructive sleep apnea (adult) (pediatric) Class 1 obesity due to excess calories with serious comorbidity and body mass index (BMI) of 30.0 to 30.9 in adult [facility]PC current use of 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 therapy Non-ischemic cardiomyopathy (Multi) Other primary cardiomyopathies Persistent atrial fibrillation (Multi) Atrial fibrillation Hypertension, benign Essential hypertension, benign 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 congestive heart failure, NYHA class 2 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 BMI 31.0-31.9,adult Former smoker Personal history of tobacco use, presenting hazards to health Lipid screening Screening for lipoid disorders documented in this encounter [facility] Work Phone: Evaluation note* Diagnosis Cervical paraspinal muscle spasm- Primary Spasm of muscle documented in this encounter [facility] HealthcareEvaluation note* Diagnosis Cervical paraspinal muscle spasm- Primary Spasm of muscle documented in this encounter [facility] HealthcareEvaluation note* Diagnosis Cervical paraspinal muscle spasm- Primary Spasm of muscle documented in this encounter [facility] HealthcareEvaluation note* Diagnosis Cervical paraspinal muscle spasm- Primary Spasm of muscle documented in this encounter [facility] HealthcareEvaluation note* Diagnosis Cervical paraspinal muscle spasm- Primary Spasm of muscle documented in this encounter [facility] HealthcareEvaluation note* Diagnosis Cervical paraspinal muscle spasm- Primary Spasm of muscle documented in this encounter [facility] HealthcareEvaluation note* Diagnosis Dilated cardiomyopathy (Multi)- Primary Other primary cardiomyopathies Paroxysmal atrial fibrillation (Multi) Atrial fibrillation Hypertension, benign Essential hypertension, benign Obstructive sleep apnea syndrome Obstructive sleep apnea (adult) (pediatric) Class 1 obesity due to excess calories with serious comorbidity and body mass index (BMI) of 30.0 to 30.9 in adult 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 Pre-operative examination Unspecified pre-operative examination Medically noncompliant Medication course changed 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 congestive heart failure, NYHA class 2 Atrial fibrillation, currently in sinus rhythm Abnormal EKG Nonspecific abnormal electrocardiogram (ECG) (EKG) White coat syndrome with diagnosis of hypertension FPC current use of 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 therapy Obstructive sleep apnea syndrome Obstructive sleep apnea (adult) (pediatric) Non-ischemic cardiomyopathy (Multi) Other primary cardiomyopathies Former smoker Personal history of tobacco use, presenting hazards to health Body mass index (BMI) 30.0-30.9, adult documented in this encounter [facility] Work Phone: Evaluation note* Diagnosis Onset [...] sleep apnea) acute December 24, 2024 3:34pm [facility] Work Phone: Evaluation note* Diagnosis Nasal septal deviation- Primary Deviated nasal septum Hypertrophy of nasal turbinates JANETTE (obstructive sleep apnea) Obstructive sleep apnea (adult) (pediatric) Intolerance of continuous positive airway pressure (CPAP) ventilation documented in this encounter [facility] HealthcareEvaluation note* Diagnosis Dilated cardiomyopathy (Multi)- Primary Other primary cardiomyopathies Paroxysmal atrial fibrillation (Multi) Atrial fibrillation Hypertension, benign Essential hypertension, benign Obstructive sleep apnea syndrome Obstructive sleep apnea (adult) (pediatric) Class 1 obesity due to excess calories with serious comorbidity and body mass index (BMI) of 30.0 to 30.9 in adult 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 congestive heart failure, NYHA class 2 Non-ischemic cardiomyopathy (Multi) Other primary cardiomyopathies Medication course changed Hypertension, benign Essential hypertension, benign Atrial fibrillation, currently in sinus rhythm Medically noncompliant Former smoker Personal history of tobacco use, presenting hazards to health Body mass index (BMI) 30.0-30.9, adult 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 documented in this encounter [facility] Work Phone: Evaluation note* Diagnosis Status post nasal septoplasty- Primary Other postprocedural status Obstructive sleep apnea syndrome Obstructive sleep apnea (adult) (pediatric) documented in this encounter [facility] HealthcareEvaluation note* Diagnosis Status post nasal septoplasty- Primary Other postprocedural status documented in this encounter [facility] HealthcareEvaluation note* Diagnosis Status post nasal septoplasty- Primary Other postprocedural status Chronic congestive heart failure, unspecified heart failure type (HCC) documented in this encounter [facility] HealthcareEvaluation note* Diagnosis Dilated cardiomyopathy (Multi)- Primary Other primary cardiomyopathies Paroxysmal atrial fibrillation (Multi) Atrial fibrillation Hypertension, benign Essential hypertension, benign Obstructive sleep apnea syndrome Obstructive sleep apnea (adult) (pediatric) Class 1 obesity due to excess calories with serious comorbidity and body mass index (BMI) of 30.0 to 30.9 in adult FPC current use of 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 therapy Medically noncompliant- Primary Non-ischemic cardiomyopathy (Multi) Other primary cardiomyopathies Persistent atrial fibrillation (Multi) Atrial fibrillation FPC current use of 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 therapy Hypertension, benign Essential hypertension, benign Body mass index (BMI) 30.0-30.9, adult Obstructive sleep apnea syndrome Obstructive sleep apnea (adult) (pediatric) documented in this encounter [facility] Work Phone: History general Narrative - Reported* Type Description Date Medical History fusion c4 5 6 7 Medical History ruptured liver/ hep c Medical History gall bladder Medical History kidney stones Surgical History rotator cuff repair Surgical History broken jaw Surgical History amputated fingers Hospitalization History see above [employer] Other History general Narrative - Reported* Type Description Date Medical History fusion c4 5 6 7 Medical History ruptured liver/ hep c Medical History gall bladder Medical History kidney stones Medical History Nonischemic Cardiomyopathy Medical History HFrEF Surgical History rotator cuff repair Surgical History broken jaw Surgical History amputated fingers Surgical History [facility] 01/2023 Hospitalization History see above [employer] Other [employer] general Narrative - Reported* Type Description Date Medical History fusion c4 5 6 7 Medical History ruptured liver/ hep c Medical History gall bladder Medical History kidney stones Medical History Nonischemic Cardiomyopathy Medical History HFrEF Medical History JANETTE Surgical History rotator cuff repair Surgical History broken jaw Surgical History amputated fingers Surgical History [facility] 01/2023 Hospitalization History see above [employer] Other [employer] general Narrative - Reported* Type Description Date Medical History fusion c4 5 6 7 Medical History ruptured liver/ hep c Medical History gall bladder Medical History kidney stones Medical History Nonischemic Cardiomyopathy Medical History HFrEF Medical History JANETTE Surgical History rotator cuff repair Surgical History broken jaw Surgical History amputated fingers Surgical History [facility] 01/2023 Surgical History CHF 01/2023 Hospitalization History see above [employer] Other [employer] general Narrative - Reported* Type Description Date Medical History fusion c4 5 6 7 Medical History ruptured liver/ hep c Medical History gall bladder Medical History kidney stones Medical History Nonischemic Cardiomyopathy Medical History HFrEF Medical History JANETTE Medical History Atrial fibrillation Surgical History rotator cuff repair Surgical History broken jaw Surgical History amputated fingers Surgical History [facility] 01/2023 Surgical History CHF 01/2023 Hospitalization History see above [employer] Other History of Present illness Narrative* The [...] medication regimen. He denies medication side effects. [facility] 250 DO Work Phone: History of Present [...] medication regimen. He denies medication side effects. [facility] 600 DO Work Phone: Hospital Discharge instructions Additional Instructions DISCHARGE INSTRUCTIONS FOR CARDIAC WATCH ENGINE OPERATOR PHONE NUMBER OF YOUR PHYSICIAN: [phone] PROCEDURE: Heart Cath The following instructions have [...] cold, numb, blue or white, call the printing pressman immediately. 4. ACTIVITY: You are advised to [...] bottle, follow the instructions on the bottle. [facility] is not responsible for incorrect prescription information provided by the patient during their visit. Do not stop your medications without consulting your health care provider. Please take the list with you to your next doctor's appointment.[facility] Work Phone: Hospital Discharge instructions Additional Instructions Apply ice to left ankle as needed. Elevate left ankle as needed. Apple MATT wrap to left ankle as needed.[facility] Work Phone: InstructionsNot on filedocumented in this encounter [facility] Author Kings Banegas [facility] Note Date/Time April 17, 2025 4:59 pm [facility] [address] [place] [address] Cardiology Progress Note Signed Patient: Vick Mercado MR#: [id number] : 1955 Acct:[id number] Age/Sex: 70 / M Adm Date: 5 Loc: 3T Room: [address] [place] [address] Type: ADM IN Attending Dr: Adonay Mai [...] (adult) (pediatric) Documented By: Kings Banegas MD, [facility] 5 [id number] Signed By: <Electronically signed by MD DUANE Banegas> 04/17/25 1659 [facility] Work Phone: Reason for referral (narrative)* Consultation (Routine) - Authorized Specialty Diagnoses / Procedures Referred By Contac t Referred To Contact Cardiology Diagnoses Non-ischemic cardiomyopathy (CMS/HCC) 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 congestive heart failure, NYHA class 2 (CMS/HCC) Procedures Follow Up In Cardiology Mary Neal MD [address] [place] [id number] Mary Neal MD [address] [place] [id number] Referral ID Status Reason Start Date Expiration Date V isits Requested Visits Authorized [id number] Authorized 09/29/2023 09/28/2024 1 1 [facility] Work Phone: Reason for referral (narrative)* Consultation (Routine) - Authorized Specialty Diagnoses / Procedures Referred By Contac t Referred To Contact Cardiology Diagnoses 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 congestive heart failure, NYHA class 2 (CMS/HCC) Persistent atrial fibrillation (CMS/HCC) Procedures Follow Up In Cardiology Mary Neal MD [address] [facility] [address] [place] [address] Mary Neal MD [address] [facility] [address] [place] [address] Referral ID Status Reason Start Date Expiration Date V isits Requested Visits Authorized [id number] Authorized 11/10/2023 11/09/2024 1 1 [facility] Work Phone: Reason for referral (narrative)No reason for referral [facility] Work Phone: Reason for visit Narrative* Rehabilitation - Outpatient (Routine) - Authorized Specialty Diagnoses / Procedures Referred By Contac t Referred To Contact Physical Therapy Diagnoses Spondylolysis, cervical region Procedures [place] PHYSICAL THERAPY EVALUATION LOW COMPLEX 20 MINS [place] OFFICE/OUTPATIENT [facility] Jairo Corbin MD [address] [place] [address] Phone: tel: fax: [facility] [address] [address] Phone: tel: fax: Referral ID Status Reason Start Date Expiration Date V isits Requested Visits Authorized [id number] Authorized 09/06/2024 10/02/2024 30 30 [facility] HealthcareReason for visit Narrative* Rehabilitation - Outpatient (Routine) - Authorized Specialty Diagnoses / Procedures Referred By Contac t Referred To Contact Physical Therapy Diagnoses Spondylolysis, cervical region Procedures [place] THER PX 1/> AREAS EACH 15 MIN NEUROMUSC REEDUCA [place] THERAPEUTIC PX 1/> AREAS EACH 15 MIN EXERCISES [place] MANUAL THERAPY TQS 1/> REGIONS EACH 15 MINUTES PHYS/OCC THERAPY Jairo Corbin MD [address] [place] [address] Phone: tel: fax: [facility] [address] [address] Phone: tel: fax: Referral ID Status Reason Start Date Expiration Date V isits Requested Visits Authorized [id number] Authorized 10/03/2024 11/03/2024 30 30 [facility] HealthcareReason for visit Narrative* Rehabilitation - Outpatient (Routine) - Authorized Specialty Diagnoses / Procedures Referred By Brandee t Referred To Contact Physical Therapy Diagnoses Spondylolysis, cervical region Procedures [place] THER PX 1/> AREAS EACH 15 MIN NEUROMUSC REEDUCA [place] THERAPEUTIC PX 1/> AREAS EACH 15 MIN EXERCISES [place] MANUAL THERAPY TQS 1/> REGIONS EACH 15 MINUTES PHYS/OCC THERAPY SS Jairo Corbin MD [address] [place] [address] Phone: tel: fax: [facility] [address] [address] Phone: tel: fax: Referral ID Status Reason Start Date Expiration Date V isits Requested Visits Authorized [id number] Authorized 10/03/2024 10/02/2025 30 30 [facility] Chief Complaint and Reason for Visit Chief [...] 4pm Localized swelling of left lower leg [facility] 2024 3:34pm Neck pain December 24, 2024 3:3 4pm Nonischemic cardiomyopathy December 24, 2 025 3:34pm JANETTE (obstructive sleep apnea) December 3:34pm Elevated troponin December 25, 2024 12: 48am Hypertension December 25, 2024 12: 48am Localized swelling of left lower leg [facility] 2024 12:48am Nonischemic cardiomyopathy December 25, 2 [...] Relationship Condition Age at Onset Recorded Date/T marielean father History of heart brad ve replacement [...] Non-ischemic cardiomyopathy (Multi) Procedures Transthoracic Echo Complete [place] ECHO TTHRC R-T 2D W/WOM-MODE COMPL SPEC&COLR D Mary Neal MD [address] [place] [address] [place] [address] Referral ID Status Reason Start Date Expiration Date Visits Requested Visits Authorized [id number] Pending Review Perform Procedure 01/30/2024 01/29/2025 1 1 Specialty Diagnoses / Procedures Referred By Contac t Referred To Contact Cardiology Diagnoses Persistent atrial fibrillation (Multi) Procedures Follow Up In Cardiology Mary Neal MD [address] [address] [place] [address] Mary Neal MD [address] [place] [address] Referral ID Status Reason Start Date Expiration Date V isits Requested Visits Authorized [id number] Authorized 01/30/2024 01/29/2025 1 1 Specialty Diagnoses / Procedures Referred By Contac t Referred To Contact Diagnoses Persistent atrial fibrillation (Multi) Procedures ECG 12 Lead Mary Neal MD [address] [facility] [address] [place] [address] Referral ID Status Reason Start Date Expiration Date V isits Requested Visits Authorized [id number] Authorized 01/30/2024 01/29/2025 1 1 Specialty Diagnoses / Procedures Referred By Contac t Referred To Contact Diagnoses Paroxysmal atrial fibrillation (CMS/HCC) Procedures ECG 12 Lead Karlo Aldridge, BUTTON GRADER-DINKEY LOCOMOTIVE ENGINEER [address] [facility] [address], [address] [place] [address] Referral ID Status Reason Start Date Expiration Date V isits Requested Visits Authorized [id number] Pending Review 09/07/2023 09/06/2024 1 1 Specialty Diagnoses / Procedures Referred By Contac t Referred To Contact Cardiology Diagnoses Paroxysmal atrial fibrillation (CMS/HCC) Procedures Follow Up In Cardiology Luis Carlos Karlo K, BUTTON GRADER-DINKEY LOCOMOTIVE ENGINEER [facility] [facility], [address] [place] [address] Mary Neal MD [address] [facility] [address] [place] [address] Referral ID Status Reason Start Date Expiration Date V isits Requested Visits Authorized [id number] Authorized 09/05/2023 09/04/2024 1 1 Additional Source Comments REASON FOR VISIT (unrecogniz ed section and content) Reason Comments Follow-up [facility] discharge 04/17 Reason Comments Nasal Congestion C/o [...] Up In Cardiology Mary Neal MD [address] [facility] [address] [place] [address] Phone: tel: fax: Mary Neal MD [address] [place], [place] [address] [address] [place] [address] Phone: tel: fax: Referral ID Status Reason Start Date Expiration Date V isits Requested Visits Authorized [id number] Authorized 07/30/2024 07/30/2025 1 1 Reason Onset [...] ECG 12 Lead Mary Neal MD [address] [address] Phone: tel: fax: Referral ID Status Reason Start Date Expiration Date V isits Requested Visits Authorized [id number] Authorized 11/30/2024 11/30/2025 1 1 Reason Comments Follow-up 4 month Specialty Diagnoses / Procedures Referred By Contac t Referred To Contact Cardiology Diagnoses Non-ischemic cardiomyopathy (Multi) Procedures Follow Up In Cardiology Karlo Aldridge, BUTTON GRADER-DINKEY LOCOMOTIVE ENGINEER [facility] [facility] [place] [address] Phone: tel: fax: Mary Neal MD [address] [facility] [address] [place] [address] Phone: tel: fax: Referral ID Status Reason Start Date Expiration Date V isits Requested Visits Authorized [id number] Authorized 03/21/2024 03/21/2025 1 1 Reason Comments Pre-op Clearance Dental Work 02/03 Specialty Diagnoses / Procedures Referred By Contac t Referred To Contact Cardiology Diagnoses 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 congestive heart failure, NYHA class 2 (Multi) Persistent atrial fibrillation (Multi) Procedures Follow Up In Cardiology Mary Neal MD [address] [place] [address] Mary Neal MD [address] [facility] [address] [place] [address] Referral ID Status Reason Start Date Expiration Date V isits Requested Visits Authorized [id number] Authorized 11/10/2023 11/09/2024 1 1 Reason Comments Follow-up 6 weeks [facility] [place] inpatient [facility] Specialty Diagnoses / Procedures Referred By Contac t Referred To Contact Cardiology Diagnoses Non-ischemic cardiomyopathy (CMS/HCC) 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 congestive heart failure, NYHA class 2 (CMS/HCC) Procedures Follow Up In Cardiology Mary Neal MD [address] [place] [address] Mary Neal MD [address] [facility] [address] [place] [address] Referral ID Status Reason Start Date Expiration Date V isits Requested Visits Authorized [id number] Authorized 09/29/2023 09/28/2024 1 1 TCM Reason Comments Follow-up 2wk Specialty Diagnoses / Procedures Referred By Brandee t Referred To Contact Cardiology Diagnoses Paroxysmal atrial fibrillation (CMS/HCC) Procedures Follow Up In Cardiology Karlo Aldridge APRN-DINKEY LOCOMOTIVE ENGINEER [address] [facility] [address], [address] [place] [address] Mary Neal MD [address] [facility] [address] [place] [address] Referral ID Status Reason Start Date Expiration Date V isits Requested Visits Authorized [id number] Authorized 09/05/2023 09/04/2024 1 1 new referral Reason Comments Pre-op Clearance Follow-up Test results 3 month Follow upWellnessFRMCsinusesEye Issues/ Swelling on [id number] COVID +COVIDSick- [phone] Care Teams (unrecognized sec tion and content) Team Status: Active Member Role Status Dates Jairo Cobrin DO Primary Care Provider Active Team Status: [...] March 23, 2024 Karlo K Aldridge , BUTTON GRADER Attending Provider Active S tart: March 23, [...] MD Other Provider Active Karlo Aldridge , BUTTON GRADER Other Provider Active Mary Neal MD Other Provider Active Danny Teresa MD Other Provider Active Kerline Thompson MD Other Provider Active Sravani Spears , [facility] Other Provider Active Sparkle Joseph MD Other Provider Active Team Status: Inactive Member Role Status Dates Jairo Corbin , DO Primary Care Provider Active W Bonilla Lucio , DO Attending Provider Active Team Status: Inactive Member Role Status Dates Jairo Corbin , DO Primary Care Provider Active Jairo Wild , DO Attending Provider Active Vpk Teacher Relationship Specialty Start Date End Date Jairo Corbin, DO [address] [facility] [place] [address] PCP - General Internal Medicine 08/23/23 Jairo Wild DO [address] [place] [address] Referring Physician Otolaryngology 09/05/23 Vpk Teacher Relationship Specialty Start Date End Date Jairo Corbin, DO [address] [facility] [place] [address] PCP - General Internal Medicine 08/23/23 Jairo Wild DO [address] [place] [address] Referring Physician Otolaryngology 09/05/23 Team Status: Inactive [...] DO RES Active Start: October 21, 2023 Car Aldridge MD Emergency Provider Active Star t: October 21, 2023 Bon Harman DO Admit Provider , Attending Provider, Other Provider Active Start: October 21, 2023 Vpk Teacher Relationship Specialty Start Date End Date Jairo Corbin DO [address] [place] [address] [place] [address] PCP - General Internal Medicine 08/23/23 Jairo Wild DO [address] [place] [address] Referring Physician Otolaryngology 09/05/23 Team Status: Inactive Member Role Status Dates Jairo Corbin DO Primary Care Provider Active Start: September 13, 2023 End: September 13, 2023 Jairo Wild DO Attending Provider Active S tart: September 13, 2023 End: September 13, 2023 Team Status: Inactive Member Role Status Dates Jairo Corbin DO Attending Provider Active Sta rt: November 01, 2023 End: November 01, 2023 Vpk Teacher Relationship Specialty Start Date End Date Jairo Corbin DO [facility] [place] [address] PCP - General Internal Medicine 01/30/24 Jairo Wild DO [address] [place] [address] Referring Physician Otolaryngology 09/05/23 Team Status: Inactive Member Role Status Dates Jairo Corbin DO Primary Care Provide r, Attending Provider Active Start: January 31, 2024 End: January 31, 2024 Vpk Teacher Relationship Specialty Start Date End Date Jairo Corbin DO [address] [place] [address] PCP - General Internal Medicine 01/30/24 Jairo Wild DO [address] [place] [address] Referring Physician Otolaryngology 09/05/23 Vpk Teacher Relationship Specialty Start Date End Date Jairo Corbin DO [address] [place] [address] PCP - General Internal Medicine 01/30/24 Jairo Wild DO [address] [place] [address] Referring Physician Otolaryngology 09/05/23 Vpk Teacher Relationship Specialty Start Date End Date Jairo Corbin MD [address] [place] [address] PCP - General Internal Medicine 04/06/23 Vpk Teacher Relationship Specialty Start Date End Date Jairo Corbin MD [address] [place] [address] PCP - General Internal Medicine 04/06/23 Vpk Teacher Relationship Specialty Start Date End Date Jairo Corbin MD [address] [place] [address] PCP - General Internal Medicine 04/06/23 Vpk Teacher Relationship Specialty Start Date End Date Jairo Corbin MD [address] [facility] [place] [address] PCP - General Internal Medicine 04/06/23 Vpk Teacher Relationship Specialty Start Date End Date Jairo Corbin MD [address] [facility] [place] [address] PCP - General Internal Medicine 04/06/23 Vpk Teacher Relationship Specialty Start Date End Date Jairo Corbin MD [address] [facility] [place] [address] PCP - General Internal Medicine 04/06/23 Vpk Teacher Relationship Specialty Start Date End Date Jairo Corbin MD [address] [facility] [place] [address] PCP - General Internal Medicine 04/06/23 Vpk Teacher Relationship Specialty Start Date End Date Jairo Corbin MD [address] [facility] [place] [address] PCP - General Internal Medicine 04/06/23 Vpk Teacher Relationship Specialty Start Date End Date Jairo Corbin MD [address] [facility] [place] [address] PCP - General Internal Medicine 04/06/23 Vpk Teacher Relationship Specialty Start Date End Date Jairo Corbin MD [address] [facility] [place] [address] PCP - General Internal Medicine 04/06/23 Vpk Teacher Relationship Specialty Start Date End Date Jairo Corbin MD [address] [place] [address] PCP - General Internal Medicine 04/06/23 Vpk Teacher Relationship Specialty Start Date End Date Jairo Corbin MD [address] [place] [address] PCP - General Internal Medicine 04/06/23 Vpk Teacher Relationship Specialty Start Date End Date Jairo Corbin MD [address] [place] [address] PCP - General Internal Medicine 04/06/23 Vpk Teacher Relationship Specialty Start Date End Date Jairo Corbin DO [address] [place] [address] PCP - General Internal Medicine 01/30/24 Jairo Wild DO [address] [place] [place] [address] Referring Physician Otolaryngology 09/05/23 Team Status: Inactive [...] December 25, 2024 End: December 25, 2024 Ruby Prince MD Other Provider Active St [...] 2024 End: December 25, 2024 Sravani Spears [facility] Other Provider Active Sta rt: December 25, 2024 End: December 25, 2024 Vpk Teacher Relationship Specialty Start Date End Date Jairo Corbin MD [address] [place] [address] PCP - General Internal Medicine 04/06/23 Vpk Teacher Relationship Specialty Start Date End Date Jairo Corbin MD [address] [place] [address] PCP - General Internal Medicine 04/06/23 Vpk Teacher Relationship Specialty Start Date End Date Jairo Corbin DO [address] [place] [address] PCP - General Internal Medicine 01/30/24 Jairo Wild DO [address] [place] [address] Referring Physician Otolaryngology 09/05/23 Team Status: Inactive Member Role Status Dates Jairo Wild DO Attending Provider Active S tart: February 13, 2025 End: February 13, 2025 Vpk Teacher Relationship Specialty Start Date End Date Jairo Corbin PCP - General Internal Medicine 04/06/23 Vpk Teacher Relationship Specialty Start Date End Date Jairo Corbin DO PCP - General Internal Medicine 04/06/23 Team Status: Inactive Member Role Status Dates Jairo Corbin DO Primary Care Provide r, Attending Provider Active Start: March 11, 2025 End: March 11, 2025 Vpk Teacher Relationship Specialty Start Date End Date [...] April 16, 2025 End: April 17, 2025 iZggy Evans MD Admit Provider Active S tart: [...] End: April 17, 2025 Sravani Spears , [facility]- Other Provider Active Sta rt: April 16, 2025 End: April 17, 2025 Vpk Teacher Relationship Specialty Start Date End Date [...] May 01, 2025 End: May 01, 2025 Vpk Teacher Relationship Specialty Start Date End Date Jairo Corbin DO [address] [place] [address] PCP - General Internal Medicine 01/30/24 Jairo Wild DO [address] [place] [address] Referring Physician Otolaryngology 09/05/23 (unrecognized sect ion and content) No Status Records FoundNo Status Records FoundNo Status Records FoundNo Status Records FoundNo Status Records FoundNo Status Records FoundNo Status Records FoundNo Status Records Found INFORMATION SOURCE (unrecogn ized section and content) DATE CREATED AUTHOR 03/14/2023 [facility] DATE CREATED AUTHOR AUTHOR'S ORGANIZ ATION 05/11/2023 [facility] DATE CREATED AUTHOR AUTHOR'S ORGANIZ ATION 06/18/2023 [employer] DATE CREATED AUTHOR AUTHOR'S ORGANIZ ATION 07/13/2023 [facility] DATE CREATED AUTHOR AUTHOR'S ORGANIZ ATION 02/17/2024 [facility] DATE CREATED AUTHOR AUTHOR'S ORGANIZ ATION 04/19/2025 [facility] DATE CREATED AUTHOR AUTHOR'S ORGANIZ ATION 04/24/2025 [facility] EPIC DATE CREATED AUTHOR AUTHOR'S ORGANIZ ATION 05/16/2025 [facility] Goals (unrecognized section and content) Type [...] BE BASED ON THE PRIMARY CLINICAL RECORDS. [employer] [facility]. provides no warranty or guarantee of the accuracy or completeness of information in this document.
== END 2025-05-29 12:29 | disposition home or self-care (01) ==
LOC: MRI 12:28
PROVIDERS: PCP Internal Medicine; Visit Provider Internal Medicine
DX: G31.84 Mild cognitive impairment of uncertain or unknown etiology (principal)
CPT/HCPCS: 70030; 70551

== ENCOUNTER 2025-08-14 13:52 | Outpatient (RCR) | payer MEDICARE, OTHER, SELFPAY | END 2025-09-01 23:59 | disposition home or self-care (01) | LOC: MM 13:52 | PROVIDERS: PCP Internal Medicine; Visit Provider Internal Medicine | DX: Z51.81 Encounter for therapeutic drug level monitoring (principal); Z79.01 Long term (current) use of 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s; I48.0 Paroxysmal atrial fibrillation | CPT/HCPCS: 85610; G0463 ==

== ENCOUNTER 2025-10-01 15:46 | Outpatient (RCR) | payer MEDICARE, OTHER, SELFPAY | END 2025-10-02 12:34 | disposition home or self-care (01) | LOC: MM 15:46 | PROVIDERS: PCP Internal Medicine; Visit Provider Internal Medicine | DX: Z51.81 Encounter for therapeutic drug level monitoring (principal); Z79.01 Long term (current) use of 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s; I48.0 Paroxysmal atrial fibrillation | CPT/HCPCS: 85610; G0463 ==